=== PATIENT | female | born 1945 | race Caucasian/White ===

== ENCOUNTER 2017-01-26 06:04 | Observation (INO) | payer MEDICARE ==
[~2017-01-26] VITALS: Ht 165.1 cm; Wt 75.7 kg
[~2017-01-26 06:04] MED LIST: ALLERGY10 M1 PO; AMLODIPINE BESYL5 MG PO; ANTI-DIARRHEAL2 M1 PO; ASPIR-TRIN325 MG PO; ASPIRIN EC325 MG PO; ASPIRIN EC81 MG PO; ATIVAN1 MG PO; B-121000 MC2 PO; B-125000 MC1 SL; BIOTIN5 MG PO; BUSPIRONE HCL5 MG PO; CALCITRATE200 MG PO; CALCIUM 500 +1 EAC2 PO; CLOPIDOGREL75 MG PO; CRESTOR10 MG PO; CYMBALTA30 MG PO; CYMBALTA60 MG PO; DEXILANT30 MG PO; FLUTICASONE PRO16 GM NAS; ISOSORBIDE MONO30 MG PO; LEVOXYL137 MCG PO; LIPITOR40 MG PO; LIPITOR80 MG PO; LISINOPRIL-HCT1 EAC1 PO; LISINOPRIL-HCT1 EACH PO; LISINOPRIL2.5 MG PO; LORATADINE10 MG PO; MACROBID 100 M100 MG PO; MAGNESIUM400 MG PO; METFORMIN HCL500 M1 PO; METFORMIN HCL500 MG PO; METHOCARBAMOL500 MG PO; MULTIVITAMINS1 EAC7 PO; MULTIVITAMINS1 EAC8 PO; NITROSTAT0.4 MG SL; NORVASC2.5 MG PO; OMEPRAZOLE20 MG PO; PLAVIX75 MG PO; SYNTHROID25 MCG PO; TYLENOL COLD M240 M1 PO; TYLENOL325 MG PO; VITAMIN C60 MG PO; VITAMIN D31000 UNIT PO; VITAMIN D3400 UNI1 PO; VITAMIN D50000 UNI1 PO; VOLTAREN100 GM TOP; XANAX0.25 MG PO
[2017-01-26] MEDS ORDERED: AMOX TR-K CLV1 EAC1 PO (06:24)
[2017-01-26] MEDS ORDERED: VOLTAREN100 GM TOP (06:26)
--- OUTSIDE RECORDS SUMMARY | 2017-01-26 06:57 | XMS ---
Demographics + + + | Address | [address] | | | [address] | | | [place] [address] | + + + | Preferred Language | Unknown | + + + | Marital Status | Unknown | + + + | Judaism Affiliation | Unknown | + + + | Race | Unknown | + + + | Ethnic Group | Unknown | + + + Author + + + | Author | [facility] | + + + | Organization | [facility] | + + + | Address | [address] | | | [place] [address] | + + + | Phone | | + + + Care Team Providers + + + + | Care Occupational Health Specialist Name | Role | Phone | + + + + Unavailable | Unavailable | + + + + PROBLEMS +---------+ + + +--------+ + + | Type | Condition | ICD9-CM | [id number] | Onset | Condition | SNOMED | | | | Code | Code | Dates | Status | Code | +---------+ + + +--------+ + + | Problem | NEHEMIAH | G47.33 | | | Active | 47116749 | | | (obstructi | | | | | | | | ve sleep | | | | | | | | apnea) | | | | | | +---------+ + + +--------+ + + | Problem | Stenosis | I65.21 | | | Active | 3297442100 | | | of right | | | | | [address]6879 | | | carotid | | | | | | | | artery | | | | | | +---------+ + + +--------+ + + | Problem | Cellulitis | 681.10 | | | Active | 95052072 | | | of toe | | | | | | | | NOS | | | | | | +---------+ + + +--------+ + + | Problem | Acute | 461.9 | | | Active | 90417125 | | | sinusitis | | | | | | | | NOS | | | | | | +---------+ + + +--------+ + + | Problem | Vitamin D | 268.9 | | | Active | 92296615 | | | deficiency | | | | | | | | NOS | | | | | | +---------+ + + +--------+ + + | Problem | Hypothyroi | 244.9 | | | Active | 44088997 | | | dism | | | | | | | | (acquired) | | | | | | +---------+ + + +--------+ + + | Problem | Hyperchole | 272.0 | | | Active | 03515325 | | | sterolemia | | | | | | +---------+ + + +--------+ + + | Problem | Cognitive | 438.0 | | | Active | 649872386 | | | deficits | | | | | | +---------+ + + +--------+ + + | Problem | Sleep | 786.09 | | | Active | 42935101 | | | apnea | | | | | | +---------+ + + +--------+ + + | Problem | Fibromyalg | | M79.7 | | Active | 277070719 | | | ia | | | | | | +---------+ + + +--------+ + + | Problem | Hypertensi | 401.9 | | | Active | 38084824 | | | on | | | | | | +---------+ + + +--------+ + + | Problem | Aortic | I35.8 | | | Active | 9555043 | | | heart | | | | | | | | murmur on | | | | | | | | examinatio | | | | | | | | n | | | | | | +---------+ + + +--------+ + + | Problem | Diabetes | 250.00 | | | Active | 20365741 | | | mellitus | | | | | | | | type II | | | | | | +---------+ + + +--------+ + + | Problem | Heart | | R01.1 | | Active | 30539568 | | | murmur | | | | | | +---------+ + + +--------+ + + | Problem | Diabetes | E11.9 | | | Active | 362319961 | | | mellitus | | | | | | | | type 2 in | | | | | | | | nonobese | | | | | | +---------+ + + +--------+ + + | Problem | Aortic | I35.0 | | | Active | 31638940 | | | stenosis | | | | | | +---------+ + + +--------+ + + | Problem | Gout | | M10.9 | | Active | 41787120 | +---------+ + + +--------+ + + | Problem | Carotid | I65.29 | | | Active | 75356651 | | | stenosis | | | | | | +---------+ + + +--------+ + + | Problem | JOINT | 719.47 | | | Active | 288616541 | | | PAIN-ANKLE | | | | | | +---------+ + + +--------+ + + | Problem | Panic | 300.01 | | | Active | 58221734 | +---------+ + + +--------+ + + | Problem | Allergic | 477.8 | | | Active | 71090427 | | | rhinitis | | | | | | | | due to | | | | | | | | allergen | | | | | | +---------+ + + +--------+ + + | 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 | | | Active | 40675418 | | | (arteriosc | | | | | | | | lerotic | | | | | | | | cardiovasc | | | | | | | | ular | | | | | | | | disease) | | | | | | +---------+ + + +--------+ + + | Problem | Dyslipidem | E78.5 | | | Active | 549356266 | | | ia | | | | | | +---------+ + + +--------+ + + | Problem | Right-side | I63.9 | | | Active | 936790543 | | | d | | | | | | | | cerebrovas | | | | | | | | cular | | | | | | | | accident | | | | | | | | (CVA) | | | | | | +---------+ + + +--------+ + + | Problem | Essential | | I10 | | Active | 02420418 | | | hypertensi | | | | | | | | on | | | | | | +---------+ + + +--------+ + + | Problem | Postop | Z48.812 | | | Active | | | | carotid | | | | | | | | endarterec | | | | | | | | rosaline | | | | | | | | surveillan | | | | | | | | ce, | | | | | | | | encounter | | | | | | | | for | | | | | | +---------+ + + +--------+ + + | Problem | Fibromyalg | 729.1 | | | Active | 031464716 | | | ia muscle | | | | | | | | pain | | | | | | +---------+ + + +--------+ + + | Problem | Iron | | D50.9 | | Active | 18529602 | | | deficiency | | | | | | | | anemia | | | | | | +---------+ + + +--------+ + + | Problem | GSE | 579.0 | | | Active | 186109208 | | | (gluten-se | | | | | | | | nsitive | | | | | | | | enteropath | | | | | | | | y) | | | | | | +---------+ + + +--------+ + + | Problem | Obesity, | 278.00 | | | Active | 400534601 | | | unspecifie | | | | | | | | d | | | | | | +---------+ + + +--------+ + + | Problem | Coccygodyn | 724.79 | | | Active | 69054431 | | | ia | | | | | | +---------+ + + +--------+ + + | Problem | Osteoarthr | M15.9 | | | Active | 982736906 | | | itis of | | | | | | | | multiple | | | | | | | | joints | | | | | | +---------+ + + +--------+ + + | Problem | Situationa | F43.21 | | | Active | 84044200 | | | l | | | | | | | | depression | | | | | | +---------+ + + +--------+ + + | Problem | Type II | 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
--- OUTSIDE RECORDS SUMMARY | 2017-01-26 06:57 | XMS ---
Demographics + + + | Address | [address] | | | [address] | | | [place] [address] | + + + | Preferred Language | Unknown | + + + | Marital Status | Unknown | + + + | Lutheran Affiliation | Unknown | + + + | Race | Unknown | + + + | Ethnic Group | Unknown | + + + Author + + + | Author | [facility] | + + + | Organization | [facility] | + + + | Address | [address] | | | [place] [address] | + + + | Phone | | + + + Care Team Providers + + + + | Care Rehabilitation Director Name | Role | Phone | + + + + Unavailable | Unavailable | + + + + PROBLEMS +---------+ + + +--------+ + + | Type | Condition | ICD9-CM | [id number] | Onset | Condition | SNOMED | | | | Code | Code | Dates | Status | Code | +---------+ + + +--------+ + + | Problem | NEHEMIAH | G47.33 | | | Active | 85504699 | | | (obstructi | | | | | | | | ve sleep | | | | | | | | apnea) | | | | | | +---------+ + + +--------+ + + | Problem | Stenosis | I65.21 | | | Active | 3626382051 | | | of right | | | | | [address] | | | carotid | | | | | | | | artery | | | | | | +---------+ + + +--------+ + + | Problem | Cellulitis | 681.10 | | | Active | 56227497 | | | of toe | | | | | | | | NOS | | | | | | +---------+ + + +--------+ + + | Problem | Acute | 461.9 | | | Active | 40774644 | | | sinusitis | | | | | | | | NOS | | | | | | +---------+ + + +--------+ + + | Problem | Vitamin D | 268.9 | | | Active | 96691711 | | | deficiency | | | | | | | | NOS | | | | | | +---------+ + + +--------+ + + | Problem | Hypothyroi | 244.9 | | | Active | 96323891 | | | dism | | | | | | | | (acquired) | | | | | | +---------+ + + +--------+ + + | Problem | Hyperchole | 272.0 | | | Active | 35753101 | | | sterolemia | | | | | | +---------+ + + +--------+ + + | Problem | Cognitive | 438.0 | | | Active | 117430246 | | | deficits | | | | | | +---------+ + + +--------+ + + | Problem | Sleep | 786.09 | | | Active | 88627262 | | | apnea | | | | | | +---------+ + + +--------+ + + | Problem | Fibromyalg | | M79.7 | | Active | 280946408 | | | ia | | | | | | +---------+ + + +--------+ + + | Problem | Hypertensi | 401.9 | | | Active | 87561010 | | | on | | | | | | +---------+ + + +--------+ + + | Problem | Aortic | I35.8 | | | Active | 8237043 | | | heart | | | | | | | | murmur on | | | | | | | | examinatio | | | | | | | | n | | | | | | +---------+ + + +--------+ + + | Problem | Diabetes | 250.00 | | | Active | 76946026 | | | mellitus | | | | | | | | type II | | | | | | +---------+ + + +--------+ + + | Problem | Heart | | R01.1 | | Active | 86946404 | | | murmur | | | | | | +---------+ + + +--------+ + + | Problem | Diabetes | E11.9 | | | Active | 745962410 | | | mellitus | | | | | | | | type 2 in | | | | | | | | nonobese | | | | | | +---------+ + + +--------+ + + | Problem | Aortic | I35.0 | | | Active | 03426176 | | | stenosis | | | | | | +---------+ + + +--------+ + + | Problem | Gout | | M10.9 | | Active | 12924293 | +---------+ + + +--------+ + + | Problem | Carotid | I65.29 | | | Active | 05524044 | | | stenosis | | | | | | +---------+ + + +--------+ + + | Problem | JOINT | 719.47 | | | Active | 241462052 | | | PAIN-ANKLE | | | | | | +---------+ + + +--------+ + + | Problem | Panic | 300.01 | | | Active | 38019043 | +---------+ + + +--------+ + + | Problem | Allergic | 477.8 | | | Active | 94732335 | | | rhinitis | | | | | | | | due to | | | | | | | | allergen | | | | | | +---------+ + + +--------+ + + | 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 | | | Active | 09040366 | | | (arteriosc | | | | | | | | lerotic | | | | | | | | cardiovasc | | | | | | | | ular | | | | | | | | disease) | | | | | | +---------+ + + +--------+ + + | Problem | Dyslipidem | E78.5 | | | Active | 538226209 | | | ia | | | | | | +---------+ + + +--------+ + + | Problem | Right-side | I63.9 | | | Active | 134318279 | | | d | | | | | | | | cerebrovas | | | | | | | | cular | | | | | | | | accident | | | | | | | | (CVA) | | | | | | +---------+ + + +--------+ + + | Problem | Essential | | I10 | | Active | 38493908 | | | hypertensi | | | [...] | 729.1 | | | Active | 838974054 | | | ia muscle | | | | | | | | pain | | | | | | +---------+ + + +--------+ + + | Problem | Iron | | D50.9 | | Active | 03006285 | | | deficiency | | | | | | | | anemia | | | | | | +---------+ + + +--------+ + + | Problem | GSE | 579.0 | | | Active | 733292171 | | | (gluten-se | | | | | | | | nsitive | | | | | | | | enteropath | | | | | | | | y) | | | | | | +---------+ + + +--------+ + + | Problem | Obesity, | 278.00 | | | Active | 740194430 | | | unspecifie | | | | | | | | d | | | | | | +---------+ + + +--------+ + + | Problem | Coccygodyn | 724.79 | | | Active | 59576236 | | | ia | | | | | | +---------+ + + +--------+ + + | Problem | Osteoarthr | M15.9 | | | Active | 282932165 | | | itis of | | | | | | | | multiple | | | | | | | | joints | | | | | | +---------+ + + +--------+ + + | Problem | Situationa | F43.21 | | | Active | 44726675 | | | l | | | | | | | | depression | | | | | | +---------+ + + +--------+ + + | Problem | Type II | 250.00 | | | Active | 29615373 | | | diabetes | | | | | | | | mellitus | | | | | | +---------+ + + +--------+ + + | Problem | Foot pain, | 729.5 | | | Active | 79652060 | | | right | | | | | | +---------+ + + +--------+ + + ALLERGIES + + + + +--------+ | Substance | Reaction | Event Type | Date | Status | + + + + +--------+ | Metoprolol | edema | Drug Allergy | Jan, | Active | | Tartrate | | | | | + + + + +--------+ | Humalog | N/V/D, headache | Drug Allergy | Jan, | Active | + + + + +--------+ | DiphenhydrAMINE | Unknown | Drug Allergy | Jan, | Active | | HCl | | | | | + + + + +--------+ | Dkiufnok-YCV-4 | rash/blisters | Drug Allergy | Jan, | Active | + + + + +--------+ | Actos | Edema | Drug Allergy | Jan, | Active | + + + + +--------+ | Abilify | shortness of | Drug Allergy | Jan, | Active | | | breath, | | | | | | hives,rash | | | | + + + + +--------+ | Shellfish | anaphylaxis | Non Drug | Jan, | Active | | | | Allergy | | | + + + + +--------+ | HMG-CoA-R | generalized | Non Drug | Jan, | Active | | | myalgias | Allergy | | | + + + + +--------+ | Bee Sting | anaphylaxis | Non Drug | Jan, | Active | | | | Allergy | | | + + + + +--------+ | Clonidine | Anaphlyactic | Non Drug | Jan, | Active | | | Shock | Allergy | | | + + + + +--------+ SOCIAL HISTORY Never Assessed PLAN OF CARE + +---------+ | Activity | Details | + +---------+ +---+ | | +---+ + + + | Follow Up | prn Reason:null | + + + | Pending Test | Throat Culture | + + + VITAL SIGNS + + + + | Height | 66 in | 2017-01-24 | + + + + | Weight | 162.0 lbs | 2017-01-24 | + + + + | BMI | 26.14 kg/m2 | 2017-01-24 | + + + + | Temperature | 96.9 degrees Fahrenheit | 2017-01-24 | + + + + | Heart Rate | 63 /min | 2017-01-24 | + + + + | Blood pressure systolic | 149 mm Hg | 2017-01-24 | + + + + | Blood pressure diastolic | 59 mm Hg | 2017-01-24 | + + + + MEDICATIONS + + + + + + + +--------+ | Medicati | Instruct | Dosage | Frequenc | Start | End Date | Duration | Status | | on | ions | | y | Date | | | | + + + + + + + +--------+ | Nitrosta | | | | | | | Active | | t 0.4 MG | | | | | | | | + + + + + + + +--------+ | Multivit | Orally | 1 | 24h | | | | Active | | amins | Once a | chewable | | | | | | | | day | | | | | | | + + + + + + + +--------+ | Lipitor | Orally | 1 tablet | 24h | | | | Active | | 80 MG | Once a | | | | | | | | | day | | | | | | | + + + + + + + +--------+ | Isosorbi | Orally | 1 tablet | 24h | | | | Active | | de | Once a | | | | | | | | Mononitr | day | | | | | | | | ate ER | | | | | | | | | 30 MG | | | | | | | | + + + + + + + +--------+ | Biotin | Orally | 1 tablet | 24h | | | | Active | | | Once a | | | | | | | | | day | | | | | | | + + + + + + + +--------+ | Plavix | Orally | 1 tablet | 24h | | | | Active | | 75 MG | Once a | | | | | | | | | day | | | | | | | + + + + + + + +--------+ | Cymbalta | | TAKE ONE | | | | 30 | Active | | 60mg | | CAPSULE | | | | | | | | | BY | | | | | | | | | MOUTH | | | | | | | | | EVERY | | | | | | | | | DAY | | | | | | + + + + + + + +--------+ | Calcium | Orally | 1 tablet | 24h | | | | Active | | Citrate | Once a | with | | | | | | | + D 950 | Day | meals | | | | | | | mg | | | | | | | | + + + + + + + +--------+ | Voltaren | | | | | | | Active | | 1 % | | | | | | | | + + + + + + + +--------+ | BusPIRon | | TAKE 1 | | | | 30 | Active | | e HCl 5 | | TABLET | | | | | | | | | BY MOUTH | | | | | | | | | TWICE | | | | | | | | | DAILY | | | | | | + + + + + + + +--------+ | Vitamin | Orally | 1 tablet | 24h | | | | Active | | B-12 | Once a | | | | | | | | 1000 MCG | day | | | | | | | + + + + + + + +--------+ | Tylenol | Orally | 2 tablet | 6h | | | | Active | | 325 MG | every 6 | as | | | | | | | | hrs | needed | | | | | | + + + + + + + +--------+ | Multi | Orally | 2 | | | | | Active | | Symptom | prn | tablets | | | | | | | Allergy | | as | | | | | | | Relief | | needed | | | | | | | 2-5-325 | | | | | | | | | MG | | | | | | | | + + + + + + + +--------+ | EpiPen 1 | Intramus | as | | 10 Joselito, | | | Active | | MG/ML | cular | directed | | 2011 | | | | | | PRN | | | | | | | | | allergic | | | | | | | | | | | | | | | | | | response | | | | | | | + + + + + + + +--------+ | Lisinopr | | TAKE 1 | | | | 90 | Active | | il-Finley | | TABLET | | | | | | | chloroth | | BY MOUTH | | | | | | | iazide 0 | | EVERY | | | | | | | | | DAY | | | | | | + + + + + + + +--------+ | Norvasc | Orally | 1 tablet | 24h | Jun, | | 30 | Active | | 2.5 MG | Once a | | | 2016 | | day(s) | | | | day | | | | | | | + + + + + + + +--------+ | Aspirin | Orally | 2 tablet | 24h | | | | Active | | 81 MG | Once a | | | | | | | | | day | | | | | | | + + + + + + + +--------+ | Leg | Orally | 1-2 | | | | | Active | | Cramp | Q4H | tab(s) | | | | | | | Relief - | | | | | | | | + + + + + + + +--------+ | Levothyr | Orally | 1 tablet | 24h | | | | Active | | oxine | Once a | every | | | | | | | Sodium | day | morning | | | | | | | 150 MCG | | on an | | | | | | | | | empty | | | | | | | | | stomach | | | | | | + + + + + + + +--------+ | MetFORMI | Orally | 1 tablet | 24h | 08 Jun, | | 30 | Active | | N HCl ER | Once a | with | | 2016 | | day(s) | | | 500 mg | day | evening | | | | | | | | | meal | | | | | | + + + + + + + +--------+ | Augmenti | p.o. | one | 12h | | 8 Oct, | 7 days | Active | | n 875 mg | twice a | tablet | | | 2017 | | | | | day | | | | | | | + + + + + + + +--------+ RESULTS + +--------+------+ + | Name | Result | Date | Reference Range | + +--------+------+ + | Strep Gp A Rapid | | | | | (IH) | | | | + +--------+------+ + PROCEDURES + + +--------+ + | Procedure | Date Ordered | Result | Body Site | + + +--------+ + | STREP A ASSAY | Jan 24, 2017 | | | | W/OPTIC | | | | + + +--------+ + IMMUNIZATIONS No Known Immunizations MEDICAL (GENERAL) HISTORY + + + + | Type | Description | Date | + + + + | Medical History | DM | | + + + + | Medical History | Hypertension | | + + + + | Medical History | Fibromyalgia | | + + + + | Medical History | Cognitive Dysfunction | | + + + + | Medical History | Fatty Liver | | + + + + | Medical History | Hypercholestrol | | + + + + | Medical History | GERD | | + + + + | Medical History | Depression/Anxiety | | + + + + | Medical History | Hypothyroid | | + + + + | Medical History | Vitamin D deficiency | | + + + + | Medical History | hx/o TIA/CVA | | + + + + | Medical History | Aortic Stenosis with mild | | | | insufficiency by ECHO in | | | | [place], [place]. | | + + + + | Medical History | two-dimensional echo on | | | | 07/26/14: Normal LVE at about | | | | 70-75%, sigmoid septum, | | | | mildly calcified aortic | | | | valve with stenosis, mild | | | | aortic valve insufficiency, | | | | mild mitral valve regurg, | | | | mild tricuspid regurg, | | | | normal right-sided pressure | | + + + + | Medical History | total knee replacement | | | | Melisa Morillo | | + + + + | Medical History | Status post stent placement | | | | 08/09, Melisa Vincent | | | | Ilia, retained 80% | | | | occlusion of one other | | | | vessel., On Imdur. | | + + + + | Medical History | 10/07/2015 4:15:40 PM > | | | | greater than 70% | | | | right-sided carotid artery | | | | stenosis, recent CVA, | | | | transferred to [facility] | | | | [facility] for | | | | cardiac stenting discharged | | | | to [facility] for | | | | stroke rehabilitation, | | | | discharged home, mild | | | | drooping on the left mild | | | | slurring of speech | | + + + + | Medical History | last cardiac catheter | | | | 07/27/15 left main okay, 40% | | | | mid LAD, left circumflex | | | | okay, 90% OM 2, 50% right | | | | mid RCA, O. and 2 stented. | | + + + + | Medical History | last echo 10/01/15: | | | | Borderline concentric LVH, | | | | LVEF greater than 70% mild | | | | to moderate left ear and | | | | mild AI aortic valve area | | | | 1.2 cm, peak/mean gradient | | | | 25/16 mm mercury, trace MR, | | | | mild TR, estimated | | | | systolic PA P. 2328 mmHg | | + + + + | Medical History | last stress test in a | | + + + + | Medical History | last echo 10/01/15, [facility] | | | | [facility], normal | | | | sinus rhythm, 67 beats per | | | | minute | | + + + + | Medical History | Dr. Denny Pardo, | | | | cardiology, last visit | | | | 10/30/15 | | + + + + | Medical History | Right CVA with LEFT sided | | | | weakness, 10/10/15. | | + + + + | Medical History | 11/24-11/26/15 TIA, admitted to | | | | [facility] | | + + + + | Medical History | Bariatric Surgery Dr. Marcial | | | | Lisa 2012: [phone] | | | | fax; [phone] | | + + + + | Medical History | Sleep Apnea: on CPAP,2013 | | | | last sleep study with | | | | Maykel took her off the | | | | CPAP. | | + + + + | Medical History | 01/05/17: Colonoscopy, [facility], | | | | Dr. Jane, external | | | | hemorrhoids, moderate | | | | sigmoid diverticulosis, | | | | previous personal history | | | | of colon polyps, none seen | | | | this colonoscopy | | + + + + | Surgical History | Thyroidectomy | 2005 | + + + + | Surgical History | Appendectomy | | + + + + | Surgical History | Cholecystectomy | | + + + + | Surgical History | Hyst | | + + + + | Surgical History | R Knee arthroscopic surg | | + + + + | Surgical History | Oral surg for sleep apnea | | + + + + | Surgical History | Sinus surg | | + + + + | Surgical History | L breast lumpectomy | | + + + + | Surgical History | Eye exam | 2010 | + + + + | Surgical History | bypass bariatric: Bariatric | | | | Surgery Dr. Aniket Lisa | | | | 2011 | | + + + + | Surgical History | Abdominal hernia x's 3 | | + + + + | Surgical History | stent in heart | | + + + + | Surgical History | knee replacement | june 2015 | + + + + | Hospitalization History | see above | | + + + + | Hospitalization History | heart attack | 07-26-2015 | + + + +"
--- OUTSIDE RECORDS SUMMARY | 2017-01-26 06:57 | XMS ---
Demographics + + + | Address | [address] | | | [address] | | | [place] [address] | + + + | Preferred Language | Unknown | + + + | Marital Status | Unknown | + + + | Tenriism Affiliation | Unknown | + + + | Race | Unknown | + + + | Ethnic Group | Unknown | + + + Author + + + | Author | [facility] | + + + | Organization | [facility] | + + + | Address | [address] | | | [place] [address] | + + + | Phone | | + + + Care Team Providers + + + + | Care Needle Control Cheniller Name | Role | Phone | + + + + Unavailable | Unavailable | + + + + PROBLEMS + + + + + + + + | Type | Condition | ICD9-CM | [id number]-XQ | Onset | Condition | SNOMED | | | | Code | Code | Dates | Status | Code | + + + + + + + + | Problem | Stenosis | I65.21 | | | Active | [id number] | | | of right | | | | | [address]956 | | | carotid | | | | | | | | artery | | | | | | + + + + + + + + | Problem | Postop | [...] for | | | | | | + + + + + + + + | Problem | Cellulitis | 681.10 | | | Active | 01249614 | | | of toe | | | | | | | | NOS | | | | | | + + + + + + + + | Problem | Acute | 461.9 | | | Active | 67580513 | | | sinusitis | | | | | | | | NOS | | | | | | + + + + + + + + | Problem | Vitamin D | 268.9 | | | Active | 55475656 | | | deficiency | | | | | | | | NOS | | | | | | + + + + + + + + | Problem | Hypothyroi | 244.9 | | | Active | 62637840 | | | dism | | | | | | | | (acquired) | | | | | | + + + + + + + + | Problem | Hyperchole | 272.0 | | | Active | 12872540 | | | sterolemia | | | | | | + + + + + + + + | Problem | Cognitive | 438.0 | | | Active | 537515294 | | | deficits | | | | | | + + + + + + + + | Problem | Sleep | 786.09 | | | Active | 12242487 | | | apnea | | | | | | + + + + + + + + | Problem | Fibromyalg | | M79.7 | | Active | 251526032 | | | ia | | | | | | + + + + + + + + | Problem | Hypertensi | 401.9 | | | Active | 66686614 | | | on | | | | | | + + + + + + + + | Problem | Aortic | I35.8 | | | Active | 4279387 | | | heart | | | | | | | | murmur on | | | | | | | | examinatio | | | | | | | | n | | | | | | + + + + + + + + | Problem | Diabetes | 250.00 | | | Active | 41339197 | | | mellitus | | | | | | | | type II | | | | | | + + + + + + + + | Problem | Heart | | R01.1 | | Active | 45733204 | | | murmur | | | | | | + + + + + + + + | Problem | Diabetes | E11.9 | | | Active | 687979005 | | | mellitus | | | | | | | | type 2 in | | | | | | | | nonobese | | | | | | + + + + + + + + | Problem | Aortic | I35.0 | | | Active | 77543817 | | | stenosis | | | | | | + + + + + + + + | Problem | Gout | | M10.9 | | Active | 86653247 | + + + + + + + + | Problem | Carotid | I65.29 | | | Active | 78311926 | | | stenosis | | | | | | + + + + + + + + | Problem | JOINT | 719.47 | | | Active | 787122103 | | | PAIN-ANKLE | | | | | | + + + + + + + + | Problem | Panic | 300.01 | | | Active | 43074839 | + + + + + + + + | Problem | Allergic | 477.8 | | | Active | 89462671 | | | rhinitis | | | | | | | | due to | | | | | | | | allergen | | | | | | + + + + + + + + | 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 | | | Active | 58784682 | | | (arteriosc | | | | | | | | lerotic | | | | | | | | cardiovasc | | | | | | | | ular | | | | | | | | disease) | | | | | | + + + + + + + + | Problem | Dyslipidem | E78.5 | | | Active | 519931920 | | | ia | | | | | | + + + + + + + + | Problem | Right-side | I63.9 | | | Active | 947168225 | | | d | | | | | | | | cerebrovas | | | | | | | | cular | | | | | | | | accident | | | | | | | | (CVA) | | | | | | + + + + + + + + | Problem | Essential | | I10 | | Active | 15135068 | | | hypertensi | | | | | | | | on | | | | | | + + + + + + + + | Assessment | Cellulitis | | L03.115 | 04 September, | Active | 1280421038 | | | of right | | | 2017 | | 9913718 | | | lower limb | | | | | | + + + + + + + + | Problem | Fibromyalg | 729.1 | | | Active | 301966705 | | | ia muscle | | | | | | | | pain | | | | | | + + + + + + + + | Assessment | Type II | 250.00 | | 12 August, | Active | 22943105 | | | diabetes | | | 2017 | | | | | mellitus | | | | | | + + + + + + + + | Problem | GSE | 579.0 | | | Active | 260918181 | | | (gluten-se | | | | | | | | nsitive | | | | | | | | enteropath | | | | | | | | y) | | | | | | + + + + + + + + | Problem | Obesity, | 278.00 | | | Active | 879996915 | | | unspecifie | | | | | | | | d | | | | | | + + + + + + + + | Assessment | Normocytic | D64.9 | | 12 August, | Active | 632612265 | | | anemia | | | 2016 | | | + + + + + + + + | Problem | Coccygodyn | 724.79 | | | Active | 56081006 | | | ia | | | | | | + + + + + + + + | Problem | Osteoarthr | M15.9 | | | Active | 521522115 | | | itis of | | | | | | | | multiple | | | | | | | | joints | | | | | | + + + + + + + + | Problem | Situationa | F43.21 | | | Active | 91615953 | | | l | | | | | | | | depression | | | | | | + + + + + + + + | Problem | Type II | 250.00 | | | Active | 23282005 | | | diabetes | | | | | | | | mellitus | | | | | | + + + + + + + + | Problem | Foot pain, | 729.5 | | | Active | 40898087 | | | right | | | | | | + + + + + + + + ALLERGIES + + + + +--------+ | Substance | Reaction | Event Type | Date | Status | + + + + +--------+ | Metoprolol | edema | Drug Allergy | August, | Active | | Tartrate | | | | | + + + + +--------+ | Humalog | N/V/D, headache | Drug Allergy | August, | Active | + + + + +--------+ | DiphenhydrAMINE | Unknown | Drug Allergy | August, | Active | | HCl | | | | | + + + + +--------+ | Vnticoxa-XUB-5 | rash/blisters | Drug Allergy | August, | Active | + + + + +--------+ | Actos | Edema | Drug Allergy | August, | Active | + + + + +--------+ | Abilify | shortness of | Drug Allergy | August, | Active | | | breath, | | | | | | hives,rash | | | | + + + + +--------+ | Shellfish | anaphylaxis | Non Drug | August, | Active | | | | Allergy | | | + + + + +--------+ | HMG-CoA-R | generalized | Non Drug | August, | Active | | | myalgias | Allergy | | | + + + + +--------+ | Bee Sting | anaphylaxis | Non Drug | August, | Active | | | | Allergy | | | + + + + +--------+ | Clonidine | Anaphlyactic | Non Drug | August, | Active | | | Shock | Allergy | | | + + + + +--------+ SOCIAL HISTORY No smoking Hx information available PLAN OF CARE VITAL SIGNS + + + + | Height | 66 in | 2016-09-04 | + + + + | Weight | 159 lbs | 2016-09-04 | + + + + | BMI | 25.66 kg/m2 | 2016-09-04 | + + + + | Temperature | 98.2 degrees Fahrenheit | 2016-09-04 | + + + + | Heart Rate | 75 /min | 2016-09-04 | + + + + | Blood pressure systolic | 131 mm Hg | 2016-09-04 | + + + + | Blood pressure diastolic | 72 mm Hg | 2016-09-04 | + + + + MEDICATIONS + + + + + + + +--------+ | Medicati | Instruct | Dosage | Frequenc | Start | End Date | Duration | Status | | on | ions | | y | Date | | | | + + + + + + + +--------+ | Vitamin | Orally | 1 | | 01 Jun, | 28 Nov, | 90 | Active | | D | weekly | capsule | | 2016 | 2017 | day(s) | | | (Ergocal | | | | | | | | | ciferol) | | | | | | | | | [address] | | | | | | | | | UNIT | | | | | | | [...] MG/ML | cular | directed | | 2012 | | | | | | PRN [...] + + + +--------+ | Lisinopr | Orally | 1 tablet | 24h | Jan, | | | Active | | [place] | Once a | | | 2012 | | | | | chloroth | day | | | | | | | | iazide | | | | | | | | | 20-25 MG | | | | | | [...] + + + + + +--------+ | Clindamy | Orally | 1 | 8h | 30 August, | 17 August, | 10 | Active | | marty HCl | every 8 | capsule | | 2017 | 2017 | day(s) | | | 150 MG | hrs | | | | | | | [...] + + + + + +--------+ RESULTS No Results PROCEDURES + + + + + | Procedure | Date Ordered | Related Diagnosis | Body Site | + + + + + | Office Visit, Est | September 04, 2016 | | | | Pt., Level 3 | | | | + + + + + | HG A1C LEVEL | September 04, 2016 | | | | 7.0-9.0% | | | | + + + + + | [facility] MED/CURRENT | September 04, 2016 | | | | MED MERGE | | | | + + + + + IMMUNIZATIONS No Known Immunizations"
--- OUTSIDE RECORDS SUMMARY | 2017-01-26 06:57 | XMS ---
Demographics + + + | Address | [address] | | | [address] | | | [place] [address] | + + + | Preferred Language | Unknown | + + + | Marital Status | Unknown | + + + | Synagogue Affiliation | Unknown | + + + | Race | Unknown | + + + | Ethnic Group | Unknown | + + + Author + + + | Author | [facility] | + + + | Organization | [facility] | + + + | Address | [address] | | | [place] [address] | + + + | Phone | | + + + Care Team Providers + + + + | Care Nursing Educator Name | Role | Phone | + + + + Unavailable | Unavailable | + + + + PROBLEMS +---------+ + + +--------+ + + | Type | Condition | ICD9-CM | NCO02-DV | Onset | Condition | SNOMED | | | | Code | Code | Dates | Status | Code | +---------+ + + +--------+ + + | Problem | NEHEMIAH | G47.33 | | | Active | 69363091 | | | (obstructi | | | | | | | | ve sleep | | | | | | | | apnea) | | | | | | +---------+ + + +--------+ + + | Problem | Stenosis | I65.21 | | | Active | 4669764937 | | | of right | | | | | [address] | | | carotid | | | | | | | | artery | | | | | | +---------+ + + +--------+ + + | Problem | Cellulitis | 681.10 | | | Active | 48487003 | | | of toe | | | | | | | | NOS | | | | | | +---------+ + + +--------+ + + | Problem | Acute | 461.9 | | | Active | 43499000 | | | sinusitis | | | | | | | | NOS | | | | | | +---------+ + + +--------+ + + | Problem | Vitamin D | 268.9 | | | Active | 62497833 | | | deficiency | | | | | | | | NOS | | | | | | +---------+ + + +--------+ + + | Problem | Hypothyroi | 244.9 | | | Active | 32215489 | | | dism | | | | | | | | (acquired) | | | | | | +---------+ + + +--------+ + + | Problem | Hyperchole | 272.0 | | | Active | 84037612 | | | sterolemia | | | | | | +---------+ + + +--------+ + + | Problem | Cognitive | 438.0 | | | Active | 318649768 | | | deficits | | | | | | +---------+ + + +--------+ + + | Problem | Sleep | 786.09 | | | Active | 95562319 | | | apnea | | | | | | +---------+ + + +--------+ + + | Problem | Fibromyalg | | M79.7 | | Active | 905541189 | | | ia | | | | | | +---------+ + + +--------+ + + | Problem | Hypertensi | 401.9 | | | Active | 10312188 | | | on | | | | | | +---------+ + + +--------+ + + | Problem | Aortic | I35.8 | | | Active | 4466107 | | | heart | | | | | | | | murmur on | | | | | | | | examinatio | | | | | | | | n | | | | | | +---------+ + + +--------+ + + | Problem | Diabetes | 250.00 | | | Active | 06416461 | | | mellitus | | | | | | | | type II | | | | | | +---------+ + + +--------+ + + | Problem | Heart | | R01.1 | | Active | 73111972 | | | murmur | | | | | | +---------+ + + +--------+ + + | Problem | Diabetes | E11.9 | | | Active | 008499999 | | | mellitus | | | | | | | | type 2 in | | | | | | | | nonobese | | | | | | +---------+ + + +--------+ + + | Problem | Aortic | I35.0 | | | Active | 51084160 | | | stenosis | | | | | | +---------+ + + +--------+ + + | Problem | Gout | | M10.9 | | Active | 27903547 | +---------+ + + +--------+ + + | Problem | Carotid | I65.29 | | | Active | 91912703 | | | stenosis | | | | | | +---------+ + + +--------+ + + | Problem | JOINT | 719.47 | | | Active | 873221699 | | | PAIN-ANKLE | | | | | | +---------+ + + +--------+ + + | Problem | Panic | 300.01 | | | Active | 49149232 | +---------+ + + +--------+ + + | Problem | Allergic | 477.8 | | | Active | 98204709 | | | rhinitis | | | | | | | | due to | | | | | | | | allergen | | | | | | +---------+ + + +--------+ + + | 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 | | | Active | 52803699 | | | (arteriosc | | | | | | | | lerotic | | | | | | | | cardiovasc | | | | | | | | ular | | | | | | | | disease) | | | | | | +---------+ + + +--------+ + + | Problem | Dyslipidem | E78.5 | | | Active | 583247645 | | | ia | | | | | | +---------+ + + +--------+ + + | Problem | Right-side | I63.9 | | | Active | 324185248 | | | d | | | | | | | | cerebrovas | | | | | | | | cular | | | | | | | | accident | | | | | | | | (CVA) | | | | | | +---------+ + + +--------+ + + | Problem | Essential | | I10 | | Active | 08121308 | | | hypertensi | | | [...] | 729.1 | | | Active | 393001036 | | | ia muscle | | | | | | | | pain | | | | | | +---------+ + + +--------+ + + | Problem | Iron | | D50.9 | | Active | 63788487 | | | deficiency | | | | | | | | anemia | | | | | | +---------+ + + +--------+ + + | Problem | GSE | 579.0 | | | Active | 575244812 | | | (gluten-se | | | | | | | | nsitive | | | | | | | | enteropath | | | | | | | | y) | | | | | | +---------+ + + +--------+ + + | Problem | Obesity, | 278.00 | | | Active | 745895626 | | | unspecifie | | | | | | | | d | | | | | | +---------+ + + +--------+ + + | Problem | Coccygodyn | 724.79 | | | Active | 93340255 | | | ia | | | | | | +---------+ + + +--------+ + + | Problem | Osteoarthr | M15.9 | | | Active | 569668687 | | | itis of | | | | | | | | multiple | | | | | | | | joints | | | | | | +---------+ + + +--------+ + + | Problem | Situationa | F43.21 | | | Active | 27992479 | | | l | | | | | | | | depression | | | | | | +---------+ + + +--------+ + + | Problem | Type II | 250.00 | | | Active | 61983243 | | | diabetes | | | | | | | | mellitus | | | | | | +---------+ + + +--------+ + + | Problem | Foot pain, | 729.5 | | | Active | 27950413 | | | right | | | | | | +---------+ + + +--------+ + + ALLERGIES + + + + +--------+ | Substance | Reaction | Event Type | Date | Status | + + + + +--------+ | Metoprolol | edema | Drug Allergy | Oct, | Active | | Tartrate | | | | | + + + + +--------+ | Humalog | N/V/D, headache | Drug Allergy | Oct, | Active | + + + + +--------+ | DiphenhydrAMINE | Unknown | Drug Allergy | Oct, | Active | | HCl | | | | | + + + + +--------+ | Gwhwkxme-KOA-9 | rash/blisters | Drug Allergy | Oct, | Active | + + + + +--------+ | Actos | Edema | Drug Allergy | Oct, | Active | + + + + +--------+ | Abilify | shortness of | Drug Allergy | Oct, | Active | | | breath, | | | | | | hives,rash | | | | + + + + +--------+ | Shellfish | anaphylaxis | Non Drug | Oct, | Active | | | | Allergy | | | + + + + +--------+ | HMG-CoA-R | generalized | Non Drug | Oct, | Active | | | myalgias | Allergy | | | + + + + +--------+ | Bee Sting | anaphylaxis | Non Drug | Oct, | Active | | | | Allergy | | | + + + + +--------+ | Clonidine | Anaphlyactic | Non Drug | Oct, | Active | | | Shock | Allergy | | | + + + + +--------+ SOCIAL HISTORY No smoking Hx information available PLAN OF CARE + +---------+ | Activity | Details | + +---------+ +---+ | | +---+ + + + | Follow Up | 2-3 Months Reason:null | + + + VITAL SIGNS + + + + | Height | 66 in | 2016-11-04 | + + + + | Weight | 155.1 lbs | 2016-11-04 | + + + + | BMI | 25.03 kg/m2 | 2016-11-04 | + + + + | Temperature | 98.4 degrees Fahrenheit | 2016-11-04 | + + + + | Heart Rate | 64 /min | 2016-11-04 | + + + + | Blood pressure systolic | 123 mm Hg | 2016-11-04 | + + + + | Blood pressure diastolic | 60 mm Hg | 2016-11-04 | + + + + MEDICATIONS + [...] MG | Once a | | | 2015 | | day(s) | | | | day | | | | | | | + + + + + + + +--------+ | Vitamin | Orally | 1 | | Jun, | Nov, | 90 | Active | | D | weekly | capsule | | 2017 | 2017 | day(s) | | | (Ergocal | | | | | | | | | ciferol) | | | | | | | | | [address] | | | | | | | [...] Orally | 1 tablet | 24h | 01 Oct, | | | Active | | [place] | Once a | | | 2012 [...] + + + + +--------+ RESULTS + +--------+ + + | Name | Result | Date | Reference Range | + +--------+ + + | Vitamin B12 and | | 2016-11-04 | | | Folate | | | | + +--------+ + + | Vitamin B12 | | | | + +--------+ + + | Folate (Folic | | | | | Acid), Serum | | | | + +--------+ + + | Iron and Total Iron | | 2016-11-04 | | | Binding | | | | + +--------+ + + | IRON | | | | + +--------+ + + | TIBC | | | | + +--------+ + + | % SATURATION | | | | + +--------+ + + | UIBC | | | | + +--------+ + + | TRANSFERRIN | | | | + +--------+ + + | Reticulocyte Count | | 2016-11-04 | | + +--------+ + + PROCEDURES + + + + + | Procedure | Date Ordered | Related Diagnosis | Body Site | + + + + + | Office Visit, Est | November 04, 2016 | | | | Pt., Level 3 | | | | + + + + + | [facility] MED/CURRENT | November 04, 2016 | | | | MED MERGE | | | | + + + + + IMMUNIZATIONS No Known Immunizations"
--- OUTSIDE RECORDS SUMMARY | 2017-01-26 06:57 | XMS ---
Demographics + + + | Address | [address] | | | [place] [address] | + + + | Preferred Language [...] | + + + | Organization | [facility] | + + + | Address | [address] | | | [place] [address] | + + + | Phone | | + + + Care Team Providers + + + + | Care Director Of Web Marketing Name | Role | Phone | + + + + Unavailable | Unavailable | + + + + PROBLEMS + + + + + + + + | Type | Condition | ICD9-CM | DWV62-NM | Onset | Condition | SNOMED | [...] + + | Assessment | Cellulitis | L03.031 | | 30 August, | Active | [id number] | | | of karson | | | 2016 | | 9487146 | | | mary right | | | | | | + + + + + + + + | Problem | Acute | 461.9 | | | Active | 15705637 | | | sinusitis | | | | | | | | NOS | | | | | | + + + + + + + + | Problem | Stenosis | I65.21 | | | Active | 6786997787 | | | of right | | | | | [address] | | | carotid | | | | | | | | artery | | | | | | + + + + + + + + | Problem | Cellulitis | 681.10 | | | Active | 05630400 | | | of toe | | | | | | | | NOS | | | | | | + + + + + + + + | Problem | Vitamin D | 268.9 | | | Active | 72498606 | | | deficiency | | | | | | | | NOS | | | | | | + + + + + + + + | Problem | Hypothyroi | 244.9 | | | Active | 90397365 | | | dism | | | | | | | | (acquired) | | | | | | + + + + + + + + | Problem | Hyperchole | 272.0 | | | Active | 31820703 | | | sterolemia | | | | | | + + + + + + + + | Problem | Cognitive | 438.0 | | | Active | 818008856 | | | deficits | | | | | | + + + + + + + + | Problem | Situationa | F43.21 | | | Active | 87101187 | | | l | | | | | | | | depression | | | | | | + + + + + + + + | Problem | Sleep | 786.09 | | | Active | 34762252 | | | apnea | | | | | | + + + + + + + + | Problem | Fibromyalg | | M79.7 | | Active | 625874438 | | | ia | | | | | | + + + + + + + + | Problem | Hypertensi | 401.9 | | | Active | 13802778 | | | on | | | | | | + + + + + + + + | Problem | Aortic | I35.8 | | | Active | 4650197 | | | heart | | | | | | | | murmur on | | | | | | | | examinatio | | | | | | | | n | | | | | | + + + + + + + + | Problem | Aortic | I35.0 | | | Active | 15784836 | | | stenosis | | | | | | + + + + + + + + | Problem | Heart | | R01.1 | | Active | 75665630 | | | murmur | | | | | | + + + + + + + + | Problem | Carotid | I65.29 | | | Active | 47842923 | | | stenosis | | | | | | + + + + + + + + | Problem | Right-side | I63.9 | | | Active | 270265681 | | | d | | | [...] | 300.01 | | | Active | 64315481 | + + + + + + + + | Problem | Allergic | 477.8 | | | Active | 12526633 | | | rhinitis | | | | | | | | due to | | | | | | | | allergen | | | | | | + + + + + + + + | Problem | Diabetes | 250.00 | | | Active | 20692057 | | | mellitus | | | | | | | | type II | | | | | | + + + + + + + + | Problem | Dyslipidem | E78.5 | | | Active | 563207968 | | | ia | | | | | | + + + + + + + + | Problem | Diabetes | E11.9 | | | Active | 211767360 | | | mellitus | | | | | | | | type 2 in | | | | | | | | nonobese | | | | | | + + + + + + + + | Problem | Essential | | I10 | | Active | 14321510 | | | hypertensi | | | | | | | | on | | | | | | + + + + + + + + | 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 | | | Active | 60178076 | | | (arteriosc | | | [...] | 724.79 | | | Active | 59505278 | | | ia | | | | | | + + + + + + + + | Problem | Fibromyalg | 729.1 | | | Active | 422811333 | | | ia muscle | | | | | | | | pain | | | | | | + + + + + + + + | Problem | JOINT | 719.47 | | | Active | 409602925 | | | PAIN-ANKLE | | | | | | + + + + + + + + | Problem | Obesity, | 278.00 | | | Active | 010736947 | | | unspecifie | | | | | | | | d | | | | | | + + + + + + + + | Problem | Foot pain, | 729.5 | | | Active | 67859315 | | | right | | | | | | + + + + + + + + | Problem | Osteoarthr | M15.9 | | | Active | 399855916 | | | itis of | | | | | | | | multiple | | | | | | | | joints | | | | | | + + + + + + + + | Problem | GSE | 579.0 | | | Active | 757501112 | | | (gluten-se | | | | | | | | nsitive | | | | | | | | enteropath | | | | | | | | y) | | | | | | + + + + + + + + | Problem | Type II | 250.00 | | | Active | 13536650 | | | diabetes | | | [...] | + + + + +--------+ | Thhvlhxa-LMR-4 | rash/blisters | Drug Allergy | August, [...] | | +---+ + + + | Pending Test | Phosphorus, Serum | + + + | Pending Test | Uric Acid, Serum | + + + | Pending Test | CBC With Differential/Platelet | + + + | Pending Test | Comp. Metabolic Panel (14) | + + + | Pending Test | Microalbumin, Urine (Random) | + + + | Pending Test | Lipid Panel | + + + | Pending Test | Magnesium | + + + | Pending Test | Hemoglobin A1C Panel | + + + | | 09/04/[address] LinReason: | + + + VITAL SIGNS + + + + | Height | 66 in | 2016-08-30 | + + + + | Weight | 157.0 lbs | 2016-08-30 | + + + + | BMI | 25.34 kg/m2 | 2016-08-30 | + + + + | Temperature | 99.0 degrees Fahrenheit | 2016-08-30 | + + + + | Heart Rate | 66 /min | 2016-08-30 | + + + + | Blood pressure systolic | 133 mm Hg | 2016-08-30 | + + + + | Blood pressure diastolic | 69 mm Hg | 2016-08-30 | + + + + MEDICATIONS + [...] 1 | 8h | 30 August, | 09 September, | 10 | Active | | marty [...] | 1 tablet | 24h | 01 Jan, | | | Active | | [place] | Once a | | | 2012 [...] | 1 tablet | 24h | 08 Mar, | | 30 | Active | | [...] | 1 | | 01 Jun, | Nov, | 90 | Active | | D | weekly | capsule | | 2017 | 2017 | day(s) | | | (Ergocal | | | | | | | | | ciferol) | | | | | | | | | [address] | | | | | | | | | UNIT | | | | | | | | + + + + + + + +--------+ | Chlorphe | Orally | 1 tablet | 6h | | | | Active | | niramine | every 6 | as | | | | | | | Maleate | hrs | needed | | | | | | | 4 MG | | | | | | [...] + + | Office Visit, Est | August 30, 2016 | | | | Pt., Level 3 | | | | + + + + + | [facility] MED/CURRENT | August 30, 2016 | | | | MED MERGE | | | | + + + + + | DOC MEDS VERIFIED | August 30, 2016 | | | | W/PT OR RE | | | | + + + + + IMMUNIZATIONS No Known Immunizations"
--- NOTE | 2017-01-26 12:45 | NUR ---
PT TO FLOOR VIA STRETCHER ACCOMPANIED BY DARIAN Novoa, NURSING EDUCATION TECHNICIAN. TO ROOM 119 AT 1235. PT ALERT, ORIENTED X 4.
--- NOTE | 2017-01-26 14:15 | NUR ---
PATIENT SITTING AT THE EDGE OF HER BED EATING LUNCH. NO NEEDS AT THIS TIME.
--- NOTE | 2017-01-26 14:28 | NUR ---
PT SITTING UP AT SIDE OF BED, EATING LATE LUNCH. HAS HAD NO BOWEL MOVEMENTS SINCE ARRIVAL TO FLOOR.
--- NOTE | 2017-01-26 14:36 | NUR ---
PATIENT UP TO BATHROOM WITH ONE PERSON ASSIST TO VOID AND BM. PATIENT IS FAIRLY STEADY ON HER FEET.
--- NOTE | 2017-01-26 15:36 | NUR ---
NOTIFIED DR. MORRISON THAT PT'S TOES ON LEFT FOOT ARE REDDENED.
--- NOTE | 2017-01-26 16:15 | NUR ---
DR. MORRISON IN TO SEE PT. PT IN BED. NOTIFIED DR. MORRISON THAT PT HAS A RED/PURPLE AREA TO SACRAL AREA. DR. MORRISON ASKED THIS RN TO D/C PT'S WHALEY CATHETER.
--- NOTE | 2017-01-26 16:34 | NUR ---
PT IN BED RESTING QUIETLY. GAVE PT LIPITOR SCHEDULED. PT REPORTED THAT SHE IS FEELING BETTER.
--- NOTE | 2017-01-26 17:00 | NUR ---
PATIENT SITTING ON THE EDGE OF THE BED WITH DINNER TRAY. CALL BUTTON IN REACH. NO OTHER NEEDS AT THIS TIME.
--- NOTE | 2017-01-26 18:29 | NUR ---
PT TO FLOOR FROM EMERGENCY ROOM THIS AFTERNOON. REPORTED SEVERAL DAYS OF DIARRHEA. ANEMIA NOTED ON E.D. LABS. PT ALERT, ORIENTED X 4. UP EIY[facility] 1 PERSON ASSIST. NEEDS STOOL SAMPLE SENT TO LAB. STOOL TESTED IN E.D. POSITIVE FOR BLOOD. HAS LR INFUSING AT 125 ML/HR. ON ADA DIET, APETITE GOOD. ON RA, LUNGS CTA, HRR. BOWEL TONES HYPERACTIVE.
--- NOTE | 2017-01-26 18:29 | NUR ---
PATIENT SITTING AT EDGE OF BED VISITING WITH FAMILY IN ROOM. CALL BUTTON IN REACH FRESH ICE WATER GIVEN NO OTHER NEEDS AT THIS TIME.
--- NOTE | 2017-01-26 18:38 | EKG ---
[facility] [address] [place] [address] Signed Sinus bradycardia T wave abnormality, consider inferior ischemia Abnormal ECG When compared with ECG of 29-JUN-2016 13:37, Significant changes have occurred Confirmed by TOMY MORRISON MD ([id number]) on 01/26/2017 6:38:12 PM Electronically Signed By: TOMY MORRISON MD 01/26/17 1838 PATIENT NAME: TERRELL BECERRIL CROMWELL Electrocardiogram DATE OF : 47 PHYSICIAN: TOMY MORRISON MD REPORT #: [id number] REPORT IS CONFIDENTIAL AND NOT TO BE RELEASED WITHOUT AUTHORIZATION
--- NOTE | 2017-01-26 19:00 | NUR ---
REPORT RECEIVED FROM OFFGOING RN. PT SITTING UP AT EDGE OF BED VISITING WITH FAMILY. PT STATES THAT SHE WOULD LIKE TO GET READY FOR BED SOON. DENIES OTHER NEEDS AT THIS TIME. SCDS SET UP. PT STATES IN THE PAST THEY HAVE MADE HER FEEL CLAUSTERPHOBIC BUT IS WILLING TO TRY THEM. PT HAS CALL LIGHT WITHIN REACH. AGREES TO CALL FOR NEEDS.
--- NOTE | 2017-01-26 20:12 | NUR ---
PT ASSESSMENT COMPLETE. BT'S HYPERACTIVE. PT REPORTS SLIGHT TENDERNESS TO ABD. CONTINUES TO HAVE LOOSE STOOL, INCONTINENCE PAD IN PLACE. PT DENIES NAUSEA AT THIS TIME. PT READY FOR BED, CPAP IN PLACE APPROPRIATELY. PT DENIES OTHER NEEDS AT THIS TIME. CALL LIGHT WITHIN REACH.
--- NOTE | 2017-01-26 20:47 | NUR ---
WHITEBOARD UPDATED. FRESH ICE WATER GIVEN.
--- NOTE | 2017-01-26 22:30 | NUR ---
PT RESTING IN BED WITH EYES CLOSED. CPAP IN PLACE, RESPIRATIONS EVEN AND UNLABORED. PT APPEARS TO BE SLEEPING. CALL LIGHT WITHIN REACH.
--- NOTE | 2017-01-27 00:04 | NUR ---
PATIENT IN BED SLEEPING
--- NOTE | 2017-01-27 00:51 | NUR ---
PT RESTING IN BED WITH EYES CLOSED, CPAP IN PLACE. PT WAKES EASILY. STATES THAT SHE HAS BEEN SLEEPING WELL. REQUESTS TO USE THE BATHROOM. PT TO BATHROOM WITH 1 PA. INCONTINENT X 1 IN PULLUP. NEW PULLUP PROVIDED. PT ASSESSMENT COMPLETE. PT DENIES PAIN OR NAUSEA. BT'S REMAIN HYPERACTIVE, ABD SLIGHTLY TENDER. PT DENIES OTHER NEEDS AT THIS TIME. RESTING IN BED WITH CPAP IN PLACE. CALL LIGHT WITHIN REACH
--- NOTE | 2017-01-27 02:50 | NUR ---
PT RESTING IN BED WITH EYES CLOSED. RESPIRATIONS EVEN AND UNLABORED. PT APPEARS TO BE SLEEPING. CPAP IN PLACE APPROPRIATELY. CALL LIGHT WITHIN REACH.
--- NOTE | 2017-01-27 04:52 | NUR ---
PT RESTED WELL THIS SHIFT. BM X 2, NO REPORTS OF NAUSEA, CRAMPING, OR CHEST PAIN. PT INCONTINENT OF BOWEL AND BLADDER, PULL UP ATTENDS IN PLACE. CPAP @ NIGHT. LR @ 125. 1 PA.
--- NOTE | 2017-01-27 05:18 | NUR ---
PT ASSESSMENT COMPLETE. PT DENIES PAIN. BT'S HAVE DECREASED FROM HYPERACTIVE TO ACTIVE. TENDERNESS TO ABD PALPATION CONTINUES. PT UP TO USE THE BATHROOM WITH 1 PA. NO EPISODE OF INCONTINENCE PRESENT IN ATTEND. SM BM IN TOILET. WARM BLANKET PROVIDED. PT DENIES OTHER NEEDS. CALL LIGHT WITHIN REACH. CPAP IN BED NEXT TO PT, PT ABLE TO APPLY INDEPENDENTLY.
--- NOTE | 2017-01-27 07:00 | NUR ---
PT PLACED ON ISOLATION PRECAUTIONS PER A CDIFF TEST RESULT PENDING.
--- NOTE | 2017-01-27 07:45 | NUR ---
PATIENT SITTING UP IN BED. BREAKFAST GIVEN. NO NEEDS AT THIS TIME.
--- NOTE | 2017-01-27 07:56 | NUR ---
PT SITTING UP ON EDGE OF BED TALKING TO MED STUDENT. BREAKFAST AT BEDSIDE. EXPLAINED CDIFF PRECAUTIONS TO PT. MORNING MEDS GIVEN AND ANSWERED QUESTIONS. HUNG NEW BAG OF IVF.
--- NOTE | 2017-01-27 10:45 | NUR ---
ASSISTED PATIENT WITH DRESSING IN HOME CLOTHES TO BE DISCHARGED. SHAMPOO CAP DONE BY RN. ORAL CARE DONE. HANDS AND FACE WASHED. NO OTHER NEEDS AT THIS TIME.
--- NOTE | 2017-01-27 11:04 | NUR ---
PT IV REMOVED WNL. INFORMED PT OF NEGATIVE CDIFF TEST. PT HAPPY TO BE GOING HOME. WASHED PT HAIR WITH SHOWER CAP. PT CURRENTLY DRYING IT. PHARM IN FOR EDUCATION ON MEDS.
--- NOTE | 2017-01-27 11:25 | NUR ---
PT HAD NEGATIVE CDIFF RESULT, NOW OFF OF PRECAUTIONS.
--- NOTE | 2017-01-27 11:26 | NUR ---
DISCHARGE INFORMATION AND INSTRUCTIONS GIVEN. PT VERBALIZED UNDERSTANDING. EDUCATION GIVEN ON FOLLOW UP APPT. DIET FOR DIAHRREA, STAYING HYDRATED ETC. PT STATED THAT SHE IS CAREFUL TO STAY HYDRATED AND HAS A GOOD DIET OTHER THAN A DAILY FREEZY DRINK FROM [employer].
== END 2017-01-27 11:58 | disposition home or self-care (01) ==
LOC: ED 06:04 → MS 06:05
PROVIDERS: ADMIT Internal Medicine
DX: A08.4 Viral intestinal infection, unspecified (principal); E86.0 Dehydration; D64.9 Anemia, unspecified; I10 Essential (primary) hypertension; E11.9 Type 2 diabetes mellitus without complications; J45.909 Unspecified asthma, uncomplicated; I25.2 Old myocardial infarction; G47.33 Obstructive sleep apnea (adult) (pediatric); I25.110 Atherosclerotic heart disease of native coronary artery with unstable angina pectoris; I77.89 Other specified disorders of arteries and arterioles; M79.7 Fibromyalgia; E78.5 Hyperlipidemia, unspecified; R07.9 Chest pain, unspecified; F41.8 Other specified anxiety disorders; Z98.84 Bariatric surgery status; Z88.8 Allergy status to other drugs, medicaments and biological substances; Z79.2 Long term (current) use of antibiotics; Z95.5 Presence of coronary angioplasty implant and graft; Z86.73 Personal history of transient ischemic attack (TIA), and cerebral infarction without residual deficits; Z79.1 Long term (current) use of non-steroidal anti-inflammatories (NSAID); Z79.82 Long term (current) use of aspirin; Z79.84 Long term (current) use of oral hypoglycemic drugs; Z79.02 Long term (current) use of antithrombotics/antiplatelets; Z79.899 Other long term (current) drug therapy
CPT/HCPCS: 36415; 71275; 74174; 80053; 81001; 83690; 84484; 85025; 85651; 87045; 87046; 87077; 87205; 87493; 93005; 93010; 96361; 96374; 99285; G0378; J2405; J7030; J7120; Q9967

== ENCOUNTER 2017-01-29 18:53 | Emergency (ER) | payer MEDICARE ==
[~2017-01-29] VITALS: Ht 165.1 cm; Wt 75.5 kg
[~2017-01-29 18:53] MED LIST changes: +AMOX TR-K CLV1 EAC1 PO
== END 2017-01-29 19:49 | disposition home or self-care (01) ==
LOC: ED 18:53
DX: S03.2XXA Dislocation of tooth, initial encounter (principal); I10 Essential (primary) hypertension; E11.9 Type 2 diabetes mellitus without complications; J45.909 Unspecified asthma, uncomplicated; I25.2 Old myocardial infarction; Z86.73 Personal history of transient ischemic attack (TIA), and cerebral infarction without residual deficits; Z95.5 Presence of coronary angioplasty implant and graft; Z98.84 Bariatric surgery status; Z90.49 Acquired absence of other specified parts of digestive tract; Z90.710 Acquired absence of both cervix and uterus; Z88.8 Allergy status to other drugs, medicaments and biological substances; Z91.038 Other insect allergy status; Z91.013 Allergy to seafood; Z79.899 Other long term (current) drug therapy; Z79.82 Long term (current) use of aspirin; X58.XXXA Exposure to other specified factors, initial encounter
CPT/HCPCS: 99282

== ENCOUNTER 2017-03-19 08:44 | Emergency (ER) | payer MEDICARE ==
[~2017-03-19] VITALS: Ht 165.1 cm; Wt 75.5 kg
[2017-03-19] MEDS ORDERED: LEVOFLOXACIN500 MG PO (09:02)
--- NOTE | 2017-03-20 20:38 | EKG ---
[facility] [address] [place] [address] Signed Normal sinus rhythm Septal infarct , age undetermined Abnormal ECG When compared with ECG of 26-JAN-2017 07:13, Septal infarct is now present T wave inversion no longer evident in Inferior leads T wave inversion no longer evident in Anterior leads Confirmed by BRIAN QUINONEZ MD ([id number]) on 03/20/2017 8:38:19 PM Electronically Signed By: BRIAN QUINONEZ MD 03/20/17 2038 PATIENT NAME: TERRELL BECERRIL KNIPPA Electrocardiogram DATE OF : 47 PHYSICIAN: BRIAN QUINONEZ MD REPORT #: [id number] REPORT IS CONFIDENTIAL AND NOT TO BE RELEASED WITHOUT AUTHORIZATION
== END 2017-03-19 13:27 | disposition home or self-care (01) ==
LOC: ED 08:44
DX: R07.2 Precordial pain (principal); I10 Essential (primary) hypertension; E11.9 Type 2 diabetes mellitus without complications; I25.2 Old myocardial infarction; J45.909 Unspecified asthma, uncomplicated; Z86.73 Personal history of transient ischemic attack (TIA), and cerebral infarction without residual deficits; Z98.84 Bariatric surgery status; Z90.49 Acquired absence of other specified parts of digestive tract; Z90.710 Acquired absence of both cervix and uterus; Z88.8 Allergy status to other drugs, medicaments and biological substances; Z91.013 Allergy to seafood; Z79.899 Other long term (current) drug therapy; Z79.82 Long term (current) use of aspirin; Z79.84 Long term (current) use of oral hypoglycemic drugs
CPT/HCPCS: 71010; 80053; 84484; 85025; 85610; 85730; 93005; 93010; 96374; 99284; J2270

== ENCOUNTER 2017-04-23 19:31 | Emergency (ER) | payer MEDICARE ==
[~2017-04-23] VITALS: Ht 162.6 cm; Wt 70.3 kg
[~2017-04-23 19:31] MED LIST changes: +LEVOFLOXACIN500 MG PO
[2017-04-23] MEDS ORDERED: NORCO 5-325 TA1 EACH PO (23:53)
== END 2017-04-24 00:18 | disposition home or self-care (01) ==
LOC: ED 19:31
DX: M54.41 Lumbago with sciatica, right side (principal); I10 Essential (primary) hypertension; E11.9 Type 2 diabetes mellitus without complications; J45.909 Unspecified asthma, uncomplicated; I25.2 Old myocardial infarction; Z86.73 Personal history of transient ischemic attack (TIA), and cerebral infarction without residual deficits; Z88.8 Allergy status to other drugs, medicaments and biological substances; Z91.013 Allergy to seafood; Z91.030 Bee allergy status; Z79.899 Other long term (current) drug therapy; Z79.84 Long term (current) use of oral hypoglycemic drugs; Z79.82 Long term (current) use of aspirin
CPT/HCPCS: 72131; 99284

== ENCOUNTER 2018-07-06 08:40 | Emergency (ER) | payer MEDICARE ==
[~2018-07-06] VITALS: Ht 162.6 cm; Wt 70.5 kg
[~2018-07-06 08:40] MED LIST changes: +NORCO 5-325 TA1 EACH PO
[2018-07-06] MEDS ORDERED: ELIQUIS5 MG PO (09:06)
[2018-07-06] MEDS ORDERED: CLONAZEPAM0.5 MG PO (09:07)
[2018-07-06] MEDS ORDERED: EPINEPHRIN0.3 MG/0.3 IM (09:10)
[2018-07-06] MEDS ORDERED: MAGNESIUM500 MG PO (09:11)
[2018-07-06] MEDS ORDERED: PROTONIX40 MG PO (09:13)
[2018-07-06] MEDS ORDERED: SEROQUEL25 MG PO (09:14)
[2018-07-06] MEDS ORDERED: ULTRAM50 MG PO (09:15)
== END 2018-07-06 11:11 | disposition home or self-care (01) ==
LOC: ED 08:40
DX: M25.572 Pain in left ankle and joints of left foot (principal); M25.561 Pain in right knee; M25.562 Pain in left knee; W10.9XXA Fall (on) (from) unspecified stairs and steps, initial encounter; I10 Essential (primary) hypertension; E11.9 Type 2 diabetes mellitus without complications; J45.909 Unspecified asthma, uncomplicated; Z86.73 Personal history of transient ischemic attack (TIA), and cerebral infarction without residual deficits; I25.2 Old myocardial infarction; Z88.8 Allergy status to other drugs, medicaments and biological substances; Z91.013 Allergy to seafood; Z91.030 Bee allergy status; Z79.899 Other long term (current) drug therapy; Z79.82 Long term (current) use of aspirin
CPT/HCPCS: 70450; 73560; 73610; 99284-25

== ENCOUNTER 2019-05-24 11:05 | Emergency (ER) | payer MEDICARE, OTHER ==
[~2019-05-24] VITALS: Ht 162.6 cm; Wt 68.2 kg
[~2019-05-24 11:05] MED LIST changes: +CLONAZEPAM0.5 MG PO; +ELIQUIS5 MG PO; +EPINEPHRIN0.3 MG/0.3 IM; +KEFLEX250 MG PO; +MAGNESIUM500 MG PO; +METOPROLOL SUCC25 MG PO; +OYSTER SHELL 51 EAC2 PO; +PROTONIX40 MG PO; +SEROQUEL25 MG PO; +ULTRAM50 MG PO
[2019-05-24] MEDS ORDERED: DULOXETINE HCL60 MG PO (11:31)
[2019-05-24] MEDS ORDERED: DULOXETINE HCL20 MG PO (11:31)
[2019-05-24] MEDS ORDERED: FLUTICASONE PRO16 GM NAS (11:32)
[2019-05-24] MEDS ORDERED: JANUVIA25 MG PO (11:34)
== END 2019-05-24 12:54 | disposition home or self-care (01) ==
LOC: ED 11:05
DX: S92.322A Displaced fracture of second metatarsal bone, left foot, initial encounter for closed fracture (principal); S92.332A Displaced fracture of third metatarsal bone, left foot, initial encounter for closed fracture; S92.342A Displaced fracture of fourth metatarsal bone, left foot, initial encounter for closed fracture; S92.352A Displaced fracture of fifth metatarsal bone, left foot, initial encounter for closed fracture; S83.91XA Sprain of unspecified site of right knee, initial encounter; S70.01XA Contusion of right hip, initial encounter; X50.9XXA Other and unspecified overexertion or strenuous movements or postures, initial encounter; I10 Essential (primary) hypertension; E11.9 Type 2 diabetes mellitus without complications; Z86.73 Personal history of transient ischemic attack (TIA), and cerebral infarction without residual deficits; G47.30 Sleep apnea, unspecified; Z88.8 Allergy status to other drugs, medicaments and biological substances; Z91.013 Allergy to seafood; Z91.030 Bee allergy status; Z79.899 Other long term (current) drug therapy
CPT/HCPCS: 73502; 73560; 73630; 99283

== ENCOUNTER 2019-06-30 12:42 | Emergency (ER) | payer MEDICARE, OTHER ==
[~2019-06-30] VITALS: Ht 162.6 cm; Wt 68.2 kg
[~2019-06-30 12:42] MED LIST changes: +DULOXETINE HCL20 MG PO; +DULOXETINE HCL60 MG PO; +JANUVIA25 MG PO
== END 2019-06-30 14:27 | disposition home or self-care (01) ==
LOC: ED 12:42
DX: S16.1XXA Strain of muscle, fascia and tendon at neck level, initial encounter (principal); S00.83XA Contusion of other part of head, initial encounter; I10 Essential (primary) hypertension; E11.9 Type 2 diabetes mellitus without complications; I25.2 Old myocardial infarction; Z79.899 Other long term (current) drug therapy; W18.30XA Fall on same level, unspecified, initial encounter
CPT/HCPCS: 70450; 99283-25

== ENCOUNTER 2019-10-12 22:24 | Emergency (ER) | payer MEDICARE, OTHER ==
--- NOTE | 2019-10-13 10:04 | EKG ---
[facility] [address] [place], [place] [address] Signed Sinus bradycardia Otherwise normal ECG When compared with ECG of 01-DEC-2018 13:52, No significant change was found Confirmed by TYSON SOTELO DO ([id number]) on 10/13/2019 10:04:18 AM Electronically Signed By: TYSON SOTELO DO 10/13/19 1004 PATIENT NAME: TERRELL BECERRIL WATERLOO Electrocardiogram DATE OF : 47 PHYSICIAN: TYSON SOTELO DO REPORT #: [id number] REPORT IS CONFIDENTIAL AND NOT TO BE RELEASED WITHOUT AUTHORIZATION
== END 2019-10-13 00:54 | disposition home or self-care (01) ==
LOC: ED 22:24
DX: S06.0X0A Concussion without loss of consciousness, initial encounter (principal); S00.83XA Contusion of other part of head, initial encounter; S80.212A Abrasion, left knee, initial encounter; S80.211A Abrasion, right knee, initial encounter; I48.91 Unspecified atrial fibrillation; I10 Essential (primary) hypertension; E11.9 Type 2 diabetes mellitus without complications; J45.909 Unspecified asthma, uncomplicated; I25.2 Old myocardial infarction; G47.30 Sleep apnea, unspecified; Z99.89 Dependence on other enabling machines and devices; Z79.01 Long term (current) use of anticoagulants; Z88.8 Allergy status to other drugs, medicaments and biological substances; Z91.013 Allergy to seafood; Z91.011 Allergy to milk products; Z91.030 Bee allergy status; Z79.899 Other long term (current) drug therapy; Z79.02 Long term (current) use of antithrombotics/antiplatelets; W19.XXXA Unspecified fall, initial encounter
CPT/HCPCS: 70450; 72125; 73030; 73080; 80053; 82150; 82550; 83690; 85025; 85610; 85730; 86850; 86900; 86901; 90471; 90715; 93005; 93010; 96374; 96375; 99284-25; G0480; J1170; J2405

== ENCOUNTER 2020-02-03 16:22 | Emergency (ER) | payer MEDICARE, OTHER ==
[~2020-02-03] VITALS: Ht 162.6 cm; Wt 68.2 kg
--- OUTSIDE RECORDS SUMMARY | ~2020-02-03 | XMS | Encounter Summary ---
Demographics + + + | Address | [address] | | | [place] [address] | + + + | Home Phone | | + + + | Preferred Language | Unknown | + + + | Marital Status | Single | + + + | Alevism Affiliation | 1013 | + + + | Race | White | + + + | Ethnic Group | Not or | + + + Author + + + | Author | [facility] | | | and [place] | + + + | Organization | [facility] | | | and [place] | + + + | Address | Unknown | + + + | Phone | Unavailable | + + + Support + + +---------+ + | Name | Relationship | Address | Phone | + + +---------+ + | Andersno Rollins | ECON | Unknown | | + + +---------+ + | Maria Elena Rollins | ECON | Unknown | | + + +---------+ + Care Team Providers + +------+ + | Care Hazard Waste Handler Name | Role | Phone | + +------+ + | Wilson Lin MD | PCP | | + +------+ + Encounter Details +--------+ + + + + | Date | Type | Department | Care Team | Description | +--------+ + + + + | 10/04/ | Orders Only | [facility] | Teresa Wallace MD | | | 2018 | | [facility] | [address] | | | | | [address] | [place] [address] | | | | | [place], [place] | [phone] | | | | | [address] | | | | | | [phone] | | | +--------+ + + + + Social History + +-------+ +--------+------+ | Tobacco Use | Types | Packs/Day | Years | Date | | | | | Used | | + +-------+ +--------+------+ | Never Smoker | | | | | + +-------+ +--------+------+ + +---+---+---+ | Smokeless Tobacco: | | | | | Never Used | | | | + +---+---+---+ + + +---------+ + | Alcohol Use | Drinks/Week | oz/Week | Comments | + + +---------+ + | Never | 0 Standard drinks | 0.0 | | | | or equivalent | | | + + +---------+ + + + + + | Alcohol Habits | Answer | Date Recorded | + + + + | How often do you have a drink containing | Never | 08/31/2018 | | alcohol? | | | + + + + | How many drinks containing alcohol do you | Not asked | | | have on a typical day when you are | | | | drinking? | | | + + + + | How often do you have six or more drinks on | Not asked | | | one occasion? | | | + + + + + + + + | Stress | Answer | Date Recorded | + + + + | Do you feel stress - tense, restless, | Very much | 08/31/2018 | | nervous, or anxious, or unable to sleep at | | | | night because your mind is troubled all the | | | | time - these days? | | | + + + + + + + | Sex Assigned at | Date Recorded | | | | + + + | Not on file | | + + + documented as of this encounter Functional Status + + + + | Functional Status | Response | Date of Assessment | + + + + | Are you deaf or do you have serious | No | 07/12/2017 | | difficulty hearing? | | | + + + + | Are you blind or do you have serious | No | 07/12/2017 | | difficulty seeing, even when wearing | | | | glasses? | | | + + + + | Do you have serious difficulty walking or | No | 07/12/2017 | | climbing stairs? (5 years old or older) | | | + + + + | Do you have difficulty dressing or bathing? | No | 07/12/2017 | | (5 years old or older) | | | + + + + | Because of a physical, mental, or emotional | Yes | 07/12/2017 | | condition, do you have difficulty doing | | | | errands alone such as visiting a doctor's | | | | office or shopping? [15 years old or | | | | older)] | | | + + + + + + + + | Cognitive Status | Response | Date of Assessment | + + + + | Because of a physical, mental, or emotional | No | 07/12/2017 | | condition, do you have serious difficulty | | | | concentrating, remembering, or making | | | | decisions? (5 years old or older) | | | + + + + documented as of this encounter Plan of Treatment Not on filedocumented as of this encounter Procedures + +--------+ + + + | Procedure Name | Priori | Date/Time | Associated Diagnosis | Comments | | | ty | | | | + +--------+ + + + | CV CARDIAC PROCEDURE | Routin | 10/04/2018 | | Results for this | | | e | 2:35 PM | | procedure are in the | | | | PDT | | results section. | + +--------+ + + + documented in this encounter Results CV CARDIAC PROCEDURE (10/04/2018 2:35 PM PDT) + + | Specimen | + + | | + + + + + | Narrative | Performed At | + + + | | | | | | | CORONARY INTERVENTION REPORT BRIEF HISTORY: Mrs. Rollins is a | | | 73-year-old lady with history of coronary artery disease, | | | who presented recently with shortness of breath and chest pain and | | | underwent coronary angiography, which showed subtotal occlusion of | | | mid RCA. She was referred for coronary intervention. For details | | | regarding her presentations, kindly refer to my H and P. | | | PROCEDURE: 1. Radial artery approach. 2. Selective right | | | coronary angiography. 3. Percutaneous coronary intervention | | | supported stenting of mid right coronary artery with deployment of | | | 3.0 x 16 mm Synergy drug-eluting stent, which was taken up to 16 | | | atmospheres. TECHNIQUE: The patient was brought to the laborer yard | | | in the fasting state. She was prepped and draped in the usual sterile | | | fashion for radial artery approach. The radial artery was | | | instrumented using 6-Chilean Glidesheath. JR4 guider catheter was then | | | advanced under fluoroscopic guidance over a J-tipped wire after | | | verapamil, nitroglycerin and heparin cocktail were given. Extra | | | dose of heparin was also given for therapeutic ACT. A JR4 guide was | | | engaged with the right coronary artery and projections of the right | | | coronary artery reconfirmed subtotal occlusion of the mid RCA. BMW | | | guidewire was then threaded into the RCA and placed distally. Pre | | | stenting PTCA was done with 2.5 x 12 mm emerge balloon followed by | | | advancement of 3.0 x 16 mm Synergy drug-eluting stent, which was | | | positioned across the lesion and deployed with 16 atmospheres. | | | Projection of the vessel showed excellent final result. All | | | equipment was then removed. CONCLUSION: 1. Successful stenting | | | of the right coronary artery with deployment of 3.0 x 16 mm Synergy | | | drug-eluting stent. 2. The patient will continue dual antiplatelet | | | therapy as well as Eliquis for her history of paroxysmal atrial | | | fibrillation.Read by TERESA WALLACE MD 10/05/2018 07:05 A | | | | | + + + + + | Procedure Note | + + | Steven Richards Conversion - 12/16/2018 10:34 AM PDT | | | | CORONARY INTERVENTION REPORT | | | | BRIEF HISTORY: Mrs. Rollins is a 73-year-old lady with history | | of coronary artery disease, who presented recently with shortness of breath | | and chest pain and underwent coronary angiography, which showed subtotal | | occlusion of mid RCA. She was referred for coronary intervention. For | | details regarding her presentations, kindly refer to my H and P. | | | | PROCEDURE: | | 1. Radial artery approach. | | 2. Selective right coronary angiography. | | 3. Percutaneous coronary intervention supported stenting of mid right | | coronary artery with deployment of 3.0 x 16 mm Synergy drug-eluting stent, | | which was taken up to 16 atmospheres. | | | | TECHNIQUE: The patient was brought to the laborer yard in the fasting state. | | She was prepped and draped in the usual sterile fashion for radial artery | | approach. The radial artery was instrumented using 6-Chilean Glidesheath. | | JR4 guider catheter was then advanced under fluoroscopic guidance over a | | J-tipped wire after verapamil, nitroglycerin and heparin cocktail were | | given. Extra dose of heparin was also given for therapeutic ACT. A JR4 | | guide was engaged with the right coronary artery and projections of the | | right coronary artery reconfirmed subtotal occlusion of the mid RCA. BMW | | guidewire was then threaded into the RCA and placed distally. Pre stenting | | PTCA was done with 2.5 x 12 mm emerge balloon followed by advancement of | | 3.0 x 16 mm Synergy drug-eluting stent, which was positioned across the | | lesion and deployed with 16 atmospheres. Projection of the vessel showed | | excellent final result. All equipment was then removed. | | | | CONCLUSION: | | 1. Successful stenting of the right coronary artery with deployment of 3.0 | | x 16 mm Synergy drug-eluting stent. | | 2. The patient will continue dual antiplatelet therapy as well as Eliquis | | for her history of paroxysmal atrial fibrillation.Read by TERESA WALLACE MD | | 10/05/2018 07:05 A | | | | | + + documented in this encounter Visit Diagnoses Not on filedocumented in this encounter"
--- OUTSIDE RECORDS SUMMARY | ~2020-02-03 | XMS | Encounter Summary ---
Demographics + + + | Address | [address] | | | [place] [address] | + + + | Home Phone [...] + + + | Author | [facility] | | | and [place] | + + + | Organization | [facility] | | | and [place] | + + + | Address | Unknown | + + + | Phone | Unavailable | + + + Support + + +---------+ + | Name | Relationship | Address | Phone | + + +---------+ + | Anderson Rollins | ECON | Unknown | | + + +---------+ + | Maria Elena Rollins | ECON | Unknown | | + + +---------+ + Care Team Providers + +------+ + | Care Lead Injection Mold Technician Name | Role | Phone | + +------+ + | Ole Madden DO | PCP | | + +------+ + Encounter Details +--------+ + + + + | Date | Type | Department | Care Team | Description | +--------+ + + + + | 07/18/ | Hospital | [facility] | Barrera Alonso, | | | 2016 | Encounter | MED [facility] | PT [address] | | | | | PHYSICAL THERAPY | [place], [place] | | | | | [address] [place] | [address] | | | | | [place] [address] | | | | | | [phone] | | | +--------+ + + + [...] Comments | + + +---------+ + | Yes | 0 Standard drinks | 0.0 | Rare beer | | | or equivalent | | | + + +---------+ + + + + | Sex Assigned at | Date Recorded | | | | + + + | Not on file | | + + + documented as of this encounter Medications at Time of Discharge + + + +---------+ + + | Medication | Sig | Dispensed | Refills | Start | End Date | | | | | | Date | | + + + +---------+ + + | cyanocobalamin | Take 1,000 mcg by | | 0 | | | | (VITAMIN B-12) 1000 | mouth Daily. | | | | | | MCG tablet | | | | | | + + + +---------+ + + | DULoxetine | Take 20 mg by mouth | | 0 | | | | (CYMBALTA) [address] | Daily. With 60 mg | | | | | | capsule | capsule for Total | | | | | | | dose of 80mg | | | | | + + + +---------+ + + | Multiple | Take 1 tablet by | | 0 | | | | Vitamins-Minerals | mouth Daily. | | | | | | (MULTIVITAMIN PO) | | | | | | + + + +---------+ + + | amLODIPine | Take 2.5 mg by mouth | | 0 | | 01/25/201 | | (NORVASC) 2.5 mg | Daily. | | | | 8 | | tablet | | | | | | + + + +---------+ + + | aspirin 325 mg | Take 1 tablet by | 56 | 0 | 07/19/19 | | | tablet | mouth 2 times daily | tablet | | 16 | 6 | | | for 28 days. | | | | | + + + +---------+ + + | calcium | Take 1 tablet by | | 0 | | | | citrate-vitamin D | mouth 2 times daily. | | | | 8 | | (CALCIUM + D) 315 | | | | | | | mg-200 units per | | | | | | | tablet | | | | | | + + + +---------+ + + | diphenhydrAMINE | Take 25 mg by mouth | | 0 | | | | (BENADRYL) 25 mg | every 6 hours as | | | | 7 | | tablet | needed for Itching. | | | | | + + + +---------+ + + | EPINEPHrine | Inject 0.3 mg into | | 0 | | | | (EPIPEN) 0.3 mg/0.3 | the muscle as needed | | | | 8 | | mL injection | for Anaphylaxis. | | | | | + + + +---------+ + + | | Take 1 - 2 tablets | 30 | 0 | 07/19/19 | | | HYDROcodone-acetamin | by mouth EVERY 4 to | tablet | | 16 | 6 | | ophen (NORCO) | 6 HOURS NEEDED | | | | | | 7.5-325 mg per | for Pain. | | | | | | tablet | | | | | | + + + +---------+ + + | levothyroxine | Take 175 mcg by | | 0 | | | | (SYNTHROID) 175 MCG | mouth every morning | | | | 0 | | tablet | (before breakfast). | | | | | + + + +---------+ + + | | Take 1 tablet by | | 0 | | | | lisinopril-hydrochlo | mouth Daily. | | | | 6 | | rothiazide | | | | | | | (DILMA ROJASORETIC | | | | | | | ) 20-25 MG per | | | | | | | tablet | | | | | | + + + +---------+ + + | Magnesium 500 MG | Take 500 mg by mouth | | 0 | | | | tablet | Daily. | | | | 9 | + + + +---------+ + + | metFORMIN | Take 500 mg by mouth | | 0 | | | | (GLUCOPHAGE) 500 mg | 2 times daily (with | | | | 6 | | tablet | breakfast & | | | | | | | dinner). | | | | | + + + +---------+ + + | omeprazole | Take 20 mg by mouth | | 0 | | | | (PRILOSEC) 20 mg | 2 times daily. | | | | 7 | | capsule | | | | | | + + + +---------+ + + documented as of this encounter Plan of Treatment Not on filedocumented as of this encounter Visit Diagnoses Not on filedocumented in this encounter"
--- OUTSIDE RECORDS SUMMARY | ~2020-02-03 | XMS | Encounter Summary ---
Demographics + + + | Address | [address] | | | [place] [address] | + + + | Home Phone | | + + + | Preferred Language | Unknown | + + + | Marital Status | Single | + + + | Uatsdin Affiliation | 1013 | + + + | Race | White | + + + | Ethnic Group | Not or | + + + Author + + + | Author | [facility] | | | and [place] | + + + | Organization | [facility] | | | and [...] Team Providers + +------+ + | Care Resident Assistant Cna Name | Role | Phone | + +------+ + | Wilson Lin MD | PCP | | + +------+ + Encounter Details +--------+ + + + + | Date | Type | Department | Care Team | Description | +--------+ + + + + | 10/02/ | Hospital | [facility] | Conversion | Pain | | 2016 | Encounter | CONVERSION [address] | Transaction, | | | | | [address] | Provider Unknown | | | | | [place], [place] | [phone] | | | | | [address] | | | | | | [phone] | | | +--------+ + + + [...] do you have serious | No | 07/26/2015 | | difficulty hearing? | | | + + + + | Are you blind or do you have serious | No | 07/26/2015 | | difficulty seeing, even when wearing | | | | glasses? | | | + + + + | Do you have serious difficulty walking or | Yes | 07/26/2015 | | climbing stairs? (5 years old or older) | | | + + + + | Do you have difficulty dressing or bathing? | No | 07/26/2015 | | (5 years old or older) | | | + + + + | Because of a physical, mental, or emotional | No | 07/26/2015 | | condition, do you have difficulty [...] physical, mental, or emotional | No | 07/26/2015 | | condition, do you have serious [...] + + + +---------+ + + | acetaminophen | Take 500 mg by mouth | 100 | 0 | 04 | | | (TYLENOL) 325 mg | every 8 hours as | tablet | | 16 | | | tablet | needed for Pain. | | | | | + + [...] | | 0 | | | | (NORVASC) 2.5 mg | Daily. | | | | 8 | | tablet | | | | | | + + + +---------+ + + | aspirin 81 MG | Take 162 mg by mouth | 56 | 0 | 07/28/19 | | | tablet | Daily. | tablet | | 16 | 8 | + + + +---------+ + + [...] + + + +---------+ + + | clopidogrel | Take 1 tablet by | 100 | 0 | 07/28/19 | | | (PLAVIX) 75 mg | mouth Daily. | tablet | | 16 | 8 | | tablet | | [...] + +---------+ + + | | Take 1-2 tablets by | 50 | 0 | 07/28/19 | | | HYDROcodone-acetamin | mouth every 4 hours | tablet | | 16 | 7 | | ophen (NORCO) 5-325 | as needed for Pain. | | | | | | mg per tablet | | | | | | + + + +---------+ + + | isosorbide | Take 1 tablet by | 30 | 0 | 08/01/19 | | | mononitrate (IMDUR) | mouth Daily. | tablet | | 16 | 9 | | 30 mg ER tablet | | | | | | + + + +---------+ + + | levothyroxine | Take 175 mcg by | | 0 | | | | (SYNTHROID) 175 MCG | mouth every morning | | | | 0 | | tablet | (before breakfast). | | | | | + + + +---------+ + + | lisinopril | Take 1 tablet by | 30 | 0 | 07/28/19 | | | (PRINIVIL, ZESTRIL) | mouth Daily. | tablet | | 16 | 7 | | 10 mg tablet | | | | | | + + + +---------+ + + | LORazepam (ATIVAN) | Take 1 tablet by | 20 | 0 | 07/28/19 | | | 0.5 mg tablet | mouth nightly as | tablet | | 16 | 7 | | | needed for Insomnia. | | | | | + + + +---------+ + + | Magnesium 500 MG | Take 500 mg by mouth | | 0 | | | | tablet | Daily. | | | | 9 | + + + +---------+ + + | metFORMIN | 1 pill twice daily | 60 | 0 | 07/28/19 | | | (GLUCOPHAGE) 500 mg | starting on 07/29/2015 | tablet | | 16 | 8 | | tablet | | | | | | + + + +---------+ + + | metoprolol | Take 0.5 tablets by | 60 | 0 | 07/28/19 | | | tartrate (LOPRESSOR) | mouth 2 times daily. | tablet | | 16 | 7 | | 25 mg tablet | | | | | | + + + +---------+ + + | nitroglycerin | Place 1 tablet under | 25 | 0 | 07/28/19 | | | (NITROSTAT) 0.4 mg | the tongue every 5 | tablet | | 16 | 9 | | SL tablet | minutes as needed | | | | | | | for Chest pain. | | | | | + + + +---------+ + + | omeprazole | Take 20 mg by mouth | | 0 | | | | (PRILOSEC) 20 mg | 2 times daily. | | | | 7 | | capsule | | | | | | + + + +---------+ + + | polyethylene | Take 1 diluted | | 0 | 07/28/19 | | | glycol (MIRALAX) | packet by mouth | | | 16 | 7 | | packet | Daily as needed. | | | | | + + + +---------+ + + documented as of this encounter Plan of Treatment Not on filedocumented as of this encounter Procedures + +--------+ + + + | Procedure Name | Priori | Date/Time | Associated Diagnosis | Comments | | | ty | | | | + +--------+ + + + | CT HEAD WO CONTRAST | Routin | 10/01/2015 | | Results for this | | | e | 1:13 PM | | procedure are in the | | | | PDT | | results section. | + +--------+ + + + documented in this encounter Results CT Head wo Contrast (10/01/2015 1:13 PM PDT) + + | Specimen | + + | | + + + + + | Narrative | Performed At | + + + | This is a non-reportable procedure without a radiologist report and | | | is used for image storage only | | + + + + + | Procedure Note | + + | Steven Richards Flora - 12/08/2018 5:40 PM PDT This is a non-reportable procedure | | without a radiologist report and isused for image storage only | + + documented in this encounter Visit Diagnoses + + | Diagnosis | + + | Pain Generalized pain | + + documented in this encounter"
--- OUTSIDE RECORDS SUMMARY | ~2020-02-03 | XMS | Encounter Summary ---
Demographics + + + | Address | [address] | | | [place] [address] | + + + | Home Phone | | + + + | Preferred Language | Unknown | + + + | Marital Status | Single | + + + | Protestant Affiliation | 1013 | + + + | Race | White | + + + | Ethnic Group | Not or | + + + Author + + + | Author | [facility] | | | and [place] | + + + | Organization | [facility] | | | and [...] Team Providers + +------+ + | Care Cheesemaker Helper Name | Role | Phone | + +------+ + | Warren Harrington | PCP | | + +------+ + Reason for Visit + +--------+ + | Reason | Onset | Comments | | | Date | | + +--------+ + | Procedure | 01/17/ | | | | 2019 | | + +--------+ + Encounter Details +--------+ + + + + | Date | Type | Department | Care Team | Description | +--------+ + + + + | 01/17/ | Telephone | [facility] | Jose D Trujillo, | Procedure | | 2020 | | GASTROENTEROLOGY | RECORD TESTER [address] | | | | | [address] | [address] [place] | | | | | [address] [place], [place] | [place] [address] | | | | | [address] | [phone] | | | | | [phone] | | | +--------+ + + + [...] + + documented as of this encounter Miscellaneous Notes Telephone Encounter - Celestine Jeffery - 01/19/2020 10:08 AM PDTPatient called and wanted t o know the status on her message and informed her that if she wants to do her EGD and COLON locally in [place], or she would need to contact her PCP to send a request. Patient unders tands and will communicate with her pcp. elephone Encounter - Chelle Carrion CMA - 01/18/2020 3:24 PM PDTReturned call to Omar, advised him that since vinicius porter was seen in our office, her Egd/Colon would be performed by one of our GI Locum dockaye rs at our facility. If she wants procedure to be done in [place], her PCP would have to re angelique her to see someone over in [place]. They have decided to stay with our GI team.Electro nically signed by Chelle Pacheco CMA at 01/18/2020 3:56 PM PDTTelephone Encounter - Celestine Jeffery - 01/18/2020 2:29 PM PDTPatient's acute care nursing assistant, Omar called to see if cami forbes could do her EGD and colon procedure locally [facility] [place] Routing to clinical staff. Phone number: [phone] elephone Encounter - Celestine Jeffery - 01/18/2020 1:08 PM PDTName of Caller: Le Ralph Name of Patient: Le Lisandro Rollins Reason for call: Patient called and wanted to do her EGD and Colon procedure in [place], [place] and if our provider could fax order there. Patient was confused. Routing to clinical staff. Provider/Nurse: Jose D Trujillo Call back number: [phone] documented in this encou nter Plan of Treatment Not on filedocumented as of this encounter Visit Diagnoses Not on filedocumented in this encounter"
--- OUTSIDE RECORDS SUMMARY | ~2020-02-03 | XMS | Encounter Summary ---
Demographics + + + | Address | [address] | | | [place] [address] | + + + | Home Phone | | + + + | Preferred Language | Unknown | + + + | Marital Status | Single | + + + | Adventism Affiliation | 1013 | + + + | Race | White | + + + | Ethnic Group | Not or | + + + Author + + + | Author | [facility] | | | and [place] | + + + | Organization | [facility] | | | [...] Team Providers + +------+ + | Care Humanities Department Chair Name | Role | Phone | + +------+ + | Ole Madden DO | PCP | | + +------+ + Reason for Visit Evaluate & Treat (Routine) +--------+ + + + + + | Status | Reason | Specialty | Diagnoses / | Referred By | Referred To | | | | | Procedures | Contact | Contact | +--------+ + + + + + | Closed | Specialty | Sleep | Diagnoses | [place], | [facility] | | | Services | Medicine | NEHEMIAH | Marck Yo | [place] [address] | | | Required | | (obstructive | [address] | [place] | | | | | sleep | [place] | [place], | | | | | apnea) | [address] [place] | [place] [address] | | | | | Procedures | [facility], [place] | Phone: | | | | | [place] | [address] | [phone] | | | | | 6/>YRS SLEEP | Phone: | Fax: | | | | | 4/> ADDL | [phone] | [phone] | | | | | [facility] ATTND | Fax: | | | | | | NPSG | [phone] | | +--------+ + + + + + Encounter Details +--------+ + + + + | Date | Type | Department | Care Team | Description | +--------+ + + + + | 02/18/ | Hospital | [facility] | Marck Brar | Obstructive sleep | | 2015 | Encounter | [facility] | [address] | apnea (Primary Dx); | | | | CENTER [address] | [address] [place] | NEHEMIAH (obstructive | | | | [place], [place] | [place] [address] | sleep apnea) | | | | [address] | [phone] | | | | | [phone] | | | +--------+ + + + [...] at Time of Discharge + + + +---------+--------+ + | Medication | Sig | Dispensed | Refills | Start | End Date | | | | | | Date | | + + + +---------+--------+ + | cyanocobalamin | Take 1,000 mcg by | | 0 | | | | (VITAMIN B-12) 1000 | mouth Daily. | | | | | | MCG tablet | | | | | | + + + +---------+--------+ + | DULoxetine | Take 20 mg by mouth | | 0 | | | | (CYMBALTA) [address] | Daily. With 60 mg | | | | | | capsule | capsule for Total | | | | | | | dose of 80mg | | | | | + + + +---------+--------+ + | Multiple | Take 1 tablet by | | 0 | | | | Vitamins-Minerals | mouth Daily. | | | | | | (MULTIVITAMIN PO) | | | | | | + + + +---------+--------+ + | calcium | Take 1 tablet by | | 0 | | | | citrate-vitamin D | mouth 2 times daily. | | | | 8 | | (CALCIUM + D) 315 | | | | | | | mg-200 units per | | | | | | | tablet | | | | | | + + + +---------+--------+ + | diphenhydrAMINE | Take 25 mg by mouth | | 0 | | | | (BENADRYL) 25 mg | every 6 hours as | | | | 7 | | tablet | needed for Itching. | | | | | + + + +---------+--------+ + | EPINEPHrine | Inject 0.3 mg into | | 0 | | | | (EPIPEN) 0.3 mg/0.3 | the muscle as needed | | | | 8 | | mL injection | for Anaphylaxis. | | | | | + + + +---------+--------+ + | levothyroxine | Take 175 mcg by | | 0 | | | | (SYNTHROID) 175 MCG | mouth every morning | | | | 0 | | tablet | (before breakfast). | | | | | + + + +---------+--------+ + | | Take 1 tablet by | | 0 | | | | lisinopril-hydrochlo | mouth Daily. | | | | 6 | | rothiazide | | | | | | | (PRINZIDE,ZESTORETIC | | | | | | | ) 20-25 MG per | | | | | | | tablet | | | | | | + + + +---------+--------+ + | Magnesium 500 MG | Take 500 mg by mouth | | 0 | | | | tablet | Daily. | | | | 9 | + + + +---------+--------+ + documented as of this encounter Procedure Notes Marck Brar Jr., MD - 02/19/2015 3:29 PM PDTProcedure(s): [place] [address] POLYSOMNOGRAPHY 4 OR MOREPre-Procedure Diagnose(s): NEHEMIAH (obstructive sleep apnea)Post-Procedure Diagnose(s) : NEHEMIAH (obstructive sleep apnea) Debbie Zaidi [facility] [place] [address] Polysomnogram Report on Le Rajesh Rollins performed on 02/18/2015 Clinical Information: Le Rollins is a 69 y.o. female who underwent diagnostic noctu rnal polysomnography on 02/18/[address] Nolvia Madden because of possible Obstru ctive Sleep Apnea. Severe NEHEMIAH was found on split-night PSG done at [facility] in [place] on 11/17/2011 which demonstrated a pretreatment AHI of 93.5 and oxygen desaturatio n to 82%. She was treated with CPAP and also underwent gastric bypass surgery. She has lost about 80 pounds. The current study is done to determine if NEHEMIAH is still present. Technical Information: Please see technical data stored as Polysomnography under "Media" se ction in the [facility] EMR. Definitions (The AASM Manual for the Scoring of Sleep and Associated Events, Version 2.0; 2 012): Apnea: There is a drop in the peak signal excursion by 90% or greater of pre-event baselin e using an oronasal thermal sensor (diagnostic study), PAP device flow (titration study), or an alternative apnea sensor (diagnostic study); the duration of the 90% or greater drop in sensor signal is 10 seconds or longer. Obstructive Apnea: Event associated with continued or increased inspiratory effort throug hout the entire period of absent airflow. Central Apnea: Event associated with absent inspiratory effort throughout the entire tiffanie od of absent airflow. Mixed Apnea: Event associated with absent inspiratory effort in the initial portion of th e event followed by resumption of inspiratory effort during the second portion of the event. Hypopnea: Nasal pressure excursion drop by 30% or more from baseline, lasting at lease 10 seconds and 90% of the event's duration meets this amplitude criteria. This is associated wi th a 4% or greater desaturation from pre-baseline. Respiratory Event Related Arousal: A sequence of breaths lasting 10 seconds or longer maria t acterized by increasing respiratory effort or by flattening of the inspiratory portion of th e nasal pressure (diagnostic study) or PAP device flow (titration study) waveform leading to arousal from sleep when the sequence of breaths does not meet criteria for an apnea or hypo pnea. Sleep Architecture: Lights out was recorded at 2306 hundred hours on 02/18/2015 and lights on was recorded at 0822 hundred hours on 02/19/2015. The latency to sleep onset was normal at 9.5 minutes. The patient slept for 407.5 minutes out of 553.5 minutes of study time carla fraser a sleep efficiency that was low at 73.6 %. The amount of N1 sleep was normal occupyi ng 5.3% of the Total Sleep Time; the amount of N2 sleep was normal occupying 61.7% of the To dustin Sleep Time; the amount of N3 sleep was normal occupying 8.6% of the Total Sleep Time; th e amount of REM sleep was normal occupying 24.4% of the Total Sleep Time and the latency to REM sleep was short at 41 minutes. A short latency to REM sleep can be seen in a variety of clinical conditions including, but not limited to, narcolepsy, advanced sleep phase syndrome relative to lights out, depression, a night of recovery sleep after prior sleep deprivation , and after sudden withdrawal of REM suppressive agents. Sleep in the following positions was recorded: left lateral decubitus 29.7%, right lateral decubitus 42.1%, supine 28.2%, prone 0%. Sleep was mildly fragmented; the Arousal Index was 26.9. Cardiopulmonary Monitoring: The heart rate averaged in the high-50's beats per minute. Mild rate variability was noted. The rhythm was sinus. In the course of the evening there were 19 obstructive apneas, 3 mixed apneas, 6 central ap neas, 48 hypopneas, and 73 Respiratory Effort Related Arousals (RERA's). The Respiratory Dis turbance Index (RDI) was elevated at 21.9; the Apnea-Hypopnea Index was elevated at 11.2; th e Apnea Index (AI) was normal at 4.1. The respiratory events were not sleep stage dependent. The events were more frequent in NREM sleep. The respiratory events were very positional. T he events were more frequent in the supine position. The respiratory events occasioned significant sleep fragmentation; the Respiratory Arousal Index was 20.8. The karan oxygen saturation was 91% and the patient spent 0 minutes with an oxygen saturati on of less than 88%. ETCO2 was normal. Limb Movement Monitoring: There were 0 Periodic Limb Movements (PLMS Index of 0) of which 0 were associated with arousals; the PLMS Arousal Index was normal at 0. Interpretation: This polysomnogram is abnormal secondary to: Mild Obstructive Sleep Apnea is diagnosed and is associated with significant sleep fragment ation but it isn't associated with significant oxygen desaturation. The severity of NEHEMIAH has improved dramatically with weight loss. Suggestions: 1. The principles of sleep hygiene should be reviewed with the patient. 2. Treatment of mild Obstructive Sleep Apnea should be considered. Marck Brar Jr., MD, [facility] Ring Sorter Debbie Zaidi [facility] [place], [place] Clinical commercial real estate broker [facility], [place] docum ented in this encounter Plan of Treatment Not on filedocumented as of this encounter Procedures + +--------+ + + + | Procedure Name | Priori | Date/Time | Associated Diagnosis | Comments | | | ty | | | | + +--------+ + + + | DIAGNOSTIC REPORT - | | 02/18/2015 | | | | EXTERNAL SCAN | | 12:00 AM | | | | | | PDT | | | + +--------+ + + + documented in this encounter Visit Diagnoses + + | Diagnosis | + + | Obstructive sleep apnea - Primary Obstructive sleep apnea (adult) (pediatric) | + + | NEHEMIAH (obstructive sleep apnea) Obstructive sleep apnea (adult) (pediatric) | + + documented in this encounter
--- OUTSIDE RECORDS SUMMARY | ~2020-02-03 | XMS | Encounter Summary ---
Demographics + + + | Address | [address] | | | [place] [address] | + + + | Home Phone | | + + + | Preferred Language | Unknown | + + + | Marital Status | Single | + + + | Congregation Affiliation | 1013 | + + + | Race | White | + + + | Ethnic Group | Not or | + + + Author + + + | Author | [facility] | | | and [place] | + + + | Organization | [facility] | | | [...] Team Providers + +------+ + | Care Deputy Building Guard Name | Role | Phone | + +------+ + | Ole Madden DO | PCP | | + +------+ + Reason for Visit Auth/Cert +--------+--------+ + + + + | Status | Reason | Specialty | Diagnoses / | Referred By | Referred To | | | | | Procedures | Contact | Contact | +--------+--------+ + + + + | | | | Diagnoses | | | | | | | Localized | | | | | | | primary | | | | | | | osteoarthrit | | | | | | | is of right | | | | | | | lower leg | | | | | | | Localized | | | | | | | primary | | | | | | | osteoarthrit | | | | | | | is of right | | | | | | | lower leg | | | | | | | [M17.11] | | | | | | | Procedures | | | | | | | MN TOTAL | | | | | | | KNEE | | | | | | | ARTHROPLASTY | | | | | | | | | | | | | | ARTHROPLASTY | | | | | | | KNEE | | | +--------+--------+ + + + + Encounter Details +--------+ + + + + | Date | Type | Department | Care Team | Description | +--------+ + + + + | 07/15/ | [facility] | [facility] | Jordin Fernandez MD | Status post total | | 2016 - | Encounter | [facility] | [address] | right knee | | | | [address] | [place], [place] | replacement (Primary | | 07/18/ | | [place] [id number] | [id number] | Dx) | | 2016 | | [phone] | [phone] | | | | | | | | +--------+ + + + [...] + + documented as of this encounter Last Filed Vital Signs + + + + + | Vital Sign | Reading | Time Taken | Comments | + + + + + | Blood Pressure | 106/78 | 07/19/2015 7:35 AM | | | | | PDT | | + + + + + | Pulse | 70 | 07/19/2015 7:35 AM | | | | | PDT | | + + + + + | Temperature | 35.6 C (96.1 F) | 07/19/2015 7:35 AM | | | | | PDT | | + + + + + | Respiratory Rate | 18 | 07/19/2015 7:35 AM | | | | | PDT | | + + + + + | Oxygen Saturation | 98% | 07/19/2015 7:35 AM | | | | | PDT | | + + + + + | Inhaled Oxygen | - | - | | | Concentration | | | | + + + + + | Weight | 72.1 kg (159 lb) | 07/16/2015 3:03 PM | | | | | PDT | | + + + + + | Height | 165.1 cm (5' 5") | 07/16/2015 2:51 PM | | | | | PDT | | + + + + + | Body Mass Index | 26.46 | 07/16/2015 2:51 PM | | | | | PDT | | + + + + + documented in this encounter Discharge Summaries Jordin Fernandez MD - 07/19/2015 8:39 AM PDT TOTAL KNEE ARTHROPLASTY DISCHARGE SUMMARY ADMISSION DATE: 07/16/2015 DISCHARGE DATE: 07/20/2015 ADMITTING DIAGNOSIS: right knee osteoarthritis. DISCHARGE DIAGNOSIS: right knee osteoarthritis. MAJOR INTERVENTION: right total knee arthroplasty. CONDITION AT DISCHARGE: Satisfactory DISPOSITION: The patient is being discharged to home and will pursue home health P.T. ava wed by outpatient physical therapy 3 times per week for 6 weeks. Weightbearing status is as tolerated on the right lower limb. The incision will be kept clean and dry with OZZY tineo aterally to help with the edema. The patient will do home exercises as instructed by physica l therapy and take a regular diet.. Follow up in my office in 5-7 days. The patient will resume her usual medications and will be on aspirin 325 mg p.o. twice lalo y to complete a 2-week course of anticoagulation. Hydrocodone 7.5/325 has been prescribed fo r pain control. BRIEF HISTORY: The patient is a 70 y.o.old female who has had progressive pain in the right knee. The patient presented for a right total knee arthroplasty. For further details, reba salomon see the dictated history and physical examination in the chart. HOSPITAL COURSE: The patient was admitted and taken to the operating room at which time she underwent a right total knee arthroplasty without complications. For further details, reba salomon see the dictated operative report in the chart. Postoperatively, the patient did well, remaining afebrile and with stable vital signs. Asp irin 325 mg p.o. bid was started the morning after surgery. There was no evidence of thrombo embolic disease. Ancef was administered preoperatively and for 24 hours postoperatively. He matocrit stabilized at Lab Results Component Value Date HCT 35.4 07/18/2015 There was no need for a blood transfusion. The bandage was taken down on postoperative day number two showing a wound which was clean and dry without erythema or exudate. An Aquacel bandage was applied prior to discharge. The patient progressed well with physical therapy. The range of motion, transfers, and gait training gradually improved. The patient was ready for discharge to home on postop day num elena three. documented in this enc ounter Discharge Instructions Instructions Cassidy Lopez, PharmD - 07/17/2015 Discharge Instructions for Total Knee Replacement You have undergone knee replacement surgery. The knee joint formswhere the thighbone, arik nbone, and kneecap meet. The knee joint is supported by muscles and ligaments, and is lined with a cushioning called cartilage. Over time, cartilage wears away. This can make the knee feel stiff and painful. Your doctor replaced your painful joint with a knee prosthesis (perry ficial joint) to relieve pain and restore movement. Here are some instructions to follow onc e at home. Home Care You may bear as much weight as is comfortable unless you have been told otherwise. A waterproof (Aquacel) bandage has been applied to your incision. You may shower with th is in place. Do not remove this Aquacel bandage unless it gets wet underneath or is visibly soiled. Take pain medication as directed by your doctor. These are specified on the Discharge Me dication Reconciliation sheet. Typically, you will resume your routine medications and in ad dition will take aspirin 325mg twice daily for four weeks to prevent blood clots and a pain pill. Please purchase the 325 mg aspirin at your pharmacy, preferable enteric coated (EC). Do not take ani-inflammatories (NSAIDs) while on this high dose aspirin, it increases your risk of bleeding and stomach upset. This includes ibuprofen, motrin, aleve, naproxen, advi l and baby (81mg) aspirin. You may resume those as needed after you have finished the four weeks of high dose aspirin. Tylenol (acetaminophen) and your pain pill are safe to take. You should start physical therapy within the week. If you had a partial knee replacement , you should not need formal physical therapy. Le Rollins is s/p and discharged home today (07/19/2015) Taught AVS education to patient. Educated patient on new blood thinner and pain medications . I explained indication, how to take, possible side effects, when to contact physician, and monitor parameters. We discussed aspirin: S/S clotting (stroke/DVt/PE), bleeding (bruising, bleeding, GI/), a voidance of additional NSAIDs, and when to seek medical attention. The patient was encourage d to ambulate often and to participate in PT. We discussed not to exceed 4,000 mg of acetaminophen per day. Patient was advised not to co nsume alcohol while taking opioid mediations. We discussed normal bowel movements should be about 1 to 2 per week, if constipation should arise patient may try senna-s, milk of mag or Miralax OTC. The patient verbalized understanding of the above and all questions were answered. Abhishek shelby will follow-up with patient in one to two business days. Patient was provided with a celeste nciled discharge medication list as part of their AVS instructions. Encouraged patient to sh are medication list with healthcare providers and keep list current. Sitting and Sleeping Sit in chairs with arms. The arms make it easier for you to stand up or sit down. Nap if you are tired, but don t stay in bed all day. Moving Safely The smith to successful recovery is movement is walking and exercising your knee as direct ed by your doctor. Many short walks and exercised are better than one extended walk or exercise You should use a front wheel walker, crutches or a cane for a minimum of 4 weeks. Walk up and down stairs with support. Try one step at a time good knee up, bad knee do wn. Use the railing if possible. Don t drive until your doctor says it s okay. Most people with a right knee replacem ent can start driving about 6 weeks after surgery. Don t drive while you are taking narcot ic pain medication. Other Precautions No soaking your knee in water (no hot tubs, bathtubs, swimming pools) for a minimum of 3 weeks and your doctor says it s okay. Wear the support stockings you were given in the hospital, as instructed by your doctor. You may wear these stockings for 6 weeks after surgery. If needed, you can place a bandage over the incision to prevent irritation from clothing or support stockings. Arrange your household to keep the items you need handy. Keep everything else out of the way. Remove items that may cause you to fall, such as throw rugs and electrical cords. Use nonslip bath mats, grab bars, an elevated toilet seat, and a shower chair in your ba throom if needed. Follow-Up Make sure you keep your follow-up appointment with Dr. Fernandez scheduled about 10 days from your surgery date at the [facility]. Your shalini will be removed at this appointmen t. You may call to confirm this appointment: [phone] When to Seek Medical Attention Call 911 right awayif you have: Chest pain. Shortness of breath. Any pain or tenderness in your calf. Otherwise, call your doctor immediately if you have: Fever of 100.4Fhigher, or shaking chills. Stiffness, or inability to move the knee. Increased swelling in your leg. Increased redness, tenderness, or swelling in or around the knee incision. Drainage from the knee incision. Increased knee pain. documented in this encounter Medications at Time of Discharge [...] + + documented as of this encounter Progress Venecia Felipe RN - 07/19/2015 9:55 AM PDTPer pt. Request she wanted to be discharged by 0900. Then her son called and said he woould be here about 0930. I facilitated all therapies , and clinical pharmacist, for project red, and all was complete. Pt. Did not see OT per her request, she has done very well and needed to go when her son got here. Linda RONNA was awar e of this, and said that she could for go OT. Son is here and pt. Is taken out of [facility], [place]. Catrachita Birch PharmD - 07/19/2015 8:57 AM Jose Eduardo Rajesh Rollins is s/p tka and discharged home today (07/19/2015) Taught AVS education to patient. Educated patient on new blood thinner and pain medications . I explained indication, how to take, possible side effects, when to contact physician, and monitor parameters. We discussed aspirin: S/S clotting (stroke/DVt/PE), bleeding (bruising, bleeding, GI/), a voidance of additional NSAIDs, and when to seek medical attention. The patient was encourage d to ambulate often and to participate in PT. We discussed not to exceed 4,000 mg of acetaminophen per day. Patient was advised not to co nsume alcohol while taking opioid mediations. We discussed normal bowel movements should be about 1 to 2 per week, if constipation should arise patient may try senna-s, milk of mag or Miralax OTC. The patient verbalized understanding of the above and all questions were answered. Pharmaci will follow-up with patient in one to two business days. Patient was provided with a celeste nciled discharge medication list as part of their AVS instructions. Encouraged patient to sh are medication list with healthcare providers and keep list current. Cassidy Lopez RPH 07/19/2015 8:57 Linda Cavanaugh PA-C - 07/18/2015 7:23 AM PDTFormatting of this note might be different from the origi nal. Subjective: Post-Operative Day: 2 Days Post-Op Status Post Total Knee Arthroplasty Systemic or Specific Complaints:More pain today after the block has worn off. Objective: Temp: [35.7 C (96.3 F)-37.1 C (98.8 F)] 36.2 C (97.2 F) Pulse: [59-69] 69 Resp: [16-18] 16 BP: (119-137)/(59-64) 137/61 mmHg General: alert and no distress Wound: Dressing clean dry and intact Motion: Satisfactory ROM CMS: Neuro : intact. Circulation: warm, well perfused DVT Exam: No evidence of DVT seen on physical exam. Data Review Recent Results (from the past 24 hour(s)) Hemoglobin and Hematocrit Result Value Ref Range Hgb 11.9 11.5-16.0 g/dL Hct 35.4 34.0-47.0 % Assessment: Status Post Right Total Knee Arthroplasty. Plan: Continue current postoperative course Anemia protocol PT OT ASA for DVT prophylaxis Anticipate discharge tomorrow, home with home health vs. [place] Jordin Sims MD - 07/17/2015 8:59 AM PDT Subjective: Post-Operative Day: 1 Day Post-Op Status Post Right Total Knee Arthroplasty Systemic or Specific Complaints:No Complaints Objective: Temp: [35.9 C (96.6 F)-37.2 C (99 F)] 36.7 C (98.1 F) Pulse: [62-82] 65 Resp: [7-18] 16 BP: (84-160)/(35-70) 144/64 mmHg General: alert and no distress Wound: No Drainage Motion: Satisfactory ROM CMS: Neuro : intact. Circulation: warm, well perfused DVT Exam: No evidence of DVT seen on physical exam. Data Review Recent Results (from the past 24 hour(s)) POC Glucose Result Value Ref Range POC Glucose 122 70-150 mg/dL POC Glucose Result Value Ref Range POC Glucose 133 70-150 mg/dL Hemoglobin and Hematocrit Result Value Ref Range Hgb 11.1 (L) 11.5-16.0 g/dL Hct 32.7 (L) 34.0-47.0 % Extra Green Top Tube Result Value Ref Range Extra Green Top Tube Done Assessment: 1 Day Post-Op status post total knee arthroplasty. Expected very mild acute blood loss anemia. Plan: Continue current postoperative course Physical therapy for gait training Aspirin for DVT prophylaxis Radha Andrea RN - 5:30 PM PDTCPM off and polar care on right knee. Patient tolerated ADA diet. Electronically signed by: Radha Thomas RN 07/16/2015 20:03 documented in this encou nter H&P Notes Jordin Fernandez MD - 07/16/2015 11:46 AM PDTFormerly [facility] SURGICAL INTERIM HISTORY AND PHYSICAL UPDATE Pt. Name/Age/: Le Rollins 70 y.o. 1945 Date of admission: 07/16/2015 The current H&P was reviewed. The patient was reexamined. Re-evaluation of the patient co nfirms the necessity for the scheduled procedure. No change has occurred in the patient s condition since the H&P was completed less than 30 days ago. Electronically signed by: Jordin Fernandez, 07/16/2015 11:46 [facility] by Jordin Fernandez MD at 07/15 11:46 AM Linda Cavanaugh PA-C - 07/10/2015 9:05 AM PDTClinic Note Chief complaint: Right knee pain History of present illness: Mrs. Rollins is a 70-year-old woman who has had chronic and pro gressive, now disabling right knee pain. She had arthroscopy back in the early on the right knee and it has always bothered her to a certain extent. She has had chronic pain with stairs. The knee pain got significantly worse after she was knocked down by a dog on October. She feels the pain mostly anteriorly but also diffusely through the right knee. It w ill catch and give way. She denies a lot of swelling. The pain has been so bad that she has taken an occasional Tylenol #3. She has had cortisone injections with diminishing benefit. PMH: PCP is Dr. Lin. History of morbid obesity status post gastric bypass, hypertensio n, stroke, diabetes mellitus type 2 (which has been under good control without medications s cade the gastric bypass), peptic ulcer disease and otherwise as listed below. PSH: Sleep apnea surgery, cholecystectomy, hysterectomy, thyroid surgery and appendectomy Medications: Lisinopril/HCTZ, l-thyroxine, Cymbalta, Prilosec, Nitrostat and alprazolam Allergies: Abilify and clonidine Social history: Patient is . She does not use tobacco or alcohol. She is retired. Review of systems: Positive for visual changes, hearing loss, sinus troubles, hoarseness, d izziness, chest pain, irregular heartbeat, poor balance, depression, falls, anxiety Physical examination: Well-developed and well-nourished older woman in no acute distress. HEENT: Atraumatic, normocephalic and anicteric. Skin is warm and dry with vitiligo Chest: clear to auscultation Cor: regular pulse with murmur Orthopedic: Examination of the knees shows neutral alignment. Right knee shows no palpable effusion. Range of motion is from 5-125 of flexion with discomfort at both extremes. Ligam entous examination is stable. There is significant pain and crepitation with patellar grind. Quadriceps bulk and tone are fair. There is mild medial and lateral joint line tenderness. Oniel's maneuver is negative. Distal examination shows no cyanosis, clubbing or edema. There is a 2+ dorsalis pedis and p osterior tibial pulse. There is full strength of ankle extension and flexion. She states nor mal sensation to light touch on the dorsal and plantar surfaces of both feet. Radiographs: Plain films demonstrate mild femoral/tibial arthrosis but advanced patellofemo ral arthrosis bilaterally. MRI scan of the right knee shows some degenerative meniscal pathology, no evidence of ligam ent injury but advanced patellofemoral arthrosis and moderate femoral/tibial chondrosis. Echocardiogram 07/26/2014 at [facility] showed good LV function. There were some mild valvular ins ufficiencies, but nothing significant. EKG is pending here at the Clinic and bloodwork done in [place] in April has been reque sted. Impression and plan: 70-year-old female with advanced patellofemoral arthrosis of the right knee which has been progressive and is now disabling, despite conservative care. She has go tten to the point of desiring definitive intervention with right total knee arthroplasty. Janey salomon has attended the preoperative education class. We reviewed with her the nature of total kn ee arthroplasty surgery, the risks involved and expected recovery afterward. She gives BLOVES consent in writing. She desires to go to [facility] in [place] for initial postoperative rehabi litation. She has no history of thromboembolic disease and we will therefore treat her with aspirin for DVT prophylaxis. Past Medical History History of Data Hepatitis (K75.9) History of type 2 diabetes mellitus (Z86.39) Hypercholesterolemia (E78.0) History of Mammogram Osteoarthritis (M19.90) History of Reported Pap Smear Sleep apnea (G47.30) History of Thyroid Nodule Surgical History History of Abdominal Surgery History of Appendectomy History of Cholecystectomy History of Colonoscopy (Fiberoptic) History of Gastric Surgery For Morbid Obesity History of Left Breast Lumpectomy History of Thyroid Surgery Thyroid Lobectomy Left Lobe History of Thyroid Surgery Thyroid Lobectomy Right Lobe History of Total Abdominal Hysterectomy Family History Family History Family history of Adult Sleep Apnea Family history of Coronary Artery Disease Family history of Diabetes Mellitus Family history of Family Health Status Family history of Hyperlipidemia Family history of Hypertension Family history of Obesity Family history of Reported Prior Thyroid Disease Family history of Stroke Syndrome Current Meds Acetaminophen-Codeine #3 300-30 MG Oral Tablet; TAKE 1 TABLET EVERY 6 HOURS NEEDED FOR PAIN; Therapy: [id number] to (Evaluate:70Xwa9230); Last Rx:[id number] Ordered Benadryl 25 MG Oral Tablet; Therapy: (Recorded:20Jul2014) to Recorded Calcium + D TABS; Take 2 p.o. b.i.d; Therapy: (Recorded:87Gii0094) to Recorded Cyclobenzaprine HCl - 10 MG Oral Tablet; TAKE ONE-HALF TO ONE TABLET BY MOUTH AT BEDTIME NEEDED; Therapy: 89Msj3737 to (Evaluate:17Feb2015) Requested for: 75Rys4357; Last Rx:[id number] Ordered DULoxetine HCl - 30 MG Oral Capsule Delayed Release Particles (Cymbalta); TAKE 1 CAPSULE DAILY Requested for: 43Byt6963; Last Rx:[id number] Ordered EpiPen 0.3 MG/0.3ML (1:1000) ANSHU; INJECT 0.3ML INTRAMUSCULARLY DIRECTED; Therapy: 90Zno8970 to (Last Rx:[id number]) Ordered Levothyroxine Sodium 137 MCG Oral Tablet; TAKE ONE TABLET BY MOUTH EVERY DAY; Therapy: 30Apr2015 to (Last Rx:30Apr2015) Requested for: 30Apr2015 Ordered Lisinopril-Hydrochlorothiazide 20-25 MG Oral Tablet; TAKE 1 TABLET DAILY Requested for: 54Kzn1751; Last Rx:[id number] Ordered Magnesium 200 MG Oral Tablet; TAKE 1 TABLET DAILY DIRECTED; Therapy: (Recorded:75Igo5202) to Recorded Multi-Day Vitamins TABS; Take one daily; Therapy: (Recorded:00Hjw1383) to Recorded Silver Sulfadiazine 1 % External Cream; APPLY TO AFFECTED AREA TWICE DAILY DIRECTED; Therapy: 30Apr2015 to (Last Rx:30Apr2015) Requested for: 30Apr2015 Ordered Vitamin B-12 1000 MCG Oral Tablet; Therapy: (Recorded:20Jul2014) to Recorded Allergies Abilify TABS CloNIDine HCl TABS Actos TABS Qnzmulat-PNZ-4 PTWK HumaLOG SOLN Lantus SOLN bee sting shellfish Vitals Vitals Panel [Data Includes: Current Encounter] Recorded: 27Jun2015 03:13PM Heart Rate: 67 Blood Pressure: 134 / 69 Height: 5.5 in Weight: 162 lb BMI Calculated: 3765.25 BSA Calculated: 0.3 Signatures Electronically signed by : Jordin Fernandez MD; Jun 27 2015 3:56PM PST (Author) documented in this encounter Miscellaneous Notes Plan of Salma - Taisha Dias RN - 07/19/2015 12:24 PM PDTDischarge planning; [facility]. Patient will need a [place] licensed MD to follow HH. Dis cussed with Dr. Fernandez. He consulted with Dr. Thang Hernandez who agrees to cover. Dr. David weber discharge summary. Faxed with receipt of gagandeep. Negra at [facility] updated. Karmen Dias RNpayroll machine operator 1 2:36 PM PDTPlan of [place]ma - Venecia Escamilla RN - 07/19/2015 10:27 AM PDTProblem: Patient Care Overview (Adult) Goal: Care Team Goals & Evaluation PROBLEM-RELATED GOALS: 1. Patient is able to ambulate and pain is controlled <2 by 07/19/15.. 2. Call for assist appropriately and no fall by 07/19/15. 3. No sign and symptoms for infections by 07/19/15. STRATEGY TO ACHIEVE GOALS: 1. Offer patient for pain medication prior to activity. 2. Call light within reach. Bed and chair alarm prn. 3. Educate patient and family for sign and symptoms for infections. Assess for infections Q shift and prn. RESTRAINT-RELATED GOALS: STRATEGIES TO ACHIEVE RESTRAINT GOALS: Outcome: Adequate for Discharge Date Met: 07/19/15 Goal Evaluation: 1. Pt. Has done very well with ambulation and FWW, ready for DC. 2. Pt. Is fully aware of safety needs, here and at home. 3.Incision CDI, acquacell placed. lan of Care - Sariah Clarke, PT - 07/19/2015 8:57 AM PDTProblem: Patient Care Overview (Adult) Goal: Care Team Goals & Evaluation PROBLEM-RELATED GOALS: 1. Patient is able to ambulate and pain is controlled <2 by 07/19/15.. 2. Call for assist appropriately and no fall by 07/19/15. 3. No sign and symptoms for infections by 07/19/15. STRATEGY TO ACHIEVE GOALS: 1. Offer patient for pain medication prior to activity. 2. Call light within reach. Bed and chair alarm prn. 3. Educate patient and family for sign and symptoms for infections. Assess for infections Q shift and prn. RESTRAINT-RELATED GOALS: STRATEGIES TO ACHIEVE RESTRAINT GOALS: Physical Therapy Discharge Note Patient Information Patient Name: eL Rollins Date of : 1945 Age: 70 y.o. Precautions/Limitations: falls Left Upper Extremity Weight-Bearing: full weight-bearing Right Upper Extremity Weight-Bearing: full weight-bearing Left Lower Extremity Weight-Bearing: full weight-bearing Right Lower Extremity Weight-Bearing: weight-bearing as tolerated Start Time: 08 Stop time: 843 Time Calculation: 24 minutes Missed Treatment Time: minutes Total Treatment Time: 24 minutes TimedTreatment Code Minutes: 24 minutes Subjective: Pt eager to go home. Objective: Treatment Provided: Pt received supine in bed. Reviewed handout for HEP and performed full set of LYUDMILA protocal therex. Discussed PT related discharge questions. Pt left w/ nursing and pharmacist for discharge instructions. Education: therex, safety w/ mobility, PT related discharge issues Patient Status/Goals: Reflects last filed data of patient status; may be from multiple contributors. Gait Mildly antalgic to start, becoming more symmetrical w/ distance. Level of Tyler : modified independence Assistive Device: 2 wheeled walker (FWW) Distance (feet): 300 Gait Pattern Analysis: 2-point gait Gait Deviations: step length decreased Stairs Number of Stairs: 4 Handrail Location: both sides Level of Tyler: modified independence Assistive Device: none Technique Used: step to step (ascending), step to step (descending) Transfers Sit-Stand, Level of Tyler: modified independence Stand-Sit, Level of Tyler: modified independence Ram-Tzyax-Zwz, Assistive Device: 2 wheeled walker (FWW) Safety Issues: (.) Impairments: pain, strength decreased, ROM decreased Bed Mobility Assistive Device: none Supine to Sit, Level of Tyler: independent Sit to Supine, Level of Tyler: independent Safety Issues: (.) Impairments: strength decreased Therapeutic Exercise TKA exercises: TKA program, right Repetitions: 10 ROM R LE ROM: 0-105 Strength Pt with B UE and L LE strength WFL; can perform partial ankle pump on R and AAROM R heel sl sampson R LE Strength: 4/5 STG GOALS Tyler Level: independent Assistive Device: none Time to Achieve: 2 - 3 days Goal Status: met Transfer Training Goal, Activity Type: sit to stand/stand to sit Tyler Level: modified independence Assistive Device: 2 wheeled walker (FWW) Time to Achieve: 2 - 3 days Goal Status: met Gait Training Goal, Tyler Level: modified independence Assistive Device: 2 wheeled walker (FWW) Distance: 150 ft Time to Achieve: 2 - 3 days Goal Status: met Stairs Goal, Tyler Level: modified independence Assistive Device: none Number of Stairs: 4 Time to Achieve: 2 - 3 days Goal Status: new, met Range of Motion: 0-110 degrees R knee AROM Time to Achieve: 2 - 3 days Goal Status: met Assessment: Pt mobilizing at a level necessary for safe home discharge. No further acute PT services indicated at this time. Physical Therapy Anticipated Discharge Needs are: home w/ family support Post discharge physical therapy recommendation: Outpatient PT Plan for next treatment: Discontinue PT services Electronically signed by: Sariah Alonso PT, 07/19/2015 8:49 lan of Care - Jes Ramsey CNA - 07/19/2015 8:36 AM PDTIMM delivered to patient lan of [facility] - Alivia Aguilar RN - 2015 5:10 AM PDTProblem: Patient Care Overview (Adult) Goal: Care Team Goals & Evaluation PROBLEM-RELATED GOALS: 1. Patient is able to ambulate and pain is controlled <2 by 07/19/15.. 2. Call for assist appropriately and no fall by 07/19/15. 3. No sign and symptoms for infections by 07/19/15. STRATEGY TO ACHIEVE GOALS: 1. Offer patient for pain medication prior to activity. 2. Call light within reach. Bed and chair alarm prn. 3. Educate patient and family for sign and symptoms for infections. Assess for infections Q shift and prn. RESTRAINT-RELATED GOALS: STRATEGIES TO ACHIEVE RESTRAINT GOALS: Outcome: Improving Goal Evaluation: Pt ambulating independently in the room with FWW. Voiding clear, yellow urine. Pt c/o nathan n and got two [place] 10-325mg at 5am. She is eager to discharge home today. Shalini over inc ision intact, ABD pad has one red spot from previous shift. Ozzy hose on over the ABD pad. RLE warm, strength 5/5, pedal pulse +2, cap refill < 3 seconds. Pt up in chair watching TV prior to bedtime. lan of [facility] Jaimie San - 07/18/2015 12:15 PM PDTMet with Le this afternoon regarding discharge plans . Le feels that she will be okay going home. She will have help with her son and friends. Her son Anderson will transport her home when she is medically stable. Home health was declined. Electronically signed by: Jaimie Thompson 07/18/2015 12:17 lan of [facility] - Bel Alonso, PT - 07/18/2015 12:09 PM PDTProblem: Patient Care Overview (Adult) Goal: Care Team Goals & Evaluation PROBLEM-RELATED GOALS: 1. Patient is able to ambulate and pain is controlled <2 by 07/19/15.. 2. Call for assist appropriately and no fall by 07/19/15. 3. No sign and symptoms for infections by 07/19/15. STRATEGY TO ACHIEVE GOALS: 1. Offer patient for pain medication prior to activity. 2. Call light within reach. Bed and chair alarm prn. 3. Educate patient and family for sign and symptoms for infections. Assess for infections Q shift and prn. RESTRAINT-RELATED GOALS: STRATEGIES TO ACHIEVE RESTRAINT GOALS: Outcome: Improving Physical Therapy Daily Treatment Note Patient Information Patient Name: Le Rollins Date of : 1945 Age: 70 y.o. Precautions/Limitations: falls Left Upper Extremity Weight-Bearing: full weight-bearing Right Upper Extremity Weight-Bearing: full weight-bearing Left Lower Extremity Weight-Bearing: full weight-bearing Right Lower Extremity Weight-Bearing: weight-bearing as tolerated History of Presenting Problem: Mrs. Rollins is a 70-year-old woman who has had chronic and progressive, now disabling right knee pain. She had arthroscopy back in the early on t he right knee and it has always bothered her to a certain extent. She has had chronic pain w ith stairs. The knee pain got significantly worse after she was knocked down by a dog on Oct. Pt also reported catching and locking at times. Pt is now s/p R TKA. PT Diagnosis: decreased strength and ROM R LE, impaired functional mobility Start Time: 1110 Stop time: 1143 Time Calculation: 33 minutes Missed Treatment Time: minutes Total Treatment Time: 33 minutes TimedTreatment Code Minutes: 33 minutes Subjective: Pt reported increased pain R knee today, up to 09/02. Pt still not sure if she w ants discharge home or to [facility]. Pt having some concerns about being home alone. Objective: Treatment Provided: Pt participated in bed mobility, transfers and gait (see below for deta ils). Pt left seated in bed side chair w/ all needs w/in reach, awaiting lunch. Education: Safty w/ mobility Patient Status/Goals: Reflects last filed data of patient status; may be from multiple contributors. Gait Mildly antalgic to start, becoming more symmetrical w/ distance. Level of Tyler : modified independence Assistive Device: 2 wheeled walker (FWW) Distance (feet): 300 Gait Pattern Analysis: 2-point gait Gait Deviations: step length decreased Stairs Number of Stairs: 4 Handrail Location: both sides Level of Tyler: modified independence Assistive Device: none Technique Used: step to step (ascending), step to step (descending) Transfers Sit-Stand, Level of Tyler: modified independence Stand-Sit, Level of Tyler: modified independence [id number], Assistive Device: 2 wheeled walker (FWW) Safety Issues: (.) Impairments: pain, strength decreased, ROM decreased Bed Mobility Assistive Device: none Supine to Sit, Level of Tyler: independent Sit to Supine, Level of Tyler: independent Safety Issues: (.) Impairments: strength decreased ROM R LE ROM: 0-85 Strength Pt with B UE and L LE strength WFL; can perform partial ankle pump on R and AAROM R heel sl sampson STG GOALS Tyler Level: independent Assistive Device: none Time to Achieve: 2 - 3 days Goal Status: met Transfer Training Goal, Activity Type: sit to stand/stand to sit Tyler Level: modified independence Assistive Device: 2 wheeled walker (FWW) Time to Achieve: 2 - 3 days Goal Status: met Gait Training Goal, Tyler Level: modified independence Assistive Device: 2 wheeled walker (FWW) Distance: 150 ft Time to Achieve: 2 - 3 days Goal Status: met Stairs Goal, Tyler Level: modified independence Assistive Device: none Number of Stairs: 4 Time to Achieve: 2 - 3 days Goal Status: new, met Range of Motion: 0-110 degrees R knee AROM Time to Achieve: 2 - 3 days Goal Status: continued Assessment: Pt continues progressing toward functional goals w/ all goals met except ROM. P t did experience a bit of a set back to day w/ increase in pain thru the night resulting in increasingly antalgic gait this morning however this resolved w/in 3-50' of gait. She contin ues to experience limited ROM and mms d/t TKA and associated pain from resolution of nerve b lock. Pt will benefit from 1-2 additional PT session to ensure safety w/ mobility in order t o clear her for independence in room and gutierrez as well as work on her HEP. Physical Therapy Anticipated Discharge Needs are: Pt continues to require PT services, disposition TBD. Post discharge physical therapy recommendation: Ongoing therapy services either outpatient or HH. Plan for next treatment: LKC, 1P, FWW, review HEP, clear for independence in room and gutierrez Electronically signed by: Sariah Alonso, PT, 07/18/2015 11:57 lan of Care - Blanquita avendano, Venecia Kang RN - 07/18/2015 11:17 AM PDTProblem: Patient Care Overview (Adult) Goal: Care Team Goals & Evaluation PROBLEM-RELATED GOALS: 1. Patient is able to ambulate and pain is controlled <2 by 07/19/15.. 2. Call for assist appropriately and no fall by 07/19/15. 3. No sign and symptoms for infections by 07/19/15. STRATEGY TO ACHIEVE GOALS: 1. Offer patient for pain medication prior to activity. 2. Call light within reach. Bed and chair alarm prn. 3. Educate patient and family for sign and symptoms for infections. Assess for infections Q shift and prn. RESTRAINT-RELATED GOALS: STRATEGIES TO ACHIEVE RESTRAINT GOALS: Goal Evaluation: Pt. Is able to ambulate, she is slightly nervous to go home, but her S.O. Will be helping h er for awhile. She is very independent. Education post-op done and questions answered. Pain under control at this time. lan of [facility] - Alivia Ireland RN - 07/18/2015 5:38 AM PDTProblem: Patient Care Overview (Adult) Goal: Care Team Goals & Evaluation PROBLEM-RELATED GOALS: 1. Patient is able to ambulate and pain is controlled <2 by 07/19/15.. 2. Call for assist appropriately and no fall by 07/19/15. 3. No sign and symptoms for infections by 07/19/15. STRATEGY TO ACHIEVE GOALS: 1. Offer patient for pain medication prior to activity. 2. Call light within reach. Bed and chair alarm prn. 3. Educate patient and family for sign and symptoms for infections. Assess for infections Q shift and prn. RESTRAINT-RELATED GOALS: STRATEGIES TO ACHIEVE RESTRAINT GOALS: Outcome: Improving Goal Evaluation: Pt c/o pain in the right leg that was relieved by two [place] 5-325mg tablets. Pt requested PO Benadryl 25mg at HS for nasal congestion due to seasonal allergies, and was able to slee p well. She denied nausea, numbness and tingling. RLE warm, pedal pulse +2, cap refill < 3 seconds, leg strength 4/5, MAI wrap CDI. Polar care and SCD's in use. HRR with murmur, LS clear, BT active. Will apply CPM this morning. lan of [facility] - Ut Lula herring RN - 07/17/2015 4:57 PM PDTProblem: Patient Care Overview (Adult) Goal: Care Team Goals & Evaluation PROBLEM-RELATED GOALS: 1. Patient is able to ambulate and pain is controlled <2 by 07/19/15.. 2. Call for assist appropriately and no fall by 07/19/15. 3. No sign and symptoms for infections by 07/19/15. STRATEGY TO ACHIEVE GOALS: 1. Offer patient for pain medication prior to activity. 2. Call light within reach. Bed and chair alarm prn. 3. Educate patient and family for sign and symptoms for infections. Assess for infections Q shift and prn. RESTRAINT-RELATED GOALS: STRATEGIES TO ACHIEVE RESTRAINT GOALS: Outcome: Improving Goal Evaluation: Pain well controlled with PO pain meds. Calling for help appropriately. Not getting OOB by self. No falls. No s/s infection. lan of [facility] kiley Sariah Salome, PT - 07/17/2015 4:25 PM PDTProblem: Patient Care Overview (Adult) Goal: Care Team Goals & Evaluation PROBLEM-RELATED GOALS: 1. Patient is able to ambulate and pain is controlled <2 by 07/19/15.. 2. Call for assist appropriately and no fall by 07/19/15. 3. No sign and symptoms for infections by 07/19/15. STRATEGY TO ACHIEVE GOALS: 1. Offer patient for pain medication prior to activity. 2. Call light within reach. Bed and chair alarm prn. 3. Educate patient and family for sign and symptoms for infections. Assess for infections Q shift and prn. RESTRAINT-RELATED GOALS: STRATEGIES TO ACHIEVE RESTRAINT GOALS: Physical Therapy Daily Treatment Note Patient Information Patient Name: Le Rollins Date of : 1945 Age: 70 y.o. Precautions/Limitations: falls Left Upper Extremity Weight-Bearing: full weight-bearing Right Upper Extremity Weight-Bearing: full weight-bearing Left Lower Extremity Weight-Bearing: full weight-bearing Right Lower Extremity Weight-Bearing: weight-bearing as tolerated History of Presenting Problem: Mrs. Rollins is a 70-year-old woman who has had chronic and progressive, now disabling right knee pain. She had arthroscopy back in the early on t he right knee and it has always bothered her to a certain extent. She has had chronic pain w ith stairs. The knee pain got significantly worse after she was knocked down by a dog on Oct. Pt also reported catching and locking at times. Pt is now s/p R TKA. PT Diagnosis: decreased strength and ROM R LE, impaired functional mobility Start Time: 1525 Stop time: 1605 Time Calculation: 40 minutes Missed Treatment Time: minutes Total Treatment Time: 40 minutes TimedTreatment Code Minutes: 40 minutes Subjective: Pt agreeable to PT Objective: Treatment Provided: Pt received supine in bed. Participated in bed mobility, transfers, gai t and stairs (see below for details). Pt returned to supine position and left w/ all needs w /in reach. Education: Safety w/ mobility Patient Status/Goals: Reflects last filed data of patient status; may be from multiple contributors. Gait symmetrical step length, continuous gait pattern Level of Tyler : supervision required, verbal cues required Assistive Device: 2 wheeled walker (FWW) Distance (feet): 300 Gait Pattern Analysis: 2-point gait Gait Deviations: step length decreased Stairs Number of Stairs: 4 Handrail Location: both sides Level of Tyler: modified independence Assistive Device: none Technique Used: step to step (ascending), step to step (descending) Transfers Sit-Stand, Level of Tyler: supervision required Stand-Sit, Level of Tyler: modified independence [id number], Assistive Device: 2 wheeled walker (FWW) Safety Issues: (.) Impairments: pain, strength decreased Bed Mobility Assistive Device: none Supine to Sit, Level of Tyler: independent Sit to Supine, Level of Tyler: independent Safety Issues: (.) Impairments: strength decreased ROM R LE ROM: 0-90 Strength Pt with B UE and L LE strength WFL; can perform partial ankle pump on R and AAROM R heel sl sampson STG GOALS Tyler Level: independent Assistive Device: none Time to Achieve: 2 - 3 days Goal Status: met Transfer Training Goal, Activity Type: sit to stand/stand to sit Tyler Level: modified independence Assistive Device: 2 wheeled walker (FWW) Time to Achieve: 2 - 3 days Goal Status: progressing toward goal Gait Training Goal, Tyler Level: modified independence Assistive Device: 2 wheeled walker (FWW) Distance: 150 ft Time to Achieve: 2 - 3 days Goal Status: progressing toward goal Stairs Goal, Tyler Level: modified independence Assistive Device: none Number of Stairs: 4 Time to Achieve: 2 - 3 days Goal Status: new, met Range of Motion: 0-110 degrees R knee AROM Time to Achieve: 2 - 3 days Goal Status: continued Assessment: Continued progress toward functional goals. Pt performed bed mob, transfers, ga it and stairs w/o physical assistance, only min verbal cuing for sequencing. Pt demonstrated improved tolerance for distance w/ gait however her gait pattern did suffer w/ distance d/t pain and fatigue. Pt will benefit from ongoing PT services to promote improved functional i ndependence w/ activities necessary for safe home discharge. Physical Therapy Anticipated Discharge Needs are: Pt continues to require PT services, disposition TBD. Post discharge physical therapy recommendation: Ongoing low>high intensity therapy service s Plan for next treatment: LKC, 1P, FWW, progressive functional safety and independence Electronically signed by: Sariah Alonso, PT, 07/17/2015 16:20 lan of Care - Garima Cade OT - 07/17/2015 1:45 PM PDTFormatting of this note might be different from t ant original. Problem: Patient Care Overview (Adult) Goal: Care Team Goals & Evaluation PROBLEM-RELATED GOALS: 1. Patient is able to ambulate and pain is controlled <2 by 07/19/15.. 2. Call for assist appropriately and no fall by 07/19/15. 3. No sign and symptoms for infections by 07/19/15. STRATEGY TO ACHIEVE GOALS: 1. Offer patient for pain medication prior to activity. 2. Call light within reach. Bed and chair alarm prn. 3. Educate patient and family for sign and symptoms for infections. Assess for infections Q shift and prn. RESTRAINT-RELATED GOALS: STRATEGIES TO ACHIEVE RESTRAINT GOALS: Occupational Therapy Acute Initial Evaluation Note Patient Information Patient Name: Le Rollins Date of : 1945 Age: 70 y.o. History No diagnosis found. Date of Onset: 07/16/15 Past Medical History Diagnosis Date Numbness and tingling in right hand 02/08/2012 DDD (degenerative disc disease), cervical 02/08/2012 NEHEMIAH (obstructive sleep apnea) Obesity Hypertension Diabetes type 2, controlled (HCC) Off all medications since surgery Asthma Stroke (HCC) Asymptomatic - noted on CT scan in distant past Murmur, cardiac Past Surgical History Procedure Laterality Date Tonsillectomy and adenoidectomy 1950 Appendectomy 1958 Hysterectomy, total abdominal 1973 Cholecystectomy 1988 Right knee arthroscopy 1989 Uvulopalatopharygoplasty 1988 Thyroidectomy, partial 1985 Thyroidectomy 2005 Gastric bypass surgery 2012 Total knee arthroplasty Right 07/16/2015 Procedure: Right Total Knee Arthroplasty; Surgeon: Jordin Fernandez MD; Location: [facility] A[facility] OR Allergies Allergen Reactions Aripiprazole Bee Venom Clonidine Derivatives Insulin Glargine Insulin Lispro (Human) Pioglitazone Hydrochloride Shellfish-Derived Products Statins Precautions/Limitations: falls Left Upper Extremity Weight-Bearing: full weight-bearing Right Upper Extremity Weight-Bearing: full weight-bearing Left Lower Extremity Weight-Bearing: full weight-bearing Right Lower Extremity Weight-Bearing: weight-bearing as tolerated Evaluation SUBJECTIVE: History of Presenting Problem: Le Rollins is a 70 y.o. who presents to [facility] with chronic, progressive, and now disabling right knee pain. She had arthroscopy ayesha k in the early on the right knee and it has always bothered her to a certain extent. S he has had chronic pain with stairs. The knee pain got significantly worse after she was kno cked down by a dog on October 28, 2014. Pt also reported catching and locking at times. Pt is no w s/p R TKA. Patient is right handed. OT Diagnosis: OT eval and treat post-op TKA on (R). Previous Level of Function: Ambulation: 0-->independent Transferrin-->independent Toiletin-->independent Bathin-->independent Dressin-->independent Eatin-->independent Communication: 0-->understands/communicates without difficulty Swallowin-->swallows foods/liquids without difficulty Prior Functional Level Comment: Pt. lives alone, has pets and was (I) with all ADLs and tra nsfers. She did not use an A/D for ambulation. Role/Relationships: Provides Primary Care For: pet(s) Living Environment/Accessibility: Lives With: alone Living Arrangements: house Home Accessibility: tub/shower is not walk in Number of Stairs to Enter Home: 1 Number of Stairs Within Home: 0 Financial Concerns: none Transportation Available: car, family or friend will provide Living Environment Comment: has a tub/shower combo, and will be getting a grab bar by sridhar howard, has a tub transfer bench, and getting a hand held shower head intalled. Has access to a [facility] Patient s Goals: "I plan to get home by Wednesday" OT Visit Summary: Pt. was able to get OOB on (L) side with no (A) to move her leg to EOB. She was able to stand up and walk to bathroom and use over toilet commode with mod(I). Pt. then stood at sink and washed up what she could. Sat on stool and dressed herself with set -up help. Pt. has a large mai wrap on her leg still but was able to get sweat pants over that with no difficulty. Pt. walked back to chair, that was by window and sat down to compl ete her make-up. IV was saline locked. Pt. has no concerns with going home since she plans to go to SNF first. Occupational Therapy will follow Leyamil Rollins evaluation and 1 time treat. Occupational Therapy Anticipated Discharge Needs: Ongoing occupational therapy required. DC disposition TBD. Post discharge occupational therapy recommendation: no further OT Equipment Recommendations: 2 wheeled walker (FWW), shower chair, media account executive Identified Problems Needing Skilled Intervention: OT eval and treat post-op TKA on (R)., gait, locomotion, and balance Planned Interventions:Planned Therapy Interventions: eval. And ADL session. Patient Status/Goals Reflects last filed data of patient status; may be from multiple contributors. ADLs Bathing, Level of Tyler: set up required, supervision required, contact guard assist Assistive Device: none Bathing Assess/Train, Position: sitting Bathing Assess/Train, Impairments: pain UB Dressing, Level of Tyler: set up required Assistive Device: none UB Dressing Assess/Train, Position: sitting LB, Level of Tyler: set up required, verbal cues required Assistive Device: none LB Dressing Assess/Train, Position: sitting Toileting, Level of Tyler: modified independence Assistive Device: bariatric bedside commode Toileting Assess/Train, Position: sitting Grooming, Level of Tyler: set up required Assistive Device: none Grooming Assess/Train, Position: standing Cognitive Tests Transfers Toilet, Level of Tyler: contact guard assist Toilet, Assistive Device: 2 wheeled walker (FWW) Demonstrates need for referral to other service: Assessment: Occupational therapy orders received and acknowledged. Objective impairments i nclude generalized post-op debility from anesthesia affects. These impairments are causing f unctional limitations with patient s inability to return home alone and be able to cook, c lean and drive. Due to Pt's discharge plan of SNF, no further acute OT services are needed. . Prognosis: good, to achieve stated therapy goals Patient and/or family has indicated understanding of treatment needs and actively participa ozzy in the creation of this plan for care. Today's Treatment Start Time: 0830 Stop time: 15 Time Calculation: 45 minutes Missed Treatment Time: minutes Total Treatment Time: 45 minutes TimedTreatment Code Minutes: 35 minutes Objective: Education: use of media account executive Treatment Provided: Eval. And ADLs completed with transfers as well. Assessment: Pt. Tolerated session well. No increase in pain and no difficulty getting her street clothes on. Plan for next treatment: no further OT. Electronically signed by: Garima Coleman OT, 07/17/2015 13:39 lan of Care - Jes Pickard CNA - 07/17/2015 11:54 AM PDTThis Screw Machine Setter spoke with the patient along with Java Development Manager Jaimie about dc planning. Patient would like to rehab at [facility] in [facility]. SNF Orders faxed to [facility] in [facility]# [id number] signed by Clemente Woo CNA at 07/17/2015 1:14 PM PDTPlan of Care - Sariah Alonso, PT - 07/17/2015 1 1:36 AM PDTProblem: Patient Care Overview (Adult) Goal: Care Team Goals & Evaluation PROBLEM-RELATED GOALS: 1. Patient is able to ambulate and pain is controlled <2 by 07/19/15.. 2. Call for assist appropriately and no fall by 07/19/15. 3. No sign and symptoms for infections by 07/19/15. STRATEGY TO ACHIEVE GOALS: 1. Offer patient for pain medication prior to activity. 2. Call light within reach. Bed and chair alarm prn. 3. Educate patient and family for sign and symptoms for infections. Assess for infections Q shift and prn. RESTRAINT-RELATED GOALS: STRATEGIES TO ACHIEVE RESTRAINT GOALS: Physical Therapy Daily Treatment Note Patient Information Patient Name: Le Rollins Date of : 1945 Age: 70 y.o. Left Upper Extremity Weight-Bearing: full weight-bearing Right Upper Extremity Weight-Bearing: full weight-bearing Left Lower Extremity Weight-Bearing: full weight-bearing Right Lower Extremity Weight-Bearing: weight-bearing as tolerated History of Presenting Problem: Mrs. Rollins is a 70-year-old woman who has had chronic and progressive, now disabling right knee pain. She had arthroscopy back in the early on t he right knee and it has always bothered her to a certain extent. She has had chronic pain w ith stairs. The knee pain got significantly worse after she was knocked down by a dog on Oct. Pt also reported catching and locking at times. Pt is now s/p R TKA. PT Diagnosis: decreased strength and ROM R LE, impaired functional mobility Start Time: 1035 Stop time: 1115 Time Calculation: 40 minutes Missed Treatment Time: minutes Total Treatment Time: 40 minutes TimedTreatment Code Minutes: 40 minutes Subjective: Pt agreeable to PT. Stated she is expecting to go to [facility] following discharge from acute care. Objective: Treatment Provided: Pt received supine in bed, dressed in own clothing following OT session . Education: Safety w/ mobility, gait pattern Patient Status/Goals: Reflects last filed data of patient status; may be from multiple contributors. Gait symmetrical step length, continuous gait pattern Level of Tyler : contact guard assist Assistive Device: 2 wheeled walker (FWW) Distance (feet): 100 Gait Pattern Analysis: 2-point gait Gait Deviations: (.) Stairs TBA Transfers Sit-Stand, Level of Tyler: supervision required, verbal cues required Stand-Sit, Level of Tyler: modified independence Pne-Qpyzz-Oph, Assistive Device: 2 wheeled walker (FWW) Safety Issues: (.) Impairments: pain, strength decreased Bed Mobility Assistive Device: none Supine to Sit, Level of Tyler: independent Sit to Supine, Level of Tyler: independent Safety Issues: (.) Impairments: strength decreased ROM R LE ROM: 0-90 Strength Pt with B UE and L LE strength WFL; can perform partial ankle pump on R and AAROM R heel sl sampson STG GOALS Tyler Level: independent Assistive Device: none Time to Achieve: 2 - 3 days Goal Status: met Transfer Training Goal, Activity Type: sit to stand/stand to sit Tyler Level: modified independence Assistive Device: 2 wheeled walker (FWW) Time to Achieve: 2 - 3 days Goal Status: progressing toward goal Gait Training Goal, Tyler Level: modified independence Assistive Device: 2 wheeled walker (FWW) Distance: 150 ft Time to Achieve: 2 - 3 days Goal Status: progressing toward goal Range of Motion: 0-110 degrees R knee AROM Time to Achieve: 2 - 3 days Goal Status: continued, met, revised Assessment: Pt making excellent progress toward functional goals w/ pt able to mobilize in/ out of bed independently. She was able to complete transfers and gait w/ FWW w/o physical as sistance, slight CGA and cuing for sequincing. She is able to successfully utilize the FWW to provide adequate support w/ improved gait speed, continuous step thru pattern. She will b enefit from ongoing therapy services to promote improved functional independence w/ activiti es necessary for safe home discharge as she lives alone. Physical Therapy Anticipated Discharge Needs are: Pt continues to require PT services, disposition TBD. Plan for next treatment: 1P, FWW, progressive activity mitchell and functional independence Electronically signed by: Sariah Alonso, PT, 07/17/2015 11:25 lan of Michael Moser RRT - 07/17/2015 4:36 AM PDTProblem: Patient Care Overview (Adult) Goal: Care Team Goals & Evaluation PROBLEM-RELATED GOALS: 1. Patient is able to ambulate and pain is controlled <2 by 07/19/15.. 2. Call for assist appropriately and no fall by 07/19/15. 3. No sign and symptoms for infections by 07/19/15. STRATEGY TO ACHIEVE GOALS: 1. Offer patient for pain medication prior to activity. 2. Call light within reach. Bed and chair alarm prn. 3. Educate patient and family for sign and symptoms for infections. Assess for infections Q shift and prn. RESTRAINT-RELATED GOALS: STRATEGIES TO ACHIEVE RESTRAINT GOALS: Outcome: Unchanged The patient has a SpO2: 95 % on room air and is clear throughout. She was unable to do her IS. Her Predicted Level (mL) : 2100. She did not require additional respiratory care throughout the night. lan of Alivia Webb RN - 07/17/2015 3:36 AM PDTProblem: Patient Care Overview (Adult) Goal: Care Team Goals & Evaluation PROBLEM-RELATED GOALS: 1. Patient is able to ambulate and pain is controlled <2 by 07/19/15.. 2. Call for assist appropriately and no fall by 07/19/15. 3. No sign and symptoms for infections by 07/19/15. STRATEGY TO ACHIEVE GOALS: 1. Offer patient for pain medication prior to activity. 2. Call light within reach. Bed and chair alarm prn. 3. Educate patient and family for sign and symptoms for infections. Assess for infections Q shift and prn. RESTRAINT-RELATED GOALS: STRATEGIES TO ACHIEVE RESTRAINT GOALS: Outcome: Improving Goal Evaluation: Pt c/o pain 5-7/10 in the right foot and posterior right knee. Relieved by two [place] 5-32 5mg. MAI wrap CDI, Polar Care and SCD's in use. RLE warm, pedal pulse +2, cap refill < 3 s econds, some numbness in the right knee, sensation intact in the rest of the leg, leg streng th 07/29. HRR with murmur, LS clear, BT active. lan of [facility] Michael corea RESEARCH AND DEVELOPMENT RESEARCHER - 07/17/2015 2:24 AM PDTProblem: Patient Care Overview (Adult) Goal: Care Team Goals & Evaluation PROBLEM-RELATED GOALS: 1. Patient is able to ambulate and pain is controlled <2 by 07/19/15.. 2. Call for assist appropriately and no fall by 07/19/15. 3. No sign and symptoms for infections by 07/19/15. STRATEGY TO ACHIEVE GOALS: 1. Offer patient for pain medication prior to activity. 2. Call light within reach. Bed and chair alarm prn. 3. Educate patient and family for sign and symptoms for infections. Assess for infections Q shift and prn. RESTRAINT-RELATED GOALS: STRATEGIES TO ACHIEVE RESTRAINT GOALS: Outcome: Unchanged The patient has a SpO2: 93 % on 1 liters/minute nasal cannula and is clear throughout. Patient had no complaints with their respiratory effort. She was unable to do her IS. Her Predicted Level (mL) : 2100. She has known NEHEMIAH but does not wear a CPAP or oxygen at night. She did not require additional respiratory care throughout the night. lan of [facility] Radha Glasgow RN - 07/16/2015 8:01 PM PDTProblem: Patient Care Overview (Adult) Goal: Care Team Goals & Evaluation PROBLEM-RELATED GOALS: 1. Patient is able to ambulate and pain is controlled <2 by 07/19/15.. 2. Call for assist appropriately and no fall by 07/19/15. 3. No sign and symptoms for infections by 07/19/15. STRATEGY TO ACHIEVE GOALS: 1. Offer patient for pain medication prior to activity. 2. Call light within reach. Bed and chair alarm prn. 3. Educate patient and family for sign and symptoms for infections. Assess for infections Q shift and prn. RESTRAINT-RELATED GOALS: STRATEGIES TO ACHIEVE RESTRAINT GOALS: Outcome: Unchanged Goal Evaluation: 1. Patient still has block and tingle on right leg. 2. Call light within reach. Bed alarm on for safety. 3. Explained patient for sign and symptoms for infections. lan of Care - Wilma Ocampo, PT - 07/16/2015 5:10 PM PDT Problem: Patient Care Overview (Adult) Goal: Care Team Goals & Evaluation PROBLEM-RELATED GOALS: STRATEGY TO ACHIEVE GOALS: RESTRAINT-RELATED GOALS: STRATEGIES TO ACHIEVE RESTRAINT GOALS: Physical Therapy Acute Initial Evaluation Note Patient Information Patient Name: Le Rollins Date of : 1945 Age: 70 y.o. History No diagnosis found. Date of Onset: 07/16/15 Past Medical History Diagnosis Date Numbness and tingling in right hand 02/08/2012 DDD (degenerative disc disease), cervical 02/08/2012 NEHEMIAH (obstructive sleep apnea) Obesity Hypertension Diabetes type 2, controlled (HCC) Off all medications since surgery Asthma Stroke (HCC) Asymptomatic - noted on CT scan in distant past Murmur, cardiac Past Surgical History Procedure Laterality Date Tonsillectomy and adenoidectomy 1950 Appendectomy 1958 Hysterectomy, total abdominal 1973 Cholecystectomy 1988 Right knee arthroscopy 1989 Uvulopalatopharygoplasty 1988 Thyroidectomy, partial 1985 Thyroidectomy 2005 Gastric bypass surgery 2011 Allergies Allergen Reactions Aripiprazole Bee Venom Clonidine Derivatives Insulin Glargine Insulin Lispro (Human) Pioglitazone Hydrochloride Shellfish-Derived Products Statins Left Upper Extremity Weight-Bearing: full weight-bearing Right Upper Extremity Weight-Bearing: full weight-bearing Left Lower Extremity Weight-Bearing: full weight-bearing Right Lower Extremity Weight-Bearing: weight-bearing as tolerated EVALUATION: SUBJECTIVE: History of Presenting Problem: Le Rollins is a 70 y.o. woman who has had chronic and progressive, now disabling right knee pain. She had arthroscopy back in the [place] on the right knee and it has always bothered her to a certain extent. She has had c hronic pain with stairs. The knee pain got significantly worse after she was knocked down by a dog on October 28, 2014. Pt also reported catching and locking at times. Pt is now s/p R TKA. Pt presents in bed; agreeable to PT. PT Diagnosis: decreased strength and ROM R LE, impaired functional mobility Impairments Found: gait, locomotion, and balance, ROM, muscle performance Previous Level of Function: Ambulation: 0-->independent Transferrin-->independent Toiletin-->independent Bathin-->independent Dressin-->independent Eatin-->independent Communication: 0-->understands/communicates without difficulty Swallowin-->swallows foods/liquids without difficulty Living Environment/Accessibility: Lives With: alone Living Arrangements: house Number of Stairs to Enter Home: 0 Number of Stairs Within Home: 0 Patient s Goals: Pt wants to be able to walk better with less pain and able to keep up wi th her grandkids OBJECTIVE : Patient Status/Goals: Reflects last filed data of patient status; may be from multiple contributors. Gait Level of Tyler : contact guard assist, 2 person assist required Assistive Device: 2 wheeled walker (FWW) Distance (feet): 3 ft f & b Gait Pattern Analysis: 3-point gait Gait Deviations: step length decreased, weight-shifting ability decreased, uxf-la-rmkvr rosemary arance decreased, mrpmw-qn-aryyrw ratio decreased, double stance time increased Stairs NT Transfers Sit-Stand, Level of Tyler: contact guard assist, 2 person assist required, verbal cu es required Stand-Sit, Level of Tyler: contact guard assist, verbal cues required [id number]-[id number]-Jvi, Assistive Device: 2 wheeled walker (FWW) Safety Issues: step length decreased, weight-shifting ability decreased Impairments: ROM decreased, strength decreased, impaired balance Bed Mobility Supine to Sit, Level of Tyler: minimum assist (75% patient effort), verbal cues requ ired Sit to Supine, Level of Tyler: verbal cues required, minimum assist (75% patient eff ort) Safety Issues: decreased use of legs for bridging/pushing Impairments: impaired balance, strength decreased, ROM decreased ROM R LE ROM: 0-82 degrees R knee Strength Pt with B UE and L LE strength WFL; can perform partial ankle pump on R and AAROM R heel sl sampson STG GOALS Tyler Level: independent Assistive Device: none Time to Achieve: 2 - 3 days Goal Status: new Transfer Training Goal, Activity Type: sit to stand/stand to sit Tyler Level: modified independence Assistive Device: 2 wheeled walker (FWW) Time to Achieve: 2 - 3 days Goal Status: new Gait Training Goal, Tyler Level: modified independence Assistive Device: 2 wheeled walker (FWW) Distance: 150 ft Time to Achieve: 2 - 3 days Goal Status: new Range of Motion: 0-90 degrees R knee AROM Time to Achieve: 2 - 3 days Goal Status: new Assessment: Physical therapy orders received and acknowledged. Objective impairments inclu de decreased ROM and control in R LE. These impairments are causing functional limitations w ith patient s inability to independently perform bed mobility, transfers, and gait. Comple xities contributing to the need for skilled therapy include prior CVA and DM II. Rehabilitation potential: Patient demonstrates good potential to achieve established goals and good potential to achieve prior status to address the documented impairments by partici pating in skilled physical therapy services. PLAN: bed mobility training, transfer training, gait training, strengthening, ROM (Range of Motio n) Physical Therapy will follow Leyamil Rollins 2 times/day until discharge from therapy or discharged from the hospital. Anticipated days that therapy will be provided: 2-3 days Physical Therapy Anticipated Discharge Needs: Ongoing PT services required. DC disposition TBD. Post discharge physical therapy recommendation: ongoing low intensity therapy (Short term rehab at [facility] (pt wants to go to [place] in [place], [place])) Equipment Recommendations: 2 wheeled walker (FWW) (pt has a SPC that she uses occasionally ; also has her mom's 4WW and a friend is also loaning her a FWW (son is going to bring deniseane r FWW in to be adjusted)) Patient and/or family has indicated understanding of treatment needs and actively participa ozzy in the creation of this plan for care. Today's Treatment Start Time: 1450 Stop time: 1520 Time Calculation: 30 minutes Missed Treatment Time: minutes Total Treatment Time: 30 minutes TimedTreatment Code Minutes: 10 minutes Objective: Treatment Provided: PT eval completed. CPM applied to R knee at 0-45 degrees. Patient instr ucted on purpose and function of CPM as well as on/off switch. Ongoing management of CPM frieda l be completed by nursing. Education: Pt also provided with ed re: PT POC, safety, and fall prevention. Assessment: Pt is groggy but participated well with mobility. Still with some residual effe cts from nerve blocks but able to take 3 steps forward and back with FWW without actual alejandro ling, although R knee is visibly unsteady. Tolerated CPM well. Recommend that pt will benefi t from further skilled PT interventions in order to increase strength and ROM around R knee and facilitate eventual safe return to home environment and PLOF. Recommend that pt will lik bibi need short term rehab at SNF as she lives alone with her service dog. Plan for next treatment: 1-2P (depending on whether nerve blocks have fully worn offf or n ot); KH:func. mobility, ROM Electronically signed by: Wilma Jay, PT, 07/16/2015 17:04 p Note - Jordin Fernandez MD - 07/16/2015 1:37 PM PDTTotal Knee Arthroplasty Operative Report Indications: Le Rollins has severe osteoarthritis of the right knee with symptoms li miting function. After failing reasonable conservative measures, Le Rollins elects to proceed with surgical treatment with a right total knee arthroplasty. Risk, alternatives a nd benefits were discussed in detail. Consent was obtained in the clinic. Pre-operative Diagnosis: Right knee osteoarthritis Post-operative Diagnosis: Right knee osteoarthritis Procedure: Right total knee arthroplasty Anesthesia: Regional blocks plus General LMA anesthesia Surgeon: Jordin Fernandez MD Garage Laborer: RONNA Campbell. Note the airline pilot/first officer was necessary in performing th is procedure. Findings: Patellofemoral compartment: advanced bone on bone arthrosis. Medial compartment: mild chondrosis. Lateral compartment: one area of central femoral condylar cartilage loss . ACL: intact. Estimated Blood Loss: 75 mL Drains: none Implants: Shira Persona knee: femur size 9 narrow, tibia size E, 10 mm congruent poly, size 35 mm patella Complications: None Specimens: None Procedure Details Le Rollins was seen in the preoperative area. Surgical site was marked. Appropriate antibiotic prophylaxis was given. Blocks were placed by the anesthesiologist. The patient wa s taken to the operating room where successful General LMA anesthesia was performed. The rig ht leg was placed in a thigh-high tourniquet. A sterile prep and drape were performed with Srinath oneil and Duran. An anterior approach followed by a medial para-patellar arthrotomy was us ed to gain access to the knee joint and extensive arthritic changes were confirmed. The medi al tibia sleeve was elevated. Anterior cruciate ligament was excised. Distal femur was resec ozzy using IM technique and then sized. This distal femoral cutting block was pinned in posit ion and the distal femoral cuts were created and bone fragments removed. Distal femoral post erior osteophytes were not present. The proximal tibia was retracted anteriorly and medial and lateral retractors were placed. The proximal tibial cutting block was aligned using the EM device and pinned in position. Th e cut was created and the bone was removed. The proximal tibia was sized, the appropriate b aseplate trial was pinned in position and the tibial keel was created. The tibial trial myra y trial was placed. The knee was taken through a range of motion. Good stability was achieve d. The patella was measured and resurfaced with a 3 peg construct. Patellar tracking was alvaro tral without additional releases. After washing and drying of the bony surfaces, the components were cemented on. Excess opal ent was removed. Tranexamic acid 3 grams was placed in the joint and left in place for 5 min utes. After hardening of the cement, the final tibial poly was locked into the tibial basepl ate with the ecmo specialist. Tourniquet was deflated. Hemostasis was achieved with Bovie cautery. The knee was thoroughly irrigated with pulse lavage saline. Arthrotomy closure was complete d with figure of 8 #1 Vicryl sutures, followed by layered closure of subcutaneous tissue and stapling of the skin. The joint was tapped dry and then injected with Marcaine with epineph rine, 30 mg of Toradol and 1 g of Vancomycin. Sterile bandages were applied followed by an A ce wrap. The patient tolerated the procedure without difficulty and was subsequently transfe rred to PACU in stable condition. POSTOPERATIVE PLAN: The patient will be allowed to weight bear as tolerated, ambulate with assistive device. Deep venous thrombosis prophylaxis using combination of mechanical and pha rmacologic means. Antibiotic prophylaxis for 24 hours. documented in this enc ounter Plan of Treatment + +------+--------+ + + | Name | Type | Priori | Associated Diagnoses | Order Schedule | | | | ty | | | + +------+--------+ + + | DME: Walker | DME | Routin | Status post total | DME 1 Time for 1 | | | | e | right knee | Occurrences starting | | | | | replacement | 07/19/2015 until | | | | | | 07/19/2015 | + +------+--------+ + + documented as of this encounter Procedures + +--------+ + + + | Procedure Name | Priori | Date/Time | Associated Diagnosis | Comments | | | ty | | | | + +--------+ + + + | HEMOGLOBIN AND | Routin | 07/18/2015 | | Results for this | | HEMATOCRIT | e | 6:19 AM | | procedure are in the | | | | PDT | | results section. | + +--------+ + + + | EXTRA GREEN TOP TUBE | Routin | 07/17/2015 | | Results for this | | | e | 6:54 AM | | procedure are in the | | | | PDT | | results section. | + +--------+ + + + | HEMOGLOBIN AND | Routin | 07/17/2015 | | Results for this | | HEMATOCRIT | e | 6:20 AM | | procedure are in the | | | | PDT | | results section. | + +--------+ + + + | POC GLUCOSE | Routin | 07/16/2015 | | Results for this | | | e | 5:18 PM | | procedure are in the | | | | PDT | | results section. | + +--------+ + + + | XR KNEE RIGHT 1 - 2 | STAT | 07/16/2015 | | Results for this | | VW | | 1:50 PM | | procedure are in the | | | | PDT | | results section. | + +--------+ + + + | ARTHROPLASTY KNEE | | 07/16/2015 | Primary | | | | | 11:53 AM | osteoarthritis of | | | | | PDT | right knee | | + +--------+ + + + +---+--------+ | | | | | Specia | | | l | | | Needs | | | Phillip | | | Rick | | | - | | | Shira | +---+--------+ + +--------+ +---+ + | POC GLUCOSE | Routin | 07/16/2015 | | Results for this | | | e | 11:17 AM | | procedure are in the | | | | PDT | | results section. | + +--------+ +---+ + | CULTURE, MRSA | Routin | 07/16/2015 | | Results for this | | | e | 10:57 AM | | procedure are in the | | | | PDT | | results section. | + +--------+ +---+ + documented in this encounter Results Hemoglobin and Hematocrit (07/18/2015 6:19 AM PDT) + +-------+ + + + | Component | Value | Ref Range | Performed | Pathologist | | | | | At | Signature | + +-------+ + + + | Hemoglobin | 11.9 | 11.5 - 16.0 | [facility] | | | | | g/dL | [facility] | | | | | [facility] | | | | | | [facility] - | | | | | | LABORATORY | | + +-------+ + + + | Hematocrit | 35.4 | 34.0 - 47.0 % | [facility] | | | | | | [facility] | | | | | | [facility] | | | | | | [facility] - | | | | | | LABORATORY | | + +-------+ + + + + + | Specimen | + + | Blood | + + + + + + + | Performing | Address | City/State/Zipcode | Phone Number | | Organization | | | | + + + + + | [facility] | [address] | [place], [place] | [phone] | | [facility] | | [address] | | | - LABORATORY | | | | + + + + + Extra Green Top Tube (07/17/2015 6:54 AM PDT) + +-------+ + + + | Component | Value | Ref Range | Performed | Pathologist | | | | | At | Signature | + +-------+ + + + | Extra Green | Done | | [facility] | | | Top Tube | | | [facility] | | [facility] | | [facility] | | | | | | [facility] - | | | | | | LABORATORY | | + +-------+ + + + + + | Specimen | + + | Blood | + + + + + + + | Performing | Address | City/State/Zipcode | Phone Number | | Organization | | | | + + + + + | [facility] | [address] | [place] | [phone] | | [facility] | | [address] | | | - LABORATORY | | | | + + + + + Hemoglobin and Hematocrit (07/17/2015 6:20 AM PDT) + + + + + + | Component | Value | Ref Range | Performed | Pathologist | | | | | At | Signature | + + + + + + | Hemoglobin | 11.1 (L) | 11.5 - 16.0 | [facility] | | | | | g/dL | [facility] | | | | | | [facility]ICAL | | | | | | CENTER - | | | | | | LABORATORY | | + + + + + + | Hematocrit | 32.7 (L) | 34.0 - 47.0 % | [facility] | | | | | | [facility] | | | | | | [facility] | | | | | | [facility] - | | | | | | LABORATORY | | + + + + + + + + | Specimen | + + | Blood | + + + + + + + | Performing | Address | City/State/Zipcode | Phone Number | | Organization | | | | + + + + + | [facility] | [address] | [place] | [phone] | | [facility] | | [address] | | | - LABORATORY | | | | + + + + + POC Glucose (07/16/2015 5:18 PM PDT) + +-------+ + + + | Component | Value | Ref Range | Performed | Pathologist | | | | | At | Signature | + +-------+ + + + | Glucose, | 133 | 70 - 150 mg/dL | [facility] | | | P[facility] | | | [facility] | | | | | | [facility] | | | | | | [facility] - | | | | | | LABORATORY | | + +-------+ + + + + + | Specimen | + + | Blood | + + + + + + + | Performing | Address | City/State/Zipcode | Phone Number | | Organization | | | | + + + + + | [facility] | [address] | [place] | [phone] | | [facility] | | [address] | | | - LABORATORY | | | | + + + + + XR Knee Right 1 - 2 Vw (07/16/2015 1:50 PM PDT) + + | Specimen | + + | | + + + + + | Narrative | Performed At | + + + | XR KNEE RIGHT 1 - 2 VW. 07/16/2015 1:50 PM HISTORY: post op . | [facility] | | COMPARISON: 06/06/2015 FINDINGS: Placement of right total knee | | | arthroplasty prosthesis noted, in satisfactory position and | | | alignment, without periprosthetic fracture or loosening. Expected | | | gas is seen within the joint capsule space, as well as in the | | | overlying soft tissues. Skin staple line seen anteriorly. | | | IMPRESSION - Placement of total knee arthroplasty in satisfactory | | | position and alignment, without evidence of hardware complication. | | | Expected postsurgical change. Dictated and Signed by: Casper | | | MD Rashmi Electronically signed: 07/16/2015 5:02 PM | | + + + + + | Procedure Note | + + | Steven Richards Results In - 07/16/2015 5:05 PM PDT XR KNEE RIGHT 1 - 2 VW. 07/16/2015 1:50 | | PMHISTORY: post op . COMPARISON: 06/06/2015FINDINGS:Placement of right total knee | | arthroplasty prosthesis noted, in satisfactoryposition and alignment, without | | periprosthetic fracture or loosening. Expectedgas is seen within the joint capsule | | space, as well as in the overlying softtissues. Skin staple line seen | | anteriorly.IMPRESSION -Placement of total knee arthroplasty in satisfactory position and | | alignment,without evidence of hardware complication. Expected postsurgical | | change.Dictated and Signed by: Casper Caraballo MD Electronically signed: 07/16/2015 | | 5:02 PM | |gas is seen within the joint capsule space, as well as in the overlying soft | |tissues. Skin staple line seen anteriorly. | | | |IMPRESSION - | |Placement of total knee arthroplasty in satisfactory position and alignment, | |without evidence of hardware complication. Expected postsurgical change. | | | |Dictated and Signed by: Casper Caraballo MD | | Electronically signed: 07/16/2015 5:02 PM | + + + +---------+ + + | Performing | Address | City/State/Zipcode | Phone Number | | Organization | | | | + +---------+ + + | [facility] | | | | + +---------+ + + POC Glucose (07/16/2015 11:17 AM PDT) + +-------+ + + + | Component | Value | Ref Range | Performed | Pathologist | | | | | At | Signature | + +-------+ + + + | Glucose, | 122 | 70 - 150 mg/dL | [facility] | | | POC | | | [facility] | | [facility] | | [facility] | | | | | | [facility] - | | | | | | LABORATORY | | + +-------+ + + + + + | Specimen | + + | Blood | + + + + + + + | Performing | Address | City/State/Zipcode | Phone Number | | Organization | | | | + + + + + | [facility] | [address] | [place] | [phone] | | [facility] | | [address] | | | - LABORATORY | | | | + + + + + Culture, MRSA (07/16/2015 10:57 AM PDT) + + + + + + | Component | Value | Ref Range | Performed | Pathologist | | | | | At | Signature | + + + + + + | Culture | Negative for MRSA by | | [facility] | | | | chromogenic agar method | | [facility] | [facility] | | [facility] | | | | | | [facility] - | | | | | | LABORATORY | | + + + + + + + + | Specimen | + + | Blood - Both | | anterior nares (body | | structure) | + + + + + + + | Performing | Address | City/State/Zipcode | Phone Number | | Organization | | | | + + + + + | [facility] | [address] | [place] | [phone] | | [facility] | | [address] | | | - LABORATORY | | | | + + + + + documented in this encounter Visit Diagnoses + + | Diagnosis | + + | Status post total right knee replacement - Primary | + + documented in this encounter Administered Medications + +--------+ + +------+------+ | Medication Order | MAR | Action | Dose | Rate | Site | | | Action | Date | | | | + +--------+ + +------+------+ | acetaminophen (TYLENOL) tablet | Given | 07/16/19 | 1,000 mg | | | | 1,000 mg 1,000 mg, Oral, ONCE, | | 16 10:54 | | | | | Wed07/16/15 at 1045, For 1 dose, | | AM PDT | | | | | Pre-op | | | | | | + +--------+ + +------+------+ +---+---+ | | | +---+---+ + +-------+ +--------+---+---+ | acetaminophen (TYLENOL) tablet | Given | 07/19/19 | 650 mg | | | | 650 mg 650 mg, Oral, EVERY 6 | | 16 12:31 | | | | | HOURS (4 times per day), First | | AM PDT | | | | | dose on Wed07/16/15 at 1800, | | | | | | | Post-op/Phase II | | | | | | + +-------+ +--------+---+---+ +-------+ +--------+---+---+ | Given | 07/18/19 | 650 mg | | | | | 16 5:13 | | | | | | PM PDT | | | | +-------+ +--------+---+---+ | Given | 07/18/19 | 650 mg | | | | | 16 12:53 | | | | | | PM PDT | | | | +-------+ +--------+---+---+ +---+---+ | | | +---+---+ + +-------+ + +---+---+ | adult multivitamin with | Given | 07/19/19 | 1 tablet | | | | minerals/iron tablet 1 tablet 1 | | 16 8:42 | | | | | tablet, Oral, DAILY, First dose | | AM PDT | | | | | on Wed07/16/15 at 1515, | | | | | | | Post-op/Phase II | | | | | | + +-------+ + +---+---+ +-------+ + +---+---+ | Given | 07/18/19 | 1 tablet | | | | | 16 8:27 | | | | | | AM PDT | | | | +-------+ + +---+---+ | Given | 07/17/19 | 1 tablet | | | | | 16 8:27 | | | | | | AM PDT | | | | +-------+ + +---+---+ +---+---+ | | | +---+---+ + +-------+ +--------+---+---+ | amLODIPine (NORVASC) tablet 2.5 | Given | 07/19/19 | 2.5 mg | | | | mg 2.5 mg, Oral, DAILY, First | | 16 8:41 | | | | | dose on Wed07/16/15 at 1515, | | AM PDT | | | | | Post-op/Phase II | | | | | | + +-------+ +--------+---+---+ +-------+ +--------+---+---+ | Given | 07/18/19 | 2.5 mg | | | | | 16 8:34 | | | | | | AM PDT | | | | +-------+ +--------+---+---+ | Given | 07/17/19 | 2.5 mg | | | | | 16 8:26 | | | | | | AM PDT | | | | +-------+ +--------+---+---+ +---+---+ | | | +---+---+ + +-------+ +--------+---+---+ | aspirin EC tablet 325 mg 325 | Given | 07/19/19 | 325 mg | | | | mg, Oral, 2 TIMES DAILY, First | | 16 8:41 | | | | | dose on Wed07/17/15 at 0900, Do | | AM PDT | | | | | not cut or crush Give first dose | | | | | | | within 20 hours of surgery end | | | | | | | time. Nursing/Pharmacy to retime | | | | | | | first dose to 1900 for surgeries | | | | | | | ending between 2200 and 0900., | | | | | | | Post-op/Phase II | | | | | | + +-------+ +--------+---+---+ +-------+ +--------+---+---+ | Given | 07/18/19 | 325 mg | | | | | 16 9:49 | | | | | | PM PDT | | | | +-------+ +--------+---+---+ | Given | 07/18/19 | 325 mg | | | | | 16 8:27 | | | | | | AM PDT | | | | +-------+ +--------+---+---+ +---+---+ | | | +---+---+ + +---------+ +-----+-------+---+ | ceFAZolin (ANCEF, KEFZOL) 2 g | New Bag | 07/17/19 | 2 g | 100 | | | in dextrose 5% 50 mL IVPB 2 g, | | 16 4:28 | | mL/hr | | | Intravenous, Administer over 30 | | AM PDT | | | | | Minutes, EVERY 8 HOURS INTERVAL, | | | | | | | First dose on Wed07/16/15 at | | | | | | | 2000, For 2 doses, Start 8 hours | | | | | | | after previous dose. Last dose | | | | | | | to be given within 24 hours of | | | | | | | surgery end time., Post-op/Phase | | | | | | | II, Indications: Surgical | | | | | | | Prophylaxis | | | | | | + +---------+ +-----+-------+---+ +---------+ +-----+-------+---+ | New Bag | 07/16/19 | 2 g | 100 | | | | 16 8:12 | | mL/hr | | | | PM PDT | | | | +---------+ +-----+-------+---+ +---+---+ | | | +---+---+ + +-------+ +--------+---+---+ | celecoxib (CELEBREX) capsule | Given | 07/16/19 | 200 mg | | | | 200 mg 200 mg, Oral, 2 TIMES | | 16 10:55 | | | | | DAILY, First dose on Wed07/16/15 | | AM PDT | | | | | at 1045, Doses > 200 mg should be | | | | | | | given with meals., Pre-op | | | | | | + +-------+ +--------+---+---+ +---+---+ | | | +---+---+ + +-------+ +--------+---+---+ | celecoxib (CELEBREX) capsule | Given | 07/19/19 | 200 mg | | | | 200 mg 200 mg, Oral, 2 TIMES | | 16 8:40 | | | | | DAILY, First dose on Wed07/16/15 | | AM PDT | | | | | at 2100, Doses > 200 mg should be | | | | | | | given with meals., Post-op/Phase | | | | | | | II | | | | | | + +-------+ +--------+---+---+ +-------+ +--------+---+---+ | Given | 07/18/19 | 200 mg | | | | | 16 9:49 | | | | | | PM PDT | | | | +-------+ +--------+---+---+ | Given | 07/18/19 | 200 mg | | | | | 16 8:27 | | | | | | AM PDT | | | | +-------+ +--------+---+---+ +---+---+ | | | +---+---+ + +-------+ +--------+---+---+ | cyanocobalamin (VITAMIN B-12) | Given | 07/19/19 | 1,000 | | | | tablet 1,000 mcg 1,000 mcg, | | 16 8:41 | mcg | | | | Oral, DAILY, First dose on Wed | | AM PDT | | | | | 07/16/15 at 1515, Post-op/Phase II | | | | | | + +-------+ +--------+---+---+ +-------+ +--------+---+---+ | Given | 07/18/19 | 1,000 | | | | | 16 8:27 | mcg | | | | | AM PDT | | | | +-------+ +--------+---+---+ | Given | 07/17/19 | 1,000 | | | | | 16 8:27 | mcg | | | | | AM PDT | | | | +-------+ +--------+---+---+ +---+---+ | | | +---+---+ + +-------+ +-------+---+---+ | diphenhydrAMINE (BENADRYL) | Given | 07/18/19 | 25 mg | | | | tablet 25 mg 25 mg, Oral, EVERY | | 16 8:27 | | | | | 4 HOURS PRN, Itching, Starting | | AM PDT | | | | | 07/16/15 at 1447, Oral route | | | | | | | is preferred., Post-op/Phase II | | | | | | + +-------+ +-------+---+---+ +-------+ +-------+---+---+ | Given | 07/17/19 | 25 mg | | | | | 16 10:33 | | | | | | PM PDT | | | | +-------+ +-------+---+---+ +---+---+ | | | +---+---+ + +-------+ +--------+---+---+ | docusate sodium (COLACE) | Given | 07/19/19 | 100 mg | | | | capsule 100 mg 100 mg, Oral, 2 | | 16 8:40 | | | | | TIMES DAILY, First dose on Wed | | AM PDT | | | | | 07/16/15 at 2100, First line agent | | | | | | | for constipation, Post-op/Phase | | | | | | | II | | | | | | + +-------+ +--------+---+---+ +-------+ +--------+---+---+ | Given | 07/18/19 | 100 mg | | | | | 16 9:49 | | | | | | PM PDT | | | | +-------+ +--------+---+---+ | Given | 07/18/19 | 100 mg | | | | | 16 8:27 | | | | | | AM PDT | | | | +-------+ +--------+---+---+ +---+---+ | | | +---+---+ + +-------+ +-------+---+---+ | DULoxetine (CYMBALTA) DR | Given | 07/19/19 | 60 mg | | | | capsule 60 mg 60 mg, Oral, | | 16 8:41 | | | | | DAILY, First dose on Wed07/16/15 | | AM PDT | | | | | at 1515, Do not open capsule., | | | | | | | Post-op/Phase II | | | | | | + +-------+ +-------+---+---+ +-------+ +-------+---+---+ | Given | 07/18/19 | 60 mg | | | | | 16 8:27 | | | | | | AM PDT | | | | +-------+ +-------+---+---+ | Given | 07/17/19 | 60 mg | | | | | 16 8:26 | | | | | | AM PDT | | | | +-------+ +-------+---+---+ +---+---+ | | | +---+---+ + +-------+ +-------+---+---+ | hydrochlorothiazide tablet 25 | Given | 07/19/19 | 25 mg | | | | mg 25 mg, Oral, DAILY, First | | 16 8:41 | | | | | dose on Wed07/16/15 at 1515 | | AM PDT | | | | + +-------+ +-------+---+---+ +-------+ +-------+---+---+ | Given | 07/18/19 | 25 mg | | | | | 16 8:28 | | | | | | AM PDT | | | | +-------+ +-------+---+---+ | Given | 07/17/19 | 25 mg | | | | | 16 8:27 | | | | | | AM PDT | | | | +-------+ +-------+---+---+ +---+---+ | | | +---+---+ + +-------+ +---------+---+---+ | HYDROcodone-acetaminophen | Given | 07/19/19 | 2 | | | | (NORCO) 5-325 mg per tablet 1-2 | | 16 4:54 | tablets | | | | tablet 1-2 tablet, Oral, EVERY 4 | | AM PDT | | | | | HOURS PRN, Pain, Starting Tue | | | | | | | 07/16/15 at 1447, If ineffective | | | | | | | use [place] 10/325 if ordered. If | | | | | | | not tolerated, use Percocet then | | | | | | | Oxycodone if ordered., | | | | | | | Post-op/Phase II | | | | | | + +-------+ +---------+---+---+ +-------+ +---------+---+---+ | Given | 07/18/19 | 2 | | | | | 16 6:08 | tablets | | | | | AM PDT | | | | +-------+ +---------+---+---+ | Given | 07/17/19 | 2 | | | | | 16 10:35 | tablets | | | | | PM PDT | | | | +-------+ +---------+---+---+ +---+---+ | | | +---+---+ + + + +---+-------+---+ | lactated ringers (LR) infusion | Rate/Dos | 07/16/19 | | 100 | | | at 10-100 mL/hr, Intravenous, | e Change | 16 11:55 | | mL/hr | | | CONTINUOUS, Starting 07/16/15 | | PM PDT | | | | | at 1045, TKO., Pre-op | | | | | | + + + +---+-------+---+ +---------+ +---+---+---+ | New Bag | 07/16/19 | | | | | | 16 1:04 | | | | | | PM PDT | | | | +---------+ +---+---+---+ | New Bag | 07/16/19 | | | | | | 16 11:33 | | | | | | AM PDT | | | | +---------+ +---+---+---+ +---+---+ | | | +---+---+ + +---------+ +--------+-------+---+ | lactated ringers (LR) infusion | New Bag | 07/17/19 | 1,000 | 100 | | | at 100 mL/hr, Intravenous, | | 16 12:21 | mLs | mL/hr | | | CONTINUOUS, Starting 07/16/15 | | AM PDT | | | | | at 1515, 2 liters then | | | | | | | discontinue, Post-op/Phase II | | | | | | + +---------+ +--------+-------+---+ +---------+ +---+-------+---+ | New Bag | 07/16/19 | | 100 | | | | 16 3:06 | | mL/hr | | | | PM PDT | | | | +---------+ +---+-------+---+ +---+---+ | | | +---+---+ + +-------+ +---------+---+---+ | levothyroxine (SYNTHROID, | Given | 07/19/19 | 150 mcg | | | | LEVOTHROID) tablet 150 mcg 150 | | 16 5:55 | | | | | mcg, Oral, DAILY BEFORE | | AM PDT | | | | | BREAKFAST, First dose on Wed | | | | | | | 07/17/15 at 0730, Give before | | | | | | | breakfast., Post-op/Phase II | | | | | | + +-------+ +---------+---+---+ +-------+ +---------+---+---+ | Given | 07/18/19 | 150 mcg | | | | | 16 6:08 | | | | | | AM PDT | | | | +-------+ +---------+---+---+ | Given | 07/17/19 | 150 mcg | | | | | 16 6:11 | | | | | | AM PDT | | | | +-------+ +---------+---+---+ +---+---+ | | | +---+---+ + +-------+ +-------+---+---+ | lisinopril (PRINIVIL, ZESTRIL) | Given | 07/19/19 | 20 mg | | | | tablet 20 mg 20 mg, Oral, DAILY, | | 16 8:41 | | | | | First dose on Wed07/16/15 at | | AM PDT | | | | | 1515 | | | | | | + +-------+ +-------+---+---+ +-------+ +-------+---+---+ | Given | 07/18/19 | 20 mg | | | | | 16 8:27 | | | | | | AM PDT | | | | +-------+ +-------+---+---+ | Given | 07/17/19 | 20 mg | | | | | 16 8:27 | | | | | | AM PDT | | | | +-------+ +-------+---+---+ +---+---+ | | | +---+---+ + +-------+ +--------+---+---+ | metFORMIN (GLUCOPHAGE) tablet | Given | 07/19/19 | 500 mg | | | | 500 mg 500 mg, Oral, 2 TIMES | | 16 8:41 | | | | | DAILY WITH BREAKFAST & DINNER, | | AM PDT | | | | | First dose on Wed07/16/15 at | | | | | | | 1700, Stop metFORMIN prior to | | | | | | | procedures using IV iodinated | | | | | | | contrast & continue to hold 48 | | | | | | | hours after receiving IV | | | | | | | iodinated contrast. Don't resume | | | | | | | until renal function is normal., | | | | | | | Post-op/Phase II | | | | | | + +-------+ +--------+---+---+ +-------+ +--------+---+---+ | Given | 07/18/19 | 500 mg | | | | | 16 5:13 | | | | | | PM PDT | | | | +-------+ +--------+---+---+ | Given | 07/18/19 | 500 mg | | | | | 16 8:27 | | | | | | AM PDT | | | | +-------+ +--------+---+---+ +---+---+ | | | +---+---+ + +-------+ +-------+---+---+ | pantoprazole (PROTONIX) DR | Given | 07/19/19 | 40 mg | | | | tablet 40 mg 40 mg, Oral, DAILY | | 16 5:55 | | | | | BEFORE BREAKFAST, First dose on | | AM PDT | | | | | 07/17/15 at 0730, Do not cut | | | | | | | or crush., Post-op/Phase II | | | | | | + +-------+ +-------+---+---+ +-------+ +-------+---+---+ | Given | 07/18/19 | 40 mg | | | | | 16 6:08 | | | | | | AM PDT | | | | +-------+ +-------+---+---+ | Given | 07/17/19 | 40 mg | | | | | 16 6:11 | | | | | | AM PDT | | | | +-------+ +-------+---+---+ +---+---+ | | | +---+---+ + +-------+ +-------+---+---+ | pregabalin (LYRICA) capsule 75 | Given | 07/16/19 | 75 mg | | | | mg 75 mg, Oral, 2 TIMES DAILY, | | 16 10:55 | | | | | First dose on Wed07/16/15 at | | AM PDT | | | | | 1045, Pre-op | | | | | | + +-------+ +-------+---+---+ +---+---+ | | | +---+---+ + +-------+ +-------+---+---+ | pregabalin (LYRICA) capsule 75 | Given | 07/19/19 | 75 mg | | | | mg 75 mg, Oral, 2 TIMES DAILY, | | 16 8:41 | | | | | First dose on Wed07/16/15 at | | AM PDT | | | | | 2100, Post-op/Phase II | | | | | | + +-------+ +-------+---+---+ +-------+ +-------+---+---+ | Given | 07/18/19 | 75 mg | | | | | 16 9:49 | | | | | | PM PDT | | | | +-------+ +-------+---+---+ | Given | 07/18/19 | 75 mg | | | | | 16 8:27 | | | | | | AM PDT | | | | +-------+ +-------+---+---+ +---+---+ | | | +---+---+ + +-------+ +--------+---+---+ | senna (SENOKOT) tablet 8.6 mg | Given | 07/19/19 | 8.6 mg | | | | 8.6 mg, Oral, 2 TIMES DAILY, | | 16 8:41 | | | | | First dose on Wed07/16/15 at | | AM PDT | | | | | 2100, If docusate ineffective or | | | | | | | not ordered, Post-op/Phase II | | | | | | + +-------+ +--------+---+---+ +-------+ +--------+---+---+ | Given | 07/18/19 | 8.6 mg | | | | | 16 9:49 | | | | | | PM PDT | | | | +-------+ +--------+---+---+ | Given | 07/18/19 | 8.6 mg | | | | | 16 8:27 | | | | | | AM PDT | | | | +-------+ +--------+---+---+ +---+---+ | | | +---+---+ documented in this encounter
--- OUTSIDE RECORDS SUMMARY | ~2020-02-03 | XMS | Encounter Summary ---
Demographics + + + | Address | [address] | | | [place] [address] | + + + | Home Phone [...] Author + + + | Author | [facility] | | | and [place] | + + + | Organization | [facility] | | | [...] Team Providers + +------+ + | Care Chemical Pumper Name | Role | Phone | + +------+ + PCP | Unavailable | + +------+ + Reason for Visit Diagnostic/Screening (Routine) +--------+--------+ + + + + | Status | Reason | Specialty | Diagnoses / | Referred By | Referred To | | | | | Procedures | Contact | Contact | +--------+--------+ + + + + | Closed | | Radiology | Diagnoses | Nivia, | [facility] | | | | | Aortic | MD Alicia | Medicine | | | | | valve | [address] | [address] | | | | | stenosis, | [address] | [place], | | | | | etiology of | [place], | [place] | | | | | cardiac | [place] [address] | [address] | | | | | valve | Phone: | Phone: | | | | | disease | [phone] | [phone] | | | | | unspecified | Fax: | Fax: | | | | | Procedures | [phone] | [phone] | | | | | NM Nuclear | | | | | | | Stress Test | | | | | | | (Vasodilator | | | | | | | ) CHG | | | | | | | MYOCARDIAL | | | | | | | SPECT | | | | | | | MULTIPLE | | | | | | | STUDIES [place] | | | | | | | CV STRS TST | | | | | | | XERS&/OR RX | | | | | | | CONT ECG W/O | | | | | | | I&R [place] | | | | | | | CARDIAC | | | | | | | STRESS | | | | | | | TST,INTERP/R | | | | | | | EPT ONLY | | | +--------+--------+ + + + + Encounter Details +--------+ + + + + | Date | Type | Department | Care Team | Description | +--------+ + + + + | 07/13/ | Hospital | [facility] | Alicia Gonzáles, | | | 2019 | Encounter | [facility] | MD [address] | | | | | MEDICINE [address] [place], | | | | | [place], | [place] [address] | | | | | [place] [address] | [phone] | | | | | [phone] | | | +--------+ + + + [...] by mouth | 100 | 0 | 07/28/19 | | | (TYLENOL) 325 mg | every 8 hours as | tablet | | 16 | | | tablet | needed for Pain. | | | | | + + + +---------+ + + | apixaban (ELIQUIS) | Take 1 tablet by | 60 | 5 | 05/11/19 | | | 5 mg tablet | mouth 2 times daily. | tablet | | 19 | | + + + +---------+ + + | atorvaSTATin | Take 1 tablet by | 30 | 5 | 05/11/19 | | | (LIPITOR) 80 MG | mouth nightly. | tablet | | 19 | | | tablet | | | | | | + + + +---------+ + + | calcium-vitamin D | Take 1 tablet by | | 0 | | | | (OSCAL) 500 mg-200 | mouth Daily. | | | | | | units per tablet | | | | | [...] +---------+ + + | DULoxetine | Take 60 mg by mouth | | 0 | | | | (CYMBALTA) [address] | Daily. With 20mg | | | | | | capsule | capsule for total | | | | | | | dose of 80 mg | | | | | + + + +---------+ + + | EPINEPHrine | Inject 0.3 mLs into | 1 each | 1 | 07/13/19 | | | auto-injector 0.3 | the muscle as needed | | | 18 | | | mg/0.3 mL injection | for Anaphylaxis. | | | | | + + + +---------+ + + | isosorbide | TAKE ONE TABLET BY | 90 | 3 | 06/07/19 | | | mononitrate (IMDUR) | MOUTH ONE TIME DAILY | tablet | | 19 | | | 30 mg ER tablet | | | | | | + + + +---------+ + + | | Take 1 tablet by | 30 | 5 | 01/16/20 | | | lisinopril-hydrochlo | mouth Daily. | tablet | | 19 | | | rothiazide | | | | | | | (DOMINIC ROJAS | | | | | | | ) 20-25 MG per | | | | | | | tablet | | | | | | + + + +---------+ + + | Magnesium 500 MG | Take 1 tablet by | 30 | 5 | 05/11/19 | | | tablet | mouth Daily. | tablet | | 19 | | + + + +---------+ + + | Multiple | Take 1 tablet by | | 0 | | | | Vitamins-Minerals | mouth Daily. | | | | | | (MULTIVITAMIN PO) | | | | | | + + + +---------+ + + | pantoprazole | Take 1 tablet by | 84 | 1 | 07/13/19 | | | (PROTONIX) 40 mg | mouth 2 times daily | tablet | | 18 | | | tablet | (before meals). | | | | | + + + +---------+ + + | QUEtiapine | Take 25 mg by mouth | | 0 | 06/28/19 | | | (SEROQUEL) 25 mg | nightly. | | | 19 | | | tablet | | | | | | + + + +---------+ + + | UNABLE TO FIND | Med Name: Resmed | | 0 | | | | | AirSense 10 autoset | | | | | | | CPAP: 5-20cm while | | | | | | | sleeping. | | | | | + + + +---------+ + + | aspirin 81 MG | Take 2 tablets by | 60 | 5 | 05/11/19 | | | tablet | mouth Daily. | tablet | | 19 | 9 | + + + +---------+ + + | clonazePAM | | | 0 | 06/03/19 | | | (KLONOPIN) 0.5 mg | | | | 19 | 0 | | tablet | | | | | | + + + +---------+ + + | Homeopathic | Take 1 tablet by | | 0 | | | | Products (LEG CRAMP | mouth. | | | | 0 | | RELIEF) TABS | | | | | | + + + +---------+ + + | levothyroxine | Take 175 mcg by | | 0 | | | | (SYNTHROID) 175 MCG | mouth every morning | | | | 0 | | tablet | (before breakfast). | | | | | + + + +---------+ + + | levothyroxine | Take 100 mcg by | | 0 | 06/28/19 | | | (SYNTHROID) 200 mcg | mouth every morning | | | 19 | 0 | | tablet | (before breakfast). | | | | | + + + +---------+ + + | nitroglycerin | Place 1 tablet under | 25 | 5 | 05/11/19 | | | (NITROSTAT) 0.4 mg | the tongue every 5 | tablet | | 19 | 9 | | SL tablet | minutes as needed | | | | | | | for Chest pain. | | | | | + + + +---------+ + + | traMADol (ULTRAM) | Take 1 tablet by | 15 | 0 | 11/04/19 | | | 50 mg tablet | mouth every 8 hours | tablet | | 18 | 0 | | | as needed. | | | | | + + + +---------+ + + documented as of this encounter Plan of Treatment Not on filedocumented as of this encounter Procedures + +--------+ + + + | Procedure Name | Priori | Date/Time | Associated Diagnosis | Comments | | | ty | | | | + +--------+ + + + | NM NUCLEAR STRESS | Routin | 07/13/2018 | Aortic valve | Results for this | | TEST (PHARMACOLOGIC | e | 1:07 PM | stenosis, etiology | procedure are in the | | - VASODILATOR) | | PDT | of cardiac valve | results section. | | | | | disease unspecified | | + +--------+ + + + documented in this encounter Visit Diagnoses Not on filedocumented in this encounter Administered Medications + +--------+ + +------+------+ | Medication Order | MAR | Action | Dose | Rate | Site | | | Action | Date | | | | + +--------+ + +------+------+ | technetium TC-99M sestamibi | Given | 07/14/19 | 30.7 | | | | (CARDIOLITE) injection 30.7 | | 19 12:28 | millicur | | | | millicurie 30.7 millicurie, | | PM PDT | ies | | | | Intravenous, ONCE PRN, Other, | | | | | | | Starting 07/13/18 at 1228, For | | | | | | | 1 dose, Nuclear Medicine | | | | | | + +--------+ + +------+------+ +---+---+ | | | +---+---+ documented in this encounter"
--- OUTSIDE RECORDS SUMMARY | ~2020-02-03 | XMS | Encounter Summary ---
Demographics + + + | Address | [address] | | | [place] [address] | + + + | Home Phone | | + + + | Preferred Language | Unknown | + + + | Marital Status | Single | + + + | Adventist Affiliation | 1013 | + + + | Race | White | + + + | Ethnic Group | Not or | + + + Author + + + | Author | [facility] | | | and [place] | + + + | Organization | [facility] | | | [...] Team Providers + +------+ + | Care Child Life Therapist Name | Role | Phone | + +------+ + PCP | Unavailable | + +------+ + Encounter Details +--------+ + + + + | Date | Type | Department | Care Team | Description | +--------+ + + + + | 09/29/ | Abstract | [facility] | Provider, | Anemia, unspecified | | 2018 | | CARDIOLOGY [address] | [address] | type; Hepatitis; | | | | [place], | [address] | Family history of | | | | [place] [address] | [place] [address] | type II diabetes | | | | [phone] | | mellitus; | | | | | | Osteoarthritis, | | | | | | unspecified | | | | | | osteoarthritis type, | | | | | | unspecified site | +--------+ + + + + Social [...] filedocumented as of this encounter Visit Diagnoses + + | Diagnosis | + + | Anemia, unspecified type | + + | Hepatitis Hepatitis, unspecified | + + | Family history of type II diabetes mellitus Family history of diabetes mellitus | + + | Osteoarthritis, unspecified osteoarthritis type, unspecified site | + + documented in this encounter"
--- OUTSIDE RECORDS SUMMARY | ~2020-02-03 | XMS | Encounter Summary ---
Demographics + + + | Address | [address] | | | [place] [address] | + + + | Home Phone | | + + + | Preferred Language | Unknown | + + + | Marital Status | Single | + + + | Zoroastrian Affiliation | 1013 | + + + | Race | White | + + + | Ethnic Group | Not or | + + + Author + + + | Author | [facility] | | | and [place] | + + + | Organization | [facility] | | | [...] Team Providers + +------+ + | Care Core Java Software Engineer Name | Role | Phone | + +------+ + | Wilson Lin MD | PCP | | + +------+ + Encounter Details +--------+ + + + + | Date | Type | Department | Care Team | Description | +--------+ + + + + | 03/10/ | Orders Only | [facility] | Ayala Cuevas | | | 2016 | | [address] | | | | | [address] | [place] [address] | | | | | [place], [place] | [place] [address] | | | | | [phone] | [phone] | | | | | [phone] | | | +--------+ + + + [...] | + +--------+ + + + | ECHO INTERPRETATION | Routin | 03/10/2017 | | Results for this | | OF OUTSIDE FILMS | e | 3:43 PM | | procedure are in the | | | | PST | | results section. | + +--------+ + + + documented in this encounter Results ECHO Interpretation of Outside Films (03/10/2017 3:43 PM PST) + + | Specimen | + + | | + + + + + | Impressions | Performed At | + + + | 1. The left ventricle is normal in size, wall thickness and systolic | | | function EF 60-65%. 2. The diastolic filling pattern indicates | | | impaired relaxation consistent with mild dysfunction (Grade I). 3. | | | The aortic valve is moderately calcified with moderate aortic stenosis | | | and mild regurgitation. 4. Mild mitral regurgitation with mildly | | | enlarged left atrium. 5. Mild tricuspid regurgitation with no | | | pulmonary hypertension. 6. There is none/trivial pericardial | | | effusion. | | + + + + + + | Narrative | Performed At | + + + | Patient Name: Le Rollins Date of : 1945 | | | Performing Physician: Shirley Hartman | | | | | | INDICATIONS CAD, Valvular heart disease, HTN | | | CONCLUSIONS 1. The left ventricle is normal in size, | | | wall thickness and systolic function EF 60-65%. 2. The diastolic | | | filling pattern indicates impaired relaxation consistent with mild | | | dysfunction (Grade I). 3. The aortic valve is moderately calcified | | | with moderate aortic stenosis and mild regurgitation. 4. Mild mitral | | | regurgitation with mildly enlarged left atrium. 5. Mild tricuspid | | | regurgitation with no pulmonary hypertension. 6. There is | | | none/trivial pericardial effusion. FINDINGS -------- ECG rhythm: | | | Sinus rhythm. ECG rhythm: Resting borderline bradycardia (HR<60bpm). | | | Study: A 2-dimensional transthoracic echocardiogram with m-mode, | | | spectral and color flow Doppler was perfomed. Study: This was a | | | technically adequate study. Left Ventricle: Overall left ventricular | | | systolic function is normal with, an EF between 60 - 65 %. Left | | | Ventricle: The left ventricle cavity size is normal. Left Ventricle: | | | Left ventricular wall thickness is normal. Left Ventricle: No | | | regional wall motion abnormalities. Left Ventricle: The diastolic | | | filling pattern indicates impaired relaxation consistent with mild | | | dysfunction (Grade I). Right Ventricle: The right ventricle is normal | | | in size. Right Ventricle: The right ventricular systolic function is | | | normal. Left Atrium: The left atrium is mildly dilated. Right | | | Atrium: The right atrium is normal in size. Aortic Valve: Aortic | | | valve is trileaflet . Aortic Valve: The aortic valve is moderately | | | calcified. Aortic Valve: There is mild aortic regurgitation. Aortic | | | Valve: The aortic pressure half-time by doppler is 618ms. Aortic | | | Valve: Moderate aortic stenosis with peak/mean pressure gradient of | | | 25.07mmHg / 14.07mmHg, the aortic valve area by continuity equation is | | | 1.3cm . Aortic Valve: Immobile right coronary cusp. Mitral | | | Valve: Mild mitral regurgitation is present. Mitral Valve: Mild | | | mitral annular calcification present. Tricuspid Valve: The tricuspid | | | valve appears structurally normal. Tricuspid Valve: Mild tricuspid | | | regurgitation present. Tricuspid Valve: There is no evidence of | | | pulmonary hypertension. Tricuspid Valve: The right ventricular | | | systolic pressure (pulmonary artery systolic pressure), as measured by | | | Doppler, is 23.88mmHg. Pulmonic Valve: The pulmonic valve was not | | | well visualized. Pericardium: There is none/trivial pericardial | | | effusion. Pericardium: No pleural effusion seen. IVC/Hepatic Veins: | | | The IVC is normal size (1.5-2.5cm) and collapses >50% with sniff, | | | consistent with central venous pressures of 5-10mmHg. Aorta: The | | | aortic root, ascending aorta are within normal dimensions. | | | MEASUREMENTS Ao asc: 3.22 cm Ao Diam: 2.58 cm | | | Ao st junct: 2.82 cm IVC: 1.45 cm LA Diam: 3.66 cm LA | | | Major: 4.34 cm EDV(Teich): 43.29 ml IVSd: 0.80 cm LVIDd: | | | 3.27 cm LVPWd: 0.94 cm LVOT Area: 2.75 cm2 LVOT Diam: | | | 1.87 cm %FS: 31.86 % EF(Teich): 61.23 % ESV(Teich): 16.78 | | | ml LVIDs: 2.23 cm SV(Teich): 26.51 ml RA Major: 4.82 cm | | | RV Major: 5.31 cm RVIDd: 2.44 cm LVEF MOD A2C: 66.15 % SV | | | MOD A2C: 51.00 ml LVEF MOD A4C: 60.21 % SV MOD A4C: 41.64 | | | ml EF Biplane: 64.35 % LVEDV MOD BP: 76.74 ml LVESV MOD BP: | | | 27.35 ml LVEDV MOD A2C: 77.09 ml LVLd A2C: 7.87 cm LVEDV | | | MOD A4C: 69.15 ml LVLd A4C: 7.10 cm LVESV MOD A2C: 26.09 ml | | | LVLs A2C: 6.55 cm LVESV MOD A4C: 27.51 ml LVLs A4C: 6.20 | | | cm LAESV(A-L): 61.30 ml LAESV Index (A-L): 34.05 ml/m2 LAAs | | | A2C: 18.86 cm2 LAESV A-L A2C: 58.87 ml LALs A2C: 5.13 cm | | | LAAs A4C: 15.91 cm2 LAESV A-L A4C: 51.71 ml LALs A4C: 4.15 | | | cm RAAs: 16.26 cm2 RAESV A-L: 43.61 ml RAESV MOD: 41.90 ml | | | RALs: 5.14 cm TAPSE: 2.53 cm AR Dec [place]: 1.92 m/s2 AR | | | Dec Time: 2130.21 ms AR maxP.50 mmHg AR PHT: 617.76 ms | | | AR Vmax: 4.10 m/s AV maxP.07 mmHg AV meanP.06 | | | mmHg AV Vmax: 2.50 m/s AV Vmean: 1.78 m/s AV VTI: 54.72 cm | | | ARISTIDES Vmax: 1.12 cm2 ARISTIDES (VTI): 1.31 cm2 AVAI Vmax: 0.00 | | | cm2/m2 AVAI (VTI): 0.00 cm2/m2 LVOT maxP.22 mmHg LVOT | | | meanP.51 mmHg LVSI Dopp: 39.83 ml/m2 LVSV Dopp: 71.70 | | | ml LVOT Vmax: 1.02 m/s LVOT Vmean: 0.76 m/s LVOT VTI: | | | 26.05 cm MV A Isaac: 0.76 m/s MV DecT: 290.35 ms MV E Isaac: | | | 0.85 m/s MV E/A Ratio: 1.11 MV PHT: 84.20 ms MVA By PHT: | | | 2.61 cm2 Septal e': 0.04 m/s Septal E/e': 20.23 Lateral e': | | | 0.06 m/s Lateral E/e': 13.92 RAP: 5 mmHg RVSP: 23.88 | | | mmHg TR maxP.88 mmHg TR Vmax: 2.17 m/s Upholstery Technician: | | | SUZANNE Authenticated by: Shirley Hartman Report Date/Time: 03-10-2017 | | | 20:41:40 | | + + + + + | Procedure Note | + + | Maurice, Rad Conversion - 12/15/2018 7:35 PM PDT Patient Name: Lindsay Rollins of | | : 1945 Performing Physician: Shirley | | Devan INDICATIONS------ | | -----CAD, Valvular heart disease, HTN CONCLUSIONS 1. The left ventricle is | | normal in size, wall thickness and systolic function EF 60-65%.2. The diastolic filling | | pattern indicates impaired relaxation consistent with mild dysfunction (Grade I).3. The | | aortic valve is moderately calcified with moderate aortic stenosis and mild | | regurgitation.4. Mild mitral regurgitation with mildly enlarged left atrium.5. Mild | | tricuspid regurgitation with no pulmonary hypertension.6. There is none/trivial | | pericardial effusion. FINDINGS--------ECG rhythm: Sinus rhythm.ECG rhythm: Resting | | borderline bradycardia (HR<60bpm).Study: A 2-dimensional transthoracic echocardiogram | | with m-mode, spectral and color flow Doppler was perfomed.Study: This was a technically | | adequate study.Left Ventricle: Overall left ventricular systolic function is normal | | with, an EF between 60 - 65 %.Left Ventricle: The left ventricle cavity size is | | normal.Left Ventricle: Left ventricular wall thickness is normal.Left Ventricle: No | | regional wall motion abnormalities.Left Ventricle: The diastolic filling pattern | | indicates impaired relaxation consistent with mild dysfunction (Grade I).Right | | Ventricle: The right ventricle is normal in size.Right Ventricle: The right ventricular | | systolic function is normal.Left Atrium: The left atrium is mildly dilated.Right Atrium: | | The right atrium is normal in size.Aortic Valve: Aortic valve is trileaflet .Aortic | | Valve: The aortic valve is moderately calcified.Aortic Valve: There is mild aortic | | regurgitation.Aortic Valve: The aortic pressure half-time by doppler is 618ms.Aortic | | Valve: Moderate aortic stenosis with peak/mean pressure gradient of 25.07mmHg / | | 14.07mmHg, the aortic valve area by continuity equation is 1.3cm .Aortic Valve: | | Immobile right coronary cusp.Mitral Valve: Mild mitral regurgitation is present.Mitral | | Valve: Mild mitral annular calcification present.Tricuspid Valve: The tricuspid valve | | appears structurally normal.Tricuspid Valve: Mild tricuspid regurgitation | | present.Tricuspid Valve: There is no evidence of pulmonary hypertension.Tricuspid Valve: | | The right ventricular systolic pressure (pulmonary artery systolic pressure), as | | measured by Doppler, is 23.88mmHg.Pulmonic Valve: The pulmonic valve was not well | | visualized.Pericardium: There is none/trivial pericardial effusion.Pericardium: No | | pleural effusion seen.IVC/Hepatic Veins: The IVC is normal size (1.5-2.5cm) and | | collapses >50% with sniff, consistent with central venous pressures of 5-10mmHg.Aorta: | | The aortic root, ascending aorta are within normal dimensions. | | MEASUREMENTS Ao asc: 3.22 cmAo Diam: 2.[address] junct: 2.82 cmIVC: | | 1.45 cmLA Diam: 3.66 cmLA Major: 4.34 cmEDV(Teich): 43.29 mlIVSd: 0.80 cmLVIDd: | | 3.27 cmLVPWd: 0.94 cmLVOT Area: 2.75 [id number] Diam: 1.87 cm%FS: 31.86 | | %EF(Teich): 61.23 %ESV(Teich): 16.78 mlLVIDs: 2.23 cmSV(Teich): 26.51 mlRA | | Major: 4.82 cmRV Major: 5.31 cmRVIDd: 2.44 cmLVEF MOD A2C: 66.15 %SV MOD A2C: | | 51.00 mlLVEF MOD A4C: 60.21 %SV MOD A4C: 41.64 mlEF Biplane: 64.35 %LVEDV MOD BP: | | 76.74 mlLVESV MOD BP: 27.35 mlLVEDV MOD A2C: 77.09 mlLVLd A2C: 7.87 cmLVEDV MOD | | A4C: 69.15 mlLVLd A4C: 7.10 cmLVESV MOD A2C: 26.09 mlLVLs A2C: 6.55 cmLVESV MOD | | A4C: 27.51 mlLVLs A4C: 6.20 cmLAESV(A-L): 61.30 mlLAESV Index (A-L): 34.05 | | ml/m2LAAs A2C: 18.86 [id number] A-L A2C: 58.87 mlLALs A2C: 5.13 cmLAAs A4C: 15.91 | | [id number] A-L A4C: 51.71 mlLALs A4C: 4.15 cmRAAs: 16.26 ym2VLXHR A-L: 43.61 | | mlRAESV MOD: 41.90 mlRALs: 5.14 cmTAPSE: 2.53 cmAR Dec [place]: 1.92 m/s2AR Dec | | Time: 2130.21 msAR maxP.50 mmHgAR PHT: 617.76 msAR Vmax: 4.10 m/Robb maxPG: | | 25.07 mmHgAV meanP.06 mmHgAV Vmax: 2.50 m/Robb Vmean: 1.78 m/Robb VTI: | | 54.72 cmAVA Vmax: 1.12 cm2AVA (VTI): 1.31 [id number] Vmax: 0.00 cm2/m2AVAI (VTI): | | 0.00 cm2/m2LVOT maxP.22 mmHgLVOT meanP.51 mmHgLVSI Dopp: 39.83 ml/m2LVSV | | Dopp: 71.70 mlLVOT Vmax: 1.02 m/sLVOT Vmean: 0.76 m/sLVOT VTI: 26.05 cmMV A Isaac: | | 0.76 m/sMV DecT: 290.35 msMV E Isaac: 0.85 m/sMV E/A Ratio: 1.11MV PHT: 84.20 | | msMVA By PHT: 2.61 qs5Upixdd e': 0.04 m/sSeptal E/e': 20.23Lateral e': 0.06 | | m/sLateral E/e': 13.92RAP: 5 mmHgRVSP: 23.88 mmHgTR maxP.88 mmHgTR Vmax: | | 2.17 m/s Upholstery Technician: Altheaticated by: Shirley Estrada Date/Time: 03-10-2017 | | 20:41:40 IMPRESSION: 1. The left ventricle is normal in size, wall thickness and | | systolic function EF 60-65%.2. The diastolic filling pattern indicates impaired | | relaxation consistent with mild dysfunction (Grade I).3. The aortic valve is moderately | | calcified with moderate aortic stenosis and mild regurgitation.4. Mild mitral | | regurgitation with mildly enlarged left atrium.5. Mild tricuspid regurgitation with no | | pulmonary hypertension.6. There is none/trivial pericardial effusion. | |LA Major: 4.34 cm | |EDV(Teich): 43.29 ml | |IVSd: 0.80 cm | |LVIDd: 3.27 cm | |LVPWd: 0.94 cm | |LVOT Area: 2.75 cm2 | |LVOT Diam: 1.87 cm | |%FS: 31.86 % | |EF(Teich): 61.23 % | |ESV(Teich): 16.78 ml | |LVIDs: 2.23 cm | |SV(Teich): 26.51 ml | |RA Major: 4.82 cm | |RV Major: 5.31 cm | |RVIDd: 2.44 cm | |LVEF MOD A2C: 66.15 % | |SV MOD A2C: 51.00 ml | |LVEF MOD A4C: 60.21 % | |SV MOD A4C: 41.64 ml | |EF Biplane: 64.35 % | |LVEDV MOD BP: 76.74 ml | |LVESV MOD BP: 27.35 ml | |LVEDV MOD A2C: 77.09 ml | |LVLd A2C: 7.87 cm | |LVEDV MOD A4C: 69.15 ml | |LVLd A4C: 7.10 cm | |LVESV MOD A2C: 26.09 ml | |LVLs A2C: 6.55 cm | |LVESV MOD A4C: 27.51 ml | |LVLs A4C: 6.20 cm | |LAESV(A-L): 61.30 ml | |LAESV Index (A-L): 34.05 ml/m2 | |LAAs A2C: 18.86 cm2 | |LAESV A-L A2C: 58.87 ml | |LALs A2C: 5.13 cm | |LAAs A4C: 15.91 cm2 | |LAESV A-L A4C: 51.71 ml | |LALs A4C: 4.15 cm | |RAAs: 16.26 cm2 | |RAESV A-L: 43.61 ml | |RAESV MOD: 41.90 ml | |RALs: 5.14 cm | |TAPSE: 2.53 cm | |AR Dec [place]: 1.92 m/s2 | |AR Dec Time: 2130.21 ms | |AR maxP.50 mmHg | |AR PHT: 617.76 ms | |AR Vmax: 4.10 m/s | |AV maxP.07 mmHg | |AV meanP.06 mmHg | |AV Vmax: 2.50 m/s | |AV Vmean: 1.78 m/s | |AV VTI: 54.72 cm | |ARISTIDES Vmax: 1.12 cm2 | |ARISTIDES (VTI): 1.31 cm2 | |AVAI Vmax: 0.00 cm2/m2 | |AVAI (VTI): 0.00 cm2/m2 | |LVOT maxP.22 mmHg | |LVOT meanP.51 mmHg | |LVSI Dopp: 39.83 ml/m2 | |LVSV Dopp: 71.70 ml | |LVOT Vmax: 1.02 m/s | |LVOT Vmean: 0.76 m/s | |LVOT VTI: 26.05 cm | |MV A Isaac: 0.76 m/s | |MV DecT: 290.35 ms | |MV E Isaac: 0.85 m/s | |MV E/A Ratio: 1.11 | |MV PHT: 84.20 ms | |MVA By PHT: 2.61 cm2 | |Septal e': 0.04 m/s | |Septal E/e': 20.23 | |Lateral e': 0.06 m/s | |Lateral E/e': 13.92 | |RAP: 5 mmHg | |RVSP: 23.88 mmHg | |TR maxP.88 mmHg | |TR Vmax: 2.17 m/s | | | |Upholstery Technician: SUZANNE | |Authenticated by: Shirley Hatrman | |Report Date/Time: 03-10-2017 20:41:40 | | | |IMPRESSION: | |1. The left ventricle is normal in size, wall thickness and systolic function EF 60-65%. | |2. The diastolic filling pattern indicates impaired relaxation consistent with mild dysfunc tion (Grade I). | |3. The aortic valve is moderately calcified with moderate aortic stenosis and mild regurgit ation. | |4. Mild mitral regurgitation with mildly enlarged left atrium. | |5. Mild tricuspid regurgitation with no pulmonary hypertension. | |6. There is none/trivial pericardial effusion. | + + documented in this encounter Visit Diagnoses Not on filedocumented in this encounter"
--- OUTSIDE RECORDS SUMMARY | ~2020-02-03 | XMS | Encounter Summary ---
Demographics + + + | Address | [address] | | | [place] [address] | + + + | Home Phone | | + + + | Preferred Language | Unknown | + + + | Marital Status | Single | + + + | Latter-Day Affiliation | 1013 | + + + | Race | White | + + + | Ethnic Group | Not or | + + + Author + + + | Author | [facility] | | | and [place] | + + + | Organization | [facility] | | [...] Team Providers + +------+ + | Care Call Center Coordinator Name | Role | Phone | + +------+ + PCP | Unavailable | + +------+ + Reason for Visit + + + | Reason | Comments | + + + | Medication Refill | | + + + Encounter Details +--------+--------+ + + + | Date | Type | Department | Care Team | Description | +--------+--------+ + + + | 06/07/ | Refill | [facility] | Alicia Gonzáles, | Medication Refill | | 2018 | | CARDIOLOGY [address] | | | | | [place], | [place], | | | | | [place] [address] | [place] [address] | | | | | [phone] | [phone] | | | | | | | | +--------+--------+ + + + Social History + +-------+ [...]
--- OUTSIDE RECORDS SUMMARY | ~2020-02-03 | XMS | Encounter Summary ---
Demographics + + + | Address | [address] | | | [place] [address] | + + + | Home Phone | | + + + | Preferred Language | Unknown | + + + | Marital Status | Single | + + + | Restorationism Affiliation | 1013 | + + + | Race | White | + + + | Ethnic Group | Not or | + + + Author + + + | Author | [facility] | | | and [place] | + + + | Organization | [facility] | | | and [...] Team Providers + +------+ + | Care Bone Grinder Name | Role | Phone | + +------+ + PCP | Unavailable | + +------+ + Reason for Referral Diagnostic/Screening (Routine) +--------+--------+ + + + + | Status | Reason | Specialty | Diagnoses / | Referred By | Referred To | | | | | Procedures | Contact | Contact | +--------+--------+ + + + + | Closed | | Radiology | Diagnoses | [place], | [facility] | | | | | Coronary | MD Alicia | [address] | | | | | artery | [address] | [place], | | | | | disease | [address] | [place] | | | | | involving | [place], | [address] | | | | | [place] | [place] [address] | Phone: | | | | | coronary | Phone: | [phone] | | | | | artery of | [phone] | Fax: | | | | | [place] heart | Fax: | [phone] | | | | | with angina | [phone] | | | | | | pectoris | | | | | | | (HCC) Chest | | | | | | | pain, | | | | | | | unspecified | | | | | | | type | | | | | | | Procedures | | | | | | | ECHO | | | | | | | Complete [place] | | | | | | | ECHO HEART | | | | | | | XTHORACIC,CO | | | | | | | MPLETE W | | | | | | | DOPPLER [place] | | | | | | | ECHO HEART | | | | | | | XTHORACIC,CO | | | | | | | MPLETE, W/O | | | | | | | DOPPLER | | | +--------+--------+ + + + + Reason for Visit Diagnostic/Screening (Routine) +--------+--------+ + + + + | Status | Reason | Specialty | Diagnoses / | Referred By | Referred To | | | | | Procedures | Contact | Contact | +--------+--------+ + + + + | Closed | | Radiology | Diagnoses | [place], | [facility] | | | | | Coronary | MD Alicia | [address] | | | | | artery | [address] | [place], | | | | | disease | [address] | [place] | | | | | involving | [place], | [address] | | | | | [place] | [place] [address] | Phone: | | | | | coronary | Phone: | [phone] | | | | | artery of | [phone] | Fax: | | | | | [place] heart | Fax: | [phone] | | | | | with angina | [phone] | | | | | | pectoris | | | | | | | (HCC) Chest | | | | | | | pain, | | | | | | | unspecified | | | | | | | type | | | | | | | Procedures | | | | | | | ECHO | | | | | | | Complete [place] | | | | | | | ECHO HEART | | | | | | | XTHORACIC,CO | | | | | | | MPLETE W | | | | | | | DOPPLER [place] | | | | | | | ECHO HEART | | | | | | | XTHORACIC,CO | | | | | | | MPLETE, W/O | | | | | | | DOPPLER | | | +--------+--------+ + + + + Encounter Details +--------+ + + + + | Date | Type | Department | Care Team | Description | +--------+ + + + + | 07/15/ | [facility] | [facility] | Alicia Gonzáles, | Coronary artery | | 2019 | Encounter | [facility] [address] | disease involving | | | | [address] [place] | [place], | [place] coronary | | | | [place] [address] | [place] [address] | artery of [place] | | | | [phone] | [phone] | heart with angina | | | | | | pectoris (HCC); | | | | | | Chest pain, | | | | | | unspecified type | +--------+ + + + + Social [...] | 5 | 05/11/19 | | | lisinopril-hydrochlo | mouth Daily. [...] + +--------+ + + + | ECHO COMPLETE | Routin | 07/15/2018 | Coronary artery | Results for this | | | e | 11:00 AM | disease involving | procedure are in the | | | | PDT | [place] coronary | results section. | | | | | artery of [place] | | | | | | heart with angina | | | | | | pectoris (HCC) | | | | | | Chest pain, | | | | | | unspecified type | | + +--------+ + + + documented in this encounter Results ECHO Complete (07/15/2018 11:00 AM PDT) + +--------+ + + + | Component | Value | Ref Range | Performed | Pathologist | | | | | At | Signature | + +--------+ + + + | BASELINE | 115/57 | mmHg | [facility] | | | BLOOD | | | | | | PRESSURE | | | | | + +--------+ + + + | Patient | 161lb | | [facility] | | | Weight | | | | | | (lbs) | | | | | + +--------+ + + + | Patient | 5f4in | | [facility] | | | Height | | | | | + +--------+ + + + | LVIDd | 4.33 | cm | [facility] | | + +--------+ + + + | FS | 47 | % | [facility] | | + +--------+ + + + | LA volume | 77.58 | mL | [facility] | | + +--------+ + + + | Ascending | 3.3 | cm | [facility] | | | aorta | | | | | + +--------+ + + + | Aortic arch | 2.65 | cm | [facility] | | + +--------+ + + + | AV mean | 25.19 | mmHg | [facility] | | | gradient | | | | | + +--------+ + + + | Aortic | 1.22 | cm2 | [facility] | | | Valve Area | | | | | | by | | | | | | Continuity | | | | | | VTI | | | | | + +--------+ + + + | MV mean | 2.94 | mmHg | [facility] | | | gradient | | | | | + +--------+ + + + | MV Area by | 2.54 | cm2 | [facility] | | | P 1/2 | | | | | | method | | | | | + +--------+ + + + | IVRT | 87.02 | msec | [facility] | | + +--------+ + + + | LVOT | 1.98 | cm | [facility] | | | diameter | | | | | + +--------+ + + + | LVOT peak | 127.11 | cm/s | [facility] | | | magdalena | | | | | + +--------+ + + + | LVOT peak | 30.13 | cm | [facility] | | | VTI | | | | | + +--------+ + + + | AV peak magdalena | 340 | cm/s | [facility] | | + +--------+ + + + | AV VTI | 75.99 | cm | [facility] | | + +--------+ + + + | AV peak | 45.00 | mmHg | [facility] | | | gradient | | | | | + +--------+ + + + | MV peak | 7.58 | mmHg | [facility] | | | gradient | | | | | + +--------+ + + + | MV Pressure | 86.52 | msec | [facility] | | | 1/2 time | | | | | + +--------+ + + + | LA Volume | 44 | mL/m2 | [facility] | | | Index | | | | | + +--------+ + + + | AV LVOT | 6.46 | mmHg | [facility] | | | Peak | | | | | | Gradient | | | | | + +--------+ + + + | AV LVOT | 3.7 | mmHg | [facility] | | | Mean | | | | | | Gradient | | | | | + +--------+ + + + | TR Peak | 32 | mmHg | [facility] | | | Gradient | | | | | + +--------+ + + + | TR Velocity | 281.93 | cm | [facility] | | + +--------+ + + + | LV | 7.07 | cm | [facility] | | | Diastolic | | | | | | Length 4C | | | | | + +--------+ + + + | LV Systolic | 9.83 | cm2 | [facility] | | | Area PSAX | | | | | + +--------+ + + + | LV | 75 | % | [facility] | | | Aguilar's | | | | | | Biplane EF | | | | | + +--------+ + + + | AV | 95.31 | msec | [facility] | | | Acceleratio | | | | | | n Time | | | | | + +--------+ + + + | LV ED | 73.13 | ml | [facility] | | | Volume | | | | | | (Aguilar's) | | | | | + +--------+ + + + | LV ED | 41 | ml/m2 | [facility] | | | Volume | | | | | | Index | | | | | + +--------+ + + + | LV ES | 17.82 | ml | [facility] | | | Volume | | | | | + +--------+ + + + | LVOT Mean | 90.9 | cm/s | [facility] | | | Velocity | | | | | + +--------+ + + + | MV A' | 9.58 | cm/s | [facility] | | | Lateral | | | | | | Velocity | | | | | + +--------+ + + + | MV E' | 3.91 | cm/s | [facility] | | | Lateral | | | | | | Velocity | | | | | + +--------+ + + + | MV A' | 6.16 | cm/s | [facility] | | | Septal | | | | | | Velocity | | | | | + +--------+ + + + | MV E' | 4 | cm/s | [facility] | | | Septal | | | | | | Velocity | | | | | + +--------+ + + + | MV | 299.86 | cm/s2 | [facility] | | | Deceleratio | | | | | | n [place] | | | | | + +--------+ + + + | MV | 298.36 | msec | [facility] | | | Deceleratio | | | | | | n Time | | | | | + +--------+ + + + | MV E/A | 1.02 | | [facility] | | | Ratio | | | | | + +--------+ + + + | MV Peak | 88 | cm/s | [facility] | | | A-Wave | | | | | + +--------+ + + + | MV Peak | 89.47 | cm/s | [facility] | | | E-Wave | | | | | + +--------+ + + + | AV Mean | 238.14 | cm/s | [facility] | | | Velocity | | | | | + +--------+ + + + | LA/Aorta | 1.32 | | [facility] | | | Ratio | | | | | + +--------+ + + + | LA Area | 22.43 | cm2 | [facility] | | + +--------+ + + + | LA Systolic | 30.6 | mmHg | [facility] | | | Pressure | | | | | + +--------+ + + + | MV E/E | 22.37 | | [facility] | | | SEPTAL | | | | | + +--------+ + + + | MV E/E | 22.88 | | [facility] | | | LATERAL | | | | | + +--------+ + + + | LA Major | 0.7599 | cm | [facility] | | + +--------+ + + + | LV ES | 10 | ml/m2 | [facility] | | | Volume | | | | | | Index | | | | | + +--------+ + + + | LV Area | 24.96 | cm2 | [facility] | | | Diastolic | | | | | + +--------+ + + + | Aortic Root | 2.66 | cm | [facility] | | | Diameter | | | | | + +--------+ + + + | IVS | 0.98 | cm | [facility] | | | Diastolic | | | | | | Thickness | | | | | | MM | | | | | + +--------+ + + + | LVPW | 1.02 | cm | [facility] | | | Diastolic | | | | | | Thickness | | | | | | MM | | | | | + +--------+ + + + | LV Systolic | 2.3 | cm | [facility] | | | Diameter | | | | | | MM | | | | | + +--------+ + + + | AV Cusp | 1.07 | cm | [facility] | | | Seperation | | | | | | MM | | | | | + +--------+ + + + | LA Systolic | 3.5 | cm | [facility] | | | Diameter | | | | | | MM | | | | | + +--------+ + + + | TAPSE | 3.0 | cm | [facility] | | + +--------+ + + + | LVEF-TTE | 75 | % | [facility] | | | TRANSTHORAC | | | | | | IC ECHO | | | | | + +--------+ + + + | RA PRESSURE | 3 | mmHg | [facility] | | + +--------+ + + + | RVSP | 35 | mmHg | [facility] | | | Estimated | | | | | + +--------+ + + + + + | Specimen | + + | | + + + + + | Narrative | Performed At | + + + | 1. Mild left | [facility] | | atrial dilatation.2. Normal left ventricular size, wall thickness | | | and motion. Preserved left ventricular systolic function. LVEF is | | | 70-75%.3. Grade 1 left ventricular diastolic dysfunction.4. | | | Moderately thickened and calcified trileaflet aortic valve with | | | moderate calcific aortic valve stenosis. Right coronary cusp is | | | immobile. There is a mild to moderate central aortic valve | | | insufficiency.5. 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 There is a trace central mitral valve | | | regurgitation.5. Mild mitral annular calcification.6. Mild | | | tricuspid valve regurgitation.7. Borderline pulmonary hypertension | | | with a peak systolic pressure of 35-40 mmHg.8. Normal IVC with | | | normal respiratory collapse. | | |8. Normal IVC with normal respiratory collapse. 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
--- OUTSIDE RECORDS SUMMARY | ~2020-02-03 | XMS | Encounter Summary ---
Demographics + + + | Address | [address] | | | [place] [address] | + + + | Home Phone | | + + + | Preferred Language | Unknown | + + + | Marital Status | Single | + + + | Confucianist Affiliation | 1013 | + + + | Race | White | + + + | Ethnic Group | Not or | + + + Author + + + | Author | [facility] | | | and [place] | + + + | Organization | [facility] | | | [...] Team Providers + +------+ + | Care Clinical Research Nurse Name | Role | Phone | + +------+ + | Wilson Lin MD | PCP | | + +------+ + Reason for Visit + +--------+ + | Reason | Onset | Comments | | | Date | | + +--------+ + | Appointment | 08/12/ | | | | 2015 | | + +--------+ + Encounter Details +--------+ + + + + | Date | Type | Department | Care Team | Description | +--------+ + + + + | 08/12/ | Telephone | [facility] | Wilson Lin | Appointment | | 2015 | | CARDIOLOGY [address] | [address] | | | | | [place], | [place] | | | | | [place] [address] | [place] [address] | | | | | [phone] | [phone] | | | | | | | [...] this encounter Miscellaneous Notes Telephone Encounter - Sylvie Hedrick - 08/13/2015 2:10 PM PDTCLOSED REFERRAL NUMBER [phone], PER PT HER PCP HAS REFERRED HER TO DR. MANDEL AT [facility] IN [place]. PT R EQUESTS THAT HER NEW PT APPOINTMENT WITH DR. MIRANDA SCHEDULED FOR 08-19-15 BE CANCELLED. documented in this encou nter Plan of Treatment Not on filedocumented as of this encounter Visit Diagnoses Not on filedocumented in this encounter"
--- OUTSIDE RECORDS SUMMARY | ~2020-02-03 | XMS | Encounter Summary ---
Demographics + + + | Address | [address] | | | [place] [address] | + + + | Home Phone | | + + + | Preferred Language | Unknown | + + + | Marital Status | Single | + + + | Evangelical Affiliation | [id number] | + + + | Race | White | + + + | Ethnic Group | Not or | + + + Author + + + | Author | [facility] | | | and [place] | + + + | Organization | [facility] | | | [...] Team Providers + +------+ + | Care Marina Manager Name | Role | Phone | + +------+ + | Wilson Lin MD | PCP | | + +------+ + Reason for Visit + + + | Reason | Comments | + + + | Dizziness | | + + + | Abdominal Pain | | + + + Auth/Cert +--------+--------+ + + + + | Status | Reason | Specialty | Diagnoses / | Referred By | Referred To | | | | | Procedures | Contact | Contact | +--------+--------+ + + + + | | | | Diagnoses | | | | | | | Secondary | | | | | | | hypertension | | | | | | | Chronic | | | | | | | ischemic | | | | | | | heart | | | | | | | disease UGI | | | | | | | bleed | | | | | | | Mixed sleep | | | | | | | apnea | | | | | | | Aortic valve | | | | | | | stenosis, | | | | | | | etiology of | | | | | | | cardiac | | | | | | | valve | | | | | | | disease | | | | | | | unspecified | | | | | | | | | | | | | | GI Bleed | | | | | | | Procedures | | | | | | | EGD | | | +--------+--------+ + + + + Encounter Details +--------+ + + + + | Date | Type | Department | Care Team | Description | +--------+ + + + + | 07/11/ | Hospital | [facility] | Aung Regan | Aortic valve | | 2018 - | Encounter | [facility] | [place] [address] | stenosis, etiology | | | | [address] [place] | [address] [place] | of cardiac valve | | 07/12/ | | [place] [address] | [place] [address] | disease unspecified; | | 2017 | | [phone] | Kadi Lobo MD | Chronic ischemic | | | | | [address] | heart disease; | | | | | [place], [place] | Secondary | | | | | [id number] | hypertension; Mixed | | | | | | sleep apnea; UGI | | | | | | bleed; Acute blood | | | | | | loss anemia; | | | | | | Anastomotic ulcer | | | | | | S/P gastric bypass; | | | | | | Coronary | | | | | | arteriosclerosis in | | | | | | [place] artery | +--------+ + + + + Social [...] + + + | Blood Pressure | 147/68 | 07/12/2017 12:15 PM | | | | | PDT | | + + + + + | Pulse | 60 | 07/12/2017 12:15 PM | | | | | PDT | | + + + + + | Temperature | 36.3 C (97.3 F) | 07/12/2017 11:53 AM | | | | | PDT | | + + + + + | Respiratory Rate | 17 | 07/12/2017 12:15 PM | | | | | PDT | | + + + + + | Oxygen Saturation | 97% | 07/12/2017 12:15 PM | | | | | PDT | | + + + + + | Inhaled Oxygen | - | - | | | Concentration | | | | + + + + + | Weight | 69.2 kg (152 lb 8.9 | 07/11/2017 6:10 PM | | | | oz) | PDT | | + + + + + | Height | 165.1 cm (5' 5") | 07/11/2017 2:20 PM | | | | | PDT | | + + + + + | Body Mass Index | 25.39 | 07/11/2017 2:20 PM | | | | | PDT | | + + + + + documented in this encounter Functional Status + + + [...] + + documented as of this encounter Discharge Summaries Divya Lewis MD - 07/12/2017 4:34 PM PDTFormatting of this note might be differe nt from the original. HOSPITALIST DISCHARGE SUMMARY Admit date: 07/11/2017 14:21 Discharge date: 07/12/2017 16:34 Admitting Physician: Kadi Lobo MD Discharging Physician: Divya Lewis MD Primary Care Provider: Ole Madden DO FINAL DIAGNOSES: Active Hospital Problems Diagnosis Anastomotic ulcer S/P gastric bypass Acute blood loss anemia UGI bleed Chronic ischemic heart disease Aortic valve stenosis Mixed sleep apnea Hypertension Diabetes type 2, controlled REASON FOR ADMISSION: Chief Complaint Patient presents with Dizziness Abdominal Pain HOSPITAL COURSE: Le Rollins is a 72 yr old female with the history of gastric bypass in 2011 and has been taking ASA and Plavix for CAD as well as CVA presented with the weakness as well as pas sing dark stools. She recently moved to the and currently staying in [facility]. She has no lateralizing signs or symptoms. Her last Colonoscopy was about an year ago and was normal other than Diverticulosis. She was noted to have Microcytic and Hypochromic Anemia and was given 3 units and today she underwent an Upper Endoscopy by Dr. Liz and showed the following Schatzki's ring at 35cm. 3 cm hiatal hernia. Patient has a Rou-en-y anatomy. There were 3 ulcer crater at the gastrojejunal anastomosis site with no signs of active bleeding. Th e gastrojejunal anastomosis was patulous. Biopsies were obtained from gastric body for h p ylori. Retroflexion shows a hiatal hernia. The afferent jejunal limb was intubated for 20cm and appeared normal IMPRESSION: 1. schatzki's ring 2. Hiatal hernia 3. Emily-en- y anatomy 4. Gastrojejunal anastomotic ulcer She was given an Iron infusion and she will be Discharged back to her [facility] home She was told to hold the ASA for one week and take the proton pump inhibitor BID for 6 week s. PROCEDURES : Upper Endoscopy by Dr. Liz CONSULTATIONS: GI IMAGING PERFORMED: Ct Head Wo Contrast Result Date: 07/11/[address] 07/11/2017 3:20 PM CLINICAL HISTORY: DIZZINESS ABDOMINAL PAIN MIRELA RISON: CT January 2012 TECHNIQUE: Axial unenhanced images are performed through the head, a long with coronal and sagittal reformations. FINDINGS: Regions of encephalomalacia are now present in the right frontal lobe, extending into the insula, and also in the left parietal lobe, consistent with chronic infarcts. Allowing for beam hardening, issa-white differenti ation is maintained elsewhere. There is mild cerebral atrophy with mild hypoattenuation of the periventricular white matter. The ventricles, brainstem and cerebellum are unremarkable . There is no mass effect, evidence of recent intracranial hemorrhage or extra-axial abnorm ality. Calcified plaque is present in the terminal internal carotid arteries. Hyperostosis frontalis is present. The bones and soft tissues, including the imaged paranasal sinuses, m iddle ear cavities and mastoid air cells, are otherwise unremarkable. IMPRESSION - 1. NO EVIDENCE OF ACUTE INTRACRANIAL DISEASE. 2. CHRONIC RIGHT FRONTAL/INSULAR AND LEFT PARIETAL INFARCTS, NEW FROM IMAGING OF 2011. 3. MILD, GENERALIZED ATROPHY AND PROBABLE CHRONIC, MICR OVASCULAR ISCHEMIC CHANGE OF THE PERIVENTRICULAR WHITE MATTER, IN THE SETTING OF VASCULAR CA LCIFICATION. Images were provided for interpretation on July 11, 2017 at 1530 hours. Result s were finalized at 1610 hours. Dictated and Signed by: Ramo Power MD Electronically sign ed: 07/11/2017 4:07 PM LABORATORY 08/01/2015 04:59 07/11/2017 15:08 07/12/2017 04:48 WBC 5.7 5.2 5.1 RBC COUNT 3.54 (L) 2.80 (L) 3.58 (L) Hgb 10.9 (L) 6.3 (LL) 8.6 (L) Hct, Final 32.3 (L) 20.4 (L) 27.3 (L) MCV 91.3 72.8 (L) 76.3 (L) MCH 30.8 22.4 (L) 24.1 (L) MCHC 33.7 30.8 (L) 31.6 (L) RDW-CV 13.4 16.3 (H) 17.7 (H) Platelet Count 333 307 268 MPV 7.4 7.6 7.9 08/01/2015 05:00 07/11/2017 15:08 07/12/2017 04:48 NA 139 135 (L) 138 K 4.0 4.4 4.1 Chloride 105 103 108 Carbon dioxide 26 26 27 ANION GAP 8 6 3 GLUCOSE 129 (H) 153 (H) 102 BUN 11 13 10 Creatinine 0.69 0.85 0.82 BUN/CREA 15.9 15.3 12.2 ALBUMIN 2.9 (L) 3.0 (L) Total protein 5.3 (L) 5.5 (L) EGFR >60 >60 >60 Calcium 8.5 8.2 (L) 7.9 (L) MG 2.0 ALK PHOS 103 71 ALT (SGPT) 13 11 AST (SGOT) 19 23 BILIRUBIN 0.6 0.5 GLOBULIN 2.4 2.5 FERRITIN 5 (L) IRON 174 (H) TIBC 423 % SAT 41.1 Transferrin 302.3 Vitamin B12 421 Microbiology: Blood No components found for: BCCULT Urine Culture No components found for: URCCULT HOSPITAL COMPLICATIONS: None CONDITION ON DISCHARGE: Improved and stabilized PHYSICAL EXAMINATION: Vitals: 07/12/17 1200 07/12/17 1205 07/12/17 1210 07/12/17 1215 BP: 145/70 136/77 149/70 147/68 Pulse: 60 56 57 60 Resp: 18 9 11 17 Temp: TempSrc: SpO2: 98% 98% 97% 97% Weight: Height: Gen Robyn - alert, cooperative and no distress Head - Normocephalic, without obvious abnormality, atraumatic Eyes - PERRL, conjunctiva/corneas clear, EOM's intact both eyes ENT - mucous membranes moist Neck - supple Lungs - clear to auscultation, no wheezes or rales and unlabored breathing Heart - normal rate, regular rhythm, normal S1, S2, no murmurs, rubs, clicks or gallops Abdomen - soft, non-tender, without masses or organomegaly Extremities - no peripheral edema, no clubbing or cyanosis Skin - no rashes Neurologic - Alert and oriented x 3. CN II-XII intact. ALLERIES ON DISCHARGE: Allergies Allergen Reactions Aripiprazole Bee Venom Clonidine Derivatives Insulin Glargine Insulin Lispro Pioglitazone Hydrochloride Shellfish-Derived Products Statins Patient could not remember which statin caused her problems. She tolerates atorvastatin f ine MEDICATIONS ON DISCHARGE: Discharge Medications New Medications Details ferrous gluconate 324 (38 Fe) MG tablet Take 1 tablet by mouth 2 times daily. aka: FERGON pantoprazole 40 mg tablet Take 1 tablet by mouth 2 times daily (before meals). aka: PROTONIX Unchanged Medications Details acetaminophen 325 mg tablet Take 2 tablets by mouth every 6 hours as needed for Pain. aka: TYLENOL aspirin 81 MG tablet Take 2 tablets by mouth Daily. Start: 07/19/2017 atorvaSTATin 80 MG tablet Take 80 mg by mouth nightly. aka: LIPITOR biotin 5 mg tablet Take 5 mg by mouth Daily. busPIRone 5 mg tablet Take 5 mg by mouth 2 times daily. aka: BUSPAR calcium-vitamin D 500 mg-200 units per tablet Take 1 tablet by mouth 2 times daily. aka: OSCAL clopidogrel 75 mg tablet Take 1 tablet by mouth Daily. aka: PLAVIX Start: 08/06/2017 cyanocobalamin 1000 MCG tablet Take 1,000 mcg by mouth Daily. aka: VITAMIN B-[address] capsule Take 20 mg by mouth Daily. With 60 mg capsule for Total dose of 80mg aka: CYMBALTA DULoxetine [address] capsule Take 60 mg by mouth Daily. With 20mg capsule for total dose of 80 mg aka: CYMBALTA EPINEPHrine auto-injector 0.3 mg/0.3 mL injection Inject 0.3 mLs into the muscle as needed for Anaphylaxis. aka: EPIPEN isosorbide mononitrate 30 mg ER tablet Take 1 tablet by mouth Daily. aka: IMDUR levothyroxine 175 MCG tablet Take 175 mcg by mouth every morning (before breakfast). aka: SYNTHROID lisinopril-hydrochlorothiazide 20-25 MG per tablet Take 1 tablet by mouth Daily. aka: PRINZIDE,ZESTORETIC Magnesium 500 MG tablet Take 500 mg by mouth Daily. metFORMIN 500 mg 24 hr tablet Take 500 mg by mouth Daily (with dinner). aka: GLUCOPHAGE-XR MULTIVITAMIN PO Take 1 tablet by mouth Daily. nitroglycerin 0.[address] 1 tablet under the tongue every 5 minutes as needed for Chest pain. aka: CLAYTONTAT UNABLE TO FIND Med Name: Resmed AirSense 10 autoset CPAP: 5-20cm while sleeping. VOLTAREN 1% Gel Generic drug: diclofenac Apply 1 g topically 2 times daily. PHYSICAL ACTIVITY: As tolerated and resume previous activity DIET: Resume previous and eat small quantities DISPOSITION: To her Nursing Home home FOLLOW UP CARE: Follow up with PCP in [address] Liz in 2-3 weeks PENDING STUDIES: None CODE STATUS and GOALS OF CARE Code status at discharge: Full code Greater than 30 minutes was spent on discharge and coordination of post hospital care. Divya Lewis 07/12/17 16:34 documented in t his encounter Medications at Time of Discharge + [...] into | 1 each | 1 | 03/19/20 | | | auto-injector 0.3 | the [...] MG | Take 2 tablets by | 56 | 0 | 07/20/19 | | | tablet | mouth Daily. | tablet | | 18 | 9 | + + + +---------+ + + | atorvaSTATin | Take 80 mg by mouth | | 0 | | | | (LIPITOR) 80 MG | nightly. | | | | 9 | | tablet | | | | | | + + + +---------+ + + | biotin 5 mg tablet | Take 5 mg by mouth | | 0 | | | | | Daily. | | | | 8 | + + + +---------+ + + | busPIRone (BUSPAR) | Take 5 mg by mouth 2 | | 0 | | | | 5 mg tablet | times daily. | | | | 9 | + + + +---------+ + + | clopidogrel | Take 1 tablet by | 100 | 0 | 08/07/19 | | | (PLAVIX) 75 mg | mouth Daily. | tablet | | 18 | 8 | | tablet | | | | | | + + + +---------+ + + | diclofenac | Apply 1 g topically | | 0 | | | | (VOLTAREN) 1% GEL | 2 times daily. | | | | 9 | + + + +---------+ + + | ferrous gluconate | Take 1 tablet by | 60 | 1 | 07/13/19 | | | (FERGON) 324 (38 Fe) | mouth 2 times daily. | tablet | | 18 | 8 | | MG tablet | | | | | | [...] | mouth Daily. | | | | 9 | | rothiazide | | | | [...] | | 0 | | | | (GLUCOPHAGE-XR) 500 | Daily (with | | | | 9 | | mg 24 hr tablet | dinner). | | | | | [...] + documented as of this encounter Progress Notes Brigette Carrero, PharmD - 07/12/2017 3:12 PM PDT PHARMACY SERVICES: ADMISSION MEDICATION REVIEW Le Rollins is a 72 y.o. female admitted on 07/11/17. Patient is a reliable historian. Location of Patient when reviewed: ED X Medical Floor Patient s prior to admit medication and over the counter (OTC) medications/herbal supplem ents list obtained from: X Verbal interview X Patient able to recall SOME Name, strength, and directions X Pharmacy list names: [facility] [place] [employer] (Prescription Monitoring Program) X [employer] insurance reported information X Care Everywhere X Outside Information Vaccines up to date? Yes No Unsure Influenza X Pneumococcal X Tdap X Shingles X Noted medications discrepancies or medication-related issues: Allergy Alerts: Clarified statin allergy with patient. States she has some side effects to " one of the major statins" (could not remember the name or what exactly the side effects were) but state s she has been on Lipitor (atorvastatin) for a while now and tolerates it just fine. Dosage change: Medication: Prior to Admission Sig: Correct sig: multivitamin By mouth 1 tab by mouth daily Medication added: Medication: Prior to Admission Sig: Aspirin 81mg 2 tabs by mouth daily Calcium- vitamin D 500-200 mg 1 tab by mouth twice daily Duloxetine 20mg 1 capsule by mouth daily with 60mg capsule for total dose of 80 mg Duloxetine 60mg 1 capsule by mouth daily with 20 mg capsule for total dose of 80 mg Levothyroxine 175 mcg 1 tab by mouth daily New dose prescribed by Dr. Madden. Started last week Magnesium 500mg 1 tab by mouth daily Metformin XR 500mg 1 tab by mouth daily with dinner Diclofenac 1% gel 1g topically twice daily Removed therapy: Medication: Prior to Admission Sig: Reason for Removal: Aspirin 325mg 81mg by mouth daily Incorrect- changed to correct strength and sig Calcium citrate - vitamin d 315-200 1 tab by mouth twice daily Incorrect- changed to correc t strength Cholecalciferol 50,000 units 1 tab by mouth weekly Therapy complete Duloxetine 30mg 80mg by mouth daily Incorrect- changed to correct strength and sig Levothyroxine 150 mcg 137 mcg by mouth daily Therapy complete- dose adjustment Magnesium 200mg 1 tab by mouth daily Therapy complete Metformin 500mg 1 tab by mouth twice daily Incorrect- changed to correct formulation and sig Other: Patient states she needs a new RX for an EpiPen. She said that hers and she thre w it out and does not have a current rx Patient states she just moved to [place] last week and established care with Dr. Rodney kim. Previously lived in [place] [facility] possible [employer] medication list after pharmacy review: PT REPORTED TAKING NOT TAKING Medication Sig Last Dose Dispense Doc. Provider acetaminophen (TYLENOL) 325 mg tablet Take 2 tablets by mouth every 6 hours as needed for Pain. Taking 100 tablet Aidan Hernandez MD aspirin 81 MG tablet Take 162 mg by mouth Daily. Taking 56 tablet None atorvaSTATin (LIPITOR) 80 MG tablet Take 80 mg by mouth nightly. Taking Historical Briseida giles MD biotin 5 mg tablet Take 5 mg by mouth Daily. Taking Historical ProviderMD busPIRone (BUSPAR) 5 mg tablet Take 5 mg by mouth 2 times daily. Taking Historical Briseida giles MD calcium-vitamin D (OSCAL) 500 mg-200 units per tablet Take 1 tablet by mouth 2 times daily . Taking Historical ProviderMD clopidogrel (PLAVIX) 75 mg tablet Take 1 tablet by mouth Daily. Taking 100 tablet Aidan hazel MD cyanocobalamin (VITAMIN B-12) 1000 MCG tablet Take 1,000 mcg by mouth Daily. Taking Histo rical MD Ángela diclofenac (VOLTAREN) 1% GEL Apply 1 g topically 2 times daily. Taking Historical Roger armstrong MD DULoxetine (CYMBALTA) [address] capsule Take 20 mg by mouth Daily. With 60 mg capsule for T otal dose of 80mg Taking Girma Motta MD DULoxetine (CYMBALTA) [address] capsule Take 60 mg by mouth Daily. With 20mg capsule for to dustin dose of 80 mg Taking Girma Motta MD EPINEPHrine (EPIPEN) 0.3 mg/0.3 mL injection Inject 0.3 mg into the muscle as needed for A naphylaxis. Girma Motta MD isosorbide mononitrate (IMDUR) 30 mg ER tablet Take 1 tablet by mouth Daily. Taking 30 tab let John Mark MD levothyroxine (SYNTHROID) 175 MCG tablet Take 175 mcg by mouth every morning (before break fast). Taking Girma Motta MD lisinopril-hydrochlorothiazide (PRINZIDE,ZESTORETIC) 20-25 MG per tablet Take 1 tablet by mouth Daily. Taking Girma Motta MD Magnesium 500 MG tablet Take 500 mg by mouth Daily. Taking Girma Motta MD metFORMIN (GLUCOPHAGE-XR) 500 mg 24 hr tablet Take 500 mg by mouth Daily (with dinner). Todd Motta MD Multiple Vitamins-Minerals (MULTIVITAMIN PO) Take 1 tablet by mouth Daily. Taking Pablo garret MD Ángela nitroglycerin (NITROSTAT) 0.[address] 1 tablet under the tongue every 5 minutes as needed for Chest pain. Taking 25 tablet Aidan Hernandez MD UNABLE TO FIND Med Name: Resmed AirSense 10 autoset CPAP: 5-20cm while sleeping. Taking H istorical MD Ángela Medication review performed and electronically signed by Joanne Rollins, Admissions Counselor 2017 12:44 Reviewed by Brigette Carrero, PharmSrinath 07/12/2017 15:08 documented in thi s encounter H&P Notes Venkatesh Liz MD - 07/12/2017 11:35 AM PDTSURGICAL INTERIM HISTORY & PHYSICAL UPDATE Pt. Name/Age/: Le Rollins 72 y.o. 1945 Date of admission: 07/11/2017 The current H&P was reviewed. The patient was reexamined. Re-evaluation of the patient co nfirms the necessity for the scheduled procedure. No change has occurred in the patient s condition since the H&P was completed less than 30 days ago. VERIFICATION OF CONSENT (PARQ) The patient counseled regarding the procedure, its indications, risks, potential complicat ions and alternatives. Any questions were answered. Consent was obtained. Electronically signed by: Venkatesh Liz MD, 07/12/2017 11:35 [facility] Electronically signed by Venkatesh Liz MD at 06/24 11:35 AM Venkatesh Quigley MD - 07/11/2017 6:15 PM PDT GASTROENTEROLOGY CONSULT NOTE [facility] Date of Admission: 07/11/2017 Hospital Day #: LOS: 0 days Assessment 1.suspected upper GI bleed 2. Profound microcytic anemia 3. h/o CAD_ stent 2015 on dual aspirin/plavix Moderately severe Aortic stenosis 4. CVA, L hemiparesis, recurrent TIA 5. NEHEMIAH Recommendations: 1. protonix IV BID 2. Transfuse to maintain hemoglobin > 10 given her cardiac history 3. EGD in AM - evaluate for marginal ulcer, erosive esophagitis, HPI 72 yo female, with h/o RNY gastric bypass, CAD, CVA, on aspirin/plavix/NSAID - present ed to ED with several weeks history of weakness, dizziness. Remote h/o melena ~ 2 weeks ag o with some vague upper abdominal pain. She denies BRBPR, recent unintentional weight loss. Labs on arrival hemoglobin 6.9, mcv 72 ( hemoglobin 7.9 on 07/01/17 [facility]) Patient was started on IV protonix and transfused 3 unit PRBC She was also started on ceftriaxone for pyuria. Note that patient has not had signs of rebleed for past week. Active Problems: Principal Problem: UGI bleed Active Problems: Mixed sleep apnea Hypertension Diabetes type 2, controlled Aortic valve stenosis Chronic ischemic heart disease Current Medications: atorvaSTATin 80 mg Oral Nightly busPIRone 5 mg Oral BID [START ON 07/12/2017] cefTRIAXone 1 g Intravenous Daily docusate sodium 100 mg Oral BID DULoxetine 80 mg Oral Daily insulin lispro 0-12 Units Subcutaneous 4x Daily WC and HS isosorbide mononitrate 30 mg Oral Daily levothyroxine 137 mcg Oral QAM AC pantoprazole 40 mg Intravenous BID polyethylene glycol 17 g Oral Daily sodium chloride 0.9% with KCl 20 mEq/L Allergies Allergen Reactions Aripiprazole Bee Venom Clonidine Derivatives Insulin Glargine Insulin Lispro Pioglitazone Hydrochloride Shellfish-Derived Products Statins Vital Signs: Vitals: 07/11/17 1630 07/11/17 1658 07/11/17 1716 07/11/17 1740 BP: 100/48 Pulse: 59 56 67 62 Resp: 18 15 15 16 Temp: TempSrc: SpO2: 100% 100% 100% 98% Weight: Height: I's&O's: Date 07/10/17 0701 - 07/11/17 0700(Not Admitted) 07/11/17 07 - 07/12/17 0700 Shift 1194-6063 7486-5418 24 Hour Total 5994-0062 7534-0563 24 Hour Total I N T A K E IV Piggyback 50 50 Volume (mL) (cefTRIAXone (ROCEPHIN) 1 g in sodium chloride 0.9% 50 mL IVPB) 50 50 Shift Total (mL/kg) 50 (0.7) 50 (0.7) O U T P U T Shift Total (mL/kg) NET 50 50 Weight (kg) 72.5 72.5 72.5 Physical Exam: General Appearance: Alert, oriented. No apparent distress. HENT: Pale, sclera non-icteric, conjunctiva clear, EOM's ntact. Moist mucous membranes, n ormal oropharyx Neck: No cervical lymphadenopathy, no thyromegaly Lungs: Clear to auscultation, without wheezes, crackles. Normal respiratory effort. Heart: Regular rate and rhythm, 2/6 murmur RUSB Abdomen: Cholecystectomy scar, Soft, tender epigastrium, non-distended, bowel sounds presen t and normal, no masses or hepatosplenomegaly. Extremities: No clubbing, cyanosis or edema Neurologic: The patient is oriented times 3, moves all extremities voluntarily. Skin: No rashes, lesions or ulcers. Psych: Normal affect, mood and judgement Labs data: Recent Labs Lab 07/11/17 1508 WBC 5.2 HGB 6.3* HCT 20.4* PLT 307 Recent Labs Lab 07/11/17 1508 NA 135* K 4.4 CL 103 CO2 26 BUN 13 CREA 0.85 CALCIUM 8.2* AST 23 ALT 11 ALBUMIN 3.0* Diagnostic Studies: Ct Head Wo Contrast Result Date: 07/11/[address] 07/11/2017 3:20 PM CLINICAL HISTORY: DIZZINESS ABDOMINAL PAIN MIRELA RISON: CT January 2012 TECHNIQUE: Axial unenhanced images are performed through the head, a long with coronal and sagittal reformations. FINDINGS: Regions of encephalomalacia are now present in the right frontal lobe, extending into the insula, and also in the left parietal lobe, consistent with chronic infarcts. Allowing for beam hardening, issa-white differenti ation is maintained elsewhere. There is mild cerebral atrophy with mild hypoattenuation of the periventricular white matter. The ventricles, brainstem and cerebellum are unremarkable . There is no mass effect, evidence of recent intracranial hemorrhage or extra-axial abnorm ality. Calcified plaque is present in the terminal internal carotid arteries. Hyperostosis frontalis is present. The bones and soft tissues, including the imaged paranasal sinuses, m iddle ear cavities and mastoid air cells, are otherwise unremarkable. IMPRESSION - 1. NO EVIDENCE OF ACUTE INTRACRANIAL DISEASE. 2. CHRONIC RIGHT FRONTAL/INSULAR AND LEFT PARIETAL INFARCTS, NEW FROM IMAGING OF 2011. 3. MILD, GENERALIZED ATROPHY AND PROBABLE CHRONIC, MICR OVASCULAR ISCHEMIC CHANGE OF THE PERIVENTRICULAR WHITE MATTER, IN THE SETTING OF VASCULAR CA LCIFICATION. Images were provided for interpretation on July 11, 2017 at 1530 hours. Result s were finalized at 1610 hours. Dictated and Signed by: Ramo Power MD Electronically sign ed: 07/11/2017 4:07 PM Venkatesh Liz MD 07/11/2017 ewcomb, Anuradha Machuca MD - 07/11/2017 4:40 PM PDTFormatting of this note might be different from the origi nal. [facility] [place] HOSPITALIST HISTORY & PHYSICAL Patient: Le Rollins : 1945: Age: 72 y.o. MedRec: [id number] Admission date: 07/11/2017 Hospital day # : 0 Physician author: Kadi Lobo MD Today: 07/11/2017 CHIEF COMPLAINT: Dizzy with blurred vision HISTORY OF PRESENT ILLNESS: This 72 yr old female patient presents with weakness, dizziness and reports of low blood le vels. She had a dark "sticky" stool a few days ago. She is very concerned about a possible Stroke, but no lateralizing symptoms. Taking ASA and Plavix She tells me: Upper endoscopy in [facility] 2010 before the gastric Bypass Procedure (R ous en Y) that she had there in 2011 (all was fine that she knows of) A year later, she draper d a "triple hernia" (she points to her upper abd) that was repaired there also. (Her memory had the dates wrong, records in soft chart) She had colonoscopy about a year ago in [place] normal by her recall except for diverticu lae. Then ASA and Plavix for CAD 2 years ago EPIGASTRIC PAIN for about a month at least. Black sticky stools 2 weeks ago Moved from [place] to [facility] 3-4 weeks ago Loves it there. Also L hemiparesis with right CVA and R carotid stent 2015 In ER HR 57 109/48 RR 17 afebrile At 98.1 Pale diffusely weak H/H 6.3/20.4 Microcytic WB C 5,200 Na 135 Glucose 153 Alb 3.[address] normal ECG Last admit 07/26/2015 to 07/28/2015 NSTEMI with PCI 07/27/15 PAST MEDICAL and SURGICAL HISTORY: Past Medical History: Diagnosis Date Asthma CVA (cerebral vascular accident) (HCC) 09/2015 DDD (degenerative disc disease), cervical 02/08/2012 Diabetes type 2, controlled ([facility]) Off all medications since surgery Fibromyalgia Hypertension Mixed sleep apnea Murmur, cardiac Myocardial infarction 07/2015 Numbness and tingling in right hand 02/08/2012 Obesity NEHEMIAH (obstructive sleep apnea) Stroke (HCC) Asymptomatic - noted on CT scan in distant past Past Surgical History: Procedure Laterality Date APPENDECTOMY 1958 CARDIAC CATHERIZATION N/A 07/27/2015 Procedure: CV DIAGNOSTIC CARDIAC CATH; Surgeon: Иван Kaur MD; Location: [facility] CARDIO VASCULAR LAB CHOLECYSTECTOMY 1988 GASTRIC BYPASS SURGERY 2011 HYSTERECTOMY, TOTAL ABDOMINAL 1973 right carotid stent 10/09 right knee arthroscopy 1989 THYROIDECTOMY 2004 THYROIDECTOMY, PARTIAL 1985 TONSILLECTOMY AND ADENOIDECTOMY 1950 TOTAL KNEE ARTHROPLASTY Right 07/16/2015 Procedure: Right Total Knee Arthroplasty; Surgeon: Jordin Fernandez MD; Location: [facility] MAIN OR UVULOPALATOPHARYGOPLASTY 1987 FAMILY HISTORY: family history includes Diabetes in her brother; Heart disease in her brother and father; O ther (see comment) in her son. A son of Leukemia SOCIAL HISTORY: reports that she has never smoked. She has never used smokeless tobacco. She reports that she drinks alcohol. She reports that she does not use drugs. Moved from [place] to [facility] 3-4 weeks ago Loves it there. Son is a Pancho ceman in [place]. REVIEW OF SYSTEMS: A complete 10 system ROS was done and recorded in the HPI. HOME MEDICATIONS: PT REPORTED TAKING NOT TAKING Medication Sig Last Dose Dispense Doc. Provider acetaminophen (TYLENOL) 325 mg tablet Take 2 tablets by mouth every 6 hours as needed for Pain. 100 tablet Aidan Hernandez MD aspirin 325 mg tablet Take 81 mg by mouth Daily. 1 pill daily 56 tablet Aidan Hernandez MD atorvaSTATin (LIPITOR) 80 MG tablet Take 80 mg by mouth nightly. Historical Provider, biotin 5 mg tablet Take 5 mg by mouth Daily. Historical Provider, busPIRone (BUSPAR) 5 mg tablet Take 5 mg by mouth 2 times daily. Historical ProviderMD calcium citrate-vitamin D (CALCIUM + D) 315 mg-200 units per tablet Take 1 tablet by mouth 2 times daily. Historical Provider, Cholecalciferol (VITAMIN D3) 39648 units TABS Take 50,000 Units by mouth Once a week. Sc storical ProviderMD clopidogrel (PLAVIX) 75 mg tablet Take 1 tablet by mouth Daily. Taking 100 tablet Aidan hazel MD cyanocobalamin (VITAMIN B-12) 1000 MCG tablet Take 1,000 mcg by mouth Daily. Historical ProviderMD DULoxetine (CYMBALTA) [address] capsule Take 80 mg by mouth Daily. Historical ProviderEnrique EPINEPHrine (EPIPEN) 0.3 mg/0.3 mL injection Inject 0.3 mg into the muscle as needed for A naphylaxis. Historical ProviderMD isosorbide mononitrate (IMDUR) 30 mg ER tablet Take 1 tablet by mouth Daily. 30 tablet Irena Mark MD levothyroxine (SYNTHROID, LEVOTHROID) 150 mcg tablet Take 137 mcg by mouth every morning ( before breakfast). Taking Historical ProviderMD lisinopril-hydrochlorothiazide (PRINZIDE,ZESTORETIC) 20-25 MG per tablet Take 1 tablet by mouth Daily. Taking Historical ProviderMD Magnesium 200 MG TABS Take by mouth. Historical ProviderMD metFORMIN (GLUCOPHAGE) 500 mg tablet 1 pill twice daily starting on 07/29/2015 Taking 60 tab let Aidan Hernandez MD Multiple Vitamins-Minerals (MULTIVITAMIN PO) Take by mouth. Historical Provider, nitroglycerin (NITROSTAT) 0.[address] 1 tablet under the tongue every 5 minutes as needed for Chest pain. 25 tablet Aidan Hernandez MD UNABLE TO FIND Med Name: Resmed AirSense 10 autoset CPAP: 5-20cm while sleeping. Histori garret MD Ángela ALLERGIES: Allergies Allergen Reactions Aripiprazole Bee Venom Clonidine Derivatives Insulin Glargine Insulin Lispro Pioglitazone Hydrochloride Shellfish-Derived Products Statins VITAL SIGNS: Temp: 36.7 C (98.1 F), Pulse: 57, Resp: 15, BP: 119/51, SpO2 100 % on room air at flow rate L/min Temp Min: 36.7 C (98.1 F) Max: 36.7 C (98.1 F) Weight: 72.5 kg (159 lb 13.3 oz) PHYSICAL EXAMINATION: Constitutional Pale but looks comfortable with make up done well and remarkable memory for her medical Hx considering her previous CVA Eye Pupils No conjunctivitis nor scleral icterus Neck No adenopathy, thyromegaly nor masses Cardiac Harsh squeaky murmur 3/6 upper sternal borders transmitted to both carotids Lungs perfectly clear Abdomen TENDER in epigastrium and RUQ also over bladder + BS, Soft, , no HSM nor masses Psych Mood and affect normal Very pleasant Oriented to name, date (month, year) and place Neuro remarkably normal speech and coordination considering her previous CVA HX DIAGNOSTIC STUDIES: Lab results last 24 hours Recent Results (from the past 24 hour(s)) POC Glucose Collection Time: 07/11/17 14:20 Result Value Ref Range Glucose, POC 192 (H) 70 - 109 mg/dL Urinalysis With Microscopic Collection Time: 07/11/17 14:54 Result Value Ref Range COLOR Yellow Light Yellow, Yellow, Straw CLARITY Hazy (A) Clear PH UA 7.0 5.0 - 8.0 Specific [place] 1.016 1.001 - 1.030 PROTEIN UA Negative Negative BLOOD UA Negative Negative GLUCOSE UA Negative Negative KETONES UA Negative Negative BILIRUBIN UA Negative Negative NITRITE UA Negative Negative LEUKOCYTES ESTERASE UA Large (A) Negative UROBILINOGEN UA Negative 0.2 mg/dL, 1.0 mg/dL, Negative WBC UA >100 (A) 0 - 2 /HPF WBC CLUMPS UA Few (A) None Seen /HPF RBC UA 5-10 (A) 0 - 2 /HPF SQUAMOUS EPITHELIAL UA 50-100 (A) 0 - 2 /LPF BACTERIA UA 4+ (A) Negative /HPF MUCUS UA Present (A) Negative /LPF HYALINE CASTS UA 2-5 (A) 0 - 2 /LPF CBC with Differential Collection Time: 07/11/17 15:08 Result Value Ref Range WBC 5.2 4.0 - 11.0 K/uL Hgb 6.3 (LL) 11.5 - 16.0 g/dL Hct 20.4 (L) 34.0 - 47.0 % MCV 72.8 (L) 83.0 - 101.0 fL MCH 22.4 (L) 28.0 - 35.0 pg Platelet Count 307 140 - 440 K/uL Comprehensive Metabolic Panel Collection Time: 07/11/17 15:08 Result Value Ref Range NA 135 (L) 136 - 149 mmol/L K 4.4 3.5 - 5.1 mmol/L CL 103 98 - 109 mmol/L CO2 26 24 - 31 mmol/L ANION GAP 6 3 - 16 mmol/L GLUCOSE 153 (H) 70 - 109 mg/dL BUN 13 7 - 18 mg/dL Creatinine, Serum/Plasma 0.85 0.60 - 1.30 mg/dL eGFR if not >60 >=60 mL/min/1.73m2 CALCIUM 8.2 (L) 8.3 - 10.5 mg/dL ALBUMIN 3.0 (L) 3.2 - 5.0 g/dL BILIRUBIN TOTAL 0.5 0.1 - 1.5 mg/dL Total protein 5.5 (L) 6.0 - 7.8 g/dL AST 23 10 - 42 U/L ALT 11 6 - 45 U/L ALK PHOS 71 40 - 110 U/L GLOBULIN 2.5 2.1 - 3.8 g/dL Albumin/Globulin ratio 1.2 0.8 - 2.0 BUN/CREA 15.3 07/11/[address] 07/11/2017 1. NO EVIDENCE OF ACUTE INTRACRANIAL DISEASE. 2. CHRONIC RIGHT FRONTAL/INSULAR AND LEFT PARIETAL INFARCTS, NEW FROM IMAGING OF 2011. 3. MILD, GENERALIZED ATROPHY AND PROBABLE CHRONIC, MICROVASCULAR ISCHEMIC CHANGE OF THE PE RIVENTRICULAR WHITE MATTER, IN THE SETTING OF VASCULAR CALCIFICATION. I reviewed imaging EKG Results (I reviewed EKG) I reviewed and summarized old records ASSESSMENT: Principal Problem: UGI bleed Active Hospital Problems Diagnosis UGI bleed Chronic ischemic heart disease Aortic valve stenosis Mixed sleep apnea Hypertension Diabetes type 2, controlled Resolved Hospital Problems Diagnosis No resolved problems to display. # UGI bleed Now getting IV Protonix Ceftriaxone (also for her UTI) and 2 u prbc's ASA and Plavix on hold Dr. Liz of GI is aware Will be on clears and laxatives Probably needs iron infusion B12 Iron, Transferrin and ferritin ordered # Cardiac Sees [facility] in [place] Wants to see Cardiol for F/U in [place] Last chest pain episode about 2 months ago she says, resolved with no change in meds MODERATE AORTIC STENOSIS: Careful with IV fluids Volume status ideal right now Cardiac cath 07/27/15 1. Moderate obstructive coronary artery disease with 90% stenosi of the mid OMB2 2. There is a right dominate circulation. 3. Normal LV systolic function with an EF of 70% 4. Systemic blood pressure is mildly elevated. 5. There was successful hemostasis with a TR hemostatic band. 6. NSTEMI due to subtotal occlusion of the OMB2. Followed by 1- non-ST elevation myocardial infarction secondary to subtotal occlusion of the OMB 2 stat us post precipitous coronary intervention with a 2.5 12 mm PROMUS IGNACIA. 2- negative FFR to the mid RCA.with an FFR: 0.86 3- nonobstructive coronary artery disease in the LAD territory. rec's: Plavix and ASA with IMDUR to manage residual CAD in a acute marginal branch from RCA . Last ECHO 07/25/16 1. Normal LV size and systolic function with LVEF 70%. 2. Aortic valve sclerosis with mild to moderate stenosis and mild insufficiency. 3. Mild pulmonary systolic hypertension. 4. Compared to patient's prior study of one year prior, no significant changes are noted. # UTI With symptoms of Urinary frequency lately C&S ordered and on Ceftriaxone now # Diabetes On metformin which is on hold I ordered SSI # S/P Gastric Bypass with risks for vitamin deficiency and other complications Records from [facility] Her usual vitamins are on hold Nut consult requested # Sleep apnea and yes, she uses her device but needs to get it here # HTN Not evident yet and her Lisinopril is on hold # This is NOT SEPSIS UGI bleed explains her signs and symptoms more completely Code Status Full code No documents Medical Decision Maker patient DVT Prophylaxis SCD's CMS Documentation I expect this patient will be hospitalized for greater than 2-midnights and expect the post -hospital plan to be discharge to home or to an adult foster home. Electronically signed by: Kadi Lobo MD 07/11/2017 16:46 [facility] This Assessment required over 75 minutes of review of patient's symptoms, exam, labs, image s, and discussion with the care team and other physicians [place] [id number]. documented in this encounter Consult Notes Venkatesh Liz MD - 07/11/2017 6:15 PM PDT [facility] Date of Admission: 07/11/2017 Hospital Day #: LOS: 0 days Assessment 1.suspected upper GI bleed 2. Profound microcytic anemia 3. h/o CAD_ stent 2016 on dual aspirin/plavix Moderately severe Aortic stenosis 4. CVA, L hemiparesis, recurrent TIA 5. NEHEMIAH Recommendations: 1. protonix IV BID 2. Transfuse to maintain hemoglobin > 10 given her cardiac history 3. EGD in AM - evaluate for marginal ulcer, erosive esophagitis, HPI 72 yo female, with h/o RNY gastric bypass, CAD, CVA, on aspirin/plavix/NSAID - present ed to ED with several weeks history of weakness, dizziness. Remote h/o melena ~ 2 weeks ag o with some vague upper abdominal pain. She denies BRBPR, recent unintentional weight loss. Labs on arrival hemoglobin 6.9, mcv 72 ( hemoglobin 7.9 on 07/01/17 [facility]) Patient was started on IV protonix and transfused 3 unit PRBC She was also started on ceftriaxone for pyuria. Note that patient has not had signs of rebleed for past week. Active Problems: Principal Problem: UGI bleed Active Problems: Mixed sleep apnea Hypertension Diabetes type 2, controlled Aortic valve stenosis Chronic ischemic heart disease Current Medications: atorvaSTATin 80 mg Oral Nightly busPIRone 5 mg Oral BID [START ON 07/12/2017] cefTRIAXone 1 g Intravenous Daily docusate sodium 100 mg Oral BID DULoxetine 80 mg Oral Daily insulin lispro 0-12 Units Subcutaneous 4x Daily WC and HS isosorbide mononitrate 30 mg Oral Daily levothyroxine 137 mcg Oral QAM AC pantoprazole 40 mg Intravenous BID polyethylene glycol 17 g Oral Daily sodium chloride 0.9% with KCl 20 mEq/L Allergies Allergen Reactions Aripiprazole Bee Venom Clonidine Derivatives Insulin Glargine Insulin Lispro Pioglitazone Hydrochloride Shellfish-Derived Products Statins Vital Signs: Vitals: 07/11/17 1630 07/11/17 1658 07/11/17 1716 07/11/17 1740 BP: 100/48 Pulse: 59 56 67 62 Resp: 18 15 15 16 Temp: TempSrc: SpO2: 100% 100% 100% 98% Weight: Height: I's&O's: Date 07/10/17 07 - 07/11/17 0700(Not Admitted) 07/11/17 07 - 07/12/17 0700 Shift [id number] 5886-2406 24 Hour Total 8071-4089 5591-2319 24 Hour Total I N T A K E IV Piggyback 50 50 Volume (mL) (cefTRIAXone (ROCEPHIN) 1 g in sodium chloride 0.9% 50 mL IVPB) 50 50 Shift Total (mL/kg) 50 (0.7) 50 (0.7) O U T P U T Shift Total (mL/kg) NET 50 50 Weight (kg) 72.5 72.5 72.5 Physical Exam: General Appearance: Alert, oriented. No apparent distress. HENT: Pale, sclera non-icteric, conjunctiva clear, EOM's ntact. Moist mucous membranes, n ormal oropharyx Neck: No cervical lymphadenopathy, no thyromegaly Lungs: Clear to auscultation, without wheezes, crackles. Normal respiratory effort. Heart: Regular rate and rhythm, 2/6 murmur RUSB Abdomen: Cholecystectomy scar, Soft, tender epigastrium, non-distended, bowel sounds presen t and normal, no masses or hepatosplenomegaly. Extremities: No clubbing, cyanosis or edema Neurologic: The patient is oriented times 3, moves all extremities voluntarily. Skin: No rashes, lesions or ulcers. Psych: Normal affect, mood and judgement Labs data: Recent Labs Lab 07/11/17 1508 WBC 5.2 HGB 6.3* HCT 20.4* PLT 307 Recent Labs Lab 07/11/17 1508 NA 135* K 4.4 CL 103 CO2 26 BUN 13 CREA 0.85 CALCIUM 8.2* AST 23 ALT 11 ALBUMIN 3.0* Diagnostic Studies: Ct Head Wo Contrast Result Date: 07/11/[address] 07/11/2017 3:20 PM CLINICAL HISTORY: DIZZINESS ABDOMINAL PAIN MIRELA RISON: CT January 2012 TECHNIQUE: Axial unenhanced images are performed through the head, a long with coronal and sagittal reformations. FINDINGS: Regions of encephalomalacia are now present in the right frontal lobe, extending into the insula, and also in the left parietal lobe, consistent with chronic infarcts. Allowing for beam hardening, issa-white differenti ation is maintained elsewhere. There is mild cerebral atrophy with mild hypoattenuation of the periventricular white matter. The ventricles, brainstem and cerebellum are unremarkable . There is no mass effect, evidence of recent intracranial hemorrhage or extra-axial abnorm ality. Calcified plaque is present in the terminal internal carotid arteries. Hyperostosis frontalis is present. The bones and soft tissues, including the imaged paranasal sinuses, m iddle ear cavities and mastoid air cells, are otherwise unremarkable. IMPRESSION - 1. NO EVIDENCE OF ACUTE INTRACRANIAL DISEASE. 2. CHRONIC RIGHT FRONTAL/INSULAR AND LEFT PARIETAL INFARCTS, NEW FROM IMAGING OF 2011. 3. MILD, GENERALIZED ATROPHY AND PROBABLE CHRONIC, MICR OVASCULAR ISCHEMIC CHANGE OF THE PERIVENTRICULAR WHITE MATTER, IN THE SETTING OF VASCULAR CA LCIFICATION. Images were provided for interpretation on July 11, 2017 at 1530 hours. Result s were finalized at 1610 hours. Dictated and Signed by: Ramo Power MD Electronically sign ed: 07/11/2017 4:07 PM Venkatesh Liz MD 07/11/2017 documented in this encounter ED Notes Aung Regan MD - 07/11/2017 2:32 PM PDT History Chief Complaint Patient presents with Dizziness Abdominal Pain The patient presents with weakness, dizziness and reports of low blood levels. She had a d ark "sticky" stool a few days ago. Labs are not accessable via [employer]. Previous Medications ACETAMINOPHEN (TYLENOL) 325 MG TABLET Take 2 tablets by mouth every 6 hours as needed f or Pain. ASPIRIN 325 MG TABLET Take 81 mg by mouth Daily. 1 pill daily ATORVASTATIN (LIPITOR) 80 MG TABLET Take 80 mg by mouth nightly. BIOTIN 5 MG TABLET Take 5 mg by mouth Daily. BUSPIRONE (BUSPAR) 5 MG TABLET Take 5 mg by mouth 2 times daily. CALCIUM CITRATE-VITAMIN D (CALCIUM + D) 315 MG-200 UNITS PER TABLET Take 1 tablet by mo uth 2 times daily. CHOLECALCIFEROL (VITAMIN D3) 58253 UNITS TABS Take 50,000 Units by mouth Once a week. CLOPIDOGREL (PLAVIX) 75 MG TABLET Take 1 tablet by mouth Daily. CYANOCOBALAMIN (VITAMIN B-12) 1000 MCG TABLET Take 1,000 mcg by mouth Daily. DULOXETINE (CYMBALTA) [address] CAPSULE Take 80 mg by mouth Daily. EPINEPHRINE (EPIPEN) 0.3 MG/0.3 ML INJECTION Inject 0.3 mg into the muscle as needed fo r Anaphylaxis. ISOSORBIDE MONONITRATE (IMDUR) 30 MG ER TABLET Take 1 tablet by mouth Daily. LEVOTHYROXINE (SYNTHROID, LEVOTHROID) 150 MCG TABLET Take 137 mcg by mouth every mornin g (before breakfast). LISINOPRIL-HYDROCHLOROTHIAZIDE (PRINZIDE,ZESTORETIC) 20-25 MG PER TABLET Take 1 tablet by mouth Daily. MAGNESIUM 200 MG TABS Take by mouth. METFORMIN (GLUCOPHAGE) 500 MG TABLET 1 pill twice daily starting on 07/29/2015 MULTIPLE VITAMINS-MINERALS (MULTIVITAMIN PO) Take by mouth. NITROGLYCERIN (NITROSTAT) 0.[address] 1 tablet under the tongue every 5 thaddeus soledad as needed for Chest pain. UNABLE TO FIND Med Name: Resmed AirSense 10 autoset CPAP: 5-20cm while sleeping. She is allergic to aripiprazole; bee venom; clonidine derivatives; insulin glargine; insuli n lispro; pioglitazone hydrochloride; shellfish-derived products; and statins.. Past Medical History: Diagnosis Date Asthma CVA (cerebral vascular accident) ([facility]) 09/2015 DDD (degenerative disc disease), cervical 02/08/2012 Diabetes type 2, controlled ([facility]) Off all medications since surgery Fibromyalgia Hypertension Mixed sleep apnea Murmur, cardiac Myocardial infarction 07/2015 Numbness and tingling in right hand 02/08/2012 Obesity NEHEMIAH (obstructive sleep apnea) Stroke ([facility]) Asymptomatic - noted on CT scan in distant past Past Surgical History: Procedure Laterality Date APPENDECTOMY 1958 CARDIAC CATHERIZATION N/A 07/27/2015 Procedure: CV DIAGNOSTIC CARDIAC CATH; Surgeon: Иван Kaur MD; Location: [facility] CARDIO VASCULAR LAB CHOLECYSTECTOMY 1988 GASTRIC BYPASS SURGERY 2011 HYSTERECTOMY, TOTAL ABDOMINAL 1973 right carotid stent 10/09 right knee arthroscopy 1989 THYROIDECTOMY 2004 THYROIDECTOMY, PARTIAL 1985 TONSILLECTOMY AND ADENOIDECTOMY 1950 TOTAL KNEE ARTHROPLASTY Right 07/16/2015 Procedure: Right Total Knee Arthroplasty; Surgeon: Jordin Fernandez MD; Location: [facility] MAIN OR UVULOPALATOPHARYGOPLASTY 1987 Family History Problem Relation Age of Onset Heart disease Father Other (see comment) Son obese Heart disease Brother Diabetes Brother Social History Social History Marital status: Single Spouse name: N/A Number of children: N/A Years of education: BS 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 HENT: Positive for mouth sores, nosebleeds and postnasal drip. Eyes: Negative. Cardiovascular: Negative. Gastrointestinal: Negative. Genitourinary: Negative. Musculoskeletal: Negative. Allergic/Immunologic: Negative. Neurological: Negative. All other systems reviewed and are negative. Physical Exam BP 97/82 | Pulse 67 | Temp 36.7 C (98.1 F) (Oral) | Resp 16 | Ht 1.651 m (5' 5") | Wt 72.5 kg (159 lb 13.3 oz) | SpO2 100% | BMI 26.60 kg/m Physical Exam Constitutional: She is oriented to person, place, and time. Pale appearing Eyes: Pupils are equal, round, and reactive to light. Pale conj. Neck: Normal range of motion. Neck supple. Pulmonary/Chest: Breath sounds normal. Abdominal: Bowel sounds are normal. There is no tenderness. There is no guarding. Neurological: She is alert and oriented to person, place, and time. Diffusely weak - no asym noted. Psychiatric: She has a normal mood and affect. Her behavior is normal. Nursing note and vitals reviewed. ED Course Procedures MDM The patient has lost blood - GI source per her hx., though guiac neg here. She also appea rs to have a uti. Hospitalist evaluation here. She will need transfusion at this blood level. Her weakness is significant. She was boris rned about stroke. CT normal with no acute Aung Regan MD 07/11/17 1706 ga Lanier RN - 07/11/2017 2:19 PM PDTPt c/o feeling light headed and dizzy with blurred vision x2 d ays. Pt also c/o abdominal pain, SOB and neck pain. Denies chest pain. Hx of stroke 2 years ago. documented in this encounter Miscellaneous Notes Plan of Care - Lori Starks RN - 07/12/2017 5:16 PM PDTProblem: Patient Care Overv iew (Adult) Goal: Care Team Goals & Evaluation PROBLEM-RELATED GOALS: 1. Le will have no dizziness or weakness through 07/18/17. 2. Le will demonstrate hemodynamic stability through BP and H/H within normal limits 07/18. 3. Le will remain free from falls and injury through 07/18/17. 4. Le will have no emesis through 07/18/17. STRATEGY TO ACHIEVE GOALS: - Ambulate with assistance - Assess BP and H/H - Ambulate with non-skid socks - Assess for emesis RESTRAINT-RELATED GOALS: STRATEGIES TO ACHIEVE RESTRAINT GOALS: Outcome: Goal Achieved Date Met: 07/12/17 Goal Evaluation: Le is [facility] she has lived a month - she is able to be as physically active there as she chooses - [facility] walking park and many organized social events - she has amb safely independently here - to lerates full liquid diet and understands she'll need to f/u with Dr Liz in 3 months for a r epeat UGI. p Note - Omar Liz MD - 07/12/2017 11:46 AM PDT PROCEDURE NOTE PATIENT: Le Rollins DATE OF : 1945 DATE OF PROCEDURE: 07/12/17 PROCEDURE PERFORMED: EGD with biopsy INDICATION: melena, anemia ENDOSCOPIST: Agusto Herndon MD ANESTHESIA provided by Dr. Cade DESCRIPTION OF PROCEDURE: After the risks, benefits and alternatives of the procedure were thoroughly explained, info rmed consent was obtained. The Olympus upper endoscope was introduced through the oropharyn x, and advanced to the jejunum. The instrument was then slowly withdrawn as the mucosa wa s fully examined. FINDINGS:: schatzki's ring at 35cm. 3 cm hiatal hernia. Patient has a Rou-en-y anatomy. There were 3 ulcer crater at the gastrojejunal anastomosis site with no signs of active bleeding. Th e gastrojejunal anastomosis was patulous. Biopsies were obtained from gastric body for h p ylori. Retroflexion shows a hiatal hernia. The afferent jejunal limb was intubated for 20cm and appeared normal COMPLICATIONS: None. DIAGNOSTIC IMPRESSION: 1. schatzki's ring 2. Hiatal hernia 3. Emily-en- y anatomy 4. Gastrojejunal anastomotic ulcer RECOMMENDATIONS: Continue pantoprazole Avoid NSAID Hold plavix x 1 week if OK with cardiology IV iron while in house Call Dr. Liz's office if you develop increasing abdominal pain, fever, or vomiting of bloo d after the procedure. REPEAT EXAM: 3 months CC: Willie Madden lan of Care - Belkys Bansal RN - 07/12/2017 10:39 AM PDTCase Management Assessment: CM to patient room for initial assessment. Patient alert and oriented x 3 and sitting up comfortably in bed. RN present at bedside as patient is receiving blood at time of visi t. Demographics, PCP (Dr. Cheng), and Pharmacy ([facility]) verified. Address and PCP lis ozzy incorrectly in system, CM contacted Lisa in admitting to update in [place]. Discharge Planning: Le is independent with her ADL's at baseline and does not own or utilize any assisti ve devices at home. Patient does use a CPAP at [facility] that is serviced through [employer]. Patient states that she lives at [facility] and that her apartment is "set up" with grab bars in e bathroom, hand held shower head, shower seat, and life alert necklace. Patient's friend w ill provide transportation home and can assist in the home as needed after discharge. Patie nt denies additional questions, concerns, or needs regarding anticipated plan for discharge back to [facility] when medically stable. Disposition: Home, no anticipated needs. Electronically signed by: Belkys Bansal RN 07/12/2017 10:39 lan of [place] - Janeth Boudreaux RN - 07/12/2017 6:44 AM PDTProblem: Patient Care Overview (Adult) Goal: Care Team Goals & Evaluation PROBLEM-RELATED GOALS: 1. Le will have no dizziness or weakness through 07/18/17. 2. Le will demonstrate hemodynamic stability through BP and H/H within normal limits 07/18. 3. Le will remain free from falls and injury through 07/18/17. 4. Le will have no emesis through 07/18/17. STRATEGY TO ACHIEVE GOALS: - Ambulate with assistance - Assess BP and H/H - Ambulate with non-skid socks - Assess for emesis RESTRAINT-RELATED GOALS: STRATEGIES TO ACHIEVE RESTRAINT GOALS: Outcome: Improving Goal Evaluation: 1. Le has had no dizziness or weakness. 2. Le has had two units of blood, patient feels less weak and is less pale. 3. Le has remained free from falls and injury. 4. Le has had no emesis. lan of Care - Yassine matthews, Susanne Pride RN - 07/11/2017 7:19 PM [id number] Pt arrived via WC from ED. Report received fr adarsh Sylvester RN. Blood sugar 110, parameter not met for insulin adm. Pt says she takes metformin at home, no insulin. Explained to her that she will not be taking metformin here, and will be covered w ith insulin for increased blood sugars. 1929 Blood consent signed. Pt reports she has approx 300 dollars in her purse. Security not ified, says he will be up later after his duties. Report given to SOO Robertson.Electronically s igned by Susanne Henriquez RN at 07/11/2017 7:40 PM PDTdocumented in this encounter Plan of Treatment Not on filedocumented as of this encounter Procedures + +--------+ + + + | Procedure Name | Priori | Date/Time | Associated Diagnosis | Comments | | | ty | | | | + +--------+ + + + | PRODUCT: RBC | STAT | 07/13/2017 | | Results for this | | | | 1:15 AM | | procedure are in the | | | | PDT | | results section. | + +--------+ + + + | PRODUCT: RBC | Routin | 07/12/2017 | | Results for this | | | e | 1:15 PM | | procedure are in the | | | | PDT | | results section. | + +--------+ + + + | EGD | | 07/12/2017 | GI Bleed | | | | | 11:37 AM | | | | | | PDT | | | + +--------+ + + + | POC GLUCOSE | Routin | 07/12/2017 | | Results for this | | | e | 6:13 AM | | procedure are in the | | | | PDT | | results section. | + +--------+ + + + | VITAMIN B-12 | Routin | 07/12/2017 | | Results for this | | | e | 4:48 AM | | procedure are in the | | | | PDT | | results section. | + +--------+ + + + | IRON AND TRANSFERRIN | Routin | 07/12/2017 | | Results for this | | | e | 4:48 AM | | procedure are in the | | | | PDT | | results section. | + +--------+ + + + | PROTIME INR | Routin | 07/12/2017 | | Results for this | | | e | 4:48 AM | | procedure are in the | | | | PDT | | results section. | + +--------+ + + + | CBC NO DIFFERENTIAL | Routin | 07/12/2017 | | Results for this | | | e | 4:48 AM | | procedure are in the | | | | PDT | | results section. | + +--------+ + + + | MAGNESIUM | Routin | 07/12/2017 | | Results for this | | | e | 4:48 AM | | procedure are in the | | | | PDT | | results section. | + +--------+ + + + | FERRITIN | Routin | 07/12/2017 | | Results for this | | | e | 4:48 AM | | procedure are in the | | | | PDT | | results section. | + +--------+ + + + | BASIC METABOLIC | Routin | 07/12/2017 | | Results for this | | PANEL | e | 4:48 AM | | procedure are in the | | | | PDT | | results section. | + +--------+ + + + | SURGICAL PATHOLOGY | Routin | 07/12/2017 | | Results for this | | EXAM | e | 12:00 AM | | procedure are in the | | | | PDT | | results section. | + +--------+ + + + | POC GLUCOSE | Routin | 07/11/2017 | | Results for this | | | e | 10:31 PM | | procedure are in the | | | | PDT | | results section. | + +--------+ + + + | TRANSFUSE 2 UNITS | Routin | 07/11/2017 | | | | RED BLOOD CELLS | e | 10:23 PM | | | | | | PDT | | | + +--------+ + + + | POC GLUCOSE | Routin | 07/11/2017 | | Results for this | | | e | 6:13 PM | | procedure are in the | | | | PDT | | results section. | + +--------+ + + + | TYPE AND SCREEN | Routin | 07/11/2017 | | Results for this | | | e | 3:29 PM | | procedure are in the | | | | PDT | | results section. | + +--------+ + + + | CT HEAD WO CONTRAST | STAT | 07/11/2017 | | Results for this | | | | 3:20 PM | | procedure are in the | | | | PDT | | results section. | + +--------+ + + + | CBC WITH | STAT | 07/11/2017 | | Results for this | | DIFFERENTIAL | | 3:08 PM | | procedure are in the | | | | PDT | | results section. | + +--------+ + + + | COMPREHENSIVE | STAT | 07/11/2017 | | Results for this | | METABOLIC PANEL | | 3:08 PM | | procedure are in the | | | | PDT | | results section. | + +--------+ + + + | URINALYSIS WITH | STAT | 07/11/2017 | | Results for this | | MICROSCOPIC | | 2:54 PM | | procedure are in the | | | | PDT | | results section. | + +--------+ + + + | CULTURE, URINE | Routin | 07/11/2017 | | Results for this | | | e | 2:54 PM | | procedure are in the | | | | PDT | | results section. | + +--------+ + + + | ECG 12 LEAD | STAT | 07/11/2017 | | Results for this | | | | 2:22 PM | | procedure are in the | | | | PDT | | results section. | + +--------+ + + + | POC GLUCOSE | Routin | 07/11/2017 | | Results for this | | | e | 2:20 PM | | procedure are in the | | | | PDT | | results section. | + +--------+ + + + | IMAGING REPORT - | | 10/07/2011 | | Results for this | | EXTERNAL SCAN | | 12:00 AM | | procedure are in the | | | | PDT | | results section. | + +--------+ + + + documented in this encounter Results Red Blood Cells (PRBC) - Crossmatch (07/13/2017 1:15 AM PDT) + + + + + + | Component | Value | Ref Range | Performed | Pathologist | | | | | At | Signature | + + + + + + | Product | [id number] | | [facility] | | | Code | | [facility] | | [facility] | [facility] | | | | | | [facility] - | | | | | | BLOOD BANK | | + + + + + + | UNIT # | [id number] | | [facility] | | | | | [facility] | | | | | | [facility] | | | | | | CENTER - | | | | | | BLOOD BANK | | + + + + + + | UNIT ABO | A | | [facility] | | | | | [facility] | | | | | | [facility] | | | | | | CENTER - | | | | | | BLOOD BANK | | + + + + + + | UNIT RH | POS | | [facility] | | | | | | [facility] | | | | | | [facility] | | | | | | CENTER - | | | | | | BLOOD BANK | | + + + + + + | CROSSMATCH | Compatible | | [facility] | | | INTERP | | | [facility] | | | | | | [facility] | | | | | | CENTER - | | | | | | BLOOD BANK | | + + + + + + | Unit Status | Transfused | | [facility] | | | | | | [facility] | | | | | [facility] | | | | | | CENTER - | | | | | | BLOOD BANK | | + + + + + + | Blood | APOS | | [facility] | | | Product | | | [facility] | | | ABORh | | | MEDICAL | | | | | | CENTER - | | | | | | BLOOD BANK | | + + + + + + | Blood | [id number] | | [facility] | | | Product | | | [facility] | | | Expiration | | | MEDICAL | | | Date and | | | CENTER - | | | Time | | | BLOOD BANK | | + + + + + + | Product | [id number] | | [facility] | | | Blood Type | | | [facility] | | | Barcode | | | MEDICAL | | | | | | CENTER - | | | | | | BLOOD BANK | | + + + + + + + + | Specimen | + + | | + + + + + + + | Performing | Address | City/State/Zipcode | Phone Number | | Organization | | | | + + + + + | [facility] | [address] | [place] | | | [facility] | | [address] | | | - BLOOD BANK | | | | + + + + + Red Blood Cells (PRBC) - Crossmatch (07/12/2017 1:15 PM PDT) + + + + + + | Component | Value | Ref Range | Performed | Pathologist | | | | | At | Signature | + + + + + + | Product | [id number] | | [facility] | | | Code | | | [facility] | | | | | | MEDICAL | | | | | | CENTER - | | | | | | BLOOD BANK | | + + + + + + | UNIT # | [id number] | | [facility] | | | | | [facility] | | | | | | MEDICAL | | | | | | CENTER - | | | | | | BLOOD BANK | | + + + + + + | UNIT ABO | A | | [facility] | | | | | | [facility] | | | | | | MEDICAL | | | | | | CENTER - | | | | | | BLOOD BANK | | + + + + + + | UNIT RH | POS | | [facility] | | | | | | [facility] | | | | | | MEDICAL | | | | | | CENTER - | | | | | | BLOOD BANK | | + + + + + + | CROSSMATCH | Compatible | | [facility] | | | INTERP | | | [facility] | | | | | | MEDICAL | | | | | | CENTER - | | | | | | BLOOD BANK | | + + + + + + | Unit Status | Transfused | | [facility] | | | | | [facility] | | | | | | MEDICAL | | | | | | CENTER - | | | | | | BLOOD BANK | | + + + + + + | Blood | APOS | | [facility] | | | Product | | | [facility] | | | ABORh | | | MEDICAL | | | | | | CENTER - | | | | | | BLOOD BANK | | + + + + + + | Blood | [id number] | | [facility] | | | Product | | | [facility] | | | Expiration | | | MEDICAL | | | Date and | | | CENTER - | | | Time | | | BLOOD BANK | | + + + + + + | Product | [id number] | | [facility] | | | Blood Type | | | [facility] | | | Barcode | | | MEDICAL | | | | | | CENTER - | | | | | | BLOOD BANK | | + + + + + + | Product | [id number] | | [facility] | | | Code | | | [facility] | | | | | | MEDICAL | | | | | | CENTER - | | | | | | BLOOD BANK | | + + + + + + | UNIT # | [id number] | | [facility] | | | | | | [facility] | | | | | | MEDICAL | | | | | | CENTER - | | | | | | BLOOD BANK | | + + + + + + | UNIT ABO | A | | [facility] | | | | | | [facility] | | | | | | MEDICAL | | | | | | CENTER - | | | | | | BLOOD BANK | | + + + + + + | UNIT RH | POS | | [facility] | | | | | | [facility] | | | | | | MEDICAL | | | | | | CENTER - | | | | | | BLOOD BANK | | + + + + + + | CROSSMATCH | Compatible | | [facility] | | | INTERP | | | [facility] | | | | | | MEDICAL | | | | | | CENTER - | | | | | | BLOOD BANK | | + + + + + + | Unit Status | Transfused | | [facility] | | | | | | [facility] | | | | | | MEDICAL | | | | | | CENTER - | | | | | | BLOOD BANK | | + + + + + + | Blood | APOS | | [facility] | | | Product | | | [facility] | | | ABORh | | | MEDICAL | | | | | | CENTER - | | | | | | BLOOD BANK | | + + + + + + | Blood | [id number] | | [facility] | | | Product | | | [facility] | | | Expiration | | | MEDICAL | | | Date and | | | CENTER - | | | Time | | | BLOOD BANK | | + + + + + + | Product | 6200 | | [facility] | | | Blood Type | | | [facility] | | | Barcode | | | MEDICAL | | | | | | CENTER - | | | | | | BLOOD BANK | | + + + + + + + + | Specimen | + + | | + + + + + + + | Performing | Address | City/State/Zipcode | Phone Number | | Organization | | | | + + + + + | [facility] | [address] | [place] | | | [facility] | | [address] | | | - BLOOD BANK | | | | + + + + + POC Glucose (07/12/2017 6:13 AM PDT) + +-------+ + + + | Component | Value | Ref Range | Performed | Pathologist | | | | | At | Signature | + +-------+ + + + | Glucose, | 105 | 70 - 109 mg/dL | [facility] | | | POC | | | [facility] | | [...] + + | [facility] | [address] | [place] | [phone] | | [facility] | | [address] | | | - LABORATORY | | | | + + + + + Vitamin B-12 (07/12/2017 4:48 AM PDT) + + + + + + | Component | Value | Ref Range | Performed | Pathologist | | | | | At | Signature | + + + + + + | VITAMIN | 421Comment: DEFICIENT: | 180 - 914 pg/mL | [facility] | | | B-12 | <145 | | [facility] | | | | pg/mLINDETERMINATE: | | MEDICAL | | | | 145-180 pg/mL | | CENTER - | | | [...] ST. | [address] | [place] | [phone] | | [facility] | | [address] | | | - LABORATORY | | | | + + + + + Ferritin (07/12/2017 4:48 AM PDT) + +-------+ + + + | Component | Value | Ref Range | Performed | Pathologist | | | | | At | Signature | + +-------+ + + + | FERRITIN | 5 (L) | 11 - 307 ng/mL | [facility] | | | | | | [facility] [address] | [place] | [phone] | | [facility] | | [address] | | | - LABORATORY | | | | + + + + + Iron and Transferrin (07/12/2017 4:48 AM PDT) + +---------+ + + + | Component | Value | Ref Range | Performed | Pathologist | | | | | At | Signature | + +---------+ + + + | Iron | 174 (H) | 40 - 150 ug/dL | [facility] | | | | | | [facility] | | | | | | MEDICAL | | | | | | CENTER - | | | | | | LABORATORY | | + +---------+ + + + | TRANSFERRIN | 302.3 | 240.0 - 480.0 | [facility] | | | | | mg/dL | [facility] | | | | | | MEDICAL | | | | | | CENTER - | | | | | | LABORATORY | | + +---------+ + + + | TIBC | 423 | 235 - 425 ug/dL | [facility] | | | | | | [facility] | | | | | | MEDICAL | | | | | | CENTER - | | | | | | LABORATORY | | + +---------+ + + + | % | 41.1 | 20.0 - 55.0 % | [facility] | | | SATURATION | | | [facility] | | | | | | MEDICAL | | | | | | CENTER - | | | | | | LABORATORY | | + +---------+ + + + + + | Specimen | + + | Blood | + + + + + + + | Performing | Address | City/State/Zipcode | Phone Number | | Organization | | | | + + + + + | [facility] | [address] | [place] | [phone] | | [facility] | | [address] | | | - LABORATORY | | | | + + + + + Protime INR (07/12/2017 4:48 AM PDT) + + + + + + | Component | Value | Ref Range | Performed | Pathologist | | | | | At | Signature | + + + + + + | Prothrombin | 14.2 (H) | 11.3 - 13.9 | [facility] | | | Time | | seconds | [facility] | | | | | | MEDICAL | | | | | | CENTER - | | | | | | LABORATORY | | + + + + + + | INR | 1.11 (H)Comment: Usual | 0.90 - 1.10 | [facility] | | | | Oral Anticoagulation | | [facility] | | | | Range: 2.0 - | | MEDICAL | | | | 3.0High Level Oral | | CENTER - | | | | Anticoagulation Range: | | LABORATORY | | | | 2.5 - 3.5 | | | | + + + + + + + + | Specimen | + + | Blood | + + + + + + + | Performing | Address | City/State/Zipcode | Phone Number | | Organization | | | | + + + + + | [facility] | [address] | [place] | [phone] | | [facility] | | [address] | | | - LABORATORY | | | | + + + + + Magnesium (07/12/2017 4:48 AM PDT) + +-------+ + + + | Component | Value | Ref Range | Performed | Pathologist | | | | | At | Signature | + +-------+ + + + | Magnesium | 2.0 | 1.8 - 2.5 mg/dL | [facility] | | | | | | [facility] | | [...] | + + + + + | [facility] | [address] | [place] | [phone] | | [facility] | | [address] | | | - LABORATORY | | | | + + + + + CBC no Differential (07/12/2017 4:48 AM PDT) + + + + + + | Component | Value | Ref Range | Performed | Pathologist | | | | | At | Signature | + + + + + + | White Blood | 5.1 | 4.0 - 11.0 K/uL | [facility] | | | Cells | | | [facility] | | | | | | MEDICAL | | | | | | CENTER - | | | | | | LABORATORY | | + + + + + + | Red Blood | 3.58 (L) | 3.70 - 5.20 | [facility] | | | Cells | | M/uL | [facility] | | | | | | MEDICAL | | | | | | CENTER - | | | | | | LABORATORY | | + + + + + + | Hemoglobin | 8.6 (L) | 11.5 - 16.0 | [facility] | | | | | g/dL | [facility] | | | | | | MEDICAL | | | | | | CENTER - | | | | | | LABORATORY | | + + + + + + | Hematocrit | 27.3 (L) | 34.0 - 47.0 % | [facility] | | | | | | [facility] | | | | | | MEDICAL | | | | | | CENTER - | | | | | | LABORATORY | | + + + + + + | MCV | 76.3 (L) | 83.0 - 101.0 fL | [facility] | | | | | | [facility] | | | | | | MEDICAL | | | | | | CENTER - | | | | | | LABORATORY | | + + + + + + | MCH | 24.1 (L) | 28.0 - 35.0 pg | [facility] | | | | | | [facility] | | | | | | MEDICAL | | | | | | CENTER - | | | | | | LABORATORY | | + + + + + + | MCHC | 31.6 (L) | 32.0 - 36.0 | [facility] | | | | | g/dL | [facility] | | | | | | MEDICAL | | | | | | CENTER - | | | | | | LABORATORY | | + + + + + + | RDW-CV | 17.7 (H) | <15.0 % | [facility] | | | | | | [facility] | | | | | | MEDICAL | | | | | | CENTER - | | | | | | LABORATORY | | + + + + + + | Platelet | 268 | 140 - 440 K/uL | [facility] | | | Count | | | [facility] | | | | | | MEDICAL | | | | | | CENTER - | | | | | | LABORATORY | | + + + + + + | MPV | 7.9 | fL | [facility] | | | | | [...] ST. | [address] | [place] | [phone] | | [facility] | | [address] | | | - LABORATORY | | | | + + + + + Basic Metabolic Panel (07/12/2017 4:48 AM PDT) + + + + + + | Component | Value | Ref Range | Performed | Pathologist | | | | | At | Signature | + + + + + + | Na | 138 | 136 - 149 | [facility] | | | | | mmol/L | [facility] | | | | | | MEDICAL | | | | | | CENTER - | | | | | | LABORATORY | | + + + + + + | K | 4.1 | 3.5 - 5.1 | [facility] | | | | | mmol/L | [facility] | | | | | | MEDICAL | | | | | | CENTER - | | | | | | LABORATORY | | + + + + + + | Cl | 108 | 98 - 109 mmol/L | [facility] | | | | | | [facility] | | | | | | MEDICAL | | | | | | CENTER - | | | | | | LABORATORY | | + + + + + + | CO2 | 27 | 24 - 31 mmol/L | [facility] | | | | | | [facility] | | | | | | MEDICAL | | | | | | CENTER - | | | | | | LABORATORY | | + + + + + + | Anion Gap | 3 | 3 - 16 mmol/L | [facility] | | | | | | [facility] | | | | | | MEDICAL | | | | | | CENTER - | | | | | | LABORATORY | | + + + + + + | Glucose | 102 | 70 - 109 mg/dL | [facility] | | | | | | [facility] | | | | | | MEDICAL | | | | | | CENTER - | | | | | | LABORATORY | | + + + + + + | BUN | 10 | 7 - 18 mg/dL | [facility] | | | | | | [facility] | | | | | | MEDICAL | | | | | | CENTER - | | | | | | LABORATORY | | + + + + + + | Creatinine | 0.82 | 0.60 - 1.30 | [facility] | | | | | mg/dL | [facility] | | | | | | MEDICAL | | | | | | CENTER - | | | | | | LABORATORY | | + + + + + + | eGFR, | >60Comment: GLOMERULAR | >=60 | [facility] | | | non- | FILTRATION | mL/min/1.73m2 | [facility] | | | [place] | RATE,ESTIMATED | | MEDICAL | | | | mL/min/1.54z6Fqxx than | | CENTER - | | | | 60 Chronic kidney | | LABORATORY | | | | disease,if found over a | | | | | | 3-month period.Less than | | | | | | 15 Kidney failureFor | | | | | | | | | | | | Americans,multiply the | | | | | | calculated GFR by 1.21. | | | | | | | | | | + + + + + + | Calcium | 7.9 (L) | 8.3 - 10.5 | [facility] | | | | | mg/dL | [facility] | | | | | | MEDICAL | | | | | | CENTER - | | | | | | LABORATORY | | + + + + + + | BUN/Creatin | 12.2 | | [facility] | | | ine Ratio | | | [facility] | | [...] ST. | [address] | [place], [place] | [phone] | | [facility] | | [address] | | | - LABORATORY | | | | + + + + + Surgical Pathology Exam (07/12/2017 12:00 AM PDT) + + | Specimen | + + | | + + + + + | Narrative | Performed At | + + + | SPECIMEN(S): A GASTRIC BIOPSY SPECIMEN SOURCE: [facility] | [facility] | | BIOPSY CLINICAL HISTORY: GI bleed. MICROSCOPIC DESCRIPTION: | [facility] | | Histologic sections of all submitted blocks are examined by light | | | microscopy. These findings, together with the gross examination, | | | support the pathologic diagnosis. FINAL PATHOLOGIC DIAGNOSIS: | | | Stomach, biopsy: - Benign gastric oxyntic-type mucosa. - Slight | | | fundic gland dilatation suggestive of proton pump inhibitor effect. - | | | Negative for significant inflammation, atrophy, intestinal | | | metaplasia or dysplasia. - Negative for Helicobacter pylori with HE | | | stain. [facility]:smn:C2NR GROSS DESCRIPTION: The specimen, labeled | | | and designated "Lehnert, gastric biopsy," is received in formalin and | | | consists of a single pink-foreman soft tissue up to 0.5 cm that is | | | submitted in toto within (A1). mas:ANGELA:myra PERFORMING LABORATORY: | | | The technical component and professional interpretation were | | | performed by [facility], [address] [facility] | | | [place] [address] (Grocery Clerk: Pradip Medina D.O.; CLIA#: | | | [id number]). Diagnostician: Bill Yuen MD Pathologist | | | Electronically Signed 07/13/2017 | | + + + + +---------+ + + | Performing | Address | City/State/Zipcode | Phone Number | | Organization | | | | + +---------+ + + | [facility] | | | | | [facility] | | | | + +---------+ + + POC Glucose (07/11/2017 10:31 PM PDT) + +---------+ + + + | Component | Value | Ref Range | Performed | Pathologist | | | | | At | Signature | + +---------+ + + + | Glucose, | 115 (H) | 70 - 109 mg/dL | [facility] | | | POC | | | [facility] | | | | | | MEDICAL | | | | | | CENTER - | | | | | | LABORATORY | | + +---------+ + + + + + | Specimen | + + | Blood | + + + + + + + | Performing | Address | City/State/Zipcode | Phone Number | | Organization | | | | + + + + + | [facility] | [address] | [place] | [phone] | | [facility] | | [address] | | | - LABORATORY | | | | + + + + + POC Glucose (07/11/2017 6:13 PM PDT) + +---------+ + + + | Component | Value | Ref Range | Performed | Pathologist | | | | | At | Signature | + +---------+ + + + | Glucose, | 110 (H) | 70 - 109 mg/dL | [facility] | | | POC | | | [facility] | | | | | | MEDICAL | | | | | | CENTER - | | | | | | LABORATORY | | + +---------+ + + + + + | Specimen | + + | Blood | + + + + + + + | Performing | Address | City/State/Zipcode | Phone Number | | Organization | | | | + + + + + | [facility] | [address] | [place] | [phone] | | [facility] | | [address] | | | - LABORATORY | | | | + + + + + Type and Screen (07/11/2017 3:29 PM PDT) + + + + + + | Component | Value | Ref Range | Performed | Pathologist | | | | | At | Signature | + + + + + + | ABO | A | | [facility] | | | | | | [facility] | | | | | | MEDICAL | | | | | | CENTER - | | | | | | BLOOD BANK | | + + + + + + | Rh Type | Positive | | [facility] | | | | | | [facility] | | | | | | MEDICAL | | | | | | CENTER - | | | | | | BLOOD BANK | | + + + + + + | Antibody | Negative | | [facility] | | | Screen | | | [facility] | | | | | | MEDICAL | | | | | | CENTER - | | | | | | BLOOD BANK | | + + + + + + + + | Specimen | + + | Blood | + + + + + + + | Performing | Address | City/State/Zipcode | Phone Number | | Organization | | | | + + + + + | [facility] | [address] | [place], [place] | | | [facility] | | [address] | | | - BLOOD BANK | | | | + + + + + CT Head wo Contrast (07/11/2017 3:20 PM PDT) + + | Specimen | + + | | + + + + + | Narrative | Performed At | + + + | UN[facility] CT 07/11/2017 3:20 PM CLINICAL HISTORY: | [facility] | | DIZZINESS ABDOMINAL PAIN COMPARISON: CT January 2012 | | | TECHNIQUE: Axial unenhanced images are performed through the head, | | | along with coronal and sagittal reformations. FINDINGS: | | | Regions of encephalomalacia are now present in the right frontal | | | lobe, extending into the insula, and also in the left parietal lobe, | | | consistent with chronic infarcts. Allowing for beam hardening, | | | issa-white differentiation is maintained elsewhere. There is mild | | | cerebral atrophy with mild hypoattenuation of the periventricular | | | white matter. The ventricles, brainstem and cerebellum are | | | unremarkable. There is no mass effect, evidence of recent | | | intracranial hemorrhage or extra-axial abnormality. Calcified plaque | | | is present in the terminal internal carotid arteries. 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 The bones and soft tissues, including the | | | imaged paranasal sinuses, middle ear cavities and mastoid air cells, | | | are otherwise unremarkable. IMPRESSION - 1. NO EVIDENCE OF | | | ACUTE INTRACRANIAL DISEASE. 2. 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 3. MILD, | | | GENERALIZED ATROPHY AND PROBABLE CHRONIC, MICROVASCULAR ISCHEMIC | | | CHANGE OF THE PERIVENTRICULAR WHITE MATTER, IN THE SETTING OF VASCULAR | | | CALCIFICATION. Images were provided for interpretation on June | | | 2017 at 1530 hours. Results were finalized at 1610 hours. | | | Dictated and Signed by: Ramo Power MD Electronically signed: | | | 07/11/2017 4:07 PM | | + + + + + | Procedure Note | + + | Maurice, Rad Results In - 07/11/2017 4:10 PM PDT UNENHANCED HEAD CT 07/11/2017 3:20 PM | | | | CLINICAL HISTORY: DIZZINESS | | ABDOMINAL PAIN | | | | COMPARISON: CT January 2012 | | | | TECHNIQUE: Axial unenhanced images are performed through the head, along with | | coronal and sagittal reformations. | | | | FINDINGS: Regions of encephalomalacia are now present in the right frontal | | lobe, extending into the insula, and also in the left parietal lobe, consistent | | with chronic infarcts. Allowing for beam hardening, issa-white differentiation | | is maintained elsewhere. There is mild cerebral atrophy with mild | | hypoattenuation of the periventricular white matter. The ventricles, brainstem | | and cerebellum are unremarkable. There is no mass effect, evidence of recent | | intracranial hemorrhage or extra-axial abnormality. Calcified plaque is present | | in the terminal internal carotid arteries. Hyperostosis frontalis is present. | | The bones and soft tissues, including the imaged paranasal sinuses, middle ear | | cavities and mastoid air cells, are otherwise unremarkable. | | | | IMPRESSION - | | 1. NO EVIDENCE OF ACUTE INTRACRANIAL DISEASE. | | | | 2. CHRONIC RIGHT FRONTAL/INSULAR AND LEFT PARIETAL INFARCTS, NEW FROM IMAGING | | OF 2011. | | | | 3. MILD, GENERALIZED ATROPHY AND PROBABLE CHRONIC, MICROVASCULAR ISCHEMIC | | CHANGE OF THE PERIVENTRICULAR WHITE MATTER, IN THE SETTING OF VASCULAR | | CALCIFICATION. | | | | Images were provided for interpretation on July 11, 2017 at 1530 hours. | | Results were finalized at 1610 hours. | | | | Dictated and Signed by: Ramo Power MD | | Electronically signed: 07/11/2017 4:07 PM | + + + +---------+ + + | Performing | Address | City/State/Zipcode | Phone Number | | Organization | | | | + +---------+ + + | [facility] | | | | + +---------+ + + Comprehensive Metabolic Panel (07/11/2017 3:08 PM PDT) + + + + + + | Component | Value | Ref Range | Performed | Pathologist | | | | | At | Signature | + + + + + + | Na | 135 (L) | 136 - 149 | [facility] | | | | | mmol/L | [facility] | | | | | | [facility] | | | | | | [facility] - | | | | | | LABORATORY | | + + + + + + | K | 4.4 | 3.5 - 5.1 | [facility] | | | | | mmol/L | [facility] | | | | | | [facility] | | | | | | [facility] - | | | | | | LABORATORY | | + + + + + + | Cl | 103 | 98 - 109 mmol/L | [facility] | | | | | | [facility] | | | | | | [facility] | | | | | | [facility] - | | | | | | LABORATORY | | + + + + + + | CO2 | 26 | 24 - 31 mmol/L | [facility] | | | | | | [facility] | | | | | | [facility] | | | | | | [facility] - | | | | | | LABORATORY | | + + + + + + | Anion Gap | 6 | 3 - 16 mmol/L | [facility] | | | | | | [facility] | | | | | | [facility] | | | | | | [facility] - | | | | | | LABORATORY | | + + + + + + | Glucose | 153 (H) | 70 - 109 mg/dL | [facility] | | | | | | [facility] | | | | | | [facility] | | | | | | C[facility] - | | | | | | LABORATORY | | + + + + + + | BUN | 13 | 7 - 18 mg/dL | [facility] | | | | | | [facility] | | | | | | [facility] | | | | | | [facility] - | | | | | | LABORATORY | | + + + + + + | Creatinine | 0.85 | 0.60 - 1.30 | [facility] | | | | | mg/dL | [facility] | | | [facility] | | [facility] | | | | | | CENTER - | | | | | | LABORATORY | | + + + + + + | eGFR, | >60Comment: GLOMERULAR | >=60 | [facility] | | | non- | FILTRATION | mL/min/1.73m2 | [facility] | | | [place] | RATE,ESTIMATED | | MEDICAL | | | | mL/min/1.91s3Xowd than | | CENTER - | | | | 60 Chronic kidney | | LABORATORY | | | | disease,if found over a | | | | | | 3-month period.Less than | | | | | | 15 Kidney failureFor | | | | | | | | | | | | Americans,multiply the | | | | | | calculated GFR by 1.21. | | | | | | | | | | + + + + + + | Calcium | 8.2 (L) | 8.3 - 10.5 | [facility] | | | | | mg/dL | [facility] | | | | | | MEDICAL | | | | | | CENTER - | | | | | | LABORATORY | | + + + + + + | Albumin | 3.0 (L) | 3.2 - 5.0 g/dL | [facility] | | | | | | [facility] | | | | | | [facility] | | | | | | CENTER - | | | | | | LABORATORY | | + + + + + + | Bilirubin | 0.5Comment: This is an | 0.1 - 1.5 mg/dL | [facility] | | | Total | appended report. These | | [facility] | | | | results have been | | MEDICAL | | | | appended to a previously | | CENTER - | | | | preliminary verified | | LABORATORY | | | | report. | | | | + + + + + + | Total | 5.5 (L) | 6.0 - 7.8 g/dL | [facility] | | | Protein | | | [facility] | | | | | | MEDICAL | | | | | | CENTER - | | | | | | LABORATORY | | + + + + + + | AST | 23Comment: This is an | 10 - 42 U/L | [facility] | | | | appended report. These | | [facility] | | | | results have been | | MEDICAL | | | | appended to a previously | | CENTER - | | | | preliminary verified | | LABORATORY | | | | report. | | | | + + + + + + | ALT | 11Comment: This is an | 6 - 45 U/L | [facility] | | | | appended report. These | | [facility] | | | | results have been | | MEDICAL | | | | appended to a previously | | CENTER - | | | | preliminary verified | | LABORATORY | | | | report. | | | | + + + + + + | Alkaline | 71Comment: This is an | 40 - 110 U/L | [facility] | | | Phosphatase | appended report. These | | [facility] | | | | results have been | | MEDICAL | | | | appended to a previously | | CENTER - | | | | preliminary verified | | LABORATORY | | | | report. | | | | + + + + + + | Globulin | 2.5 | 2.1 - 3.8 g/dL | [facility] | | | | | | [facility] | | | | | | [facility] | | | | | | C[facility] - | | | | | | LABORATORY | | + + + + + + | Albumin/Karrie | 1.2 | 0.8 - 2.0 | [facility] | | | bulin Ratio | | | [facility] | | | | | | [facility] | | | | | | CENTER - | | | | | | LABORATORY | | + + + + + + | BUN/Creatin | 15.3 | | [facility] | | | ine Ratio | | | [facility] | | [...] + + | [facility] | [address] | [place] | [phone] | | [facility] | | [id number] | | | - LABORATORY | | | | + + + + + CBC with Differential (07/11/2017 3:08 PM PDT) + + + + + + | Component | Value | Ref Range | Performed | Pathologist | | | | | At | Signature | + + + + + + | White Blood | 5.2 | 4.0 - 11.0 K/uL | [facility] | | | Cells | | | [facility] | | | | | | MEDICAL | | | | | | CENTER - | | | | | | LABORATORY | | + + + + + + | Red Blood | 2.80 (L) | 3.70 - 5.20 | [facility] | | | Cells | | M/uL | [facility] | | | | | | MEDICAL | | | | | | CENTER - | | | | | | LABORATORY | | + + + + + + | Hemoglobin | 6.3 (LL)Comment: | 11.5 - 16.0 | [facility] | | | | Critical Result called | g/dL | [facility] | | | | to and read back by Liu | | MEDICAL | | | | Ricardo VANN on 07/11/2017 | | CENTER - | | | | at 15:21 by Yanet Nunez | | LABORATORY | | | | Lidia. | | | | + + + + + + | Hematocrit | 20.4 (L) | 34.0 - 47.0 % | [facility] | | | | | | [facility] | | | | | | MEDICAL | | | | | | CENTER - | | | | | | LABORATORY | | + + + + + + | MCV | 72.8 (L) | 83.0 - 101.0 fL | [facility] | | | | | | [facility] | | | | | | [facility] | | | | | | CENTER - | | | | | | LABORATORY | | + + + + + + | MCH | 22.4 (L) | 28.0 - 35.0 pg | [facility] | | | | | | [facility] | | | | | | [facility] | | | | | | CENTER - | | | | | | LABORATORY | | + + + + + + | MCHC | 30.8 (L) | 32.0 - 36.0 | [facility] | | | | | g/dL | [facility] | | | | | | MEDICAL | | | | | | CENTER - | | | | | | LABORATORY | | + + + + + + | RDW-CV | 16.3 (H) | <15.0 % | [facility] | | | | | | [facility] | | | | | | [facility]ICAL | | | | | | CENTER - | | | | | | LABORATORY | | + + + + + + | Platelet | 307 | 140 - 440 K/uL | [facility] | | | Count | | | [facility] | | | | | | MEDICAL | | | | | | CENTER - | | | | | | LABORATORY | | + + + + + + | MPV | 7.6 | fL | [facility] | | | | | | [facility] | | | | | | MEDICAL | | | | | | CENTER - | | | | | | LABORATORY | | + + + + + + | % | 63.9 | 45.0 - 82.0 % | [facility] | | | Neutrophils | | | [facility] | | | | | | MEDICAL | | | | | | CENTER - | | | | | | LABORATORY | | + + + + + + | % | 24.4 | 20.0 - 45.0 % | [facility] | | | Lymphocytes | | | [facility] | | | | | | MEDICAL | | | | | | CENTER - | | | | | | LABORATORY | | + + + + + + | % Monocytes | 9.4 | 4.0 - 12.0 % | [facility] | | | | | | [facility] | | | | | | [facility]ICAL | | | | | | CENTER - | | | | | | LABORATORY | | + + + + + + | % | 1.6 | 0.0 - 5.0 % | [facility] | | | Eosinophils | | | [facility] | | | | | | MEDICAL | | | | | | CENTER - | | | | | | LABORATORY | | + + + + + + | % Basophils | 0.7 | 0.0 - 1.0 % | [facility] | | | | | | [facility] | | | | | | MEDICAL | | | | | | CENTER - | | | | | | LABORATORY | | + + + + + + | Absolute | 3.30 | 1.80 - 8.50 | [facility] | | | Neutrophils | | K/uL | [facility] | | | | | [facility] | | | | | | C[facility] - | | | | | | LABORATORY | | + + + + + + | Absolute | 1.30 | 0.60 - 3.20 | [facility] | | | Lymphocytes | | K/uL | [facility] | | | | | | MEDICAL | | | | | | CENTER - | | | | | | LABORATORY | | + + + + + + | Absolute | 0.50 | 0.00 - 1.00 | [facility] | | | Monocytes | | K/uL | [facility] | | | | | | MEDICAL | | | | | | CENTER - | | | | | | LABORATORY | | + + + + + + | Absolute | 0.10 | 0.00 - 0.40 | [facility] | | | Eosinophils | | K/uL | [facility] | | | | | | MEDICAL | | | | | | CENTER - | | | | | | LABORATORY | | + + + + + + | Absolute | 0.00 | 0.00 - 0.10 | [facility] | | | Basophils | | K/uL | [facility] | | | | [...] | + + + + + | [facility] | [address] | [place] | [phone] | | [facility] | | [address] | | | - LABORATORY | | | | + + + + + Culture, Urine (07/11/2017 2:54 PM PDT) + + + + + + | Component | Value | Ref Range | Performed | Pathologist | | | | | At | Signature | + + + + + + | Culture | >100,000 CFU/ml | | [facility] | | | | Enterobacter cloacae | | . [facility] | | | | complexComment: Consider | | MEDICAL | | | | combination therapy for | | CENTER - | | | | serious infections.This | | LABORATORY | | | | organism is known to | | | | | | possess inducible | | | | | | beta-lactamases. | | | | | | Isolates may become | | | | | | resistant to all | | | | | | cephalosporins after | | | | | | initiation of therapy. | | | | | | Avoid | | | | | | beta-lactam/beta-lactama | | | | | | se inhibitory | | | | | | combinations. | | | | + + + + + + + + | Specimen | + + | Urine - Urine | | specimen obtained by | | clean catch | | procedure (specimen) | + + + + +--------+ + | Organism | Antibiotic | Method | Susceptibility | + + +--------+ + | Enterobacter cloacae | Cefazolin | | >=64 ug/mL: | | complex | | | Resistant | + + +--------+ + | Enterobacter cloacae | Cefoxitin | | >=64 ug/mL: | | complex | | | Resistant | + + +--------+ + | Enterobacter cloacae | Ceftazidime | | <=1 ug/mL: | | complex | | | Sensitive | + + +--------+ + | Enterobacter cloacae | Ceftriaxone | | <=1 ug/mL: | | complex | | | Sensitive | + + +--------+ + | Enterobacter cloacae | Ciprofloxacin | | <=0.25 ug/mL: | | complex | | | Sensitive | + + +--------+ + | Enterobacter cloacae | Ertapenem | | <=0.5 ug/mL: | | complex | | | Sensitive | + + +--------+ + | Enterobacter cloacae | Gentamicin | | <=1 ug/mL: | | complex | | | Sensitive | + + +--------+ + | Enterobacter cloacae | Meropenem | | <=0.25 ug/mL: | | complex | | | Sensitive | + + +--------+ + | Enterobacter cloacae | Nitrofurantoin | | 32 ug/mL: | | complex | | | Sensitive | + + +--------+ + | Enterobacter cloacae | Piperacillin + | | <=4 ug/mL: | | complex | Tazobactam | | Sensitive | + + +--------+ + | Enterobacter cloacae | Tobramycin | | <=1 ug/mL: | | complex | | | Sensitive | + + +--------+ + | Enterobacter cloacae | Trimethoprim + | | <=20 ug/mL: | | complex | Sulfamethoxazole | | Sensitive | + + +--------+ + + + + + + | Performing | Address | City/State/Zipcode | Phone Number | | Organization | | | | + + + + + | [facility] | [address] | [place] | [phone] | | [facility] | | [address] | | | - LABORATORY | | | | + + + + + Urinalysis With Microscopic (07/11/2017 2:54 PM PDT) + + + + + + | Component | Value | Ref Range | Performed | Pathologist | | | | | At | Signature | + + + + + + | Color, | Yellow | Light Yellow, | [facility] | | | Urine | | Yellow, Straw | [facility] | | | | | | MEDICAL | | | | | | CENTER - | | | | | | LABORATORY | | + + + + + + | Clarity, | Hazy (A) | Clear | [facility] | | | Urine | | | [facility] | | | | | | MEDICAL | | | | | | CENTER - | | | | | | LABORATORY | | + + + + + + | pH, Urine | 7.0 | 5.0 - 8.0 | [facility] | | | | | | [facility] | | | | | | MEDICAL | | | | | | CENTER - | | | | | | LABORATORY | | + + + + + + | Specific | 1.016 | 1.001 - 1.030 | [facility] | | | [place], | | | [facility] | | | Urine | | | MEDICAL | | | | | | CENTER - | | | | | | LABORATORY | | + + + + + + | Protein, | Negative | Negative | [facility] | | | Urine | | | [facility] | | | | | | MEDICAL | | | | | | CENTER - | | | | | | LABORATORY | | + + + + + + | Blood, | Negative | Negative | [facility] | | | Urine | | | [facility] | | | | | | MEDICAL | | | | | | CENTER - | | | | | | LABORATORY | | + + + + + + | Glucose, | Negative | Negative | [facility] | | | Urine | | | [facility] | | | | | | MEDICAL | | | | | | CENTER - | | | | | | LABORATORY | | + + + + + + | Ketones, | Negative | Negative | [facility] | | | Urine | | | [facility] | | | | | | MEDICAL | | | | | | CENTER - | | | | | | LABORATORY | | + + + + + + | Bilirubin, | Negative | Negative | [facility] | | | Urine | | | [facility] | | | | | | MEDICAL | | | | | | CENTER - | | | | | | LABORATORY | | + + + + + + | Nitrite, | Negative | Negative | [facility] | | | Urine | | | [facility] | | | | | | MEDICAL | | | | | | CENTER - | | | | | | LABORATORY | | + + + + + + | Leukocyte | Large (A) | Negative | [facility] | | | Esterase, | | | [facility] | | | Urine | | | MEDICAL | | | | | | CENTER - | | | | | | LABORATORY | | + + + + + + | Urobilinoge | Negative | 0.2 mg/dL, 1.0 | [facility] | | | n, Urine | | mg/dL, Negative | [facility] | | | | | | MEDICAL | | | | | | CENTER - | | | | | | LABORATORY | | + + + + + + | White Blood | >100 (A) | 0 - 2 /HPF | [facility] | | | Cells, | | | [facility] | | | Urine | | | MEDICAL | | | | | | CENTER - | | | | | | LABORATORY | | + + + + + + | White Blood | Few (A) | None Seen /HPF | [facility] | | | Cell | | | [facility] | | | Clumps, | | | MEDICAL | | | Urine | | | CENTER - | | | | | | LABORATORY | | + + + + + + | Red Blood | 5-10 (A) | 0 - 2 /HPF | [facility] | | | Cells, | | | [facility] | | | Urine | | | MEDICAL | | | | | | CENTER - | | | | | | LABORATORY | | + + + + + + | Squamous | 50-100 (A) | 0 - 2 /LPF | [facility] | | | Epithelial | | | [facility] | | | Cells, | | | MEDICAL | | | Urine | | | CENTER - | | | | | | LABORATORY | | + + + + + + | Bacteria, | 4+ (A) | Negative /HPF | [facility] | | | Urine | | | [facility] | | | | | | MEDICAL | | | | | | CENTER - | | | | | | LABORATORY | | + + + + + + | Mucus, | Present (A) | Negative /LPF | [facility] | | | Urine | | | [facility] | | | | | | MEDICAL | | | | | | CENTER - | | | | | | LABORATORY | | + + + + + + | Hyaline | 2-5 (A) | 0 - 2 /LPF | [facility] | | | Casts, | | | [facility] | | | Urine | | | MEDICAL | | | | | | CENTER - | | | | | | LABORATORY | | + + + + + + + + | Specimen | + + | Urine | + + + + + + + | Performing | Address | City/State/Zipcode | Phone Number | | Organization | | | | + + + + + | [facility] | [address] | [place], [place] | [phone] | | [facility] | | [address] | | | - LABORATORY | | | | + + + + + ECG 12 lead (07/11/2017 2:22 PM PDT) + + + + + + | Component | Value | Ref Range | Performed | Pathologist | | | | | At | Signature | + + + + + + | VENTRICULAR | 66 | BPM | [facility] | | | RATE EKG | | | | | + + + + + + | ATRIAL RATE | 66 | BPM | [facility] | | + + + + + + | P-R | 182 | ms | [facility] | | | INTERVAL | | | | | + + + + + + | QRS | 78 | ms | [facility] | | | DURATION | | | | | + + + + + + | Q-T | 426 | ms | [facility] | | | INTERVAL | | | | | + + + + + + | Q-T | 446 | ms | [facility] | | | INTERVAL | | | | | | (CORRECTED) | | | | | + + + + + + | P WAVE AXIS | -11 | degrees | [facility] | | + + + + + + | QRS AXIS | -6 | degrees | [facility] | | + + + + + + | T AXIS | -9 | degrees | [facility] | | + + + + + + | INTERPRETAT | Normal sinus | | [facility] | | | ION TEXT | rhythmInferior infarct , | | | | | | age | | | | | | undeterminedNonspecific | | | | | | T wave | | | | | | abnormalityAbnormal | | | | | | ECGWhen compared with | | | | | | ECG of 01-AUG-2015 | | | | | | 04:49,Inferior infarct | | | | | | is now presentConfirmed | | | | | | by NATHANAEL AGOSTO MD | | | | | | ([id number]) on 07/12/2017 | | | | | | 7:09:07 AM | | | | + + + + + + + + | Specimen | + + | | + + + + + | Narrative | Performed At | + + + | | | + + + + +---------+ + + | Performing | Address | City/State/Zipcode | Phone Number | | Organization | | | | + +---------+ + + | [facility] | | | | + +---------+ + + POC Glucose (07/11/2017 2:20 PM PDT) + +---------+ + + + | Component | Value | Ref Range | Performed | Pathologist | | | | | At | Signature | + +---------+ + + + | Glucose, | 192 (H) | 70 - 109 mg/dL | [facility] | | | POC | | | [facility] | | | | | | MEDICAL | | | | | | CENTER - | | | | | | LABORATORY | | + +---------+ + + + + + | Specimen | + + | Blood | + + + + + + + | Performing | Address | City/State/Zipcode | Phone Number | | Organization | | | | + + + + + | [facility] | [address] | [place] | [phone] | | [facility] | | [address] | | | - LABORATORY | | | | + + + + + IMAGING REPORT - EXTERNAL SCAN (10/07/2011 12:00 AM PDT) + + + | Narrative | Performed At | + + + | Ordered by an | | | unspecified provider. | | + + + documented in this encounter Visit Diagnoses + + | Diagnosis | + + | Aortic valve stenosis, etiology of cardiac valve disease unspecified | + + | Chronic ischemic heart disease Chronic ischemic heart disease, unspecified | + + | Secondary hypertension Other secondary hypertension, unspecified | + + | Mixed sleep apnea Other organic sleep apnea | + + | UGI bleed Hemorrhage of gastrointestinal tract, unspecified | + + | Acute blood loss anemia Acute posthemorrhagic anemia | + + | Anastomotic ulcer S/P gastric bypass | + + | Coronary arteriosclerosis in [place] artery Coronary atherosclerosis of [place] | | coronary artery | + + | Hypertension Unspecified essential hypertension | + + | Diabetes type 2, controlled (HCC) Type II or unspecified type diabetes mellitus | | without mention of complication, not stated as uncontrolled | + + documented in this encounter Administered Medications + +--------+ +-------+------+------+ | Medication Order | MAR | Action | Dose | Rate | Site | | | Action | Date | | | | + +--------+ +-------+------+------+ | atorvaSTATin (LIPITOR) tablet | Given | 07/12/19 | 80 mg | | | | 80 mg 80 mg, Oral, NIGHTLY, | | 18 8:06 | | | | | First dose on 07/11/17 at 2100 | | PM PDT | | | | + +--------+ +-------+------+------+ +---+---+ | | | +---+---+ + +-------+ +------+---+---+ | busPIRone (BUSPAR) tablet 5 mg | Given | 07/13/19 | 5 mg | | | | 5 mg, Oral, 2 TIMES DAILY, First | | 18 9:11 | | | | | dose on 07/11/17 at 2100 | | AM PDT | | | | + +-------+ +------+---+---+ +-------+ +------+---+---+ | Given | 07/12/19 | 5 mg | | | | | 18 8:06 | | | | | | PM PDT | | | | +-------+ +------+---+---+ +---+---+ | | | +---+---+ + +---------+ +-----+-------+---+ | cefTRIAXone (ROCEPHIN) 1 g in | New Bag | 07/12/19 | 1 g | 100 | | | sodium chloride 0.9% 50 mL IVPB | | 18 3:56 | | mL/hr | | | 1 g, Intravenous, Administer over | | PM PDT | | | | | 30 Minutes, ONCE, 07/11/17 at | | | | | | | 1545, For 1 dose, Activate | | | | | | | system and mix before use., | | | | | | | Indications: UTI - LOWER | | | | | | + +---------+ +-----+-------+---+ +---+---+ | | | +---+---+ + +---------+ +-----+-------+---+ | cefTRIAXone (ROCEPHIN) 1 g in | New Bag | 07/13/19 | 1 g | 100 | | | sodium chloride 0.9% 50 mL IVPB | | 18 4:37 | | mL/hr | | | 1 g, Intravenous, Administer over | | PM PDT | | | | | 30 Minutes, EVERY 24 HOURS | | | | | | | (Daily), First dose on Mon | | | | | | | 07/12/17 at 1600, Activate system | | | | | | | and mix before use., Indications: | | | | | | | UTI - LOWER | | | | | | + +---------+ +-----+-------+---+ + +---+ | | | + +---+ | dextrose 50% injection 12.5 g | | | 12.5 g, Intravenous, PRN, Low | | | Blood Sugar, Starting 07/11/17 | | | at 1804 | | + +---+ | | | + +---+ + +-------+ +--------+---+---+ | docusate sodium (COLACE) | Given | 07/13/19 | 100 mg | | | | capsule 100 mg 100 mg, Oral, 2 | | 18 9:12 | | | | | TIMES DAILY, First dose on Sun | | AM PDT | | | | | 07/11/17 at 2100, 1st line agent | | | | | | | for constipation relief., | | | | | | + +-------+ +--------+---+---+ +---+---+ | | | +---+---+ + +-------+ +-------+---+---+ | DULoxetine (CYMBALTA) DR | Given | 07/13/19 | 80 mg | | | | capsule 80 mg 80 mg, Oral, | | 18 9:12 | | | | | DAILY, First dose on 07/11/17 | | AM PDT | | | | | at 1830, Do not open capsule., | | | | | | + +-------+ +-------+---+---+ +---+---+ | | | +---+---+ + +---------+ +--------+-------+---+ | iron sucrose (VENOFER) 400 mg | New Bag | 07/13/19 | 400 mg | 108 | | | in sodium chloride 0.9% 250 mL | | 18 1:30 | | mL/hr | | | IVPB 400 mg, Intravenous, | | PM PDT | | | | | Administer over 150 Minutes, | | | | | | | ONCE, 07/12/17 at 1315, For 1 | | | | | | | dose | | | | | | + +---------+ +--------+-------+---+ +---+---+ | | | +---+---+ + +-------+ +-------+---+---+ | isosorbide mononitrate (IMDUR) | Given | 07/13/19 | 30 mg | | | | ER tablet 30 mg 30 mg, Oral, | | 18 9:12 | | | | | DAILY, First dose on 07/11/17 | | AM PDT | | | | | at 1830, Tablet may be cut where | | | | | | | scored but do not crush., | | | | | | + +-------+ +-------+---+---+ +---+---+ | | | +---+---+ + +-------+ +---------+---+---+ | levothyroxine (SYNTHROID) | Given | 07/13/19 | 137 mcg | | | | tablet 137 mcg 137 mcg, Oral, | | 18 6:11 | | | | | DAILY BEFORE BREAKFAST, First | | AM PDT | | | | | dose on 07/11/17 at 1830, Give | | | | | | | before breakfast., | | | | | | + +-------+ +---------+---+---+ +---+---+ | | | +---+---+ + +-------+ +-------+---+---+ | pantoprazole (PROTONIX) DR | Given | 07/13/19 | 40 mg | | | | tablet 40 mg 40 mg, Oral, 2 | | 18 5:01 | | | | | TIMES DAILY BEFORE MEALS, First | | PM PDT | | | | | dose on Wed07/12/17 at 1315, Do | | | | | | | not cut or crush., | | | | | | + +-------+ +-------+---+---+ +---+---+ | | | +---+---+ + +-------+ +-------+---+---+ | pantoprazole (PROTONIX) | Given | 07/12/19 | 40 mg | | | | injection 40 mg 40 mg, | | 18 3:54 | | | | | Intravenous, ONCE, 07/11/17 at | | PM PDT | | | | | 1545, For 1 dose, If | | | | | | | reconstituting, mix each 40 mg | | | | | | | vial with 10 mL NS to make 4 | | | | | | | mg/mL., | | | | | | + +-------+ +-------+---+---+ +---+---+ | | | +---+---+ + +-------+ +-------+---+---+ | pantoprazole (PROTONIX) | Given | 07/13/19 | 40 mg | | | | injection 40 mg 40 mg, | | 18 9:11 | | | | | Intravenous, 2 TIMES DAILY, First | | AM PDT | | | | | dose (after last modification) | | | | | | | on 07/11/17 at 2100 | | | | | | + +-------+ +-------+---+---+ +-------+ +-------+---+---+ | Given | 07/12/19 | 40 mg | | | | | 18 8:07 | | | | | | PM PDT | | | | +-------+ +-------+---+---+ +---+---+ | | | +---+---+ + +-------+ +------+---+---+ | polyethylene glycol (MIRALAX) | Given | 07/13/19 | 17 g | | | | powder 17 g 17 g, Oral, DAILY, | | 18 9:11 | | | | | First dose on 07/11/17 at | | AM PDT | | | | | 1830, If docusate and senna | | | | | | | ineffective or not ordered., | | | | | | + +-------+ +------+---+---+ +---+---+ | | | +---+---+ + +---------+ +--------+-------+---+ | sodium chloride 0.9% (NS) bolus | New Bag | 07/12/19 | 1,000 | 2000 | | | 1,000 mL 1,000 mL, Intravenous, | | 18 3:08 | mLs | mL/hr | | | Administer over 30 Minutes, | | PM PDT | | | | | ONCE, 07/11/17 at 1435, For 1 | | | | | | | dose | | | | | | + +---------+ +--------+-------+---+ +---+---+ | | | +---+---+ + +---------+ +---+-------+---+ | sodium chloride 0.9% with KCl | New Bag | 07/13/19 | | 100 | | | 20 mEq/L (NS + KCL 20) infusion | | 18 12:40 | | mL/hr | | | at 100 mL/hr, Intravenous, | | AM PDT | | | | | CONTINUOUS, Starting 07/11/17 | | | | | | | at 1830, For 30 hours | | | | | | + +---------+ +---+-------+---+ +---+---+ | | | +---+---+ documented in this encounter
--- OUTSIDE RECORDS SUMMARY | ~2020-02-03 | XMS | Encounter Summary ---
Demographics + + + | Address | [address] | | | [place] [address] | + + + | Home Phone | | + + + | Preferred Language | Unknown | + + + | Marital Status | Single | + + + | Yazidism Affiliation | [id number] | + + + | Race | White | + + + | Ethnic Group | Not or | + + + Author + + + | Author | [facility] | | | and [place] | + + + | Organization | [facility] | | | [...] Team Providers + +------+ + | Care Client Server Developer Name | Role | Phone | + +------+ + PCP | Unavailable | + +------+ + Encounter Details +--------+ + + + + | Date | Type | Department | Care Team | Description | +--------+ + + + + | 07/11/ | Imaging | [facility] ALEXANDRA | Provider, | | | 2019 | Exam | [facility] | [facility] [address] | | | | | IMAGING [address] | | | | | [address] | [place] [address] | | | | | [place] [address] | | | | | | [phone] | | | +--------+ + + + [...] + | ECHO COMPLETE | Routin | 10/01/2015 | | Results for this | | | e | 11:20 AM | | procedure are in the | | | | PDT | | results section. | + +--------+ + + + documented in this encounter Results ECHO Complete (10/01/2015 11:20 AM PDT) + + | Specimen | + + | | + + + + + | Narrative | Performed At | + + + | External films for comparison only | [facility] | | | | | No results will be in the chart. | | + + + + +---------+ + + | Performing | Address | City/State/Zipcode | Phone Number | | Organization | | | | + +---------+ + + | [facility] | | | | + +---------+ + + documented in this encounter Visit Diagnoses Not on filedocumented in this encounter"
--- OUTSIDE RECORDS SUMMARY | ~2020-02-03 | XMS | Encounter Summary ---
Demographics + + + | Address | [address] | | | [place] [address] | + + + | Home Phone [...] Team Providers + +------+ + | Care Banquet Kitchen Supervisor Name | Role | Phone | + +------+ + PCP | Unavailable | + +------+ + Encounter Details +--------+ + + + + | Date | Type | Department | Care Team | Description | +--------+ + + + + | 10/04/ | Hospital | [facility] | Conversion | Coronary artery | | 2019 | Encounter | [facility] | Transaction, | disease involving | | | | CLINICAL DECISION | Provider Unknown | [place] coronary | | | | [address] | | artery of [place] | | | | [place], [place] | | heart with unstable | | | | [address] | Teresa Guadalupe MD | angina pectoris | | | | [phone] | [address] | ([facility]); Status post | | | | | [place] [address] | coronary artery | | | | | [phone] | stent placement | | | | | | | [...] + + + | Blood Pressure | 123/60 | 10/04/2018 9:14 PM | | | | | PDT | | + + + + + | Pulse | 62 | 10/04/2018 9:14 PM | | | | | PDT | | + + + + + | Temperature | 36.7 C (98.1 F) | 10/04/2018 9:14 PM | | | | | PDT | | + + + + + | Respiratory Rate | 18 | 10/04/2018 9:14 PM | | | | | PDT | | + + + + + | Oxygen Saturation | - | - | | + + + + + | Inhaled Oxygen | - | - | | | Concentration | | | | + + + + + | Weight | 72.9 kg (160 lb 11.5 | 10/04/2018 9:14 PM | | | | oz) | PDT | | + + + + + | Height | 162.6 cm (5' 4") | 10/04/2018 9:14 PM | | | | | PDT | | + + + + + | Body Mass Index | 27.59 | 10/04/2018 9:14 PM | | | | | PDT [...] clopidogrel | Take 1 tablet by | 30 | 5 | 09/27/19 | | | (PLAVIX) 75 mg | [...] +---------+ + + | metoprolol | Take 1 tablet by | 30 | 5 | 09/16/19 | | | succinate | mouth Daily. | tablet | | 19 | | | (TOPROL-XL) 25 mg 24 | | | | | | | hr tablet | | | | | | + + + +---------+ + + | Multiple | Take 1 tablet by | | 0 | | | | Vitamins-Minerals | mouth Daily. | | | | | | (MULTIVITAMIN PO) | | | | | | + + + +---------+ + + | nitroglycerin | Place 1 tablet under | 25 | 5 | 09/01/19 | | | (NITROSTAT) 0.4 mg | the tongue every 5 | tablet | | 19 | | | SL tablet | minutes as [...] documented as of this encounter Progress Notes Conversion Transaction, Provider Unknown - 10/04/2018 9:14 PM PDTFormatting of this note m ight be different from the original. Nurse Progress Note by Chris Alejandro RN at 10/04/182113 Author: Chris Alejandro RN Service: (none) Author Type: Registered Nurse Filed: 10/04/182114 Date of Service: 10/04/182113 Status: Signed Family Practice Nurse Practitioner: Chris Alejandro RN (Registered Nurse) Patient stable at time of discharge. Discharge criteria met. Patient ate, voided, and ambul ated. Pain and nausea well controlled. Dressing CDI. Discharge instructions reviewed and giv en to patient. All questions answered. Discharged via private vehicle with family. onver gigi Transaction, Provider Unknown - 10/04/2018 7:55 PM PDT Progress Notes by Shiloh Nowak RPH at 10/04/181954 Author: Shiloh Nowak RPH Service: Pharmacy Author Type: Pharmacist Filed: 10/04/181954 Date of Service: 10/04/181954 Status: Signed Family Practice Nurse Practitioner: Shiloh Nowak RPH (Pharmacist) Renal Dosing Monitoring: Le Rollins 73 y.o. female Pharmacy dosing for renal function per Dr. Teresa Guadalupe Serum creatinine: 0.89 mg/dL 10/04/18 1041 Estimated creatinine clearance: 55.9 mL/min Plan per protocol: No medications need adjustment at this time Pharmacy will continue to monitor changes in medication orders and renal function and will adjust accordingly. 10/04/2018 7:55 PM Pharmacist: Shiloh Nowak onver gigi Transaction, Provider Unknown - 10/04/2018 7:24 PM PDT Nurse Progress Note by Ole Andersen RN at 10/04/181923 Author: Ole Andersen RN Service: (none) Author Type: Registered Nurse Filed: 10/04/181923 Date of Service: 10/04/181923 Status: Signed Family Practice Nurse Practitioner: Ole Andersen RN (Registered Nurse) Report given to SOO Perez who will assume patient care at this time. End of shift audit completed docume nted in this encounter H&P Notes Teresa Guadalupe MD - 10/04/2018 1:15 PM PDTFormatting of this note might be different from t he original. H&P by Teresa Guadalupe MD at 10/04/181314 Author: Teresa Guadalupe MD Service: Cardiology Author Type: Physician Filed: 10/04/18 6209 Date of Service: 10/04/181314 Status: Signed Family Practice Nurse Practitioner: Teresa Guadalupe MD (Physician) [facility] Service: Cardiology/[facility] History and Physical RE: Le Rollins : 1945 DATE OF SERVICE: 10/04/2018 PROVIDER:Teresa Guadalupe SOURCE OF HISTORY: Patient and the chart CHIEF COMPLAINT: Exertional chest pain HISTORY OF PRESENT ILLNESS: Ms. Le Rollins is a pleasant 73-year-old lady with history of coronary arter y disease, diabetes mellitus, paroxysmal atrial fibrillation, hypertension and previous CVA who presented for elective PCI of right coronary artery. She was seen by Dr. Gonzáles at [facility] in [place] and underwent core angiography for evaluation of recur rent chest pain described as tightness in the mid of the chest with mild to moderate exertio n. She was found to have widely patent stent in her obtuse marginal branch however severe s tenosis of her right coronary artery and therefore she was referred for coronary interventio n. Patient last chest discomfort was about 2 days ago. She does feel some palpitation as w ell that she is known to have paroxysmal atrial fibrillation and was treated with Eliquis. Her activities is limited by her previous CVA and she does use a walker to ambulate if she g ets chest discomfort with relatively mild to moderate exertion. She is known to have modera te aortic stenosis with peak gradient of 45 mmHg. She has not had orthopnea, PND or lower e xtremity edema but she does use a CPAP machine. Currently she is pain-free. She stopped he r Eliquis yesterday. She was started on Plavix in preparation for her procedure. PAST MEDICAL HISTORY: Past Medical History Diagnosis Date Anxiety Arthralgia Atrial fibrillation (HCC) Coronary artery disease CVA (cerebral infarction) Depression Diabetes mellitus, type 2 (HCC) Fatty liver Fibromyalgia GERD (gastroesophageal reflux disease) Hyperlipidemia Hypertension Hypothyroidism Old myocardial infarction Sleep apnea Stroke (HCC) Visual disturbance Vitamin D deficiency FAMILY HISTORY: Family History Problem Relation Age of Onset Hypertension Mother Heart disease Father SOCIAL HISTORY: Social History Substance Use Topics Smoking status: Never Smoker Smokeless tobacco: Never Used Alcohol use No CURRENT MEDICATIONS: Prescriptions Prior to Admission Medication Sig Dispense Refill Last Dose acetaminophen (TYLENOL) 325 MG tablet Take 325 mg by mouth every 6 (six) hours as neede d for Pain. 10/03/2018 at Unknown time amLODIPine (NORVASC) 2.5 MG tablet Take 2.5 mg by mouth daily. 10/03/2018 at Unknown t alessia atorvastatin (LIPITOR) 40 MG tablet Take 80 mg by mouth nightly. 10/03/2018 at Unknown time calcium citrate-vitamin D (CITRACAL+D) 315-200 mg-unit per tablet Take 1 tablet by mout h 2 (two) times daily with meals. 10/03/2018 at Unknown time cholecalciferol 5000 units capsule Take 5,000 Units by mouth daily. 10/03/2018 at 1640 clopidogrel (PLAVIX) 75 MG tablet Take 1 tablet by mouth daily. 90 tablet 3 10/03/2018 a t 1630 Cyanocobalamin (VITAMIN B-12) [address] under the tongue daily. 10/03/2018 at Unknown time DULoxetine (CYMBALTA) [address] capsule Take 80 mg by mouth daily. 10/03/2018 at Unknow n time isosorbide mononitrate (IMDUR) 30 MG 24 hr tablet Take 1 tablet by mouth daily. 90 tabl et 3 10/03/2018 at Unknown time levothyroxine (SYNTHROID) 150 MCG tablet Take 137 mcg by mouth every morning before yelena akfast. 10/03/2018 at Unknown time lisinopril-hydrochlorothiazide (PRINZIDE,ZESTORETIC) 20-25 MG per tablet Take 1 tablet by mouth daily. 10/03/2018 at Unknown time metoprolol (LOPRESSOR) 25 MG tablet Take 25 mg by mouth 2 (two) times daily. 9 at Unknown time MULTIPLE VITAMIN PO Take by mouth daily. 10/03/2018 at Unknown time pantoprazole (PROTONIX) 40 MG injection Inject 40 mg into the vein every morning before breakfast. 10/03/2018 at Unknown time QUEtiapine (SEROQUEL) 25 MG tablet Take 25 mg by mouth 2 (two) times daily. 10/03/2018 at Unknown time Biotin 5 MG CAPS Take 5 mg by mouth. Not Taking at Unknown time busPIRone (BUSPAR) 5 MG tablet Take 5 mg by mouth 2 (two) times daily. Not Taking at Unknown time clonazePAM (KLONOPIN) 0.5 MG tablet Take 0.5 mg by mouth 2 (two) times daily as needed for Anxiety. Not Taking at Unknown time diclofenac (VOLTAREN) 1 % Apply 2 g topically 3 (three) times daily. Taking EPINEPHrine 0.3 MG/0.3ML auto-injector Inject 0.3 mg into the muscle as needed. Not T aking at Unknown time Homeopathic Products (LEG CRAMP RELIEF) TABS Take 1 tablet by mouth daily. Not Taking at Unknown time metFORMIN (GLUCOPHAGE) 500 MG tablet Take 500 mg by mouth daily with breakfast. Not T aking at Unknown time nitroGLYCERIN (NITROSTAT) 0.[address] 0.4 mg under the tongue every 5 (five) minutes as needed for Chest pain. Taking ALLERGIES: Allergies Allergen Reactions Abilify [Aripiprazole] Anaphylaxis Bee Venom Anaphylaxis Clonidine Anaphylaxis Clonidine Derivatives Anaphylaxis Insulin Glargine Anaphylaxis Shellfish Allergy Anaphylaxis Actos [Pioglitazone] Edema Humalog [Insulin Lispro] Other (See Comments) Headaches Metoprolol Tartrate [Metoprolol] Edema REVIEW OF SYSTEMS: Constitutional: Positive for fatigue. No fever, chills, and rigors. No report of weight c hange. HEENT: Negative for nosebleeds, ear discharge, nasal congestion or soar throat. Eyes: Negative for visual disturbance, redness, or secretion. Respiratory: Negative for cough, sputum production, hemoptysis, wheezing. Positive for exer tional shortness of breath. Cardiovascular: Negative for palpitations and no syncope. Negative for orthopnea. Positiv e chest pain or tightness. No LE edema. Gastrointestinal: Negative for nausea, vomiting, diarrhea, abdominal pain and blood in stoo l. Endocrine: Positive for diabetes mellitus Genitourinary: Negative for dysuria or hematuria. Musculoskeletal: Negative for myalgias. Positive for back pain and arthralgias. Skin: Negative for rash. Neurological: Positive for mild right-sided weakness. Hematological: No significant bruising. Psychiatric/Behavioral: No depression or anxiety. PHYSICAL EXAM: BP 160/69 (BP Location: Right upper arm) | Pulse 60 | Temp 98.4 F (36.9 C) (Oral) | Resp 18 | Ht 1.626 m (5' 4") | Wt 72.9 kg (160 lb 11.5 oz) | SpO2 100% | BMI 2 7.59 kg/m No intake or output data in the 24 hours ending 10/04/18 1315 GENERAL APPEARANCE: Alert, oriented, cooperative, no distress, appears stated age. HEENT: No xanthelasmas. Extraocular movements were intact. No jaundice. Pupiles round and reactive. NECK: No JVD, lymphadenopathy. Trachea is at midline. Thyroid is not palpable. Carotid ups trokes normal. No carotid bruit heard. CARDIAC: Regular rhythm and rate. There is normal S1 and decreased S2. No galop. There is 2/6 to 3/6 systolic ejection murmur best heard at the upper right sternal border. Pedal pul ses intact. CHEST: Normal bilateral symmetrical chest excursion. Good bilateral air entry with no crack les or wheezing. No evidence of dullness. ABDOMEN: Soft and lax. No tenderness or guarding. No palpable organs. Active bowel sounds . No pulsatile mass felt. EXTREMITIES: No lower extremities edema. No varicose veins seen. NEURO: Alert and oriented times three with no focal deficit. Cranial nerves are grossly no rmal. SKIN: Warm and dry. No rash. Psych: Normal affect and mood. Lab Review Lab Results Component Value Date NA 142 10/04/2018 K 4.7 10/04/2018 CL 106 10/04/2018 CO2 28 10/04/2018 BUN 18 10/04/2018 CREATININE 0.89 10/04/2018 No results found for: CKTOTAL, CKMB, CKMBINDEX, TROPONINI Lab Results Component Value Date WBC 6.79 10/04/2018 HGB 13.3 10/04/2018 HCT 39.6 10/04/2018 MCV 94.3 10/04/2018 PLT 211 10/04/2018 Lab Results Component Value Date GLUF 152 (H) 10/04/2018 No results found for: INR Imaging Nuclear Stress Test on 07/12/2018 shows, Persantine EKG is negative, normal Persantine sest amibi myocardial perfusion imaging study, normal left ventricular size, wall thickness and m otion, preserved left ventricular systolic function, LVEF by gated SPECT is 80%, by Alicia walters MD. Echocardiogram on 07/15/2018 shows, mild left atrial dilatation, normal left ventricular si ze, wall thickness and motion, preserved left ventricular systolic function, LVEF is 70-75%, grade 1 left ventricular diastolic dysfunction, moderately thickened and calcified trileafl et aortic valve with moderate calcific aortic valve stenosis, right coronary cusp is immobil e, there is a mild to moderate central aortic valve insufficiency, mildly thickened and calc ified mitral valve suggesting myxomatous change, there is a trace central mitral valve regur gitation, mild mitral annular calcification, mild tricuspid valve regurgitation, borderline pulmonary hypertension with a peak systolic pressure of 35-40 mmHg, normal IVC with normal r espiratory collapse, by Alicia Gonzáles MD. Cardiac catheterization 09/26/2018 CONCLUSIONS: 1. Severe single-vessel coronary disease; 90% stenosis at the midportion of the dominant RCA, right after the mid portion stent.Stent of the OM is patent. 2. There is a right dominate circulation. 3. LV systolic function is normal, with an estimated LV ejection fraction of 65%. 4. Systemic blood pressure is mildly elevated. 5. Hemodynamics consistent with mild aortic stenosis.There is also mild to moderate aortic valve insufficiency. 6. Normal right-sided pressure.Normal wedge pressure. 7. There was successful Angio Seal placement to the puncture site in the right femoral artery. Scores: 1. [id number] Score: 6 2. [place] Anginal Score: 3 3. NYHA Score: 0 ASSESSMENT: 1. Angina pectoris with severe stenosis of right coronary artery 2. Coronary artery disease, status post stenting of the second obtuse marginal branch with 2.5 x 12 mm Promus drug-eluting stent on 07/27/2015 3. Moderate aortic stenosis 4. Hypertension 5. Paroxysmal atrial fibrillation this mellitus type II 6. Hyperlipidemia 7. History of CVA with minimal residual 8. Sleep apnea, using CPAP Moderate Sedation Presedation Assessment completed. ASA Classification: ASA 3: Patient with a severe systemic disease Mallampati Classification: II: Visibility of hard and soft palate, upper portion of tonsil s and uvula PLAN: Ms. Rollins presents with increasing chest pain and shortness of breath. Although she has aortic stenosis that appears to be only moderate. Her core angiography showed patent stent in the obtuse marginal however subtotal occlusion of a large dominant RCA and therefore she was referred for coronary angiography and coronary intervention. Informed consent was obtai jenelle after benefits and risks of the procedure were discussed fully with her in the presence of her son. We will proceed from the right radial artery approach. *This report has been prepared using a voice recognition system. The report was reviewed fo r accuracy, however, sound-alike word errors, addition and/or deletions may occur. If there is any question about this report please contact me. Teresa Guadalupe MD 10/04/2018 1:15 PM documented in this enco unter Miscellaneous Notes Op Note - Teresa Guadalupe MD - 10/04/2018 5:54 PM PDTFormatting of this note might be differ ent from the original. Brief Op Note by Teresa Guadalupe MD at 10/04/181753 Author: Teresa Guadalupe MD Service: Cardiology Author Type: Physician Filed: 10/04/181758 Date of Service: 10/04/181753 Status: Signed Family Practice Nurse Practitioner: Teresa Guadalupe MD (Physician) Brief procedure note and findings: PTCA supported stenting of right coronary artery with 3.0 x 16 mm Synergy drug-eluting sten t was done without immediate complications Recommendations: Continue current medical regimen History and Risk Factors: - essential hypertension, without renal disease, with hypertensive heart disease (without h eart failure) - has family history of premature CAD - CAD of [place] artery with unstable angina - past NV, occured over 28 days prior to admission - prior PCI, greater than 1 year ago - hyperlipidemia, pure hypercholesterolemia - peripheral arterial disease - cerebrovascular disease ( past history of cerebrovascular accident (CVA)) - diabetes (type 2 controlled (Hgb A1C < 6.5) with complications, not using insulin,) - hemoglobin: 13.3 g/dL - serum creatinine: 0.89 mg/dL Clinical Evaluation: CAD presentation: Unstable angina (within 60 days) LEYDI Score: 5 (>65 years old, >3 risk factors, >1 angina episodes in last 24 hrs, CAD >50% Use of asprin in last 7 days) CCS angina class (last 2 weeks): Class III NYHA Heart Failure Class (last 2 weeks): None Cardiogenic Shock within 24 hours: No Cardiac Arrest within 24 hours: No Procedural Details: IABP: No PCI Status: Urgent LVEF: >=50 Cardiogenic Shock at Start of PCI: No Primary Arterial Access: Radial Multivessel CAD: Yes Number of Lesions: 1 Lesion 1: RCA Pre: 90% Post: 0% CREDIT OPERATIONS SPECIALIST: No LEYDI: Pre - 3; Post - 3 Complexity: Non-C - Thrombus: No Bifurcation: No Dissection: No Perforation: No Stent: 3.0 x 16 mm Synergy drug-eluting stent Stent Use: IGNACIA only with diameter >3 mm and length <30 mm Frailty score 3 Teresa Guadalupe M.D., F.A.C.C. documented in this enco unter Plan of Treatment Not on filedocumented as of this encounter Procedures + +--------+ + + + | Procedure Name | Priori | Date/Time | Associated Diagnosis | Comments | | | ty | | | | + +--------+ + + + | ACTIVATED CLOTTING | Routin | 10/04/2018 | | Results for this | | TIME | e | 2:20 PM | | procedure are in the | | | | PDT | | results section. | + +--------+ + + + | POC GLUCOSE | Routin | 10/04/2018 | | Results for this | | | e | 10:47 AM | | procedure are in the | | | | PDT | | results section. | + +--------+ + + + | EXTERNAL LAB: CBC | Routin | 10/04/2018 | | Results for this | | | e | 10:41 AM | | procedure are in the | | | | PDT | | results section. | + +--------+ + + + | BASIC METABOLIC | Routin | 10/04/2018 | | Results for this | | PANEL | e | 10:41 AM | | procedure are in the | | | | PDT | | results section. | + +--------+ + + + documented in this encounter Results Activated clotting time (10/04/2018 2:20 PM PDT) + + + + + + | Component | Value | Ref Range | Performed | Pathologist | | | | | At | Signature | + + + + + + | Activated | 351 (H)Comment: Testing | 74 - 137 | EXTERNAL | | | Clotting | performed at [facility];888 | seconds | LAB | | | time, POC | [address];[place] | | | | | | [address] | | | | + + + + + + + + | Specimen | + + | | + + + +---------+ + + | Performing | Address | City/State/Zipcode | Phone Number | | Organization | | | | + +---------+ + + | EXTERNAL LAB | | | | + +---------+ + + POC Glucose (10/04/2018 10:47 AM PDT) + + + + + + | Component | Value | Ref Range | Performed | Pathologist | | | | | At | Signature | + + + + + + | Glucose, | 138 (H)Comment: Testing | 65 - 99 mg/dL | EXTERNAL | | | Fingerstick | performed at [facility];888 | | LAB | | | | [address];[place] | | | | | | [address] | | | | + + + + + + + + | Specimen | + + | | + + + +---------+ + + | Performing | Address | City/State/Zipcode | Phone Number | | Organization | | | | + +---------+ + + | EXTERNAL LAB | | | | + +---------+ + + External Lab: CBC (10/04/2018 10:41 AM PDT) + + + + + + | Component | Value | Ref Range | Performed | Pathologist | | | | | At | Signature | + + + + + + | WBC | 6.79 | 3.80 - 11.00 | EXTERNAL | | | | | K/uL | LAB | | + + + + + + | Non- | 4.19 | 3.70 - 5.10 | EXTERNAL | | | Red Blood | | M/uL | LAB | | | Cells | | | | | | Counted | | | | | + + + + + + | Hemoglobin | 13.3 | 11.3 - 15.5 | EXTERNAL | | | | | g/dL | LAB | | + + + + + + | Hematocrit, | 39.6 | 34.0 - 46.0 % | EXTERNAL | | | POC | | | LAB | | + + + + + + | MCV | 94.3 | 80.0 - 100.0 fl | EXTERNAL | | | | | | LAB | | + + + + + + | MCH | 31.6 | 27.0 - 34.0 pg | EXTERNAL | | | | | | LAB | | + + + + + + | MCHC | 33.5 | 32.0 - 35.5 | EXTERNAL | | | | | g/dL | LAB | | + + + + + + | RDW-CV | 46.8 | 37 - 53 fl | EXTERNAL | | | | | | LAB | | + + + + + + | Platelet | 211 | 150 - 400 K/uL | EXTERNAL | | | Count | | | LAB | | | Plasma | | | | | + + + + + + | MPV | 8.7 | fl | EXTERNAL | | | | | | LAB | | + + + + + + | Differentia | AUTOMATED | | EXTERNAL | | | l Type | | | LAB | | + + + + + + | % Segmented | 62.63 | % | EXTERNAL | | | | | | LAB | | | Neutrophils | | | | | + + + + + + | % | 24.15 | % | EXTERNAL | | | Lymphocytes | | | LAB | | + + + + + + | % Monocytes | 9.40 | % | EXTERNAL | | | | | | LAB | | + + + + + + | % | 2.89 | % | EXTERNAL | | | Eosinophils | | | LAB | | + + + + + + | % Basophils | 0.93 | % | EXTERNAL | | | | | | LAB | | + + + + + + | Absolute | 4.25 | 1.90 - 7.40 | EXTERNAL | | | Segmented | | K/uL | LAB | | | Neutrophils | | | | | + + + + + + | Absolute | 1.64 | 1.00 - 3.90 | EXTERNAL | | | Lymphocytes | | K/uL | LAB | | + + + + + + | Absolute | 0.64 | 0.00 - 0.80 | EXTERNAL | | | Monocytes | | K/uL | LAB | | + + + + + + | Absolute | 0.20 | 0.00 - 0.50 | EXTERNAL | | | Eosinophils | | K/uL | LAB | | + + + + + + | Absolute | 0.06Comment: Testing | 0.00 - 0.10 | EXTERNAL | | | Basophils | performed at [facility];888 | K/uL | LAB | | | | [address];[place], [place] | | | | | | [address] | | | | + + + + + + + + | Specimen | + + | Blood specimen | | (specimen) | + + + +---------+ + + | Performing | Address | City/State/Zipcode | Phone Number | | Organization | | | | + +---------+ + + | EXTERNAL LAB | | | | + +---------+ + + Basic Metabolic Panel (10/04/2018 10:41 AM PDT) + + + + + + | Component | Value | Ref Range | Performed | Pathologist | | | | | At | Signature | + + + + + + | Na | 142 | 135 - 145 | EXTERNAL | | | | | mmol/L | LAB | | + + + + + + | K | 4.7 | 3.5 - 4.9 | EXTERNAL | | | | | mmol/L | LAB | | + + + + + + | Cl | 106 | 99 - 109 mmol/L | EXTERNAL | | | | | | LAB | | + + + + + + | CO2 | 28 | 23 - 32 mmol/L | EXTERNAL | | | | | | LAB | | + + + + + + | Anion Gap | 13 | 5 - 20 mmol/L | EXTERNAL | | | | | | LAB | | + + + + + + | Glucose, | 152 (H) | 65 - 99 mg/dL | EXTERNAL | | | Fasting | | | LAB | | + + + + + + | BUN | 18 | 8 - 25 mg/dL | EXTERNAL | | | | | | LAB | | + + + + + + | Creatinine | 0.89 | 0.50 - 1.00 | EXTERNAL | | | | | mg/dL | LAB | | + + + + + + | BUN/Creatin | 20 | | EXTERNAL | | | ine Ratio | | | LAB | | + + + + + + | Calcium | 8.7 | 8.5 - 10.5 | EXTERNAL | | | | | mg/dL | LAB | | + + + + + + | Estimated | >60Comment: GFR <60: | mL/min/1.73m2 | EXTERNAL | | | GFR | CHRONIC KIDNEY DISEASE, | | LAB | | | | IF FOUND OVER A 3 MONTH | | | | | | PERIOD.GFR <15: KIDNEY | | | | | | FAILURE.FOR | | | | | | AMERICANS, MULTIPLY THE | | | | | | CALCULATED GFR BY | | | | | | 1.210.This eGFR is | | | | | | calculated using the | | | | | | MDRD IDMS traceable | | | | | | equation.Testing | | | | | | performed at [facility] | | | | | | [facility];[place], [place] | | | | | | [address] | | | | + + + + + + + + | Specimen | + + | Blood specimen | | (specimen) | + + + +---------+ + + | Performing | Address | City/State/Zipcode | Phone Number | | Organization | | | | + +---------+ + + | EXTERNAL LAB | | | | + +---------+ + + documented in this encounter Visit Diagnoses + + | Diagnosis | + + | Coronary artery disease involving [place] coronary artery of [place] heart with unstable | | angina pectoris (HCC) | + + | Status post coronary artery stent placement Postsurgical percutaneous transluminal | | coronary angioplasty status | + + documented in this encounter
--- OUTSIDE RECORDS SUMMARY | ~2020-02-03 | XMS | Encounter Summary ---
Demographics + + + | Address | [address] | | | [place] [address] | + + + | Home Phone | | + + + | Preferred Language | Unknown | + + + | Marital Status | Single | + + + | Christianity Affiliation | 1013 | + + + | Race | White | + + + | Ethnic Group | Not or | + + + Author + + + | Author | [facility] | | | and [place] | + + + | Organization | [facility] | | | [...] Team Providers + +------+ + | Care Radio Announcer Name | Role | Phone | + +------+ + PCP | Unavailable | + +------+ + Reason for Visit + + + | Reason | Comments | + + + | CPAP Follow Up | | + + + Encounter Details +--------+---------+ + + + | Date | Type | Department | Care Team | Description | +--------+---------+ + + + | 01/06/ | Office | [facility] | Aung Jimenez PA | NEHEMIAH on CPAP (Primary | | 2018 | Visit | SLEEP DISORDER [address] | [address] | Dx) | | | | [address] | [place] | | | | | [place] [address] | [id number] | | | | | [phone] | | | +--------+---------+ + + + Social History + +-------+ [...] + + + | Blood Pressure | 130/80 | 01/06/2018 2:16 PM | | | | | PDT | | + + + + + | Pulse | 60 | 01/06/2018 2:16 PM | | | | | PDT | | + + + + + | Temperature | - | - | | + + + + + | Respiratory Rate | 16 | 01/06/2018 2:16 PM | | | | | PDT | | + + + + + | Oxygen Saturation | 98% | 01/06/2018 2:16 PM | | | | | PDT | | + + + + + | Inhaled Oxygen | - | - | | | Concentration | | | | + + + + + | Weight | 72.4 kg (159 lb 9.8 | 01/06/2018 2:16 PM | | | | oz) | PDT | | + + + + + | Height | - | - | | + + + + + | Body Mass Index | 27.4 | 10/08/2017 10:51 AM | | | | | PDT [...] documented as of this encounter Progress Notes Aung Jimenez PA - 01/06/2018 2:00 PM PDT Subjective: Patient ID: Le Rollins is a 72 y.o. female. HPI last office visit: 07/20/2017 date of polysomnography: 09/29/2016 AHI: 20 (98.7 in supine) RDI: 21.7 O2%: 84% with 2.3 minutes below 88% Machine type: [employer] AirSense 10 Mask type: nasal mask DME: [facility] in [place] pressure: 5-20 cm Median: 7.3 cm 95%: 9.4 cm maximum: 9.8 cm Nights using CPAP: 59/61 169/170 % of nights >4 hours: 81% 74% average usage (all nights): 5:23 5:04 average usage (nights used): 5:34 5:06 AHI: 2.1 Le comes in for CPAP compliance. She continues to do well with her CPAP usage. Her CPAP is a regular part of her sleep routine. She does not have any questions or concerns. I have discussed the download in detail. This shows that her sleep apnea is controlled, wi th an AHI of 2.1. It also shows that her leaks are controlled. She met her insurance CPAP usage standard, but has to meet it again because of her change in insurance. She understands the importance of treating her apnea and is committed to using her CPAP, es pecially since her CVA in 09/2015. She had another stroke in December,. She has not b een cleared to drive and getting transportation has been difficult. She has moved from [place] [facility] [place], [place] to [place]. This is working much better for her. Review of Systems Objective: BP 130/80 | Pulse 60 | Resp 16 | Wt 72.4 kg (159 lb 9.8 oz) | SpO2 98% | BMI 27.40 kg/ m Physical Exam Assessment: Problem #1: OBSTRUCTIVE SLEEP APNEA ([id number]) This is controlled with CPAP. She is doing well with her CPAP usage. Plan: 1. She is to continue with CPAP indefinitely. 2. Touch base with medical supplier twice per year to ensure that all equipment is satisfa ctory. I will follow up again in 1 year, sooner prn. Fifteen minutes were spent [id number], wit h the majority of time spent in counseling. Aung Jimenez PA-C cc: Ole Madden MD documented in this enco unter Plan of Treatment Not on filedocumented as of this encounter Visit Diagnoses + + | Diagnosis | + + | NEHEMIAH on CPAP - Primary Obstructive sleep apnea (adult) (pediatric) | + + documented in this encounter"
--- OUTSIDE RECORDS SUMMARY | ~2020-02-03 | XMS | Encounter Summary ---
Demographics + + + | Address | [address] | | | [place] [address] | + + + | Home Phone | | + + + | Preferred Language | Unknown | + + + | Marital Status | Single | + + + | Voodoo Affiliation | 1013 | + + + | Race | White | + + + | Ethnic Group | Not or | + + + Author + + + | Author | [facility] | | | and [place] | + + + | Organization | [facility] | | | [...] Team Providers + +------+ + | Care Renal Technician Name | Role | Phone | + +------+ + | Ole Madden DO | PCP | | + +------+ + Reason for Referral Evaluate & Treat (Routine) +--------+ + + [...] Medicine | NEHEMIAH | Marck Yo | [place] [address] | | | Required | | (obstructive | [address] | [place] | | | | | sleep | [place] | [place], | | | | | apnea) | [place] | [place] [address] | | | | | Procedures | [facility], [place] | Phone: | | | | | [place] POLYSOM | [id number] | [phone] | | | | | 6/>YRS SLEEP | Phone: | Fax: | | | | | 4/> ADDL | [phone] | [phone] | | | | | AZAM ATTND | Fax: | | | | | | NPSG | [phone] | | +--------+ + + + + + Reason for Visit +---------+ + | Reason | Comments | +---------+ + | Consult | | +---------+ + | Apnea | | +---------+ + Evaluate & Treat (Routine) +--------+--------+ + + + + | Status | Reason | Specialty | Diagnoses / | Referred By | Referred To | | | | | Procedures | Contact | Contact | +--------+--------+ + + + + | Closed | | Internal | Diagnoses | [place], | [place], | | | | Medicine - | Obstructive | Ole Yo, | Marck Yo | | | | Sleep | sleep apnea | DO [address] | [address] | | | | Medicine / | (adult) | [address] | [facility] | | | | Sleep | (pediatric) | TADEO PIEDRA, | [facility] | | | | Medicine | CONSULT [address] | [place] | TADEO MD | | | | | [address] | [address] | [phone] Phone: | | | | | Procedures | Phone: | [phone] | | | | | NEW PATIENT | [phone] | Fax: | | | | | | Fax: | [phone] | | | | | | [phone] | | +--------+--------+ + + + + Encounter Details +--------+---------+ + + + | Date | Type | Department | Care Team | Description | +--------+---------+ + + + | 01/17/ | Office | [facility] | Marck Brar | NEHEMIAH (obstructive | | 2014 | Visit | SLEEP DISORDER [address] | [address] | sleep apnea) | | | | [address] [place] | [address] [place] | (Primary Dx); | | | | [place] [address] | [place] [address] | Essential | | | | [phone] | [phone] | hypertension; | | | | | | Adjustment disorder | | | | | | with mixed anxiety | | | | | | and depressed mood; | | | | | | Obesity; Diabetes | | | | | | type 2, controlled | | | | | | ([facility]); Asthma, | | | | | | unspecified asthma | | | | | | severity, | | | | | | uncomplicated; | | | | | | Murmur, cardiac | +--------+---------+ + + + Social History [...] + + + | Blood Pressure | 122/62 | 01/17/2015 10:56 AM | | | | | PDT | | + + + + + | Pulse | 65 | 01/17/2015 10:56 AM | | | | | PDT | | + + + + + | Temperature | - | - | | + + + + + | Respiratory Rate | 14 | 01/17/2015 10:56 AM | | | | | PDT | | + + + + + | Oxygen Saturation | 98% | 01/17/2015 10:56 AM | | | | | PDT | | + + + + + | Inhaled Oxygen | - | - | | | Concentration | | | | + + + + + | Weight | 74.3 kg (163 lb 12.8 | 01/17/2015 10:56 AM | | | | oz) | PDT | | + + + + + | Height | 165.1 cm (5' 5") | 01/17/2015 10:56 AM | | | | | PDT | | + + + + + | Body Mass Index | 27.26 | 01/17/2015 10:56 AM | | | | | PDT | | + + + + + documented in this encounter Patient Instructions Patient Instructions Marck Brar Jr., MD - 01/17/2015 11:59 AM PDT What Are Snoring and Sleep Apnea? If you ve ever had a stuffed-up nose, you know the feeling of trying to breathe through a very narrow passageway. This is what happens in your throat when you snore. While you sleep , structures in your throat partially block your air passage, making the passage narrow and hard to breathe through. If the entire passage becomes blocked and you can t breathe at al l, you have sleep apnea. Snoring If your throat structures are too large or the muscles relax too much during sleep, the air passage may be partially blocked. As air from the nose or mouth passes around this blockage , the throat structures vibrate, causing the familiar sound of snoring. At times, this sound can be so loud that snorers wake up others, or even themselves, during the night. Snoring g ets worse as more and more of the air passage is blocked. Sleep apnea If the structures completely block the throat, air can t flow to the lungs at all. This i s called apnea (meaning no breathing ). Since the lungs aren t getting fresh air, the brain tells the body to wake up just enough to tighten the muscles and unblock the air pass age. With a loud gasp, breathing begins again. This process may be repeated over and over ag ain throughout the night, making your sleep fragmentedwith a loading machine operator helper stage of sleep. Even though you do not remember waking up many times during the night to a loading machine operator helper sleep, you fee l tired the next day. The lack of sleep and fresh air can also strain your lungs, heart, and other organs, leading to problems such as high blood pressure, heart attack, or stroke. Problems in the nose and jaw Problems in the structure of the nose may obstruct breathing. A crooked (deviated) septum o r swollen turbinates can make snoring worse or lead to apnea. Also, a receding jaw may make the tongue sit too far back, so it s more likely to block the airway when you re asleep. [id number] [employer]. [address] [place] [address], [place] [address]. All righ ts reserved. This information is not intended as a substitute for professional medical care. Always follow your healthcare professional's instructions. What Is a Sleep Study? Do you often have problems sleeping? Do you feel tired most days of the week? Talk to your health care provider or a sleep specialist. He or she may suggest that you have a sleep stud y. It can help diagnose a sleep disorder such as sleep apnea or narcolepsy. During the study , a special machine is used to monitor your sleep. Who Needs a Sleep Study? If you have sleep problems that last longer than a few weeks, you may need a sleep study. T alk to your health care provider. Be prepared to answer questions about your health history. Try to keep a daily sleep diary for a week or 2. Write down the time you go to bed, the e you wake up, and anything that seems to affect your sleep. Then your health care provider can refer you to a sleep specialist and recommend a sleep study. Monitoring Your Sleep Your sleep can be monitored at a sleep clinic or at your home. In either case, your health care provider will discuss the results with you at a future visit: At a sleep clinic. Most sleep studies are done at a sleep clinic or a sleep lab. In many cases, you will need to stay overnight. You will sleep in a private room, much like a hotel or hospital room. A family member or a friend can come along, but cannot stay overnight. Mo st people don t have trouble sleeping during the study. In the morning you can go home. So metimes you may be asked to come back for a daytime nap study. At home. At times, a sleep study can be done at home. A home sleep study provides most o f the same information as a study done at a clinic. A special computer is loaned to you by a sleep clinic or a medical supplier. You will be given instructions on how to use it. Or, so meone may come to your home to help. Before bedtime, the computer is turned on to monitor yo ur sleep all night. In the morning, you return the computer. [employer]. [address] [place] [address]. All righ ts reserved. This information is not intended as a substitute for professional medical care. Always follow your healthcare professional's instructions. Monitoring Your Sleep: Sleep Lab Testing Checking your sleep during a nighttime sleep study is often the only way to find out if you have conditions such as sleep apnea or other sleep problems. A sleep study records how your lungs, heart, brain, and other parts of your body function while you re asleep. It s pa inless, risk-free, and in most cases takes 1 full night. Testing in a Sleep Clinic If you spend the night in a sleep clinic, you will have a private bedroom. A metal technician frieda l attach many sensors to your body, then go into another room. As you sleep, your heart rate , breathing, oxygen level, brain activity, and other functions will be tracked. A microphone and video camera will record your breathing sounds and body movements. The metal technician will keep watch nearby. If you need an air pressure device to help you breathe, one will be avail able. Tips for Testing in a Sleep Lab Before your sleep study, bathe and wash your hair. Don t use conditioners, oils, or ma keup. Stick to your normal routine. If you usually drink alcohol, exercise, or take medication before bed, ask your health care provider whether you should do so the night of your study. Most patients undergoing a sleep study should take all of their medications as they typical ly would at home. Bring your toothbrush, sleepwear, pillow, something to read, and anything else that will help you sleep well. Getting the Results The results of your sleep study need to be scored and interpreted. Once this is done, your health care providerwill discuss the findings with you. The sleep study results will show whether you have sleep apnea. It can also tell how severe the apnea is. The findings help yo ur health care providerknow which treatment or treatments may be the right ones for you. [employer]. [address] [place], [place] [id number]. All righ ts reserved. This information is not intended as a substitute for professional medical care. Always follow your healthcare professional's instructions. Monitoring Your Sleep: Sleep Lab Testing Checking your sleep during a nighttime sleep study is often the only way to find out if you have conditions such as sleep apnea or other sleep problems. A sleep study records how your lungs, heart, brain, and other parts of your body function while you re asleep. It s pa inless, risk-free, and in most cases takes 1 full night. Testing in a Sleep Clinic If you spend the night in a sleep clinic, you will have a private bedroom. A metal technician frieda l attach many sensors to your body, then go into another room. As you sleep, your heart rate , breathing, oxygen level, brain activity, and other functions will be tracked. A microphone and video camera will record your breathing sounds and body movements. The metal technician will keep watch nearby. If you need an air pressure device to help you breathe, one will be avail able. Tips for Testing in a Sleep Lab Before your sleep study, bathe and wash your hair. Don t use conditioners, oils, or ma keup. Stick to your normal routine. If you usually drink alcohol, exercise, or take medication before bed, ask your health care provider whether you should do so the night of your study. Most patients undergoing a sleep study should take all of their medications as they typical ly would at home. Bring your toothbrush, sleepwear, pillow, something to read, and anything else that will help you sleep well. Getting the Results The results of your sleep study need to be scored and interpreted. Once this is done, your health care providerwill discuss the findings with you. The sleep study results will show whether you have sleep apnea. It can also tell how severe the apnea is. The findings help yo ur health care providerknow which treatment or treatments may be the right ones for you. [id number] [employer]. [address] [place] [address], [place] [address]. All righ ts reserved. This information is not intended as a substitute for professional medical care. Always follow your healthcare professional's instructions. documented in this encounter Progress Notes Marck Brar Jr., MD - 01/17/2015 11:22 AM PDTFormatting of this note might be differen t from the original. Debbie Zaidi [facility] [place] [address] Ref: Ole Madden, DO CC: Chief Complaint Patient presents with Consult Apnea History of the Present Illness:This is a 69 year old female who is referred for sleep medic ine consultation by Dr. Nolvia Madden because of NEHEMIAH. Other significant medical issues include D TAMIA, history of bariatric surgery for morbid obesity, NEHEMIAH. The patient's records (Dr. Madden' s notes and Sleep study from [facility]) are reviewed. The patient is interviewe d and examined. PSG utilizing a split-night technique was [facility] at [facility] in [facility] on 11/17/2011 which demonstrated a pretreatment AHI of 93.5 with oxygen desaturation t o 82% and she was titrated to CPAP of 13cm. Her weight was 242. Since then she has undergone gastric bypass surgery in [place] and her current weight is 163.8. She currently has a Remsta r Pro CPAP set 8cm. She has worn this for 53 out of the last 180 days. She averages 4 hours 57 minutes of use. The average AHI is 12.7. She has had trouble wearing her CPAP recently be cause of claustrophobia and nasal pain. Bedtime is usually about 10:30-11pm and rise time is about 7am. She estimates a latency to sleep onset is long unless she wears the CPAP (her son and her father last year). She has nocturia once a night and most nights she gets back to sleep easily. She denies nigh t sweats and she denies nocturnal heartburn. She awakens every morning with a dry mouth and nasal/sinus congestion - this is worsened actually when she wears her current CPAP. She does awaken with morning headaches. She dreams in her sleep and she talks in her sleep. She can have panic attacks out of sleep too. She also has nightmares frequently (often of being choked). She doesn't walk in her sl eep. She can talk but she doesn't think that she has dream enactment during sleep. She denie s sleep paralysis. She denies hypnagogic hallucinations. She gets restlessness in her legs at night and her legs cramp a frequently at night. And sh e once woke from sleep with diffuse muscle spasms for which she had to call the paramedics. She thinks that she snores but she isn't sure. Her grandkids have told her that she can sno re and awaken gasping for air. In the daytime she feels fatigued and tired frequently. She does often inadvertently fall a sleep in her chair if she isn't interested in what she is doing. She doesn't fall asleep elvin bonicatherine (she did prior to the gastric bypass grafting). She denies cataplexy. She doesn't consu me caffeine on a regular basis. Past Medical History: has a past medical history of Numbness and tingling in right hand (1 ); DDD (degenerative disc disease), cervical (02/08/2012); NEHEMIAH (obstructive sleep a pnea); Obesity; Hypertension; Diabetes type 2, controlled ([facility]); Asthma; Stroke ([facility]); and M urmur, cardiac. has past surgical history that includes Tonsillectomy and adenoidectomy (1950); Appendecto my (1958); Hysterectomy, total abdominal (1972); Cholecystectomy (1988); right knee arthrosc opy (1989); Uvulopalatopharygoplasty (1987); Thyroidectomy, partial (1984); Thyroidectomy (); and Gastric bypass surgery (2011). Allergies Allergen Reactions Aripiprazole Bee Venom Clonidine Derivatives Insulin Glargine Insulin Lispro (Human) Pioglitazone Hydrochloride Shellfish-Derived Products Statins Current Outpatient Prescriptions Medication Sig Dispense Refill calcium citrate-vitamin D (CALCIUM + D) 315 mg-200 units per tablet Take 1 tablet by tx ut 2 times daily. cyanocobalamin (VITAMIN B-12) 1000 MCG tablet Take 1,000 mcg by mouth Daily. diphenhydrAMINE (BENADRYL) 25 mg tablet Take 25 mg by mouth every 6 hours as needed for Itching. DULoxetine (CYMBALTA) [address] capsule Take 30 mg by mouth Daily. EPINEPHrine (EPIPEN) 0.3 mg/0.3 mL injection Inject 0.3 mg into the muscle as needed fo r Anaphylaxis. levothyroxine (SYNTHROID, LEVOTHROID) 150 mcg tablet Take 150 mcg by mouth every mornin g (before breakfast). lisinopril-hydrochlorothiazide (PRINZIDE,ZESTORETIC) 20-25 MG per tablet Take 1 tablet by mouth Daily. Magnesium 200 MG TABS Take by mouth. Multiple Vitamins-Minerals (MULTIVITAMIN PO) Take by mouth. No current facility-administered medications for this visit. Family Medical History: family history includes Heart disease in her father; Other (See Com ment) in her son. indicated that her mother is . She indicated that her father is . She indic ated that her brother is alive. She indicated that only one of her two sons is alive. 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 Review of Systems: Constitutional: Denies unexplained fevers, chills, sweats, significant recent weight higgins ge. Eyes:Denies sudden loss of vision, diplopia, blurred vision. ENT: Denies vertigo, nasal or sinus congestion, bleeding gums or poor dental repair. 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 Card:Denies exertional substernal chest heaviness, leg pain. Denies palpitations, orthopn ea, ankle edema, presyncope. Resp: Has cough and shortness of breath attributed to environmental allergies. GI: Denies nausea, vomiting, abdominal pain, diarrhea, constipation, hematochezia. : Denies dysuria, pyuria, hematuria, frequency, incontinence MS: Diffuse myalgias and arthralgias. Neuro: Multiple strokes on CT scan of brain (she thinks). Psych: Has depression and anxiety - situational. Endocrine: Denies heat or cold intolerance Heme: Denies easy bruising or prolonged bleeding. Allergic/Immunologic: Has seasonal allergies PE: BP 122/62 mmHg | Pulse 65 | Resp 14 | Ht 1.651 m (5' 5") | Wt 74.299 kg (163 lb 12.8 oz ) | BMI 27.26 kg/m2 | SpO2 98% Gen: alert and not in acute distress HEENT:Head: Normocephalic, no lesions, without obvious abnormality. Eye: Normal external eye, conjunctiva, lids cornea, ATA. Nose: Normal external nose, mucus membranes and septum. Pharynx: Dental Hygiene adequate. Normal buccal mucosa. Surgically absent uvula. Mallampati 2. Neck / Thyroid: Supple, no masses, nodes, nodules or enlargement. Pulm: lungs clear to auscultation Card: S1, S2 wnl. 3/6 YUSRA best heard over pulmonic area. GI: soft and normal bowel sounds : Not examined Rectal: Not Examined Ext: peripheral pulses normal, no pedal edema, no clubbing or cyanosis Skin:no rashes Neuro:Grossly normal Psych:age appropriate and casually dressedoriented to time, place and person, mood and aff ect are within normal limits, pt is a good historian. Heme: No cervical LN Questionnaires Review: The score of 12 on the [place] Sleepiness scale suggests significant excessive daytime sleepiness. The score of 15 on the Insomnia Severity Scale suggests that the patient has significant dissatisfaction with the quality of sleep. The score of 10 on th e Ponce Depression Inventory is consistent with minimal depression. The score of 24 on the Be ck Anxiety Inventory suggests mild-moderate recognized anxiety. The SF36v2 suggests mild disha f-assessed impairment in subscales Physical Function, Role Physical, Body Pain. She scores a bout 0.5 standard deviations below the mean on the Physical Component Scale and just above t he mean on the Mental Component Scale. Assessment: NEHEMIAH: The patient is having a horrible time with CPAP therapy because of mask is sues, nasal/sinus drying, and claustrophobia. I have discussed in detail the pathophysiology of Obstructive Sleep Apnea with the patient. I've discussed that during NREM sleep the skel etal muscles relax and in REM sleep the skeletal muscles are paralyzed. The muscles that sup port the back of the throat (the tongue in particular) also relax during NREM sleep and are paralyzed in REM sleep and when this occurs, the back of the throat collapses some. In some patients with a smaller back of the throat, this can result in obstruction to the flow of ai r. This is fundamentally what occurs in NEHEMIAH. This can cause repetitive obstruction to the fl ow of air all night long cause a person with NEHEMIAH to awaken repeatedly at night to "open" the back of the throat. If airflow is significantly restricted, blood oxygen levels can fall. T he combination of the repetitive awakenings at night and low oxygen levels lead to numerous other physiologic abnormalities which can result in nocturia, nocturnal heartburn, night swe ats, morning dry mouth, morning headache, and daytime fatigue/sleepiness. Additionally, NEHEMIAH can cause hypertension and it dramatically increases the risk of heart disease, heart attack , and stroke. It may play a causative role in obesity and AODM. Untreated NEHEMIAH also dramatica lly increases the risk of fall asleep car accidents. Treatment can help with all of these is sues. I've discussed the newer CPAP units which I think are more comfortable. I would like t o obtain PSG to re-evaluate the current severity of NEHEMIAH. If she still has NEHEMIAH (which I suspe ct she has) and is intolerant of the new CPAP units, a dental appliance might be helpful. Adjustment Disorder: Within the last year she has had numerous psychosocial stressors. At some point, professional counseling might be of help but I will leave this to Dr. Madden. Cardiac Murmur: I suspect aortic sclerosis. Dr. Madden has ordered an echocardiogram acco rding to his note of 07/20/2014 but I do not have the results. HBP: Stable and doing well. Plan: PSG in the near future with f/u thereafter. Patient Active Problem List Diagnosis Numbness and tingling in right hand DDD (degenerative disc disease), cervical Rotator cuff tear, right NEHEMIAH (obstructive sleep apnea) Obesity Hypertension Diabetes type 2, controlled Asthma Murmur, cardiac imon, Marck Yo Jr., MD - 01/17/2015 11:03 AM PDTFormatting of this note might be different from the origin al. 01/17/15 1100 Ponce Depression Inventory-II Depression Score 24 - Moderate depression Insomnia Severity Index Insomnia Severity Index 15 [place] Sleepiness Scale Sitting and reading 2 Watching TV 2 Sitting, inactive in a public place (e.g. a theatre or a meeting) 1 As a passenger in a car for an hour without a break 3 Lying down to rest in the afternoon when circumstances permit 1 Sitting and talking to someone 1 Sitting quietly after a lunch without alcohol 1 In a car, while stopped for a few minutes in traffic 1 Total score 12 SF-36v2 Score PF 40.32 RP 45.93 BP 42.64 GH 57.94 VT 55.57 SF 47.31 RE 45.72 MH 50.87 PCS 44.92 MCS 52.47 documented in th is encounter Plan of Treatment + + +--------+ + + | Name | Type | Priori | Associated Diagnoses | Order Schedule | | | | ty | | | + + +--------+ + + | Ambulatory Referral | Outpatient | Routin | NEHEMIAH (obstructive | Ordered: 01/17/2015 | | to Sleep Studies | Referral | e | sleep apnea) | | + + +--------+ + + documented as of this encounter Visit Diagnoses + + | Diagnosis | + + | NEHEMIAH (obstructive sleep apnea) - Primary Obstructive sleep apnea (adult) (pediatric) | + + | Essential hypertension Unspecified essential hypertension | + + | Adjustment disorder with mixed anxiety and depressed mood | + + | Obesity Obesity, unspecified | + + | Diabetes type 2, controlled (HCC) Type II or unspecified type diabetes mellitus | | without mention of complication, not stated as uncontrolled | + + | Asthma, unspecified asthma severity, uncomplicated | + + | Murmur, cardiac Undiagnosed cardiac murmurs | + + documented in this encounter
--- OUTSIDE RECORDS SUMMARY | ~2020-02-03 | XMS | Encounter Summary ---
Demographics + + + | Address | [address] | | | [place] [address] | + + + | Home Phone | | + + + | Preferred Language | Unknown | + + + | Marital Status | Single | + + + | Samaritan Affiliation | 1013 | + + + | Race | White | + + + | Ethnic Group | Not or | + + + Author + + + | Author | [facility] | | | and [place] | + + + | Organization | [facility] | | | and [...] Team Providers + +------+ + | Care Shaper Set Up Operator Name | Role | Phone | + +------+ + | Warren Harrington | PCP | | + +------+ + Reason for Visit + +--------+ + | Reason | Onset | Comments | | | Date | | + +--------+ + | Appointment Question | 01/21/ | | | | 2019 | | + +--------+ + Encounter Details +--------+ + + + + | Date | Type | Department | Care Team | Description | +--------+ + + + + | 01/21/ | Telephone | [facility] | Jose D Trujillo, | Appointment Question | | 2019 | | GASTROENTEROLOGY | BUSINESS INVESTOR [address] | | | | | [address] | [address] [facility] | | | | | [address] [place], [place] | [place] [address] | | | | | [address] | [phone] | | | | | [phone] | | | +--------+ + + + [...] this encounter Miscellaneous Notes Telephone Encounter - Tanya Guerrero [employer] Assembler - 01/22/2020 2:51 PM PDTFaxed stool studies to [facility]. Patient notified and will follow up with GI at [facility]. eleph one Encounter - Celestine Jeffery - 01/22/2020 2:19 PM PDTName of Caller: Le Rollins Name of Patient: Le Rollins Reason for call: Patient called and stated that she is trying to get set up with a surgeon in [place], [place] to do her EGD and colon and in order to have her procedure complete they wi ll need a stool studies to be order. Patient [facility] Jose [facility] [place] [facility] to clinical staff to advise. Provider/Nurse: Jose D Call back number: [phone] documented in this encou nter Plan of Treatment Not on filedocumented as of this encounter Visit Diagnoses Not on filedocumented in this encounter"
--- OUTSIDE RECORDS SUMMARY | ~2020-02-03 | XMS | Encounter Summary ---
Demographics + + + | Address | [address] | | | [place] [address] | + + + | Home Phone | | + + + | Preferred Language | Unknown | + + + | Marital Status | Single | + + + | Faith Affiliation | 1013 | + + + | Race | White | + + + | Ethnic Group | Not or | + + + Author + + + | Author | [facility] | | | and [place] | + + + | Organization | [facility] | | | [...] Team Providers + +------+ + | Care T Rail Turner Name | Role | Phone | + [...] Closed | | Radiology | Diagnoses | Chano, | | | | | | Murmur | Ole Yo, | | | | | | Procedures | DO [address] | | | | | | ECHO | [address] | | | | | | Complete | [place], | | | | | | | [place] | | | | | | | [address] | | | | | | | Phone: | | | | | | | [phone] | | | | | | | Fax: | | | | | | | [phone] | | +--------+--------+ + + + + Reason for Visit Diagnostic/Screening (Routine) +--------+--------+ + + + + | Status | Reason | Specialty | Diagnoses / | Referred By | Referred To | | | | | Procedures | Contact | Contact | +--------+--------+ + + + + | Closed | | Radiology | Diagnoses | Chano, | | | | | | Murmur | Ole Yo, | | | | | | Procedures | DO [address] | | | | | | ECHO | [address] | | | | | | Complete | [place], | | | | | | | [place] | | | | | | | [address] | | | | | | | Phone: | | | | | | | [phone] | | | | | | | Fax: | | | | | | | [phone] | | +--------+--------+ + + + + Encounter Details +--------+ + + + + | Date | Type | Department | Care Team | Description | +--------+ + + + + | 07/26/ | Hospital | [facility] | Ole Madden, | Eunice | | 2015 | Encounter | [facility] [address] | DO [address] | | | | | [place] | [place] | | | | | [place] [address] | [address] | | | | | [phone] | [phone] | | | | | | | | | | | | Rajat Leon, | | | | | | Technologist | | +--------+ + + + + Social History + +-------+ +--------+------+ | Tobacco Use | Types | Packs/Day | Years | Date | | | | | Used | | + +-------+ +--------+------+ | Never Assessed | | | | | + +-------+ +--------+------+ + + + | Sex Assigned at [...] + | ECHO COMPLETE | Routin | 07/26/2014 | Murmur | Results for this | | | e | 8:51 AM | | procedure are in the | | | | PDT | | results section. | + +--------+ + + + | LVEF VALUE | Routin | 07/26/2014 | | Results for this | | | e | | | procedure are in the | | | | | | results section. | + +--------+ + + + documented in this encounter Results ECHO Complete (07/26/2014 8:51 AM PDT) + + | Specimen | + + | | + + + + + | Narrative | Performed At | + + + | [facility] ECHOCARDIOGRAM REPORT | [facility] | | STUDY DATE: 07/26/2014 PATIENT NAME: Le Rollins : | | | 1945 PCP: Ole Madden DO | | | CLINICAL HISTORY/DIAGNOSIS: murmur A transthoracic | | | echocardiogram with M-mode, pulsed-wave and color Doppler was | | | performed with standard views obtained. The technical quality of | | | this examination is good. The heart rhythm during the echo is | | | sinus bradycardia. The M-mode, two-dimensional, color flow and | | | spectral Doppler data were reviewed and support the following | | | interpretation: Interpretation: Left Atrium: Left atrial size is | | | normal. Left ventricle: Left ventricular size is normal with normal | | | wall thickness and motion, and normal left ventricular systolic | | | function. The estimated ejection fraction is 70-75 %. Evidence | | | of a sigmoid septum. Left ventricular diastolic function is | | | normal. Aortic root: Aortic root is normal. Right Atrium: Right | | | atrial sizes normal. Right ventricle: Right ventricular size is | | | normal with normal wall thickness and normal right ventricular | | | systolic function. Pericardium: Pericardium is normal. Pulmonary | | | artery: Pulmonary artery is normal. normal right-sided pressure. | | | Aortic valve: Aortic valve is trileaflet with mild thickening and | | | calcification. There is some mild calcific aortic valve stenosis | | | with a peak velocity across aortic valve of 2.8 m/s, peak gradient | | | of 30 mmHg, mean gradient of 15 mmHg. This a trace aortic valve | | | insufficiency. Mitral valve: Mitral valve is normal. mild mitral | | | valve regurgitation. Pulmonic valve: Pulmonic valve is normal. | | | Tricuspid valve: Tricuspid valve is normal. mild tricuspid valve | | | regurgitation. Vena cava: The inferior vena cava is normal. | | | There is greater than 50% inspiratory collapse of the IVC. | | | IMPRESSIONS: 1. Normal left ventricular size, wall thickness and | | | motion. Preserved left ventricular systolic function. LVEF is | | | 70-75%. There is evidence of a sigmoid septum. 2. Mildly | | | thickened and calcified trileaflet aortic valve with mild calcific | | | aortic valve stenosis. There is mild aortic valve insufficiency. 3. | | | Mild mitral valve regurgitation. 4. Mild tricuspid valve | | | regurgitation. 5. Normal right-sided pressure. 6. Normal IVC | | | with normal respiratory collapse. Measurements: Height: | | | 65 Weight: 146 Aortic root: 30 mm Aortic cusp sep: 8 mm LA: | | | 28 mm IVS-diastole: 12 mm IVS-systole: mm LVPW diastole: | | | 12 mm LVPW systole: mm LV diameter-diastole: 35 mm LV | | | diameter-systole: mm Fractional shortening: % PFV aortic | | | valve: 2.4 m/s MPG mitral valve: mmHg PFV TR jet: 2.7 m/s | | | RA/RV PP mmHg LA volume: 54 mL LA index: 31 mL/m2 Mitral | | | Inflow DT: 254 ms IVRT: 58 ms Valsalva: PWDTI S wave: 6.9 | | | cm/s PWDTI E wave: 8.1 cm/s PWDTI A wave: 6.2 cm/s E/A Ratio: | | | 1.3 E/E Ratio: 12 Signed by: Alicia Gonzáles MD | | | [facility] 07/26/2014 8:54 Carpenter Inspector: Georges Balderas, | | | RDMS | | + + + + +---------+ + + | Performing | Address | City/State/Zipcode | Phone Number | | Organization | | | | + +---------+ + + | [facility] | | | | + +---------+ + + LVEF VALUE (07/26/2014) + +-------+ + + + | Component | Value | Ref Range | Performed | Pathologist | | | | | At | Signature | + +-------+ + + + | LVEF-TTE | 70 | | | | | TRANSTHORAC | | | | | | IC ECHO | | | | | + +-------+ + + + documented in this encounter Visit Diagnoses + + | Diagnosis | + + | Murmur Undiagnosed cardiac murmurs | + + documented in this encounter"
--- OUTSIDE RECORDS SUMMARY | ~2020-02-03 | XMS | Encounter Summary ---
Demographics + + + | Address | [address] | | | [place] [address] | + + + | Home Phone [...] Team Providers + +------+ + | Care Charrer Name | Role | Phone | + +------+ + PCP | Unavailable | + +------+ + Encounter Details +--------+---------+ + + + | Date | Type | Department | Care Team | Description | +--------+---------+ + + + | 09/26/ | Surgery | [facility] | Alicia Gonzáles, | CV [facility] | | 2019 | | MED CTR CV INTRA OP | MD [address] | | | | | [address] | [place], | | | | | [place], [place] | [place] [address] | | | | | [id number] | [phone] | | | | | [phone] | | | +--------+---------+ + + + [...] + + + | Blood Pressure | 145/54 | 09/26/2018 11:15 AM | | | | | PDT | | + + + + + | Pulse | 55 | 09/26/2018 11:30 AM | | | | | PDT | | + + + + + | Temperature | 36.9 C (98.4 F) | 09/26/2018 9:18 AM | | | | | PDT | | + + + + + | Respiratory Rate | 15 | 09/26/2018 11:15 AM | | | | | PDT | | + + + + + | Oxygen Saturation | 95% | 09/26/2018 11:30 AM | | | | | PDT | | + + + + + | Inhaled Oxygen | - | - | | | Concentration | | | | + + + + + | Weight | 74.3 kg (163 lb 12.8 | 09/26/2018 8:06 AM | | | | oz) | PDT | | + + + + + | Height | 162.6 cm (5' 4") | 09/26/2018 8:06 AM | | | | | PDT | | + + + + + | Body Mass Index | 28.12 | 09/26/2018 8:06 AM | | | | | PDT [...] + documented as of this encounter Discharge Instructions Instructions Jes Hsu RN - 09/26/2018Dr. Liz is making a referral to Dr. Guadalupe within the week. A prescription for Plavix 75 mg daily is being sent to [facility] pharmacy Restart Eliquis today. Stop Eliquis 2 days before your procedure with Dr. Guadalupe. Do not take Aspirin while you are taking Plavix. Bleeding or Hematoma After Cardiac Catheterization You recently had cardiac catheterization. A catheter was put into your body through a punct ure of an artery in your groin or arm. You now have bleeding from this site. When bleeding o ccurs, it may drip or spurt from the site. Or it may collect in a lump (hematoma) under the skin. This often requires urgent evaluation in an emergency room. First put direct pressure on the site and call 911 or have someone take you to the emergency room. In the emergency ro om, additional pressure will be put on the site to stop bleeding. You will be sent home when the bleeding stops. To prevent repeat bleeding, take some precautions at home. If the bleed ing starts again, follow the advice below. Home care For the next 48 hours: Don't do any strenuous activity. Avoid stair is possible Don't lift anything greater than 10 pounds. If the puncture site is in your arm or wrist, don't lie on that arm. If your puncture site is in the groin, don'tstrain at bowel movements. Don't scrub the site when bathing. It is fine to get it wet after your healthcare provid er says it is OK, but don't scrub it or massage it. If bleeding happens again, call 911. Take the following steps to stop the bleeding until he lp arrives: Lie on your back. Place a clean cloth or gauze pad over the puncture site. Then hold firm pressure right o n the site. Or have someone else apply firm pressure using thegauze pad orwashcloth. Keep your arm straight and raised above the level of your heart if the site is in your a rm or wrist. If the site is in your groin, have someone else hold pressure on the site. Don't press too hard! If you press too hard, your leg and foot (or arm and hand) will no t get blood flow andthe skin under your toenails or fingernails may turn white. The skin s hould look pink, like the toenails on your other foot. When you (or someone) presses on the toenail it will turn white, but when you stop pressing on the nail it will turn pink again. This is called "capillary refill." If there is someone with you, he or she can check it. If your toes, foot, or leg start feeling numb, tingly, or cold, ease up on the pressure, you are probably pressing too hard. As soon as emergency care arrives, they will take over your care. Follow-up care Follow up with your healthcare provider, or as advised. Ask your healthcare provider for a contact number to call. Call 911 Call 911 if any of these occur: Chest pain or pressure Any bleeding from the site Feeling weak or faint Trouble breathing Lump (hematoma) isquickly getting larger Coolness, numbness, tingling, or skin color changes in the leg or arm with the puncture site When to seek medical advice Call your healthcare provider right awayif any of these occur: Increased pain, redness, swelling, or drainage from the puncture site Nausea or vomiting Date Last Reviewed: 09/24/201719990258-1549 [employer]. [address] [place] [address], [place] [address]. All righ ts reserved. This information is not intended as a substitute for professional medical care. Always follow your healthcare professional's instructions. Clopidogrel tablets Brand Name: Plavix What is this medicine? CLOPIDOGREL (kloh PID oh grel) helps to prevent blood clots. This medicine is used to preve nt heart attack, stroke, or other vascular events in people who are at high risk. How should I use this medicine? Take this medicine by mouth with a glass of water. Follow the directions on the prescriptio n label. You may take this medicine with or without food. If it upsets your stomach, take it with food. Take your medicine at regular intervals. Do not take it more often than directed . Do not stop taking except on your doctor's advice. A special MedGuide will be given to you by the pharmacist with each prescription and refill . Be sure to read this information carefully each time. Talk to your cellar hand regarding the use of this medicine in children. Special care may be needed. What side effects may I notice from receiving this medicine? Side effects that you should report to your doctor or health manager intensive care as soon as p ossible: allergic reactions like skin rash, itching or hives, swelling of the face, lips, or tong ue signs and symptoms of bleeding such as bloody or black, tarry stools; red or dark-brown urine; spitting up blood or brown material that looks like coffee grounds; red spots on the skin; unusual bruising or bleeding from the eye, gums, or nose signs and symptoms of a blood clot such as breathing problems; changes in vision; chest pain; severe, sudden headache; pain, swelling, warmth in the leg; trouble speaking; sudden n umbness or weakness of the face, arm or leg Side effects that usually do not require medical attention (report to your doctor or health manager intensive care if they continue or are bothersome): constipation diarrhea headache upset stomach What may interact with this medicine? Do not take this medicine with the following medications: dasabuvir; ombitasvir; paritaprevir; ritonavir defibrotide This medicine may also interact with the following medications: antiviral medicines for HIV or AIDS aspirin certain medicines for depression like citalopram, fluoxetine, fluvoxamine certain medicines for fungal infections like ketoconazole, fluconazole, voriconazole certain medicines for seizures like felbamate, oxcarbazepine, phenytoin certain medicines for stomach problems like cimetidine, omeprazole, esomeprazole certain medicines that treat or prevent blood clots like warfarin, enoxaparin, daltepari n, apixaban, dabigatran, rivaroxaban, ticlopidine chloramphenicol cilostazol fluvastatin isoniazid modafinil nicardipine NSAIDS, medicines for pain and inflammation, like ibuprofen or naproxen quinine repaglinide tamoxifen tolbutamide topiramate torsemide What if I miss a dose? If you miss a dose, take it as soon as you can. If it is almost time for your next dose, ta ke only that dose. Do not take double or extra doses. Where should I keep my medicine? Keep out of the reach of children. Store at room temperature of 59 to 86 degrees F (15 to 30 degrees C). Throw away any unused medicine after the expiration date. What should I tell my health care provider before I take this medicine? They need to know if you have any of the following conditions: bleeding disorders bleeding in the brain having surgery history of stomach bleeding an unusual or allergic reaction to clopidogrel, other medicines, foods, dyes, or preserv atives or trying to get breast-feeding What should I watch for while using this medicine? Visit your doctor or health manager intensive care for regular check ups. Do not stop taking you r medicine unless your doctor tells you to. Notify your doctor or health manager intensive care and seek emergency treatment if you develop breathing problems; changes in vision; chest pain; severe, sudden headache; pain, swelling, warmth in the leg; trouble speaking; sudden numbness or weakness of the face, arm or leg. Th paul can be signs that your condition has gotten worse. If you are going to have surgery or dental work, tell your doctor or health care profession al that you are taking this medicine. Certain genetic factors may reduce the effect of this medicine. Your doctor may use genetic tests to determine treatment. NOTE:This sheet is a summary. It may not cover all possible information. If you have questi ons about this medicine, talk to your doctor, pharmacist, or health care provider. Copyright 2019 Elsevier Recovery After Procedural Sedation (Adult) You have been given medicine by vein to make you sleep during your procedure. This may have included both a pain medicine and sleeping medicine. Most of the effects have worn off. But you may still have some drowsiness for the next 6 to 8 hours. Home care Follow these guidelines when you get home: For the next 8 hours, you should be watched by a responsible adult. This person should m shannon sure your condition is not getting worse. Don't drink any alcoholfor the next [address]. [address], operate dangerous machinery,make important business or personal decisions , or sign legal documentsduring the next 24 hours. Note: Your healthcare provider may tell you not to take any medicine by mouth for pain or s leep in the next 4 hours. These medicines may react with the medicines you were given in the hospital. This could cause a much stronger response than usual. Follow-up care Follow up with your healthcare provider if you are not alert and back to your usual level o f activity within 12 hours. When to seek medical advice Call your healthcare provider right away if any of these occur: Drowsiness gets worse Weakness or dizziness gets worse Repeated vomiting You can't be awakened Date Last Reviewed: 02/11/201619996547-8115 [employer]. [address] [place] [address], [place] [address]. All righ ts reserved. This information is not intended as a substitute for professional medical care. Always follow your healthcare professional's instructions. documented in this encounter Medications at Time [...] + + documented as of this encounter H&P Notes Alicia Gonzáles MD - 09/26/2018 8:28 AM PDTMs. Rollins's chart was reviewed in detail, and no changes have occurred since the recent note. Also, she was examined by me today and there are no changes in the heart and lung exam. Ms. Rollins is still appropriate candidate for bilateral heart catheterization and we will proceed with that today. An explanation of the procedure, including the risks, benifits and alternatives to the procedure were discuss ed with the patient and consent has been obtained. Maral Fermin ARN P - 08/31/2018 9:45 AM PDT PATIENT NAME: Le Rollins : 1945: AGE: 73 y.o. PRIMARY CARE: Ole Madden DO CC: OUTPATIENT FOLLOW UP VISIT Date of Service: 08/31/2018 HISTORY OF PRESENT ILLNESS: Le Rollins is a 73 y.o. female with a history of coronary artery disease, aortic genia nosis, paroxysmal atrial fibrillation, peripheral vascular disease, type II diabetes mellitu s, obstructive sleep apnea, hypertension and hyperlipidemia. She is being seen today for fol low up coronary artery disease. She was last seen 07/01/2018 at which time, an echocardiogram was warranted to assess cardiac structure chest pain and palpitation. She was scheduled for SPECT MPI stress test for chest pain. She was recommended a therapeutic lifestyle change including walking 30 minutes a da y, choosing a healthy choices of diet, including DASH diet, weight reduction and 7 hours of high quality sleep at night. She was recommended flu, pneumonia and shingles vaccine. Floridalma cooney was up to date on vaccines. She will follow-up 4-6 weeks.Since that time, she had the echo cardiogram and SPECT MPI stress test completed. She saw her PCP on 07/12/2018 for a fall. She fall down six stairs at her sons home and she was taken to the ER and was evaluated and no acute fracture. She mention had been hard to he ar out of her right ear. And irrigation of the right ear was successful. And her TSH/T4 was pending at this visit. Today she reports she does check her blood pressure at home. The home BP readings have been in the 120's / 60-70's range. She has had a poor energy level. She tries to stay active. She was walking 2 miles every day, but she is feeling more weak over the past 6 months and i s no longer able to do that. She still tries to uses the [employer] Step machine for 15 or more thaddeus soledad every other day, and has PT to do some core strengthening, but that exertion made her draper ve severe fatigue, weakness, shortness of breath and had lightheadedness with exertion. She enjoys spending time with her grandkids and watching their sports in her spare time. She us ed to enjoy camping but is no longer able to do this due to how poorly she feels. She has had chest discomfort with stress. Sometimes she will feel it with exertion, like aris flaherty she moved from [facility] to [facility] and she overexerted herself. She has had shortness of breath with exertion of doing activities. She uses her walker to walk longer distances, and she "pushes through" and today had shortness of breath walking from the door to the elev ator for her appointment, but kept going. She has lightheadedness with exertion. She has no ticed palpitations that have increased and have associated symptoms of shortness of breath. She has not had leg swelling. She sleeps on 1 pillow at night without any shortness of yelena ath. She sleeps with CPAP machine in place nightly. She sleeps on her side to avoid choking . MEDICAL, SURGICAL, AND PERSONAL HISTORY Past Medical, Surgical, Family, and Social History are reviewed in EPIC. CURRENT PROBLEMS Patient Active Problem List Diagnosis Numbness and tingling in right hand DDD (degenerative disc disease), cervical Rotator cuff tear, right Mixed sleep apnea Obesity Essential hypertension with goal blood pressure less than 140/90 Diabetes mellitus, type 2 Asthma Murmur, cardiac Chest pain Coronary artery calcification seen on CAT scan NSTEMI (non-ST elevated myocardial infarction) Aortic valve stenosis Fibromyalgia Carotid stenosis, right Chronic ischemic heart disease Coronary artery disease involving [place] coronary artery of [place] heart with angina pe ctoris Cerebral infarction Hyperlipidemia Hypothyroidism Infarction of parietal lobe VHD (valvular heart disease) NEHEMIAH (obstructive sleep apnea) UGI bleed Anastomotic ulcer S/P gastric bypass Acute blood loss anemia Anemia Hepatitis Family history of type II diabetes mellitus Osteoarthritis CURRENT MEDICATIONS Current Outpatient Medications Medication Sig Dispense Refill acetaminophen (TYLENOL) 325 mg tablet Take 2 tablets by mouth every 6 hours as needed f or Pain. 100 tablet apixaban (ELIQUIS) 5 mg tablet Take 1 tablet by mouth 2 times daily. 60 tablet 5 aspirin 81 MG tablet Take 2 tablets by mouth Daily. 60 tablet 5 atorvaSTATin (LIPITOR) 80 MG tablet Take 1 tablet by mouth nightly. 30 tablet 5 calcium-vitamin D (OSCAL) 500 mg-200 units per tablet Take 1 tablet by mouth Daily. clonazePAM (KLONOPIN) 0.5 mg tablet 0 cyanocobalamin (VITAMIN B-12) 1000 MCG tablet Take 1,000 mcg by mouth Daily. DULoxetine (CYMBALTA) [address] capsule Take 20 mg by mouth Daily. With 60 mg capsule fo r Total dose of 80mg DULoxetine (CYMBALTA) [address] capsule Take 60 mg by mouth Daily. With 20mg capsule for total dose of 80 mg EPINEPHrine auto-injector 0.3 mg/0.3 mL injection Inject 0.3 mLs into the muscle as nee ded for Anaphylaxis. 1 each 1 Homeopathic Products (LEG CRAMP RELIEF) TABS Take 1 tablet by mouth. isosorbide mononitrate (IMDUR) 30 mg ER tablet TAKE ONE TABLET BY MOUTH ONE TIME DAILY 90 tablet 3 levothyroxine (SYNTHROID) 175 MCG tablet Take 175 mcg by mouth every morning (before br eakfast). levothyroxine (SYNTHROID) 200 mcg tablet lisinopril-hydrochlorothiazide (PRINZIDE,ZESTORETIC) 20-25 MG per tablet Take 1 tablet by mouth Daily. 30 tablet 5 Magnesium 500 MG tablet Take 1 tablet by mouth Daily. 30 tablet 5 Multiple Vitamins-Minerals (MULTIVITAMIN PO) Take 1 tablet by mouth Daily. nitroglycerin (NITROSTAT) 0.[address] 1 tablet under the tongue every 5 thaddeus soledad as needed for Chest pain. 25 tablet 5 pantoprazole (PROTONIX) 40 mg tablet Take 1 tablet by mouth 2 times daily (before meals ). 84 tablet 1 QUEtiapine (SEROQUEL) 25 mg tablet traMADol (ULTRAM) 50 mg tablet Take 1 tablet by mouth every 8 hours as needed. 15 table t 0 UNABLE TO FIND Med Name: Resmed AirSense 10 autoset CPAP: 5-20cm while sleeping. No current facility-administered medications for this visit. ALLERGIES Allergies Allergen Reactions Abilify [Aripiprazole] Bee Venom Clonidine Derivatives Humalog [Insulin Lispro] Lantus [Insulin Glargine] Shellfish-Derived Products Statins Patient could not remember which statin caused her problems. She tolerates atorvastatin f ine ROS Review of Systems Constitutional: Negative for malaise/fatigue. Respiratory: Positive for shortness of breath. Cardiovascular: Positive for palpitations. Negative for chest pain and leg swelling. Musculoskeletal: Positive for falls. Neurological: Positive for dizziness. Negative for weakness. Lightheadedness -- yes Endo/Heme/Allergies: Bruises/bleeds easily. OBJECTIVE: PHYSICAL EXAM BP 140/74 | Pulse 64 Comment: irregular | Resp 16 | Ht 1.626 m (5' 4") | Wt 73 kg (160 l b 15 oz) | BMI 27.62 kg/m Physical Exam Constitutional: She is oriented to person, place, and time. She appears well-developed and well-nourished. Elderly female in no acute distress, arrives alone Neck: Normal carotid pulses and no JVD present. Carotid bruit is not present (referred murm ur). Cardiovascular: Normal rate, regular rhythm, S1 normal, S2 normal and intact distal pulses. PMI is not displaced. Exam reveals no gallop and no friction rub. Murmur heard. Systolic murmur is present with a grade of 3/6 at the upper right sternal border radiating to the neck. Holosystolic murmur of grade 3/6 is also present at the apex. Pulses: Carotid pulses are 2+ on the right side, and 2+ on the left side. Dorsalis pedis pulses are 2+ on the right side, and 2+ on the left side. Posterior tibial pulses are 1+ on the right side, and 1+ on the left side. Pulmonary/Chest: Effort normal and breath sounds normal. No accessory muscle usage. No resp iratory distress. She has no wheezes. She has no rhonchi. She has no rales. Abdominal: Soft. Normal appearance and normal aorta. She exhibits no abdominal bruit. There is no hepatosplenomegaly. There is no tenderness. Musculoskeletal: She exhibits no edema. Neurological: She is alert and oriented to person, place, and time. Gait (uses four wheeled walker) abnormal. Skin: Skin is warm and dry. No cyanosis. Nails show no clubbing. Psychiatric: She has a normal mood and affect. Her mood appears not anxious. She does not e xhibit a depressed mood. ECG: I personally independently reviewed ECG tracing during this visit (interpreted and rivka led by another provider): Results for orders placed or performed during the hospital encounter of 05/07/18 ECG 12 lead Result Value Ref Range INTERPRETATION TEXT Sinus bradycardia Septal infarct , age undetermined Abnormal ECG When compared with ECG of 08-OCT-2017 10:48, Septal infarct is now present initial QRS forces have changed in lead V3 Confirmed by TRINY WEBBER, NATHANAEL ([id number]) on 05/08/2018 7:49:50 AM LAB RESULTS reviewed during visit today primarily from [facility]: LIPID Lab Results Component Value Date CHOL 151 10/06/2017 TRIG 64 10/06/2017 HDL 84 06/03/2018 LDL 52 10/06/2017 CHOLHDL 1.8 10/06/2017 LDLEX 65 06/03/2018 HDLEX 2 06/03/2018 TRIGEX 66 06/03/2018 CHOLEX 162 06/03/2018 CHEMISTRY Lab Results Component Value Date GLU 150 (H) 05/07/2018 GLUEX 97 06/03/2018 NA 139 05/07/2018 NAEX 141 06/03/2018 K 4.3 05/07/2018 KEX 4.4 06/03/2018 CL 102 05/07/2018 CLEX 102 06/03/2018 CO2 24 05/07/2018 CO2EX 29 06/03/2018 CALCIUM 8.7 05/07/2018 ALKPHOS 84 05/07/2018 AST 56 (H) 05/07/2018 ASTEX 65 (A) 06/03/2018 ALT 49 (H) 05/07/2018 ALTEX 72 (A) 06/03/2018 BILITOT 0.7 05/07/2018 CREA 0.81 05/07/2018 BUN 15 05/07/2018 EGFREX >60 06/03/2018 CREEX 0.7 06/03/2018 HEMATOLOGY Lab Results Component Value Date WBC 6.2 05/07/2018 WBCEX 6.3 06/03/2018 HGB 13.3 05/07/2018 HGBEX 12.5 06/03/2018 HCT 41.2 05/07/2018 HCTEX 37.9 (A) 06/03/2018 PLT 184 05/07/2018 PLTEX 202 06/03/2018 No results found for: TSH, TSHEX, BNP, BNPEX, NTPROBNP I reviewed records from PCP for office visit on 07/12/2018 which is summarized in the HPI. RESULTS- I reviewed reports from [facility]: Nuclear Stress Test on 07/12/2018 shows, Persantine [...] r espiratory collapse, by Alicia Gonzáles MD. Above data and testing is reviewed this visit; testing below is historical data unless othe rwise specified. ASSESSMENT: 1. Coronary artery disease A. Echocardiogram 07/26/2014 shows normal left ventricular size, wall thickness a nd motion, preserved left ventricular systolic function, LVEF is 70-75%, there is evidence o f a sigmoid septum, mildly thickened and calcified trileaflet aortic valve with mild calcifi c aortic valve stenosis, there is mild aortic valve insufficiency, mild mitral valve regurgi tation, mild tricuspid valve regurgitation, normal right-sided pressure, normal IVC with nor mal respiratory collapse. B. Echocardiogram 07/26/2015 shows Normal LV size and systolic function with LVEF 70%, aortic valve sclerosis with mild to moderate stenosis and mild insufficiency, mild pul monary systolic hypertension, compared to patient's prior study of one year ago, no signific ant changes are noted. Juan Muro MD C. LHC 07/27/2015 shows moderate obstructive coronary artery disease with 90% genia nosis of the mid OMB2, non-ST elevation myocardial infarction secondary to subtotal occlusio n of the OMB 2 status post precipitous coronary intervention with a 2.5 12 mm PROMUS IGNACIA, n egative FFR to the mid RCA.with an FFR: 0.86, nonobstructive coronary artery disease in the LAD territory. Иван Kaur MD D. Echocardiogram 09/30/2015 shows Sinus rhythm, degenerative Valvular Heart Dise ase, moderate calcific /mild AI (calc ARISTIDES 1.2cm2, peak/mean gradients 25/16mmHg), mitral v alve has mild nodular calcification, trace MR, tricuspid valve grossly NML, mild TR, pulmoni c valve not seen well, borderline concentric LVH, systolic function NML, grade 1 diastolic a bnormality, LVEF >70%, mild LAE, RA/RV NML, no pericardial effusion, IVC appears NML, est sy stolic PAP 23-28mmHg. Denny MCCRACKEN. Nuclear Stress Test on 07/12/2018 shows, Persantine EKG is negative, normal P ersantine sestamibi myocardial perfusion imaging study, normal left ventricular size, wall t hickness and motion, preserved left ventricular systolic function, LVEF by gated SPECT is 80 %, by MD. Devaughn Cosme. Today, 08/31/2018, she is symptomatic with chest discomfort and shortness of breath on ex ertion. This could be related to coronary artery disease or her aortic valve. She will be fu rther evaluated with bilateral heart catheterization. She is on a medical regimen with long acting nitrate, aspirin, SMITA-I and statin. She stopped her beta-kristie in 2016 as she didn' t feel well with it, but doesn't remember specifics. Would be reasonable to retry it in the future. There are no signs or symptoms of overt congestive heart failure, and her physical exam sh ows no significant fluid retention. She is in class III- Symptoms with minimal exertion of the [employer] functional class. Heart failure stage A-pre-heart failure. 2. Aortic stenosis A. CT Angiogram neck w contrast 10/04/2015 limited examination secondary to alyse on artifact, 60% distal common and 55% proximal right internal carotid artery stenosis, 20% distal left common carotid artery stenosis, 50% left vertebral artery stenosis secondary to cervical spondylosis, 50% right and 65% left subclavian artery stenosis. Robert Oakley Echocardiogram 08/08/2016 shows the left ventricle is normal in size, wall th ickness and systolic function EF 60-65%, the diastolic filling pattern indicates impaired re laxation consistent with mild dysfunction (Grade I), the aortic valve is moderately calcifie d with moderate aortic stenosis and mild regurgitation, mild mitral regurgitation with mildl y enlarged left atrium, mild tricuspid regurgitation with no pulmonary hypertension, there i s none/trivial pericardial effusion. Shirley Dickey C. Echocardiogram on 07/15/2018 shows, mild left atrial dilatation, normal left ventricular size, wall thickness and motion, preserved left ventricular systolic function, L VEF is 70-75%, grade 1 left ventricular diastolic dysfunction, moderately thickened and calc ified trileaflet aortic valve with moderate calcific aortic valve stenosis, right coronary c senior care is immobile, there is a mild to moderate central aortic valve insufficiency, mildly thic kened and calcified mitral valve suggesting myxomatous change, there is a trace central mitr al valve regurgitation, mild mitral annular calcification, mild tricuspid valve regurgitatio n, borderline pulmonary hypertension with a peak systolic pressure of 35-40 mmHg, normal IVC with normal respiratory collapse, by MD. Srinath Cosme. Today, 08/31/2018, she has shortness of breath, chest discomfort and lightheadedness with exertion. I am concerned that she is more symptomatic with her aortic valve than the degree of stenosis indicated by the echocardiogram. Will evaluate further with bilateral heart cat heterization. 3. Paroxysmal atrial fibrillation A. 2 week event monitor 04/15/2017 shows predominantly in sinus rhythm with a to dustin burden of bradycardia 22 percent and an average heart rate of 62 with a range of 51-85 b pm. Arrhythmias noted were rare PACs and PVCs with a total of 21 episodes of paroxysmal supr aventricular tachycardia, some consistent with atrial fibrillation with a longest 28 beats B. Her risks for stroke include: Hx of HTN (1), Stroke/TIA/Thrombo-embolism (2), Vascular disease (1), Age 65 to 74 (1) and Female Gender (1). Her [id number] score is 6, which give s an estimated 9.8% risk of stroke per year in atrial fibrillation. Her bleeding risks incl ude: HTN (1) and >64 YO (1) . Her HASBLED score is 2-3, which confers an intermediate risk (4.1-5.8%) risk of bleed per year. She remains on apixaban to minimize risk of stroke in at rial fibrillation. Today, 08/31/2018, she is not on any medication for rate or rhythm control. She draper s been noticing palpitations. Will have her wear mobile cardiac telemetry, and based on find ings would likely retry her on low dose beta-kristie as it is unclear what her reaction to i t was in the past for her to stop it. 4. Peripheral arterial disease, status post CVA: A. In 2016, about 6 months post NSTEMI, she had CVA, and had right carotid occlu gigi, and had stent to this at [facility]. . Today, 08/31/2018, she is on good medical therapy. No bruit is appreciated. 5. Hypertension, essential: A. Today, 08/31/2018, her blood pressure is borderline elevated. However her home blood pressure readings are good. 6. Obstructive sleep apnea A. Today, 08/31/2018, she is compliant with using her CPAP nightly. 7. Peptic ulcer disease /Syncope/GI bleeding Not otherwise addressed today 08/31/2018. 8. Type II diabetes mellitus; Not otherwise addressed today 08/31/2018. PLAN: 1. She will be scheduled for bilateral heart catheterization in the near future. She will h old the apixaban for 24 hours prior to procedure. 2. She will be scheduled for 30 day mobile cardiac telemetry to evaluate her atrial fibrill ation. 3. She will follow up in 6 weeks for office visit, or sooner with concerns. I spent 50 minutes face to face with the patient, with over 50% spent in counseling and/or coordination of care regarding aortic stenosis, coronary artery disease, atrial fibrillation , diagnosis and treatment options. Megan [employer] Medical Assistant am acting as a scribe on behalf of, and in the pres ence of NICOLE Harden. - Rashi Hampton 08/31/2018 9:54 IMaral ARNP, personally performed the services described in this documentation, as scribed in my presence and it is both accurate and complete. NICOLE Harden 08/31/2018 Portions of this chart may have been created with [employer] voice recognition software. Occasi onal wrong-word or sound-alike substitutions may have occurred due to the inherent dhillon itations of voice recognition software. Please read the chart carefully and recognize, using context, where these substitutions have occurred. documented in this encounter Plan of Treatment Not on filedocumented as of this encounter Procedures + +--------+ + + + | Procedure Name | Priori | Date/Time | Associated Diagnosis | Comments | | | ty | | | | + +--------+ + + + | ECG - EXTERNAL SCAN | | 02/07/2019 | | Results for this | | | | 12:00 AM | | procedure are in the | | | | PDT | | results section. | + +--------+ + + + | CV RHC | Routin | 09/26/2018 | | Results for this | | | e | 10:14 AM | | procedure are in the | | | | PDT | | results section. | + +--------+ + + + | CV LHC | Routin | 09/26/2018 | | Results for this | | | e | 10:14 AM | | procedure are in the | | | | PDT | | results section. | + +--------+ + + + documented in this encounter Results ECG - EXTERNAL SCAN (02/07/2019 12:00 AM PDT) + + + | Narrative | Performed At | + + + | Ordered by an | | | unspecified provider. | | + + + CV CARDIAC PROCEDURE (09/26/2018 10:14 AM PDT) + +-------+ + + + | Component | Value | Ref Range | Performed | Pathologist | | | | | At | Signature | + +-------+ + + + | LVEF-LVGRAM | 75 | % | [facility] | | | CARDIAC | | | | | | CATH | | | | | + +-------+ + + + + + | Specimen | + + | | + + + + ---+ | Narrative | Performed A t | + + ---+ | BILATERAL | [facility] | | CARDIAC CATHETERIZATION and CORONARY ANGIOGRAPHY PATIENT NAME/: | | | Le Rollins, (1945) MEDICAL RECORD NUMBER: | | | [id number] OF PROCEDURE: 09/26/2018 MACHINE STUFFER AUTOMATIC: Alicia | | | MD Nivia PROCEDURES PERFORMED:Coronary AngiographyLeft Heart | | | CatheterizationRight Heart CatheterizationLeft Ventriculography | | | Indications:Chest pain Brief Description of ProcedureConsent had been | | | obtained, a 'time out' performed and the patient was prepped and | | | draped in the usual sterile fashion. For arterial access modified | | | Seldinger technique was used to place a 7 Fr. sheath in the left | | | femoral artery.. Similarly venous access was obtained with a 7 Fr. | | | balloon tip Gordon-Silvio in the right femoral vein. The equipment was | | | exchanged over a wire and carefully aspirated and flushed throughout | | | the procedure. A balloon tip catheter was advanced and pressure | | | recordings made in the standard fashion. Coronary angiography was | | | performed and a catheter was passed across the aortic valve to obtain | | | left ventricular hemodynamics . After left ventriculography, a | | | pullback was performed. JL 3.5, 3 DRC and pigtail diagnostic | | | arterial catheters were used for this procedure. The patient | | | received a total of 0.5 mg of Versed and 25 Mcg of fentanyl | | | intravenously for conscious sedation during the procedure. A total | | | of 75 mL Omnipaque 350 contrast was utilized. The procedure had no | | | immediate complications. At the conclusion of the procedure, the | | | sheath was removed and hemostasis obtained with an Angio Seal. | | | Distal pulses were present and unchanged.. The venous sheath was | | | removed and manual compression was used for venous hemostasis. The | | | procedure had No immediate complications. I reviewed the patient's | | | pre-sedation assessment and vital signs, supervised and directed the | | | administration of moderate sedation with continuous [id number] | | | attendance. My intra-service time was 30 minutes. See the procedure | | | log for more details. FINDINGS:Hemodynamics:RA -3 mm HgRV -37/0 mm | | | HgPA -25/9 mm Hg with a mean of 18 mmHgWedge -9 mm HgAo -158/60 mm Hg | | | with a mean of 68 mm HgLV -173/7 mm HgLVEDP -15 mm Hg Using | | | thermodilution, cardiac output is 4.5 L/min and index is 2.5 L/min/kg | | | Left ventriculography: The left ventricular size and function were | | | normal. LVEF is calculated at 65%. There is no mitral valve | | | regurgitation noted. Left main artery: The left main artery is a | | | medium caliber vessel that bifurcates into the left anterior | | | descending artery and left circumflex artery. Left main artery has | | | is free of disease. Left anterior descending artery: The left | | | anterior descending artery is a medium caliber vessel that wraps | | | around the apex and gives rise to 2 diagonal branches. The vessel has | | | 50% stenosis proximally. It gives rise to 2 diagonal branches. | | | Left circumflex artery: The left circumflex artery is a medium | | | caliber vessel that is non dominant. The vessel has Stent | | | placement at the midportion, stent is patent. It gives rise to 1 OM | | | branches. Right coronary artery: The right coronary artery is a | | | medium caliber vessel that is dominant. The vessel has Stent | | | placement at the midportion. There is 90% stenosis at the midportion | | | right after the stent. It gives rise to a PDA and Posterolateral | | | branches. CONCLUSIONS:1. Severe single-vessel coronary disease; 90% | | | stenosis at the midportion of the dominant RCA, right after the mid | | | portion stent. Stent of the OM is patent.2. There is a right | | | dominate circulation.3. LV systolic function is normal, with an | | | estimated LV ejection fraction of 65%.4. Systemic blood pressure is | | | mildly elevated.5. Hemodynamics consistent with mild aortic stenosis. | | | There is also mild to moderate aortic valve insufficiency.6. Normal | | | right-sided pressure. Normal wedge pressure.7. There was successful | | | Angio Seal placement to the puncture site in the right femoral artery. | | | PLAN:Coronary revascularization with PCI of RCA. Case is discussed | | | with Dr. Guadalupe, interventionalists at [facility].. | | | | | | PRIMARY CARE PROVIDER:Ole D. Madden, DO For additional detail | | | as to the procedures performed and the equipment that was utilized, | | | please refer to the Procedure Log. | | | | | |Left ventriculography: The left ventricular size and function were | | |normal. LVEF is calculated at 65%. There is no mitral valve | | |regurgitation noted. | | | | | |Left main artery: The left main artery is a medium caliber vessel that | | |bifurcates into the left anterior descending artery and left circumflex | | |artery. Left main artery has is free of disease. | | | | | |Left anterior descending artery: The left anterior descending artery is a | | |medium caliber vessel that wraps around the apex and gives rise to 2 | | |diagonal branches. The vessel has 50% stenosis proximally. It gives rise | | |to 2 diagonal branches. | | | | | |Left circumflex artery: The left circumflex artery is a medium caliber | | |vessel that is non dominant. The vessel has Stent placement at the | | |midportion, stent is patent. It gives rise to 1 OM branches. | | | | | | | | |Right coronary artery: The right coronary artery is a medium caliber | | |vessel that is dominant. The vessel has Stent placement at the | | |midportion. There is 90% stenosis at the midportion right after the | | |stent. It gives rise to a PDA and Posterolateral branches. | | | | | | | | | | | | | | |CONCLUSIONS: | | |1. Severe single-vessel coronary disease; 90% stenosis at the midportion | | |of the dominant RCA, right after the mid portion stent. Stent of the OM | | |is patent. | | |2. There is a right dominate circulation. | | |3. LV systolic function is normal, with an estimated LV ejection fraction | | |of 65%. | | |4. Systemic blood pressure is mildly elevated. | | |5. Hemodynamics consistent with mild aortic stenosis. There is also mild | | |to moderate aortic valve insufficiency. | | |6. Normal right-sided pressure. Normal wedge pressure. | | |7. There was successful Angio Seal placement to the puncture site in the | | |right femoral artery. | | | | | | | | | | | |PLAN: | | |Coronary revascularization with PCI of RCA. | | | | | |Case is discussed with Dr. Guadalupe, interventionalists at [facility]. | | |. | | | | | | | | | | | | | | | | | | | | | | | |PRIMARY CARE PROVIDER: | | |Ole Madden DO | | | | | | | | |For additional detail as to the procedures performed and the equipment | | |that was utilized, please refer to the Procedure Log. | | | | | + + ---+ + + | Procedure Note | + + | Alicia Gonzáles MD - 09/26/2018 11:19 AM PDT Formatting of this note might be | | different from the original.BILATERAL CARDIAC CATHETERIZATION and CORONARY | | ANGIOGRAPHYPATIENT NAME/: Le Rollins, (1945) MEDICAL RECORD NUMBER: | | [id number] OF PROCEDURE: 09/26/2018PRIMARY MOTION PICTURE CAMERA LENS TECHNICIAN: Alicia Gonzáles MD | | PROCEDURES PERFORMED:Coronary AngiographyLeft Heart CatheterizationRig Heart | | CatheterizationLeft Ventriculography Indications:Chest painBrief Description of | | ProcedureConsent had been obtained, a 'time out' performed and the patient was prepped | | and draped in the usual sterile fashion. For arterial access modified Seldinger | | technique was used to place a 7 Fr. sheath in the left femoral artery.. Similarly | | venous access was obtained with a 7 Fr. balloon tip Gordon-Silvio in the right femoral vein. | | The equipment was exchanged over a wire and carefully aspirated and flushed throughout | | the procedure. A balloon tip catheter was advanced and pressure recordings made in the | | standard fashion. Coronary angiography was performed and a catheter was passed across | | the aortic valve to obtain left ventricular hemodynamics . After left ventriculography, | | a pullback was performed. JL 3.5, 3 DRC and pigtail diagnostic arterial catheters were | | used for this procedure. The patient received a total of 0.5 mg of Versed and 25 Mcg of | | fentanyl intravenously for conscious sedation during the procedure. A total of 75 mL | | Omnipaque 350 contrast was utilized. The procedure had no immediate complications.At | | the conclusion of the procedure, the sheath was removed and hemostasis obtained with an | | Angio Seal. Distal pulses were present and unchanged.. The venous sheath was removed | | and manual compression was used for venous hemostasis. The procedure had No immediate | | complications. I reviewed the patient's pre-sedation assessment and vital signs, | | supervised and directed the administration of moderate sedation with continuous | | [id number] attendance. My intra-service time was 30 minutes. See the procedure log for | | more details. FINDINGS:Hemodynamics:RA -3 mm HgRV -37/0 mm HgPA -25/9 mm Hg with a mean | | of 18 mmHgWedge -9 mm HgAo -158/60 mm Hg with a mean of 68 mm HgLV -173/7 mm HgLVEDP | | -15 mm Hg Using thermodilution, cardiac output is 4.5 L/min and index is 2.5 L/min/kg | | Left ventriculography: The left ventricular size and function were normal. LVEF is | | calculated at 65%. There is no mitral valve regurgitation noted.Left main artery: The | | left main artery is a medium caliber vessel that bifurcates into the left anterior | | descending artery and left circumflex artery. Left main artery has is free of | | disease.Left anterior descending artery: The left anterior descending artery is a | | medium caliber vessel that wraps around the apex and gives rise to 2 diagonal branches. | | The vessel has 50% stenosis proximally. It gives rise to 2 diagonal branches.Left | | circumflex artery: The left circumflex artery is a medium caliber vessel that is non | | dominant. The vessel has Stent placement at the midportion, stent is patent. It gives | | rise to 1 OM branches.Right coronary artery: The right coronary artery is a medium | | caliber vessel that is dominant. The vessel has Stent placement at the midportion. | | There is 90% stenosis at the midportion right after the stent. It gives rise to a PDA | | and Posterolateral branches. CONCLUSIONS:1. Severe single-vessel coronary disease; 90% | | stenosis at the midportion of the dominant RCA, right after the mid portion stent. | | Stent of the OM is patent.2. There is a right dominate circulation.3. LV systolic | | function is normal, with an estimated LV ejection fraction of 65%.4. Systemic blood | | pressure is mildly elevated.5. Hemodynamics consistent with mild aortic stenosis. There | | is also mild to moderate aortic valve insufficiency.6. Normal right-sided pressure. | | Normal wedge pressure.7. There was successful Angio Seal placement to the puncture site | | in the right femoral artery. PLAN:Coronary revascularization with PCI of RCA.Case is | | discussed with Dr. Guadalupe, interventionalists at [facility].. [facility] CARE PROVIDER:Ole Madden, | | DOFor additional detail as to the procedures performed and the equipment that was | | utilized, please refer to the Procedure Log. | | | |Left ventriculography: The left ventricular size and function were normal. LVEF is calcul ated at 65%. There is no mitral valve regurgitation noted. | | | |Left main artery: The left main artery is a medium caliber vessel that bifurcates into the left anterior descending artery and left circumflex artery. Left main artery has is free o f disease. | | | |Left anterior descending artery: The left anterior descending artery is a medium caliber v essel that wraps around the apex and gives rise to 2 diagonal branches. The vessel has 50% stenosis proximally. It gives rise to 2 diagonal branches. | | | |Left circumflex artery: The left circumflex artery is a medium caliber vessel that is non dominant. The vessel has Stent placement at the midportion, stent is patent. It gives ris e to 1 OM branches. | | | | | |Right coronary artery: The right coronary artery is a medium caliber vessel that is domina nt. The vessel has Stent placement at the midportion. There is 90% stenosis at the midpor tion right after the | |stent. It gives rise to a PDA and Posterolateral branches. | | | | | | | | | |CONCLUSIONS: | |1. Severe single-vessel coronary disease; 90% stenosis at the midportion of the dominant RC A, right after the mid portion stent. Stent of the OM is patent. | |2. There is a right dominate circulation. | |3. LV systolic function is normal, with an estimated LV ejection fraction of 65%. | |4. Systemic blood pressure is mildly elevated. | |5. Hemodynamics consistent with mild aortic stenosis. There is also mild to moderate aorti c valve insufficiency. | |6. Normal right-sided pressure. Normal wedge pressure. | |7. There was successful Angio Seal placement to the puncture site in the right femoral kentrell ry. | | | | | | | |PLAN: | |Coronary revascularization with PCI of RCA. | | | |Case is discussed with Dr. Guadalupe, interventionalists at [facility]. | |. | | | | | | | | | | | | | | | |PRIMARY CARE PROVIDER: | |Ole Madden DO | | | | | |For additional detail as to the procedures performed and the equipment that was utilized, vinicius pisano refer to the Procedure Log. | + + + +---------+ + + | Performing | Address | City/State/Zipcode | Phone Number | | Organization | | | | + +---------+ + + | [facility] | | | | + +---------+ + + documented in this encounter Visit Diagnoses + + | Diagnosis | + + | Coronary artery disease, angina presence unspecified, unspecified vessel or lesion | | type, unspecified whether [place] or transplanted heart | + + | Stable angina pectoris (HCC) | + + documented in this encounter Administered Medications + +--------+---------+------+------+------+ | Medication Order | MAR | Action | Dose | Rate | Site | | | Action | Date | | | | + +--------+---------+------+------+------+ + +---+ | acetaminophen (TYLENOL) tablet | | | 650 mg 650 mg, Oral, EVERY 6 | | | HOURS PRN, Pain, Fever, Starting | | | 09/26/18 at 1034, Post-op/Phase | | | II | | + +---+ | | | + +---+ + +-------+ +--------+---+---+ | fentaNYL (PF) injection ONCE | Given | 09/27/19 | 25 mcg | | | | PRN, Starting Wed09/26/18 at 0932, | | 19 9:59 | | | | | Intra-op | | AM PDT | | | | + +-------+ +--------+---+---+ +-------+ +--------+---+---+ | Given | 09/27/19 | 25 mcg | | | | | 19 9:32 | | | | | | AM PDT | | | | +-------+ +--------+---+---+ +---+---+ | | | +---+---+ + +-------+ +--------+---+---+ | iohexol (OMNIPAQUE 350) 350 | Given | 09/27/19 | 75 mLs | | | | mg/mL injection ONCE PRN, | | 19 10:00 | | | | | Starting Wed09/26/18 at 1000, | | AM PDT | | | | | Intra-op | | | | | | + +-------+ +--------+---+---+ + +---+ | | | + +---+ | lidocaine 1%-EPINEPHrine | | | 1:100,000 injection 5 mL 5 mL, | | | Infiltration, ONCE PRN, for | | | oozing at cardiac cath site, | | | Starting 09/26/18 at 1034, For | | | 1 dose, For continued oozing | | | after sheath removal despite | | | pressure dressing and manual | | | pressure. Inject to affected area | | | x 1 followed by 10 minutes of | | | manual compression., | | | Post-op/Phase II | | + +---+ | | | + +---+ + +-------+ +-------+---+ + | lidocaine buffered 0.9% | Given | 09/27/19 | 5 mLs | | Surgical | | injection ONCE PRN, Starting Wed | | 9:33 | | | Site | | 09/26/18 at 0933, Intra-op | | AM PDT | | | | + +-------+ +-------+---+ + +---+---+ | | | +---+---+ + +-------+ +--------+---+---+ | midazolam (VERSED) 1 mg/mL | Given | 09/27/19 | 0.5 mg | | | | injection ONCE PRN, Starting Mon | | 19 9:32 | | | | | 09/26/18 at 0932, Intra-op | | AM PDT | | | | + +-------+ +--------+---+---+ + +---+ | | | + +---+ | nitroglycerin (NITROSTAT) SL | | | tablet 0.4 mg 0.4 mg, | | | Sublingual, EVERY 5 MIN PRN, | | | Chest pain, Starting 09/26/18 | | | at 1034, May give up to 3 doses. | | | Notify physician after 2nd dose | | | given. Hold for SBP<100, | | | Post-op/Phase II | | + +---+ | | | + +---+ | ondansetron (ZOFRAN) injection | | | 4-8 mg 4-8 mg, Intravenous, | | | EVERY 6 HOURS PRN, Nausea, | | | Vomiting, Starting 09/26/18 at | | | 1034, Post-op/Phase II | | + +---+ | | | + +---+ + + + +-------+-------+---+ | sodium chloride 0.9% (NS) | Rate/Dos | 09/27/19 | 100 | 100 | | | infusion at 125 mL/hr, | e Change | 19 9:32 | mL/hr | mL/hr | | | Intravenous, CONTINUOUS, Starting | | AM PDT | | | | | 09/26/18 at 0830, For | | | | | | | procedure only, not to exceed 1 | | | | | | | liter., Pre-op | | | | | | + + + +-------+-------+---+ +---+---+ | | | +---+---+ documented in this encounter
--- OUTSIDE RECORDS SUMMARY | ~2020-02-03 | XMS | Encounter Summary ---
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 Name | Role | Phone | [...] | | | Services | Medicine | Parasomnia | Marck Yo | [place] [address] | | | Required | | Procedures | MD [address] | | | | | [place] POLYSOM | [address] | [place], | | | | | 6/>YRS SLEEP | [facility] | [place] [address] | | | | | 4/> ADDL | [place], [place] | Phone: | | | | | AZAM ATTND | [phone] | [phone] | | | | | DC POLYSOM | Phone: | Fax: | | | | | 6/>YRS SLEEP | [phone] | [phone] | | | | | W/CPAP 4/> | Fax: | | | | | | ADDL AZAM | [phone] | | | | | | ATTND S/N | | | +--------+ + + + + + Encounter Details +--------+ + + + + | Date | Type | Department | Care Team | Description | +--------+ + + + + | 09/29/ | Hospital | [facility] | Marck Brar | Parasomnia | | 2017 - | Encounter | MED CTR SLEEP | MD [address] | | | | | [place] [address] | [address] | | | 09/30/ | | [place], [place] | [place] [address] | | | 2017 | | [address] | [phone] | | | | | [phone] | | | +--------+ + + + [...] + + + +---------+ + + | Cholecalciferol | Take 50,000 Units by | | 0 | | | | (VITAMIN D3) 93106 | mouth Once a week. | | | | 8 | | units TABS | | | | | | [...] + + documented as of this encounter Procedure Notes Marck Brar Jr., MD - 10/06/2016 1:08 PM PDTAssociated Order(s): SLEEP STUDY DIAGNOST IC ONLY NO PAPProcedure(s): SLEEP STUDY DIAGNOSTIC ONLY NO PAPPre-Proced ure Diagnose(s): NEHEMIAH (obstructive sleep apnea)Post-Procedure Diagnose(s): NEHEMIAH (obstructive s leep apnea); Mixed sleep apnea Debbie [facility] [place] [address] Polysomnogram Report on Le Mena Pedrodanilo performed on September 29, 2016. Clinical Information: Le Rollins is a 71 y.o. female who underwent diagnostic noctu rnal polysomnography on September 29, [address] Wilson Lin because of NEHEMIAH. Split-night polysomnography performed in 2011 at [facility] in [facility] rated a pretreatment Apnea Hypopnea Index index of 93.5 with a karan oxygen saturation of 82 %. She was initially treated with CPAP. Since then she has undergone gastric bypass surger y which resulted in an 80 pound weight loss. Polysomnography in our sleep center on February 182014 demonstrated an Apnea Hypopnea Index of 11.2 with normal oxygen saturation. The patient elected to be treated conservatively. Since then however she has had a right total knee replacement complicated a month later in July, with myocardial infarction. She had a stroke in September 2015. She is now reevaluated for obstructive sleep apnea. Technical Information: Please see technical data which is attached. Definitions (The AASM Manual for the Scoring of Sleep and Associated Events, Version 2.4; 2 017): Apnea: There is a drop in the [...] the second portion of the event. Hypopnea: The peak signal excursions drop by greater than or equal to 30% of pre-event bas haydee using a recommended or alternative airflow sensor and the duration of the >= 30% drop in signal excursion is greater than or equal to 10 seconds and there is a greater than or eq ual to a 4% oxygen desaturation from pre-event baseline. Respiratory Event Related Arousal: A sequence of [...] Sleep Architecture: Lights out was recorded at 2322 hundred hours on September 29, 2016 and ligh ts on was recorded at 0831 hundred hours on September 30, 2016. The latency to sleep onset was pro longed at 32.5 minutes. The patient slept for 435 minutes out of 550.5 minutes of study time resulting an a sleep efficiency that low at 79 %. The amount of N1 sleep was mildly elevat ed at 13.7 % of the Total Sleep Time; the amount of N2 sleep was normal at 63.3 % of the Tot al Sleep Time; the amount of N3 sleep was low at 2.4 % of the Total Sleep Time; the amount o f REM sleep was normal at 20.6 % of the Total Sleep Time and the latency to REM sleep to 253 .5 minutes. Sleep in the following positions was recorded: left lateral decubitus 2.2 %, right lateral decubitus 82.3 %, supine 15.5 %, prone 0 %. Sleep was significantly fragmented; the Arousal Index was 41.2. The patient reported this to be a usual night's sleep. Cardiopulmonary Monitoring: The heart rate averaged in the mid 60s beats per minute. Mild rate variability was noted. The rhythm was sinus. In the course of the evening there were 69 obstructive apneas, 46 mixed apneas, 6 central a pneas, 24 hypopneas, and 12 Respiratory Effort Related Arousals (RERA's). The Respiratory Di sturbance Index (RDI) was elevated at 21.7; the Apnea-Hypopnea Index elevated at 20; the Industrial Relations Worker ea Index (AI) elevated at 16.7. The respiratory events were significantly positional. The e vents were nearly exclusively seen in the supine position (supine Apnea Hypopnea Index index 98.7, nonsupine Apnea Hypopnea Index index 5.6). The respiratory events occasioned significant sleep fragmentation; the Respiratory Arousal Index was 18.9. The karan oxygen saturation was 84 % and the patient spent 2.3 minutes with an oxygen satur ation of less than 88%. ETCO2 was mildly elevated (end tidal CO2 50-54 mmHg for 185 minutes, 55-59 mmHg for 6 minut es). Limb Movement Monitoring: There were 0 Periodic Limb Movements (PLMS Index of 0) of which 0 were associated with arousals; the PLMS Arousal Index was normal at 0. Interpretation: This polysomnogram is abnormal secondary to: Obstructive sleep apnea is diagnosed. This is associated with minimal oxygen desaturation but it is associated with sleep fragmentation. It is primarily seen in the supine position. Associated mild hypoventilation. To a lesser degree mixed sleep apnea also appears to be present. Suggestions: 1. The principles of sleep hygiene should be reviewed with the patient. 2. Polysomnographically guided CPAP titration is advised. If mixed apneas persist or Cent ral apneas appear on CPAP and cannot be controlled with CPAP then ASV positive airway pressu re will likely be required. Marck Brar Jr., MD, [facility] Technical Services Librarian [facility] [place], [place] Clinical shot fireman [place], [place] docum ented in this encounter Plan of Treatment Not on filedocumented as of this encounter Procedures + +--------+ + + + | Procedure Name | Priori | Date/Time | Associated Diagnosis | Comments | | | ty | | | | + +--------+ + + + | SLEEP STUDY | Routin | 10/06/2016 | | Results for this | | DIAGNOSTIC ONLY NO | e | 1:18 PM | | procedure are in the | | PAP | | PDT | | results section. | + +--------+ + + + | SLEEP STUDY | Routin | 10/06/2016 | | Results for this | | DIAGNOSTIC ONLY NO | e | 1:18 PM | | procedure are in the | | PAP | | PDT | | results section. | + +--------+ + + + documented in this encounter Results Sleep study diagnostic only (no PAP) (10/06/2016 1:18 PM PDT) + + + | Narrative | Performed At | + + + | Marck Yo | | | Maykel Scott MD 10/06/2016 13:18 [facility] | | | [place] [address] | | | Polysomnogram Report on Le Rollins performed on September 29, 2016. | | | Clinical Information: Le Rollins is a 71 y.o. female who | | | underwent diagnostic nocturnal polysomnography on September 29, 2016 on | | | referral from Dr. Wilson Lin because of NEHEMIAH. Split-night | | | polysomnography performed in 2011 at [facility] in | | | [place] demonstrated a pretreatment Apnea Hypopnea Index index of | | | 93.5 with a karan oxygen saturation of 82%. She was initially | | | treated with CPAP. Since then she has undergone gastric bypass | | | surgery which resulted in an 80 pound weight loss. Polysomnography | | | in our sleep center on February 182014 demonstrated an Apnea | | | Hypopnea Index of 11.2 with normal oxygen saturation. The patient | | | elected to be treated conservatively. Since then however she has had | | | a right total knee replacement complicated a month later in July, | | | 2015 with myocardial infarction. She had a stroke in September 2015. | | | She is now reevaluated for obstructive sleep apnea. Technical | | | Information: Please see technical data which is attached. Definitions | | | (The AASM Manual for the Scoring of Sleep and Associated Events, | | | Version 2.4; 2017): Apnea: There is a drop in the peak signal | | | excursion by 90% or greater of pre-event baseline using an oronasal | | | thermal sensor (diagnostic study), PAP device flow (titration study), | | | or an alternative apnea sensor (diagnostic study); the duration of the | | | 90% or greater drop in sensor signal is 10 seconds or longer. | | | Obstructive Apnea: Event associated with continued or increased | | | inspiratory effort throughout the entire period of absent airflow. | | | Central Apnea: Event associated with absent inspiratory effort | | | throughout the entire period of absent airflow. Mixed Apnea: Event | | | associated with absent inspiratory effort in the initial portion of | | | the event followed by resumption of inspiratory effort during the | | | second portion of the event. Hypopnea: The peak signal excursions drop | | | by greater than or equal to 30% of pre-event baseline using a | | | recommended or alternative airflow sensor and the duration of the >= | | | 30% drop in signal excursion is greater than or equal to 10 seconds | | | and there is a greater than or equal to a 4% oxygen desaturation from | | | pre-event baseline. Respiratory Event Related Arousal: A sequence of | | | breaths lasting 10 seconds or longer characterized by increasing | | | respiratory effort or by flattening of the inspiratory portion of the | | | nasal pressure (diagnostic study) or PAP device flow (titration study) | | | waveform leading to arousal from sleep when the sequence of breaths | | | does not meet criteria for an apnea or hypopnea. Sleep Architecture: | | | Lights out was recorded at 2322 hundred hours on September 29, 2016 and | | | lights on was recorded at 0831 hundred hours on September 30, 2016. The | | | latency to sleep onset was prolonged at 32.5 minutes. The patient | | | slept for 435 minutes out of 550.5 minutes of study time resulting an | | | a sleep efficiency that low at 79 %. The amount of N1 sleep was | | | mildly elevated at 13.7 % of the Total Sleep Time; the amount of N2 | | | sleep was normal at 63.3 % of the Total Sleep Time; the amount of N3 | | | sleep was low at 2.4 % of the Total Sleep Time; the amount of REM | | | sleep was normal at 20.6 % of the Total Sleep Time and the latency to | | | REM sleep to 253.5 minutes. Sleep in the following positions was | | | recorded: left lateral decubitus 2.2 %, right lateral decubitus 82.3 | | | %, supine 15.5 %, prone 0 %. Sleep was significantly fragmented; the | | | Arousal Index was 41.2. The patient reported this to be a usual | | | night's sleep. Cardiopulmonary Monitoring: The heart rate averaged in | | | the mid 60s beats per minute. Mild rate variability was noted. The | | | rhythm was sinus. In the course of the evening there were 69 | | | obstructive apneas, 46 mixed apneas, 6 central apneas, 24 hypopneas, | | | and 12 Respiratory Effort Related Arousals (RERA's). The Respiratory | | | Disturbance Index (RDI) was elevated at 21.7; the Apnea-Hypopnea Index | | | elevated at 20; the Apnea Index (AI) elevated at 16.7. The | | | respiratory events were significantly positional. The events were | | | nearly exclusively seen in the supine position (supine Apnea Hypopnea | | | Index index 98.7, nonsupine Apnea Hypopnea Index index 5.6). The | | | respiratory events occasioned significant sleep fragmentation; the | | | Respiratory Arousal Index was 18.9. The karan oxygen saturation was 84 | | | % and the patient spent 2.3 minutes with an oxygen saturation of less | | | than 88%. ETCO2 was mildly elevated (end tidal CO2 50-54 mmHg for 185 | | | minutes, 55-59 mmHg for 6 minutes). Limb Movement Monitoring: There | | | were 0 Periodic Limb Movements (PLMS Index of 0) of which 0 were | | | associated with arousals; the PLMS Arousal Index was normal at 0. | | | Interpretation: This polysomnogram is abnormal secondary to: | | | Obstructive sleep apnea is diagnosed. This is associated with | | | minimal oxygen desaturation but it is associated with sleep | | | fragmentation. It is primarily seen in the supine position. | | | Associated mild hypoventilation.To a lesser degree mixed sleep apnea | | | also appears to be present. Suggestions:1. The principles of sleep | | | hygiene should be reviewed with the patient.2. Polysomnographically | | | guided CPAP titration is advised. If mixed apneas persist or Central | | | apneas appear on CPAP and cannot be controlled with CPAP then ASV | | | positive airway pressure will likely be required. Marck Brar, | | | MD Tyler, [facility]ERSMMedical DirectorNea [facility] | | | [place], [place] | | | Manager Shift of [place], [place] | | |elevated at 20; the Apnea Index (AI) elevated at 16.7. The | | |respiratory events were significantly positional. The events | | |were nearly exclusively seen in the supine position (supine Apnea | | |Hypopnea Index index 98.7, nonsupine Apnea Hypopnea Index index | | |5.6). | | | | | |The respiratory events occasioned significant sleep | | |fragmentation; the Respiratory Arousal Index was 18.9. | | | | | |The karan oxygen saturation was 84 % and the patient spent 2.3 | | |minutes with an oxygen saturation of less than 88%. | | | | | |ETCO2 was mildly elevated (end tidal CO2 50-54 mmHg for 185 | | |minutes, 55-59 mmHg for 6 minutes). | | | | | |Limb Movement Monitoring: There were 0 Periodic Limb Movements | | |(PLMS Index of 0) of which 0 were associated with arousals; the | | |PLMS Arousal Index was normal at 0. | | | | | |Interpretation: This polysomnogram is abnormal secondary to: | | | | | |Obstructive sleep apnea is diagnosed. This is associated with | | |minimal oxygen desaturation but it is associated with sleep | | |fragmentation. It is primarily seen in the supine position. | | |Associated mild hypoventilation. | | |To a lesser degree mixed sleep apnea also appears to be present. | | | | | |Suggestions: | | |1. The principles of sleep hygiene should be reviewed with the | | |patient. | | |2. Polysomnographically guided CPAP titration is advised. If | | |mixed apneas persist or Central apneas appear on CPAP and cannot | | |be controlled with CPAP then ASV positive airway pressure will | | |likely be required. | | | | | |Marck Brar Jr., MD, [facility] | | |Technical Services Librarian | | |[facility]bie [facility] | | |[facility] | | |ROGERIO Urena | | |Clinical shot fireman | | |[facility] | | |[place] | | + + + + + | Procedure Note | + + | Marck Brar Jr., MD - 10/06/2016 1:08 PM PDT [facility] | | Disorders [place], [place] [address]Adllorimqnwzc Report on | | Le Rollins performed on September 29, 2016.Clinical Information: Le Rollins is a | | 71 y.o. female who underwent diagnostic nocturnal polysomnography on September 29, 2016 on | | referral from Dr. Wilson Lin because of NEHEMIAH. Split-night polysomnography | | performed in 2011 at [facility] in [place] demonstrated a pretreatment | | Apnea Hypopnea Index index of 93.5 with a karan oxygen saturation of 82%. She was | | initially treated with CPAP. Since then she has undergone gastric bypass surgery which | | resulted in an 80 pound weight loss. Polysomnography in our sleep center on February 18 | | 2014 demonstrated an Apnea Hypopnea Index of 11.2 with normal oxygen saturation. The | | patient elected to be treated conservatively. Since then however she has had a right | | total knee replacement complicated a month later in July, with myocardial | | infarction. She had a stroke in September 2015. She is now reevaluated for obstructive | | sleep apnea.Technical Information: Please see technical data which is | | attached.Definitions (The AASM Manual for the Scoring of Sleep and Associated Events, | | Version 2.4; 2017): Apnea: There is a drop in the peak signal excursion by 90% or | | greater of pre-event baseline using an oronasal thermal sensor (diagnostic study), PAP | | device flow (titration study), or an alternative apnea sensor (diagnostic study); the | | duration of the 90% or greater drop in sensor signal is 10 seconds or longer. | | Obstructive Apnea: Event associated with continued or increased inspiratory effort | | throughout the entire period of absent airflow. Central Apnea: Event associated with | | absent inspiratory effort throughout the entire period of absent airflow. Mixed Apnea: | | Event associated with absent inspiratory effort in the initial portion of the event | | followed by resumption of inspiratory effort during the second portion of the event. | | Hypopnea: The peak signal excursions drop by greater than or equal to 30% of pre-event | | baseline using a recommended or alternative airflow sensor and the duration of the >= | | 30% drop in signal excursion is greater than or equal to 10 seconds and there is a | | greater than or equal to a 4% oxygen desaturation from pre-event baseline. Respiratory | | Event Related Arousal: A sequence of breaths lasting 10 seconds or longer characterized | | by increasing respiratory effort or by flattening of the inspiratory portion of the | | nasal pressure (diagnostic study) or PAP device flow (titration study) waveform leading | | to arousal from sleep when the sequence of breaths does not meet criteria for an apnea | | or hypopnea.Sleep Architecture: Lights out was recorded at 2322 hundred hours on September | | 2016 and lights on was recorded at 0831 hundred hours on September 30, 2016. The latency to | | sleep onset was prolonged at 32.5 minutes. The patient slept for 435 minutes out of | | 550.5 minutes of study time resulting an a sleep efficiency that low at 79 %. The amount | | of N1 sleep was mildly elevated at 13.7 % of the Total Sleep Time; the amount of N2 | | sleep was normal at 63.3 % of the Total Sleep Time; the amount of N3 sleep was low at | | 2.4 % of the Total Sleep Time; the amount of REM sleep was normal at 20.6 % of the Total | | Sleep Time and the latency to REM sleep to 253.5 minutes.Sleep in the following | | positions was recorded: left lateral decubitus 2.2 %, right lateral decubitus 82.3 %, | | supine 15.5 %, prone 0 %.Sleep was significantly fragmented; the Arousal Index was | | 41.2.The patient reported this to be a usual night's sleep.Cardiopulmonary Monitoring: | | The heart rate averaged in the mid 60s beats per minute. Mild rate variability was | | noted. The rhythm was sinus.In the course of the evening there were 69 obstructive | | apneas, 46 mixed apneas, 6 central apneas, 24 hypopneas, and 12 Respiratory Effort | | Related Arousals (RERA's). The Respiratory Disturbance Index (RDI) was elevated at 21.7; | | the Apnea-Hypopnea Index elevated at 20; the Apnea Index (AI) elevated at 16.7. The | | respiratory events were significantly positional. The events were nearly exclusively | | seen in the supine position (supine Apnea Hypopnea Index index 98.7, nonsupine Apnea | | Hypopnea Index index 5.6). The respiratory events occasioned significant sleep | | fragmentation; the Respiratory Arousal Index was 18.9.The karan oxygen saturation was 84 | | % and the patient spent 2.3 minutes with an oxygen saturation of less than 88%.ETCO2 | | was mildly elevated (end tidal CO2 50-54 mmHg for 185 minutes, 55-59 mmHg for 6 | | minutes).Limb Movement Monitoring: There were 0 Periodic Limb Movements (PLMS Index of | | 0) of which 0 were associated with arousals; the PLMS Arousal Index was normal at | | 0.Interpretation: This polysomnogram is abnormal secondary to:Obstructive sleep apnea is | | diagnosed. This is associated with minimal oxygen desaturation but it is associated | | with sleep fragmentation. It is primarily seen in the supine position. Associated mild | | hypoventilation.To a lesser degree mixed sleep apnea also appears to be | | present.Suggestions:1. The principles of sleep hygiene should be reviewed with the | | patient.2. Polysomnographically guided CPAP titration is advised. If mixed apneas | | persist or Central apneas appear on CPAP and cannot be controlled with CPAP then ASV | | positive airway pressure will likely be required.Marck Brar Jr., MD, FAASMMedical | | [facility] | | Jacki Galarzainical Manager Shift of MedicineLifePoint Hospitals | | [facility] [place] | + + documented in this encounter Visit Diagnoses + + | Diagnosis | + + | Parasomnia Other dysfunctions of sleep stages or arousal from sleep | + + documented in this encounter"
--- OUTSIDE RECORDS SUMMARY | ~2020-02-03 | XMS | Encounter Summary ---
Demographics + + + | Address | [address] | | | [place] [address] | + + + | Home Phone | | + + + | Preferred Language | Unknown | + + + | Marital Status | Single | + + + | Orthodoxy Affiliation | 1013 | + + + | Race | White | + + + | Ethnic Group | Not or | + + + Author + + + | Author | [facility] | | | and [place] | + + + | Organization | [facility] | | | [...] Team Providers + +------+ + | Care Corporate Services Manager Name | Role | Phone | [...] valve | [address] | | | | | stenosis, | [address] | [place], | | | | | etiology of | [place], | [place] | | | | | cardiac | [place] [address] | [address] | | | | | valve | Phone: | Phone: | | | | | disease | [phone] | [phone] | | | | | unspecified | Fax: | Fax: | | | | | Procedures | [phone] | [phone] | | | | | NM Nuclear [...] | | | | | | STUDIES ID | | | | | | | CV STRS TST | | | | | | | XERS&/OR RX | | | | | | | CONT ECG W/O | | | | | | | I&R ID | | | | | | | CARDIAC | | | | | | | STRESS | | | | | | | TST,INTERP/R | | | | | | | EPT ONLY | | | +--------+--------+ + + + + Diagnostic/Screening (Routine) +--------+--------+ + + + + | Status | Reason | Specialty | Diagnoses / | Referred By | Referred To | | | | | Procedures | Contact | Contact | +--------+--------+ + + + + | Closed | | Radiology | Diagnoses | [place], | [facility] | | | | | Coronary | MD Alicia | [address] | | | | | artery | [address] | [place], | | | | | disease | [address] | [place] | | | | | involving | [place], | [address] | | | | | [place] | [place] [address] | Phone: | | | | | coronary | Phone: | [phone] | | | | | artery of | [phone] | Fax: | | | | | [place] heart | Fax: | [phone] | | | | | with angina | [phone] | | | | | | pectoris [...] | | | | | | Complete ID | | | | | | | ECHO HEART | | | | | | | XTHORACIC,CO | | | | | | | MPLETE W | | | | | | | DOPPLER ID | | | | | | | ECHO HEART | | | | | | | XTHORACIC,CO | | | | | | | MPLETE, W/O | | | | | | | DOPPLER | | | +--------+--------+ + + + + Reason for Visit + + + | Reason | Comments | + + + | Follow-up, Office | 6 month, /DE/HTN | | Visit | | + + + | Coronary Artery | | | Disease | | + + + | Atrial Fibrillation | | + + + Encounter Details +--------+---------+ + + + | Date | Type | Department | Care Team | Description | +--------+---------+ + + + | 07/01/ | Office | [facility] [place] | Alicia Gonzáles, | Coronary artery | | 2019 | Visit | CARDIOLOGY [address] | disease, angina | | | | [place], | [place], | presence | | | | [place] [address] | [place] [address] | unspecified, | | | | [phone] | [phone] | unspecified vessel | | | | | | or lesion type, | | | | | | unspecified whether | | | | | | [place] or | | | | | | transplanted heart | | | | | | (Primary Dx); | | | | | | Paroxysmal atrial | | | | | | fibrillation (HCC); | | | | | | Aortic valve | | | | | | stenosis, etiology | | | | | | of cardiac valve | | | | | | disease unspecified; | | | | | | Coronary artery | | | | | | disease involving | | | | | | [place] coronary | | | | | | artery of [place] | | | | | | heart with angina | | | | | | pectoris (HCC); | | | | | | Chest pain, | | | | | | unspecified type | +--------+---------+ + + + Social History [...] + + + | Blood Pressure | 120/60 | 07/01/2018 2:04 PM | | | | | PST | | + + + + + | Pulse | 73 | 07/01/2018 2:04 PM | | | | | PST | | + + + + + | Temperature | - | - | | + + + + + | Respiratory Rate | 18 | 07/01/2018 2:04 PM | | | | | PST | | + + + + + | Oxygen Saturation | - | - | | + + + + + | Inhaled Oxygen | - | - | | | Concentration | | | | + + + + + | Weight | 73.2 kg (161 lb 6 | 07/01/2018 2:04 PM | | | | oz) | PST | | + + + + + | Height | 162.6 cm (5' 4") | 07/01/2018 2:04 PM | | | | | PST | | + + + + + | Body Mass Index | 27.7 | 07/01/2018 2:04 PM | | | | | PST | | + + + + + [...] + + documented as of this encounter Patient Instructions Patient Instructions Annel Mcgraw RN - 07/01/2018 2:30 PM PST Persantine/Lexiscan Roly Date: Check-in Time: Where to Check In: Instructions 1. Nothing to eat or drink anything 6 hours prior to Persantine/Lexiscan 2. DO NOT drink caffeine 12 hours prior to the test. 3. DO NOT take any Isosorbide or Nitro SL the night before or the morning of the test. 4. You can take all other medications the morning of the test with a small sip of water. 5. Please bring a list of your current medications with you. Resting Portion of test: Date: Check-in Time: Where to Check In: Echo: Date: Check-In Time: Where to Check In: Follow up appointment: 4-6 weeks Provider: Date: Check-In Time: documented in this encounter Progress Notes Alicia Gonzáles MD - 07/01/2018 2:30 PM PSTFormatting of this note might be different f rom the original. PATIENT NAME: Le Rollins : 1945: AGE: 73 y.o. PRIMARY CARE: Ole Madden DO OUTPATIENT FOLLOW UP VISIT Date of Service: 07/01/2018 HISTORY OF PRESENT ILLNESS: Le Rollins is a 73 y.o. female with a history ofcoronary artery disease, aortic sten osis, paroxysmal atrial fibrillation, peripheral vascular disease, type II diabetes mellitus , obstructive sleep apnea, hypertension and hyperlipidemia. She is being seen today for foll ow up. She was last seen on 10/08/16 at which time patient was to stop plavix and start on eliquis 5 mg twice daily. Since that time, patient had episodes of chest pain and palpitation. She reports her recent episode was on 06/30/18. Patient took clonazepam to see if that would stop the chest pain and palpitations. Patient recently moved to [facility] home. Today, patient continues to feel mild palpitation, chest pain and shortness of breath. He stated that chest pain usually happens once or twice a week. Chest pain can be associated a t rest and also exertion. She is out of breath easily on any minimal exertion. Patient is physically active by walking around her home. There is no chest pain or chest discomfort bot h at rest and on exertion. Patient denies breathlessness. There is no palpitation dizziness or lightheadedness. There is no ankle or leg swelling. Patient can sleep on one pillow at [facility] without difficulty breathing. MEDICAL, SURGICAL, AND PERSONAL HISTORY Past Medical, [...] ischemic heart disease Coronary artery disease involving [place] coronary artery of [place] heart with angina pe ctoris Cerebral infarction Hyperlipidemia Hypothyroidism Cerebral artery occlusion VHD (valvular heart disease) NEHEMIAH (obstructive sleep apnea) UGI bleed Anastomotic ulcer S/P gastric bypass Acute blood loss anemia Anemia Hepatitis Family history of type II diabetes mellitus Osteoarthritis CURRENT MEDICATIONS Current Outpatient Prescriptions Medication Sig Dispense Refill acetaminophen (TYLENOL) 325 [...] for this visit. ALLERGIES Allergies Allergen Reactions Aripiprazole Bee Venom Clonidine Derivatives Insulin Glargine Insulin Lispro Shellfish-Derived Products Statins Patient could not remember which statin caused her problems. She tolerates atorvastatin f ine ROS Review of Systems Constitutional: Negative for malaise/fatigue. Respiratory: Positive for shortness of breath. Cardiovascular: Positive for chest pain and palpitations. Negative for leg swelling. Neurological: Negative for dizziness and weakness. Lightheaded = No OBJECTIVE: PHYSICAL EXAM BP 120/60 | Pulse 73 | Resp 18 | Ht 1.626 m (5' 4") | Wt 73.2 kg (161 lb 6 oz) | BMI 2 7.70 kg/m Physical Exam Constitutional: She appears well-developed and well-nourished. No distress. Female individual accompanied by , with no acute distress. Neck: Normal carotid pulses, no hepatojugular reflux and no JVD present. Carotid bruit is n ot present. Cardiovascular: Normal rate, regular rhythm, S1 normal, S2 normal, intact distal pulses and normal pulses. PMI is not displaced. Exam reveals no gallop, no S3, no S4 and no friction rub. Murmur heard. Systolic murmur is present with a grade of 2/6 at the upper right sternal border Ejection Pulses: Carotid pulses are 2+ on the right side, and 2+ on the left side. Dorsalis pedis pulses are 2+ on the right side, and 2+ on the left side. Pulmonary/Chest: Effort normal and breath sounds normal. No accessory muscle usage. No resp iratory distress. She has no wheezes. She has no rhonchi. She has no rales. Abdominal: Normal appearance, normal aorta and bowel sounds are normal. She exhibits no abd ominal bruit. There is no hepatosplenomegaly. There is no tenderness. Musculoskeletal: She exhibits edema (bilateral trace leg swelling ). Neurological: She is alert. Gait normal. Skin: Skin is warm and dry. Psychiatric: She has a normal mood and affect. Her mood appears not anxious. She does not e xhibit a depressed mood. LAB RESULTS reviewed during visit today primarily from [facility]: LIPID Lab Results Component Value Date CHOL 151 10/06/2017 TRIG 64 10/06/2017 HDL 86 (H) 10/06/2017 LDL 52 10/06/2017 CHOLHDL 1.8 10/06/2017 CHEMISTRY Lab Results Component Value Date GLU 150 (H) 05/07/2018 NA 139 05/07/2018 K 4.3 05/07/2018 CL 102 05/07/2018 CO2 24 05/07/2018 CALCIUM 8.7 05/07/2018 ALKPHOS 84 05/07/2018 AST 56 (H) 05/07/2018 ALT 49 (H) 05/07/2018 BILITOT 0.7 05/07/2018 CREA 0.81 05/07/2018 BUN 15 05/07/2018 HEMATOLOGY Lab Results Component Value Date WBC 6.2 05/07/2018 HGB 13.3 05/07/2018 HCT 41.2 05/07/2018 PLT 184 05/07/2018 I reviewed records from Ole Madden DO for office visit on 05/17/18. Above data and testing is reviewed this [...] 90% genia nosis of the mid OMB2, there is a right dominatecirculation, normal LV systolic function w ith an EF of 70%, systemic blood pressure is mildly elevated, there was successful hemostasi s with a TR hemostatic band, NSTEMI due to subtotal occlusion of the OMB2. D. Echocardiogram 09/30/2015 shows Sinus rhythm, degenerative [...] NML, est sy stolic PAP 23-28mmHg. Denny Pardo DO E. Today, patient continues to feel mild palpitation, chest pain and shortness o f breath. He stated that chest pain usually happens once or twice a week. Chest pain can b e associated at rest and also exertion. She is out of breath easily on any minimal exertion . Patient is physically active by walking around her [place] There is no signs and symptoms of overt congestive heart failure. She is in a class I of [place] [employer] function al class. There is no fluid retention on physical examination. 2. Aortic stenosis A. CT Angiogram neck [...] hypertension, there i s none/trivial pericardial effusion. Mershed Alsamara. C. She complained of chest pain mentioned in the breath on exertion today. 3. Paroxysmal atrial fibrillation A. 2 week [...] atrial fibrillation with a longest 28 beats Her risks for stroke include: Hx of HTN (1), Stroke/TIA/Thrombo-embolism (2), Va scular disease (1), Age 65 to 74 (1) and Female Gender (1). Her [id number] score is 6, [facility] ch gives an estimated 9.8% risk of stroke per year in atrial fibrillation. Her bleeding ris ks include: HTN (1) and >64 YO (1) . Her HASBLED score is 2-3, which confers an intermed iate risk (4.1-5.8%) risk of bleed per year. Despite a history of recent upper GI bleeding, she does not have active bleeding at this time. She should be on blood thinner. 4. Peripheral vascular disease A. Right side carotid stent 10/18/2015. 4. Hypertension A. Blood pressure in office is within target. 5. Peptic ulcer disease /Syncope/GI bleeding 6. Type II diabetes mellitus; Not addressed today. 7. Obstructive sleep apnea A. Patient uses CPAP machine nightly. 8. History of stroke A. She stated that she has tablet stroke 2 in the past PLAN: 1. Echocardiogram is warranted to assess cardiac structure chest pain and palpitation. 2. Schedule patient for SPECT MPI stress test for chest pain. 3. I recommend a therapeutic lifestyle change including walking 30 minutes a day, choosing healthy choices of diet , including DASH diet, weight reduction and 7 hours of high quality sleep a night. 4. I recommend flu, pneumonia and shingles vaccine. Patient is up to date on vaccines. 5. Follow-up 4-6 weeks. I, Anna Beth, am acting as a scribe on behalf of, and in the presence of Alicia madrid MD. I have reviewed and edited this note. Anna Beth, Hydrometeorological Technician 07/01/2018 I, Alicia Gonzáles MD, personally performed the services described in this documentation, as scribed in my presence and it is both accurate and complete. Anna Beth, Hydrometeorological Technician 07/01/2018 14:10 Electronically signed by: Alicia Gonzáles MD [facility] 07/01/2018 Portions of this chart may have been created with [employer] voice recognition software. Occasi onal wrong-word or sound-alike substitutions may have occurred due to the inherent dhillon itations of voice recognition software. Please read the chart carefully and recognize, using context, where these substitutions have occurred documented in this encounter Plan of Treatment Not on filedocumented as of this encounter Results ECHO Complete (07/15/2018 11:00 [...] | | | | | | n [place] | | | | | + +--------+ [...] | | | + +---------+ + + NM Nuclear Stress Test (Vasodilator) (07/13/2018 1:07 PM PDT) + +--------+ + + + | Component | Value | Ref Range | Performed | Pathologist | | | | | At | Signature | + +--------+ + + + | BASELINE | 69 | bpm | [facility] | | | HEART RATE | | | | | + +--------+ + + + | BASELINE | 145/61 | mmHg | [facility] | | | BLOOD | | | | | | PRESSURE | | | | | + +--------+ + + + | PEAK HEART | 83 | | [facility] | | | RATE | | | | | + +--------+ + + + | PEAK BLOOD | 145/61 | mmHG | [facility] | | | PRESSURE | | | | | + +--------+ + + + | Target HR | 126 | | [facility] | | + +--------+ + + + | Percent HR | 56 | | [facility] | | + +--------+ + + + | LVEF-SPECT | 80 | % | [facility] | | | NUCLEAR | | | | | | STRESS/VIAB | | | | | | ILITY | | | | | + +--------+ + + + | ST | 0.0 | mm | [facility] | | | Elevation | | | | | | (mm) | | | | | + +--------+ + + + + + | Specimen | + + | | + + + + + | Narrative | Performed At | + + + | 1. | [facility] | | Persantine EKG is negative.2. Normal Persantine sestamibi | | | myocardial perfusion imaging study. Normal left ventricular size, | | | wall thickness and motion. Preserved left ventricular systolic | | | function. LVEF by gated SPECT is 80%. | | + + + + +---------+ [...] or lesion | | type, unspecified whether [place] or transplanted heart - Primary | + + | Paroxysmal atrial fibrillation (HCC) Atrial fibrillation | + + | Aortic valve stenosis, etiology of cardiac valve disease unspecified | + + | Coronary artery disease involving [place] coronary artery of [place] heart with angina | | pectoris (HCC) | + + | Chest pain, unspecified type | + + documented in this encounter
--- OUTSIDE RECORDS SUMMARY | ~2020-02-03 | XMS | Encounter Summary ---
Demographics + + + | Address | [address] | | | [place] [address] | + + + | Home Phone | | + + + | Preferred Language | Unknown | + + + | Marital Status | Single | + + + | Episcopalian Affiliation | [id number] | + + + [...] Team Providers + +------+ + | Care Airport Control Operator Name | Role | Phone | [...] Medicine | Parasomnia | Marck Yo | [address] | | | Required | | Procedures | MD [address] | [place] | | | | | [place] POL[place] | [place] | Premier, | | | | | 6/>YRS SLEEP | [facility] | [place] [address] | | | | | 4/> ADDL | [place], [place] | Phone: | | | | | [place] ATTND | [address] | [phone] | | | | | [place] POLYSOM | Phone: | Fax: | | | | | 6/>YRS SLEEP | [phone] | [phone] | | | | | W/CPAP 4/> | Fax: | | | | | | ADDL [place] | [phone] | | | | | | ATTND S/N | | | +--------+ + + + + + Reason for Visit +---------+ + | Reason | Comments | +---------+ + | Consult | | +---------+ + Evaluate & Treat (Routine) +--------+--------+ + + + + | Status | Reason | Specialty | Diagnoses / | Referred By | Referred To | | | | | Procedures | Contact | Contact | +--------+--------+ + + + + | Closed | | Internal | Diagnoses | Riley, | Maykel, | | | | Medicine - | Obstructive | Wilson Ortiz, | Marck Yo | | | | Sleep | sleep apnea | [address] | MD [address] | | | | Medicine / | (adult) | [place] | Kahlil Lofton | | | | Sleep | (pediatric) | [place] | [address] | | | | Medicine | [place] | [place] [address] | [facility] [place] | | | | | [address] | Phone: | [phone] Phone: | | | | | Procedures | [phone] | [phone] | | | | | NEW PATIENT | Fax: | Fax: | | | | | | [phone] | [phone] | +--------+--------+ + + + + Encounter Details +--------+---------+ + + + | Date | Type | Department | Care Team | Description | +--------+---------+ + + + | 07/22/ | Office | [facility] | Marck Brar | NEHEMIAH (obstructive | | 2017 | Visit | SLEEP DISORDER [address] | MD [address] | sleep apnea) | | | | [address] [place] | [address] [place] | (Primary Dx); | | | | [place] [address] | [place] [address] | Parasomnia; | | | | [phone] | [phone] | Cerebrovascular | | | | | | accident (CVA), | | | | | | unspecified | | | | | | mechanism (HCC); | | | | | | ASCVD | | | | | | (arteriosclerotic | | | | | | cardiovascular | | | | | | disease); | | | | | | Fibromyalgia | +--------+---------+ + + + Social History [...] + | Blood Pressure | 122/62 | 07/22/2016 9:52 AM | | | | | PDT | | + + + + + | Pulse | 67 | 07/22/2016 9:52 AM | | | | | PDT | | + + + + + | Temperature | - | - | | + + + + + | Respiratory Rate | 14 | 07/22/2016 9:52 AM | | | | | PDT | | + + + + + | Oxygen Saturation | 97% | 07/22/2016 9:52 AM | | | | | PDT | | + + + + + | Inhaled Oxygen | - | - | | | Concentration | | | | + + + + + | Weight | 71.9 kg (158 lb 8 | 07/22/2016 9:52 AM | | | | oz) | PDT | | + + + + + | Height | 163.8 cm (5' 4.5") | 07/22/2016 9:52 AM | | | | | PDT | | + + + + + | Body Mass Index | 26.79 | 07/22/2016 9:52 AM | | | | | PDT [...] of this encounter Patient Instructions Patient Instructions Marck Brar Jr., MD - 07/22/2016 10:40 AM PDT What is a Sleep Study? Do you often have problems sleeping? Do you feel tired most days of the week? Talk to your healthcare provider or a sleep specialist. He or she may suggest that you have a sleep study . It can help diagnose a sleep disorder such as sleep apnea or narcolepsy. During the study, a special machine is used to monitor your sleep. Who needs a sleep study? If you have sleep problems that last longer than a few weeks, you may need a sleep study. T alk to your healthcare provider. Be prepared to answer questions about your health history. Try to keep a daily sleep diary for a week or 2. Write down the time you go to bed, the time you wake up, and anything that seems to affect your sleep. Then your healthcare provider ca n refer you to a sleep specialist and recommend a sleep study. Monitoring your sleep Your sleep can be monitored at a sleep clinic or at your home. In either case, your healthc are provider will discuss the results with you [...] So metimes you may be asked to remain at the lab the next day for a daytime nap study. At home. [...] In the morning, you return the computer. Date Last Reviewed: 12/02/201419999230-2916 [employer]. [address] [place] [id number]. All righ ts reserved. This information is not intended as a substitute for professional medical care. Always follow your healthcare professional's instructions. documented in this encounter Progress Notes Marck Brar Jr., MD - 07/22/2016 10:06 AM PDTFormatting of this note might be differen t from the original. [facility] [place] [address] Ref: Wilson Lin MD CC: Chief Complaint Patient presents with Consult History of the Present Illness:This is a 8-year-old female referred for sleep medicine cons ultation by Dr. Wilson Lin because of concerns about recurrent obstructive sleep apnea . She had a right total knee replacement in June of 2015 In July 2015 she was hospitalized with myocardial infarction with stenting. In September of 2015 she had a stroke with left sided weakness and dysphagia. Right carotid artery stenting was done after this. The patient was diagnosed with severe obstructive sleep apnea on polysomnography using a split-night techniq ue done at [facility] in [place] on November 17, 2011. This demonstrated a pretre atment Apnea Hypopnea Index of 93.5 with a karan oxygen saturation of 82%. She was treated with CPAP 13 cm. Since then she underwent gastric bypass surgery in [place] and lost approxim ately 80 pounds. I first saw her in consultation for Dr. Ole Madden January 17, 2015. Diagnostic nocturnal polysomnography performed on February 18, 2015 in our sleep center dem onstrated a latency to sleep onset was normal at 9.5 minutes. The sleep efficiency was low at 73.6% (407.5 minutes of sleep out of 553.5 minutes of study time the respiratory disturba nce index was 21.9. The Apnea Hypopnea Index was mildly elevated at 11.2. Significant oxyg en desaturation didn't occur. The patient was thus found to have mild obstructive sleep apnea. Treatment of mild sleep a pnea is aimed primarily at improving quality of life. For obstructive sleep apnea and is si gnificantly increased risk of myocardial infarction and atherosclerotic events most studies suggest that the Apnea Hypopnea Index has to be 30 or higher. At this time the patient elec ozzy not to be treated with CPAP. Her weight has been stable over the last 2 years. Bedtime is about 10:30-11pm and rise time is about 7 am. She estimates a latency to sleep o nset of about 60 minutes. She has nocturia once at night and she gets back to sleep easily. She denies night sweats. She denies nocturnal heartburn. She frequently does awaken with a d ry mouth and nasal/sinus congestion. She rarely has morning headaches. She dreams in her sleep. She denies hypnagogic hallucinations. She does yell in her sleep a nd she moves in her sleep. She tosses and turns a lot and she can swing her arms in her slee p. She thinks she is dreaming when this occurs but she isn't sure. Her grandkids stay with h er and have commented to her that she can yell and flail her arms about in her sleep. She draper s had rare episodes of sleep paralysis - most recently about a month ago. She denies restlessness in her legs at night but she does have leg cramps frequently. Her grandkids tell her that she makes "funny" noises breathing as she sleeps. They often aw aken her because of this. She can awaken herself gasping and choking but she attributes this to post-nasal drip. This has all worsened since the stroke. She also drools more at night s cade the stroke. In the daytime she feels fatigued and tired. She can fall asleep if she sits down and she c an inadvertently stay asleep for about an hour. She doesn't fall asleep driving. She denies cataplexy. She consumes caffeine containing energy drink about 12 ounces a day. Past Medical History: has a past medical history of Numbness and tingling in right hand (1 ); DDD (degenerative disc disease), cervical (02/08/2012); NEHEMIAH (obstructive sleep a pnea); Obesity; Hypertension; Diabetes type 2, controlled ([facility]); Asthma; Stroke ([facility]); Murmu r, cardiac; Myocardial infarction ([facility]) (07/2015); CVA (cerebral vascular accident) ([facility]) (2015); and Fibromyalgia. has past surgical history that includes Tonsillectomy and adenoidectomy (1950); Appendecto my (1958); Hysterectomy, total abdominal (1972); Cholecystectomy (1988); right knee arthrosc opy (1989); Uvulopalatopharygoplasty (1987); Thyroidectomy, partial (1984); Thyroidectomy (); Gastric bypass surgery (2011); Total knee arthroplasty (Right, 07/16/2015); Cardiac cat heterization (N/A, 07/27/2015); and right carotid stent (10/09). Allergies Allergen Reactions Aripiprazole Bee Venom Clonidine Derivatives Insulin Glargine Insulin Lispro Pioglitazone Hydrochloride Shellfish-Derived Products Statins Current Outpatient Prescriptions Medication Sig Dispense Refill acetaminophen (TYLENOL) 325 mg tablet Take 2 tablets by mouth every 6 hours as needed f or Pain. 100 tablet amLODIPine (NORVASC) 2.5 mg tablet Take 2.5 mg by mouth Daily. aspirin 325 mg tablet Take 81 mg by mouth Daily. 1 pill daily 56 tablet 0 atorvaSTATin (LIPITOR) 80 MG tablet Take 80 mg by mouth nightly. biotin 5 mg tablet Take 5 mg by mouth Daily. busPIRone (BUSPAR) 5 mg tablet Take 5 mg by mouth 2 times daily. calcium citrate-vitamin D (CALCIUM + D) 315 mg-200 units per tablet Take 1 tablet by mo ut 2 times daily. Cholecalciferol (VITAMIN D3) 53769 units TABS Take 50,000 Units by mouth Once a week. clopidogrel (PLAVIX) 75 mg tablet Take 1 tablet by mouth Daily. 100 tablet 0 cyanocobalamin (VITAMIN B-12) 1000 MCG tablet Take 1,000 mcg by mouth Daily. DULoxetine (CYMBALTA) [address] capsule Take 60 mg by mouth Daily. EPINEPHrine (EPIPEN) 0.3 mg/0.3 mL injection Inject 0.3 mg into the muscle as needed fo r Anaphylaxis. isosorbide mononitrate (IMDUR) 30 mg ER tablet Take 1 tablet by mouth Daily. 30 tablet 0 levothyroxine (SYNTHROID, LEVOTHROID) 150 mcg tablet Take 137 mcg by mouth every mornin g (before breakfast). lisinopril-hydrochlorothiazide (PRINZIDE,ZESTORETIC) 20-25 MG per tablet Take 1 tablet by mouth Daily. Magnesium 200 MG TABS Take by mouth. metFORMIN (GLUCOPHAGE) 500 mg tablet 1 pill twice daily starting on 07/29/2015 60 tablet 0 Multiple Vitamins-Minerals (MULTIVITAMIN PO) Take by mouth. nitroglycerin (NITROSTAT) 0.[address] 1 tablet under the tongue every 5 thaddeus soledad as needed for Chest pain. 25 tablet 0 No current facility-administered medications for this visit. Past Surgical History Procedure Laterality Date Tonsillectomy and adenoidectomy 1950 Appendectomy 1958 Hysterectomy, total abdominal 1973 Cholecystectomy 1988 Right knee arthroscopy 1989 Uvulopalatopharygoplasty 1987 Thyroidectomy, partial 1985 Thyroidectomy 2004 Gastric bypass surgery 2012 Total knee arthroplasty Right 07/16/2015 Procedure: Right Total Knee Arthroplasty; Surgeon: Jordin Fernandez MD; Location: [facility] Cardiac catherization N/A 07/27/2015 Procedure: CV DIAGNOSTIC CARDIAC CATH; Surgeon: Иван Kaur MD; Location: [facility] Right carotid stent 10/09 Family Medical History: family history includes Diabetes in her brother; Heart disease in h er brother and father; Other (see comment) in her son. indicated that her mother is . She indicated that her father is . She indic ated that both of her brothers are alive. She indicated that only one of her two sons is ali ve. 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 Eyes:Denies sudden loss of vision, diplopia, blurred vision. Trouble tracking with left e ye from CVA now improving. ENT: Denies vertigo, bleeding gums or poor dental repair. Has loss of hearing. Frequent p ost-nasal drip. Card:Denies exertional substernal chest heaviness. Resp: Coughs from post-nasal drip. Some shortness of breath from post-nasal drip. GI: Denies nausea, vomiting, abdominal pain, diarrhea, hematochezia. Rare constipation. : Denies dysuria, pyuria, hematuria, frequency, incontinence MS: Fibromyalgia and DJD extensively Neuro: Recovering from recent CVA (Left weakness, dysphagia, mild dysarthria). Psych: Some depression/anxiety since CVA especially. Endocrine: Denies heat or cold intolerance Heme: Denies easy bruising or prolonged bleeding. Allergic/Immunologic: Has seasonal allergies PE: BP 122/62 mmHg | Pulse 67 | Resp 14 | Ht 1.638 m (5' 4.5") | Wt 71.895 kg (158 lb 8 oz) | BMI 26.80 kg/m2 | SpO2 97% Gen: not in acute distress HEENT:Head: Normocephalic, no lesions, without obvious abnormality. Eye: Normal external eye, conjunctiva, lids cornea, ATA. Nose: Normal external nose, mucus membranes and septum. Pharynx: Dental Hygiene adequate. Normal buccal mucosa. Mallampati 2. Pulm: lungs clear to auscultation Card: S1, S2 wnl. 2/6 YUSRA aortic area. No S3, S4. Rate normal. Rhythm regular GI: soft and normal bowel sounds : Not examined Rectal: Not Examined Ext: peripheral pulses normal, no pedal edema, no clubbing or cyanosis Skin:no rashes Neuro:Oriented x 3. Mild dysarthria. Motor normal bilaterally. Gait normal. A more thoroug h neuro exam was not performed. Psych:age appropriate and casually dressedoriented to time, place and person, mood and aff ect are within normal limits, pt is a good historian; no memory problems were noted Heme: No cervical LN Questionnaires Review: The score of 13 on the Maybee Sleepiness scale suggests significant excessive daytime sleepiness. The score of 17 on the Insomnia Severity Scale suggests that the patient has moderate dissatisfaction with the quality of sleep. The score of 19 on the B abdiel Depression Inventory is consistent with mild depression. The score of 24 on the Ponce Anx iety Inventory suggests moderate recognized anxiety. The SF36v2 suggests moderate self asses sed impairment in subscales physical function, body pain; mild self assessed impairment in s ubscales role physical, vitality, social function, role emotional, mental health; no self as sessed impairment in subscale general health. She scores approximately a half of a standard deviation below the mean on the physical component scale and slightly below the mean on the mental component scale. STUDY DATE: 07/26/2015 PATIENT NAME: Le Rollins : 1945 PCP: Ole Madden DO CLINICAL HISTORY/DIAGNOSIS: MURMUR, ELEVATED TROPONIN A transthoracic echocardiogram with M-mode, pulsed-wave and color Doppler was performed wit h standard views obtained. The technical quality of this examination is adequate. The he art rhythm during the echo is normal with heart rate in the 70s. The M-mode, two-dimension al, color flow and spectral Doppler data were reviewed and support the following interpretat ion: Interpretation: Left Atrium: Left atrial size is normal. Left ventricle: Left ventricular size is normal with normal wall thickness and motion, and normal left ventricular systolic function. The estimated ejection fraction is 70%. Grad e 1 left ventricular diastolic dysfunction. Aortic root: Aortic root is normal. Right Atrium: Right atrial sizes normal. Right ventricle: Right ventricular size is normal with normal wall thickness and normal ri ght ventricular systolic function. Pericardium: Pericardium is normal. Pulmonary artery: Pulmonary artery is normal. Aortic valve: Physical mildly sclerotic probable trileaflet valve with mild to moderate genia nosis and mild insufficiency. Peak velocities measured at 3 m/s with mean/peak gradients o f 21/36 mmHg respectively. Mitral valve: Mitral valve is normal. Pulmonic valve: Pulmonic valve is normal. Tricuspid valve: Normal with mild insufficiency and peak velocity consistent with RVSP 41-4 6 mmHg. Vena cava: The inferior vena cava is normal. There is greater than 50% inspiratory colla pse of the IVC. IMPRESSIONS: 1. Normal LV size and systolic function with LVEF 70%. 2. Aortic valve sclerosis with mild to moderate stenosis and mild insufficiency. 3. Mild pulmonary systolic hypertension. 4. Compared to patient's prior study of one year ago, no significant changes are noted. Measurements: Height: 65 Weight: 160 Aortic root: 29 mm Aortic cusp sep: 4 mm LA: 27 mm IVS-diastole: 9 mm IVS-systole: 10 mm LVPW diastole: 10 mm LVPW systole: 13 mm LV diameter-diastole: 41 mm LV diameter-systole: 33 mm Fractional shortenin % PFV aortic valve: 3.01 m/s MPG mitral valve: mmHg PFV TR jet: 3.01 m/s RA/RV PP mmHg LA volume: 33 mL LA index: 19 mL/m2 Mitral Inflow DT: 425 ms IVRT: 128 ms Valsalva: Not needed PWDTI S wave: 7.5 cm/s PWDTI E wave: 6.4 cm/s PWDTI A wave: 10.6 cm/s E/A Ratio: 0.604 E/E Ratio: 10.56 Signed by: Macy Muro MD PhD FACC 07/26/2015 20:21 Assessment: NEHEMIAH: When tested 2 years ago the patient had relatively mild obstructive sleep apnea. Most epidemiologic studies show the for obstructive apnea be associated causally wit h increased risk of atherosclerosis or stroke requires an Apnea Hypopnea Index of 30 or more . Typically when an Apnea Hypopnea Index is less than this especially the absence of oxygen desaturation treatment is geared at improving symptoms. However in view of the events of l ast year (knee replacement followed by myocardial infarction followed by stroke) I do think that repeat polysomnography is warranted. The patient is in agreement with this. She is ma krysta noises when she sleeps (reported to her by her grandchildren); she is having much worse postnasal drip; and she has awakened herself gasping. Her weight has been stable since 201 5. I have reviewed the pathophysiology of obstructive sleep apnea with her. She started qu ite familiar with this. I am suggesting polysomnography be done in the near future and she is in agreement with this. There is also some data in the literature that stroke itself can actually cause obstructive sleep apnea. Cortical strokes typically are not associated with central sleep apnea although brainstem strokes can be. In any event polysomnography stiffl y warranted. Parasomnias: It sounds like she might also be having some dream enactment. This can be s een in the context of REM sleep fragmentation occasioned by obstructive apnea or ache could represent REM sleep behavior disorder absent apnea. This would be another indication for po lysomnography. Myocardial infarction: It sounds that she is recovering from this. Echocardiography done during the stroke in July 2015 shows a normal ejection fraction. It also demonstrated mil d aortic sclerosis which probably is responsible for the heart murmur. Right parietal CVA: She is improving nicely from this. Type II diabetes: If moderate least severe or severe obstructive sleep apnea is found tonja ating it can improve diabetic control. Plan: Diagnostic nocturnal polysomnography using a strict split-night technique has been sc heduled for the near future with follow-up thereafter. imon, Marck Yo Jr., MD - 07/22/2016 9:42 AM PDTFormatting of this note might be different from the origin al. 07/22/16 0900 Ponce Depression Inventory-II Depression Score 19 - Mild depression Insomnia Severity Index Insomnia Severity Index 17 Maybee Sleepiness Scale Sitting and reading 2 Watching TV 2 Sitting, inactive in a public place (e.g. a theatre or a meeting) 1 As a passenger in a car for an hour without a break 2 Lying down to rest in the afternoon when circumstances permit 3 Sitting and talking to someone 1 Sitting quietly after a lunch without alcohol 2 In a car, while stopped for a few minutes in traffic 0 Total score 13 SF-36v2 Score PF 42.23 RP 48.17 BP 42.24 GH 53.19 VT 46.66 SF 47.31 RE 45.72 MH 45.64 PCS 46.1 MCS 47.23 documented in th is encounter Plan of Treatment + + +--------+ + + | Name | Type | Priori | Associated Diagnoses | Order Schedule | | | | ty | | | + + +--------+ + + | Ambulatory Referral | Outpatient | Routin | Parasomnia | Ordered: 07/22/2016 | | to Sleep Studies | Referral | e | | | + + +--------+ + + documented as of this encounter Visit Diagnoses + + | Diagnosis | + + | NEHEMIAH (obstructive sleep apnea) - Primary Obstructive sleep apnea (adult) (pediatric) | + + | Parasomnia Other dysfunctions of sleep stages or arousal from sleep | + + | Cerebrovascular accident (CVA), unspecified mechanism (HCC) | + + | ASCVD (arteriosclerotic cardiovascular disease) Unspecified cardiovascular disease | + + | Fibromyalgia Mylagia and myositis, unspecified | + + documented in this encounter
--- OUTSIDE RECORDS SUMMARY | ~2020-02-03 | XMS | Encounter Summary ---
Demographics + + + | Address | [address] | | | [place] [address] | + + + | Home Phone | | + + + | Preferred Language | Unknown | + + + | Marital Status | Single | + + + | Jehovah'S Witness Affiliation | 1013 | + + + | Race | White | + + + | Ethnic Group | Not or | + + + Author + + + | Author | [facility] | | | and [place] | + + + | Organization | [facility] | | | [...] Team Providers + +------+ + | Care Group Home Manager Name | Role | Phone | + +------+ + | Ole Madden DO | PCP | | + +------+ + Encounter Details +--------+---------+ + + + | Date | Type | Department | Care Team | Description | +--------+---------+ + + + | 07/26/ | Surgery | [facility] ALEXANDR[facility] | [place]é Kaur, | CV DIAGNOSTIC | | 2016 | | MED CTR CV INTRA OP | Иван Yo MD [id number] | CARDIAC CATH | | | | [address] | [address] | | | | | [place] | [place] [address] | | | | | [address] | [phone] | | | | | [phone] | | | +--------+---------+ + + + [...] + + + | Blood Pressure | 162/74 | 07/27/2015 10:58 AM | | | | | PDT | | + + + + + | Pulse | 75 | 07/27/2015 10:58 AM | | | | | PDT | | + + + + + | Temperature | 36.3 C (97.3 F) | 07/27/2015 7:31 AM | | | | | PDT | | + + + + + | Respiratory Rate | 15 | 07/27/2015 10:58 AM | | | | | PDT | | + + + + + | Oxygen Saturation | 100% | 07/27/2015 10:58 AM | | | | | PDT | | + + + + + | Inhaled Oxygen | - | - | | | Concentration | | | | + + + + + | Weight | 71.4 kg (157 lb 6.5 | 07/27/2015 5:28 AM | | | | oz) | PDT | | + + + + + | Height | 165.1 cm (5' 5") | 07/26/2015 3:06 PM | | | | | PDT | | + + + + + | Body Mass Index | 26.56 | 07/26/2015 3:06 PM | | | | | PDT [...] documented as of this encounter Discharge Summaries Aidan Hernandez MD - 07/28/2015 9:57 AM PDT [facility] DISCHARGE SUMMARY Pt. Name/Age/: Le Rollins 70 y.o. 1945 Date of Admission: 07/26/2015 Date of Discharge: 07/28/2015 Admitting Physician: Lori Saba MD Primary Care Provider: Ole Madden DO Discharging Physician: Aidan Hernandez MD DISCHARGE DIAGNOSES: 1. NSTEMI, status post PCI 07/27/2015 2. Moderate aortic valve stenosis 3. Type II diabetes, metformin treated with patient receiving IV contrast on 07/25 and 07/26. 4. Essential hypertension 5. Degenerative arthritis, status post right total knee arthroplasty, 07/16/2015 6. History of obstructive sleep apnea, status post uvulopalatopharyngoplasty 7. History of gastric bypass surgery, 2011 DISCHARGE MEDICATIONS: Discharge Medications New Medications Details acetaminophen 325 mg tablet Take 2 tablets by mouth every 6 hours as needed for Pain. aka: TYLENOL clopidogrel 75 mg tablet Take 1 tablet by mouth Daily. aka: PLAVIX HYDROcodone-acetaminophen 5-325 mg per tablet Replaces: HYDROcodone-acetaminophen 7.5-325 mg per tablet Take 1-2 tablets by mouth every 4 hours as needed for Pain. aka: NORCO lisinopril 10 mg tablet Take 1 tablet by mouth Daily. aka: PRINIVIL, ZESTRIL LORazepam 0.5 mg tablet Take 1 tablet by mouth nightly as needed for Insomnia. aka: ATIVAN metoprolol tartrate 25 mg tablet Take 0.5 tablets by mouth 2 times daily. aka: LOPRESSOR nitroglycerin 0.[address] 1 tablet under the tongue every 5 minutes as needed for Chest pain. aka: NITROSTAT polyethylene glycol packet Take 1 diluted packet by mouth Daily as needed. aka: MIRALAX Changed Medications Details aspirin 325 mg tablet 1 pill daily What changed: - how much to take - how to take this - when to take this - additional instructions metFORMIN 500 mg tablet 1 pill twice daily starting on 07/29/2015 What changed: - how much to take - how to take this - when to take this - additional instructions aka: GLUCOPHAGE Unchanged Medications Details amLODIPine 2.5 mg tablet Take 2.5 mg by mouth Daily. aka: NORVASC CALCIUM + D 315 mg-200 units per tablet Generic drug: calcium citrate-vitamin D Take 1 tablet by mouth 2 times daily. cyanocobalamin 1000 MCG tablet Take 1,000 mcg by mouth Daily. aka: VITAMIN B-12 diphenhydrAMINE 25 mg tablet Take 25 mg by mouth every 6 hours as needed for Itching. aka: BENADRYL DULoxetine [address] capsule Take 60 mg by mouth Daily. aka: CYMBALTA EPINEPHrine 0.3 mg/0.3 mL injection Inject 0.3 mg into the muscle as needed for Anaphylaxis. aka: EPIPEN levothyroxine 150 mcg tablet Take 150 mcg by mouth every morning (before breakfast). aka: SYNTHROID, LEVOTHROID Magnesium 200 MG Tabs Take by mouth. MULTIVITAMIN PO Take by mouth. omeprazole 20 mg capsule Take 20 mg by mouth 2 times daily. aka: priLOSEC Discontinued Medications HYDROcodone-acetaminophen 7.5-325 mg per tablet aka: NORCO Replaced by: HYDROcodone-acetaminophen 5-325 mg per tablet lisinopril-hydrochlorothiazide 20-25 MG per tablet aka: CRYSTALZESTORETIC DISCHARGE INSTRUCTIONS: Follow-up Information Follow up with Maryan Velasquez MD. Specialty: Cardiology Why: call office wednesday for follow up in approximately 2 weeks Contact information: [address] [facility] [address] RESULTS: Show images for CV Adult Cardiac Cath Diag/PCI Visit Information Location Encounter # 07/26/2015 14:55 [facility] [id number] 07/27/2015 13:45 - Иван Kaur MD Narrative & Impression CARDIAC CATHETERIZATION and CORONARY ANGIOGRAPHY PATIENT NAME/:Le Rollins, ([birth year] 47) DATE OF PROCEDURE:07/27/2015 STEM CLEANING MACHINE FEEDER:Иван Cruz MD PROCEDURES PERFORMED: Coronary Angiography Left Heart Catheterization Left Ventriculography FFR to the mid RCA Percutaneous coronary intervention to the mid OMB2 with a 2.5x12 mm IGNACIA. INDICATIONS: Done during a non-ST elevation myocardial infarction DESCRIPTION OF PROCEDURE: Informed consent was obtained from the patient, and a time-out was performed to verify the patient's identification and planned procedure. The patient's right wrist was then prepped and draped in the usual sterile fashion, and anesthetized with 2 mL of buffered 1% lidocain e. For arterial access modified Seldinger technique was used to place a 6 Fr. sheath in th e right radial artery (a normal Merrill's test was performed prior to the procedure). Right heart catheterization was not performed on this patient. After crossing the aortic valve, left ventriculography was not performed. Selective coronary angiogram was then performed i n several sagittal and oblique projections. TIG 4 diagnostic catheters were used for this pr ocedure. The patient received a total of 1 mg of Versed and 50 mcg of fentanyl intravenous ly for conscious sedation during the procedure. A total of 180 mL Omnipaque 350 contrast was utilized. The procedure had no immediate complications. At the conclusion of the procedure, the sheath was removed and hemostasis obtained with a T R hemostatic band. FINDINGS: Hemodynamics: Ao - 173/60 mm Hg with a mean of 86 mm Hg LV - 173/13 mm Hg LVEDP 13mm Hg Left ventriculography: Not performed. Left main artery: The left main artery is a medium caliber vessel that bifurcates into th e left anterior descending artery and left circumflex artery. Left main artery has is free of disease. Left anterior descending artery: The left anterior descending artery is a large caliber v essel that wraps around the apex and gives rise to 2 diagonal branches. The vessel has mod erate diffuse plaquing with 40 % tubular stenosis on its mid segment. It gives rise to 2 d iagonal branches that have normal appearence. Left circumflex artery: The left circumflex artery is a large caliber vessel that is non dominant. The vessel has mild diffuse disease with 2 large OMB branches, OMB2 has 90% st enosis on its mid segment . It gives rise to 2 obtuse marginal branches that have mild dis ease except for the OMB 2 that has 90% stenosis on its mid segment which is responsible for presentation.. Right coronary artery: The right coronary artery is a medium caliber vessel that is domin ant. The vessel has moderate diffuse plaquing with 50% stenosis on its mid segment , lar rachel arrington lbranmckayla has 90% stenosis on its mid segment.. It gives rise to a PDA and small PL branches. CONCLUSIONS: 1. Moderate obstructive coronary artery disease with 90% stenosi of the mid OMB2 2. There is a right dominate circulation. 3. Normal LV systolic function with an EF of 70% 4. Systemic blood pressure is mildly elevated. 5. There was successful hemostasis with a TR hemostatic band. 6. NSTEMI due to subtotal occlusion of the OMB2. PLAN: 1. Coronary revascularization with PCI. 2. FFR to the mid RCA. PROCEDURE #2 PROCEDURES: 1- PCI to the OMB2 2- FFR to the mid RCA. PROCEDURE: Once decision to perform percutaneous coronary intervention was made, we obtained an ACT, and proceeded to administer 70 units per kilogram of heparin IV, minimally exchanged TIG4 c atheter for 6 fr LBU 3.0 guide catheter, properly flushed, and proceeded to perform select justin cannulation of the LCA, obtain initial angiogram and use a BMW wire to cross lesion in t he predilated condition with a 2.5 x12 mm SQ balloon, at 8 ATMs with excellent results, then the use of 2.5 x 12 Promus deployed at 12 ATMs without any complications, the administer 10 0 g of nitroglycerin intracoronary, perform final angiograms which come from excellent genia nt expansion no edge dissections nor perforations, at this point we removed the wire and cat heter was exchanged over a wire and used a 6 [place] [employer] JR4 guide catheter and perform selective cannulation of the RCA use a pressure wire which was zeroed and normalized prior to get bas haydee pressure ratio and then used to cross the lesion and baseline pressure ratio was 0.95, then we'll start of the adenosine infusion at 140 mcg/kg/min for 2 minutes we obtained FFR which was 0.86 at this point we will stopped adenosine, perform angiogram which confirmed no dissections or complications, with normal wall catheters and wires and flushed sheath and a dminister 200 g of nitroglycerin and 100 g of Cardene then proceeded to remove TR band, patent hemostasis was verified. CONCLUSIONS: 1- non-ST elevation myocardial infarction secondary to subtotal occlusion of the OMB 2 stat us post precipitous coronary intervention with a 2.5 12 mm PROMUS IGNACIA. 2- negative FFR to the mid RCA.with an FFR: 0.86 3- nonobstructive coronary artery disease in the LAD territory. Recommendations: -Continue dual antiplatelet therapy. - Statins. - Transferred to the ICU. - I recommend to add IMDUR to management residual CAD in a acute marginal branch from RCA. 07/27/2015 13:17 - Aleksandr Juan Muro MD Narrative & Impression [facility] ECHOCARDIOGRAM REPORT STUDY DATE: 07/26/2015 PATIENT NAME: Le Rollins [...] Macy Muro MD PhD FACC 07/26/2015 20:21 HOSPITAL COURSE: Please refer to the H&P for full details. In short this 70-year-old female presented with chest pain radiating into her left arm and neck and was evaluated at [facility] emergency room with a recent history of right total knee arthroplasty undergoing a chest CT angiogram to rule out pulmonary embolism. This study was negative for PE and the patient by history also had a lower extremity venous ultrasound negative for DVT. She had coronary calcificati ons and because of persistent pain was referred here or further cardiac assessment. She had negative troponins at 8 AM and 11:30 AM at [facility] and on arrival here had an initial positive troponin of 1.08 at 5:15 PM rising overnight to a maximum of 1.57. She was seen i n consultation by interventional cardiology and on 07/26 underwent coronary angiography which showed 90% stenosis of a obtuse marginal branch which was thought to be causing patient's pa in and troponin elevation. The patient subsequently underwent PCI to this vessel successful ly. Troponin progressively improved and she was pain-free. She was followed by felicita rodriguez here and her family requested that she be transferred to [facility] for further sk illed therapies and recovery from her total knee arthroplasty. The patient had been given a spirin 325 mg twice daily for DVT prophylaxis associated with her total knee replacement per Dr. Fernandez's recommendations. I reduced her dose to 325 mg once daily with the addition of clopidogrel 75 mg daily. The patient will need to be on clopidogrel for one year and on ch ronic aspirin therapy following PCI. She should see Dr. Maryan Velasquez in cardiology follow- up in approximately 2 weeks following discharge. The patient's antihypertensive regimen smita or to admission was Zestoretic, 20/, one daily and amlodipine 2.5 mg daily. Per cardiolog y recommendation she was started on metoprolol 12.5 mg twice daily, continued on amlodipine 2.5 mg daily and at the time of discharge I'm going to reinitiate lisinopril holding the thi azide diuretic at 10 mg daily given her history of diabetes with recommendation of this dose be increased as tolerated. The patient had a LDL cholesterol of 108 and I recommended to h er that she strongly consider a statin. She is going to discuss this with her new PCP Dr. Michael naavrro noting she has had trouble with statins in the past. I did advise her she could try coenzyme Q 10 to minimize muscle aches associated with statins and use a low-dose statin. I did advise her that this therapy has been shown to reduce recurrence rate and my recommen dation be that her LDL cholesterol be maintained less than 70. PHYSICAL EXAM: Temp: 37.2 C (99 F), Pulse: 74, Resp: 19, BP: 143/57 mmHg, SpO2 97 % on room air at yeyo w rate L/min Temp Min: 35.9 C (96.6 F) Max: 37.2 C (99 F) Weight: 72.576 kg (160 lb) Patient seen and examined by me on discharge day Greater than 30 minutes were spent on discharge and coordination of post-hospital care. Electronically signed by: Aidan Hernandez MD, 07/28/2015 9:57 [facility] Portions of this chart may have been created with [employer] voice recognition software. Occasi onal wrong-word or sound-alike substitutions may have occurred due to the inherent dhillon itations of voice recognition software. Please read the chart carefully and recognize, using context, where these substitutions have occurred documented in this encounter Medications at Time [...] documented as of this encounter Progress Notes Tanya King RN - 07/28/2015 12:55 PM PDTDischarge instructions and medications rev iewed with patient. Discharge plans include admission to [facility] in [place] for rehab services. Report called to RN at [facility]. Иван Daley MD - 07/28/2015 9:03 AM PDTKameron ward of this note might be different from the original. PATIENT NAME: Le Rollins : 1945: AGE: 70 y.o. PRIMARY CARE: Ole Madden DO ICU FOLLOW UP VISIT Date of Service: 07/28/15 HISTORY OF PRESENT ILLNESS: Le Rollins is a 70 y.o. female transferred from [facility] with NSTEMI S/P PCI to the [facility] with a 2.5x12 mm IGNACIA. Doing well, denies chest pain, nor palpitations. MEDICAL, SURGICAL, AND PERSONAL HISTORY Past Medical, Surgical, Family, and Social History are reviewed in EPIC. CURRENT PROBLEMS Patient Active Problem List Diagnosis Numbness and tingling in right hand DDD (degenerative disc disease), cervical Rotator cuff tear, right NEHEMIAH (obstructive sleep apnea) Obesity Hypertension Diabetes type 2, controlled Asthma Murmur, cardiac Chest pain Coronary artery calcification seen on CAT scan CURRENT MEDICATIONS Current Facility-Administered Medications Medication Dose Route Frequency Provider Last Rate Last Dose acetaminophen (TYLENOL) tablet 650 mg 650 mg Oral Q6H PRN Magdi Virk DO 650 m g at 07/27/15 1614 amLODIPine (NORVASC) tablet 2.5 mg 2.5 mg Oral Daily Lori Saba MD 2.5 mg at 0 07/27/15 0841 aspirin chewable tablet 81 mg 81 mg Oral Daily Иван Kaur MD clopidogrel (PLAVIX) tablet 75 mg 75 mg Oral Daily Иван Kaur MD 75 m g at 07/27/15 1154 dextrose 50% injection 12.5 g 12.5 g Intravenous PRN Lori Saba MD diphenhydrAMINE (BENADRYL) tablet 25 mg 25 mg Oral Q6H PRN Lori Saba MD DULoxetine (CYMBALTA) DR capsule 60 mg 60 mg Oral Daily Lori Saba MD 60 mg at 07/27/15 0840 HYDROcodone-acetaminophen (NORCO) 5-325 mg per tablet 1-2 tablet 1-2 tablet Oral Q4H P RN Lori Saba MD 2 tablet at 07/28/15 0459 levothyroxine (SYNTHROID, LEVOTHROID) tablet 150 mcg 150 mcg Oral QAM AC Lori Mckay ch, MD 150 mcg at 07/28/15 0825 lidocaine 1%-EPINEPHrine 1:100,000 injection 5 mL 5 mL Infiltration Once PRN Иван Kaur MD LORazepam (ATIVAN) tablet 0.5 mg 0.5 mg Oral Nightly PRN Lori Saba MD metoprolol tartrate (LOPRESSOR) tablet 12.5 mg 12.5 mg Oral BID Иван rodríguez MD 12.5 mg at 07/27/15 2030 nitroglycerin (NITROSTAT) SL tablet 0.4 mg 0.4 mg Sublingual Q5 Min PRN Иван Kaur MD nitroglycerin (NITROSTAT) SL tablet 0.4 mg 0.4 mg Sublingual Q5 Min PRN Lori mckinley MD polyethylene glycol (MIRALAX) powder 17 g 17 g Oral Daily PRN Lori Saba MD sodium chloride 0.9% (NS) infusion Intravenous Continuous Lori Saba MD 75 mL/h r at 07/27/152039 ALLERGIES Allergies Allergen Reactions Aripiprazole Bee Venom Clonidine Derivatives Insulin Glargine Insulin Lispro (Human) Pioglitazone Hydrochloride Shellfish-Derived Products Statins ROS: - Denies chest pain, nor palpitations nor syncope. OBJECTIVE: PHYSICAL EXAM PHYSICAL EXAM Latest VS: BP 143/57 mmHg | Pulse 74 | Temp(Src) 37.2 C (99 F) (Oral) | Resp 19 | Ht 1 .651 m (5' 5") | Wt 72.4 kg (159 lb 9.8 oz) | BMI 26.56 kg/m2 | SpO2 97% Vital sign ranges for last 24hrs: Input and output for last 24hrs: Temp: [35.9 C (96.6 F)-37.2 C (99 F)] 37.2 C (99 F) Pulse: [65-86] 74 Resp: [11-25] 19 BP: (94-173)/(50-82) 143/57 mmHg SpO2 Av.3 % Min: 96 % Max: 100 % 07/25 1901 - 07/27 0700 In: 1539 [I.V.:1291] Out: 3500 [Urine:3500] Body mass index is 26.56 kg/(m^2).; Body surface area is 1.82 meters squared. Constitutional General appearance: well developed, well nourished, well groomed, no acute distress Cardiovascular Auscultation: normal S1 S2; no gallop or rub or click Murmur: 3/6 systolic murmur at the base. Pedal pulses: pulses 2+, symmetric Peripheral circulation: no cyanosis, clubbing, edema, or varicosities Gastrointestinal Abdomen: soft, non-tender, no masses Liver and spleen: no enlargement Respiratory Auscultation: scattered rales and wheezing. Neck Jugular veins: no significant JVD; no a, v or galvin waves Extremities Op wound in right knee. Skin Inspection: no visible rashes, lesions, or ulcerations. ECG: SR, HR: 71 bpm, nonspecific ST T changes. LAB RESULTS: Recent Results (from the past 24 hour(s)) POC ACT Result Value Ref Range POC Activated Clotting Time 187 (H) 125-175 second(s) POC ACT Result Value Ref Range POC Activated Clotting Time 271 (H) 125-175 second(s) Troponin I Result Value Ref Range Troponin I 0.65 (HH) <0.06 ng/mL Lipid Panel Result Value Ref Range Triglycerides 68 35-160 mg/dL CHOLESTEROL 178 150-200 mg/dL HDL 56 28-83 mg/dL Chol/HDL Ratio 3.2 LDL, Calculated 108 <=130 mg/dL POC Glucose Result Value Ref Range POC Glucose 116 70-150 mg/dL ECG 12 lead Result Value Ref Range VENTRICULAR RATE EKG 71 BPM ATRIAL RATE 71 BPM P-R INTERVAL 174 ms QRS DURATION 72 ms Q-T INTERVAL 398 ms Q-T INTERVAL (CORRECTED) 432 ms P WAVE AXIS 83 degrees QRS AXIS 81 degrees T AXIS 72 degrees INTERPRETATION TEXT Normal sinus rhythm Normal ECG When compared with ECG of 26-JUL-2015 18:39, No significant change was found Confirmed by NATHANAEL AGOSTO MD ([id number]) on 07/28/2015 8:54:23 AM Troponin I Result Value Ref Range Troponin I 0.61 (HH) <0.06 ng/mL POC Glucose Result Value Ref Range POC Glucose 131 70-150 mg/dL POC Glucose Result Value Ref Range POC Glucose 236 (H) 70-150 mg/dL Troponin I Result Value Ref Range Troponin I 0.53 (HH) <0.06 ng/mL Basic Metabolic Panel Result Value Ref Range NA 139 136-149 mmol/L K 3.9 3.5-5.1 mmol/L CL 103 98-109 mmol/L CO2 26 24-31 mmol/L ANION GAP 10 3-16 mmol/L GLUCOSE 128 (H) 70-109 mg/dL BUN 8 7-18 mg/dL Creatinine, Serum/Plasma 0.66 0.60-1.30 mg/dL eGFR if not >60 >=60 mL/min/1.73m2 CALCIUM 8.8 8.3-10.5 mg/dL BUN/CREA 12.1 CBC with Differential Result Value Ref Range WBC 10.7 4.0-11.0 K/uL RBC 3.92 3.70-5.20 M/uL Hgb 11.9 11.5-16.0 g/dL Hct 35.8 34.0-47.0 % MCV 91.3 83.0-101.0 fL MCH 30.5 28.0-35.0 pg MCHC 33.4 32.0-36.0 g/dL RDW-CV 13.1 <15.0 % Platelet Count 400 140-440 K/uL MPV 7.7 fL % Neutrophils 63.5 45.0-82.0 % % Lymphocytes 19.5 (L) 20.0-45.0 % % Monocytes 9.6 4.0-12.0 % % Eosinophils 6.3 (H) 0.0-5.0 % % Basophils 1.1 (H) 0.0-1.0 % Absolute Neutrophils 6.80 1.80-8.50 K/uL Absolute Lymphocytes 2.10 0.60-3.20 K/uL Absolute Monocytes 1.00 0.00-1.00 K/uL Absolute Eosinophils 0.70 (H) 0.00-0.40 K/uL Absolute Basophils 0.10 0.00-0.10 K/uL CK Total Result Value Ref Range CK TOTAL 50 22-269 U/L Troponin I Result Value Ref Range Troponin I 0.51 (HH) <0.06 ng/mL ASSESSMENT: 1- NSTEMI involving the omb2 2- Mild to moderate . 3- S/P Knee replacement 9 days ago. 4. History of previous stroke. 5. Diabetes mellitus. 6. Hypertension. She is a status post precipitous coronary intervention to the OMB, with a 2.5 12 mm IGNACIA, I recommend to continue aspirin and clopidogrel for at least 1 year, personally review echoca rdiogram which show normal ventricular systolic function stage I diastolic dysfunction, aort ic valve sclerosis, moderate aortic valve stenosis with a peak/mean gradient of 37/22 mmHg, aortic with a peak velocity of 3.04M/S, recommend to add ACEI or ARB's as well as BB. PLAN: - Aspirin/clopidogrel for a year. - BB/ACEI. - From cardiovascular standpoint she is stable for discharge. - Follow up with cardiology in 2 weeks. Electronically signed by: Иван Cruz MD [facility] 07/28/2015 Rebecca Perry MD - 07/27/2015 9:09 PM PDTFormatting of this note might be different from the [facility] Hospitalist Progress Note Le Rollins is a 70 y.o. female ASSESSMENT and PLAN: 1. NSTEMI, status post PCI And currently is doing well. She denies complaints of chest discomfort upset stomach short ness of breath or other concerns. Her current LDL cholesterol is 108 and I will further dis cuss with her cost reduction therapy in this setting. Did advise her goal would be choleste rol LDL of 70. He does believe she may repeat cycle with further weight loss noting she had weight reduction surgery but I have discussed with her the need for cholesterol reduction t herapy until other potential weight loss. SUBJECTIVE: Patient currently is feeling well. She denies any major concerns. VITALS: Temp: 36.3 C (97.3 F), Pulse: 72, Resp: 16, BP: 173/66 mmHg (Reported to the RN.), SpO2 96 % on room air at flow rate L/min Temp Min: 36.3 C (97.3 F) Max: 37 C (98.6 F) Weight: 72.576 kg (160 lb) Intake/Output Summary (Last 24 hours) at 07/27/152109 Last data filed at 07/27/151999 Gross per 24 hour Intake 1285 ml Output 2700 ml Net -1415 ml PHYSICAL EXAM: Cardiovascular: Regular rate and rhythm with 3-4/6 systolic murmur at the right upper ster nal border Respiratory: Clear bilaterally Abdomen: Soft and nontender DIAGNOSTIC STUDIES: Available data and images were reviewed personally. Significant results and findings are a ddressed here or in the Assessment and Plan. Lab Results Component Value Date HGB 12.5 07/27/2015 HCT 37.7 07/27/2015 PLT 376 07/27/2015 WBC 10.6 07/27/2015 Lab Results Component Value Date NA 136 07/27/2015 K 3.8 07/27/2015 CL 102 07/27/2015 CO2 26 07/27/2015 CREA 0.64 07/27/2015 BUN 12 07/27/2015 MG 1.8 07/27/2015 POC GLUCOSE Date/Time Value Ref Range Status 07/27/2015 20:33 236* 70-150 mg/dL Final 07/27/2015 17:34 131 70-150 mg/dL Final 07/27/2015 11:59 116 70-150 mg/dL Final POC GLUCOSE Date/Time Value Ref Range Status 07/27/2015 20:33 236* 70-150 mg/dL Final 07/27/2015 17:34 131 70-150 mg/dL Final 07/27/2015 11:59 116 70-150 mg/dL Final No results found. Total time of approximately 25 minutes was spent with the patient and/or patient's family, and/or on the patient's floor/unit, of which more than 50% was spent counseling and/or coord ination the patient's care as outlined above. Aidan Hernandez 07/27/2015 21:10 [facility] Portions of this chart may have been created with Relationship Science voice recognition software. Occasi onal wrong-word or sound-alike substitutions may have occurred due to the inherent dhillon itations of voice recognition software. Please read the chart carefully and recognize, using context, where these substitutions have occurred Tanya Conde R N - 07/27/2015 5:45 PM PDTPt c/o increased pain in R knee, with no relief from Tylenol. Of fered [place], but pt hesitant to use narcotics. Had tried ice pack to knee, as well, without relief. Pt finally decided to try [place] for knee pain. Up walking in hallway with son at side, and using 4 wheel walker. Tanya Conde RN - 07/27/2015 2:00 PM PDTTR band deflated and removed p er protocol. Site without swelling or bruising. Иван Daley MD - 07/27/2015 12:32 PM PDTFormatt ing of this note might be different from the original. PATIENT NAME: Le Rollins : 1945: AGE: 70 y.o. PRIMARY CARE: Ole Madden DO INPATIENT FOLLOW UP VISIT Date of Service: 07/26/2015 HISTORY OF PRESENT ILLNESS: Le Rollins is a 70 y.o. female with a NSTEMI S/P PCI to the OMB2 with a 2.5x12 mm DE S. Doing well, denies chest pain, nor palpitations nor syncope. MEDICAL, SURGICAL, AND PERSONAL HISTORY Past Medical, Surgical, Family, and Social History are reviewed in EPIC. CURRENT PROBLEMS Patient Active Problem List Diagnosis Numbness and tingling in right hand DDD (degenerative disc disease), cervical Rotator cuff tear, right NEHEMIAH (obstructive sleep apnea) Obesity Hypertension Diabetes type 2, controlled Asthma Murmur, cardiac Chest pain Coronary artery calcification seen on CAT scan CURRENT MEDICATIONS Current Facility-Administered Medications Medication Dose Route Frequency Provider Last Rate Last Dose acetaminophen (TYLENOL) tablet 650 mg 650 mg Oral Q6H PRN Magdi Virk DO 650 m g at 07/27/15 0439 amLODIPine (NORVASC) tablet 2.5 mg 2.5 mg Oral Daily Lori Saba MD 2.5 mg at 0 07/27/15 0841 [START ON 07/28/2015] aspirin chewable tablet 81 mg 81 mg Oral Daily Иван miller MD clopidogrel (PLAVIX) tablet 75 mg 75 mg Oral Daily Иван Kaur MD 75 m g at 07/27/15 1154 dextrose 50% injection 12.5 g 12.5 g Intravenous PRN Lori Saba MD diphenhydrAMINE (BENADRYL) tablet 25 mg 25 mg Oral Q6H PRN Lori Saba MD DULoxetine (CYMBALTA) DR capsule 60 mg 60 mg Oral Daily Lori Saba MD 60 mg at 07/27/15 0840 heparin in half-normal saline 50 units/mL infusion 0-3,000 Units/hr Intravenous Titrat ed Иван Kaur MD Stopped at 07/27/15 1106 HYDROcodone-acetaminophen (NORCO) 5-325 mg per tablet 1-2 tablet 1-2 tablet Oral Q4H P RN Lori Saba MD levothyroxine (SYNTHROID, LEVOTHROID) tablet 150 mcg 150 mcg Oral QAM AC Lori Mckay ch, MD 150 mcg at 07/27/15 0700 lidocaine 1%-EPINEPHrine 1:100,000 injection 5 mL 5 mL Infiltration Once PRN Иван Kaur MD LORazepam (ATIVAN) tablet 0.5 mg 0.5 mg Oral Nightly PRN Lori Saba MD nitroglycerin (NITROSTAT) SL tablet 0.4 mg 0.4 mg Sublingual Q5 Min PRN Иван Kaur MD nitroglycerin (NITROSTAT) SL tablet 0.4 mg 0.4 mg Sublingual Q5 Min PRN Lori mckinley MD polyethylene glycol (MIRALAX) powder 17 g 17 g Oral Daily PRN Lori Saba MD sodium chloride 0.9% (NS) bolus 428.5 mL 6 mL/kg Intravenous Once Иван hatfield MD 107.1 mL/hr at 07/27/15 1156 428.5 mL at 07/27/15 1156 sodium chloride 0.9% (NS) infusion Intravenous Continuous Lori Saba MD 75 mL/h r at 07/27/15 0624 ALLERGIES Allergies Allergen Reactions Aripiprazole Bee Venom Clonidine Derivatives Insulin Glargine Insulin Lispro (Human) Pioglitazone Hydrochloride Shellfish-Derived Products Statins ROS Denies chest pain, nor palpitaitons. OBJECTIVE: PHYSICAL EXAM BP 142/68 mmHg | Pulse 75 | Temp(Src) 36.3 C (97.3 F) (Oral) | Resp 13 | Ht 1.651 m (5' 5") | Wt 71.4 kg (157 lb 6.5 oz) | BMI 26.19 kg/m2 | SpO2 96% General appearance: no acute distress. Eyes: no icterus. Lids normal Mouth: no cyanosis. Neck: No lymphadenopathy in the neck or supraclavicular area. Good carotid upstroke. No bruits. No JVD Lungs: CTA Heart: normal sounds 3/6 systolic murmur Abdomen: soft. Ext: No CCE in upper or lower extremities Neuro: Awake and oriented x3 ECG: SR TELEMETRY: SR, nonspecific ST T changes. LAB RESULTS: LIPID No results found for: CHOL, TRIG, HDL, LDL, CHOLHDL, LDLEX, HDLEX, TRIGEX, CHOLEX CHEMISTRY Lab Results Component Value Date GLU 130* 07/27/2015 NA 136 07/27/2015 K 3.8 07/27/2015 CL 102 07/27/2015 CO2 26 07/27/2015 CALCIUM 8.5 07/27/2015 CREA 0.64 07/27/2015 BUN 12 07/27/2015 HEMATOLOGY Lab Results Component Value Date WBC 10.6 07/27/2015 HGB 12.5 07/27/2015 HCT 37.7 07/27/2015 PLT 376 07/27/2015 ECHOCARDIOGRAM: (personally reviewed) Normal left ventricular systolic function with an EF of 70%. Normal left ventricular cavity size. Stage I diastolic dysfunction. Mild to moderate aortic valve stenosis with peak velocity 3 m/s and dimentionless index; 0. 44 suggestive of moderate AV stenosis. ASSESSMENT: 1- NSTEMI involving the omb2 2- Mild to moderate . 3- S/P Knee replacement 9 days ago. 4. History of previous stroke. 5. Diabetes mellitus. 6. Hypertension. She is a status post precipitous coronary intervention to the OMB, with a 2.5 12 mm IGNACIA, I recommend to continue aspirin and clopidogrel for at least 1 year, personally review echoca rdiogram which show normal ventricular systolic function stage I diastolic dysfunction, aort ic valve sclerosis, moderate aortic valve stenosis with a peak/mean gradient of 37/22 mmHg, aortic with a peak velocity of 3.04M/S, recommend to add ACEI or ARB's as well as BB. We're to ask orthopedic surgery if there is any recommendations for trouble prophylaxis now that she is on dual antiplatelet therapy. RECOMENDATIONS: - Aspirin/clopidogrel. - Statins. - beta blockers and ACEI. - Echocardiogram. Electronically signed by: Иван Cruz MD [facility] 07/27/2015 Portions of this chart may have been created with [employer] voice recognition software. Occasi onal wrong-word or sound-alike substitutions may have occurred due to the inherent dhillon itations of voice recognition software. Please read the chart carefully and recognize, using context, where these substitutions have occurred. Tanya Conde RN - 07/27/2015 11:45 AM PDTPt returned from cathode washer. Alert, oriented and talkin g. No pain. No anxiety noted. Aidan Perry MD - 07/26/2015 7:25 PM PDTHospitalist follow-up This patient was referred from [facility] with negative troponins at 8 AM and 1 1:30 AM this morning. This evening at 5:15 PM she has a troponin of 1.08. EKG repeated at the time of being advised of the positive troponin is normal. The patient's lungs are clear . She is currently not having what sounds to be cardiac chest pain by history. Her exam shows a 3 to 4/6 systolic murmur at the right upper sternal border. Echocardiogra phy obtained 07/2014 showed only mild stenosis with a calcific valve. Given her positive tro ponin and the quality of her murmur the plan will be to obtain echocardiography now. I have asked Dr. Huerta who is on-call for cardiology to see patient this evening and he will see her following an admission that he is currently performing. Иван Daley MD - 07/26/2015 7:12 PM PDTF ormatting of this note might be different from the original. PATIENT NAME: Le Rollins : 1945: AGE: 70 y.o. PRIMARY CARE: Ole Madden DO INPATIENT FOLLOW UP VISIT Date of Service: 07/26/2015 Referring physician: Dr. Hernandez REASON FOR CONSULTATION: NSTEMI. HISTORY OF PRESENT ILLNESS: Le Rollins is a 70 y.o. female with past medical history listed below, who had a rec ent knee replacement surgery, 10 days ago who was referred from [place] with history of ep isodes of chest pain, described as pressure like no radiated, associated with nausea, lasted an hour and it went away, and started yesterday morning. On initial evaluation she had a tr oponin elevation therefore I was called to evaluate her. During evaluation she was chest pain free. MEDICAL DDD (degenerative disc disease), cervical 02/08/2012 NEHEMIAH (obstructive sleep apnea) Obesity Hypertension Diabetes type 2, controlled (HCC) Off all medications since surgery Asthma Stroke (HCC) SURGICAL Tonsillectomy and adenoidectomy 1950 Appendectomy 1958 Hysterectomy, total abdominal 1973 Cholecystectomy 1988 Right knee arthroscopy 1989 Uvulopalatopharygoplasty 1988 Thyroidectomy, partial 1985 Thyroidectomy 2005 Gastric bypass surgery 2012 Total knee arthroplasty Right 07/16/2015 CURRENT PROBLEMS Patient Active Problem List Diagnosis Numbness and tingling in right hand DDD (degenerative disc disease), cervical Rotator cuff tear, right NEHEMIAH (obstructive sleep apnea) Obesity Hypertension Diabetes type 2, controlled Asthma Murmur, cardiac Chest pain Coronary artery calcification seen on CAT scan CURRENT MEDICATIONS Current Facility-Administered Medications Medication Dose Route Frequency Provider Last Rate Last Dose albuterol 2.5 mg/3 mL nebulizer solution 2.5 mg 2.5 mg Nebulization RT Q4H PRN Lori Saba MD amLODIPine (NORVASC) tablet 2.5 mg 2.5 mg Oral Daily oLri Saba MD 2.5 mg at 0 07/26/15 1725 aspirin tablet 325 mg 325 mg Oral BID Lori Saba MD dextrose 50% injection 12.5 g 12.5 g Intravenous PRN Lori Saba MD diphenhydrAMINE (BENADRYL) tablet 25 mg 25 mg Oral Q6H PRN Lori Saba MD DULoxetine (CYMBALTA) DR capsule 60 mg 60 mg Oral Daily Loir Saba MD 60 mg at 07/26/15 1721 HYDROcodone-acetaminophen (NORCO) 5-325 mg per tablet 1-2 tablet 1-2 tablet Oral Q4H P RN Lori Saba MD levothyroxine (SYNTHROID, LEVOTHROID) tablet 150 mcg 150 mcg Oral QAM AC Lori Mckay ch, MD 150 mcg at 07/26/15 1722 LORazepam (ATIVAN) tablet 0.5 mg 0.5 mg Oral Nightly PRN Lori Saba MD nitroglycerin (NITROSTAT) SL tablet 0.4 mg 0.4 mg Sublingual Q5 Min PRN Lori mckinley MD polyethylene glycol (MIRALAX) powder 17 g 17 g Oral Daily PRN Lori Saba MD sodium chloride 0.9% (NS) infusion Intravenous Continuous Lori Saba MD 75 mL/h r at 07/26/15 1718 ALLERGIES Allergies Allergen Reactions Aripiprazole Bee Venom Clonidine Derivatives Insulin Glargine Insulin Lispro (Human) Pioglitazone Hydrochloride Shellfish-Derived Products Statins ROS Complaints of knee pain, fatigue and anxiety. The rest of the 14 point review of system is negative except fpr the issues outlined in HPI . OBJECTIVE: PHYSICAL EXAM BP 155/62 mmHg | Pulse 70 | Temp(Src) 36.1 C (97 F) (Oral) | Resp 17 | Ht 1.651 m (5' 5 ") | Wt 72.576 kg (160 lb) | BMI 26.63 kg/m2 | SpO2 99% General appearance: no acute distress. Eyes: no icterus. Lids normal Mouth: no cyanosis. Neck: No lymphadenopathy in the neck or supraclavicular area. Good carotid upstroke. No bruits. No JVD Lungs: CTA Heart: normal sounds 3/6 systolic murmur at the base. Abdomen: soft. Ext: No CCE in upper or lower extremities Neuro: Awake and oriented x3 ECG: SR, nonspecific ST T changes, septal Q waves. LAB RESULTS: HEMATOLOGY Lab Results Component Value Date HGB 11.9 07/18/2015 HCT 35.4 07/18/2015 ASSESSMENT: 1- NSTEMI 2- Mild tp 3- S/P Knee replacement 9 days ago. 4. History of previous stroke. 5. Diabetes mellitus. 6. Hypertension. Admitted with history chest pain, and CTA showed extensive calcification in LM and LAD and aortic valve sclerosis, and found to have a NSTEMI and transferred to this hospital for julian luation. Discussed risks benefits and alternatives to the procedure in detail answered her questions and she agreed to proceed. PLAN: - Aspirin/clopidogrel. - Statins. - Heparin drip. - Echocardiogram. - Left heart catheterization in the am. Electronically signed by: Иван Cruz MD [facility] 07/26/2015 Portions of this chart may have been created with [employer] voice recognition software. Occasi onal wrong-word or sound-alike substitutions may have occurred due to the inherent dhillon itations of voice recognition software. Please read the chart carefully and recognize, using context, where these substitutions have occurred. documented in this encounter H&P Notes Lori Saba MD - 07/26/2015 4:05 PM PDTFormatting of this note might be different fr om the original. [facility] HISTORY AND PHYSICAL Pt. Name/Age/: Le Rollins 70 y.o. 1945 Date of admission: 07/26/2015 Admitting Physician: Lori Saba MD Primary Care Provider: Ole Madden DO CHIEF COMPLAINT: Chest pain post op about one week from right knee surgery HISTORY OF PRESENT ILLNESS: This is a 70 y.o. female who presents with chest pain with radiation to her left arm and ne ck with finding of coronary calcification on CT of her chest done at [facility] that ruled o ut a PE. The patient is pleasant and alert. She states she has had to overdo it since being home but did see Dr. Fernandez yesterday and is only taking Tylenol for knee pain. She is quite anxious about her pain and the calcification because her Dad had calcium build up and had b ypass surgery. She is being admitted to the hospitalist service. PAST MEDICAL and SURGICAL HISTORY: Past Medical History Diagnosis Date Numbness and [...] 1989 Uvulopalatopharygoplasty 1987 Thyroidectomy, partial 1985 Thyroidectomy 2005 Gastric bypass surgery 2011 Total knee arthroplasty Right 07/16/2015 Procedure: Right Total Knee Arthroplasty; Surgeon: Jordin Fernandez MD; Location: [facility] FAMILY HISTORY: family history includes Heart disease in her father; Other (see comment) in her son. SOCIAL HISTORY: reports that she has never smoked. She has never used smokeless tobacco. She reports that she drinks alcohol. She reports that she does not use illicit drugs. REVIEW OF SYSTEMS: Positive for anxiety, right knee swelling. A complete 10-system review was otherwise negat justin except as noted in the HPI. HOME MEDICATIONS: Current Discharge Medication List CONTINUE these medications which have NOT CHANGED Details amLODIPine (NORVASC) 2.5 mg tablet Take 2.5 mg by mouth Daily. aspirin 325 mg tablet Take 1 tablet by mouth 2 times daily for 28 days. Qty: 56 tablet, Refills: 0 calcium citrate-vitamin D (CALCIUM + D) 315 mg-200 units per tablet Take 1 tablet by mouth 2 times daily. cyanocobalamin (VITAMIN B-12) 1000 MCG tablet Take 1,000 mcg by mouth Daily. diphenhydrAMINE (BENADRYL) 25 mg tablet Take 25 mg by mouth every 6 hours as needed for Itc robin. DULoxetine (CYMBALTA) [address] capsule Take 60 mg by mouth Daily. EPINEPHrine (EPIPEN) 0.3 mg/0.3 mL injection Inject 0.3 mg into the muscle as needed for An aphylaxis. HYDROcodone-acetaminophen (NORCO) 7.5-325 mg per tablet Take 1 - 2 tablets by mouth EVERY 4 to 6 HOURS NEEDED for Pain. Qty: 30 tablet, Refills: 0 levothyroxine (SYNTHROID, LEVOTHROID) 150 mcg tablet Take 150 mcg by mouth every morning (b efore breakfast). lisinopril-hydrochlorothiazide (PRINZIDE,ZESTORETIC) 20-25 MG per tablet Take 1 tablet by m outh Daily. Magnesium 200 MG TABS Take by mouth. metFORMIN (GLUCOPHAGE) 500 mg tablet Take 500 mg by mouth 2 times daily (with breakfast & d inner). Multiple Vitamins-Minerals (MULTIVITAMIN PO) Take by mouth. omeprazole (PRILOSEC) 20 mg capsule Take 20 mg by mouth 2 times daily. ALLERGIES: Allergies Allergen Reactions Aripiprazole Bee Venom Clonidine Derivatives Insulin Glargine Insulin Lispro (Human) Pioglitazone Hydrochloride Shellfish-Derived Products Statins VITAL SIGNS: Temp: 36.1 C (97 F), Pulse: 72, Resp: 25, BP: 148/63 mmHg, SpO2 100 % on room air at fl ow rate L/min Temp Min: 36.1 C (97 F) Max: 36.1 C (97 F) Weight: 72.576 kg (160 lb) PHYSICAL EXAMINATION: Gen Robyn - alert, cooperative and no distress Head - Normocephalic, without obvious abnormality, atraumatic Eyes - PERRL, conjunctiva/corneas clear, EOM's intact both eyes ENT - mucous membranes moist Neck - supple Lungs - clear to auscultation, no wheezes or rales and unlabored breathing Heart - normal rate and regular rhythm, S1 and S2 normal, III/ murmur Abdomen - soft, non-tender, without masses or organomegaly Extremities - mild swelling right leg, post op changes Neurologic - Alert and oriented x 3. CN II-XII intact. DIAGNOSTIC STUDIES: Available data and images were reviewed personally. Significant results and findings are a ddressed here or in the Assessment and Plan. Lab Results Component Value Date HGB 11.9 07/18/2015 HCT 35.4 07/18/2015 No results found for: NA, K, CL, CO2, CREA, BUN, MG, PHOS, CRP, ESR, TROPONINI, BNP POC GLUCOSE Date/Time Value Ref Range Status 07/16/2015 17:18 133 70-150 mg/dL Final 07/16/2015 11:17 122 70-150 mg/dL Final No results found. ASSESSMENT and PLAN: Principal Problem: Coronary artery calcification seen on CAT scan Active Problems: NEHEMIAH (obstructive sleep apnea) Hypertension Diabetes type 2, controlled Asthma Murmur, cardiac Chest pain Plan: chest pain, abnormal coronary calcification, echo to be arranged, considering other s tress testing, admit inpatient to step down, cardiology consultation DVT Prophylaxis low molecular weight heparin Code Status Full Code. CMS Documentation I expect this patient will be hospitalized for greater than 2-midnights and expect the post -hospital plan to be discharge to home or to an adult foster home. Total of 45 minutes were required to complete the admission process. Electronically signed by: Lori Saba MD 07/26/2015 16:05 [facility] Portions of this chart may have been created with [employer] voice recognition software. Occasi onal wrong-word or sound-alike substitutions may have occurred due to the inherent dhillon itations of voice recognition software. Please read the chart carefully and recognize, using context, where these substitutions have occurred documented in this e ncounter Miscellaneous Notes Plan of Care - Ricky Spears, [facility] - 07/28/2015 11:15 AM PDTArrangements made for t he patient to be discharged to [facility] an SNF in [place]. Patient received he r medicare important message. Demographics, SNF orders, DC summary, scripts, and PASRR faxe d to [facility]. Patient's son will transport her.Electronically signed by: CHIVO Ward 07/28/2015 11:20 [facility] Transfer - Aidan Hernandez MD - 07/28/2015 9:52 AM PDTFormatting of this n ote might be different from the original. RETIREMENT FACILITY TRANSFER ORDERS Patient Name: Le Rollins Patient : 1945 Gender: female Date of Admission: 07/26/2015 Date of Discharge: 07/28/2015 Admitting Provider: Lori Saba MD Discharging Provider: Aidan Hernandez MD Consultants: Иавн Huerta MD PCP: Ole Madden [facility] transferring to: [facility] skilled care Provider after transfer: Wilson Maloney M.D. CODE STATUS: [x] Attempt CPR [] Do not resuscitate If patient is pulseless and not breathing, RN/WAIVER ANALYST may pronounce . Advanced Directives included: [] POLST [] MOLST/MOST [] [employer] [place] ([place]) [] Other: Code status discussed with: [x] Patient [] Spouse/Family [] DPOA [] Other: Name of person discussed with: Date discussed: Isolation/Infection Precautions: [] None Height: Height: 165.1 cm (5' 5") Wt Readings from Last 3 Encounters: 07/28/15 72.4 kg (159 lb 9.8 oz) 07/16/15 72.122 kg (159 lb) 02/26/15 74.208 kg (163 lb 9.6 oz) Admitting Diagnosis: Unstable angina Patient Active Problem List Diagnosis NSTEMI, status post PCI aortic valve stenosis, moderate Rotator cuff tear, right NEHEMIAH (obstructive sleep apnea) Obesity Hypertension Diabetes type 2, controlled Asthma Murmur, cardiac Chest pain Coronary artery calcification seen on CAT scan Allergies Allergen Reactions Aripiprazole Bee Venom Clonidine Derivatives Insulin Glargine Insulin Lispro (Human) Pioglitazone Hydrochloride Shellfish-Derived Products Statins There is no immunization history on file for this patient. Diet: [] As tolerated WELDER JOURNEYMAN may upgrade or downgrade diet as condition Indicates. [] RN may downgrade diet as indicated. Type: [] Continue current diet of: Diet and Supplements Diet Diet fat and cholesterol modified; caffeine free; Effective Now Number of Occurrences: Until Specified Order Questions: Type Diet fat and cholesterol modified Additional modifications caffeine free Activity/Therapies: []WBAT [] Weight Bearing Restricted (specify limb(s)): [x] PT Evaluation & Management for: [x] OT Evaluation & Management for: [] WELDER JOURNEYMAN Evaluation &Management for: [] Other: Wound/Skin Care: [] Follow current recommendations of the wound team for treatment. [] Follow standard nursing protocols for wound care. [] Wound Vac management per nursing protocol. Indication: Location: Settings: Change frequency: & prn [x] Other: Check glucoscans twice a day before breakfast and evening meals Follow up appointments and consultations: Date/Time: Date/Time I have advised this patient that he/she not use tobacco products. TB screening: Upon admission the 1st and 2nd step TST will be done as per protocol if Resid ent has no history of TB or a past positive TST. Pharmacist may substitute equivalent Rx based on facility or insurance formulary as needed unless otherwise specified by physician. Please write "YOKASTA" (Dispense as written) if a medi cation should not be substituted. Please make sure to write a diagnosis for ALL medications continued on transfer. Antibioti cs require a stop date. If medications do not contain a SIG, make sure doses/routes and fortunato edule is included. Medication Orders New Medications Details Order Next Dose Due acetaminophen 325 mg tablet Take 2 tablets by mouth every 6 hours as needed for Pain. aka: TYLENOL By: Aidan Hernandez Quant: 100 tablet clopidogrel 75 mg tablet Take 1 tablet by mouth Daily. aka: PLAVIX By: Aidan Hernandez Quant: 100 tablet HYDROcodone-acetaminophen 5-325 mg per tablet Replaces: HYDROcodone-acetaminophen 7.5-325 mg per tablet Take 1-2 tablets by mouth every 4 hours as needed for Pain. aka: NORCO By: Aidan Hernandez Quant: 50 tablet lisinopril 10 mg tablet Take 1 tablet by mouth Daily. aka: PRINIVIL, ZESTRIL By: Aidan Hernandez Quant: 30 tablet LORazepam 0.5 mg tablet Take 1 tablet by mouth nightly as needed for Insomnia. aka: ATIVAN By: Aidan Hernandez Quant: 20 tablet metoprolol tartrate 25 mg tablet Take 0.5 tablets by mouth 2 times daily. aka: LOPRESSOR By: Aidan Hernandez Quant: 60 tablet nitroglycerin 0.[address] 1 tablet under the tongue every 5 minutes as needed for Chest pain. aka: NITROSTAT By: Aidan Hernandez Quant: 25 tablet polyethylene glycol packet Take 1 diluted packet by mouth Daily as needed. aka: MIRALAX By: Aidan Hernandez Changed Medications Details Order Next Dose Due aspirin 325 mg tablet 1 pill daily What changed: - how much to take - how to take this - when to take this - additional instructions By: Aidan Hernandez Quant: 56 tablet metFORMIN 500 mg tablet 1 pill twice daily starting on 07/29/2015 What changed: - how much to take - how to take this - when to take this - additional instructions aka: GLUCOPHAGE By: Aidan Hernandez Quant: 60 tablet Unchanged Medications Details Order Next Dose Due amLODIPine 2.5 mg tablet Take 2.5 mg by mouth Daily. aka: NORVASC CALCIUM + D 315 mg-200 units per tablet Generic drug: calcium citrate-vitamin D Take 1 tablet by mouth 2 times daily. cyanocobalamin 1000 MCG tablet Take 1,000 mcg by mouth Daily. aka: VITAMIN B-12 diphenhydrAMINE 25 mg tablet Take 25 mg by mouth every 6 hours as needed for Itching. aka: BENADRYL DULoxetine [address] capsule Take 60 mg by mouth Daily. aka: CYMBALTA EPINEPHrine 0.3 mg/0.3 mL injection Inject 0.3 mg into the muscle as needed for Anaphylaxis. aka: EPIPEN levothyroxine 150 mcg tablet Take 150 mcg by mouth every morning (before breakfast). aka: SYNTHROID, LEVOTHROID Magnesium 200 MG Tabs Take by mouth. MULTIVITAMIN PO Take by mouth. omeprazole 20 mg capsule Take 20 mg by mouth 2 times daily. aka: priLOSEC Discontinued Medications HYDROcodone-acetaminophen 7.5-325 mg per tablet aka: NORCO Replaced by: HYDROcodone-acetaminophen 5-325 mg per tablet lisinopril-hydrochlorothiazide 20-25 MG per tablet aka: DOMINIC ROJAS I, Aidan Hernandez MD, certify that post hospital senior living care is medically necessa ry on a continuing basis for any of the conditions for which he/she received care during thi s hospitalization. Check one: [x] Skilled [] Intermediate Additional Orders/Instructions: Physician's signature: 07/28/2015 9:52 [facility] USE ONLY: [] Admitting orders verbally reviewed with Admitting Physician, modified where appropriate, and approved. Verbal Order from Date: Time: _ RN name: RN signature: [] Admitting orders reviewed, modified where appropriate, and approved. Physician's signature: Date: Time: lan of Care - Srinath Fletcher, BRAID PATTERN SETTER - 07/27/2015 6:20 PM PDTFormatting of this note might be different from the o riginal. Problem: Patient Care Overview (Adult) Goal: Care Team Goals & Evaluation PROBLEM-RELATED GOALS: Le will have no chest pain by 07/28/15. Le will have knee pain level of 4/10 or less by 07/28/15. STRATEGY TO ACHIEVE GOALS: Administer NTG for chest pain/notify MD. Use pain meds and ice for knee pain. Maximize mobility. RESTRAINT-RELATED GOALS: STRATEGIES TO ACHIEVE RESTRAINT GOALS: Goal Evaluation: Severity Score Class Severity Score 0-4 ITEM 0 1 2 3 4 0 Respiratory History No Smoking history Current tobacco use Up to 10 Pack year history. Simple home regimen Known Pulmonary Disease 20 pack year history Complex Home regimen 30+ pack year history Severe Pulmonary Disease or exacerbation 1 Surgery Status (current admission) No surgery Minor surgery Lower abdominal rib fractures Thoracic or uppe r abdominal Thoracic with pulmonary disease or Central Nervous System 1 Chest X-RAY Clear or Normal baseline Unavailable Improving/clearing Abnormal, Unilateral or mild Infiltrates or atelectasis, Chronic changes Infiltrates mild bilateral or unilateral or pleural effusions extensive Inf iltrates, atelectasis or pleural effusions, pneumothorax 0 Respiratory Pattern Regular pattern Respiratory Rate:8-20 Increased Respiratory Rate, labored Dyspnea on exertion, irregular pattern Use of accessory muscles, prolonged expirato ry phase nasal flaring Severe Dyspnea , Purse Lip Breathing, Use of accessory muscles 0 Breath Sounds Clear Diminished unilaterally Diminished bilaterally &/or crackles Wheezing or Rhonchi &/or absent unilateral Absent bilaterally 0 Cough Strong, non productive Moderate, loose, productive Weak, non-productive Weak, ineffective Non-spontaneous or may require suctioning 0 Sputum None Scant / Thin White/clear Moderate Beige/ yellow Large / Thick Dark Green/Brown Copious / Plugs Hemoptysis margarita 0 LOC Alert, oriented, cooperative Disoriented, follows commands Obtunded, arousable, follo ws commands Obtunded, uncooperative, sedated Comatose 0 Oxygen Demand Room air Baseline 1-2 liters 3-6 liters >7 Liters Oxymizer to > 55% 60% or greater Total Severity Score (SS) Class 0-3 1 4-7 2 8-11 3 12-14 4 15+ 5 screed operator score 2 No interventions at this time Patient states sleep study showed no sleep apnea, she is not treated with a sleep apnea dev ice at home She states she has lost over 100 pounds, but family says still snores at times. Does not wear oxygen at home Denies shortness of breath lan of Care - Tanya Porter RN - 07/27/2015 5:57 PM PDTProblem: Patient Care Overview (Adult) Goal: Care Team Goals & Evaluation PROBLEM-RELATED GOALS: Reverse airway bronchospasm by STRATEGY TO ACHIEVE GOALS: Administer respiratory medications as ordered. RESTRAINT-RELATED GOALS: STRATEGIES TO ACHIEVE RESTRAINT GOALS: Outcome: Improving Goal Evaluation: Heart cath done today, with stent to RCA. Right radial approach. No chest pain or pressure , but has had increased right knee pain. Ice to knee and tylenol given, with no relief. Norc o given. VSS. edation Docume ntation - Stuart Tobias RN - 07/27/2015 11:38 AM PDTArrived to the room safely and in stable condition. TR band is in place and patient had no personal belongings with her. Rep ort given to Cathy VANN. edation Documentation - Stuart Tobias RN - 07/27/2015 11:26 AM PDTTransported via gurney to room 460. Tolerated well. TR band in place 11ml AIR. wash rack operator in place . edation Documenta tion - Stuart Tobias RN - 07/27/2015 11:[address] band in [address] 10ml of air.Electron ically signed by Stuart Tobias RN at 07/27/2015 11:14 AM PDTPlan of Salma - Onel Rawls RN - 07/27/2015 9:21 AM PDTDischarge planning: Late entry: I met with Ms Le Rollins and her son, Anderson yesterday, 07/25 @ 6:12 pm. She states she had right knee surgery about a week ago, was discharged to home and has no h ad chest pain and went into [facility] where she was the admitted into the ICU at [facility]. She states she thought that she would do ok when discharged home after her knee surgery. Ho wever, now she does not want to return to home, she states she would like to go to [facility] in [place] for rehab prior to returning to home. The have already discussed this with Lisandro dewitt and [facility] is holding a bed. Ms Rollins states her son Anderson will be her transportation to [facility] when she is medica lly stable for discharge. Anderson states he will be her transportation to [facility] and her c ontact person for any information. I have faxed a referral packet to [place], [place] [id number] Electronically signed by: Veda Rawls RN 07/27/2015 9:27 lan of Kadi Gupta, RICCARDO - 07/26/2015 6:15 PM PDT Problem: Patient Care Overview (Adult) Goal: Care Team Goals & Evaluation PROBLEM-RELATED GOALS: Reverse airway bronchospasm by STRATEGY TO ACHIEVE GOALS: Administer respiratory medications as ordered. RESTRAINT-RELATED GOALS: STRATEGIES TO ACHIEVE RESTRAINT GOALS: Goal Evaluation:Severity Score 1 Class 1 Patient is on room air with clear breath sounds. She has a history of asthma so an albuter ol neb is ordered prn. Continue to monitor patient. ITEM 0 1 2 3 4 0 Respiratory History No Smoking history Current tobacco use Up to 10 Pack year history. Simple home regimen Known Pulmonary Disease 20 pack year history Complex Home regimen 30+ pack year history Severe Pulmonary Disease or exacerbation 0 Surgery Status (current admission) No surgery Minor surgery Lower abdominal rib fractures Thoracic or uppe r abdominal Thoracic with pulmonary disease or Central Nervous System 1 Chest X-RAY Clear or Normal baseline Unavailable Improving/clearing Abnormal, Unilateral or mild Infiltrates or atelectasis, Chronic changes Infiltrates mild bilateral or unilateral or pleural effusions extensive Inf iltrates, atelectasis or pleural effusions, pneumothorax 0 Respiratory Pattern Regular pattern Respiratory Rate:8-20 Increased Respiratory Rate, labored Dyspnea on exertion, irregular pattern Use of accessory muscles, prolonged expirato ry phase nasal flaring Severe Dyspnea , Purse Lip Breathing, Use of accessory muscles 0 Breath Sounds Clear Diminished unilaterally Diminished bilaterally &/or crackles Wheezing or Rhonchi &/or absent unilateral Absent bilaterally 0 Cough Strong, non productive Moderate, loose, productive Weak, non-productive Weak, ineffective Non-spontaneous or may require suctioning 0 Sputum None Scant / Thin White/clear Moderate Beige/ yellow Large / Thick Dark Green/Brown Copious / Plugs Hemoptysis margarita 0 LOC Alert, oriented, cooperative Disoriented, follows commands Obtunded, arousable, follo ws commands Obtunded, uncooperative, sedated Comatose 0 Oxygen Demand Room air Baseline 1-2 liters 3-6 liters >7 Liters Oxymizer to > 55% 60% or greater Total Severity Score (SS) Class 0-3 1 4-7 2 8-11 3 12-14 4 15+ 5 documented in t his encounter Plan of Treatment Not on filedocumented as of this encounter Procedures + +--------+ + + + | Procedure Name | Priori | Date/Time | Associated Diagnosis | Comments | | | ty | | | | + +--------+ + + + | TROPONIN I | Routin | 07/28/2015 | | Results for this | | | e | 10:57 AM | | procedure are in the | | | | PDT | | results section. | + +--------+ + + + | TROPONIN I | Routin | 07/28/2015 | | Results for this | | | e | 5:09 AM | | procedure are in the | | | | PDT | | results section. | + +--------+ + + + | CBC WITH | Routin | 07/28/2015 | | Results for this | | DIFFERENTIAL | e | 5:09 AM | | procedure are in the | | | | PDT | | results section. | + +--------+ + + + | CK TOTAL | Routin | 07/28/2015 | | Results for this | | | e | 5:09 AM | | procedure are in the | | | | PDT | | results section. | + +--------+ + + + | BASIC METABOLIC | Routin | 07/28/2015 | | Results for this | | PANEL | e | 5:09 AM | | procedure are in the | | | | PDT | | results section. | + +--------+ + + + | TROPONIN I | Routin | 07/27/2015 | | Results for this | | | e | 11:05 PM | | procedure are in the | | | | PDT | | results section. | + +--------+ + + + | POC GLUCOSE | Routin | 07/27/2015 | | Results for this | | | e | 8:33 PM | | procedure are in the | | | | PDT | | results section. | + +--------+ + + + | POC GLUCOSE | Routin | 07/27/2015 | | Results for this | | | e | 5:34 PM | | procedure are in the | | | | PDT | | results section. | + +--------+ + + + | TROPONIN I | Routin | 07/27/2015 | | Results for this | | | e | 5:07 PM | | procedure are in the | | | | PDT | | results section. | + +--------+ + + + | ECG 12 LEAD | Routin | 07/27/2015 | | Results for this | | | e | 1:18 PM | | procedure are in the | | | | PDT | | results section. | + +--------+ + + + | POC GLUCOSE | Routin | 07/27/2015 | | Results for this | | | e | 11:59 AM | | procedure are in the | | | | PDT | | results section. | + +--------+ + + + | LIPID PANEL | Routin | 07/27/2015 | | Results for this | | | e | 11:56 AM | | procedure are in the | | | | PDT | | results section. | + +--------+ + + + | TROPONIN I | Routin | 07/27/2015 | | Results for this | | | e | 11:56 AM | | procedure are in the | | | | PDT | | results section. | + +--------+ + + + | CV DIAGNOSTIC | Routin | 07/27/2015 | | Results for this | | CARDIAC CATH | e | 11:17 AM | | procedure are in the | | | | PDT | | results section. | + +--------+ + + + | POC ACTIVATED | Routin | 07/27/2015 | | Results for this | | CLOTTING TIME ISTAT | e | 11:08 AM | | procedure are in the | | | | PDT | | results section. | + +--------+ + + + | POC ACTIVATED | Routin | 07/27/2015 | | Results for this | | CLOTTING TIME ISTAT | e | 10:25 AM | | procedure are in the | | | | PDT | | results section. | + +--------+ + + + | CV DIAGNOSTIC | | 07/27/2015 | Chest Pain | | | CARDIAC CATH | | 9:33 AM | | | | | | PDT | | | + +--------+ + + + | TROPONIN I | Routin | 07/27/2015 | | Results for this | | | e | 5:15 AM | | procedure are in the | | | | PDT | | results section. | + +--------+ + + + | PTT | Routin | 07/27/2015 | | Results for this | | | e | 5:15 AM | | procedure are in the | | | | PDT | | results section. | + +--------+ + + + | CBC WITH | Routin | 07/27/2015 | | Results for this | | DIFFERENTIAL | e | 5:15 AM | | procedure are in the | | | | PDT | | results section. | + +--------+ + + + | MAGNESIUM | Routin | 07/27/2015 | | Results for this | | | e | 5:15 AM | | procedure are in the | | | | PDT | | results section. | + +--------+ + + + | BASIC METABOLIC | Routin | 07/27/2015 | | Results for this | | PANEL | e | 5:15 AM | | procedure are in the | | | | PDT | | results section. | + +--------+ + + + | TROPONIN I | Routin | 07/26/2015 | | Results for this | | | e | 10:56 PM | | procedure are in the | | | | PDT | | results section. | + +--------+ + + + | PTT | STAT | 07/26/2015 | | Results for this | | | | 9:55 PM | | procedure are in the | | | | PDT | | results section. | + +--------+ + + + | PROTIME INR | STAT | 07/26/2015 | | Results for this | | | | 9:55 PM | | procedure are in the | | | | PDT | | results section. | + +--------+ + + + | POC GLUCOSE | Routin | 07/26/2015 | | Results for this | | | e | 8:27 PM | | procedure are in the | | | | PDT | | results section. | + +--------+ + + + | ECHO COMPLETE | Routin | 07/26/2015 | | Results for this | | | e | 8:20 PM | | procedure are in the | | | | PDT | | results section. | + +--------+ + + + | ECG 12 LEAD | [facility] | 07/26/2015 | | Results for this | | | | 6:39 PM | | procedure are in the | | | | PDT | | results section. | + +--------+ + + + | ECG 12 LEAD | Routin | 07/26/2015 | | Results for this | | | e | 5:28 PM | | procedure are in the | | | | PDT | | results section. | + +--------+ + + + | TROPONIN I | Routin | 07/26/2015 | | Results for this | | | e | 5:15 PM | | procedure are in the | | | | PDT | | results section. | + +--------+ + + + | CULTURE, MRSA | Routin | 07/26/2015 | | Results for this | | | e | 3:25 PM | | procedure are in the | | | | PDT | | results section. | + +--------+ + + + | LVEF VALUE | Routin | 07/26/2015 | | Results for this | | | e | | | procedure are in the | | | | | | results section. | + +--------+ + + + documented in this encounter Results Troponin I (07/28/2015 10:57 AM PDT) + + + + + + | Component | Value | Ref Range | Performed | Pathologist | | | | | At | Signature | + + + + + + | Troponin I | 0.41 (H)Comment: | <0.06 ng/mL | [facility] | | | | Reference | | [facility] | | | | Ranges:0.00-0.06 = | | MEDICAL | | | | NORMAL>0.06 = | | CENTER - | | | | SUSPICIOUS FOR | | LABORATORY | | | | MYOCARDIAL DAMAGE NOTE: | | | | | | Values greater than 0.50 | | | | | | ng/mL have been shown | | | | | | to be strongly | | | | | | associated with acute | | | | | | myocardial infarction. | | | | | | The [employer] | | | | | | Cardiology (ACC) | | | | | | recommends a decision | | | | | | limit of 0.06 ng/mL for | | | | | | this assay. Results | | | | | | greater than 0.06 can | | | | | | reflect a pre-infarct | | | | | | acute coronary syndrome, | | | | | | but can also reflect | | | | | | myocardial necrosis or | | | | | | injury that is not due | | | | | | to coronary artery | | | | | | disease. Some of these | | | | | | causes are sepsis, | | | | | | hypocolemia, atrial | | | | | | fibrillation, heart | | | | | | failure, pulmonary | | | | | | embolism, myocarditis, | | | | | | myocardial contusion, | | | | | | and renal failure. The | | | | | | diagnosis of myocardial | | | | | | infarction should be | | | | | | based on a combination | | | | | | of the patient's | | | | | | clinical presentation | | | | | | and the clinical | | | | | | laboratory test results | | | | | | (especially serial | | | | | | troponin levels). | | | | + + + + + + + + | Specimen | + + | Blood | + + + + + + + | Performing | Address | City/State/Zipcode | Phone Number | | Organization | | | | + + + + + | [facility] | [address] | [place] | [phone] | | [facility] | | [address] | | | - LABORATORY | | | | + + + + + Troponin I (07/28/2015 5:09 AM PDT) + + + + + + | Component | Value | Ref Range | Performed | Pathologist | | | | | At | Signature | + + + + + + | Troponin I | 0.51 ()Comment: | <0.06 ng/mL | [facility] | | | | Reference | | [facility] | | | | Ranges:0.00-0.06 = | | MEDICAL | | | | NORMAL>0.06 = | | CENTER - | | | | SUSPICIOUS FOR | | LABORATORY | | | | MYOCARDIAL DAMAGE NOTE: | | | | | | Values greater than 0.50 | | | | | | ng/mL have been shown | | | | | | to be strongly | | | | | | associated with acute | | | | | | myocardial infarction. | | | | | | Consistent with previous | | | | | | results. The [employer] | | | | | | [employer] of [employer] | | | | | | (ACC) recommends a | | | | | | decision limit of 0.06 | | | | | | ng/mL for this assay. | | | | | | Results greater than | | | | | | 0.06 can reflect a | | | | | | pre-infarct acute | | | | | | coronary syndrome, but | | | | | | can also reflect | | | | | | myocardial necrosis or | | | | | | injury that is not due | | | | | | to coronary artery | | | | | | disease. Some of these | | | | | | causes are sepsis, | | | | | | hypocolemia, atrial | | | | | | fibrillation, heart | | | | | | failure, pulmonary | | | | | | embolism, myocarditis, | | | | | | myocardial contusion, | | | | | | and renal failure. The | | | | | | diagnosis of myocardial | | | | | | infarction should be | | | | | | based on a combination | | | | | | of the patient's | | | | | | clinical presentation | | | | | | and the clinical | | | | | | laboratory test results | | | | | | (especially serial | | | | | | troponin levels). | | | | + + + + + + + + | Specimen | + + | Blood | + + + + + + + | Performing | Address | City/State/Zipcode | Phone Number | | Organization | | | | + + + + + | [facility] | [address] | [place] | [phone] | | [facility] | | [address] | | | - LABORATORY | | | | + + + + + CBC with Differential (07/28/2015 5:09 AM PDT) + + + + + + | Component | Value | Ref Range | Performed | Pathologist | | | | | At | Signature | + + + + + + | White Blood | 10.7 | 4.0 - 11.0 K/uL | [facility] | | | Cells | | | [facility] | | | | | | MEDICAL | | | | | | CENTER - | | | | | | LABORATORY | | + + + + + + | Red Blood | 3.92 | 3.70 - 5.20 | [facility] | | | Cells | | M/uL | [facility] | | | | | | MEDICAL | | | | | | CENTER - | | | | | | LABORATORY | | + + + + + + | Hemoglobin | 11.9 | 11.5 - 16.0 | [facility] | | | | | g/dL | [facility] | | | | | | MEDICAL | | | | | | CENTER - | | | | | | LABORATORY | | + + + + + + | Hematocrit | 35.8 | 34.0 - 47.0 % | [facility] | | | | | | [facility] | | | | | | [facility]ICAL | | | | | | CENTER - | | | | | | LABORATORY | | + + + + + + | MCV | 91.3 | 83.0 - 101.0 fL | [facility] | | | | | | [facility] | | | | | | [facility] | | | | | | CENTER - | | | | | | LABORATORY | | + + + + + + | MCH | 30.5 | 28.0 - 35.0 pg | [facility] | | | | | | [facility] | [facility] | [facility] | | | | | | CENTER - | | | | | | LABORATORY | | + + + + + + | MCHC | 33.4 | 32.0 - 36.0 | [facility] | | | | | g/dL | [facility] | | | | | | MEDICAL | | | | | | CENTER - | | | | | | LABORATORY | | + + + + + + | RDW-CV | 13.1 | <15.0 % | [facility] | | | | | | [facility] | | | | | | MEDICAL | | | | | | CENTER - | | | | | | LABORATORY | | + + + + + + | Platelet | 400 | 140 - 440 K/uL | [facility] | | | Count | | | [facility] | | | | | | MEDICAL | | | | | | CENTER - | | | | | | LABORATORY | | + + + + + + | MPV | 7.7 | fL | [facility] | | | | | | [facility] | | | | | | MEDICAL | | | | | | CENTER - | | | | | | LABORATORY | | + + + + + + | % | 63.5 | 45.0 - 82.0 % | [facility] | | | Neutrophils | | | [facility] | | | | | | MEDICAL | | | | | | CENTER - | | | | | | LABORATORY | | + + + + + + | % | 19.5 (L) | 20.0 - 45.0 % | [facility] | | | Lymphocytes | | | [facility] | | | | | | MEDICAL | | | | | | CENTER - | | | | | | LABORATORY | | + + + + + + | % Monocytes | 9.6 | 4.0 - 12.0 % | [facility] | | | | | | [facility] | | | | | | MEDICAL | | | | | | CENTER - | | | | | | LABORATORY | | + + + + + + | % | 6.3 (H) | 0.0 - 5.0 % | [facility] | | | Eosinophils | | | [facility] | | | | | | MEDICAL | | | | | | CENTER - | | | | | | LABORATORY | | + + + + + + | % Basophils | 1.1 (H) | 0.0 - 1.0 % | [facility] | | | | | | [facility] | | | | | | MEDICAL | | | | | | CENTER - | | | | | | LABORATORY | | + + + + + + | Absolute | 6.80 | 1.80 - 8.50 | [facility] | | | Neutrophils | | K/uL | [facility] | | | | | | MEDICAL | | | | | | CENTER - | | | | | | LABORATORY | | + + + + + + | Absolute | 2.10 | 0.60 - 3.20 | [facility] | | | Lymphocytes | | K/uL | [facility] | | | | | | MEDICAL | | | | | | CENTER - | | | | | | LABORATORY | | + + + + + + | Absolute | 1.00 | 0.00 - 1.00 | [facility] | | | Monocytes | | K/uL | [facility] | | | | | | MEDICAL | | | | | | CENTER - | | | | | | LABORATORY | | + + + + + + | Absolute | 0.70 (H) | 0.00 - 0.40 | [facility] | | | Eosinophils | | K/uL | [facility] | | | | | | MEDICAL | | | | | | CENTER - | | | | | | LABORATORY | | + + + + + + | Absolute | 0.10 | 0.00 - 0.10 | [facility] | [...] + | [facility] | [address] | [place] | [phone] | | [facility] | | [address] | | | - LABORATORY | | | | + + + + + Basic Metabolic Panel (07/28/2015 5:09 AM PDT) + + + + + + | Component | Value | Ref Range | Performed | Pathologist | | | | | At | Signature | + + + + + + | Na | 139 | 136 - 149 | [facility] | | | | | mmol/L | [facility] | | | | | | MEDICAL | | | | | | CENTER - | | | | | | LABORATORY | | + + + + + + | K | 3.9 | 3.5 - 5.1 | [facility] | [...] + + + | Anion Gap | 10 | 3 - 16 mmol/L | [facility] | | | | | | [facility] | | | | | | MEDICAL | | | | | | CENTER - | | | | | | LABORATORY | | + + + + + + | Glucose | 128 (H) | 70 - 109 mg/dL | [facility] | | | | | | [facility] | | | | | | [facility] | | | | | | CENTER - | | | | | | LABORATORY | | + + + + + + | BUN | 8 | 7 - 18 mg/dL | [facility] | | | | | | [facility] | | | | | | MEDICAL | | | | | | CENTER - | | | | | | LABORATORY | | + + + + + + | Creatinine | 0.66 | 0.60 - 1.30 | [facility] | | | | | mg/dL | [facility] | | | | | | [facility] | | | | | | CENTER - | | | | | | LABORATORY | | + + + + + + | eGFR, | >60Comment: GLOMERULAR | >=60 | [facility] | | | non- | FILTRATION | mL/min/1.73m2 | [facility] | | | [place] | RATE,ESTIMATED | | MEDICAL | | | | mL/min/1.25q1Azzq than | | CENTER - | | [...] + + + + | Calcium | 8.8 | 8.3 - 10.5 | [facility] | | | | | mg/dL | [facility] | | | | | | MEDICAL | | | | | | CENTER - | | | | | | LABORATORY | | + + + + + + | BUN/Creatin | 12.1 | | [facility] | | | ine Ratio | | | [facility] | | | | | | MEDICAL [...] [address] | [place] | [phone] | | [facility] | | [address] | | | - LABORATORY | | | | + + + + + CK Total (07/28/2015 5:09 AM PDT) + +-------+ + + + | Component | Value | Ref Range | Performed | Pathologist | | | | | At | Signature | + +-------+ + + + | CK TOTAL | 50 | 22 - 269 U/L | [facility] | | | | | | [facility] [address] | [place] | [phone] | | [facility] | | [address] | | | - LABORATORY | | | | + + + + + Troponin I (07/27/2015 11:05 PM PDT) + + + + + + | Component | Value | Ref Range | Performed | Pathologist | | | | | At | Signature | + + + + + + | Troponin I | 0.53 ()Comment: | <0.06 ng/mL | [facility] | | | | Reference | | [facility] | | | | Ranges:0.00-0.06 = | | MEDICAL | | | | NORMAL>0.06 = | | CENTER - | | | | SUSPICIOUS FOR | | LABORATORY | | | | MYOCARDIAL DAMAGE NOTE: | | | | | | Values greater than 0.50 | | | | | | ng/mL have been shown | | | | | | to be strongly | | | | | | associated with acute | | | | | | myocardial infarction. | | | | | | Consistent with previous | | | | | | results. The [employer] | | | | | | [employer] of [employer] | | | | | | (ACC) recommends a | | | | | | decision limit of 0.06 | | | | | | ng/mL for this assay. | | | | | | Results greater than | | | | | | 0.06 can reflect a | | | | | | pre-infarct acute | | | | | | coronary syndrome, but | | | | | | can also reflect | | | | | | myocardial necrosis or | | | | | | injury that is not due | | | | | | to coronary artery | | | | | | disease. Some of these | | | | | | causes are sepsis, | | | | | | hypocolemia, atrial | | | | | | fibrillation, heart | | | | | | failure, pulmonary | | | | | | embolism, myocarditis, | | | | | | myocardial contusion, | | | | | | and renal failure. The | | | | | | diagnosis of myocardial | | | | | | infarction should be | | | | | | based on a combination | | | | | | of the patient's | | | | | | clinical presentation | | | | | | and the clinical | | | | | | laboratory test results | | | | | | (especially serial | | | | | | troponin levels). | | | | + + + + + + + + | Specimen | + + | Blood | + + + + + + + | Performing | Address | City/State/Zipcode | Phone Number | | Organization | | | | + + + + + | [facility] | [address] | [place] | [phone] | | [facility] | | [address] | | | - LABORATORY | | | | + + + + + POC Glucose (07/27/2015 8:33 PM PDT) + +---------+ + + + | Component | Value | Ref Range | Performed | Pathologist | | | | | At | Signature | + +---------+ + + + | Glucose, | 236 (H) | 70 - 150 mg/dL | [facility] [...] [address] | [place] | [phone] | | [facility] | | [address] | | | - LABORATORY | | | | + + + + + POC Glucose (07/27/2015 5:34 PM PDT) + +-------+ + + + | Component | Value | Ref Range | Performed | Pathologist | | | | | At | Signature | + +-------+ + + + | Glucose, | 131 | 70 - 150 mg/dL | [facility] | | | POC [...] + | [facility] | [address] | [place] | [phone] | | [facility] | | [address] | | | - LABORATORY | | | | + + + + + Troponin I (07/27/2015 5:07 PM PDT) + + + + + + | Component | Value | Ref Range | Performed | Pathologist | | | | | At | Signature | + + + + + + | Troponin I | 0.61 ()Comment: | <0.06 ng/mL | [facility] | | | | Consistent with previous | | [facility] | | | | results. Reference | | MEDICAL | | | | Ranges:0.00-0.06 = | | CENTER - | | | | NORMAL>0.06 = | | LABORATORY | | | | SUSPICIOUS FOR | | | | | | MYOCARDIAL DAMAGE NOTE: | | | | | | Values greater than 0.50 | | | | | | ng/mL have been shown | | | | | | to be strongly | | | | | | associated with acute | | | | | | myocardial infarction. | | | | | | [employer] | | | | | | Cardiology (ACC) | | | | | | recommends a decision | | | | | | limit of 0.06 ng/mL for | | | | | | this assay. Results | | | | | | greater than 0.06 can | | | | | | reflect a pre-infarct | | | | | | acute coronary syndrome, | | | | | | but can also reflect | | | | | | myocardial necrosis or | | | | | | injury that is not due | | | | | | to coronary artery | | | | | | disease. Some of these | | | | | | causes are sepsis, | | | | | | hypocolemia, atrial | | | | | | fibrillation, heart | | | | | | failure, pulmonary | | | | | | embolism, myocarditis, | | | | | | myocardial contusion, | | | | | | and renal failure. The | | | | | | diagnosis of myocardial | | | | | | infarction should be | | | | | | based on a combination | | | | | | of the patient's | | | | | | clinical presentation | | | | | | and the clinical | | | | | | laboratory test results | | | | | | (especially serial | | | | | | troponin levels). | | | | + + + + + + + + | Specimen | + + | Blood | + + + + + + + | Performing | Address | City/State/Zipcode | Phone Number | | Organization | | | | + + + + + | [facility] | [address] | [place] | [phone] | | [facility] | | [address] | | | - LABORATORY | | | | + + + + + ECG 12 lead (07/27/2015 1:18 PM PDT) + + + + + + | Component | Value | Ref Range | Performed | Pathologist | | | | | At | Signature | + + + + + + | VENTRICULAR | 71 | BPM | [facility] | | | RATE EKG | | | | | + + + + + + | ATRIAL RATE | 71 | BPM | [facility] | | + + + + + + | P-R | 174 | ms | [facility] | | | INTERVAL | | | | | + + + + + + | QRS | 72 | ms | [facility] | | | DURATION | | | | | + + + + + + | Q-T | 398 | ms | [facility] | | | INTERVAL | | | | | + + + + + + | Q-T | 432 | ms | [facility] | | | INTERVAL | | | | | | (CORRECTED) | | | | | + + + + + + | P WAVE AXIS | 83 | degrees | [facility] | | + + + + + + | QRS AXIS | 81 | degrees | [facility] | | + + + + + + | T AXIS | 72 | degrees | [facility] | | + + + + + + | INTERPRETAT | Normal sinus | | [facility] | | | ION TEXT | rhythmNormal ECGWhen | | | | | | compared with ECG of | | | | | | 26-JUL-2015 18:39,No | | | | | | significant change was | | | | | | foundConfirmed by | | | | | | NATHANAEL AGOSTO MD ([id number]) | | | | | | on 07/28/2015 8:54:23 AM | | | | + + [...] | + +---------+ + + POC Glucose (07/27/2015 11:59 AM PDT) + +-------+ + + + | Component | Value | Ref Range | Performed | Pathologist | | | | | At | Signature | + +-------+ + + + | Glucose, | 116 | 70 - 150 mg/dL | [facility] | | | POC | | | [facility] | | | | | | [...] [address] | [place] | [phone] | | [facility] | | [address] | | | - LABORATORY | | | | + + + + + Lipid Panel (07/27/2015 11:56 AM PDT) + + + + + + | Component | Value | Ref Range | Performed | Pathologist | | | | | At | Signature | + + + + + + | Triglycerid | 68 | 35 - 160 mg/dL | [facility] | | | es | | | [facility] | | | | | | MEDICAL | | | | | | CENTER - | | | | | | LABORATORY | | + + + + + + | Cholesterol | 178 | 150 - 200 mg/dL | [facility] | | | | | | [facility] | | | | | | MEDICAL | | | | | | CENTER - | | | | | | LABORATORY | | + + + + + + | HDL | 56Comment: New HDL | 28 - 83 mg/dL | [facility] | | | | Reference Range as of | | [facility] | | | | January 03, 2015 | | MEDICAL | | | | Values may be 10-20% | | CENTER - | | | | lower with new, | | LABORATORY | | | | standardized method. | | | | + + + + + + | Chol/HDL | 3.2 | | [facility] | | | Ratio | | | [facility] | | | | | | MEDICAL | | | | | | CENTER - | | | | | | LABORATORY | | + + + + + + | LDL, | 108 | <=130 mg/dL | [facility] | | | Calculated | | | [facility] | | [...] + | [facility] | [address] | [place] | [phone] | | [facility] | | [address] | | | - LABORATORY | | | | + + + + + Troponin I (07/27/2015 11:56 AM PDT) + + + + + + | Component | Value | Ref Range | Performed | Pathologist | | | | | At | Signature | + + + + + + | Troponin I | 0.65 ()Comment: | <0.06 ng/mL | [facility] | | | | Reference | | [facility] | | | | Ranges:0.00-0.06 = | | MEDICAL | | | | NORMAL>0.06 = | | CENTER - | | | | SUSPICIOUS FOR | | LABORATORY | | | | MYOCARDIAL DAMAGE NOTE: | | | | | | Values greater than 0.50 | | | | | | ng/mL have been shown | | | | | | to be strongly | | | | | | associated with acute | | | | | | myocardial infarction. | | | | | | The [employer] | | | | | | Cardiology (ACC) | | | | | | recommends a decision | | | | | | limit of 0.06 ng/mL for | | | | | | this assay. Results | | | | | | greater than 0.06 can | | | | | | reflect a pre-infarct | | | | | | acute coronary syndrome, | | | | | | but can also reflect | | | | | | myocardial necrosis or | | | | | | injury that is not due | | | | | | to coronary artery | | | | | | disease. Some of these | | | | | | causes are sepsis, | | | | | | hypocolemia, atrial | | | | | | fibrillation, heart | | | | | | failure, pulmonary | | | | | | embolism, myocarditis, | | | | | | myocardial contusion, | | | | | | and renal failure. The | | | | | | diagnosis of myocardial | | | | | | infarction should be | | | | | | based on a combination | | | | | | of the patient's | | | | | | clinical presentation | | | | | | and the clinical | | | | | | laboratory test results | | | | | | (especially serial | | | | | | troponin levels). | | | | | | Consistent with previous | | | | | | results. | | | | + + + + + + + + | Specimen | + + | Blood | + + + + + + + | Performing | Address | City/State/Zipcode | Phone Number | | Organization | | | | + + + + + | [facility] | 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 Indications: | | | Done during a non-ST elevation myocardial infarction DESCRIPTION | | | OF PROCEDURE: Informed consent was obtained from the patient, and | | | a time-out was performed to verify the patient's identification and | | | planned procedure. The patient's right wrist was then prepped and | | | draped in the usual sterile fashion, and anesthetized with 2 mL of | | | buffered 1% lidocaine. For arterial access modified Seldinger | | | technique was used to place a 6 Fr. sheath in the right radial | | | artery (a normal Merrill's test was performed prior to the procedure). | | | Right heart catheterization was not performed on this patient. | | | After crossing the aortic valve, left ventriculography was not | | | performed. Selective coronary angiogram was then performed in | | | several sagittal and oblique projections. TIG 4 diagnostic catheters | | | were used for this procedure. The patient received a total of 1 | | | mg of Versed and 50 mcg of fentanyl intravenously for conscious | | | sedation during the procedure. A total of 180 mL Omnipaque 350 | | | contrast was utilized. The procedure had no immediate | | | complications. At the conclusion of the procedure, the sheath | | | was removed and hemostasis obtained with a TR hemostatic band. | | | FINDINGS: Hemodynamics: Ao - 173/60 mm Hg with a mean of 86 | | | mm Hg LV - 173/13 mm Hg LVEDP 13mm Hg Left ventriculography: Not | | | performed. Left main artery: The left main artery is a medium | | | caliber vessel that bifurcates into the left anterior descending | | | artery and left circumflex artery. Left main artery has is free of | | | disease. Left anterior descending artery: The left anterior | | | descending artery is a large caliber vessel that wraps around the | | | apex and gives rise to 2 diagonal branches. The vessel has | | | moderate diffuse plaquing with 40 % tubular stenosis on its mid | | | segment. It gives rise to 2 diagonal branches that have normal | | | appearence. Left circumflex artery: The left circumflex artery is a | | | large caliber vessel that is non dominant. The vessel has mild | | | diffuse disease with 2 large OMB branches, OMB2 has 90% stenosis on | | | its mid segment . It gives rise to 2 obtuse marginal branches that | | | have mild disease except for the OMB 2 that has 90% stenosis on its | | | mid segment which is responsible for presentation.. Right coronary | | | artery: The right coronary artery is a medium caliber vessel that | | | is dominant. The vessel has moderate diffuse plaquing with 50% | | | stenosis on its mid segment , large acute margina lbranch has 90% | | | stenosis on its mid segment.. It gives rise to a PDA and small PL | | | branches. CONCLUSIONS: 1. Moderate obstructive coronary | | | artery disease with 90% stenosi of the mid OMB2 2. There is a right | | | dominate circulation. 3. Normal LV systolic function with an EF of | | | 70% 4. Systemic blood pressure is mildly elevated. 5. There was | | | successful hemostasis with a TR hemostatic band. 6. NSTEMI due to | | | subtotal occlusion of the OMB2. PLAN: 1. Coronary | | | revascularization with PCI. 2. FFR to the mid RCA. PROCEDURE | | | #2 PROCEDURES: 1- PCI to the OMB2 2- FFR to the mid RCA. | | | PROCEDURE: Once decision to perform percutaneous coronary | | | intervention was made, we obtained an ACT, and proceeded to | | | administer 70 units per kilogram of heparin IV, minimally exchanged | | | TIG4 catheter for 6 fr LBU 3.0 guide catheter, properly flushed, | | | and proceeded to perform selective cannulation of the LCA, obtain | | | initial angiogram and use a BMW wire to cross lesion in the | | | predilated condition with a 2.5 x12 mm SQ balloon, at 8 ATMs with | | | excellent results, then the use of 2.5 x 12 Promus deployed at 12 ATMs | | | without any complications, the administer 100 g of nitroglycerin | | | intracoronary, perform final angiograms which come from excellent | | | stent expansion no edge dissections nor perforations, at this point | | | we removed the wire and catheter was exchanged over a wire and used | | | a 6 [place] [employer] JR4 guide catheter and perform selective cannulation of | | | the RCA use a pressure wire which was zeroed and normalized prior to | | | get baseline pressure ratio and then used to cross the lesion and | | | baseline pressure ratio was 0.95, then we'll start of the adenosine | | | infusion at 140 mcg/kg/min for 2 minutes we obtained FFR which was | | | 0.86 at this point we will stopped adenosine, perform angiogram | | | which confirmed no dissections or complications, with normal wall | | | catheters and wires and flushed sheath and administer 200 g of | | | nitroglycerin and 100 g of Cardene then proceeded to remove TR band, | | | patent hemostasis was verified. CONCLUSIONS: 1- non-ST | | | elevation myocardial infarction secondary to subtotal occlusion of | | | the OMB 2 status post precipitous coronary intervention with a 2.5 | | | 12 mm PROMUS IGNACIA. 2- negative FFR to the mid RCA.with an FFR: 0.86 | | | 3- nonobstructive coronary artery disease in the LAD territory. | | | Recommendations: -Continue dual antiplatelet therapy. - | | | Statins. - Transferred to the ICU. - I recommend to add IMDUR to | | | management residual CAD in a acute marginal branch from RCA. | | | | | | at 13:14 PRIMARY CARE PROVIDER: Ole Madden, | | | DO | | + + + + +---------+ + + | Performing | Address | City/State/Zipcode | Phone Number | | Organization | | | | + +---------+ + + | [facility] | | | | + +---------+ + + POC ACT (07/27/2015 11:08 AM PDT) + +---------+ + + + | Component | Value | Ref Range | Performed | Pathologist | | | | | At | Signature | + +---------+ + + + | Activated | 271 (H) | 125 - 175 | [facility] | | | Clotting | | second(s) | [facility] | | | Time, POC | | | MEDICAL | | | [...] ST. | [address] | [place] | [phone] | | [facility] | | [address] | | | - LABORATORY | | | | + + + + + POC ACT (07/27/2015 10:25 AM PDT) + +---------+ + + + | Component | Value | Ref Range | Performed | Pathologist | | | | | At | Signature | + +---------+ + + + | Activated | 187 (H) | 125 - 175 | [facility] | | | Clotting | | second(s) | [facility] | | | Time, POC | | | MEDICAL | | | [...] + | [facility] | [address] | [place] | [phone] | | [facility] | | [address] | | | - LABORATORY | | | | + + + + + PTT (07/27/2015 5:15 AM PDT) + + + + + + | Component | Value | Ref Range | Performed | Pathologist | | | | | At | Signature | + + + + + + | aPTT | 104 (HH)Comment: | 22 - 36 seconds | [facility] | | | | Critical Result called | | [facility] | | | | to and read back by | | MEDICAL | | | | Isadora Ocampo RN on | | CENTER - | | | | 07/27/2015 at 6:56 by Eduardo | | LABORATORY | | | | Enrique Palacios. | | | | + + + + + + + + | Specimen | + + | Blood | + + + + + + + | Performing | Address | City/State/Zipcode | Phone Number | | Organization | | | | + + + + + | [facility] | [address] | [place] | [phone] | | [facility] | | [address] | | | - LABORATORY | | | | + + + + + Troponin I (07/27/2015 5:15 AM PDT) + + + + + + | Component | Value | Ref Range | Performed | Pathologist | | | | | At | Signature | + + + + + + | Troponin I | 1.04 ()Comment: | <0.06 ng/mL | [facility] | | | | Reference | | [facility] | | | | Ranges:0.00-0.06 = | | MEDICAL | | | | NORMAL>0.06 = | | CENTER - | | | | SUSPICIOUS FOR | | LABORATORY | | | | MYOCARDIAL DAMAGE NOTE: | | | | | | Values greater than 0.50 | | | | | | ng/mL have been shown | | | | | | to be strongly | | | | | | associated with acute | | | | | | myocardial infarction. | | | | | | The [employer] | | | | | | Cardiology (ACC) | | | | | | recommends a decision | | | | | | limit of 0.06 ng/mL for | | | | | | this assay. Results | | | | | | greater than 0.06 can | | | | | | reflect a pre-infarct | | | | | | acute coronary syndrome, | | | | | | but can also reflect | | | | | | myocardial necrosis or | | | | | | injury that is not due | | | | | | to coronary artery | | | | | | disease. Some of these | | | | | | causes are sepsis, | | | | | | hypocolemia, atrial | | | | | | fibrillation, heart | | | | | | failure, pulmonary | | | | | | embolism, myocarditis, | | | | | | myocardial contusion, | | | | | | and renal failure. The | | | | | | diagnosis of myocardial | | | | | | infarction should be | | | | | | based on a combination | | | | | | of the patient's | | | | | | clinical presentation | | | | | | and the clinical | | | | | | laboratory test results | | | | | | (especially serial | | | | | | troponin levels). | | | | | | Consistent with previous | | | | | | results. | | | | + + + + + + + + | Specimen | + + | Blood | + + + + + + + | Performing | Address | City/State/Zipcode | Phone Number | | Organization | | | | + + + + + | [facility] | [address] | [place] | [phone] | | [facility] | | [address] | | | - LABORATORY | | | | + + + + + CBC with Differential (07/27/2015 5:15 AM PDT) + + + + + + | Component | Value | Ref Range | Performed | Pathologist | | | | | At | Signature | + + + + + + | White Blood | 10.6 | 4.0 - 11.0 K/uL | [facility] | | | Cells | | | [facility] | | | | | | MEDICAL | | | | | | CENTER - | | | | | | LABORATORY | | + + + + + + | Red Blood | 4.12 | 3.70 - 5.20 | [facility] | | | Cells | | M/uL | [facility] | | | | | | MEDICAL | | | | | | CENTER - | | | | | | LABORATORY | | + + + + + + | Hemoglobin | 12.5 | 11.5 - 16.0 | [facility] | | | | | g/dL | [facility] | | | | | | MEDICAL | | | | | | CENTER - | | | | | | LABORATORY | | + + + + + + | Hematocrit | 37.7 | 34.0 - 47.0 % | [facility] | | | | | | [facility] | | | | | | MEDICAL | | | | | | CENTER - | | | | | | LABORATORY | | + + + + + + | MCV | 91.6 | 83.0 - 101.0 fL | [facility] | | | | | | [facility] | | | | | | MEDICAL | | | | | | CENTER - | | | | | | LABORATORY | | + + + + + + | MCH | 30.4 | 28.0 - 35.0 pg | [facility] | | | | | | [facility] | | | | | | MEDICAL | | | | | | CENTER - | | | | | | LABORATORY | | + + + + + + | MCHC | 33.2 | 32.0 - 36.0 | [facility] | | | | | g/dL | [facility] | | | | | | MEDICAL | | | | | | CENTER - | | | | | | LABORATORY | | + + + + + + | RDW-CV | 13.3 | <15.0 % | [facility] | | | | | | [facility] | | | | | | MEDICAL | | | | | | CENTER - | | | | | | LABORATORY | | + + + + + + | Platelet | 376 | 140 - 440 K/uL | [facility] [...] + + + + | % | 57.3 | 45.0 - 82.0 % | [facility] | | | Neutrophils | | | [facility] | | | | | | MEDICAL | | | | | | CENTER - | | | | | | LABORATORY | | + + + + + + | % | 26.5 | 20.0 - 45.0 % | [facility] | | | Lymphocytes | | | [facility] | | | | | | MEDICAL | | | | | | CENTER - | | | | | | LABORATORY | | + + + + + + | % Monocytes | 9.0 | 4.0 - 12.0 % | [facility] | | | | | | [facility] | | | | | | MEDICAL | | | | | | CENTER - | | | | | | LABORATORY | | + + + + + + | % | 6.2 (H) | 0.0 - 5.0 % | [facility] | | | Eosinophils | | | [facility] | | | | | | MEDICAL | | | | | | CENTER - | | | | | | LABORATORY | | + + + + + + | % Basophils | 1.0 | 0.0 - 1.0 % | [facility] | | | | | | [facility] | | | | | | MEDICAL | | | | | | CENTER - | | | | | | LABORATORY | | + + + + + + | Absolute | 6.10 | 1.80 - 8.50 | [facility] | | | Neutrophils | | K/uL | [facility] | | | | | | MEDICAL | | | | | | CENTER - | | | | | | LABORATORY | | + + + + + + | Absolute | 2.80 | 0.60 - 3.20 | [facility] | | | Lymphocytes | | K/uL | [facility] | | | | | | MEDICAL | | | | | | CENTER - | | | | | | LABORATORY | | + + + + + + | Absolute | 1.00 | 0.00 - 1.00 | [facility] | | | Monocytes | | K/uL | [facility] | | | | | | MEDICAL | | | | | | CENTER - | | | | | | LABORATORY | | + + + + + + | Absolute | 0.70 (H) | 0.00 - 0.40 | [facility] | | | Eosinophils | | K/uL | [facility] | | | | | | MEDICAL | | | | | | CENTER - | | | | | | LABORATORY | | + + + + + + | Absolute | 0.10 | 0.00 - 0.10 | [facility] | [...] [address] | [place] | [phone] | | [facility] | | [address] | | | - LABORATORY | | | | + + + + + Basic Metabolic Panel (07/27/2015 5:15 AM PDT) + + + + + + | Component | Value | Ref Range | Performed | Pathologist | | | | | At | Signature | + + + + + + | Na | 136 | 136 - 149 | [facility] | | | | | mmol/L | [facility] | | | | | | MEDICAL | | | | | | CENTER - | | | | | | LABORATORY | | + + + + + + | K | 3.8 | 3.5 - 5.1 | [facility] | | | | | mmol/L | [facility] | | | | | | MEDICAL | | | | | | CENTER - | | | | | | LABORATORY | | + + + + + + | Cl | 102 | 98 - 109 mmol/L | [facility] [...] + + + | Anion Gap | 8 | 3 - 16 mmol/L | [facility] | | | | | | [facility] | | | | | | MEDICAL | | | | | | CENTER - | | | | | | LABORATORY | | + + + + + + | Glucose | 130 (H) | 70 - 109 mg/dL | [facility] | | | | | | [facility] | | | | | | MEDICAL | | | | | | CENTER - | | | | | | LABORATORY | | + + + + + + | BUN | 12 | 7 - 18 mg/dL | [place] | | | | | | [facility] | | | | | | MEDICAL | | | | | | CENTER - | | | | | | LABORATORY | | + + + + + + | Creatinine | 0.64 | 0.60 - 1.30 | [facility] | | | | | mg/dL | [facility] | | | | | | MEDICAL | | | | | | CENTER - | | | | | | LABORATORY | | + + + + + + | eGFR, | >60Comment: GLOMERULAR | >=60 | [facility] | | | non- | FILTRATION | mL/min/1.73m2 | [facility] | | | Serbian | RATE,ESTIMATED | | MEDICAL | | | | mL/min/1.87o7Cjbh than | | CENTER - | | [...] + + + + | Calcium | 8.5 | 8.3 - 10.5 | [facility] | | | | | mg/dL | [facility] | | | | | | MEDICAL | | | | | | CENTER - | | | | | | LABORATORY | | + + + + + + | BUN/Creatin | 18.8 | | [facility] | | | ine [...] + | [facility] | [address] | [place] | [phone] | | [facility] | | [address] | | | - LABORATORY | | | | + + + + + Magnesium (07/27/2015 5:15 AM PDT) + +-------+ + + + | Component | Value | Ref Range | Performed | Pathologist | | | | | At | Signature | + +-------+ + + + | Magnesium | 1.8 | 1.8 - 2.5 mg/dL | [facility] | | | | | | [facility] | | | | | | [...] + + + + + | [facility] | [address] | [place] | [phone] | | [facility] | | [address] | | | - LABORATORY | | | | + + + + + Troponin I (07/26/2015 10:56 PM PDT) + + + + + + | Component | Value | Ref Range | Performed | Pathologist | | | | | At | Signature | + + + + + + | Troponin I | 1.57 ()Comment: | <0.06 ng/mL | [facility] | | | | Reference | | [facility] | | | | Ranges:0.00-0.06 = | | MEDICAL | | | | NORMAL>0.06 = | | CENTER - | | | | SUSPICIOUS FOR | | LABORATORY | | | | MYOCARDIAL DAMAGE NOTE: | | | | | | Values greater than 0.50 | | | | | | ng/mL have been shown | | | | | | to be strongly | | | | | | associated with acute | | | | | | myocardial infarction. | | | | | | Critical Result called | | | | | | to and read back by | | | | | | Isadora Ocampo on | | | | | | 07/26/2015 at 23:41 by | | | | | | Carlos Nathan. The | | | | | | [employer] | | | | | | Cardiology (ACC) | | | | | | recommends a decision | | | | | | limit of 0.06 ng/mL for | | | | | | this assay. Results | | | | | | greater than 0.06 can | | | | | | reflect a pre-infarct | | | | | | acute coronary syndrome, | | | | | | but can also reflect | | | | | | myocardial necrosis or | | | | | | injury that is not due | | | | | | to coronary artery | | | | | | disease. Some of these | | | | | | causes are sepsis, | | | | | | hypocolemia, atrial | | | | | | fibrillation, heart | | | | | | failure, pulmonary | | | | | | embolism, myocarditis, | | | | | | myocardial contusion, | | | | | | and renal failure. The | | | | | | diagnosis of myocardial | | | | | | infarction should be | | | | | | based on a combination | | | | | | of the patient's | | | | | | clinical presentation | | | | | | and the clinical | | | | | | laboratory test results | | | | | | (especially serial | | | | | | troponin levels). | | | | + + + + + + + + | Specimen | + + | Blood | + + + + + + + | Performing | Address | City/State/Zipcode | Phone Number | | Organization | | | | + + + + + | [facility] | [address] | [place] | [phone] | | [facility] | | [address] | | | - LABORATORY | | | | + + + + + PTT (07/26/2015 9:55 PM PDT) + +-------+ + + + | Component | Value | Ref Range | Performed | Pathologist | | | | | At | Signature | + +-------+ + + + | aPTT | 33 | 22 - 36 seconds | [facility] | | | | | [...] + | [facility] | [address] | [place] | [phone] | | [facility] | | [address] | | | - LABORATORY | | | | + + + + + Protime INR (07/26/2015 9:55 PM PDT) + + + + + + | Component | Value | Ref Range | Performed | Pathologist | | | | | At | Signature | + + + + + + | Prothrombin | 13.9 | 11.3 - 13.9 | [facility] | | | Time | | seconds | [facility] | | | | | | MEDICAL | | | | | | CENTER - | | | | | | LABORATORY | | + + + + + + | INR | 1.02Comment: Usual Oral | 0.90 - 1.10 | [facility] | | | | Anticoagulation Range: | | [facility] | | | | 2.0 - 3.0High | | MEDICAL | | | | Level Oral | | CENTER - | [...] + | [facility] | [address] | [place] | [phone] | | [facility] | | [id number] | | | - LABORATORY | | | | + + + + + POC Glucose (07/26/2015 8:27 PM PDT) + +---------+ + + + | Component | Value | Ref Range | Performed | Pathologist | | | | | At | Signature | + +---------+ + + + | Glucose, | 168 (H) | 70 - 150 mg/dL | [facility] [...] [address] | [place] | [phone] | | [facility] | | [id number] | | | - LABORATORY | | | | + + + + + ECHO Complete (07/26/2015 8:20 PM PDT) + + | Specimen | + + | | + + + + + | Narrative | Performed At | + + + | [facility] ECHOCARDIOGRAM REPORT | | | STUDY DATE: 07/26/2015 PATIENT NAME: Le Rollins : | | | 1945 PCP: Ole Madden DO | | | CLINICAL HISTORY/DIAGNOSIS: MURMUR, ELEVATED TROPONIN A | | | transthoracic echocardiogram with M-mode, pulsed-wave and color | | | Doppler was performed with standard views obtained. The technical | | | quality of this examination is adequate. The heart rhythm during | | | the echo is normal with heart rate in the 70s. The M-mode, | | | two-dimensional, color flow and spectral Doppler data were reviewed | | | and support the following interpretation: Interpretation: Left | | | Atrium: Left atrial size is normal. Left ventricle: Left | | | ventricular size is normal with normal wall thickness and motion, | | | and normal left ventricular systolic function. The estimated | | | ejection fraction is 70%. Grade 1 left ventricular diastolic | | | dysfunction. Aortic root: Aortic root is normal. Right Atrium: | | | Right atrial sizes normal. Right ventricle: Right ventricular | | | size is normal with normal wall thickness and normal right | | | ventricular systolic function. Pericardium: Pericardium is normal. | | | Pulmonary artery: Pulmonary artery is normal. Aortic valve: | | | Physical mildly sclerotic probable trileaflet valve with mild to | | | moderate stenosis and mild insufficiency. Peak velocities measured | | | at 3 m/s with mean/peak gradients of 21/36 mmHg respectively. Mitral | | | valve: Mitral valve is normal. Pulmonic valve: Pulmonic valve is | | | normal. Tricuspid valve: Normal with mild insufficiency and peak | | | velocity consistent with RVSP 41-46 mmHg. Vena cava: The inferior | | | vena cava is normal. There is greater than 50% inspiratory | | | collapse of the IVC. IMPRESSIONS: 1. Normal LV size and | | | systolic function with LVEF 70%. 2. Aortic valve sclerosis with | | | mild to moderate stenosis and mild insufficiency. 3. Mild | | | pulmonary systolic hypertension. 4. Compared to patient's prior | | | study of one year ago, no significant changes are noted. | | | Measurements: Height: 65 Weight: 160 Aortic root: 29 mm Aortic | | | cusp sep: 4 mm LA: 27 mm IVS-diastole: 9 mm IVS-systole: | | | 10 mm LVPW diastole: 10 mm LVPW systole: 13 mm LV | | | diameter-diastole: 41 mm LV diameter-systole: 33 mm Fractional | | | shortenin % PFV aortic valve: 3.01 m/s MPG mitral valve: | | | mmHg PFV TR jet: 3.01 m/s RA/RV PP mmHg LA volume: 33 | | | mL LA index: 19 mL/m2 Mitral Inflow DT: 425 ms IVRT: 128 ms | | | Valsalva: Not needed PWDTI S wave: 7.5 cm/s PWDTI E wave: 6.4 | | | cm/s PWDTI A wave: 10.6 cm/s E/A Ratio: 0.604 E/E Ratio: | | | 10.56 Signed by: Macy Muro MD PhD [facility] | | | 07/26/2015 20:21 Call Center Director: Rajat Leon, RDCS, | | | RVT, RDMS | | + + + ECG 12 lead (07/26/2015 6:39 PM PDT) + + + + + + | Component | Value | Ref Range | Performed | Pathologist | | | | | At | Signature | + + + + + + | VENTRICULAR | 72 | BPM | [facility] | | | RATE EKG | | | | | + + + + + + | ATRIAL RATE | 72 | BPM | [facility] | | + + + + + + | P-R | 168 | ms | [facility] | | | INTERVAL | | | | | + + + + + + | QRS | 76 | ms | [facility] | | | DURATION | | | | | + + + + + + | Q-T | 406 | ms | [facility] | | | INTERVAL | | | | | + + + + + + | Q-T | 444 | ms | [facility] | | | INTERVAL | | | | | | (CORRECTED) | | | | | + + + + + + | P WAVE AXIS | 56 | degrees | [facility] | | + + + + + + | QRS AXIS | 38 | degrees | [facility] | | + + + + + + | T AXIS | 43 | degrees | [facility] | | + + + + + + | INTERPRETAT | Normal sinus | | [facility] | | | ION TEXT | rhythmNormal ECGWhen | | | | | | compared with ECG of | | | | | | 26-JUL-2015 17:28, | | | | | | (Unconfirmed)No | | | | | | significant change was | | | | | | foundConfirmed by | | | | | | NATHANAEL AGOSTO MD ([id number]) | | | | | | on 07/26/2015 8:40:19 PM | | | | + + + [...] | | | + +---------+ + + ECG 12 lead (07/26/2015 5:28 PM PDT) + + + + + + | Component | Value | Ref Range | Performed | Pathologist | | | | | At | Signature | + + + + + + | VENTRICULAR | 70 | BPM | [facility] | | | RATE EKG | | | | | + + + + + + | ATRIAL RATE | 70 | BPM | [facility] | | + + + + + + | P-R | 162 | ms | [facility] | | | INTERVAL | | | | | + + + + + + | QRS | 76 | ms | [facility] | | | DURATION | | | | | + + + + + + | Q-T | 418 | ms | [facility] | | | INTERVAL | | | | | + + + + + + | Q-T | 451 | ms | [facility] | | | INTERVAL | | | | | | (CORRECTED) | | | | | + + + + + + | P WAVE AXIS | 54 | degrees | [facility] | | + + + + + + | QRS AXIS | 40 | degrees | [facility] | | + + + + + + | T AXIS | 42 | degrees | [facility] | | + + + + + + | INTERPRETAT | Normal sinus | | [facility] | | | ION TEXT | rhythmSeptal infarct , | | | | | | age undeterminedAbnormal | | | | | | ECGNo previous ECGs | | | | | | availableConfirmed by | | | | | | NATHANAEL AGOSTO MD ([id number]) | | | | | | on 07/26/2015 8:39:57 PM | | | | + + + [...] | | | + +---------+ + + Troponin I (07/26/2015 5:15 PM PDT) + + + + + + | Component | Value | Ref Range | Performed | Pathologist | | | | | At | Signature | + + + + + + | Troponin I | 1.08 ()Comment: | <0.06 ng/mL | [facility] | | | | Reference | | [facility] | | | | Ranges:0.00-0.06 = | | MEDICAL | | | | NORMAL>0.06 = | | CENTER - | | | | SUSPICIOUS FOR | | LABORATORY | | | | MYOCARDIAL DAMAGE NOTE: | | | | | | Values greater than 0.50 | | | | | | ng/mL have been shown | | | | | | to be strongly | | | | | | associated with acute | | | | | | myocardial infarction. | | | | | | The [employer] | | | | | | Cardiology (ACC) | | | | | | recommends a decision | | | | | | limit of 0.06 ng/mL for | | | | | | this assay. Results | | | | | | greater than 0.06 can | | | | | | reflect a pre-infarct | | | | | | acute coronary syndrome, | | | | | | but can also reflect | | | | | | myocardial necrosis or | | | | | | injury that is not due | | | | | | to coronary artery | | | | | | disease. Some of these | | | | | | causes are sepsis, | | | | | | hypocolemia, atrial | | | | | | fibrillation, heart | | | | | | failure, pulmonary | | | | | | embolism, myocarditis, | | | | | | myocardial contusion, | | | | | | and renal failure. The | | | | | | diagnosis of myocardial | | | | | | infarction should be | | | | | | based on a combination | | | | | | of the patient's | | | | | | clinical presentation | | | | | | and the clinical | | | | | | laboratory test results | | | | | | (especially serial | | | | | | troponin levels). | | | | + + + + + + | Comment | Comment: Critical Result | | [facility] | | | | called to and read back | | [facility] | | | | by TANYA King/SOO | | MEDICAL | | | | on 07/26/2015 at 18:02 by | | [place] - | | | | Elian Olson. | | LABORATORY | | | | | | | [...] [address] | [place] | [phone] | | [facility] | | [address] | | | - LABORATORY | | | | + + + + + Culture, MRSA (07/26/2015 3:25 PM PDT) + + + + + + | Component | Value | Ref Range | Performed | Pathologist | | | | | At | Signature | + + + + + + | Culture | Negative for MRSA by | | [facility] | | | | chromogenic agar method | | [facility] | | | | | | MEDICAL | | | | | | CENTER - | | | | | | LABORATORY | | + + + + + + + + | Specimen | + + | Respiratory - Both | | anterior nares (body | | structure) | + + + + + + + | Performing | Address | City/State/Zipcode | Phone Number | | Organization | | | | + + + + + | [facility] | [address] | [place] | [phone] | | [facility] | | [address] | | | - LABORATORY | | | | + + + + + LVEF VALUE (07/26/2015) + +-------+ + + + | Component [...]
--- OUTSIDE RECORDS SUMMARY | ~2020-02-03 | XMS | Encounter Summary ---
Demographics + + + | Address | [address] | | | [place] [address] | + + + | Home Phone | | + + + | Preferred Language | Unknown | + + + | Marital Status | Single | + + + | Cheondoism Affiliation | 1013 | + + + | Race | White | + + + | Ethnic Group | Not or | + + + Author + + + | Author | [facility] | | | and [place] | + + + | Organization | [facility] | | [...] Team Providers + +------+ + | Care Boarder Steam Name | Role | Phone | + +------+ + | Wilson Lin MD | PCP | | + +------+ + Encounter Details +--------+ + + + + | Date | Type | Department | Care Team | Description | +--------+ + + + + | 07/31/ | Orders Only | [facility] [place] | Maryan Velasquez, | Essential | | 2016 | | CARDIOLOGY [address] | MD [address] | hypertension | | | | [place], | [place], [place] | (Primary Dx); Aortic | | | | [place] [address] | [address] | valve stenosis, | | | | [phone] | | etiology of cardiac | | | | | | valve disease | | | | | | unspecified; | | | | | | Congestive heart | | | | | | failure, unspecified | | | | | | congestive heart | | | | | | failure chronicity, | | | | | | unspecified | | | | | | congestive heart | | | | | | failure type (HCC) | +--------+ + + + + Social [...] + | Diagnosis | + + | Essential hypertension - Primary Unspecified essential hypertension | + + | Aortic valve stenosis, etiology of cardiac valve disease unspecified | + + | Congestive heart failure, unspecified congestive heart failure chronicity, unspecified | | congestive heart failure type | + + documented in this encounter"
--- OUTSIDE RECORDS SUMMARY | ~2020-02-03 | XMS | Encounter Summary ---
Demographics + + + | Address | [address] | | | [place] [address] | + + + | Home Phone | | + + + | Preferred Language | Unknown | + + + | Marital Status | Single | + + + | Worship Affiliation | 1013 | + + + | Race | White | + + + | Ethnic Group | Not or | + + + Author + + + | Author | [facility] | | | and [place] | + + + | Organization | [facility] | | [...] Team Providers + +------+ + | Care Merchandise Coordinator Name | Role | Phone | + +------+ + | Ole Madden DO | PCP | | + +------+ + Reason for Visit +--------+ + | Reason | Comments | +--------+ + | Other | sleep results | +--------+ + Encounter Details +--------+---------+ + + + | Date | Type | Department | Care Team | Description | +--------+---------+ + + + | 02/26/ | Office | [facility] | Marck Brar | NEHEMIAH (obstructive | | 2015 | Visit | SLEEP DISORDER [address] | [address] [place] [address] | sleep apnea) | | | | [address] | [address] [place] | (Primary Dx) | | | | [place] [address] | [place] [address] | | | | | [phone] | [phone] | | | | | | | | +--------+---------+ + + + [...] + + + | Blood Pressure | 162/72 | 02/26/2015 1:11 PM | | | | | PST | | + + + + + | Pulse | 68 | 02/26/2015 1:11 PM | | | | | PST | | + + + + + | Temperature | - | - | | + + + + + | Respiratory Rate | 16 | 02/26/2015 1:11 PM | | | | | PST | | + + + + + | Oxygen Saturation | 98% | 02/26/2015 1:11 PM | | | | | PST | | + + + + + | Inhaled Oxygen | - | - | | | Concentration | | | | + + + + + | Weight | 74.2 kg (163 lb 9.6 | 02/26/2015 1:11 PM | | | | oz) | PST | | + + + + + | Height | - | - | | + + + + + | Body Mass Index | 27.22 | 01/17/2015 10:56 AM | | | | | PDT | | + + + + + documented in this encounter Progress Notes Marck Brar Jr., MD - 02/26/2015 1:29 PM PSTThe patient comes in for follow-up after undergoing diagnostic polysomnography. My interpretation of the patient's sleep study, which I have reviewed with the patient, is as follows: Polysomnogram Report on Le Rollins performed on 02/18/2015 Clinical Information: Le Rollins is a 69 y.o. female who underwent diagnostic noctur nal polysomnography on 02/18/[address] Nolvia Madden because of possible Obstruc tive Sleep Apnea. Severe NEHEMIAH was found on split-night PSG done at [facility] in [place] on 11/17/2011 which demonstrated a pretreatment AHI of 93.5 and oxygen desaturation to 82%. She was treated with CPAP and also underwent gastric bypass surgery. She has lost a bout 80 pounds. The current study is done to determine if NEHEMIAH is still present. Technical Information: Please see technical data stored as Polysomnography under "Media" se ction in the [employer] EMR. Definitions (The AASM Manual for the Scoring of Sleep and Associated Events, Version 2.0; 2 012): Apnea: There is a drop in the peak signal excursion by 90% or greater of pre-event baseline using an oronasal thermal sensor (diagnostic study), PAP device flow (titration study), or an alternative apnea sensor (diagnostic study); the duration of the 90% or greater drop in s ensor signal is 10 seconds or longer. Obstructive Apnea: Event associated with continued or increased inspiratory effort througho ut the entire period of absent airflow. Central Apnea: Event associated with absent inspiratory effort throughout the entire period of absent airflow. Mixed Apnea: Event associated with absent inspiratory effort in the initial portion of the event followed by resumption of inspiratory effort during the second portion of the event. Hypopnea: Nasal pressure excursion drop by 30% or more from baseline, lasting at lease 10 s econds and 90% of the event's duration meets this amplitude criteria. This is associated wit h a 4% or greater desaturation from pre-baseline. Respiratory Event Related Arousal: A sequence of breaths lasting 10 seconds or longer karen cterized by increasing respiratory effort or by flattening of the inspiratory portion of the nasal pressure (diagnostic study) or PAP device flow (titration study) waveform leading to arousal from sleep when the sequence of breaths does not meet criteria for an apnea or hypop humphrey. Sleep Architecture: Lights out was recorded at 2306 hundred hours on 02/18/2015 and lights on was recorded at 0822 hundred hours on 02/19/2015. The latency to sleep onset was normal at 9.5 minutes. The patient slept for 407.5 minutes out of 553.5 minutes of study time resul ting an a sleep efficiency that was low at [...] mild Obstructive Sleep Apnea should be considered. BP 162/72 mmHg | Pulse 68 | Resp 16 | Wt 74.208 kg (163 lb 9.6 oz) | SpO2 98% A: NEHEMIAH: With weight loss she now has very mild NEHEMIAH. I've discussed this with her. The reaso ns for treating mild NEHEMIAH are primarily to improve the quality of sleep or the quality of day time functioning. She feels that she is sleeping well and she feels alert in the daytime. Fo r these reasons, I really don't think that treatment is necessary. She is very happy to hear this. P: No specific treatment for mild NEHEMIAH. She is encouraged to stay physically active. She should try to not gain weight as weig ht gain can increase the severity of NEHEMIAH. A bit more weight loss would likely help her mild NEHEMIAH. I've not arranged a f/u visit but would be happy to see her should her sleep deteriora te, her daytime functioning deteriorate, snoring worsen, apneas occur during sleep, or if sh e starts gaining weight. Today, 15 minutes was spent face to face with the patient; the majority of time was spent marcelle george regarding NEHEMIAH. documented in th is encounter Plan of Treatment Not on filedocumented as of this encounter Visit Diagnoses + + | Diagnosis | + + | NEHEMIAH (obstructive sleep apnea) - Primary Obstructive sleep apnea (adult) (pediatric) | + + documented in this encounter
--- OUTSIDE RECORDS SUMMARY | ~2020-02-03 | XMS | Encounter Summary ---
Demographics + + + | Address | [address] | | | [place] [address] | + + + | Home Phone | | + + + | Preferred Language | Unknown | + + + | Marital Status | Single | + + + | Judaism Affiliation | 1013 | + + + [...] Team Providers + +------+ + | Care Manager Neonatal Name | Role | Phone | + +------+ + | Warren Harrington | PCP | | + +------+ + Reason for Visit + + + | Reason | Comments | + + + | New Patient | | + + + | Irritable Bowel | | | Syndrome | | + + + Evaluate & Treat (Routine) +--------+--------+ + + + + | Status | Reason | Specialty | Diagnoses / | Referred By | Referred To | | | | | Procedures | Contact | Contact | +--------+--------+ + + + + | Closed | | Gastroenterol | Diagnoses | Len, | Maryanne, | | | | ogy | Mixed | Warren G | Carmelo Frausto, | | | | | irritable | [address] | MD [address] | | | | | bowel | [address] | [address] | | | | | syndrome | JD, | [place], | | | | | Personal | [place] [address] | [place] [address] | | | | | history of | Phone: | Phone: | | | | | peptic ulcer | [phone] | [phone] | | | | | disease | Fax: | Fax: | | | | | Procedures | [phone] | [phone] | | | | | 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 [address] | fibrillation (HCC); | | | | [address] | [phone] | Anastomotic ulcer | | | | [phone] | | S/P gastric bypass; | | | | | | History of peptic | | | | | | ulcer disease; | | | | | | History of stroke; | | | | | | Chronic LUQ pain; | | | | | | Chronic abdominal | | | | | | pain | +--------+---------+ + + + Social History [...] + + + | Blood Pressure | 124/64 | 01/17/2020 2:41 PM | | | | | PDT | | + + + + + | Pulse | 64 | 01/17/2020 2:41 PM | | | | | PDT | | + + + + + | Temperature | 36.6 C (97.8 F) | 01/17/2020 2:41 PM | | | | | PDT | | + + + + + | Respiratory Rate | 17 | 01/17/2020 2:41 PM | | | | | PDT | | + + + + + | Oxygen Saturation | - | - | | + + + + + | Inhaled Oxygen | - | - | | | Concentration | | | | + + + + + | Weight | 77.4 kg (170 lb 10.2 | 01/17/2020 2:41 PM | | | | oz) | PDT | | + + + + + | Height | 162.6 cm (5' 4") | 01/17/2020 2:41 PM | | | | | PDT | | + + + + + | Body Mass Index | 29.29 | 01/17/2020 2:41 PM | | | | | PDT [...] + documented as of this encounter Progress Jose D King ARNP - 01/17/2020 2:30 PM PDT Gastroenterology Consult Note Date of Office Visit: 01/17/20 Referring Provider: Warren Harrington [address] [place] [address] Consulting Provider: Jose D Trujillo APRN. Chief Complaint: Left upper quadrant pain, loose stools History of Present Illness Le Rollins is a 74 y.o. female who has a past medical history of gastric bypass in 201 2, anxiety, Arthralgia, Asthma, Atrial fibrillation, coronary artery disease, CVA, diabetes, fibromyalgia, acid reflux and as listed below who presents with concerns of chronic irritab le bowel syndrome which she describes as generalized abdominal pain that is more diffuse tod ay left upper quadrant, sometimes this pain is underneath her rib. Symptom associated with loose stools, fecal incontinency. This has been treated with dicyclomine with no relief. S he endorses history of peptic ulcer. When this visit she did not voice dysphagia, odynophagia, or overt GI bleed or unintentiona l weight loss. Assessment and Plan ? Mild generalized abdominal pain that is more diffuse to the left upper quadrant and somet imes this pain is underneath her ribs, this is associated with loose stools and fecal incont inency. She also has history of peptic ulcer disease. Patient presentation most likely IBS versus IBD. Other differentials include celiac disease, malabsorption secondary to gastric bypass, ischemic colitis, microscopic/collagenous colitis and etc. ? Esophagogastroduodenoscopy and colonoscopy recommended. ? Esophageal manometry. ? MAC sedation recommended due to patient's cardiac history and advanced age. ? PCP or cardiology to decide on how long anticoagulation therapy will be suspended prior t o the procedures. ? GoLYTELY prep. ? Stool studies. ? After collecting stool studies patient get started on cholestyramine 4 g twice a day, thi s will be taken 3 to 4 hours after the other scheduled medications. ? Follow-up for results ? Follow-up appointment after procedures have been completed. ? The procedure(s) preparation, risks; not limited to bleeding, perforation, drug reaction , infection, missed lesions; benefits and alternatives regarding the procedure has been disc ussed in detail with the patient and the patient does understand and agrees for the procedur e ? Review of Systems A 10 point review of systems was conducted with the patient. Pertinent positives and negati ves listed per HPI Problem List Patient Active Problem List Diagnosis Numbness and tingling in right hand DDD (degenerative disc disease), cervical Rotator cuff tear, right Obesity Essential hypertension with goal blood pressure less than 140/90 Diabetes mellitus, type 2 Asthma Murmur, cardiac History of non-ST elevation myocardial infarction (NSTEMI) Moderate to severe aortic stenosis Fibromyalgia Bilateral carotid artery stenosis Coronary artery disease involving [place] coronary artery of [place] heart without angina pectoris Dyslipidemia, goal LDL below 70 Hypothyroidism Infarction of parietal lobe NEHEMIAH (obstructive sleep apnea) Anastomotic ulcer S/P gastric bypass Anemia Hepatitis Family history of type II diabetes mellitus Osteoarthritis Paroxysmal atrial fibrillation History of PTCA Status post insertion of drug eluting coronary artery stent History of stroke History of right common carotid artery stent placement History of peptic ulcer disease Moderate aortic valve insufficiency Past Medical History Past Medical History: Diagnosis Date Anxiety Arthralgia Asthma Atrial fibrillation (HCC) Coronary artery disease CVA (cerebral infarction) CVA (cerebral vascular accident) (HCC) 09/2015 DDD (degenerative disc disease), cervical 02/08/2012 Depression Diabetes mellitus, type 2 (HCC) Diabetes type 2, controlled (HCC) Off all medications since surgery Fatty liver Fibromyalgia Fibromyalgia GERD (gastroesophageal reflux disease) Hyperlipidemia Hypertension Hypertension Hypothyroidism Mixed sleep apnea Murmur, cardiac Myocardial infarction (HCC) 07/2015 Numbness and tingling in right hand 02/08/2012 Obesity Old myocardial infarction NEHEMIAH (obstructive sleep apnea) Sleep apnea Stroke (HCC) Asymptomatic - noted on CT scan in distant past Stroke (HCC) Visual disturbance Vitamin D deficiency Past Surgical History Past Surgical History: Procedure Laterality Date ABDOMEN SURGERY ABDOMEN SURGERY 2011 gastric bypass APPENDECTOMY 1958 APPENDECTOMY BREAST SURGERY lumpectomy-Lt. breast CARDIAC CATHERIZATION N/A 07/27/2015 Procedure: CV DIAGNOSTIC CARDIAC CATH; Surgeon: Иван Kaur MD; Location: [facility] CARDIO VASCULAR LAB CARDIAC CATHERIZATION Bilateral 09/26/2018 Procedure: CV LHC; Surgeon: Alicia Gonzáles MD; Location: [facility] CV LAB CARDIAC CATHERIZATION Bilateral 09/26/2018 Procedure: CV RHC; Surgeon: Alicia Gonzáles MD; Location: [facility] CV LAB CARDIAC CATHERIZATION CHOLECYSTECTOMY 1988 CHOLECYSTECTOMY COLONOSCOPY fiberoptic COLONOSCOPY CORONARY ANGIOPLASTY WITH STENT PLACEMENT coronary artery surgery GASTRIC BYPASS SURGERY 2011 HYSTERECTOMY HYSTERECTOMY, TOTAL ABDOMINAL 1973 left breast lumpectomy OTHER SURGICAL HISTORY UNLISTED PROCEDURE ARTHROSCOPY OTHER SURGICAL HISTORY HARDWARE PRESENT OTHER SURGICAL HISTORY CAROTID STENT - right side right carotid stent 10/09 right knee arthroscopy 1989 THYROIDECTOMY 2005 THYROIDECTOMY, PARTIAL 1985 TONSILLECTOMY AND ADENOIDECTOMY 195 TONSILLECTOMY AND ADENOIDECTOMY TOTAL KNEE ARTHROPLASTY Right 07/16/2015 Procedure: Right Total Knee Arthroplasty; Surgeon: Jordin Fernandez MD; Location: [facility] MAIN OR TOTAL KNEE ARTHROPLASTY right knee UPPER GASTROINTESTINAL ENDOSCOPY N/A 07/12/2017 Procedure: EGD; Surgeon: Venkatesh Liz MD; Location: [facility] MEDICAL PROCEDURE UNIT UVULOPALATOPHARYGOPLASTY 1987 Family History Family History Problem Relation Age of Onset Heart disease Father Other (see comment) Son obese Hypertension Mother Heart disease Brother Hypertension Brother Heart surgery Brother Cancer Son leukemia Diabetes Brother Elevated lipids Brother Heart surgery Brother High cholesterol Brother Hypertension Brother Heart disease Brother Sleep apnea Brother Heart disease Father coronary artery disease Hypertension Mother Sleep apnea Mother Social History Social History Socioeconomic History Marital status: Single Spouse name: Not on file Number of children: Not on file Years of education: BS Highest education level: Not on file 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 Tobacco Use Smoking status: Never Smoker Smokeless tobacco: Never Used Substance and Sexual Activity Alcohol use: Never Alcohol/week: 0.0 standard drinks Frequency: Never Drug use: No Comment: Drug use: No Lifestyle Physical activity Days per week: Not on file Minutes per session: Not on file Stress: Very much Social History Narrative Exercise: Physical therapy 2 days a week, walking daily Caffeine: None Living situation: Lives alone in own apartment Allergies Allergies Allergen Reactions Abilify (Aripiprazole) Swelling Throat swelling Clonidine Derivatives Swelling Throat swelling Humalog (Insulin Lispro) Swelling Throat swelling Pioglitazone Swelling Patient states throat swelling. Shellfish-Derived Products Swelling Throat swelling Bee Venom Not Noted Iodine Unknown Topical iodine NOT iodinated contrast Lantus (Insulin Glargine) Not Noted Shellfish Hives,Nausea And Vomiting,Swelling Patient states throat swelling; eye swelling diarrhea and vomiting (x 14 days). Statins Not Noted Patient could not remember which statin caused her problems. She tolerates atorvastatin fi ne Uncoded Nonscreenable Allergen Unknown Patient states hayfever causes throat drainage. Wasp Venom Protein Swelling Intolerance No active intolerances/contraindications Medications Current Outpatient Medications on File Prior to Visit Medication Sig Dispense Refill acetaminophen (TYLENOL) 325 mg tablet Take 500 mg by mouth every 8 hours as needed for Pain. 100 tablet apixaban (ELIQUIS) 5 mg tablet Take 1 tablet by mouth 2 times daily. 60 tablet 5 atorvaSTATin (LIPITOR) 80 MG tablet Take 1 tablet by mouth nightly. 30 tablet 5 calcium-vitamin D (OSCAL) 500 mg-200 units per tablet Take 1 tablet by mouth Daily. clopidogrel (PLAVIX) 75 mg tablet Take 1 tablet by mouth Daily. 30 tablet 5 cyanocobalamin (VITAMIN B-12) 1000 MCG tablet Take 1,000 mcg by mouth Daily. dicyclomine (BENTYL) 10 mg capsule Take 10 mg by mouth Before breakfast, dinner and bed time. Takes with breakfast , lunch , and bedtime DULoxetine (CYMBALTA) [address] capsule Take 20 mg by mouth Daily. With 60 mg capsule fo r Total dose of 80mg DULoxetine (CYMBALTA) [address] capsule Take 60 mg by mouth Daily. With 20mg capsule for total dose of 80 mg EPINEPHrine auto-injector 0.3 mg/0.3 mL injection Inject 0.3 mLs into the muscle as nee ded for Anaphylaxis. 1 each 1 fluticasone (FLONASE) 50 mcg/nasal spray 1 spray by Nasal route Daily. gabapentin (NEURONTIN) 100 mg capsule Take 100 mg by mouth 2 times daily. isosorbide mononitrate (IMDUR) 30 mg ER tablet TAKE ONE TABLET BY MOUTH ONE TIME DAILY 90 tablet 3 levocetirizine (XYZAL) 5 MG tablet Take 2.5 mg by mouth every evening. levothyroxine (SYNTHROID) 100 mcg tablet Take 100 mcg by mouth every morning (before br eakfast). lisinopril-hydrochlorothiazide (PRINZIDE,ZESTORETIC) 20-25 MG per tablet Take 1 tablet by mouth Daily. 30 tablet 5 loperamide (IMODIUM) 2 mg capsule Take 2 mg by mouth Twice daily as needed for Diarrhe a. Magnesium 500 MG tablet Take 1 tablet by mouth Daily. (Patient taking differently: Take 250 mg by mouth Daily.) 30 tablet 5 metoprolol succinate (TOPROL-XL) 25 mg 24 hr tablet Take 1 tablet by mouth Daily. 30 ta blet 5 Multiple Vitamins-Minerals (MULTIVITAMIN PO) Take 1 tablet by mouth Daily. nitroglycerin (NITROSTAT) 0.[address] 1 tablet under the tongue every 5 thaddeus soledad as needed for Chest pain. 25 tablet 5 pantoprazole (PROTONIX) 40 mg tablet Take 1 tablet by mouth 2 times daily (before meals ). 84 tablet 1 QUEtiapine (SEROQUEL) 25 mg tablet Take 25 mg by mouth nightly. SITagliptin (JANUVIA) 100 mg tablet Take 100 mg by mouth Daily. UNABLE TO FIND Med Name: Resmed AirSense 10 autoset CPAP: 5-20cm while sleeping. No current facility-administered medications on file prior to visit. Physical Exam Vitals:BP 124/64 | Pulse 64 | Temp 36.6 C (97.8 F) (Temporal) | Resp 17 | Ht 1.626 m (5' 4") | Wt 77.4 kg (170 lb 10.2 oz) | BMI 29.29 kg/m General: This is a well-developed,well-nurished female in no apparent distress, alert and o riented x 3. Head: Reveals normocephalic, atraumatic Eyes: Sclera anicteric, normal conjunctiva. Lungs: Clear to auscultation without rales or wheezes. Cardiac: Pronounced murmurs, S1 and S2. Abdomen: Mild generalized abdominal tenderness, Normoactive bowel sounds. Extremities: Without cyanosis, clubbing or edema. Neuro: Awake, alert, oriented x3. Skin: Warm and dry, no erythematous rash. Labs Lab Results Component Value Date WBC 6.79 10/04/2018 HGB 13.3 10/04/2018 HCT 41.2 05/07/2018 MCV 94.3 10/04/2018 LABPLAT 211 10/04/2018 PLT 184 05/07/2018 Lab Results Component Value Date NA 142 10/04/2018 K 4.7 10/04/2018 CL 106 10/04/2018 CO2 28 10/04/2018 BUN 18 10/04/2018 CREA 0.81 05/07/2018 CALCIUM 8.7 10/04/2018 Lab Results Component Value Date ALKPHOS 84 05/07/2018 AST 56 (H) 05/07/2018 ALT 49 (H) 05/07/2018 CREA 0.81 05/07/2018 ALBUMIN 3.9 05/07/2018 Imaging None for this encounter Spent 25 minutes with over half of the time spent in discussion with the patient regarding diagnostics and possible treatment options. Documented by NICOLE Grewal Date:01/17/2020 Patient Name: Le Rollins : 1945 Portions of this chart may have been created with [employer] voice recognition software. Occasi onal wrong-word or sound-alike substitutions may have occurred due to the inherent dhillon itations of voice recognition software. Please read the chart carefully and recognize, using context, where these substitutions have occurred documented in this encounter Plan of Treatment + + +--------+ + + | Name | Type | Priori | Associated Diagnoses | Order Schedule | | | | ty | | | + + +--------+ + + | Clostridioides | Microbiolog | Routin | Bowel habit | 1 Occurrences | | difficle NAAT reflex | y | e | changes | starting 01/17/2020 | | to Tox Ag | | | | until 01/16/2021 | + + +--------+ + + | Culture, Stool | Microbiolog | Routin | Bowel habit | Expected: | | | y | e | changes | 01/17/2020, Expires: | | | | | | 05/16/2020 | + + +--------+ + + | Ova and Parasite | Microbiolog | Routin | Bowel habit | Expected: | | Examination | y | e | changes | 01/17/2020, Expires: | | | | | | 05/16/2020 | + + +--------+ + + | Giardia Ag, EIA, | Microbiolog | Routin | Bowel habit | Expected: | | Stool | y | e | changes | 01/17/2020, Expires: | | | | | | 05/16/2020 | + + +--------+ + + | Helicobacter pylori | Microbiolog | Routin | Bowel habit | Expected: | | Ag, EIA, Stool | y | e | changes | 01/17/2020, Expires: | | | | | | 05/16/2020 | + + +--------+ + + documented as of this encounter Visit Diagnoses + + | Diagnosis | + + | Bowel habit changes - Primary Other symptoms involving digestive system | + + | Paroxysmal atrial fibrillation (HCC) Atrial fibrillation | + + | Anastomotic ulcer S/P gastric bypass | + + | History of peptic ulcer disease Personal history of peptic ulcer disease | + + | History of stroke Transient ischemic attack (TIA), and cerebral infarction without | | residual deficits | + + | Chronic LUQ pain Abdominal pain, left upper quadrant | + + | Chronic abdominal pain Abdominal pain, unspecified site | + + documented in this encounter
--- OUTSIDE RECORDS SUMMARY | ~2020-02-03 | XMS | Encounter Summary ---
Demographics + + + | Address | [address] | | | [place] [address] | + + + | Home Phone | | + + + | Preferred Language | Unknown | + + + | Marital Status | Single | + + + | Yazdanism Affiliation | [id number] | + + + | Race | White | + + + | Ethnic Group | Not or | + + + Author + + + | Author | [facility] | | | and [place] | + + + | Organization | [facility] | | [...] Team Providers + +------+ + | Care Baby Doctor Name | Role | Phone | + +------+ + PCP | Unavailable | + +------+ + Reason for Visit + +--------+ + | Reason | Onset | Comments | | | Date | | + +--------+ + | Blood Pressure | 07/20/ | | | | 2019 | | + +--------+ + Encounter Details +--------+ + + + + | Date | Type | Department | Care Team | Description | +--------+ + + + + | 07/20/ | Telephone | [facility] [place] | Maral Alfonso, | Blood Pressure | | 2018 | | CARDIOLOGY [address] DERRICK FOLLOWER [address] | | | | | [place], | [place] | | | | | [place] [address] | [address] | | | | | [phone] | | | +--------+ + + + [...] this encounter Miscellaneous Notes Telephone Encounter - Zandra Benoit RN - 07/20/2018 10:59 AM DEWAYNEJudyamil called the clinic stating at her appointment in the sleep center tday her blood pressure was 90/70 mm hg. She states she is slightly dizzy and lightheaded. Advised patient to continue to monitor blood p ressure at home and if her blood pressure remains consistently low to call the clinic. If sy mptoms worsen go to the emergency room to be evaluated. Okay per patient ................... ........................ZANDRA BENOIT RN on 07/20/18 at 11:01 documented in this encounter Plan of Treatment Not on filedocumented as of this encounter Visit Diagnoses Not on filedocumented in this encounter"
--- OUTSIDE RECORDS SUMMARY | ~2020-02-03 | XMS | Encounter Summary ---
Demographics + + + | Address | [address] | | | [place] [address] | + + + | Home Phone | | + + + | Preferred Language | Unknown | + + + | Marital Status | Single | + + + | Religion Affiliation | 1013 | + + + | Race | White | + + + | Ethnic Group | Not or | + + + Author + + + | Author | [facility] | | | and [place] | + + + | Organization | [facility] | | [...] Team Providers + +------+ + | Care Lacing Operator Name | Role | Phone | + +------+ + PCP | Unavailable | + +------+ + Encounter Details +--------+ + + + + | Date | Type | Department | Care Team | Description | +--------+ + + + + | 09/26/ | Hospital | [facility] | Alicia Gonzáles, | Nonrheumatic aortic | | 2019 | Encounter | MED CTR CV INTRA OP | MD [address] | valve stenosis; | | | | [address] | [place], | Stable angina | | | | [place], [place] | [place] [address] | pectoris (HCC); | | | | [address] | [phone] | Coronary artery | | | | [phone] | | calcification seen | | | | | | on CAT scan | +--------+ + + + + Social [...] + + + | Blood Pressure | 146/60 | 09/26/2018 1:00 PM | | | | | PDT | | + + + + + | Pulse | 58 | 09/26/2018 1:00 PM | | | | | PDT | | + + + + + | Temperature | 36.9 C (98.4 F) | 09/26/2018 9:18 AM | | | | | PDT | | + + + + + | Respiratory Rate | 16 | 09/26/2018 1:00 PM | | | | | PDT | | + + + + + | Oxygen Saturation | 99% | 09/26/2018 1:00 PM | | | | | PDT [...] 75 mg daily is being sent to [facility] pharmacy Restart Eliquis today. Stop Eliquis 2 [...] site Nausea or vomiting Date Last Reviewed: 09/24/201719995144-8368 [employer]. [address] [place] [address]. All righ ts reserved. This information is [...] information carefully each time. Talk to your database administration project manager regarding the use of this medicine in children. Special care may be needed. What side effects may I notice from receiving this medicine? Side effects that you should report to your doctor or health emergency care attendant as soon as p ossible: allergic reactions [...] attention (report to your doctor or health emergency care attendant if they continue or are bothersome): constipation [...] this medicine? Visit your doctor or health emergency care attendant for regular check ups. Do not stop taking you r medicine unless your doctor tells you to. Notify your doctor or health emergency care attendant and seek emergency treatment if you develop [...] pharmacist, or health care provider. Copyright 2019 [employer] Recovery After Procedural Sedation (Adult) You have [...] You can't be awakened Date Last Reviewed: 02/11/201619998445-4338 [employer]. [address] [place] [address]. All righ ts reserved. This information is [...] that. She still tries to uses the [employer] Step machine for 15 or more thaddeus [...] exertion, like aris flaherty she moved from [facility] to [facility] and she overexerted herself. 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: LIPID Lab Results Component Value Date [...] the HPI. RESULTS- I reviewed reports from [facility]: Nuclear Stress Test on 07/12/2018 shows, [...] by gated SPECT is 80 %, by Alicia Gonzáles MD. F. Today, 08/31/2018, she is symptomatic with chest discomfort and shortness of breath on ex ertion. This could be related to coronary artery disease or her aortic valve. She will be fu rther evaluated with bilateral heart catheterization. She is on a medical regimen with long acting nitrate, aspirin, SMITA-I and statin. She stopped her beta-kristie in 2017 as she didn' t feel well with it, but doesn't remember specifics. Would be reasonable to retry it in the future. There are no signs or symptoms of overt congestive heart failure, and her physical exam sh ows no significant fluid retention. She is in class III- Symptoms with minimal exertion of the [place] [employer] functional class. Heart failure stage A-pre-heart failure. 2. Aortic stenosis A. CT Angiogram neck w contrast 10/04/2015 limited examination secondary to alyse on artifact, 60% distal common and 55% proximal right internal carotid artery stenosis, 20% distal left common carotid artery stenosis, 50% left vertebral artery stenosis secondary to cervical spondylosis, 50% right and 65% left subclavian artery stenosis. Robert Mcclure. Echocardiogram 08/08/2016 shows the left ventricle is [...] there i s none/trivial pericardial effusion. Mershed Devan. C. Echocardiogram on 07/15/2018 shows, mild left atrial dilatation, normal left ventricular size, wall thickness and motion, preserved left ventricular systolic function, L VEF is 70-75%, grade 1 left ventricular diastolic dysfunction, moderately thickened and calc ified trileaflet aortic valve with moderate calcific aortic valve stenosis, right coronary c care home is immobile, there is a mild to moderate central aortic valve insufficiency, mildly thic kened and calcified mitral valve suggesting myxomatous change, there is a trace central mitr al valve regurgitation, mild mitral annular calcification, mild tricuspid valve regurgitatio n, borderline pulmonary hypertension with a peak systolic pressure of 35-40 mmHg, normal IVC with normal respiratory collapse, by Alicia Gonzáles MD. D. Today, 08/31/2018, she has shortness of breath, [...] 75 (1) and Female Gender (1). Her [id number] score is 6, which give s an [...] gigi, and had stent to this at [facility]. . Today, 08/31/2018, she is on good [...] NICOLE Harden. - Rashi Hampton 08/31/2018 9:54 Maral Ford ARNP, personally performed the services described in this documentation, as scribed in my presence and it is both accurate and complete. NICOLE Harden 08/31/2018 Portions of this chart may have been created with [employer] voice recognition software. Occasi onal wrong-word or [...] (1945) MEDICAL RECORD NUMBER: | | | [id number] OF PROCEDURE: 09/26/2018 DATABASE DBA: Alicia | | | MD Nivia PROCEDURES [...] 7 Fr. | | | balloon tip Dennison-Silvio in the right femoral vein. The equipment [...] | administration of moderate sedation with continuous imrt-ev-meep | | | attendance. My intra-service time [...] | | with Dr. Guadalupe, interventionalists at [facility].. | | | | | | PRIMARY CARE PROVIDER:Ole Madden DO For additional detail | | | [...] is discussed with Dr. Guadalupe, interventionalists at [facility]. | | |. | | | | [...] Rollins, (1945) MEDICAL RECORD NUMBER: | | [id number] OF PROCEDURE: 09/26/2018PRIMARY SHIP SELF DEFENSE SYSTEM MK1 OPERATOR: Alicia Gonzáles MD | | PROCEDURES PERFORMED:Coronary AngiographyLeft Heart CatheterizationRight Heart | | CatheterizationLeft Ventriculography Indications:Chest painBrief [...] obtained with a 7 Fr. balloon tip Dennison-Silvio in the right femoral vein. | | [...] of moderate sedation with continuous | | euyj-zv-jsem attendance. My intra-service time was 30 minutes. [...] | discussed with Dr. Guadalupe, interventionalists at [facility].. [facility] CARE PROVIDER:Ole Madden, | | DOFor [...] is discussed with Dr. Guadalupe, interventionalists at [facility]. | |. | | | | | | | | | | | | | | | |PRIMARY CARE PROVIDER: | |Ole Madden, | | | | | |For additional [...] + | Diagnosis | + + | Nonrheumatic aortic valve stenosis Aortic valve disorders | + + | Stable angina pectoris (HCC) | + + | Coronary artery calcification seen on CAT scan Coronary atherosclerosis of | | unspecified type of vessel, birch creek or graft | + + documented in this encounter [...] PRN, | | | Chest pain, Starting Wed09/26/18 | | | at 1034, May give [...]
--- OUTSIDE RECORDS SUMMARY | ~2020-02-03 | XMS | Encounter Summary ---
Demographics + + + | Address | [address] | | | [place] [address] | + + + | Home Phone | | + + + | Preferred Language | Unknown | + + + | Marital Status | Single | + + + | Roman Catholic Affiliation | 1013 | + + + | Race | White | + + + | Ethnic Group | Not or | + + + Author + + + | Author | [facility] | | | and [place] | + + + | Organization | [facility] | | | [...] Team Providers + +------+ + | Care Test And Turn Up Technician Name | Role | Phone | + +------+ + | Wilson Lin MD | PCP | | + +------+ + Reason for Visit +---------+--------+ + | Reason | Onset | Comments | | | Date | | +---------+--------+ + | No Show | 06/24/ | | | | 2018 | | +---------+--------+ + Encounter Details +--------+ + + + + | Date | Type | Department | Care Team | Description | +--------+ + + + + | 06/24/ | Telephone | [facility] | Aung Jimenez PA | No Show | | 2018 | | SLEEP DISORDER [address] | [address] | | | | | [address] | [place] | | | | | [place] [address] | [id number] | | | | | [phone] | | | +--------+ + + + [...] this encounter Miscellaneous Notes Telephone Encounter - Tania Kerr Payroll Accountant - 07/05/2017 8:46 AM PDTPatient h as rescheduled her missed appointment. elephone Encounter - Tania Kerr Payroll Accountant - 10:02 AM PSTCalled patient to reschedule her missed 06/21/2017 appointment. I left a voice message with our number and hours. I will try again in a few days.Electronically sign ed by Tania Kerr Payroll Accountant at 06/24/2017 10:03 AM PSTdocumented in this encount er Plan of Treatment Not on filedocumented as of this encounter Visit Diagnoses Not on filedocumented in this encounter"
--- OUTSIDE RECORDS SUMMARY | ~2020-02-03 | XMS | Encounter Summary ---
Demographics + + + | Address | [address] | | | [place] [address] | + + + | Home Phone [...] Author + + + | Author | [facility] | | | and [place] | + + + | Organization | [facility] | | | and [...] Team Providers + +------+ + | Care Sand Digger Name | Role | Phone | + +------+ + | Wilson Lin MD | PCP | | + +------+ + Reason for Visit +--------+ + | Reason | Comments | +--------+ + | Other | sleep results | +--------+ + Encounter Details +--------+---------+ + + + | Date | Type | Department | Care Team | Description | +--------+---------+ + + + | 11/05/ | Office | [facility] | Marck Brar | NEHEMIAH (obstructive | | 2017 | Visit | SLEEP DISORDER [address] | MD [address] | sleep apnea) | | | | [address] [place] | [address] [place] | (Primary Dx); Mixed | | | | [place] [address] | [place] [address] | sleep apnea | | | | [phone] | [phone] | | | | | | | [...] + + + | Blood Pressure | 126/64 | 11/05/2016 10:15 AM | | | | | PDT | | + + + + + | Pulse | 63 | 11/05/2016 10:15 AM | | | | | PDT | | + + + + + | Temperature | - | - | | + + + + + | Respiratory Rate | 14 | 11/05/2016 10:15 AM | | | | | PDT | | + + + + + | Oxygen Saturation | 99% | 11/05/2016 10:15 AM | | | | | PDT | | + + + + + | Inhaled Oxygen | - | - | | | Concentration | | | | + + + + + | Weight | 71.6 kg (157 lb 12.8 | 11/05/2016 10:15 AM | | | | oz) | PDT | | + + + + + | Height | - | - | | + + + + + | Body Mass Index | 26.67 | 07/22/2016 9:52 AM | | | [...] Patient Instructions Marck Brar Jr., MD - 11/05/2016 10:50 AM PDTFormatting of this n ote might be different from the original. Continuous Positive Airway Pressure (CPAP) Your healthcare provider has prescribed continuous positive airway pressure (CPAP) therapy for you. A CPAPdevice helps you breathe better at night. The device sends air through your nose or mouth when you breathe in to keep your air passages open. CPAP is: Used most often to treat sleep apnea and some other problems. (Sleep apnea is a chronic condition with periods of sleep in which you briefly stop breathing.) Safe and very effective. But it takes time to get used to the mask. Your healthcare provider, nurse, or medical supplier will give you tips for wearing and car ing for your CPAP device. General guidelines Recommendations include the following: It's very important not togive up! It takes time to get used to wearing the mask at [facility]. Practice using your CPAP device during the day, especially whenever you take a nap. Remember, there are several different types of masks. If you can t get used to your ma sk, ask your provider or medical supply company about trying another style. If you have nasal stuffiness or dryness when using your CPAP device, talk with your prov ider or medical supply company. There are ways to ease these problems. For example, your pro vider may recommend using a moistening nasal spray. Or the medical supply company may recomm end a device with a humidifier. The goal is to use yourCPAP all night, every night, during all naps, and even when you travel. Keep your mask clean. Wash it with soap and water. Be sure to rinse the mask and tubing well with water to remove any soap. Let them air-dry completely before using. Make yourself comfortable when sleeping with CPAP. Try using extra pillows. Work with your medical supply company so that you know how to correctly use your CPAP. The company's entry level marketing representative will be able to help you: Use the CPAP correctly Troubleshoot any problems that come up Learn to clean and maintain the device Adjust to regular use of the CPAP The CPAP device settings are given as centimeters of water, or cm/H2O. Each person s pres sure settings are different. Your healthcare provider will tell you what settings to use. Ne onur change your CPAP pressure setting unless your provider tells you to. CPAP cm/H20 pressure when you breathe in Date Last Reviewed: 08/25/201519998153-0091 [employer]. [address] [place] [address], [place] [address]. All righ ts reserved. This information is not intended as a substitute for professional medical care. Always follow your healthcare professional's instructions. documented in this encounter Progress Notes Marck Brar Jr., MD - 11/05/2016 10:15 AM PDTThe patient comes in for follow-up after undergoing diagnostic polysomnography. My interpretation of the patient's sleep study, which I have reviewed with the patient, is as follows: Polysomnogram Report on Le Rollins performed on September 29, 2016. Clinical Information: Le Rollins is a 71 y.o. female who underwent diagnostic noctu rnal polysomnography on September 29, [address] Wilson Lin because of NEHEMIAH. Split-night polysomnography performed in 2011 at [facility] in [facility] rated a pretreatment Apnea Hypopnea Index index [...] thermal sensor (diagnostic study), PAP device flow ( titration study), or an alternative apnea sensor (diagnostic study); the duration of the 90% or greater drop in sensor signal is 10 seconds or longer. Obstructive Apnea: Event associated with continue d or increased inspiratory effort throughout the entire period of absent airflow. Central Apnea: Event associated with absent inspi ratory effort throughout the entire period of absent airflow. Mixed Apnea: Event associated with absent inspira tory effort in the initial portion of the event followed by resumption of inspiratory effort during the second portion of the event. Hypopnea: The peak signal excursions drop by greater than or equal to 30% of pre-event baseline using a recommended or alternative airflow sensor and the duration of the >= 30% drop in signal excursion is greater than or equal to 10 seconds and there is a greater than or equal to a 4% oxygen desaturation from pre-event baseline. Respiratory Event Related Arousal: A sequence of breaths lasting 10 se conds or longer characterized by increasing respiratory effort or by flattening of the inspi ratory portion of the nasal pressure (diagnostic study) or PAP device flow (titration study) waveform leading to arousal from sleep when the sequence of breaths does not meet criteria for an apnea or hypopnea. Sleep Architecture: Lights out was recorded at [...] the Apnea-Hypopnea Index elevated at 20; the Conference Translator ea Index (AI) elevated at 16.7. The [...] airway pressu re will likely be required. BP 126/64 | Pulse 63 | Resp 14 | Wt 71.6 kg (157 lb 12.8 oz) | SpO2 99% | BMI 26.67 kg /m A: Obstructive Sleep Apnea and Mixed Sleep Apnea: I've discussed this with the patient. Th paul are very positional and basically occur primarily in the supine position. She states th at she tries not to sleep supine but often ends up supine awakening gasping for air or postn bebe drip. I am getting to suggest that we start her on CPAP. When I originally read her s leep study I was thinking that we probably should bring her back into the laboratory for myra ysomnographically guided CPAP titration. She really would prefer not to do this. I think leander salomon can send her home on an auto titrating CPAP unit with careful clinical follow-up. If mixe d or central apneas do not resolve then we will need to bring her into the sleep center for polysomnographically guided ASV titration. P: Resmed AirSense 10 autoset CPAP 5-20cm is prescribed. F/u 2 days after getting CPAP with our Clinical Sleep Educator and our P[facility] Adherence [facility] . Today, 15 minutes was spent face to face with the patient; the majority of time was spent c suzyeling regarding NEHEMIAH/MSA and therapy. documented in th is encounter Plan of Treatment Not on filedocumented as of this encounter Visit Diagnoses + + | Diagnosis | + + | NEHEMIAH (obstructive sleep apnea) - Primary Obstructive sleep apnea (adult) (pediatric) | + + | Mixed sleep apnea Other organic sleep apnea | + + documented in this encounter"
--- OUTSIDE RECORDS SUMMARY | ~2020-02-03 | XMS | Encounter Summary ---
Demographics + + + | Address | [address] | | | [place] [address] | + + + | Home Phone | | + + + | Preferred Language | Unknown | + + + | Marital Status | Single | + + + | Restoration Affiliation | 1013 | + + + | Race | White | + + + | Ethnic Group | Not or | + + + Author + + + | Author | [facility] | | | and [place] | + + + | Organization | [facility] | | | [...] Providers + +------+ + | Care Test Clerk Name | Role | Phone | + [...] | | | [address] [place] | [place] [address] | | | | | [place] [address] | | | | | | [phone] | | | +--------+ + + + [...] + | ECHO COMPLETE | Routin | 03/10/2017 | | Results for this | | | e | 2:20 PM | | procedure are in the | | | | PST | | results section. | + +--------+ + + + documented in this encounter Results ECHO Complete (03/10/2017 2:20 PM PST) + + | Specimen | [...]
--- OUTSIDE RECORDS SUMMARY | ~2020-02-03 | XMS | Encounter Summary ---
Demographics + + + | Address | [address] | | | [place] [address] | + + + | Home Phone | | + + + | Preferred Language | Unknown | + + + | Marital Status | Single | + + + | Pentecostalism Affiliation | 1013 | + + + | Race | White | + + + | Ethnic Group | Not or | + + + Author + + + | Author | [facility] | | | and [place] | + + + | Organization | [facility] | | | [...] Team Providers + +------+ + | Care Cpa Tax Name | Role | Phone | + +------+ + | Kavya Raymundo NP | PCP | | + +------+ + Reason for Visit + + + | Reason | Comments | + + + | Shoulder Pain | Right shoulder pain, with pain radiating down the right arm | + + + | Arm Pain | tightness in upper arm | + + + Service/Procedure (Routine) +--------+ + + + + + | Status | Reason | Specialty | Diagnoses / | Referred By | Referred To | | | | | Procedures | Contact | Contact | +--------+ + + + + + | Closed | Specialty | Physical | Diagnoses | Armida, | Bre, | | | Services | Medicine and | "EMG/NVC | [place] | Tay Rodriguez MD | | | Required | Rehabilitatio | Study | MD Ole | [address] | | | | n | Only""Swelli | [address] [place] | | | | | ng of | [address] | [place], [place] | | | | | Limb""Pain | [place], | [address] Phone: | | | | | in | [place] [address] | [phone] | | | | | Limb""Pareth | Phone: | Fax: | | | | | esia" | [phone] | [phone] | | | | | Procedures | Fax: | | | | | | EMG Upper | [phone] | | | | | | Extremities | | | +--------+ + + + + + Encounter Details +--------+ + + + + | Date | Type | Department | Care Team | Description | +--------+ + + + + | 02/07/ | Procedure | [facility] | Tay Díaz | Numbness and | | 2011 | visit | PHYSIATRY [address] | T, MD [address] | tingling in right | | | | [address] | [address] [place] | hand; DDD | | | | [place] | [address] | (degenerative disc | | | | [address] | | disease), cervical; | | | | [phone] | | Rotator cuff tear, | | | | | | right | +--------+ + + + + Social History + +-------+ +--------+------+ | Tobacco Use | Types | Packs/Day | Years | Date | | | | | Used | | + +-------+ +--------+------+ | Never Smoker | | | | | + +-------+ +--------+------+ + + | Tobacco Cessation: Counseling Given: No | + + + + +---------+ + | Alcohol Use | Drinks/Week | oz/Week | Comments | + + +---------+ + | No | | | | + + +---------+ + [...] + + + | Blood Pressure | 148/71 | 02/08/2012 11:28 AM | | | | | PDT | | + + + + + | Pulse | 74 | 02/08/2012 11:28 AM | | | | | PDT | | + + + + + | Temperature | - | - | | + + + + + | Respiratory Rate | - | - | | + + + + + | Oxygen Saturation | - | - | | + + + + + | Inhaled Oxygen | - | - | | | Concentration | | | | + + + + + | Weight | 108.9 kg (240 lb) | 02/08/2012 11:28 AM | | | | | PDT | | + + + + + | Height | 167.6 cm (5' 6") | 02/08/2012 11:28 AM | | | | | PDT | | + + + + + | Body Mass Index | 38.74 | 02/08/2012 11:28 AM | | | | | PDT | | + + + + + documented in this encounter Patient Instructions Patient Instructions Tay Díaz MD - 02/08/2012 1:21 PM PDTFollow-up with Dr. Toan Huffman for review of today's study and further plan of care. documented in this encounter Progress Notes Tay Díaz MD - 02/08/2012 1:15 PM PDTEMG and nerve conduction studies were perfo rmed today. A separate detailed note was prepared and will be scanned into the medical [address]. Please refer to that document for details. Summary: Normal EMG and nerve conduction study. There is no electrodiagnostic evidence of carpal tunnel syndrome, peripheral neuropathy, brachial plexopathy or cervical radiculopathy . She does have significant DDD of the cervical spine seen on a recent CT scan. It is possib le that she has nerve root irritation that has not progressed to the point of nerve damage. Additional work-up in the form of an MRI cervical spine may be warranted. documented in this encounter Plan of Treatment Not on filedocumented as of this encounter Visit Diagnoses + + | Diagnosis | + + | Numbness and tingling in right hand Disturbance of skin sensation | + + | DDD (degenerative disc disease), cervical Degeneration of cervical intervertebral | | disc | + + | Rotator cuff tear, right Rotator cuff (capsule) sprain | + + documented in this encounter
--- OUTSIDE RECORDS SUMMARY | ~2020-02-03 | XMS | Encounter Summary ---
Demographics + + + | Address | [address] | | | [place] [address] | + + + | Home Phone | | + + + | Preferred Language | Unknown | + + + | Marital Status | Single | + + + | Latter Day Affiliation | 1013 | + + + [...] Team Providers + +------+ + | Care Director Electronics Name | Role | Phone | + +------+ + PCP | Unavailable | + +------+ + Reason for Visit + + + | Reason | Comments | + + + | Shortness of Breath | | + + + | Weakness | | + + + | Headache (Adult - | | | Recurrent Or Known | | | Dx Migraines) | | + + + Encounter Details +--------+ + + + + | Date | Type | Department | Care Team | Description | +--------+ + + + + | 05/07/ | Emergency | [facility] | John Mark MD | Confusion (Primary | | 2019 | | [facility] | [address] | Dx) | | | | CENTER [address] | [place] | | | | | [place] | [address] | | | | | [address] | | | | | | [phone] | | | +--------+ + + + [...] + + + | Blood Pressure | 153/57 | 05/07/2018 1:00 PM | | | | | PST | | + + + + + | Pulse | 57 | 05/07/2018 1:00 PM | | | | | PST | | + + + + + | Temperature | 37.1 C (98.7 F) | 05/07/2018 12:04 PM | | | | | PST | | + + + + + | Respiratory Rate | 18 | 05/07/2018 1:00 PM | | | | | PST | | + + + + + | Oxygen Saturation | 100% | 05/07/2018 1:00 PM | | | | | PST | | + + + + + | Inhaled Oxygen | - | - | | | Concentration | | | | + + + + + | Weight | 72 kg (158 lb 11.7 | 05/07/2018 12:04 PM | | | | oz) | PST | | + + + + + | Height | - | - | | + + + + + | Body Mass Index | 27.25 | 10/08/2017 10:51 AM | | | [...] as of this encounter Discharge Instructions Instructions John Mark MD - 05/07/2018Continue your medications as previously Rest and fluids Return for fever, chest pain, trouble breathing, fainting, worsening symptoms, other new co mplaints documented in this encounter Medications at Time [...] tablet by | 60 | 5 | 10/09/19 | | | 5 mg tablet | mouth 2 times daily. | tablet | | 18 | 9 [...] + + + +---------+ + + | meclizine | Take 1 tablet by | 20 | 0 | 08/07/19 | | | (ANTIVERT) 25 mg | mouth 3 times daily | tablet | | 18 | 9 | | tablet | as needed. | | | | [...] + + documented as of this encounter ED Notes John Mark MD - 05/07/2018 12:52 PM PST Emergency Department Encounter NotE CHIEF COMPLAINT Headache, confusion HPI Le Rollins is a 73 y.o. female who presents to the Emergency Department was had some ongoing confusion for the last week. She's been unclear on whether she taken her medicatio ns or not. She's had some generalized malaise and some anxiety. She's had some nausea. Sh e's had a headache that is currently occipital. She's had some shortness of breath. No jayjay st pain. No clear exertional symptoms. She's not had fever. She has history of previous s troke and is concerned she may have had TIA earlier this week. No other complaints currentl y. PAST MEDICAL & SURGICAL HISTORY Past Medical History: Diagnosis Date Asthma CVA (cerebral vascular accident) (HCC) 09/2015 DDD (degenerative disc disease), cervical 02/08/2012 Diabetes type 2, controlled ([facility]) Off all medications since surgery Fibromyalgia Hypertension Mixed sleep apnea Murmur, cardiac Myocardial infarction (HCC) 07/2015 Numbness and tingling in right hand 02/08/2012 Obesity NEHEMIAH (obstructive sleep apnea) Stroke ([facility]) Asymptomatic - noted on CT scan in distant past Past Surgical History: Procedure Laterality Date ABDOMEN SURGERY APPENDECTOMY 1958 CARDIAC CATHERIZATION N/A 07/27/2015 Procedure: CV DIAGNOSTIC CARDIAC CATH; Surgeon: Иван Kaur MD; Location: [facility] CARDIO VASCULAR LAB CHOLECYSTECTOMY 1988 COLONOSCOPY fiberoptic coronary artery surgery GASTRIC BYPASS SURGERY 2011 HYSTERECTOMY, TOTAL ABDOMINAL 1973 left breast lumpectomy right carotid stent 10/09 right knee arthroscopy 1989 THYROIDECTOMY 2005 THYROIDECTOMY, PARTIAL 1985 TONSILLECTOMY AND ADENOIDECTOMY 1950 TOTAL KNEE ARTHROPLASTY Right 07/16/2015 Procedure: Right Total Knee Arthroplasty; Surgeon: Jordin Fernandez MD; Location: [facility] MAIN OR UPPER GASTROINTESTINAL ENDOSCOPY N/A 07/12/2017 Procedure: EGD; Surgeon: Venkatesh Liz MD; Location: [facility] MEDICAL PROCEDURE UNIT UVULOPALATOPHARYGOPLASTY 1987 SOCIAL HISTORY Social History Social History Marital status: Single Spouse name: N/A Number of children: N/A Years of education: BS 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 APIXABAN (ELIQUIS) 5 MG TABLET Take 1 tablet by mouth 2 times daily. ASPIRIN 81 MG TABLET Take 2 tablets by mouth Daily. ATORVASTATIN (LIPITOR) 80 MG TABLET Take 80 mg by mouth nightly. BUSPIRONE (BUSPAR) 5 MG TABLET Take 5 mg by mouth 2 times daily. CALCIUM-VITAMIN D (OSCAL) 500 MG-200 UNITS PER TABLET Take 1 tablet by mouth Daily. CYANOCOBALAMIN (VITAMIN B-12) 1000 MCG TABLET Take 1,000 mcg by mouth Daily. DICLOFENAC (VOLTAREN) 1% GEL Apply 1 g topically 2 times daily. DULOXETINE (CYMBALTA) [address] CAPSULE Take 20 mg by mouth Daily. With 60 mg capsule fo r Total dose of 80mg DULOXETINE (CYMBALTA) [address] CAPSULE Take 60 mg by mouth Daily. With 20mg capsule for total dose of 80 mg EPINEPHRINE AUTO-INJECTOR 0.3 MG/0.3 ML INJECTION Inject 0.3 mLs into the muscle as nee ded for Anaphylaxis. HOMEOPATHIC PRODUCTS (LEG CRAMP RELIEF) TABS Take 1 tablet by mouth. ISOSORBIDE MONONITRATE (IMDUR) 30 MG ER TABLET Take 1 tablet by mouth Daily. LEVOTHYROXINE (SYNTHROID) 175 MCG TABLET Take 175 mcg by mouth every morning (before br eakfast). LISINOPRIL-HYDROCHLOROTHIAZIDE (PRINZIDE,ZESTORETIC) 20-25 MG PER TABLET Take 1 tablet by mouth Daily. MAGNESIUM 500 MG TABLET Take 500 mg by mouth Daily. MECLIZINE (ANTIVERT) 25 MG TABLET Take 1 tablet by mouth 3 times daily as needed. MULTIPLE VITAMINS-MINERALS (MULTIVITAMIN PO) Take 1 tablet by mouth Daily. NITROGLYCERIN (NITROSTAT) 0.[address] 1 tablet under the tongue every 5 thaddeus soledad as needed for Chest pain. PANTOPRAZOLE (PROTONIX) 40 MG TABLET Take 1 tablet by mouth 2 times daily (before meals ). TRAMADOL (ULTRAM) 50 MG TABLET Take 1 tablet by mouth every 8 hours as needed. UNABLE TO FIND Med Name: Resmed AirSense 10 autoset CPAP: 5-20cm while sleeping. ALLERGIES Allergies Allergen Reactions Aripiprazole Bee Venom Clonidine Derivatives Insulin Glargine Insulin Lispro Shellfish-Derived Products Statins Patient could not remember which statin caused her problems. She tolerates atorvastatin f ine REVIEW OF SYSTEMS As in history of present illness. A 10 system of review was otherwise negative. PHYSICAL EXAM VITAL SIGNS: (first vital signs):Temp: 37.1 C (98.7 F) Pulse: 87 Resp: 18 SpO2: 100 % B P: 144/53 General: Alert, appears anxious, non toxic HEENT: Normocephalic, atraumatic, OP dry, EOMI Neck: supple, full range of motion, no tracheal deviation, no nuchal rigidity Cardiovascular: Normal rate and rhythm, no murmurs, rubs or gallops Pulmonary: CTA bilateral, no wheeze/rhonci or resp distress Abdominal: Soft, non tender, no rebound or guarding Musculoskeletal: normal ROM, no edema Neurologic: Alert, no cranial nerve deficits, no focal deficits Skin: warm and dry EKG Sinus bradycardia, 59 bpm, no acute LABS CBC unremarkable CMP mild elevation of LFTs, glucose 150 INR pending Troponin negative UA negative IMAGING STUDIES X-ray chest without acute CT head without acute ASSESSMENT & ED COURSE Patient here with some memory issues and some generalized confusion. Labs and CT scan are reassuring. She does not have focal deficit on examination. She has been having some anxie ty as well. She's recently moved and had some trouble sleeping at think a number of these s tressors may be causing some of her symptoms. Do not see clear CVA. No sign of cardiac cau se. She is alert and oriented appears hemodynamically stable. We'll plan on discharge with primary care follow-up that sheared he has scheduled. DISPOSITION Discharge FINAL IMPRESSION Confusion John Mark MD 05/07/18 [id number] inig, Dev Mcmahon RN - 03/2019 11:58 AM PSTPt reports increased stress and has symptoms of shortness of breath, hea dache and generally weakness x last week. Pt concerned it is signs of stroke. Pt also repo rts foggyness in her thinking and that she is unsure if she has been taking her meds.Electro nically signed by Dev Maddox RN at 05/07/2018 12:08 PM PSTdocumented in this encounter Plan of Treatment Not on filedocumented as of this encounter Procedures + +--------+ + + + | Procedure Name | Priori | Date/Time | Associated Diagnosis | Comments | | | ty | | | | + +--------+ + + + | URINALYSIS WITH | STAT | 05/07/2018 | | Results for this | | MICROSCOPIC WITH | | 2:08 PM | | procedure are in the | | CULTURE IF INDICATED | | PST | | results section. | + +--------+ + + + | CBC W/AUTO | STAT | 05/07/2018 | | Results for this | | DIFFERENTIAL | | 2:02 PM | | procedure are in the | | | | PST | | results section. | + +--------+ + + + | TROPONIN I | STAT | 05/07/2018 | | Results for this | | | | 2:02 PM | | procedure are in the | | | | PST | | results section. | + +--------+ + + + | PROTIME INR | STAT | 05/07/2018 | | Results for this | | | | 2:02 PM | | procedure are in the | | | | PST | | results section. | + +--------+ + + + | COMPREHENSIVE | STAT | 05/07/2018 | | Results for this | | METABOLIC PANEL | | 2:02 PM | | procedure are in the | | | | PST | | results section. | + +--------+ + + + | CT HEAD WO CONTRAST | STAT | 05/07/2018 | | Results for this | | | | 12:56 PM | | procedure are in the | | | | PST | | results section. | + +--------+ + + + | XR CHEST AP PORTABLE | STAT | 05/07/2018 | | Results for this | | | | 12:56 PM | | procedure are in the | | | | PST | | results section. | + +--------+ + + + | ECG 12 LEAD | STAT | 05/07/2018 | | Results for this | | | | 12:01 PM | | procedure are in the | | | | PST | | results section. | + +--------+ + + + documented in this encounter Results Urinalysis with Microscopic with Culture if Indicated (05/07/2018 2:08 PM PST) + + + + + + | [...] + + + + | Clarity, | Clear | Clear | [facility] | | | [...] + + + + | Specific | 1.006 | 1.001 - 1.030 | [facility] | | | [place], | | | [facility] | | [...] + + + + | Leukocyte | Negative | Negative | [facility] | [...] + + + | White Blood | 0-2 | 0 - 2 /HPF | [facility] | | | Cells, | | | [facility] | | | Urine | | | MEDICAL | | | | | | CENTER - | | | | | | LABORATORY | | + + + + + + | Red Blood | 0-2 | 0 - 2 /HPF | [facility] | | | Cells, | | | [facility] | | | Urine | | | MEDICAL | | | | | | CENTER - | | | | | | LABORATORY | | + + + + + + | Squamous | 2-5 (A) | 0 - 2 /LPF | [facility] | | | Epithelial | | | [facility] | | | Cells, | | | MEDICAL | | | Urine | | | CENTER - | | | | | | LABORATORY | | + + + + + + | Bacteria, | Negative | Negative /HPF | [facility] | | | Urine | | | [facility] | | | | | | MEDICAL | | | | | | CENTER - | | | | | | LABORATORY | | + + + + + + | Urine | Urine Culture Not | | [facility] | | | Comment | Indicated | | [facility] | | | | | | MEDICAL | | | | | | CENTER - | | | | | | LABORATORY | | + + + + + + + + | Specimen | + + | Urine - Urine | | specimen obtained by | | clean catch | | procedure (specimen) | + + + + + + + | Performing | Address | City/State/Zipcode | Phone Number | | Organization | | | | + + + + + | [facility] | [address] | [place] | [phone] | | [facility] | | [address] | | | - LABORATORY | | | | + + + + + Shielaime INR (05/07/2018 2:02 PM PST) + + + + + + | Component | Value | Ref Range | Performed | Pathologist | | | | | At | Signature | + + + + + + | Prothrombin | 15.2 (H) | 11.3 - 13.9 | [facility] | | | Time | | seconds | [facility] | | | | | | MEDICAL | | | | | | CENTER - | | | | | | LABORATORY | | + + + + + + | INR | 1.2 (H)Comment: Usual | 0.9 - 1.1 | [facility] | | | | Oral Anticoagulation | | [facility] | | | | Range: 2.0 - [...] + | [facility] | [address] | [place] | [phone] | | [facility] | | [address] | | | - LABORATORY | | | | + + + + + Troponin I (05/07/2018 2:02 PM PST) + + + + + + | Component | Value | Ref Range | Performed | Pathologist | | | | | At | Signature | + + + + + + | Troponin I | <0.01Comment: Reference | <0.06 ng/mL | [facility] | | | | Ranges:0.00-0.06 = | | [facility] | | | | NORMAL>0.06 = | | MEDICAL | | | | SUSPICIOUS FOR | | CENTER - | | | | MYOCARDIAL DAMAGE NOTE: | | LABORATORY | | | | Values greater than 0.50 | | | | | | ng/mL have been shown | | | | | | to be strongly | | | | | | associated with acute | | | | | | myocardial infarction. | | | | | | [employer] | | | | | [...] [address] | [place] | [phone] | | [facility] | | [address] | | | - LABORATORY | | | | + + + + + Comprehensive Metabolic Panel (05/07/2018 2:02 PM PST) + + + + + + | [...] + + + + | K | 4.3 | 3.5 - 5.1 | [facility] | [...] + + + + | CO2 | 24 | 24 - 31 mmol/L | [facility] | | | | | | [facility] | | | | | | MEDICAL | | | | | | CENTER - | | | | | | LABORATORY | | + + + + + + | Anion Gap | 13 | 3 - 16 mmol/L | [facility] | | | | | | [facility] | | | | | | MEDICAL | | | | | | CENTER - | | | | | | LABORATORY | | + + + + + + | Glucose | 150 (H) | 70 - 109 mg/dL | [facility] | | | | | | [facility] | | | | | | MEDICAL | | | | | | CENTER - | | | | | | LABORATORY | | + + + + + + | BUN | 15 | 7 - 18 mg/dL | [facility] | | | | | | [facility] | | | | | | MEDICAL | | | | | | CENTER - | | | | | | LABORATORY | | + + + + + + | Creatinine | 0.81 | 0.60 - 1.30 | [facility] | [...] mL/min/1.73m2 | [facility] | | | [employer] | RATE,ESTIMATED | | MEDICAL | | | | mL/min/1.01a1Qmoh than | | CENTER - | | [...] + + | Calcium | 8.7 | 8.3 - 10.5 | [facility] | | | | | mg/dL | [facility] | | | | | | MEDICAL | | | | | | CENTER - | | | | | | LABORATORY | | + + + + + + | Albumin | 3.9 | 3.2 - 5.0 g/dL | [facility] | | | | | | [facility] | | | | | | MEDICAL | | | | | | CENTER - | | | | | | LABORATORY | | + + + + + + | Bilirubin | 0.7Comment: This is an | 0.1 - 1.5 [...] + + + + | Total | 6.6 | 6.0 - 7.8 g/dL | [facility] | | | Protein | | | [facility] | | | | | | MEDICAL | | | | | | CENTER - | | | | | | LABORATORY | | + + + + + + | AST | 56 (H)Comment: This is | 10 - 42 U/L | [facility] | | | | an appended report. | | [facility] | | | | These results have been | | MEDICAL | | | | appended to a previously | | CENTER - | | | | preliminary verified | | LABORATORY | | | | report. | | | | + + + + + + | ALT | 49 (H)Comment: This is | 6 - 45 U/L | [facility] | | | | an appended report. | | [facility] | | | | These results have been | | MEDICAL | | | | appended to a previously | | CENTER - | | | | preliminary verified | | LABORATORY | | | | report. | | | | + + + + + + | Alkaline | 84Comment: This is an | 40 - 110 [...] + + + + | Globulin | 2.7 | 2.1 - 3.8 g/dL | [facility] | | | | | | [facility] | | | | | | MEDICAL | | | | | | CENTER - | | | | | | LABORATORY | | + + + + + + | Albumin/Karrie | 1.4 | 0.8 - 2.0 | [facility] | | | bulin Ratio | | | [facility] | | | | | | MEDICAL | | | | | | CENTER - | | | | | | LABORATORY | | + + + + + + | BUN/Creatin | 18.5 | | [facility] | | | ine [...] + | [facility] | [address] | [place] | [phone] | | [facility] | | [id number] | | | - LABORATORY | | | | + + + + + CBC w/ Auto Differential (05/07/2018 2:02 PM PST) + + + + + + | Component | Value | Ref Range | Performed | Pathologist | | | | | At | Signature | + + + + + + | White Blood | 6.2 | 4.0 - 11.0 K/uL | [facility] | | | Cells | | | [facility] | | | | | | MEDICAL | | | | | | CENTER - | | | | | | LABORATORY | | + + + + + + | Red Blood | 4.02 | 3.70 - 5.20 | [facility] | | | Cells | | M/uL | [facility] | | | | | | MEDICAL | | | | | | CENTER - | | | | | | LABORATORY | | + + + + + + | Hemoglobin | 13.3 | 11.5 - 16.0 | [facility] | | | | | g/dL | [facility] | | | | | | MEDICAL | | | | | | CENTER - | | | | | | LABORATORY | | + + + + + + | Hematocrit | 41.2 | 34.0 - 47.0 % | [facility] | | | | | | [facility] | | | | | | MEDICAL | | | | | | CENTER - | | | | | | LABORATORY | | + + + + + + | MCV | 102.5 (H) | 83.0 - 101.0 fL | [facility] | | | | | | [facility] | | | | | | MEDICAL | | | | | | CENTER - | | | | | | LABORATORY | | + + + + + + | MCH | 33.1 | 28.0 - 35.0 pg | [facility] | | | | | | [facility] | | | | | | MEDICAL | | | | | | CENTER - | | | | | | LABORATORY | | + + + + + + | MCHC | 32.3 | 32.0 - 36.0 | [facility] | | | | | g/dL | [facility] | | | | | | MEDICAL | | | | | | CENTER - | | | | | | LABORATORY | | + + + + + + | RDW-CV | 13.7 | <15.0 % | [facility] | | | | | | [facility] | | | | | | MEDICAL | | | | | | CENTER - | | | | | | LABORATORY | | + + + + + + | RDW-SD | 52.4 (H) | 35.1 - 46.3 fL | [facility] | | | | | | [facility] | | | | | | MEDICAL | | | | | | CENTER - | | | | | | LABORATORY | | + + + + + + | Platelet | 184 | 140 - 440 K/uL | [facility] | | | Count | | | [facility] | | | | | | MEDICAL | | | | | | CENTER - | | | | | | LABORATORY | | + + + + + + | MPV | 10.0 | 6.5 - 12.4 fL | [facility] | | | | | | [facility] | | | | | | MEDICAL | | | | | | CENTER - | | | | | | LABORATORY | | + + + + + + | % | 64.9 | 45.0 - 82.0 % | [facility] | | | Neutrophils | | | [facility] | | | | | | MEDICAL | | | | | | CENTER - | | | | | | LABORATORY | | + + + + + + | % | 23.8 | 20.0 - 45.0 % | [facility] | | | Lymphocytes | | | [facility] | | | | | | MEDICAL | | | | | | CENTER - | | | | | | LABORATORY | | + + + + + + | % Monocytes | 7.9 | 4.0 - 12.0 % | [facility] | | | | | | [facility] | | | | | | MEDICAL | | | | | | CENTER - | | | | | | LABORATORY | | + + + + + + | % | 1.5 | 0.0 - 5.0 % | [facility] [...] [facility] | | | | [facility] | | | | | | [facility]ICAL | | | | | | CENTER - | | | | | | LABORATORY | | + + + + + + | % Immature | 0.8 (H)Comment: | 0.0 - 0.4 % | [facility] | | | Granulocyte | Preliminary studIes have | | [facility] | | | s | indicated the IG% | | MEDICAL | | | | and/or IG# show promise | | CENTER - | | | | as an early screen for | | LABORATORY | | | | infection. | | | | + + + + + + | Absolute | 4.00 | 1.80 - 8.50 | [facility] | | | Neutrophils | | K/uL | [facility] | | | | | | MEDICAL | | | | | | CENTER - | | | | | | LABORATORY | | + + + + + + | Absolute | 1.47 | 0.60 - 3.20 | [facility] | | | Lymphocytes | | K/uL | [facility] | | | | | | MEDICAL | | | | | | CENTER - | | | | | | LABORATORY | | + + + + + + | Absolute | 0.49 | 0.00 - 1.00 | [facility] | | | Monocytes | | K/uL | [facility] | | | | | | MEDICAL | | | | | | CENTER - | | | | | | LABORATORY | | + + + + + + | Absolute | 0.09 | 0.00 - 0.40 | [facility] | | | Eosinophils | | K/uL | [facility] | | | | | | MEDICAL | | | | | | CENTER - | | | | | | LABORATORY | | + + + + + + | Absolute | 0.07 | 0.00 - 0.10 | [facility] | | | Basophils | | K/uL | [facility] | | | | | | MEDICAL | | | | | | CENTER - | | | | | | LABORATORY | | + + + + + + | Absolute | 0.05 (H) | 0.00 - 0.03 | [facility] | | | Immature | | K/uL | [facility] | | | Granulocyte | | | MEDICAL | | | s | | | CENTER - | | | | | | LABORATORY | | + + + + + + | % nRBC | 0 | 0 - 2 per 100 | [facility] | | | | | WBC's | [facility] | | | | | | MEDICAL | | | | | | CENTER - | | | | | | LABORATORY | | + + + + + + | Absolute | 0.00 | 0.00 - 0.01 | [facility] | | | nRBC | | K/uL | [facility] | [...] [address] | [place] | [phone] | | [facility] | | [address] | | | - LABORATORY | | | | + + + + + CT Head wo Contrast (05/07/2018 12:56 PM PST) + + | Specimen | + + | | + + + + + | Narrative | Performed At | + + + | CT HEAD WO CONTRAST 05/07/2018 12:52 PM HISTORY: Pain. | [facility] | | COMPARISON: Multiple priors. PROTOCOL: Axial images of the head | | | were obtained along with coronal and sagittal reformations. | | | FINDINGS: Brain: Chronic right MCA distribution infarct, unchanged. | | | Cortical hyperdensity in the region of the right MCA infarct, | | | likely calcification from laminar necrosis. Chronic left parietal | | | lobe infarct, unchanged. No acute infarct. No intracranial mass. | | | Ventricles and extra-axial fluid spaces: Ex vacuo phenomenon | | | involving the body of the right lateral ventricle, unchanged. No | | | hydrocephalus. Paranasal sinuses and mastoid air cells: Mild | | | mucosal thickening are seen of the ethmoid sinuses. Calvarium and | | | extracranial soft tissues: Hyperostosis frontalis interna, benign. | | | Orbits: Imaged portions of the orbits are normal. IMPRESSION- | | | Chronic findings, as above, without acute intracranial abnormality. | | | A preliminary report was sent by [facility]apper with no significant | | | discrepancy on 05/07/2018 1:12:50 PM. Dictated and Signed by: | | | Ramon Roger MD Electronically signed: 05/07/2018 1:19 PM | | + + + + + | Procedure Note | + + | Maurice, Rad Results In - 05/07/2018 1:[address] HEAD WO CONTRAST 05/07/2018 12:52 PM | | | | HISTORY: Pain. | | | | COMPARISON: Multiple priors. | | | | PROTOCOL: Axial images of the head were obtained along with coronal and sagittal | | reformations. | | | | FINDINGS: | | Brain: Chronic right MCA distribution infarct, unchanged. Cortical | | hyperdensity in the region of the right MCA infarct, likely | | calcification from laminar necrosis. Chronic left parietal lobe | | infarct, unchanged. No acute infarct. No intracranial mass. | | | | Ventricles and extra-axial fluid spaces: Ex vacuo phenomenon involving | | the body of the right lateral ventricle, unchanged. No hydrocephalus. | | | | Paranasal sinuses and mastoid air cells: Mild mucosal thickening are seen of the | | ethmoid sinuses. | | | | Calvarium and extracranial soft tissues: Hyperostosis frontalis interna, benign. | | | | Orbits: Imaged portions of the orbits are normal. | | | | IMPRESSION- | | Chronic findings, as above, without acute intracranial abnormality. | | | | A preliminary report was sent by Order Mapper with no significant discrepancy | | on 05/07/2018 1:12:50 PM. | | | | Dictated and Signed by: Ramon Roger MD | | Electronically signed: 05/07/2018 1:19 PM | + + + +---------+ + + | Performing | Address | City/State/Zipcode | Phone Number | | Organization | | | | + +---------+ + + | [facility] | | | | + +---------+ + + XR Chest AP Portable (05/07/2018 12:56 PM PST) + + | Specimen | + + | | + + + + + | Narrative | Performed At | + + + | XR CHEST AP PORTABLE 05/07/2018 12:23 PM HISTORY: SHORTNESS OF | [facility] | | BREATH WEAKNESS HEADACHE (ADULT - RECURRENT OR KNOWN DX MIGRAINES). | | | COMPARISON: Multiple priors. Findings: Heart size is within | | | normal limits. There is atherosclerosis of the aorta. Mediastinum | | | demonstrates no acute findings. Central pulmonary vasculature is | | | normal. The bilateral lungs are clear with no evidence for pleural | | | effusion or pneumothorax. Mild spondylosis is seen. There are clips | | | in the left abdomen. IMPRESSION - No acute findings. Dictated | | | and Signed by: Ramon Roger MD Electronically signed: 05/07/2018 | | | 3:31 PM | | + + + + + | Procedure Note | + + | Maurice, Rad Results In - 05/07/2018 3:35 PM PST XR CHEST AP PORTABLE 05/07/2018 12:23 PM | | | | HISTORY: SHORTNESS OF BREATH | | WEAKNESS | | HEADACHE (ADULT - RECURRENT OR KNOWN DX MIGRAINES). | | | | COMPARISON: Multiple priors. | | | | Findings: | | Heart size is within normal limits. There is atherosclerosis of the aorta. | | Mediastinum demonstrates no acute findings. Central pulmonary vasculature is | | normal. The bilateral lungs are clear with no evidence for pleural effusion or | | pneumothorax. Mild spondylosis is seen. There are clips in the left abdomen. | | | | IMPRESSION - | | No acute findings. | | | | Dictated and Signed by: Ramon Roger MD | | Electronically signed: 05/07/2018 3:31 PM | + + + +---------+ + + | Performing | Address | City/State/Zipcode | Phone Number | | Organization | | | | + +---------+ + + | [facility] | | | | + +---------+ + + ECG 12 lead (05/07/2018 12:01 PM PST) + + + + + + | Component | Value | Ref Range | Performed | Pathologist | | | | | At | Signature | + + + + + + | VENTRICULAR | 59 | BPM | [facility] | | | RATE EKG | | | | | + + + + + + | ATRIAL RATE | 59 | BPM | [facility] | | + + + + + + | P-R | 184 | ms | [facility] | | | INTERVAL | | | | | + + + + + + | QRS | 70 | ms | [facility] | | | DURATION | | | | | + + + + + + | Q-T | 434 | ms | [facility] | | | INTERVAL | | | | | + + + + + + | Q-T | 429 | ms | [facility] | | | INTERVAL | | | | | | (CORRECTED) | | | | | + + + + + + | P WAVE AXIS | 70 | degrees | [facility] | | + + + + + + | QRS AXIS | 65 | degrees | [facility] | | + + + + + + | T AXIS | 69 | degrees | [facility] | | + + + + + + | INTERPRETAT | Sinus bradycardiaSeptal | | [facility] | | | ION TEXT | infarct , age | | | | | | undeterminedAbnormal | | | | | | ECGWhen compared with | | | | | | ECG of 08-OCT-2017 | | | | | | 10:48,Septal infarct is | | | | | | now presentinitial QRS | | | | | | forces have changed in | | | | | | lead [id number] by | | | | | | NATHANAEL AGOSTO MD ([id number]) | | | | | | on 05/08/2018 7:49:50 AM | | | | + + [...] + | Diagnosis | + + | Confusion - Primary Unspecified psychosis | + + documented in this encounter Administered Medications + +--------+ +--------+------+------+ | Medication Order | MAR | Action | Dose | Rate | Site | | | Action | Date | | | | + +--------+ +--------+------+------+ | LORazepam (ATIVAN) injection | Given | 05/07/19 | 0.5 mg | | | | 0.5 mg 0.5 mg, Intravenous, | | 19 12:30 | | | | | ONCE, 05/07/18 at 1225, For 1 | | PM PST | | | | | dose | | | | | | + +--------+ +--------+------+------+ +---+---+ | | | +---+---+ + +---------+ +---------+-------+---+ | sodium chloride 0.9% (NS) bolus | New Bag | 05/07/19 | 500 mLs | 500 | | | 500 mL 500 mL, Intravenous, | | 19 12:30 | | mL/hr | | | Administer over 1 Hours, ONCE, | | PM PST | | | | | 05/07/18 at 1225, For 1 dose | | | | | | + +---------+ +---------+-------+---+ +---+---+ | | | +---+---+ documented in this encounter"
--- OUTSIDE RECORDS SUMMARY | ~2020-02-03 | XMS | Encounter Summary ---
Demographics + + + | Address | [address] | | | [place] [address] | + + + | Home Phone [...] + + + | Author | [facility] | | | and [place] | + + + | Organization | [facility] | | [...] Team Providers + +------+ + | Care Car Repairer Helper Name | Role | Phone | + +------+ + | Ole Madden DO | PCP | | + +------+ + Encounter Details +--------+ + + + + | Date | Type | Department | Care Team | Description | +--------+ + + + + | 07/25/ | Hospital | [facility] | Lori Saba Jorge Luis, | Precordial pain | | 2016 - | Encounter | MED CTR ICU [address] | MD [address] | (Primary Dx); | | | | [place], | [place], [place] | Coronary artery | | 07/27/ | | [place] [address] | [address] | calcification seen | | 2015 | | [phone] | | on CAT scan; | | | | | Tomas Hernandez | Diabetes type 2, | | | | | IV, 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 ([facility]); | | | | | [address] [place], | Murmur, cardiac; | | | | | [place] [address] | Aortic valve | | | | | [phone] | stenosis, etiology | | | | | | of cardiac valve | | | | | | disease unspecified; | | | | | | NSTEMI (non-ST | | | | | | elevated myocardial | | | | | | infarction) ([facility]) | +--------+ + + + + Social [...] + + + | Blood Pressure | 151/63 | 07/28/2015 11:34 AM | | | | | PDT | | + + + + + | Pulse | 67 | 07/28/2015 11:34 AM | | | | | PDT | | + + + + + | Temperature | 36.6 C (97.9 F) | 07/28/2015 11:34 AM | | | | | PDT | | + + + + + | Respiratory Rate | 19 | 07/28/2015 11:34 AM | | | | | PDT | | + + + + + | Oxygen Saturation | 97% | 07/28/2015 11:34 AM | | | | | PDT | | + + + + + | Inhaled Oxygen | - | - | | | Concentration | | | | + + + + + | Weight | 72.4 kg (159 lb 9.8 | 07/28/2015 5:00 AM | | | | oz) | [...] Hernandez MD - 07/28/2015 9:57 AM PDT [facility] DISCHARGE SUMMARY Pt. Name/Age/: Le Rollins 70 [...] tablet lisinopril-hydrochlorothiazide 20-25 MG per tablet aka: ZIDEPAVANSTORETIC DISCHARGE INSTRUCTIONS: Follow-up Information Follow up with Maryan Velasquez MD. Specialty: Cardiology Why: call office wednesday for follow up in approximately 2 weeks Contact information: [address] [place] [address] RESULTS: Show images for CV Adult Cardiac Cath Diag/PCI Visit Information Location Encounter # 07/26/2015 14:55 [facility] [id number] 07/27/2015 13:45 - Иван Kaur MD Narrative & Impression CARDIAC CATHETERIZATION and CORONARY ANGIOGRAPHY PATIENT NAME/:Le Rollins, ([birth year] 47) DATE OF PROCEDURE:07/27/2015 A P MECHANIC:Иван Cruz MD PROCEDURES PERFORMED: Coronary Angiography Left [...] stenosis on its mid segment , lar ge acute margina lbranch has 90% stenosis on its mid segment.. [...] over a wire and used a 6 Monegasque JR4 guide catheter and perform selective cannulation [...] branch from RCA. 07/27/2015 13:17 - Aleksandr Muro MD Narrative & Impression [facility] ECHOCARDIOGRAM REPORT STUDY DATE: 07/26/2015 PATIENT NAME: [...] arm and neck and was evaluated at [place]' emergency room with a recent history of [...] at 8 AM and 11:30 AM at [facility] and on arrival here had an initial [...] family requested that she be transferred to [facility] for further [facility] therapies and recovery from her total knee arthroplasty. The patient had been given a spirin 325 mg twice daily for DVT prophylaxis associated with her total knee replacement per Dr. Fernandez's recommendations. I reduced her dose to 325 mg once daily with the addition of clopidogrel 75 mg daily. The patient will need to be on clopidogrel for one year and on ronic aspirin therapy following PCI. She should see Dr. Maryan Velasquez in cardiology follow- up in approximately 2 weeks following discharge. The patient's antihypertensive regimen smita or to admission was Zestoretic, 20/25, one daily and amlodipine 2.5 mg daily. [...] this with her new PCP Dr. Michael navarro noting she has had trouble with statins [...] signed by: Aidan Hernandez MD, 07/28/2015 9:57 [facility] Portions of this chart may have been created with [employer] voice recognition software. Occasi onal wrong-word or [...] with patient. Discharge plans include admission to [facility] in [place] for rehab services. Report called to RN at [facility]. Иван Daley MD - 07/28/2015 9:03 AM Arnie ward of this note might be different from the original. PATIENT NAME: Le Rollins : 1945: AGE: 70 y.o. PRIMARY CARE: Ole Madden DO ICU FOLLOW UP VISIT Date of Service: 07/28/15 HISTORY OF PRESENT ILLNESS: Le Rollins is a 70 y.o. female transferred from [facility] with NSTEMI S/P PCI to the [facility] with a 2.5x12 mm IGNACIA. Doing well, [...] BID Иван rodríguez MD 12.5 mg at 07/27/152029 nitroglycerin (NITROSTAT) SL tablet 0.4 mg 0.4 [...] No significant change was found Confirmed by TRINY WEBBER, NATHANAEL ([id number]) on 07/28/2015 8:54:23 AM Troponin I Result [...] weeks. Electronically signed by: Иван Cruz MD [facility] 07/28/2015 Rebecca Perry MD - 07/27/2015 9:09 PM PDTFormatting of this note might be different from the [facility]G Hospitalist Progress Note Le Rollins is a [...] lb) Intake/Output Summary (Last 24 hours) at 07/27/15 2110 Last data filed at 07/27/15 2000 Gross per 24 hour Intake 1285 ml [...] as outlined above. Aidan Hernandez 07/27/2015 21:10 [facility] Portions of this chart may have been created with [employer] voice recognition software. Occasi onal wrong-word or sound-alike substitutions may have occurred due to the inherent dhillon itations of voice recognition software. Please read the chart carefully and recognize, using context, where these substitutions have occurred Tanya Conde R N - 07/27/2015 5:45 PM PDTPt c/o increased pain in R knee, with no relief from Tylenol. Of fered [place], but pt hesitant to use narcotics. Had tried ice pack to knee, as well, without relief. Pt finally decided to try [place] for knee pain. Up walking in hallway [...] Echocardiogram. Electronically signed by: Иван Cruz MD [facility] 07/27/2015 Portions of this chart may have been created with [employer] voice recognition software. Occasi onal wrong-word or sound-alike substitutions may have occurred due to the inherent dhillon itations of voice recognition software. Please read the chart carefully and recognize, using context, where these substitutions have occurred. cTanya Serrato RN - 07/27/2015 11:45 AM PDTPt returned from [facility]. Alert, oriented and talkin g. No pain. No anxiety noted. Aidan Perry MD - 07/26/2015 7:25 PM PDTHospitalist follow-up This patient was referred from [facility] with negative troponins at 8 AM [...] 10 days ago who was referred from [place] with history of ep isodes of chest [...] partial 1985 Thyroidectomy 2004 Gastric bypass surgery 2011 Total knee arthroplasty Right 07/16/2015 CURRENT PROBLEMS [...] Lori Saba MD 2.5 mg at 0 07/26/15 1725 aspirin tablet 325 mg 325 mg Oral BID Lori Saba MD dextrose 50% injection 12.5 g 12.5 g Intravenous PRN Lori Saba MD diphenhydrAMINE (BENADRYL) tablet 25 mg 25 mg Oral Q6H PRN Lori Saba MD DULoxetine (CYMBALTA) DR capsule 60 mg 60 mg Oral Daily Lori Saba MD 60 mg at 07/26/15 1721 [...] am. Electronically signed by: Иван Cruz MD [facility] 07/26/2015 Portions of this chart may have been created with [employer] voice recognition software. Occasi onal wrong-word or sound-alike substitutions may have occurred due to the inherent dhillon itations of voice recognition software. Please read the chart carefully and recognize, using context, where these substitutions have occurred. documented in this encounter H&P Notes Lori Saba MD - 07/26/2015 4:05 PM PDTFormatting of this note might be different fr om the original. [facility] HISTORY AND PHYSICAL Pt. Name/Age/: [...] on CT of her chest done at [facility] that ruled o ut a PE. The [...] Laterality Date Tonsillectomy and adenoidectomy 1950 Appendectomy 1959 Hysterectomy, total abdominal 1973 Cholecystectomy 1988 Right knee arthroscopy 1989 Uvulopalatopharygoplasty 1988 Thyroidectomy, partial 1985 Thyroidectomy 2005 Gastric bypass surgery 2012 Total knee arthroplasty Right 07/16/2015 Procedure: Right Total Knee Arthroplasty; Surgeon: Jordin Fernandez MD; Location: [facility] FAMILY HISTORY: family history includes Heart disease [...] signed by: Lori Saba MD 07/26/2015 16:05 [facility] Portions of this chart may have been created with [employer] voice recognition software. Occasi onal wrong-word or sound-alike substitutions may have occurred due to the inherent dhillon itations of voice recognition software. Please read the chart carefully and recognize, using context, where these substitutions have occurred documented in this e ncounter Miscellaneous Notes Plan of Care - Ricky Spears LICSW - 07/28/2015 11:15 AM PDTArrangements made for t he patient to be discharged to [facility] an SNF in [place]. Patient received he r medicare important message. Demographics, SNF orders, DC summary, scripts, and PASRR faxe d to [facility]. Patient's son will transport her.Electronically signed by: CHIVO Ward 07/28/2015 11:20 NF Transfer - Aidan Hernandez MD - 07/28/2015 9:52 AM PDTFormatting of this n ote might be different from the original. ASSISTED FACILITY TRANSFER ORDERS Patient Name: Le Rollins Patient : 1945 Gender: female Date of Admission: 07/26/2015 Date of Discharge: 07/28/2015 Admitting Provider: Lori Saba MD Discharging Provider: Aidan Hernandez MD Consultants: Иван Huerta MD PCP: [facility] SNF transferring to: [facility] skilled care Provider after transfer: Wilson Maloney M.D. CODE STATUS: [x] Attempt CPR [] Do not resuscitate If patient is pulseless and not breathing, RN/PUBLIC HEALTH REGISTRAR may pronounce . Advanced Directives included: [] [...] for this patient. Diet: [] As tolerated LIMB DRIVER may upgrade or downgrade diet as condition [...] [x] OT Evaluation & Management for: [] LIMB DRIVER Evaluation &Management for: [] Other: Wound/Skin Care: [] Follow current recommendations of the wound team for treatment. [] Follow standard nursing protocols for wound care. [] Wound Vac management per nursing protocol. Indication: Location: Settings: Change frequency: & prn [x] Other: Check glucoscans twice a day before breakfast and evening meals Follow up appointments and consultations: Date/Time: Dr. Date/Time I have advised this patient that [...] Aidan Hernandez MD, certify that post hospital prison care is medically necessa ry on a continuing basis for any of the conditions for which he/she received care during thi s hospitalization. Check one: [x] Skilled [] Intermediate Additional Orders/Instructions: Physician's signature: 07/28/2015 9:52 [facility] USE ONLY: [] Admitting orders verbally reviewed with Admitting Physician, modified where appropriate, and approved. Verbal Order from Date: Time: _ RN name: RN signature: [] Admitting orders reviewed, modified where appropriate, and approved. Physician's signature: Date: Time: lan of Care - Srinath Fletcher FOUNDRY LABORER COREROOM - 07/27/2015 6:20 PM PDTFormatting of this [...] 2 8-11 3 12-14 4 15+ 5 field care coordinator score 2 No interventions at this time Patient states sleep study showed no sleep apnea, she is not treated with a sleep apnea dev ice at home She states she has lost over 100 pounds, but family says still snores at times. Does not wear oxygen at home Denies shortness of breath lan of Care - [facility] Tanya kenney RN - 07/27/2015 5:57 PM PDTProblem: Patient [...] well. TR band in place 11ml AIR. electroplater automatic in place . edation Documenta tion - [...] h ad chest pain and went into [facility] where she was the admitted into the ICU at [facility]. She states she thought that she would do ok when discharged home after her knee surgery. Ho wever, now she does not want to return to home, she states she would like to go to [facility] in [place] for rehab prior to returning to home. The have already discussed this with Lisandro dewitt and [facility] is holding a bed. Ms Rollins states her son Anderson will be her transportation to [place] when she is medica lly stable for discharge. Anderson states he will be her transportation to [place] and her c ontact person for any information. I have faxed a referral packet to [place], [place] [id number] Electronically signed by: Veda Rawls RN 07/27/2015 9:27 lan of Care - Jeff Rockwell Kadi, FOUNDRY LABORER COREROOM - 07/26/2015 6:15 PM PDT Problem: Patient [...] | | | | | | [employer] | | | | | [...] + | [facility] | [address] | [place] | [phone] | | [facility] | | [address] | | | - LABORATORY | | | | + + + + + Troponin I (07/28/2015 5:09 AM PDT) + + + + + + | Component | Value | Ref Range | Performed | Pathologist | | | | | At | Signature | + + + + + + | Troponin I | 0.51 ()Comment: | <0.06 ng/mL | [facility] | | | | Reference | | [facility] | | | | Ranges:0.00-0.06 = [...] | | | | | results. [employer] | | | | | | [employer] [...] + | [facility] | [address] | [place] | [phone] | | [facility] | | [address] | | | - LABORATORY | | [...] | | Lymphocytes | | | [facility] | | | | | | MEDICAL [...] | | Lymphocytes | | K/uL | [facility] | | | | | | MEDICAL | | | | | | CENTER - | | | | | | LABORATORY | | + + + + + + | Absolute | 1.00 | 0.00 - 1.00 | [facility] | | | Monocytes | | K/uL | [facility] | | | | [...] + | [facility] | [address] | [place] | [phone] | | [facility] | | [address] | | | - LABORATORY | | [...] | | | | | mg/dL | [facility] | | | | | | MEDICAL | | | | | | CENTER - | | | | | | LABORATORY | | + + + + + + | eGFR, | >60Comment: GLOMERULAR | >=60 | [facility] | | | non- | FILTRATION | mL/min/1.73m2 | [facility] | | | [place] | RATE,ESTIMATED | | MEDICAL | | | | mL/min/1.83y3Emgb than | | CENTER - | | [...] | | | | | mg/dL | [facility] | | | | | | MEDICAL | | | | | | CENTER - | | | | | | LABORATORY | | + + + + + + | BUN/Creatin | 12.1 | | [facility] | | | ine Ratio | | | [facility] | | [...] | + + + + + | [facility] | [address] | [place] | [phone] | | [facility] | | [address] | | | - LABORATORY | | | | + + + + + CK Total (07/28/2015 5:09 AM PDT) + +-------+ + + + | Component | Value | Ref Range | Performed | Pathologist | | | | | At | Signature | + +-------+ + + + | CK TOTAL | 50 | 22 - 269 U/L | [facility] | | | | | [...] + | [facility] | [address] | [place] | [phone] | | [facility] | | [address] | | | - LABORATORY | | | | + + + + + Troponin I (07/27/2015 11:05 PM PDT) + + + + + + | Component | Value | Ref Range | Performed | Pathologist | | | | | At | Signature | + + + + + + | Troponin I | 0.53 ()Comment: | <0.06 ng/mL | [facility] | | | | Reference | | [...] | | | | | results. [employer] | | | | | | [employer] [...] + + | [facility] | [address] | [place] | [phone] | | [facility] | | [address] | | | - LABORATORY | | [...] | | | POC | | | [facility] | | | [...] [address] | [place] | [phone] | | [facility] | | [address] | | | - LABORATORY | | | | + + + + + POC Glucose (07/27/2015 5:34 PM PDT) + +-------+ + + + | Component | Value | Ref Range | Performed | Pathologist | | | | | At | Signature | + +-------+ + + + | Glucose, | 131 | 70 - 150 mg/dL | [facility] [...] + | [facility] | [address] | [place] | [phone] | | [facility] | | [address] | | | - LABORATORY | | | | + + + + + Troponin I (07/27/2015 5:07 PM PDT) + + + + + + | Component | Value | Ref Range | Performed | Pathologist | | | | | At | Signature | + + + + + + | Troponin I | 0.61 ()Comment: | <0.06 ng/mL | [facility] | | | | Consistent with previous | | [facility] | | | | results. Reference | [...] | | | | | | [employer] | | | | | [...] | + + + + + | [facility] | [address] | [place] | [phone] | | [facility] | | [address] | | | - LABORATORY | | [...] | | | | NATHANAEL AGOSTO MD ([id number]) | | | | | | on [...] + | [facility] | [address] | [place] | [phone] | | [facility] | | [address] | | | - LABORATORY | | | | + + + + + Lipid Panel (07/27/2015 11:56 AM PDT) + + + + + + | Component | Value | Ref Range | Performed | Pathologist | | | | | At | Signature | + + + + + + | Triglycerid | 68 | 35 - 160 mg/dL | [facility] | | | es | | | [facility] | | | | | | MEDICAL | | | | | | CENTER - | | | | | | LABORATORY | | + + + + + + | Cholesterol | 178 | 150 - 200 mg/dL | [facility] | | | | | | [facility] | | | | | | MEDICAL | | | | | | CENTER - | | | | | | LABORATORY | | + + + + + + | HDL | 56Comment: New HDL | 28 - 83 mg/dL | [facility] | | | | Reference Range as [...] | | Ratio | | | [facility] | | | | | | MEDICAL | | | | | | CENTER - | | | | | | LABORATORY | | + + + + + + | LDL, | 108 | <=130 mg/dL | [facility] | | | Calculated | | | [facility] | | [...] ST. | [address] | [place], [place] | [phone] | | [facility] | | [address] | | | - LABORATORY | | [...] | | | | | | [employer] | | | | | [...] [address] | [place] | [phone] | | [facility] | | [address] | | | - LABORATORY | | [...] (1945) MEDICAL RECORD NUMBER: | | | [id number] DATE OF PROCEDURE: 07/27/2015 A P MECHANIC: | | | Иван Cruz MD PROCEDURES [...] and used | | | a 6 Monegasque JR4 guide catheter and perform selective cannulation [...] + + | Performing | Address | City/[facility] | Phone Number | | Organization | [...] | Clotting | | second(s) | [facility] | | | Time, POC | | [...] + | [facility] | [address] | [place] | [phone] | | [facility] | | [address] | | | - LABORATORY | | [...] | Clotting | | second(s) | [facility] | | | Time, POC | | [...] + | [facility] | [address] | [place] | [phone] | | [facility] | | [address] | | | - LABORATORY | | | | + + + + + PTT (07/27/2015 5:15 AM PDT) + + + + + + | Component | Value | Ref Range | Performed | Pathologist | | | | | At | Signature | + + + + + + | aPTT | 104 ()Comment: | 22 - 36 seconds | [facility] | | | | Critical Result called | | [facility] | | | | to and read [...] [address] | [place] | [phone] | | [facility] | | [address] | | | - LABORATORY | | [...] | | | | | | [employer] | | | | | [...] [address] | [place] | [phone] | | [facility] | | [address] | | | - LABORATORY | | [...] | | | Cells | | | [facility] | | | | | | MEDICAL | | | | | | CENTER - | | | | | | LABORATORY | | + + + + + + | Red Blood | 4.12 | 3.70 - 5.20 | [facility] | | | Cells | | M/uL | [facility] | | | | | | MEDICAL [...] + | [facility] | [address] | [place] | [phone] | | [facility] | | [address] | | | - LABORATORY | | [...] 12 | 7 - 18 mg/dL | [facility] | | | | | | [facility] | | | | | | MEDICAL | | | | | | CENTER - | | | | | | LABORATORY | | + + + + + + | Creatinine | 0.64 | 0.60 - 1.30 | [facility] | [...] mL/min/1.73m2 | [facility] | | | [place] | RATE,ESTIMATED | | MEDICAL | | | | mL/min/1.03w9Jczh than | | CENTER - | | [...] | ine Ratio | | | [facility] | | [...] | [address] | [place] | [phone] | | [facility] | | [address] | | | - LABORATORY | | | | + + + + + Magnesium (07/27/2015 5:15 AM PDT) + +-------+ + + + | Component | Value | Ref Range | Performed | Pathologist | | | | | At | Signature | + +-------+ + + + | Magnesium | 1.8 | 1.8 - 2.5 mg/dL | [facility] | | | | | [...] [address] | [place] | [phone] | | [facility] | | [address] | | | - LABORATORY | | [...] The | | | | | | [employer] | | | | | [...] + + | Performing | Address | City/State/[facility] | Phone Number | | Organization | | | | + + + + + | [facility] | [address] | [place] | [phone] | | [facility] | | [address] | | | - LABORATORY | | | | + + + + + PTT (07/26/2015 9:55 PM PDT) + +-------+ + + + | Component | Value | Ref Range | Performed | Pathologist | | | | | At | Signature | + +-------+ + + + | aPTT | 33 | 22 - 36 seconds | [facility] | | | | | | [facility] [...] + | [facility] | [address] | [place] | [phone] | | [facility] | | [address] | | | - LABORATORY | | [...] | | Time | | seconds | [facility] | | | | [...] + | [facility] | [address] | [place] | [phone] | | [facility] | | [address] | | | - LABORATORY | | [...] [address] | [place] | [phone] | | [facility] | | [address] | | | - LABORATORY | | | | + + + + + ECHO Complete (07/26/2015 8:20 PM PDT) + + | Specimen | + + | | + + + + + | Narrative | Performed At | + + + | [facility] ECHOCARD[facility]GRAM REPORT | | | STUDY DATE: 07/26/2015 PATIENT NAME: Le Rollins : | | | 1945 PCP: Ole Madden, DO | | | CLINICAL HISTORY/DIAGNOSIS: MURMUR, [...] Signed by: Macy Muro MD PhD FACC | | | 07/26/2015 20:21 Brainer: Rajat Leon RDCS, | | | RVT, RDMS | [...] | | | | NATHANAEL AGOSTO MD ([id number]) | | | | | | on [...] | | | | NATHANAEL AGOSTO MD ([id number]) | | | | | | on [...] | | | | | | [employer] | | | | | [...] Comment | Comment: Critical Result | | [facility] | | | | called to and read back | | [facility] | | | | by TANYA King/SOO | | MEDICAL | | | | on 07/26/2015 at 18:02 by | | [facility] | | | | Elian Olson. | [...] [address] | [place] | [phone] | | [facility] | | [address] | | | - LABORATORY | | | | + + + + + Culture, MRSA (07/26/2015 3:25 PM PDT) + + + + + + | Component | Value | Ref Range | Performed | Pathologist | | | | | At | Signature | + + + + + + | Culture | Negative for MRSA by | | [facility] | | | | chromogenic agar method | | [facility] | | | [...] [address] | [place] | [phone] | | [facility] | | [address] | | | - LABORATORY | | [...] + | Diagnosis | + + | Precordial pain | + + | Coronary artery calcification seen on CAT scan Coronary atherosclerosis of | | unspecified type of vessel, [place] or graft | + + | Diabetes type 2, controlled ([facility]) Type II or unspecified type diabetes mellitus | | without mention of complication, not stated as uncontrolled | + + | Murmur, cardiac Undiagnosed cardiac murmurs | + + | Aortic valve stenosis, etiology of cardiac valve disease unspecified | + + | NSTEMI (non-ST elevated myocardial infarction) ([facility]) Acute myocardial infarction, | | subendocardial infarction, episode of care unspecified | + + | NEHEMIAH (obstructive sleep apnea) Obstructive sleep apnea (adult) (pediatric) | + + | Hypertension Unspecified essential hypertension | + + | Asthma Unspecified asthma | + + | Chest pain Chest pain, unspecified | + + documented in this encounter Administered Medications + +--------+ +--------+------+------+ | Medication Order | MAR | Action | Dose | Rate | Site | | | Action | Date | | | | + +--------+ +--------+------+------+ | acetaminophen (TYLENOL) tablet | Given | 07/27/19 | 650 mg | | | | 650 mg 650 mg, Oral, EVERY 6 | | 16 4:14 | | | | | HOURS PRN, Pain, Starting Fri | | PM PDT | | | | | 07/26/15 at 2044 | | | | | | + +--------+ +--------+------+------+ +-------+ +--------+---+---+ | Given | 07/27/19 | 650 mg | | | | | 16 4:39 | | | | | | AM PDT | | | | +-------+ +--------+---+---+ | Given | 07/26/19 | 650 mg | | | | | 16 8:59 | | | | | | PM PDT | | | | +-------+ +--------+---+---+ +---+---+ | | | +---+---+ + +---------+ + +--------+---+ | adenosine (diagnostic) | New Bag | 07/27/19 | 140 | 608.2 | | | (ADENOSCAN) 90 mg in sodium | | 16 10:58 | mcg/kg/m | mL/hr | | | chloride 0.9% 90 mL CVL mixture | | AM PDT | in | | | | 90 mg, CONTINUOUS PRN, Starting | | | | | | | 07/27/15 at 1058 | | | | | | + +---------+ + +--------+---+ +---+---+ | | | +---+---+ + +-------+ +--------+---+---+ | amLODIPine (NORVASC) tablet 2.5 | Given | 07/28/19 | 2.5 mg | | | | mg 2.5 mg, Oral, DAILY, First | | 16 9:55 | | | | | dose on Wed07/26/15 at 1730 | | AM PDT | | | | + +-------+ +--------+---+---+ +-------+ +--------+---+---+ | Given | 07/27/19 | 2.5 mg | | | | | 16 8:41 | | | | | | AM PDT | | | | +-------+ +--------+---+---+ | Given | 07/26/19 | 2.5 mg | | | | | 16 5:25 | | | | | | PM PDT | | | | +-------+ +--------+---+---+ +---+---+ | | | +---+---+ + +-------+ +-------+---+---+ | aspirin chewable tablet 81 mg | Given | 07/28/19 | 81 mg | | | | 81 mg, Oral, DAILY, First dose on | | 16 9:56 | | | | | 07/28/15 at 0900, | | AM PDT | | | | | Post-op/Phase II | | | | | | + +-------+ +-------+---+---+ +---+---+ | | | +---+---+ + +-------+ +--------+---+---+ | aspirin tablet 325 mg 325 mg, | Given | 07/27/19 | 325 mg | | | | Oral, 2 TIMES DAILY, First dose | | 16 8:40 | | | | | on Wed07/26/15 at 2100 | | AM PDT | | | | + +-------+ +--------+---+---+ +-------+ +--------+---+---+ | Given | 07/26/19 | 325 mg | | | | | 16 8:25 | | | | | | PM PDT | | | | +-------+ +--------+---+---+ +---+---+ | | | +---+---+ + +-------+ +--------+---+---+ | clopidogrel (PLAVIX) tablet 600 | Given | 07/26/19 | 600 mg | | | | mg 600 mg, Oral, ONCE, Wed | | 16 7:43 | | | | | 07/26/15 at 1945, For 1 dose | | PM PDT | | | | + +-------+ +--------+---+---+ +---+---+ | | | +---+---+ + +-------+ +-------+---+---+ | clopidogrel (PLAVIX) tablet 75 | Given | 07/27/19 | 75 mg | | | | mg 75 mg, Oral, DAILY, First | | 16 8:40 | | | | | dose on 07/27/15 at 0900, For | | AM PDT | | | | | 30 doses | | | | | | + +-------+ +-------+---+---+ +---+---+ | | | +---+---+ + +-------+ +-------+---+---+ | clopidogrel (PLAVIX) tablet 75 | Given | 07/28/19 | 75 mg | | | | mg 75 mg, Oral, DAILY, First | | 16 9:56 | | | | | dose on 07/27/15 at 1200, Do | | AM PDT | | | | | not give if already taken today, | | | | | | | Post-op/Phase II | | | | | | + +-------+ +-------+---+---+ +---+---+ | | | +---+---+ + +-------+ +-------+---+---+ | DULoxetine (CYMBALTA) DR | Given | 07/28/19 | 60 mg | | | | capsule 60 mg 60 mg, Oral, | | 16 9:55 | | | | | DAILY, First dose on Wed07/26/15 | | AM PDT | | | | | at 1730, Do not open capsule., | | | | | | + +-------+ +-------+---+---+ +-------+ +-------+---+---+ | Given | 07/27/19 | 60 mg | | | | | 16 8:40 | | | | | | AM PDT | | | | +-------+ +-------+---+---+ +---+---+ | | | +---+---+ + +-------+ +--------+---+---+ | fentaNYL injection PRN, | Given | 07/27/19 | 25 mcg | | | | Starting 07/27/15 at 0959 | | 16 10:42 | | | | | | | AM PDT | | | | + +-------+ +--------+---+---+ +-------+ +--------+---+---+ | Given | 07/27/19 | 25 mcg | | | | | 16 10:29 | | | | | | AM PDT | | | | +-------+ +--------+---+---+ | Given | 07/27/19 | 50 mcg | | | | | 16 9:59 | | | | | | AM PDT | | | | +-------+ +--------+---+---+ +---+---+ | | | +---+---+ + +-------+ +--------+---+---+ | heparin 1,000 units/mL | Given | 07/26/19 | 4,000 | | | | injection 2,000-5,000 Units | | 16 11:15 | Units | | | | 2,000-5,000 Units, Intravenous, | | PM PDT | | | | | PRN, Protocol/Titration, Starting | | | | | | | 07/26/15 at 2135, Use actual | | | | | | | body weight to calculate dose | | | | | | | Round infusion dose to nearest 50 | | | | | | | units/hr. Round bolus dose to | | | | | | | nearest 100 units. CARDIAC DOSE | | | | | | | HEPARIN PROTOCOL STARTING | | | | | | | heparin infusion dose 850 | | | | | | | units/hr (12 units/kg/hr, initial | | | | | | | rate max 1,000 units/hr). Draw | | | | | | | APTT from an IV site other than | | | | | | | heparin IV site 6 hours after | | | | | | | starting a heparin infusion. | | | | | | | PTT Nomogram for ADJUSTING | | | | | | | heparin APTT < 46 seconds: | | | | | | | Bolus 4,000 units & increase | | | | | | | rate by 200 units/hr Repeat | | | | | | | APTT 6 hr after change APTT | | | | | | | 46-60 seconds: Bolus 2,000 | | | | | | | units & increase rate by 100 | | | | | | | units/hr Repeat APTT 6 hr after | | | | | | | change APTT 61-98 seconds: No | | | | | | | bolus or rate change. Repeat | | | | | | | in AM. APTT 99-126 seconds: | | | | | | | Decrease rate by 100 units/hr | | | | | | | Repeat APTT 6 hr after change | | | | | | | APTT 127-149 seconds: Stop | | | | | | | infusion 60 minutes then recheck | | | | | | | APTT. When APTT is 126 or less, | | | | | | | restart heparin at decreased | | | | | | | rate by 200 units/hr. Repeat | | | | | | | APTT 6 hr after change., | | | | | | + +-------+ +--------+---+---+ +---+---+ | | | +---+---+ + +-------+ +--------+---+---+ | heparin 1,000 units/mL | Given | 07/27/19 | 5,000 | | | | injection PRN, Starting Sat | | 16 10:26 | Units | | | | 07/27/15 at 1026 | | AM PDT | | | | + +-------+ +--------+---+---+ +---+---+ | | | +---+---+ + + + + + +---+ | heparin in half-normal saline | Rate/Dos | 07/27/19 | 900 | 18 mL/hr | | | 50 units/mL infusion 0-3,000 | e Change | 16 6:58 | Units/hr | | | | Units/hr (0-60 mL/hr), at 0-60 | | AM PDT | | | | | mL/hr, Intravenous, TITRATED, | | | | | | | Starting 07/26/15 at 2200, Use | | | | | | | actual body weight to calculate | | | | | | | dose Round infusion dose to | | | | | | | nearest 50 units/hr. Round bolus | | | | | | | dose to nearest 100 units. | | | | | | | CARDIAC DOSE HEPARIN PROTOCOL | | | | | | | STARTING heparin infusion dose | | | | | | | 850 units/hr (12 units/kg/hr, | | | | | | | initial rate max 1,000 units/hr). | | | | | | | Draw APTT from an IV site other | | | | | | | than heparin IV site 6 hours | | | | | | | after starting a heparin | | | | | | | infusion. PTT Nomogram for | | | | | | | ADJUSTING heparin APTT < 46 | | | | | | | seconds: Bolus 4,000 units & | | | | | | | increase rate by 200 units/hr | | | | | | | Repeat APTT 6 hr after change | | | | | | | APTT 46-60 seconds: Bolus 2,000 | | | | | | | units & increase rate by 100 | | | | | | | units/hr Repeat APTT 6 hr after | | | | | | | change APTT 61-98 seconds: No | | | | | | | bolus or rate change. Repeat | | | | | | | in AM. APTT 99-126 seconds: | | | | | | | Decrease rate by 100 units/hr | | | | | | | Repeat APTT 6 hr after change | | | | | | | APTT 127-149 seconds: Stop | | | | | | | infusion 60 minutes then recheck | | | | | | | APTT. When APTT is 126 or less, | | | | | | | restart heparin at decreased | | | | | | | rate by 200 units/hr. Repeat | | | | | | | APTT 6 hr after change., | | | | | | + + + + + +---+ +---------+ + + +---+ | New Bag | 07/26/19 | 1,000 | 20 mL/hr | | | | 16 11:16 | Units/hr | | | | | PM PDT | | | | +---------+ + + +---+ +---+---+ | | | +---+---+ + +-------+ +---------+---+---+ | HYDROcodone-acetaminophen | Given | 07/28/19 | 2 | | | | (NORCO) 5-325 mg per tablet 1-2 | | 16 9:54 | tablets | | | | tablet 1-2 tablet, Oral, EVERY 4 | | AM PDT | | | | | HOURS PRN, Pain, Starting Fri | | | | | | | 07/26/15 at 1659, If ineffective | | | | | | | use [place] 10/325 if ordered. If | | | | | | | not tolerated, use Percocet then | | | | | | | Oxycodone if ordered., | | | | | | + +-------+ +---------+---+---+ +-------+ +---------+---+---+ | Given | 07/28/19 | 2 | | | | | 16 4:59 | tablets | | | | | AM PDT | | | | +-------+ +---------+---+---+ | Given | 07/27/19 | 2 | | | | | 16 11:15 | tablets | | | | | PM PDT | | | | +-------+ +---------+---+---+ +---+---+ | | | +---+---+ + +-------+ +---------+---+---+ | iohexol (OMNIPAQUE 350) 350 | Given | 07/27/19 | 200 mLs | | | | mg/mL injection Intravenous, | | 16 11:07 | | | | | PRN, Starting 07/27/15 at 1107 | | AM PDT | | | | + +-------+ +---------+---+---+ +---+---+ | | | +---+---+ + +-------+ +---------+---+---+ | levothyroxine (SYNTHROID, | Given | 07/28/19 | 150 mcg | | | | LEVOTHROID) tablet 150 mcg 150 | | 16 8:25 | | | | | mcg, Oral, DAILY BEFORE | | AM PDT | | | | | BREAKFAST, First dose on Wed | | | | | | | 07/26/15 at 1730, Give before | | | | | | | breakfast., | | | | | | + +-------+ +---------+---+---+ +-------+ +---------+---+---+ | Given | 07/27/19 | 150 mcg | | | | | 16 7:00 | | | | | | AM PDT | | | | +-------+ +---------+---+---+ +---+---+ | | | +---+---+ + +-------+ +-------+---+---+ | lidocaine 1% injection | Given | 07/27/19 | 2 mLs | | | | Infiltration, PRN, Starting Sat | | 16 10:03 | | | | | 07/27/15 at 1003 | | AM PDT | | | | + +-------+ +-------+---+---+ +---+---+ | | | +---+---+ + +-------+ +------+---+---+ | LORazepam (ATIVAN) tablet 1 mg | Given | 07/27/19 | 1 mg | | | | 1 mg, Oral, ONCE, 07/27/15 at | | 16 8:41 | | | | | 0845, For 1 dose | | AM PDT | | | | + +-------+ +------+---+---+ +---+---+ | | | +---+---+ + +-------+ +---------+---+---+ | metoprolol tartrate (LOPRESSOR) | Given | 07/28/19 | 12.5 mg | | | | tablet 12.5 mg 12.5 mg, Oral, 2 | | 16 9:56 | | | | | TIMES DAILY, First dose on Sat | | AM PDT | | | | | 07/27/15 at 2100, For 30 doses | | | | | | + +-------+ +---------+---+---+ +-------+ +---------+---+---+ | Given | 07/27/19 | 12.5 mg | | | | | 16 8:30 | | | | | | PM PDT | | | | +-------+ +---------+---+---+ +---+---+ | | | +---+---+ + +-------+ +---------+---+---+ | midazolam (VERSED) 1 mg/mL | Given | 07/27/19 | 0.25 mg | | | | injection PRN, Starting Sat | | 16 10:42 | | | | | 07/27/15 at 0959 | | AM PDT | | | | + +-------+ +---------+---+---+ +-------+ +---------+---+---+ | Given | 07/27/19 | 0.5 mg | | | | | 16 10:29 | | | | | | AM PDT | | | | +-------+ +---------+---+---+ | Given | 07/27/19 | 0.25 mg | | | | | 16 10:18 | | | | | | AM PDT | | | | +-------+ +---------+---+---+ +---+---+ | | | +---+---+ + +-------+ +---+---+---+ | niCARdipine (CARDENE) 200 mcg, | Given | 07/27/19 | | | | | nitroglycerin 100 mcg CVL mixture | | 16 11:08 | | | | | PRN, Starting 07/27/15 at | | AM PDT | | | | | 1108 | | | | | | + +-------+ +---+---+---+ +---+---+ | | | +---+---+ + +-------+ +---+---+---+ | niCARdipine (CARDENE) 200 mcg, | Given | 07/27/19 | | | | | nitroglycerin 200 mcg CVL mixture | | 16 10:05 | | | | | PRN, Starting 07/27/15 at | | AM PDT | | | | | 1005 | | | | | | + +-------+ +---+---+---+ +---+---+ | | | +---+---+ + +-------+ +---------+---+---+ | nitroglycerin 100 mcg/mL | Given | 07/27/19 | 100 mcg | | | | syringe PRN, Starting 07/27/15 | | 16 10:41 | | | | | at 1041 | | AM PDT | | | | + +-------+ +---------+---+---+ +---+---+ | | | +---+---+ + +---------+ +--------+--------+---+ | sodium chloride 0.9% (NS) bolus | New Bag | 07/27/19 | 428.5 | 107.1 | | | 428.5 mL 428.5 mL (rounded from | | 16 11:56 | mLs | mL/hr | | | 428.4 mL = 6 mL/kg | | AM PDT | | | | | 71.4 kg), Intravenous, | | | | | | | Administer over 4 Hours, ONCE, | | | | | | | 07/27/15 at 1200, For 1 dose, | | | | | | | Post-op/Phase II | | | | | | + +---------+ +--------+--------+---+ +---+---+ | | | +---+---+ + +---------+ +---+ +---+ | sodium chloride 0.9% (NS) | New Bag | 07/27/19 | | 75 mL/hr | | | infusion at 75 mL/hr, | | 16 8:40 | | | | | Intravenous, CONTINUOUS, Starting | | PM PDT | | | | | 07/26/15 at 1715 | | | | | | + +---------+ +---+ +---+ +---------+ +---+ +---+ | New Bag | 07/27/19 | | 75 mL/hr | | | | 16 6:24 | | | | | | AM PDT | | | | +---------+ +---+ +---+ | New Bag | 07/26/19 | | 75 mL/hr | | | | 16 5:18 | | | | | | PM PDT | | | | +---------+ +---+ +---+ +---+---+ | | | +---+---+ documented in this encounter
--- OUTSIDE RECORDS SUMMARY | ~2020-02-03 | XMS | Encounter Summary ---
Demographics + + + | Address | [address] | | | [place] [address] | + + + | Home Phone | | + + + | Preferred Language | Unknown | + + + | Marital Status | Single | + + + | [employer] Affiliation | 1013 | + + + | Race | White | + + + | Ethnic Group | Not or | + + + Author + + + | Author | [facility] | | | and [place] | + + + | Organization | [facility] | | | [...] Team Providers + +------+ + | Care Lay Out Helper Name | Role | Phone | + +------+ + PCP | Unavailable | + +------+ + Reason for Visit + +--------+ + | Reason | Onset | Comments | | | Date | | + +--------+ + | Lab Order | 10/04/ | Patient is due for fasting lab | | | 2017 | | + +--------+ + Encounter Details +--------+ + + + + | Date | Type | Department | Care Team | Description | +--------+ + + + + | 10/04/ | Telephone | [facility] | Alicia Gonzáles, | Lab Order (Patient | | 2018 | | CARDIOLOGY [address] | MD [address] | is due for fasting | | | | [place] [place], | [facility], | lab) | | | | [place] [address] | [place] [address] | | | | | [phone] | [phone] | | | | | | | [...] documented as of this encounter Miscellaneous Notes Addendum Note - Oma Cao RN - 10/04/2017 4:52 PM PDT Addended by: ELANA CAO on: 10/04/2017 16:52 Modules accepted: Orders elephone Enc nter - Oma Cao RN - 10/04/2017 4:52 PM PDTOrders done ........................ ...................Oma Cao RN on 10/04/17 at 16:52 elephone [facility] - Jocelyn Brandon - 10/04/2017 4:20 PM PDTPatient called back, will do lab work in [facility] next few days. elepho ne Encounter - Hilda Copeland First Aid Officer - 10/04/2017 4:12 PM PDTPatients voicem ail is non-descriptive so left a voicemail for them to call us back in regards to their appo intment 10/08/17. Patient is due for fasting labs (LIPID) prior to their appointment. Orders will be in our system but we can forward them to wherever patient would like to have the lab s drawn. docu mented in this encounter Plan of Treatment Not on filedocumented as of this encounter Results Lipid Panel (10/06/2017 7:59 AM PDT) + + + + + + | Component | Value | Ref Range | Performed | Pathologist | | | | | At | Signature | + + + + + + | Triglycerid | 64 | 35 - 160 mg/dL | [facility] | | | es | | | [facility] | | | | | | [facility] | | | | | | [facility] - | | | | | | LABORATORY | | + + + + + + | Cholesterol | 151 | 150 - 200 mg/dL | [facility] | | | | [facility] | | | | | | [facility] - | | | | | | LAB[facility]ATORY | | + + + + + + | HDL | 86 (H)Comment: New | 28 - 83 mg/dL | [facility] | | | | HDL Reference Range as | | [facility] | | | | of January 03, 2015 | | MEDICAL | | | | Values may be 10-20% | | CENTER - | | | | lower with new, | | LABORATORY | | | | standardized method. | | | | + + + + + + | Chol/HDL | 1.8 | | [facility] | | | Ratio | | | [facility] | | | | | | [facility] | | | | | | CENTER - | | | | | | LABORATORY | | + + + + + + | LDL, | 52 | <=130 mg/dL | [facility] | | | Calculated | | | [...] + | [facility] | [address] | [place], [place] | [phone] | | [facility] | | [address] | | | - LABORATORY | | | | + + + + + documented in this encounter Visit Diagnoses + + | Diagnosis | + + | Hyperlipidemia, unspecified hyperlipidemia type - Primary | + + documented in this encounter"
--- OUTSIDE RECORDS SUMMARY | ~2020-02-03 | XMS | Encounter Summary ---
Demographics + + + | Address | [address] | | | [place] [address] | + + + | Home Phone | | + + + | Preferred Language | Unknown | + + + | Marital Status | Single | + + + | Yarsani Affiliation | [id number] | + + + [...] Team Providers + +------+ + | Care Supervisor Modern Languages Name | Role | Phone | + [...] Closed | | Radiology | Diagnoses | [place], | | | | | | History of | Ayala Carr, | | | | | | stroke | [facility] | | | | | | History of | [address] | | | | | | right common | EBEN [place] | | | | | | carotid | [place] | | | | | | artery stent | [id number] | | | | | | placement | Phone: | | | | | | Bilateral | [phone] | | | | | | carotid | Fax: | | | | | | artery | [phone] | | | | | | stenosis | | | | | | | Procedures | | | | | | | VAS Carotid | | | | | | | Duplex | | | | | | | Bilateral | | | +--------+--------+ + + + + Reason for Visit + + + | Reason | Comments | + + + | Follow-up | Reestablish care | + + + Encounter Details +--------+---------+ + + + | Date | Type | Department | Care Team | Description | +--------+---------+ + + + | 08/16/ | Office | [facility] | Ayala Cuevas | Coronary artery | | 2020 | Visit | CARDIOLOGY JD | [address] | disease involving | | | | [address] | CHERYL TREADWELL F | [place] coronary | | | | [address] | [place] [address] | artery of [place] | | | | [place] | [phone] | heart without angina | | | | [id number] | | pectoris (Primary | | | | [phone] | | Dx); History of | | | | | | non-ST elevation | | | | | | myocardial | | | | | | infarction (NSTEMI); | | | | | | Paroxysmal atrial | | | | | | fibrillation (HCC); | | | | | | History of PTCA; | | | | | | Chronic ischemic | | | | | | heart disease; | | | | | | Dyslipidemia, goal | | | | | | LDL below 70; | | | | | | Essential | | | | | | hypertension with | | | | | | goal blood pressure | | | | | | less than 140/90; | | | | | | History of stroke; | | | | | | NEHEMIAH (obstructive | | | | | | sleep apnea); | | | | | | Hypothyroidism, | | | | | | unspecified type; | | | | | | Type 2 diabetes | | | | | | mellitus without | | | | | | complication, | | | | | | without long-term | | | | | | current use of | | | | | | insulin (HCC); | | | | | | Nonrheumatic aortic | | | | | | valve stenosis; | | | | | | History of right | | | | | | common carotid | | | | | | artery stent | | | | | | placement; | | | | | | Nonrheumatic aortic | | | | | | valve insufficiency; | | | | | | Bilateral carotid | | | | | | artery stenosis; | | | | | | Status post | | | | | | insertion of drug | | | | | | eluting coronary | | | | | | artery stent; | | | | | | History of peptic | | | | | | ulcer disease | +--------+---------+ + + + Social History [...] + + + | Blood Pressure | 118/52 | 08/17/2019 11:07 AM | | | | | PDT | | + + + + + | Pulse | 59 | 08/17/2019 11:07 AM | | | | | PDT | | + + + + + | Temperature | - | - | | + + + + + | Respiratory Rate | - | - | | + + + + + | Oxygen Saturation | 100% | 08/17/2019 11:07 AM | | | | | PDT | | + + + + + | Inhaled Oxygen | - | - | | | Concentration | | | | + + + + + | Weight | 70.5 kg (155 lb 8 | 08/17/2019 11:07 AM | | | | oz) | PDT | | + + + + + | Height | 162.6 cm (5' 4") | 08/17/2019 11:07 AM | | | | | PDT | | + + + + + | Body Mass Index | 26.69 | 08/17/2019 11:07 AM | | | | | PDT [...] of this encounter Patient Instructions Patient Instructions Ayala Cuevas FNP - 08/17/2019 11:00 AM PDTI also ordered you an Echo and carotid ultra sound to be done at [facility] in September I made no changes to medications Establish care with Dr. Blanchard in October, and see me back in January documented in this encounter Progress Notes Ayala Cuevas FNP - 08/17/2019 11:00 AM PDTFormatting of this note might be differe nt from the original. Date of visit: 08/18/2019 Primary Care Physician: Warren Harrington CHIEF COMPLAINT: Chief Complaint Patient presents with Follow-up Reestablish care HISTORY OF PRESENT ILLNESS: Ms. Le Rollins is a 74-year-old woman who is here today to reestablish care with our cardiology group after moving back from [place] She is a patient of , when he performed her last PCI in 09/2018 , and previousl y seen by Dr. Pardo, now retired. I have not seen her since 05/2017 as she moved to [place] , and was followed by cardio logy team of wire worker , and cardiology MILLER WOOD FLOUR Maral King in [facility] ut moved back to [place] in November 2018. Today, I reviewed all previous documentation available to me in electronic medical celeste rds and from external sources. She has a history of coronary artery disease with stents to the OM and RCA, right sided str elda with stent to right Carotid 09/2015,and likely 2nd stroke in 2017, and previous TIA's, carotid stenosis, mild to moderate aortic stenosis, hypertension, hyperlipidemia, type II d iabetes, sleep apnea with CPAP use nightly, PUD, fibromyalgia, and memory deficits. Her MTL3CS2 VASC score is 7( gender, age, CAD, DM, Stroke, HTN) Her current and previous testing and procedures are detailed below Since I saw her last, she had stents placed for 90% stenosis to her mid RCA , and it was n oted that her stent to her OM was patent, and she had a normal EF of 65% with normal right-s ided pressures. She was seen by cardiology MILLER WOOD FLOURSaul King in July 2018 after she had a normal echo and stress test performed, and event monitor negative for atrial fib, and reported symptoms of chest discomfort with stress and exertion,and palpitations. A repeat angiogram performed in September 2018 in [place] had showing a 90% mid RCA stenosis which was stented as discussed at [facility] by Dr. Guadalupe. She was referred for cardiac rehab at [facility] as she had moved back here shortly aft er that, which she completed in April 2019 . She last saw her PCP, Dr. Harrington on August 13 and note reviewed and she was both on antiplatelet therapy as well as anticoagulation and noted her last A1c in April was 6.7, and had a complaint in May of stomach pain whic h is being evaluated. She has complaints today of 2 episodes of chest pain to epigastric region in the last 3 m [facility] with the last about 2 weeks ago, which she reports resolved quickly with 1 sublingual nitro, and also complains of sharp between the shoulder pain., and reports no other symptoms with pain. She resorts she had no problems with palpitations, or chest pain when with cardiac rehab. She reports she has palpitations and fast heart rates with some dizziness and shortness of breath about once a month, but otherwise is not dizzy or short of breath. She denies any sy ncope, reports only occasional mild pedal edema, and denies any signs or symptoms of stroke or TIA, or any bleeding with being on Plavix and Eliquis. She did report had some bleeding peptic ulcers when in [place] and seen and treated by GI specialist, Dr. Liz there. She has had ongoing problems with a broken right foot and has been seeing orthopedic surge on Dr. Perez. She continues to wear her CPAP nightly, and has established care with sleep providers at [facility] sleep clinic. She exercises by ambulating in the hallways at her care facility,[facility] , and also with lifting light weights and stretching on daily basis. REVIEW OF SYSTEMS: Negative except for pertinent items noted in HPI. Constitutional: reports mild fatigue. Denies unexplained weight loss. Appetite is good. Weight is stable. Denies night sweats fevers or chills HENT: Denies nosebleeds. Denies hearing problems. Denies dysphagia Eyes: Denies visual disturbance or double vision. Denies history of cataracts or glaucoma or macular degeneration. Respiratory/Sleep:: Sleep apnea with CPAP. Hx asthma. Denies cough and shortness of breath. Denies hemoptysis or excessive sputum production. Denies orthopnea, PND. Cardiovascular: Palpitations with fast heart rate 1-2 times per month, intermittent chest pain . Mild pedal edema. Denies palpitations Denies history of rheumatic fever. Denies c laudication . Gastrointestinal: GERD . Denies nausea, vomiting, abdominal pain and blood in stool. Hx PUD 2018? Genitourinary: Denies hematuria. Musculoskeletal:Hx knee replacement, arthralgia to hands and knees, Denies myalgias, back p ain Skin: Denies color change. 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 Hx fibromyalgia, New stroke December 2016 Denies histor y of seizures. Denies dizziness, syncope and numbness. Denies focal motor or sensory defici ts Hematological/Oncology Does not bruise/bleed easily. Denies history of cancer Endocrine: Type II diabetes, history of hypothyroidism Denies excessive thirst or hunger. Psychiatric/Behavioral: Hx Anxiety/Depression The patient denies any history of other psy chiatric illness. Vaccines: Current on 2019 flu vaccine. Current on post 65 pneumonia vaccine. Habits/Social : Denies history of smoking. Denies EtOH use. Denies recreational or illic it drug use. Exercises with walking and tolerates. Lives in [facility] living. Son roxann [place], oldest son of leukemia Outpatient Medications Prior to Visit Medication Sig Dispense Refill [...] Daily. clonazePAM (KLONOPIN) 0.5 mg tablet 0 clopidogrel (PLAVIX) 75 mg tablet Take 1 [...] 100 mg by mouth 2 times daily. Homeopathic Products (LEG CRAMP RELIEF) TABS Take 1 tablet by mouth. isosorbide mononitrate (IMDUR) 30 mg ER tablet TAKE ONE TABLET BY MOUTH ONE TIME DAILY 90 tablet 3 levothyroxine (SYNTHROID) 100 mcg tablet Take 100 mcg by mouth every morning (before br eakfast). levothyroxine (SYNTHROID) 175 MCG tablet Take 175 mcg by mouth every morning (before br eakfast). levothyroxine (SYNTHROID) 200 mcg tablet Take 100 mcg by mouth [...] by mouth Daily. 30 ta blet 5 metoprolol tartrate (LOPRESSOR) 25 mg tablet Take 25 mg by mouth 2 (two) times daily. Multiple Vitamins-Minerals (MULTIVITAMIN PO) Take 1 tablet [...] tablet Take 100 mg by mouth Daily. traMADol (ULTRAM) 50 mg tablet Take 1 tablet by mouth every 8 hours as needed. 15 table t 0 UNABLE TO FIND Med Name: Resmed AirSense 10 autoset CPAP: 5-20cm while sleeping. No facility-administered medications prior to visit. PHYSICAL EXAM: Wt Readings from Last 3 Encounters: 08/17/19 70.5 kg (155 lb 8 oz) 09/26/18 74.3 kg (163 lb 12.8 oz) 08/31/18 73 kg (160 lb 15 oz) Temp Readings from Last 3 Encounters: 09/26/18 36.9 C (98.4 F) (Temporal) 05/07/18 37.1 C (98.7 F) (Oral) 11/03/17 37.1 C (98.7 F) (Oral) BP Readings from Last 3 Encounters: 08/17/19 118/52 09/26/18 146/60 08/31/18 140/74 Pulse Readings from Last 3 Encounters: 08/17/19 59 09/26/18 58 08/31/18 64 GENERAL: Well developed, well nourished older woman , in no distress. Appears approximate ly stated age. HEENT: Normocephalic, atraumatic. EYES: PERRL, EOM normal. MOUTH: Oral mucosae moist, dentition adequate, no lesions noted NECK: soft bilateral carotid bruit,worse on right, stent on right., No JVD, lymphadeno paul, thyromegaly, Carotid pulses are 2+ bilaterally LUNGS/CHEST: Clear bilaterally, with no rales, rhonchi or wheezing noted, respirations unl abored HEART: Nondisplaced PMI, regular rate and rhythm, S1, S2 normal. 4/6 systolic murmur RUSB ,no rubs or gallops noted. ABDOMEN: Soft, nontender, no organomegaly, masses or bruits. Bowel sounds are normal in a ll 4 quadrants. The abdominal aortic pulsation is not palpable. EXTREMITIES: Trace pedal edema. Radial pulses 2+ bilaterally. Femoral pulses are 2+ bila terally without bruits. DP and PT pulses are 2+ bilaterally. No clubbing. SKIN: Warm and dry, capillary refill is normal, no lesions. NEUROLOGIC: Awake, alert and oriented x 3. No focal motor or sensory deficits. PSYCHIATRIC: Appropriate, affect appears normal, some memory deficits, speech can be rambl ing DATA: Blood tests: Lab Results Component Value Date WBC 6.79 10/04/2018 WBC 6.2 05/07/2018 RBC 4.19 10/04/2018 HGB 13.3 10/04/2018 HGB 13.3 05/07/2018 HCT 41.2 05/07/2018 PLT 184 05/07/2018 Lab Results Component Value Date NA 142 10/04/2018 K 4.7 10/04/2018 CL 106 10/04/2018 CO2 28 10/04/2018 ANIONGAP 13 10/04/2018 GLUF 152 (H) 10/04/2018 BUN 18 10/04/2018 EGFR >60 10/04/2018 Lab Results Component Value Date CHOL 151 10/06/2017 TRIG 64 10/06/2017 LDL 52 10/06/2017 GLUF 152 (H) 10/04/2018 No results found for: BNP, TSH, CRP No results found for: TOTEPI CARDIAC PROCEDURES/IMAGING PCI/Angiogram: 10/04/2018: ( [facility]) : Successful stenting of the right coronary artery with d eployment of 3.0 x 16 mm Synergy drug-eluting stent. continue dual antiplatelet therapy as w angeline as Gildardo for her history of paroxysmal atrial fibrillation Angiogram: 09/26/2018:([facility])Severe single-vessel CAD with 90% stenosis at midportion o f dominant RCA, after the previous midportion stent, stent of OM noted to be patent. Right dominant circulation. EF 65%. Systemic blood pressure mildly elevated. Hemodynamics consi stent with mild aortic stenosis, also mild to moderate AI. Normal right-sided pressures, no rmal wedge pressure. FINDINGS : : Hemodynamics: RA -3 mm Hg RV -37/0 mm Hg PA -25/9 mm Hg w ith a mean of 18 mmHg Wedge -9 mm Hg Ao -158/60 mm Hg with a mean of 68 mm Hg LV -173/7 mm H g LVEDP -15 mm Hg thermodilution, cardiac output is 4.5 L/min and index is 2.5 L/min/kg. Left ventriculography: The left ventricular size and function were normal. LVEF is calculated at 65%. There is no mitral valve regurgitation noted. Left main : medium caliber vessel th at bifurcates into the left anterior descending artery and left circumflex artery. Left emil n artery has is free of disease. LAD: medium caliber vessel that wraps around the apex and gives rise to 2 diagonal branches. The vessel has 50% stenosis proximally. It gives rise to 2 diagonal branches. Left circumflex : medium caliber vessel that is non dominant. The vessel has Stent placement at the midportion, stent is patent. It gives rise to 1 OM bran ches. RCA The right coronary artery is a medium caliber vessel that is dominant. The vesse l has Stent placement at the midportion. There is 90% stenosis at the midportion right aft er the stent. It gives rise to a PDA and Posterolateral branches. Cath, 07/27/2015: left main OK, 40% mid-LAD, LCX OK, 90% OM2, 50% mid-RCA (FFR 0.86). OM2 s tented. Last nuclear medicine stress test. 07/13/2018:( [place]) Presenting EKG negative. Nor mal Persantine perfusion imaging. Normal LV size, wall thickness, and motion. EF by gated SPECT 80%. Low, less than 1% CV risk. VASCULAR TESTING AND PROCEDURES Last Carotid ultrasound: 2016 ([facility]). Distal Right sided stent from distal CCA-mid ICA No plaque within the stent. 50-69 %stenosis on the right. Left ICA: 1-15% l eft internal carotid artery. Normal Antegrade flow to vertebral arteries Carotid US, 10/01/2015 ([facility]): ~70% stenosis right ICA, 16-49% stenosis left ICA.-tx' d with right carotid stenting, [facility] 10/18/2015 CT head without contrast: 05/07/2018: FINDINGS Brain: Chronic right MCA distribution infarc t, unchanged.Cortical hyperdensity in the region of the right MCA infarct, likely calcification from laminar necrosis.Chronic left parietal lobe infarct, unchanged.N o acute infarct.No intracranial mass. Ventricles and extra-axial fluid spaces: Ex vacuo phenomenon involving body of the right lateral ventricle, unchanged.No hydrocephalus.Par anasal sinuses and mastoid air cells: Mild mucosal thickening are seen of the ethmoid sinuse s.Calvarium and extracranial soft tissues: Hyperostosis frontalis interna, benign. Orbits: I blair portions of the orbits are normal.MPRESSION-Chronic findings, as above, without acute intracranial abnormality. CTA-neck, 10/04/2015 ([facility]) :IMPRESSION- Limited examination secondary to motion artifact. 60% distal common and 55% proximal right internal carotid artery stenosis. 20% distal left common carotid artery stenosis. 50% left vertebral artery stenosis secondary to cervical spondylosis. 50% right and 65% left subclavian artery stenosis. ECHO Last Echo: 07/15/2018 ([facility]). EF 75%, LV normal in size and wall thickness, normal L AP, grade 1 diastolic dysfunction. RV normal in size and function. Mildly dilated LA, norm al RA. Intra-arterial septum normal. Aortic valve trileaflet, moderate calcification invol ving the left coronary cusp, noncoronary cusp and right coronary cusp, immobility of aortic valve involving the right coronary cusp, no vegetation, moderate valvular aortic stenosis pe ak/mean 340 cm/s / 25.19 mmHg. Valve area 1.22 cm. Mild to moderate AI. Mitral valve wi th myxomatous changes, mild MAC, no mitral stenosis, trace MR. Normal tricuspid valve, mild TR, no stenosis. Pulmonic valve normal, trace ND. Great vessels are normal in size and ap pearance, normal size aortic root. IVC WNL. Borderline pulmonary hypertension, RVSP 35 mmH g. No pericardial or pleural effusion Echo: 03/10/2017: Sinus bradycardia. Technically adequate study. EF 60-65 percent. LV no rmal in size and wall thickness, no regional wall motion abnormalities. Mild diastolic dysf unction, grade 1. RV normal in size and function. Mild left atrial enlargement. Normal ri ght atrium. Aortic valve trileaflet and moderately calcified with moderate aortic stenosis and mild aortic regurgitation.peak/mean pressure gradient of 25.07mmHg / 14.07mmHg, the aort ic valve area by continuity equation is 1.3cm. Immobile right coronary cusp. Mild mi tral regurgitation, mild mitral calcification. Tricuspid valve normal with mild TR. No ede dence of pulmonary hypertension. RVSP 23.88 mmHg. None/triple pericardial effusion. No pl eural effusion. IVC normal size, CVP 5-10 mmHg . aortic root, ascending aorta are within no rmal dimension Echo: 10/01/2015: borderline concentric LVH, LVEF >70%, mild LAE, mild-moderate /mild AI ( calc ARISTIDES 1.2cm2, peak/mean gradients 25/16 mmHg), trace MR, mild TR, est systolic PAP 23-28 mmHg. EKG/EVENT MONITOR Mobile cardiac telemetry from 09/02-10/02/2018: Baseline EKG shows sinus rhythm with heart rat e 45-113 bpm, PAC's, atrial couplets, PSVT with heart rate of 150 noted. PVC's, ventricular couplets, 15 beat run NSVT, heart rate of 125 event monitor: 04/15/2017: 2 week event monitor. 85 percent diagnostic data. Predominantl y sinus rhythm, bradycardia burden 22 percent. Average heart rate 62 bpm) 51-85 bpm. Arrhy thmias: Rare PAC's and PVC's, 21 episodes of paroxysmal supraventricular tachycardia, some c onsistent with atrial fibrillation, longest 28 beats. No pauses EK03/19:([facility]) Normal sinus rhythm. Previous septal infarct. Rate 73 bpm, ND 194 ms, QRS 70 ms, QTC 412 ms EK: Normal sinus rhythm, previous septal infarct. Rate 65 bpm, ND 180 ms, QR S 78 ms, QTC 416 ms EK08/17/2019: Sinus bradycardia, old septal infarct. Rate 55 bpm, ND 196 ms, QRS 70 ms, QTC 422 ms, tracing personally reviewed by me LABS Labs: 2017: Lipids: Cholesterol 133, triglycerides 48, HDL 79, LDL 44, VLDL 10, ratio 1.7, non-HDL cholesterol 84. CMP: Sodium 131, potassium 4.3, chloride 96, glucose 125, BUN 15, creatinine 0.84, GFR 67, ratio 17.9, AST 38, ALT 27, alk phos 116, total bilirubin 0.4, albumin 4. A1c 7.6 (171). TSH 39.10. Vitamin D 23. CBC: WBC 6.6, RBC 3.71, hemoglobin 9 .6, hematocrit 28.7, platelets 320, lymphocytes 19.3 Labs: 07/05/2019: Lipids:( atorvastatin 80 mg) Cholesterol 121, triglycerides 63, HDL 57.4, LDL 61. CMP: Sodium 138, potassium 4.3, chloride 99, glucose 123, BUN 20, creatinine 0.86, GFR 65, AST 32, ALT 28, alk phos 100, total bili 0.7, albumin 3.7. Thyroid: TSH 0.034, T4 1.9, negative gluten sensitivity panel. ASSESSMENT & PLAN: She was here to reestablish care with me after moving from [place], and has not been seen by me since 2017. She has problems as detailed below. Her EKG performed in the clinic today is detailed above, and shows stable sinus bradycardi a at 55 bpm, and her blood pressure is well controlled. I reviewed the EKG results in detail with her. Her labs performed by her PCP in June show her lipids well controlled on Atorvastatin 80 mg, and CMP normal , and Thyroid function low, and thyroid medication adjusted since by PCP , and negative screen for gluten intolerance. She seems overall to be doing well, though has occasional episodes of palpitations and fas t heart rate with event monitor performed last year showing no atrial fib. She had only 2 tr ansient episodes of chest pain in last few months, with no other symptoms, and not sure if c ardiac in nature, or related to her ongoing gastric issues. Her blood pressure log from [facility] shows systolic blood pressure predominantly in the 120-138 range, and heart rate pr edominantly in the high 50's- low 60's. I made no changes to cardiac medications today, and she should continue Atorvastatin 80 mg daily for hyperlipidemia, Imdur 30 mg for chest pain, and may increase in future, metopr olol XL 25 mg daily for heart function and rate control, lisinopril-hydrochlorothiazide 20-2 5 mg daily for hypertension and pedal edema, as needed sublingual nitro 0.4 mg,Eliquis 5 mg twice daily for stroke prevention, and Plavix 75 mg daily for ongoing carotid stenosis with carotid stents, as well as for RCA stent placed in September 2018. I have ordered her an updated Echo for follow-up on her aortic stenosis, as [facility] follow-up on her carotid stenosis to be performed at [facility] in September or October She will establish care with Dr. Blanchard 12/07/2019 as her primary wire worker as she comes t o [place], and I will continue to see her as well, and will follow-up with her in January , but sooner if needed. She was happy with this plan. 1. Coronary artery disease involving [place] coronary artery of [place] heart without angina pectoris 2. History of non-ST elevation myocardial infarction (NSTEMI) 3. Paroxysmal atrial fibrillation (HCC) 4. History of PTCA 5. Chronic ischemic heart disease 6. Dyslipidemia, goal LDL below 70 7. Essential hypertension with goal blood pressure less than 140/90 8. History of stroke 9. NEHEMIAH (obstructive sleep apnea) 10. Hypothyroidism, unspecified type 11. Type 2 diabetes mellitus without complication, without long-term current use of insulin (HCC) 12. Nonrheumatic aortic valve stenosis 13. History of right common carotid artery stent placement 14. Nonrheumatic aortic valve insufficiency 15. Bilateral carotid artery stenosis 16. Status post insertion of drug eluting coronary artery stent 17. History of peptic ulcer disease Orders Placed This Encounter Procedures VAS Carotid Duplex Bilateral ECG 12 lead ECHO Complete The following portions of the patient's history were personally reviewed by me and updated as appropriate: EKG tracings, other specialty provider and PCP notes,any Hospital admission and discharge summaries, any ER records , current and previous cardiac testing and procedure reports and d tabatha, home heart rate and blood pressure log, medication and vital sign record from [facility], only allergies, current medications.labs Family history, past medical history, past social history, past surgical history. Problem list. This encounter was dictated with voice recognition software and may contain inadvertent rec ognition errors. Portions of this chart may have been copied from previous notes for continuity of care [facility]2019 docume nted in this encounter Plan of Treatment + +---------+--------+ + + | Name | Type | Priori | Associated Diagnoses | Order Schedule | | | | ty | | | + +---------+--------+ + + | VAS Carotid Duplex | Imaging | Routin | History of stroke | Expected: | | Bilateral | | e | History of right | 09/25/2019, Expires: | | | | | common carotid | 08/16/2020 | | | | | artery stent | | | | | | placement Bilateral | | | | | | carotid artery | | | | | | stenosis | | + +---------+--------+ + + documented as of this encounter Procedures + +--------+ + + + | Procedure Name | Priori | Date/Time | Associated Diagnosis | Comments | | | ty | | | | + +--------+ + + + | ECG 12 LEAD | Routin | 08/17/2019 | Coronary artery | Results for this | | | e | 11:13 AM | disease involving | procedure are in the | | | | PDT | [place] coronary | results section. | | | | | artery of [place] | | | | | | heart without angina | | | | | | pectoris History | | | | | | of non-ST elevation | | | | | | myocardial | | | | | | infarction (NSTEMI) | | | | | | Paroxysmal atrial | | | | | | fibrillation (HCC) | | | | | | History of PTCA | | | | | | Chronic ischemic | | | | | | heart disease | | | | | | Dyslipidemia, goal | | | | | | LDL below 70 | | | | | | Essential | | | | | | hypertension with | | | | | | goal blood pressure | | | | | | less than 140/90 | | | | | | History of stroke | | | | | | NEHEMIAH (obstructive | | | | | | sleep apnea) | | | | | | Hypothyroidism, | | | | | | unspecified type | | | | | | Type 2 diabetes | | | | | | mellitus without | | | | | | complication, | | | | | | without long-term | | | | | | current use of | | | | | | insulin (HCC) | | + +--------+ + + + documented in this encounter Results ECG 12 lead (08/17/2019 11:13 AM PDT) + + + + + + | Component | Value | Ref Range | Performed | Pathologist | | | | | At | Signature | + + + + + + | VENTRICULAR | 55 | BPM | [facility] | | | RATE EKG | | | | | + + + + + + | ATRIAL RATE | 55 | BPM | [facility] | | + + + + + + | P-R | 196 | ms | [facility] | | | INTERVAL | | | | | + + + + + + | QRS | 70 | ms | [facility] | | | DURATION | | | | | + + + + + + | Q-T | 442 | ms | [facility] | | | INTERVAL | | | | | + + + + + + | Q-T | 422 | ms | [facility] | | | INTERVAL | | | | | | (CORRECTED) | | | | | + + + + + + | P WAVE AXIS | 74 | degrees | [facility] | | + + + + + + | QRS AXIS | 69 | degrees | [facility] | | + + + + + + | T AXIS | 60 | degrees | [facility] | | + + + + + + | INTERPRETAT | Sinus | | [facility] | | | ION TEXT | bradycardiaOtherwise | | | | | | normal ECGWhen compared | | | | | | with ECG of 29-MAR-2017 | | | | | | 10:18,No significant | | | | | | change was | | | | | | foundConfirmed by | | | | | | AYALA LUNDY | | | | | | ([id number]) on 08/17/2019 | | | | | | 2:11:29 PM | | | | + + [...] + + | Coronary artery disease involving [place] coronary artery of [place] heart without | | angina pectoris - Primary | + + | History of non-ST elevation myocardial infarction (NSTEMI) Old myocardial infarction | + + | Paroxysmal atrial fibrillation (HCC) Atrial fibrillation | + + | History of PTCA Postsurgical percutaneous transluminal coronary angioplasty status | + + | Chronic ischemic heart disease Chronic ischemic heart disease, unspecified | + + | Dyslipidemia, goal LDL below 70 Other and unspecified hyperlipidemia | + + | Essential hypertension with goal blood pressure less than 140/90 | + + | History of stroke Transient ischemic attack (TIA), and cerebral infarction without | | residual deficits | + + | NEHEMIAH (obstructive sleep apnea) Obstructive sleep apnea (adult) (pediatric) | + + | Hypothyroidism, unspecified type | + + | Type 2 diabetes mellitus without complication, without long-term current use of | | insulin (HCC) | + + | Nonrheumatic aortic valve stenosis Aortic valve disorders | + + | History of right common carotid artery stent placement | + + | Nonrheumatic aortic valve insufficiency Aortic valve disorders | + + | Bilateral carotid artery stenosis Occlusion and stenosis of multiple and bilateral | | precerebral arteries without mention of cerebral infarction | + + | Status post insertion of drug eluting coronary artery stent | + + | History of peptic ulcer disease Personal history of peptic ulcer disease | + + documented in this encounter
--- OUTSIDE RECORDS SUMMARY | ~2020-02-03 | XMS | Encounter Summary ---
Demographics + + + | Address | [address] | | | [place] [address] | + + + | Home Phone | | + + + | Preferred Language | Unknown | + + + | Marital Status | Single | + + + | Quaker Affiliation | 1013 | + + + | Race | White | + + + | Ethnic Group | Not or | + + + Author + + + | Author | [facility] | | | and [place] | + + + | Organization | [facility] | | [...] Team Providers + +------+ + | Care Student Services Director Name | Role | Phone | + +------+ + | Warren Harrington | PCP | | + +------+ + Encounter Details +--------+ + + + + | Date | Type | Department | Care Team | Description | +--------+ + + + + | 11/17/ | Orders Only | [facility] | Provider, | | | 2018 | | SYSTEM GENERIC OP | [address] | | | | | CONVERSION [address] | [place]. | | | | | [address] [place], [place] | [place] [address] | | | | | [address] | | | | | | [phone] | | | +--------+ + + + [...]
--- OUTSIDE RECORDS SUMMARY | ~2020-02-03 | XMS | Encounter Summary ---
Demographics + + + | Address | [address] | | | [place] [address] | + + + | Home Phone | | + + + | Preferred Language | Unknown | + + + | Marital Status | Single | + + + | Taoist Affiliation | 1013 | + + + | Race | White | + + + | Ethnic Group | Not or | + + + Author + + + | Author | [facility] | | | and [place] | + + + | Organization | [facility] | | | [...] Team Providers + +------+ + | Care Drawing Instructor Name | Role | Phone | + +------+ + | Wilson Lin MD | PCP | | + +------+ + Reason for Visit + +--------+ + | Reason | Onset | Comments | | | Date | | + +--------+ + | CPAP Follow Up | 01/06/ | | | | 2019 | | + +--------+ + Encounter Details +--------+ + + + + | Date | Type | Department | Care Team | Description | +--------+ + + + + | 01/06/ | Telephone | [facility] | Aung Jimenez PA | CPAP Follow Up | | 2019 | | SLEEP DISORDER [address] | [address] | | | | | [place] | [place] | | | | | [place] [address] | [address] | | | | | [phone] | | | +--------+ + + + [...] this encounter Miscellaneous Notes Telephone Encounter - Maryan Stallworth, Agency Trainer - 01/06/2019 8:18 AM PDTTelephone ca ll to the patient this morning to confirm Mondays appointment with RONNA Patel for a one year follow-up. The patient cancelled appointment and did state that she has moved and is r eceiving care for sleep in [place]. I will send this note to RONNA Patel.Electronicall y signed by Maryan Stallworth Agency Trainer at 01/06/2019 8:21 AM PDTdocumented in this enco unter Plan of Treatment Not on filedocumented as of this encounter Visit Diagnoses Not on filedocumented in this encounter"
--- OUTSIDE RECORDS SUMMARY | ~2020-02-03 | XMS | Encounter Summary ---
Demographics + + + | Address | [address] | | | [place] [address] | + + + | Home Phone | | + + + | Preferred Language | Unknown | + + + | Marital Status | Single | + + + | Restorationist Affiliation | 1013 | + + + | Race | White | + + + | Ethnic Group | Not or | + + + Author + + + | Author | [facility] | | | and [place] | + + + | Organization | [facility] | | [...] Team Providers + +------+ + | Care Photo Equipment Technician Name | Role | Phone | + +------+ + PCP | Unavailable | + +------+ + Reason for Referral Evaluate & Treat (Emergency) +--------+ + + + + + | Status | Reason | Specialty | Diagnoses / | Referred By | Referred To | | | | | Procedures | Contact | Contact | +--------+ + + + + + | Closed | Specialty | Cardiology | Diagnoses | Cathy[place]ajulius, | [place], | | | Services | | Coronary | MD Alicia | MD Teresa | | | Required | | artery | [address] | | | | | disease, | [address] | [address] | | | | | angina | [place], | [place], [place] | | | | | presence | [place] [address] | [address] Phone: | | | | | unspecified, | Phone: | [phone] | | | | | unspecified | [phone] | Fax: | | | | | vessel or | Fax: | [phone] | | | | | lesion type, | [phone] | | | | | | unspecified | | | | | | | whether | | | | | | | unga or | | | | | | | transplanted | | | | | | | heart | | | | | | | Procedures | | | | | | | .A | | | | | | | PPT INFO | | | | | | | REQUEST | | | | | | | FAXED TO | | | | | | | SPECIALIST | | | | | | | [phone] | | | +--------+ + + + + + Reason for Visit +--------+--------+ + | Reason | Onset | Comments | | | Date | | +--------+--------+ + | Other | 09/26/ | plan of care | | | 2018 | | +--------+--------+ + Encounter Details +--------+ + + + + | Date | Type | Department | Care Team | Description | +--------+ + + + + | 09/26/ | Telephone | [facility] | Alicia Gonzáles, | Other (plan of care) | | 2019 | | CARDIOLOGY [address] [place] | | | | | [place], | [place], | | | | | [place] [address] | [place] [address] | | | | | [phone] | [phone] | | | | | | | [...] this encounter Miscellaneous Notes Telephone Encounter - Indu Gómez RN - 09/26/2018 12:32 PM PDTReferral entered. SOO PAIZ notified of medication changes, she will notify patient. ............................. ..............Indu Gómez RN on 09/26/18 at 12:33 elephone Encounter - Indu Gómez RN - 09/26/2018 11:[address] Liz, patient was here today for an angiogram. She will need intervention, Dr Liz has spoken with Dr Guadalupe and would like to refer her to him. She will need to start on Plavix 75mg one time daily. She will need to stop her aspirin while on the plavix. She will need to restart her apixaba n today but hold it 2 days prior to intervention with Dr Guadalupe. .......................... .................Indu Gómez RN on 09/26/18 at 11:53 documented in this encounter Plan of Treatment + + +--------+ + + | Name | Type | Priori | Associated Diagnoses | Order Schedule | | | | ty | | | + + +--------+ + + | External Referral to | Outpatient | STAT | Coronary artery | Ordered: 09/26/2018 | | [facility] | Referral | | disease, angina | | | Cardiology | | | presence | | | | | | unspecified, | | | | | | unspecified vessel | | | | | | or lesion type, | | | | | | unspecified whether | | | | | | unga or | | | | | | transplanted heart | | + + +--------+ + + documented as of this encounter Visit Diagnoses + + | Diagnosis | + + | Coronary artery disease, angina presence unspecified, unspecified vessel or lesion | | type, unspecified whether unga or transplanted heart - Primary | + + documented in this encounter"
--- OUTSIDE RECORDS SUMMARY | ~2020-02-03 | XMS | Encounter Summary ---
Demographics + + + | Address | [address] | | | [place] [address] | + + + | Home Phone | | + + + | Preferred Language | Unknown | + + + | Marital Status | Single | + + + | Sikh Affiliation | 1013 | + + + [...] Team Providers + +------+ + | Care Book Salesman Name | Role | Phone | + +------+ + | Wilson Lin MD | PCP | | + +------+ + Encounter Details +--------+ + + + + | Date | Type | Department | Care Team | Description | +--------+ + + + + | 07/31/ | Orders Only | [facility] [place] | Maryan Velasquez, | Congestive heart | | 2016 | | CARDIOLOGY [address] | failure, unspecified | | | | [place], | [place], [place] | congestive heart | | | | [place] [address] | [address] | failure chronicity, | | | | [phone] | | unspecified | | | | | | congestive heart | | | | | | failure type (HCC); | | | | | | Essential | | | | | | hypertension; Aortic | | | | | | valve stenosis | +--------+ + + + + Social [...] + | Diagnosis | + + | Congestive heart failure, unspecified congestive heart failure chronicity, unspecified | | congestive heart failure type | + + | Essential hypertension Unspecified essential hypertension | + + | Aortic valve stenosis Aortic valve disorders | + + documented in this encounter"
--- OUTSIDE RECORDS SUMMARY | ~2020-02-03 | XMS | Encounter Summary ---
Demographics + + + | Address | [address] | | | [place] [address] | + + + | Home Phone [...] Author + + + | Author | [facility] | | | and [place] | + + + | Organization | [facility] | | [...] Team Providers + +------+ + | Care Employment Evaluator/Case Manager Name | Role | Phone | [...] valve | [address] | | | | | stenosis, | [address] | [place], | | | | | etiology of | [place], | [place] | | | | | cardiac | [place] [address] | [address] | | | | | valve | Phone: | Phone: | | | | | disease | [phone] | [phone] | | | | | unspecified | Fax: | Fax: | | | | | Procedures | [phone] | [phone] | | | | | [place] Nuclear [...] | | | | | | STUDIES [place] | | | | | | | CV STRS TST | | | | | | | XERS&/OR RX | | | | | | | CONT ECG W/O | | | | | | | I&R [place] | | | | | | | [...] Radiology | Diagnoses | [place], | [facility] | | | | | Aortic | MD Alicia | Medicine | | | | | valve | [address] | [address] | | | | | stenosis, | [address] | [place], | | | | | etiology of | [place], | [place] | | | | | cardiac | [place] [address] | [address] | | | | | valve | Phone: | Phone: | | | | | disease | [phone] | [phone] | | | | | unspecified | Fax: | Fax: | | | | | Procedures | [phone] | [phone] | | | | | [place] Nuclear [...] | | | | | | STUDIES [place] | | | | | | | CV STRS TST | | | | | | | XERS&/OR RX | | | | | | | CONT ECG W/O | | | | | | | I&R [place] | | | | | | | [...] | +--------+ + + + + | 07/12/ | Hospital | [facility] | Alicia Gonzáles, | Aortic valve | | 2019 | Encounter | MED CTR NUC[facility] | [address] [facility] | stenosis, etiology | | | | MEDICINE [address] [place], | of cardiac valve | | | | [place], | [place] [address] | disease unspecified | | | | [place] [address] | [phone] | | | | | [phone] | | | | | | | Blow Machine Tender Starch SprayingMary Kay | | +--------+ + + + + [...] + + + | Blood Pressure | - | - | | + + + + + | Pulse | - | - | | + [...] + + + + | Weight | 73 kg (161 lb) | 07/12/2018 12:00 PM | | | | | PDT | | + + + + + | Height | - | - | | + + + + + | Body Mass Index | 27.64 | 07/01/2018 2:04 PM | | | [...] + + documented in this encounter Results NM Nuclear Stress Test (Vasodilator) (07/13/2018 1:07 [...] cardiac valve disease unspecified | + + documented in this encounter Administered Medications + +--------+ +-------+------+------+ | Medication Order | MAR | Action | Dose | Rate | Site | | | Action | Date | | | | + +--------+ +-------+------+------+ | aminophylline injection 75 mg | Given | 07/13/19 | 75 mg | | | | 75 mg, Intravenous, ONCE PRN, per | | 19 1:17 | | | | | doctor, Starting Wed07/12/18 at | | PM PDT | | | | | 1225, For 1 dose, Nuclear | | | | | | | Medicine | | | | | | + +--------+ +-------+------+------+ +---+---+ | | | +---+---+ + +-------+ +---------+--------+---+ | dipyridamole (PERSANTINE) 60mg | Given | 07/13/19 | 10.366 | 414.6 | | | in 40 mL NS syringe 0.142 | | 19 12:45 | mg/min | mL/hr | | | mg/kg/min | | PM PDT | | | | | 73 kg (414.64 mL/hr, rounded to | | | | | | | 414.6 mL/hr), Intravenous, | | | | | | | Administer over 4 Minutes, ONCE, | | | | | | | [facility] 07/12/18 at 1245, For 1 dose, | | | | | | | Nuclear Medicine | | | | | | + +-------+ +---------+--------+---+ +---+---+ | | | +---+---+ + +-------+ + +---+---+ | technetium TC-99M sestamibi | Given | 07/13/19 | 34 | | | | (CARDIOLITE) injection 34 | | 19 12:26 | millicur | | | | millicurie 34 millicurie, | | PM PDT | ies | | | | Intravenous, ONCE PRN, Other, | | | | | | | Starting e 07/12/18 at 1225, For | | | | | | | 1 dose, Nuclear Medicine | | | | | | + +-------+ + +---+---+ +---+---+ | | | +---+---+ documented in this encounter"
--- OUTSIDE RECORDS SUMMARY | ~2020-02-03 | XMS | Encounter Summary ---
Demographics + + + | Address | [address] | | | [place] [address] | + + + | Home Phone | | + + + | Preferred Language | Unknown | + + + | Marital Status | Single | + + + | Advent Affiliation | 1013 | + + + | Race | White | + + + | Ethnic Group | Not or | + + + Author + + + | Author | [facility] | | | and [place] | + + + | Organization | [facility] | | | and [...] Team Providers + +------+ + | Care Trim Mechanic Name | Role | Phone | + +------+ + | Wilson Lin MD | PCP | | + +------+ + Reason for Visit + + + | Reason | Comments | + + + | CPAP Follow Up | Sleep Resource | + + + Encounter Details +--------+ + + + + | Date | Type | Department | Care Team | Description | +--------+ + + + + | 11/18/ | Clinical | [facility] | Marck Brar | NEHEMIAH (obstructive | | 2017 | Support | SLEEP DISORDER [address] | MD [place] [address] | sleep apnea) | | | | [address] [place] | [address] [place] | (Primary Dx) | | | | [place] [address] | [place] [address] | | | | | [phone] | [phone] | | | | | | | [...] + + + | Blood Pressure | 130/60 | 11/18/2016 1:41 PM | | | | | PDT | | + + + + + | Pulse | 75 | 11/18/2016 1:41 PM | | | | | PDT | | + + + + + | Temperature | - | - | | + + + + + | Respiratory Rate | 14 | 11/18/2016 1:41 PM | | | | | PDT | | + + + + + | Oxygen Saturation | 97% | 11/18/2016 1:41 PM | | | | | PDT | | + + + + + | Inhaled Oxygen | - | - | | | Concentration | | | | + + + + + | Weight | 69.5 kg (153 lb 4.8 | 11/18/2016 1:41 PM | | | | oz) | PDT | | + + + + + | Height | 165.1 cm (5' 5") | 11/18/2016 1:41 PM | | | | | PDT | | + + + + + | Body Mass Index | 25.51 | 11/18/2016 1:41 PM | | | | | PDT [...] documented as of this encounter Progress Notes Jayson Kraft, Neurodiagnostic Tech - 11/18/2016 1:30 PM PDTFormatting of this note migh t be different from the original. Clinical Sleep Support Visit Patient:Le Rollins Date of :1945 Encounter Date: 11/18/2016 Reason for visit: Chief Complaint Patient presents with CPAP Follow Up Sleep Resource Patient was last seen in our clinic on 11/05/[address] Brar, referred to us by Dr. Cory shirley . PAP was ordered on 11/05/2016 from [place]. Patient has been using PAP for 10 out of 12 ni ghts, wearing the ResMed S-10 auto PAP with settings of 5 to 20, wearing the F-20 mask. ~ Vital signs were: BP 130/60 | Pulse 75 | Resp 14 | Ht 1.651 m (5' 5") | Wt 69.5 kg (1 53 lb 4.8 oz) | SpO2 97% | BMI 25.51 kg/m ~ Patient is doing poor with compliance, mask issues include leak, and bad fit. (Her excus e for not wearing it) She does drool from previous stroke and complained the mask fills up c ausing sores on her lips. I tried her on nasal pillows small and she agreed it was much bett er. She is going to [place] before home to get a chinstrap. ~ Overall leak is 1.2 ~ Compliance >4 hours =58% with AHI of 3.6 ~ Average daily usage of 3:58 Original date of study was on 09/29/2016 that showed an AHI of 21.7 & 98.7 Supine with a O2 N adir of 84% with 2.3 minutes < 88%. Sleep hygiene reviewed with the patient included sleep results, mask fi,t use, care and pro per application. Plan for continuous PAP use: 1. Wear PAP any time you are sleeping 2. Continue with PAP indefinitely 3. Follow up with Aung FLORES in 2 weeks with equipment [facility]ayson [facility]raft [facility]PS[facility]ed [facility] this encounter Plan of Treatment Not on filedocumented as of this encounter Visit Diagnoses + + | Diagnosis | + + | NEHEMIAH (obstructive sleep apnea) - Primary Obstructive sleep apnea (adult) (pediatric) | + + documented in this encounter
--- OUTSIDE RECORDS SUMMARY | ~2020-02-03 | XMS | Encounter Summary ---
Demographics + + + | Address | [address] | | | [place] [address] | + + + | Home Phone | | + + + | Preferred Language | Unknown | + + + | Marital Status | Single | + + + | Mu-Ism Affiliation | 1013 | + + + | Race | White | + + + | Ethnic Group | Not or | + + + Author + + + | Author | [facility] | | | and [place] | + + + | Organization | [facility] | | [...] Team Providers + +------+ + | Care Lamination Technician Name | Role | Phone | [...] + + + + | 07/12/ | Anesthesia | SHERI ALEXANDRA | Denny Cade | | | 2018 | Event | [facility] | MD Serina [address] | | | | | [address] | [address] [place], [place] | | | | | [place], [place] | [address] | | | | | [address] | | | | | | [phone] | | | +--------+ + + + + Anesthesia Record + + + + + | Procedure Name | Responsible | Anesthesia Start | Anesthesia Stop Time | | | Anesthesiologist | Time | | + + + + + | ELOINA (N/A Jhoan) | Denny Cade, | 07/12/17 1137 | 07/12/17 1154 | | | MD | | | + + + + + +----+---+ + + | Da | T | Event | Comment | | te | i | | | | | m | | | | | e | | | +----+---+ + + | 03 | 1 | | | | /1 | 1 | | | | 9/ | 3 | | | | 20 | 4 | | | | 18 | | | | +----+---+ + + | | 1 | An Checkout | Pre-use anesthesia machine/equipment checkout. | | | 1 | | | | | 3 | | | | | 7 | | | +----+---+ + + | | 1 | An Start | Reassessment prior to anesthesia induction/procedure. | | | 1 | | | | | 3 | | | | | 7 | | | +----+---+ + + | | 1 | AN | Per surgeon request | | | 1 | Antibiotic | | | | 3 | declined | | | | 9 | | | +----+---+ + + | | 1 | Pre-Procedu | | | | 1 | ral Timeout | | | | 4 | Completed | | | | 1 | | | +----+---+ + + | | 1 | An | Monitors applied, supplemental O2 place, patient positioned, time | | | 1 | Induction | out taken, IV induction to the point of the patient being | | | 4 | | unconscious and un responsive, breathing spontaneously. | | | 2 | | | +----+---+ + + | | 1 | First | | | | 1 | Inc/Proc St | | | | 4 | | | | | 2 | | | +----+---+ + + | | 1 | Breathing | | | | 1 | Spontaneous | | | | 4 | ly | | | | 3 | | | +----+---+ + + | | 1 | An Stop | Patient handed off to recovery nurse. | | | 5 | | | | | 4 | | | +----+---+ + + +------+ | Meds | +------+ + +--------+ | Name | Total | + +--------+ | lidocaine 2% | 60 mg | + +--------+ | propofol | 150 mg | + +--------+ | LR (Infusion) | 250 mL | + +--------+ + + | Name | + + | O2 Flow Rate (L/Min) | + + + + | No blood administrations on file. | + + +--------+ + + + | Type | Details | Placement | Removal | +--------+ + + + | Read | 07/16/15; 1239; Right; knee; | 07/16/15 1239 by | 08/06/17 0000 by | | only - | Polar-care pad applied in pacu; | Chelle Sethi RN | Yoli Hope RN | | | removed in past; 08/06/17 | | | | Incisi | | | | | on | | | | +--------+ + + + | Brace/ | 07/16/15; 1515; CPM (continuous | 07/16/15 1515 by | 08/06/17 0000 by | | Orthot | passive motion); right knee; 0-45 | Wilma Jay, | Yoli Hope, RN | | ic/Ort | degrees; removed in past; | PT | | | hosis | 08/06/17 | | | +--------+ + + + | Read | 07/26/15; 1500; Right; knee; | 07/26/15 1500 by | 07/19/18 1342 by | | only - | device implantation; 07/19/18 | Tanya King, | User Epic | | | (Completed/Removed by Utility); | RN | | | Incisi | 1342 (Completed/Removed by | | | | on | Utility) | | | +--------+ + + + | Periph | 07/11/17; 1508; Right; | 07/11/17 1508 by | 07/12/17 1712 by | | eral | Antecubital; [id number] | Nga Lanier, | Lori Starks, | | IV | catheter system; 20 gauge; | RN | RN | | | Hematology, Chemistry; 0; | | | | | distraction, tolerated well; no | | | | | longer indicated, removed per | | | | | policy/procedure, site care per | | | | | policy/procedure, catheter/device | | | | | intact; 07/12/17; 1712 | | | +--------+ + + + documented in this encounter Social History + +-------+ +--------+------+ | Tobacco [...] + + documented as of this encounter OR Notes Anesthesia Postprocedure Evaluation - Denny Cade MD - 07/12/2017 12:32 PM PDTForma tting of this note might be different from the original. ANESTHESIA POSTANESTHESIA EVALUATION Le Rollins 72 y.o. female 1945 [id number] Procedure(s) EGD (N/A Mouth) Cooperates? Yes Mental Status Performs simple tasks. Respiratory Satisfactory - Airway patent (self maintained). Cardiovascular Satisfactory - Blood pressure and heart rate acceptable Temperature Satisfactory Pain Satisfactory N/V Control Satisfactory Hydration Satisfactory - No signs of dehydration Complications None apparent Vitals: 07/12/17 1205 07/12/17 1210 07/12/17 1215 BP: 136/77 149/70 147/68 Pulse: 56 57 60 Temp: Resp: 9 03 12 SpO2: 98% 97% 97% Electronically signed by Denny Cade MD 07/12/2017 12:32 [facility] Denny Cade MD at 0 07/12/2017 12:32 PM PDTAnesthesia Preprocedure Evaluation - Denny Cade MD - 07/12/19 6:42 PM PDT ANESTHESIA PREANESTHESIA EVALUATION Le Rollins 72 y.o. female 1945 [id number] Procedure(s): EGD (N/A Mouth) Medical history, anesthesia, medications, allergy, NPO status verified histories reviewed. Review of Systems / Med History Anesthesia History (+) PONV(-) malignant hyperthermia Cardiovascular (+) hypertension, CAD, past PR, angina (+) Valvular disease (+) PVD: , Exercise tolerance >4 METS Pulmonary (+) asthma(+) sleep apnea: known Neurology (+) CVA, fibromyalgia Renal Negative except where noted below. Gastrointestinal/Hepatic (+) hyperlipidemia Endocrine (+) hypothyroidism (+) Diabetes: type 2, NIDDM (+) obesity: Other Negative except where noted below. Cancer Negative except where noted below. Physical Exam Airway MP III, TM >3 FB, Mouth opening >2 FB. Neck: full ROM, extends >30 degrees. Jaw protru gigi normal. Dental Grossly normal except where noted below.; (+) Age appropriate dentition. CV Rhythm regular. Rate Normal. (-) murmur, carotid bruit, peripheral edema, JVD and weak pulses. Pulm Clear to auscultation bilaterally. (-) wheezing, rhonchi, decreased breath sounds, rales and stridor. Neuro Grossly normal. Anesthesia Plan ASA 3 Type: TIVA. Induction: Intravenous. Potential problems: None anticipated. Monitors: Standard ASA monitors. Consent statement:Anesthetic plan, alternatives, risks and benefits discussed with patient and family. Risks discussed included (but were not limited to): dental injury, pain, sore throat, infec tion, voice injury, muscle aches, nausea, respiratory events, . Consenting person understands and agrees to proceed. PARQ. Risks and benefits of TIVA anesthetic discussed with patient and available family members. They agree to proceed, answered all questions. Past Medical History: No date: Asthma 09/2015: CVA (cerebral vascular accident) ([facility]) 02/08/2012: DDD (degenerative disc disease), cervical No date: Diabetes type 2, controlled ([facility]) Comment: Off all medications since surgery No date: Fibromyalgia No date: Hypertension No date: Mixed sleep apnea No date: Murmur, cardiac 07/2015: Myocardial infarction 02/08/2012: Numbness and tingling in right hand No date: Obesity No date: NEHEMIAH (obstructive sleep apnea) No date: Stroke ([facility]) Comment: Asymptomatic - noted on CT scan in distant past. Electronically Signed by: Denny Cade MD ESig date/time: 07/12/2017 11:33 documented in this encounter Plan of Treatment Not on filedocumented as of this encounter Visit Diagnoses Not on filedocumented in this encounter Administered Medications + +---------+ +------+------+------+ | Medication Order | MAR | Action | Dose | Rate | Site | | | Action | Date | | | | + +---------+ +------+------+------+ | lactated ringers (LR) infusion | New Bag | 07/13/19 | | | | | Intravenous, CONTINUOUS PRN, | | 18 11:20 | | | | | Starting 07/12/17 at 1120, | | AM PDT | | | | | Anesthesia Intra-op | | | | | | + +---------+ +------+------+------+ +---+---+ | | | +---+---+ + +-------+ +-------+---+---+ | lidocaine (PF) 2% injection | Given | 07/13/19 | 60 mg | | | | Intravenous, PRN, Starting Mon | | 18 11:39 | | | | | 07/12/17 at 1139, Anesthesia | | AM PDT | | | | | Intra-op | | | | | | + +-------+ +-------+---+---+ +---+---+ | | | +---+---+ + +-------+ +-------+---+---+ | propofol (DIPRIVAN) injection | Given | 20 | 50 mg | | | | Intravenous, PRN, Starting Mon | | 18 11:45 | | | | | 07/12/17 at 1142, Anesthesia | | AM PDT | | | | | Intra-op | | | | | | + +-------+ +-------+---+---+ +-------+ +--------+---+---+ | Given | 07/12/20 | 100 mg | | | | | 18 11:42 | | | | | | AM PDT | | | | +-------+ +--------+---+---+ +---+---+ | | | +---+---+ documented in this encounter"
--- OUTSIDE RECORDS SUMMARY | ~2020-02-03 | XMS | Encounter Summary ---
Demographics + + + | Address | [address] | | | [place] [address] | + + + | Home Phone | | + + + | Preferred Language | Unknown | + + + | Marital Status | Single | + + + | Hinduism Affiliation | [id number] | + + + [...] Team Providers + +------+ + | Care Endbander Name | Role | Phone | + +------+ + PCP | Unavailable | + +------+ + Reason for Visit + + + | Reason | Comments | + + + | Tailbone Pain | | + + + Encounter Details +--------+ + + + + | Date | Type | Department | Care Team | Description | +--------+ + + + + | 08/06/ | Emergency | [facility] | Jw, | Closed fracture of | | 2018 | | [facility] | MD [address] | sacrum, unspecified | | | | [place] [address] [address] | [address] | portion of [facility], | | | | [place], [place] | [place] [address] | initial encounter | | | | [address] | [phone] | ([facility]) (Primary Dx); | | | | [phone] | | Vertigo | +--------+ + + + + Social [...] + + + | Blood Pressure | 159/76 | 08/06/2017 9:17 AM | | | | | PDT | | + + + + + | Pulse | 73 | 08/06/2017 9:17 AM | | | | | PDT | | + + + + + | Temperature | 37.1 C (98.7 F) | 08/06/2017 9:17 AM | | | | | PDT | | + + + + + | Respiratory Rate | 15 | 08/06/2017 9:17 AM | | | | | PDT | | + + + + + | Oxygen Saturation | 100% | 08/06/2017 9:17 AM | | | | | PDT | | + + + + + | Inhaled Oxygen | - | - | | | Concentration | | | | + + + + + | Weight | 68 kg (150 lb) | 08/06/2017 9:17 AM | | | | | PDT | | + + + + + | Height | 162.6 cm (5' 4") | 08/06/2017 9:17 AM | | | | | PDT | | + + + + + | Body Mass Index | 25.75 | 08/06/2017 9:17 AM | | | | | PDT [...] as of this encounter Discharge Instructions Instructions Nate Escalera MD - 08/06/2017X-ray shows a sacral fracture, did speak wi orthopedics and they did not feel that there was anything surgical that needed to be done for this. You can get a ring/doughnut pillow to take the pressure off the area. Ice and T ylenol for discomfort, follow-up your Dr. as needed. For the dizziness I am prescribing you some Antivert which is typically a seasickness medication but can help with some vertigo. Push fluids to maintain hydration, follow-up your Dr. as needed. MRI did not show any acute stroke. Thank you for visiting [facility], Emergency Department. Please follow up with your primary care provider in the next 1-3 days unless otherwise spec ified. If you review your results on "My Charts" and there happens to be any concerns or abnormali ties that you have a question about, please follow up with your primary care provider to dis cuss these results. Please read all informational handouts and medication instructions, if provided. Please be aware that although we feel you are safe for discharge at this time, disease proc esses are dynamic and your condition may change. If you have any significant concerns about your condition that you fear may be emergent in nature, please return for re-evaluation. Changes in the disease process may allow certain conditions to be detected at a different t alessia. You would not be released today if there was evidence of an emergent medical or surgica l condition that would benefit from admission to the hospital or emergent surgery. Although this emergency department is staffed with highly trained physicians that are board certified in emergency medicine, unfortunately not all significant problems are detectable during the time of evaluation. This is why it is important for you to return if significantly concerne d, or otherwise follow up with your primary care provider for re-evaluation. documented in this encounter Medications at Time [...] documented as of this encounter ED Notes Nate Escalera MD - 08/06/2017 1:17 PM PDT eMERGENCY dEPARTMENT eNCOUnter ED15/ED15 CHIEF COMPLAINT Chief Complaint Patient presents with Tailbone Pain HPI Le Rollins is a 72 y.o. female who presents to the emergency department with a chief complaint of tailbone pain. Patient was given rate to go on a bus trip yesterday when she lost her balance and fell. She landed on her tailbone and has had pain since that time. Sh umm has been moving slowly and does complain of a little bit of dizziness. Patient does have a history of strokes and was concerned that she may have had another stroke as well as boris rn that she has broken her tailbone. She denies headache or any other injuries at this time . PAST MEDICAL HISTORY Past Medical History: Diagnosis Date Asthma CVA (cerebral vascular accident) ([facility]) 09/2015 DDD (degenerative disc disease), cervical 02/08/2012 Diabetes type 2, controlled ([facility]) Off all medications since surgery Fibromyalgia Hypertension Mixed sleep apnea Murmur, cardiac Myocardial infarction ([facility]) 07/2015 Numbness and tingling in right hand 02/08/2012 Obesity NEHEMIAH (obstructive sleep apnea) Stroke ([facility]) Asymptomatic - noted on CT scan in distant past SURGICAL HISTORY Past Surgical History: Procedure Laterality Date APPENDECTOMY 1958 CARDIAC CATHERIZATION N/A 07/27/2015 Procedure: CV DIAGNOSTIC CARDIAC CATH; Surgeon: Иван Kaur MD; Location: [facility] CARDIO VASCULAR LAB CHOLECYSTECTOMY 1988 GASTRIC BYPASS SURGERY 2011 HYSTERECTOMY, TOTAL ABDOMINAL 1973 right carotid stent 10/09 right knee arthroscopy 1989 THYROIDECTOMY 2004 THYROIDECTOMY, PARTIAL 1985 TONSILLECTOMY AND ADENOIDECTOMY 1950 TOTAL KNEE ARTHROPLASTY Right 07/16/2015 Procedure: Right Total Knee Arthroplasty; Surgeon: Jordin Fernandez MD; Location: [facility] MAIN OR UPPER GASTROINTESTINAL ENDOSCOPY N/A 07/12/2017 Procedure: EGD; Surgeon: Venkatesh Liz MD; Location: [facility] MEDICAL PROCEDURE UNIT UVULOPALATOPHARYGOPLASTY 1987 CURRENT MEDICATIONS acetaminophen aspirin atorvaSTATin busPIRone calcium-vitamin D clopidogrel cyanocobalamin diclofenac DULoxetine DULoxetine EPINEPHrine auto-injector ferrous gluconate isosorbide mononitrate levothyroxine lisinopril-hydrochlorothiazide Magnesium meclizine metFORMIN Multiple Vitamins-Minerals (MULTIVITAMIN PO) nitroglycerin pantoprazole UNABLE TO FIND ALLERGIES Allergies Allergen Reactions Aripiprazole Bee Venom Clonidine Derivatives Insulin Glargine Insulin Lispro Shellfish-Derived Products Statins Patient could not remember which statin caused her problems. 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 PHYSICAL EXAM VITAL SIGNS: (first vital signs):Temp: 37.1 C (98.7 F) Pulse: 73 Resp: 15 SpO2: 100 % B P: 159/76 Constitutional: Well developed, Well nourished, No acute distress, Non-toxic appearance. HENT: Normocephalic, Atraumatic. Bilateral external ears normal, Oropharynx moist, no ton vandana enlargement, exudates, or ulcerations. Nose normal without rhinorrhea. Neck- Normal range of motion, No tenderness, Supple, No stridor. Eyes: PERRL, EOMI, Conjunctiva normal without discharge. There is no evidence of scleral injection. Respiratory: Normal breath sounds, No respiratory distress, No rales, rhonchi, or wheezing . No reproducible chest tenderness. Cardiovascular: Normal heart rate and rhythm. No rubs, gallops, or murmurs. GI: Abdomen is soft, non-tender. There are normal bowel sounds. No palpable masses or or ganomegaly. Musculoskeletal: Intact distal pulses, No clubbing, cyanosis, or edema. Good range of mot ion in all major joints. No tenderness to palpation or major deformities noted. Back- No ten derness. Pain to palpation over the mid sacrum. Integument: Warm and Dry, without evidence of rash or erythema. Lymphatic: No palpable lymphadenopathy noted. Neurologic: Alert & oriented x 3, Normal motor function, Normal sensory function, No focal deficits noted. Patient reporting some generalized dizziness, not necessarily worsened wit h movement. Psychiatric: Affect normal, Judgment normal, Mood normal. EKG 08/06/2017 9:50 Normal sinus rhythm rate of 65, ID intervals 178, QTc 434. Normal axis normal intervals no evidence of acute STEMI or other ectopy this is a normal ECG. EKG was personally reviewed and interpreted by myself, Nate Escalera MD. RADIOLOGY Xr Sacrum And Coccyx Result Date: 08/06/2017 XR SACRUM AND COCCYX 08/06/2017 10:22 AM HISTORY: TAILBONE PAIN. COMPARISON: None. FINDINGS: There is slight step off involving the mid sacrum suspicious for fracture of indeterminate age. S1 is a transitional vertebral body. Mild anterolistheses are noted of L3 over L4, L4 o onur L5, and L5 over S1. Multilevel facet sclerosis and hypertrophy are noted of the lumbar s pine. There are clips in the bilateral lower abdomen and right pelvis. IMPRESSION - Slight s tep-off involving mid sacrum suspicious for fracture of indeterminate age. Dictated and Sign ed by: Ramon Roger MD Electronically signed: 08/06/2017 11:01 AM Mri Brain Wo Contrast Result Date: 08/06/2017 TECHNIQUE: MRI of the brain with sequences to include sagittal T1,, axial T1, coronal T1, axial diffusion-weighted imaging and ADC maps, axial T2, axial T2 FLAIR, axial susceptibilit y weighted imaging. CLINICAL INFORMATION: dizzines COMPARISON: CT dated 07/11/2017 and 012 FINDINGS: Orbits have a normal appearance. Minimal mucosal thickening at the ethmoid air cells. No intracranial blood product or abnormal extra-axial fluid collection. No evidence of intracranial mass or mass effect. Mid right MCA distribution encephalomalacia/gliosis wit h additional small area of encephalomalacia/gliosis involving the left parietal lobe, hospitality job titles ior left MCA distribution. Normal appearance of the midline developmental structures. Multip le scattered T2 hyperintense white matter foci. Mild parenchymal volume loss with mild prom inence of the CSF spaces. No hydrocephalus. Diffusion weighted imaging and ADC maps show no areas of high or low signal respectively to suggest acute ischemia/infarction. No suspiciou s susceptibility artifact. No focal vascular flow void abnormality identified. IMPRESSION - No acute infarction or hemorrhage. Stable right mid MCA and left posterior MCA distributio n encephalomalacia/gliosis. Mild T2 hyperintense white matter changes, most likely chronic m icrovascular disease. Dictated and Signed by: Carmelo Marino MD Electronically signed: 07/25 12:21 PM Labs: Results for orders placed or performed during the hospital encounter of 08/06/17 CBC with Differential Result Value Ref Range WBC 5.5 4.0 - 11.0 K/uL RBC 4.48 3.70 - 5.20 M/uL Hgb 11.9 11.5 - 16.0 g/dL Hct 37.1 34.0 - 47.0 % MCV 82.8 (L) 83.0 - 101.0 fL MCH 26.6 (L) 28.0 - 35.0 pg MCHC 32.1 32.0 - 36.0 g/dL RDW-CV 25.3 (H) <15.0 % Platelet Count 235 140 - 440 K/uL MPV 8.4 fL % Neutrophils 69.8 45.0 - 82.0 % % Lymphocytes 18.0 (L) 20.0 - 45.0 % % Monocytes 8.2 4.0 - 12.0 % % Eosinophils 2.8 0.0 - 5.0 % % Basophils 1.2 (H) 0.0 - 1.0 % Absolute Neutrophils 3.80 1.80 - 8.50 K/uL Absolute Lymphocytes 1.00 0.60 - 3.20 K/uL Absolute Monocytes 0.40 0.00 - 1.00 K/uL Absolute Eosinophils 0.20 0.00 - 0.40 K/uL Absolute Basophils 0.10 0.00 - 0.10 K/uL Comprehensive Metabolic Panel Result Value Ref Range NA 134 (L) 136 - 149 mmol/L K 3.7 3.5 - 5.1 mmol/L CL 100 98 - 109 mmol/L CO2 28 24 - 31 mmol/L ANION GAP 6 3 - 16 mmol/L GLUCOSE 153 (H) 70 - 109 mg/dL BUN 13 7 - 18 mg/dL Creatinine, Serum/Plasma 0.83 0.60 - 1.30 mg/dL eGFR if not >60 >=60 mL/min/1.73m2 CALCIUM 8.6 8.3 - 10.5 mg/dL ALBUMIN 3.7 3.2 - 5.0 g/dL BILIRUBIN TOTAL 0.8 0.1 - 1.5 mg/dL Total protein 6.5 6.0 - 7.8 g/dL AST 39 10 - 42 U/L ALT 30 6 - 45 U/L ALK PHOS 114 (H) 40 - 110 U/L GLOBULIN 2.8 2.1 - 3.8 g/dL Albumin/Globulin ratio 1.3 0.8 - 2.0 BUN/CREA 15.7 Troponin I Result Value Ref Range Troponin I 0.01 <0.06 ng/mL ECG 12 lead Result Value Ref Range INTERPRETATION TEXT Not Confirmed PROCEDURES None Medications Administered During This Visit: Last set of Vital Signs: Temp: 37.1 C (98.7 F) Pulse: 73 Resp: 15 SpO2: 100 % BP: 159/7 6 ED COURSE & MEDICAL DECISION MAKING Pertinent Labs & Imaging studies reviewed. (See chart for details) Medication and allergies list reviewed. Nurse's notes and old records reviewed. On patient's arrival she was evaluated for dizziness and concern about possible tailbone pa in. She reports that she was standing getting ready to get on the bus yesterday when she fe ll and landed on her tailbone. She has been having significant buttock pain since that time and ongoing dizziness. As of a history of strokes and is worried that she may have had ano ther stroke. Physical exam is fairly unremarkable with exception of some sacral discomfort. No pain to palpation of the coccyx and this feels stable. X-ray of the coccyx shows a sacral fracture. MRI was acquired to evaluate the brain for possible stroke, this was did not show any acut e findings no signs of stroke or bleed. Lab work was reassuring, CBC shows no signs of an i nfection with white count 5.5, she is not anemic, differential is unremarkable. Conference of metabolic panel shows normal lites lites glucose of 153, creatinine 0.83 no signs of acut e renal dysfunction. LFTs are normal without signs of hepatic injury or biliary obstruction . Alk phos is minimally elevated 114 of uncertain etiology. Troponin is negative at 0.01 I do not see signs of an acute cardiac injury. A second troponin was not necessary as this w as evaluating yesterday's event. ECG was unremarkable. At this time I have prescribed the patient some Antivert to help with the vertiginous sympt oms. I've also instructed her to push fluids and maintain hydration. She consented on a do nut pillow to help with the discomfort in the sacrum. Follow-up with her doctor as needed r eturn for any other concerns. Fracture was discussed with Dr. Harris who did not feel that a intervention was necessary for the sacral fracture. FINAL IMPRESSION 1. Closed fracture of sacrum, unspecified portion of sacrum, initial encounter ([facility]) 2. Vertigo FOLLOW-UP [place], [address] [facility] [address] NEW PRESCRIPTIONS New Prescriptions MECLIZINE (ANTIVERT) 25 MG TABLET Take 1 tablet by mouth 3 times daily as needed. Portions of this chart may have been created with voice recognition software. Occasional " wrong-word" or "sound-alike" substitutions may have occurred due to the inherent limitations of voice recognition software. Please read the chart carefully and recognize, using [employer], where these substitutions may have occurred. Nate Escalera MD 08/06/17 1323 documented in this encounter Plan of Treatment Not on filedocumented as of this encounter Procedures + +--------+ + + + | Procedure Name | Priori | Date/Time | Associated Diagnosis | Comments | | | ty | | | | + +--------+ + + + | MRI BRAIN WO | Routin | 08/06/2017 | | Results for this | | CONTRAST | e | 11:58 AM | | procedure are in the | | | | PDT | | results section. | + +--------+ + + + | XR SACRUM AND COCCYX | STAT | 08/06/2017 | | Results for this | | | | 10:22 AM | | procedure are in the | | | | PDT | | results section. | + +--------+ + + + | TROPONIN I | STAT | 08/06/2017 | | Results for this | | | | 9:58 AM | | procedure are in the | | | | PDT | | results section. | + +--------+ + + + | CBC WITH | STAT | 08/06/2017 | | Results for this | | DIFFERENTIAL | | 9:58 AM | | procedure are in the | | | | PDT | | results section. | + +--------+ + + + | COMPREHENSIVE | STAT | 08/06/2017 | | Results for this | | METABOLIC PANEL | | 9:58 AM | | procedure are in the | | | | PDT | | results section. | + +--------+ + + + | ECG 12 LEAD | STAT | 08/06/2017 | | Results for this | | | | 9:50 AM | | procedure are in the | | | | PDT | | results section. | + +--------+ + + + documented in this encounter Results MRI Brain wo Contrast (08/06/2017 11:58 AM PDT) + + | Specimen | + + | | + + + + + | Narrative | Performed At | + + + | TECHNIQUE: MRI of the brain with sequences to include sagittal | [facility] | | T1,, axial T1, coronal T1, axial diffusion-weighted imaging and ADC | | | maps, axial T2, axial T2 FLAIR, axial susceptibility weighted | | | imaging. CLINICAL INFORMATION: dizzines COMPARISON: CT dated | | | 07/11/2017 and 01/31/2012 FINDINGS: Orbits have a normal | | | appearance. Minimal mucosal thickening at the ethmoid air cells. | | | No intracranial blood product or abnormal extra-axial fluid | | | collection. No evidence of intracranial mass or mass effect. Mid | | | right MCA distribution encephalomalacia/gliosis with additional small | | | area of encephalomalacia/gliosis involving the left parietal lobe, | | | posterior left MCA distribution. Normal appearance of the midline | | | developmental structures. Multiple scattered T2 hyperintense | | | white matter foci. Mild parenchymal volume loss with mild | | | prominence of the CSF spaces. No hydrocephalus. Diffusion | | | weighted imaging and ADC maps show no areas of high or low signal | | | respectively to suggest acute ischemia/infarction. No suspicious | | | susceptibility artifact. No focal vascular flow void abnormality | | | identified. IMPRESSION - No acute infarction or | | | hemorrhage. Stable right mid MCA and left posterior MCA | | | distribution encephalomalacia/gliosis. Mild T2 hyperintense white | | | matter changes, most likely chronic microvascular disease. | | | Dictated and Signed by: Carmelo Marino MD Electronically signed: | | | 08/06/2017 12:21 PM | | + + + + + | Procedure Note | + + | Maurice, Rad Results In - 08/06/2017 12:24 PM PDT | | TECHNIQUE: MRI of the brain with sequences to include sagittal T1,, axial T1, | | coronal T1, axial diffusion-weighted imaging and ADC maps, axial T2, axial T2 | | FLAIR, axial susceptibility weighted imaging. | | | | CLINICAL INFORMATION: dizzines | | | | COMPARISON: CT dated 07/11/2017 and 01/31/2012 | | | | FINDINGS: | | Orbits have a normal appearance. | | | | Minimal mucosal thickening at the ethmoid air cells. | | | | No intracranial blood product or abnormal extra-axial fluid collection. No | | evidence of intracranial mass or mass effect. | | | | Mid right MCA distribution encephalomalacia/gliosis with additional small area | | of encephalomalacia/gliosis involving the left parietal lobe, posterior left MCA | | distribution. | | | | Normal appearance of the midline developmental structures. | | | | Multiple scattered T2 hyperintense white matter foci. Mild parenchymal volume | | loss with mild prominence of the CSF spaces. No hydrocephalus. | | | | Diffusion weighted imaging and ADC maps show no areas of high or low signal | | respectively to suggest acute ischemia/infarction. | | | | No suspicious susceptibility artifact. | | | | No focal vascular flow void abnormality identified. | | | | | | IMPRESSION - | | No acute infarction or hemorrhage. | | | | Stable right mid MCA and left posterior MCA distribution | | encephalomalacia/gliosis. | | | | Mild T2 hyperintense white matter changes, most likely chronic microvascular | | disease. | | | | Dictated and Signed by: Carmelo Marino MD | | Electronically signed: 08/06/2017 12:21 PM | + + + +---------+ + + | Performing | Address | City/State/Zipcode | Phone Number | | Organization | | | | + +---------+ + + | [facility] | | | | + +---------+ + + XR Sacrum and Coccyx (08/06/2017 10:22 AM PDT) + + | Specimen | + + | | + + + + + | Narrative | Performed At | + + + | XR SACRUM AND COCCYX 08/06/2017 10:22 AM HISTORY: TAILBONE PAIN. | [facility] | | COMPARISON: None. FINDINGS: There is slight step off | | | involving the mid sacrum suspicious for fracture of indeterminate | | | age. S1 is a transitional vertebral body. Mild anterolistheses are | | | noted of L3 over L4, L4 over L5, and L5 over S1. Multilevel facet | | | sclerosis and hypertrophy are noted of the lumbar spine. There are | | | clips in the bilateral lower abdomen and right pelvis. IMPRESSION | | | - Slight step-off involving mid sacrum suspicious for fracture of | | | indeterminate age. Dictated and Signed by: Ramon Roger MD | | | Electronically signed: 08/06/2017 11:01 AM | | + + + + + | Procedure Note | + + | Maurice, Rad Results In - 08/06/2017 11:04 AM PDT XR SACRUM AND COCCYX 08/06/2017 10:22 AM | | | | HISTORY: TAILBONE PAIN. | | | | COMPARISON: None. | | | | FINDINGS: | | There is slight step off involving the mid sacrum suspicious for fracture of | | indeterminate age. S1 is a transitional vertebral body. Mild anterolistheses are | | noted of L3 over L4, L4 over L5, and L5 over S1. Multilevel facet sclerosis and | | hypertrophy are noted of the lumbar spine. There are clips in the bilateral | | lower abdomen and right pelvis. | | | | IMPRESSION - | | Slight step-off involving mid sacrum suspicious for fracture of indeterminate | | age. | | | | Dictated and Signed by: Ramon Roger MD | | Electronically signed: 08/06/2017 11:01 AM | + + + +---------+ + + | Performing | Address | City/State/Zipcode | Phone Number | | Organization | | | | + +---------+ + + | [facility] | | | | + +---------+ + + Troponin I (08/06/2017 9:58 AM PDT) + + + + + + | Component | Value | Ref Range | Performed | Pathologist | | | | | At | Signature | + + + + + + | Troponin I | 0.01Comment: Reference | <0.06 ng/mL | [facility] | [...] | | | | | | [employer] | | | | | [...] + | [facility] [facility] | [address] | [place] | [phone] | | [facility] | | [address] | | | - LABORATORY | | | | + + + + + Comprehensive Metabolic Panel (08/06/2017 9:58 AM PDT) + + + + + + | Component | Value | Ref Range | Performed | Pathologist | | | | | At | Signature | + + + + + + | Na | 134 (L) | 136 - 149 | [facility] | | | | | mmol/L | [facility] | | | | | | [facility] | | | | | | [facility] - | | | | | | LABORATORY | | + + + + + + | K | 3.7 | 3.5 - 5.1 | [facility] | | | | | mmol/L | [facility] | | | | | | MEDICAL | | | | | | CENTER - | | | | | | LABORATORY | | + + + + + + | Cl | 100 | 98 - 109 mmol/L | [facility] | | | | | | [facility] | | | | | | MEDICAL | | | | | | CENTER - | | | | | | LABORATORY | | + + + + + + | CO2 | 28 | 24 - 31 mmol/L | [facility] [...] 13 | 7 - 18 mg/dL | [facility] | | | | | | [facility] | | | | | | MEDICAL | | | | | | CENTER - | | | | | | LABORATORY | | + + + + + + | Creatinine | 0.83 | 0.60 - 1.30 | [facility] | | | | | mg/dL | [facility] | | | | | | MEDICAL | | | | | | CENTER - | | | | | | LABORATORY | | + + + + + + | eGFR, | >60Comment: GLOMERULAR | >=60 | [facility] | | | non- | FILTRATION | mL/min/1.73m2 | [facility] | | | [facility] | RATE,ESTIMATED | | MEDICAL | | | | mL/min/1.62z4Duzv than | | CENTER - | | [...] + + + + | Calcium | 8.6 | 8.3 - 10.5 | [facility] | | | | | mg/dL | [facility] | | | | | | MEDICAL | | | | | | CENTER - | | | | | | LABORATORY | | + + + + + + | Albumin | 3.7 | 3.2 - 5.0 g/dL | [facility] | | | | | | [facility] | | | | | | MEDICAL | | | | | | CENTER - | | | | | | LABORATORY | | + + + + + + | Bilirubin | 0.8Comment: This is an | 0.1 - 1.5 mg/dL | [facility] | | | Total | appended report. These | | [facility] | | | | results have been | | MEDICAL | | | | appended to a previously | | CENTER - | | | | preliminary verified | | LABORATORY | | | | report. | | | | + + + + + + | Total | 6.5 | 6.0 - 7.8 g/dL | [facility] | | | Protein | | | [facility] | | | | | | MEDICAL | | | | | | CENTER - | | | | | | LABORATORY | | + + + + + + | AST | 39Comment: This is an | 10 - 42 [...] + + + + | ALT | 30Comment: This is an | 6 - 45 [...] + + + + | Alkaline | 114 (H)Comment: This is | 40 - 110 U/L | [facility] | | | Phosphatase | an appended report. | | [facility] | | | | These results have been | | MEDICAL | | | | appended to a previously | | CENTER - | | | | preliminary verified | | LABORATORY | | | | report. | | | | + + + + + + | Globulin | 2.8 | 2.1 - 3.8 g/dL | [facility] | | | | | | [facility] | | | | | | MEDICAL | | | | | | CENTER - | | | | | | LABORATORY | | + + + + + + | Albumin/Karrie | 1.3 | 0.8 - 2.0 | [facility] | | | bulin Ratio | | | [facility] | | | | | | MEDICAL | | | | | | CENTER - | | | | | | LABORATORY | | + + + + + + | BUN/Creatin | 15.7 | | [facility] | | | ine Ratio | | | [facility] | | [...] ST. | [address] | [place] | [phone] | | [facility] | | [address] | | | - LABORATORY | | | | + + + + + CBC with Differential (08/06/2017 9:58 AM PDT) + + + + + + | Component | Value | Ref Range | Performed | Pathologist | | | | | At | Signature | + + + + + + | White Blood | 5.5 | 4.0 - 11.0 K/uL | [facility] | | | Cells | | | [facility] | | | | | | MEDICAL | | | | | | CENTER - | | | | | | LABORATORY | | + + + + + + | Red Blood | 4.48 | 3.70 - 5.20 | [facility] | [...] + + + + | Hematocrit | 37.1 | 34.0 - 47.0 % | [facility] | | | | | | [facility] | | | | | | [facility]ICAL | | | | | | CENTER - | | | | | | LABORATORY | | + + + + + + | MCV | 82.8 (L) | 83.0 - 101.0 fL | [facility] | | | | | | [facility] | | | | | | [facility]ICAL | | | | | | CENTER - | | | | | | LABORATORY | | + + + + + + | MCH | 26.6 (L) | 28.0 - 35.0 pg | [facility] | | | | | | [facility] | | | | | | MEDICAL | | | | | | CENTER - | | | | | | LABORATORY | | + + + + + + | MCHC | 32.1 | 32.0 - 36.0 | [facility] | | | | | g/dL | [facility] | | | | | | MEDICAL | | | | | | CENTER - | | | | | | LABORATORY | | + + + + + + | RDW-CV | 25.3 (H) | <15.0 % | [facility] | | | | | | [facility] | | | | | | [facility] | | | | | | CENTER - | | | | | | LABORATORY | | + + + + + + | Platelet | 235 | 140 - 440 K/uL | [facility] | | | Count | | | [facility] | | | | | | MEDICAL | | | | | | CENTER - | | | | | | LABORATORY | | + + + + + + | MPV | 8.4 | fL | [facility] | | | | | | [facility] | | | | | | [facility]ICAL | | | | | | CENTER - | | | | | | LABORATORY | | + + + + + + | % | 69.8 | 45.0 - 82.0 % | [facility] | | | Neutrophils | | | [facility] | | | | | | MEDICAL | | | | | | CENTER - | | | | | | LABORATORY | | + + + + + + | % | 18.0 (L) | 20.0 - 45.0 % | [facility] | | | Lymphocytes | | | [facility] | | | | | | MEDICAL | | | | | | CENTER - | | | | | | LABORATORY | | + + + + + + | % Monocytes | 8.2 | 4.0 - 12.0 % | [facility] | | | | | | [facility] | | | | | | MEDICAL | | | | | | CENTER - | | | | | | LABORATORY | | + + + + + + | % | 2.8 | 0.0 - 5.0 % | [facility] | | | Eosinophils | | | [facility] | | | | | | MEDICAL | | | | | | CENTER - | | | | | | LABORATORY | | + + + + + + | % Basophils | 1.2 (H) | 0.0 - 1.0 % | [facility] | | | | | | [facility] | | | | | | MEDICAL | | | | | | CENTER - | | | | | | LABORATORY | | + + + + + + | Absolute | 3.80 | 1.80 - 8.50 | [facility] | | | Neutrophils | | K/uL | [facility] | | | | | | MEDICAL | | | | | | CENTER - | | | | | | LABORATORY | | + + + + + + | Absolute | 1.00 | 0.60 - 3.20 | [facility] | | | Lymphocytes | | K/uL | [facility] | | | | | | MEDICAL | | | | | | CENTER - | | | | | | LABORATORY | | + + + + + + | Absolute | 0.40 | 0.00 - 1.00 | [facility] | | | Monocytes | | K/uL | [facility] | | | | | | MEDICAL | | | | | | CENTER - | | | | | | LABORATORY | | + + + + + + | Absolute | 0.20 | 0.00 - 0.40 | [facility] | | | Eosinophils | | K/uL | [facility] | | | | | | MEDICAL | | | | | | CENTER - | | | | | | LABORATORY | | + + + + + + | Absolute | 0.10 | 0.00 - 0.10 | [facility] | | | Basophils | | K/uL | [facility] | | | | | [...] [address] | [place] | [phone] | | [facility] | | [address] | | | - LABORATORY | | | | + + + + + ECG 12 lead (08/06/2017 9:50 AM PDT) + + + + + + | Component | Value | Ref Range | Performed | Pathologist | | | | | At | Signature | + + + + + + | VENTRICULAR | 65 | BPM | [facility] | | | RATE EKG | | | | | + + + + + + | ATRIAL RATE | 65 | BPM | [facility] | | + + + + + + | P-R | 178 | ms | [facility] | | | INTERVAL | | | | | + + + + + + | QRS | 82 | ms | [facility] | | [...] + + | P WAVE AXIS | 67 | degrees | [facility] | | + + + + + + | QRS AXIS | 54 | degrees | [facility] | | + + + + + + | T AXIS | 58 | degrees | [facility] | | + + + + + + | INTERPRETAT | Normal sinus | | [facility] | | | ION TEXT | rhythmNormal ECGWhen | | | | | | compared with ECG of | | | | | | -JUN-2017 | | | | | | 14:22,Criteria for | | | | | | Inferior infarct are no | | | | | | longer | | | | | | presentNonspecific T | | | | | | wave abnormality no | | | | | | longer evident in | | | | | | Inferior leadsConfirmed | | | | | | by NATHANAEL AGOSTO MD | | | | | | ([id number]) on 08/07/2017 | | | | | | 8:36:53 AM | | | | + + [...] + | Diagnosis | + + | Closed fracture of sacrum, unspecified portion of sacrum, initial encounter (HCC) - | | Primary | + + | Vertigo Dizziness and giddiness | + + documented in this encounter
--- OUTSIDE RECORDS SUMMARY | ~2020-02-03 | XMS | Encounter Summary ---
Demographics + + + | Address | [address] | | | [place] [address] | + + + | Home Phone [...] + + + | Author | [facility] | | | and [place] | + + + | Organization | [facility] | | [...] Team Providers + +------+ + | Care Acid Dumper Name | Role | Phone | + +------+ + | Wilson Lin MD | PCP | | + +------+ + Encounter Details +--------+ + + + + | Date | Type | Department | Care Team | Description | +--------+ + + + + | 07/31/ | Imaging | [facility] | Provider, | | | 2020 | Exam | [facility] | [address] | | | | | IMAGING [address] | [address] | | | | | [address] [place] | [place] [address] | | | | | [place] [address] | | | | | | [phone] | | | +--------+ + + + [...] XR KNEE RIGHT 1 - 2 | Routin | 07/06/2018 | | Results for this | | VW | e | 12:00 AM | | procedure are in the | | | | PDT | | results section. | + +--------+ + + + documented in this encounter Results XR Knee Right 1 - 2 Vw (07/06/2018 12:00 AM PDT) + + | Specimen [...]
--- OUTSIDE RECORDS SUMMARY | ~2020-02-03 | XMS | Encounter Summary ---
Demographics + + + | Address | [address] | | | [place] [address] | + + + | Home Phone | | + + + | Preferred Language | Unknown | + + + | Marital Status | Single | + + + | Yarsanism Affiliation | 1013 | + + + | Race | White | + + + | Ethnic Group | Not or | + + + Author + + + | Author | [facility] | | | and [place] | + + + | Organization | [facility] | | [...] Team Providers + +------+ + | Care Escrow Secretary Name | Role | Phone | + +------+ + PCP | Unavailable | + +------+ + Encounter Details +--------+ + + + + | Date | Type | Department | Care Team | Description | +--------+ + + + + | 09/16/ | Hospital | [facility] | Toro Diamond MD | | | 2006 | Encounter | [facility] | [address] [place] | | | | | [address] [place] | [address] [place], [place] | | | | | [place], [place] | [address] | | | | | [address] | | | | | | [phone] | | | +--------+ + + + [...]
--- OUTSIDE RECORDS SUMMARY | ~2020-02-03 | XMS | Encounter Summary ---
Demographics + + + | Address | [address] | | | [place] [address] | + + + | Home Phone | | + + + | Preferred Language | Unknown | + + + | Marital Status | Single | + + + | Episcopal Affiliation | 1013 | + + + | Race | White | + + + | Ethnic Group | Not or | + + + Author + + + | Author | [facility] | | | and [place] | + + + | Organization | [facility] | | | [...] Team Providers + +------+ + | Care Application Development Team Lead Name | Role | Phone | + +------+ + | Warren Harrington | PCP | | + +------+ + Reason for Referral Diagnostic/Screening (Routine) + +--------+ + + + + | Status | Reason | Specialty | Diagnoses / | Referred By | Referred To | | | | | Procedures | Contact | Contact | + +--------+ + + + + | Pending | | Cardiology | Diagnoses | Mason, | | | Review | | | Coronary | Jazmyn, | | | | | | artery | [address] | | | | | | disease | [address] | | | | | | involving | [place] | | | | | | [place] | [place] | | | | | | coronary | [address] | | | | | | artery of | Phone: | | | | | | [place] heart | [phone] | | | | | | without | Fax: | | | | | | angina | [phone] | | | | | | pectoris | | | | | | | History of | | | | | | | non-ST | | | | | | | elevation | | | | | | | myocardial | | | | | | | infarction | | | | | | | (NSTEMI) | | | | | | | Paroxysmal | | | | | | | atrial | | | | | | | fibrillation | | | | | | | (HCC) | | | | | | | Essential | | | | | | | hypertension | | | | | | | with goal | | | | | | | blood | | | | | | | pressure | | | | | | | less than | | | | | | | 140/90 | | | | | | | History of | | | | | | | stroke | | | | | | | Moderate | | | | | | | aortic valve | | | | | | | | | | | | | | insufficienc | | | | | | | y Moderate | | | | | | | to severe | | | | | | | aortic | | | | | | | stenosis | | | | | | | Procedures | | | | | | | ECHO | | | | | | | Complete | | | + +--------+ + + + + Reason for Visit + + + | Reason | Comments | + + + | Follow-up | Echo, Carotid done | + + + Encounter Details +--------+---------+ + + + | Date | Type | Department | Care Team | Description | +--------+---------+ + + + | 12/17/ | Office | [facility] | Ayala Cuevas | Coronary artery | | 2020 | Visit | CARDIOLOGY [place] | [address] | disease involving | | | | [address] | [place] | [place] coronary | | | | [address] | [place] [address] | artery of [place] | | | | [place], [place] | [phone] | heart without angina | | | | [address] | | pectoris (Primary | | | | [phone] | | Dx); History of | | [...] stroke; | | | | | | Bilateral carotid | | | | | | artery stenosis; | | | | | | Moderate aortic | | | | | | valve insufficiency; | | | | | | Moderate to severe | | | | | | aortic stenosis; | | | | | | Type [...] | | | | | | placement; History | | | | | | of peptic ulcer | | | | | | disease | +--------+---------+ + + + Social [...] + + + | Blood Pressure | 104/50 | 12/18/2019 1:36 PM | | | | | PDT | | + + + + + | Pulse | 64 | 12/18/2019 1:36 PM | | | | | PDT | | + + + + + | Temperature | 36.3 C (97.3 F) | 12/18/2019 1:36 PM | | | | | PDT | | + + + + + | Respiratory Rate | - | - | | + + + + + | Oxygen Saturation | 98% | 12/18/2019 1:36 PM | | | | | PDT | | + + + + + | Inhaled Oxygen | - | - | | | Concentration | | | | + + + + + | Weight | 73.6 kg (162 lb 4.8 | 12/18/2019 1:36 PM | | | | oz) | PDT | | + + + + + | Height | 162.6 cm (5' 4") | 12/18/2019 1:36 PM | | | | | PDT | | + + + + + | Body Mass Index | 27.86 | 12/18/2019 1:36 PM | | | | | PDT [...] this encounter Patient Instructions Patient Instructions Ayala Cuevas, CORRIE - 12/18/2019 2:00 PM DEWAYNEI ordered you an E cho to be done at [facility] in 6 months I made no changes to medications Drink 48 oz of water daily, which is three 16 oz servings, and not too much more , as can drop your sodium See Dr. Blanchard back in June to establish care to follow up on Echo documented in this encounter Progress Notes Ayala Cuevas FNP - 12/18/2019 2:00 PM PDTFormatting of this note might be differe nt from the original. Date of visit: 12/19/2019 Primary Care Physician: Warren Harrington CHIEF COMPLAINT: Chief Complaint Patient presents with Follow-up Echo, Carotid done HISTORY OF PRESENT ILLNESS: Ms. Le Rollins is a 74-year-old woman who is here today to follow up on the results of her echo and carotid ultrasound. She is a patient of , when he performed her last PCI in 09/2018 , and previously seen by Dr. Pardo, now retired. When she lived in [place] , she was followed by cardiology team of paper rewinder , and cardiology PIPE BENDER Maral King in [place] but moved back to [place] in November 2018. Today, I reviewed all previous documentation available to me in electronic medical celeste rds and from external sources. She has a history of coronary artery disease with stents to the OM and RCA, right sided str elda with stent to right Carotid 09/2015,and likely 2nd stroke in 2016, and previous TIA's, carotid stenosis, mild to moderate aortic stenosis, hypertension, hyperlipidemia, type II d iabetes, sleep apnea with CPAP use nightly, PUD, fibromyalgia, and memory deficits. Her [id number] VASC score is 7( gender, age, CAD, DM, Stroke, HTN) She was referred for cardiac rehab at [facility] as she had moved back here shortly afte r that, which she completed in April 2019 Her current and previous testing and procedures are detailed below . I saw her last in July 2019. Her an updated echo and carotid ultrasound with a plan to draper ve her establish with Dr. Hernandez in October, which has been changed as Dr. Blanchard is now on maternit y leave. Since I saw her last she fell when lost balance, and fell and hit head and ended up with concussion on October 11, and ER notes reviewed. She reports has been working with PT to help with balance and leg strength, and no longer using walker. She does however sometimes get lightheaded, so does use a walker when she is ambulating outside, and the staff at her care facility have encouraged her to use it all the time. She has lots of GI complaints with diarrhea and vomiting and sometimes get epigastric pain , can give her a feeling of pressure up into her chest area, but denies any angina. . She reports she has palpitations and fast [...] had some bleeding peptic ulcers when in [place] and seen and treated by GI specialist, Dr. Liz there. She has had ongoing problems with a broken right foot and has been seeing orthopedic surge on Dr. Perez. She continues to wear her CPAP nightly, and has established care with sleep providers at [facility] sleep clinic. She exercises by ambulating in the hallways at her care facility,[facility] , and also with lifting light [...] pain and blood in stool. Hx PUD 2017? Genitourinary: Denies hematuria. Musculoskeletal:Hx knee replacement, arthralgia [...] Exercises with walking and tolerates. Lives in [facility]. Son roxann [place], oldest son of leukemia Outpatient Medications Prior [...] EXAM: Wt Readings from Last 3 Encounters: 12/18/19 73.6 kg (162 lb 4.8 oz) 08/17/19 70.5 kg (155 lb 8 oz) 09/26/18 74.3 kg (163 lb 12.8 oz) Temp Readings from Last 3 Encounters: 12/18/19 36.3 C (97.3 F) 09/26/18 36.9 C (98.4 F) (Temporal) 05/07/18 37.1 C (98.7 F) (Oral) BP Readings from Last 3 Encounters: 12/18/19 104/50 08/17/19 118/52 09/26/18 146/60 Pulse Readings from Last 3 Encounters: 12/18/19 64 08/17/19 59 09/26/18 58 GENERAL: Well developed, well nourished older woman , in no distress. Appears approximate ly stated age. HEENT: Normocephalic, atraumatic. EYES: PERRL, EOM normal. MOUTH: Mask in place throughout visit, due to COVID-19. Oral exam not performed NECK: soft bilateral carotid bruit,worse on right, [...] WBC 6.79 10/04/2018 WBC 6.2 05/07/2018 RBC 4.02 05/07/2018 HGB 13.3 10/04/2018 HGB 13.3 05/07/2018 HCT [...] for: TOTEPI CARDIAC PROCEDURES/IMAGING PCI/Angiogram: 10/04/2018: ( [facility]) : Successful stenting of the right coronary artery with d eployment of 3.0 x 16 mm Synergy drug-eluting stent. continue dual antiplatelet therapy as leander marcus as Elijaney for her history of paroxysmal atrial fibrillation Angiogram: 09/26/2018:([place])Severe single-vessel CAD with 90% stenosis at midportion [...] 4.5 L/min and index is 2.5 L/min/kg. Lef t ventriculography: The left ventricular size and function were normal. LVEF is calculated at 65%. There is no mitral valve regurgitation noted. Left main : medium caliber vessel t hat bifurcates into the left anterior descending artery and left circumflex artery. Left ma in artery has is free of disease. LAD: medium caliber vessel that wraps around the apex an d gives rise to 2 diagonal branches. The vessel has 50% stenosis proximally. It gives rise to 2 diagonal branches. Left circumflex : medium caliber vessel that is non dominant. Th e vessel has Stent placement at the midportion, stent is patent. It gives rise to 1 OM bra nches. RCA The right coronary artery is a medium caliber vessel that is dominant. The vess el has Stent placement at the midportion. There is 90% stenosis at the midportion right af ter the stent. It gives rise to a PDA and Posterolateral branches. Cath, 07/27/2015: left main OK, 40% mid-LAD, LCX OK, 90% OM2, 50% mid-RCA (FFR 0.86). OM2 s tented. Last nuclear medicine stress test. 07/13/2018:( [facility]) Presenting EKG negative. Nor mal Persantine perfusion imaging. Normal LV size, wall thickness, and motion. EF by gated SPECT 80%. Low, less than 1% CV risk. VASCULAR TESTING AND PROCEDURES Last Carotid US: 11/02/2019:RIGHT:Status post right CEA, right ICA to CCA ratio consistent wi th 50-60% stenosis on 2.1.LEFT: Stenosis on the left 1-15%: ICA/CCA ratio 1.9 with small am ount of atherosclerotic plaque noted within the bilateral external carotid arteries in the p roximal to mid left ICA. Both arteries demonstrate normal antegrade flow with low resistive waveforms Carotid ultrasound: 2016 ([facility]). Distal Right sided stent from distal CCA- mid ICA No plaque within the stent. 50-69 %stenosis on the right. Left ICA: 1-15% left i nternal carotid artery. Normal Antegrade flow to vertebral arteries Carotid US, 10/01/2015 ([facility]): ~70% stenosis right ICA, 16-49% stenosis left ICA.-tx' d with right carotid stenting, [facility] 10/18/2015 CT head without contrast: 05/07/2018: [...] above, without acute intracranial abnormality. CTA-neck, 10/04/2015 ([facility]) :IMPRESSION- Limited examination secondary to motion artifact. 60% distal common and 55% proximal right internal carotid artery stenosis. 20% distal left common carotid artery stenosis. 50% left vertebral artery stenosis secondary to cervical spondylosis. 50% right and 65% left subclavian artery stenosis. ECHO Last Echo: 11/02/2019: ([facility]). EF 75%, normal LV size with mild LVH, no regional wall motion abnormalities, grade 2 diastolic dysfunction. RV normal in size and function. Normal size atria, no intra-arterial shunting. Sinus of Valsalva through ascending aorta WNL, IVC WNL, no pericardial or pleural effusion. Aortic valve trileaflet, moderately calcified, moderate to severe aortic stenosis with ARISTIDES 1.01 cm peak/mean 61-37, peak velocity 3.89 m/s. Mild to moderate AI. Mild to moderate TR with velocity 2.88 m/s, estimated PA SP 36 mmHg, mild pulmonary hypertension. Pulmonic valve not well visualized. Echo: 07/15/2018 ([place]). EF 75%, LV normal in size and wall thickness, normal LAP, g rade 1 diastolic dysfunction. RV normal in size and function. Mildly dilated LA, normal RA . Intra-arterial septum normal. Aortic valve trileaflet, moderate calcification involving the left coronary cusp, noncoronary cusp and right coronary cusp, immobility of aortic valve involving the right coronary cusp, no vegetation, moderate valvular aortic stenosis peak/me an 45 / 25.19 mmHg. Valve area 1.22 cm. Mild to moderate AI. Mitral valve with myxomato us changes, mild MAC, no mitral stenosis, trace MR. Normal tricuspid valve, mild TR, no genia nosis. Pulmonic valve normal, trace DC. Great vessels are normal in size and appearance, n ormal size aortic root. IVC WNL. Borderline pulmonary hypertension, RVSP 35 mmHg. No tiffanie cardial or pleural effusion Echo: 03/10/2017: Sinus bradycardia. [...] rhythm. Previous septal infarct. Rate 73 bpm, DC 194 ms, QRS 70 ms, QTC 412 ms EK: Normal sinus rhythm, previous septal infarct. Rate 65 bpm, DC 180 ms, QR S 78 ms, QTC 416 ms EK08/17/2019: Sinus bradycardia, old septal infarct. Rate 55 bpm, DC 196 ms, QRS 70 ms, QTC 422 ms, tracing personally reviewed by [place] LABS Labs: 2017: Lipids: Cholesterol 133, triglycerides [...] 0.034, T4 1.9, negative gluten sensitivity panel. Labs: 09/28/2019: Thyroid: TSH 4.14, T4 1.29. CMP: Sodium 136, potassium 4.4, chloride 98, g lucose 118, BUN 12, creatinine 0.92, GFR 60, AST 33, ALT 29, alk phos 97, total bili 0.5, al bumin 3.7. Hemoglobin A1c 6.8 (148). Labs: 10/12/2019: CBC: RBC 7.9, RBC 3.93, hemoglobin 12.2, hematocrit 36.3, platelets 210, I NR 1.3. CMP: Glucose 80 BUN 17, creatinine 0.82, GFR 68, sodium 129, potassium 4.2, chlorid e 96, albumin 3.6, total bili 0.5, AST 27, ALT 23, alk phos 77. Amylase 93, lipase 23 CK 66 , alcohol <10 ASSESSMENT & PLAN: She was here today to follow-up on the results of her carotid ultrasound and echo which I had ordered when I saw her last. She has problems as detailed below. Her carotid ultrasound is detailed above and shows moderate right ICA stenosis, and mild l eft ICA stenosis. Her echo also performed in October is detailed above and shows stable EF at 75% mild LVH, gr eloy 2 diastolic dysfunction, moderate to severe aortic stenosis with increased peak and mean gradient from last year and decreased valve area though still greater than 1 cm and mild to moderate AI I reviewed the Echo and carotid US results in detail with her. I discussed with her that I would continue to do to her carotid stenosis with yearly ultrasounds, but would likely arie ntually need more intervention to her right ICA. I also discussed with her that her aortic stenosis had progressed since last year, and I wo uld repeat her echo in 6 months, and that she eventually would need it to be replaced, eithe r with open heart surgery, or percutaneously. I also discussed with her that the symptoms of progressive aortic stenosis were some short ness of breath, and lightheadedness, and if this these became more severe, to see me sooner . Her lab work performed when she was in the emergency room In September had shown some low s odium, which might of been secondary to diarrhea or vomiting, or HCTZ, but she also drinks a lot of water per her report, and I discussed with her to keep her water intake about 48 oun farhana daily I made no changes to cardiac medications today, and she should continue Atorvastatin 8 0 mg daily for hyperlipidemia, Imdur 30 mg for chest pain, and may increase in future, metop rolol XL 25 mg daily for heart function and rate control, lisinopril-hydrochlorothiazide 20- 25 mg daily for hypertension and pedal edema, prn sublingual nitro 0.4 mg,Eliquis 5 mg twice daily for stroke prevention, and Plavix 75 mg daily for ongoing carotid stenosis with carot id stents, as well as for RCA stent placed in September 2018. I have ordered her an updated Echo for follow-up on her aortic stenosis to be performed in 6 months at [facility] in April or May. She will establish care with Dr. Blanchard June 2020 as her primary paper rewinder, and to follow up on her Echo. 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 She was happy with this plan. 1. Coronary artery disease involving [place] coronary artery of [place] heart without angina pectoris 2. History of non-ST elevation myocardial infarction (NSTEMI) 3. Paroxysmal atrial fibrillation (HCC) 4. History of PTCA 5. Chronic ischemic heart disease 6. Dyslipidemia, goal LDL below 70 7. Essential hypertension with goal blood pressure less than 140/90 8. History of stroke 9. Bilateral carotid artery stenosis 10. Moderate aortic valve insufficiency 11. Moderate to severe aortic stenosis 12. Type 2 diabetes mellitus without complication, without long-term current use of insulin (HCC) 13. History of right common carotid artery stent placement 14. History of peptic ulcer disease Orders Placed This Encounter Procedures ECHO Complete The following portions of the [...] notes for continuity of care purp jeromy RIVERA [facility] Cardiology 12/19/2019 docume nted in this encounter Plan of Treatment + + +--------+ + + | Name | Type | Priori | Associated Diagnoses | Order Schedule | | | | ty | | | + + +--------+ + + | ECHO Complete | Echocardiog | Routin | Coronary artery | Expected: | | | aviva | e | disease involving | 06/19/2020, Expires: | | | | | [place] coronary | 12/17/2020 | | | | | artery of [place] | | | | | | heart without angina | | | | | | pectoris History | | | | | | of non-ST elevation | | | | | | myocardial | | | | | | infarction (NSTEMI) | | | | | | Paroxysmal atrial | | | | | | fibrillation (HCC) | | | | | | Essential | | | | | | hypertension with | | | | | | goal blood pressure | | | | | | less than 140/90 | | | | | | History of stroke | | | | | | Moderate aortic | | | | | | valve insufficiency | | | | | | Moderate to severe | | | | | | aortic stenosis | | + + +--------+ + + documented as of this encounter Visit Diagnoses + + | Diagnosis | + + | Coronary artery disease involving [place] coronary artery of [place] heart without | | angina pectoris - [...] | residual deficits | + + | Bilateral carotid artery stenosis Occlusion and stenosis of multiple and bilateral | | precerebral arteries without mention of cerebral infarction | + + | Moderate aortic valve insufficiency | + + | Moderate to severe aortic stenosis | + + | Type 2 diabetes mellitus without complication, without long-term current use of | | insulin (HCC) | + + | History of right common carotid artery stent placement | + + | History of peptic ulcer disease Personal history of peptic ulcer disease | + + documented in this encounter
--- OUTSIDE RECORDS SUMMARY | ~2020-02-03 | XMS | Encounter Summary ---
Demographics + + + | Address | [address] | | | [place] [address] | + + + | Home Phone [...] Author + + + | Author | [facility] | | | and [place] | + + + | Organization | [facility] | | [...] Team Providers + +------+ + | Care Cloth Coverer Name | Role | Phone | + [...] Description | +--------+---------+ + + + | 05/20/ | Office | [facility] | Aung Jimenez PA | NEHEMIAH on CPAP (Primary | | 2018 | Visit | SLEEP DISORDER [address] | [address] | Dx) | | | | [address] | [place] | | | | | [place] [address] | [address] | | | | | [phone] | | | +--------+---------+ + + + [...] + + + | Blood Pressure | 130/70 | 05/20/2017 11:06 AM | | | | | PST | | + + + + + | Pulse | 72 | 05/20/2017 11:06 AM | | | | | PST | | + + + + + | Temperature | - | - | | + + + + + | Respiratory Rate | 14 | 05/20/2017 11:06 AM | | | | | PST | | + + + + + | Oxygen Saturation | - | - | | + + + + + | Inhaled Oxygen | - | - | | | Concentration | | | | + + + + + | Weight | 69.1 kg (152 lb 5.4 | 05/20/2017 11:06 AM | | | | oz) | PST | | + + + + + | Height | - | - | | + + + + + | Body Mass Index | 25.74 | 03/29/2017 9:47 AM | | | | | PST | [...] encounter Progress Notes Aung Jimenez PA - 05/20/2017 11:00 AM PST Subjective: Patient ID: Le Rollins is a 72 y.o. female. HPI last office visit: 03/11/2017 date of polysomnography: 09/29/2016 AHI: 20 (98.7 in supine) RDI: 21.7 O2%: 84% with 2.3 minutes below 88% Machine type: ResMed AirSense 10 Mask type: nasal mask DME: [facility] in [place] pressure: 5-20 cm Median: 9.6 cm 95%: 11.9 cm maximum: 12.5 cm Nights using CPAP: 04/06 100/101 65/70 % of nights >4 hours: 83% 86% 54% average usage (all nights): 6:06 6:15 4:16 average usage (nights used): 6:06 6:19 4:36 AHI: 3.7 Le comes in for CPAP compliance. She did well with her CPAP usage from the beginning and had met her insurance usage standard. She recently changed her insurance to Medicare, [facility] requires her to meet this usage standard again. She has not been doing as well with her C PAP usage recently. This has been mostly because of increased stress. She is moving from [facility] to [place]. She thinks this will be a good move for her, but is has been a lit tle difficult getting through the process. She thinks she should be moved within the next w twenty-nine [place] or so. She understands the importance of treating her apnea and is committed to using her CPAP, es pecially since her CVA in 09/2015. She had another stroke in December,. She has not b een cleared to drive and getting transportation has been difficult. She says this will be b dotty when she lives in [place]. I have discussed the download in detail. This shows that her sleep apnea is controlled, wi th an AHI of 3.7. It also shows that her leaks are controlled. She met her insurance CPAP usage standard, but has to meet it again because of her change in insurance. Review of Systems Objective: BP 130/70 | Pulse 72 | Resp 14 | Wt 69.1 kg (152 lb 5.4 oz) | BMI 25.35 kg/m Physical Exam Assessment: Problem #1: OBSTRUCTIVE SLEEP APNEA ([id number]-Z77.33) This is controlled with CPAP. She is doing well with her CPAP usage. She has changed her insurance and has to meet the CPAP usage standard again. Plan: 1. She is to continue with CPAP indefinitely. 2. We have faxed a prescription to [facility] in [place] for a ResMed AirSense 10 with a pr essure range of 5-20 cm. I will follow up again in 10 months, sooner prn. Fifteen minutes were spent [id number], with the majority of time spent in counseling. Aung Jimenez PA-C cc: Wilson Lin MD documented in this enco unter Plan of Treatment Not on filedocumented as of this encounter Visit Diagnoses + + | Diagnosis | + + | NEHEMIAH on CPAP - Primary Obstructive sleep apnea (adult) (pediatric) | + + documented in this encounter"
--- OUTSIDE RECORDS SUMMARY | ~2020-02-03 | XMS | Encounter Summary ---
Demographics + + + | Address | [address] | | | [place] [address] | + + + | Home Phone [...] Author + + + | Author | [facility] | | | and [place] | + + + | Organization | [facility] | | | [...] Team Providers + +------+ + | Care Scallop Binder Name | Role | Phone | + +------+ + PCP | Unavailable | + +------+ + Reason for Visit + +--------+ + | Reason | Onset | Comments | | | Date | | + +--------+ + | Medication Refill | 05/11/ | | | | 2019 | | + +--------+ + Encounter Details +--------+--------+ + + + | Date | Type | Department | Care Team | Description | +--------+--------+ + + + | 05/11/ | Refill | [facility] | Alicia Gonzáles, | Medication Refill | | 2018 | | CARDIOLOGY [address] | MD [address] [place] | | | | | [place], | [place], | | | | | [place] [address] | [place] [address] | | | | | [phone] | [phone] | | | | | | | [...] this encounter Miscellaneous Notes Telephone Encounter - Oma Magallon RN - 05/11/2018 3:02 PM [facility] [place] [facility], needed refills on medication to start Bubble packing for the patient. prescript ion documented in t his encounter Plan of Treatment Not on filedocumented as of this encounter Visit Diagnoses Not on filedocumented in this encounter"
--- OUTSIDE RECORDS SUMMARY | ~2020-02-03 | XMS | Encounter Summary ---
Demographics + + + | Address | [address] | | | [place] [address] | + + + | Home Phone | | + + + | Preferred Language | Unknown | + + + | Marital Status | Single | + + + | Baptism Affiliation | 1013 | + + + | Race | White | + + + | Ethnic Group | Not or | + + + Author + + + | Author | [facility] | | | and [place] | + + + | Organization | [facility] | | | [...] Team Providers + +------+ + | Care Digital Strategist Senior Manager Name | Role | Phone | + +------+ + | Wilson Lin MD | PCP | | + +------+ + Encounter Details +--------+ + + + + | Date | Type | Department | Care Team | Description | +--------+ + + + + | 06/22/ | Documentati | [facility] | Aung Jimenez PA | | | 2018 | on | SLEEP DISORDER [address] | [address] | | | | | [address] [place] | [place], [place] | | | | | [place] [address] | [address] | | | | | [phone] | | | +--------+ + + + [...] + documented as of this encounter Progress Aung Cardenas PA - 06/22/2017 3:55 PM Sarah was last seen in our office on 05/20/2017. She did not cancel or show up for her appointment on 06/21/2017. This was her first no-show. She was struggling with her CPAP compliance at her last appointment. 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 We will attempt to reschedule this appointment. Aung Jimenez PA-C documented in this enc ounter Plan of Treatment Not on filedocumented as of this encounter Visit Diagnoses Not on filedocumented in this encounter"
--- OUTSIDE RECORDS SUMMARY | ~2020-02-03 | XMS | Encounter Summary ---
Demographics + + + | Address | [address] | | | [place] [address] | + + + | Home Phone [...] Team Providers + +------+ + | Care Panel Gluer Name | Role | Phone | + +------+ + PCP | Unavailable | + +------+ + Reason for Visit + + + | Reason | Comments | + + + | Foot Pain | | + + + Encounter Details +--------+ + + + + | Date | Type | Department | Care Team | Description | +--------+ + + + + | 11/03/ | Emergency | [facility] | Dipak Hassan, | Acute foot pain, | | 2018 | | [facility] | MD [address] | right (Primary Dx); | | | | CENTER [address] | [place] | Closed displaced | | | | [place], [place] | [address] | fracture of fifth | | | | [address] | | metatarsal bone of | | | | [phone] | | right foot, initial | | | | | | encounter; | | | | | | Cellulitis of right | | | | | | foot; Elevated blood | | | | | | pressure reading | +--------+ + + + + Social [...] + + + | Blood Pressure | 146/50 | 11/03/2017 2:46 PM | | | | | PDT | | + + + + + | Pulse | 59 | 11/03/2017 2:46 PM | | | | | PDT | | + + + + + | Temperature | 37.1 C (98.7 F) | 11/03/2017 2:46 PM | | | | | PDT | | + + + + + | Respiratory Rate | 16 | 11/03/2017 2:46 PM | | | | | PDT | | + + + + + | Oxygen Saturation | 100% | 11/03/2017 2:46 PM | | | | | PDT | | + + + + + | Inhaled Oxygen | - | - | | | Concentration | | | | + + + + + | Weight | - | - | | + + + + + | Height | - | - | | + + + + + | Body Mass Index | - | - | | + [...] as of this encounter Discharge Instructions Instructions Dipak Hassan MD - 11/03/2017I have recommended a set of crutches but bas ed on her discussion you feel more stable and comfortable using your mother's walker. Please continue to use a walker but do not weight-bear or place weight on your right foot until di rected otherwise by the netting weaver or your primary care provider. Please return for any new concerns. AttachmentsThe following attachments cannot be sent through Care Everywhere.Fifth Metatarsa l Fracture, Understanding (Mauritian)Bones, How They Heal (Mauritian)R.I.C.E. (Mauritian)documente d in this encounter Medications at Time of [...] + + + +---------+ + + | doxycycline | Take 1 tablet by | 20 | 0 | 11/04/19 | | | (VIBRAMYCIN) 100 mg | mouth 2 times daily | tablet | | 18 | 8 | | tablet | for 10 days. | | | | | + [...] documented as of this encounter ED Notes Dipak Hassan MD - 11/03/2017 2:49 PM PDTFormatting of this note might be different f rom the original. [facility] Department Encounter Note [address] [place] [address] PCP:Ole Madden DO [phone] CHIEF COMPLAINT: Chief Complaint Patient presents with Foot Pain ED Room: ED15/ED15 [facility] Le Rollins is a 72 y.o. female who presents to the Emergency Department noticed several d ays ago that she started having some pain in right foot on the top part underneath the great toe and second toe and along the top part of her foot. She also noticed some severe lancina ting pain on the right foot edge just in front of her right heel she denies any recent falls or injuries. She denies any recent changes in medications other than the topical ointments that she has been using. She reports using some frankincense for neuropathy that she has been using those drops for a long period of time. She reports using some of the topical pain medication and [id number] Katerine brand coconut lotion on her foot for her pain. The pain on the top part and on the inside of her foot where there is the rash and redness reminds her of an episode she had prior of cellulitis. The right foot edge and the top of th e foot is very painful and she describes it almost as bone pain. It is significantly increas e in pain with ambulation. PAST MEDICAL & SURGICAL HISTORY Past Medical History: Diagnosis Date Asthma CVA (cerebral vascular accident) (HCC) 09/2015 DDD (degenerative disc disease), cervical 02/08/2012 Diabetes type 2, controlled ([facility]) Off all medications since surgery Fibromyalgia Hypertension Mixed sleep apnea Murmur, cardiac Myocardial infarction (HCC) 07/2015 Numbness and tingling in right hand 02/08/2012 Obesity NEHEMIAH (obstructive sleep apnea) Stroke ([facility]) Asymptomatic - noted on CT scan in distant past Past Surgical History: Procedure Laterality Date ABDOMEN SURGERY APPENDECTOMY 1958 CARDIAC CATHERIZATION N/A 07/27/2015 Procedure: CV DIAGNOSTIC CARDIAC CATH; Surgeon: Иван Kaur MD; Location: [facility] CARDIO VASCULAR LAB CHOLECYSTECTOMY 1988 COLONOSCOPY fiberoptic coronary artery surgery GASTRIC BYPASS SURGERY 2011 HYSTERECTOMY, TOTAL ABDOMINAL 1973 left breast lumpectomy right carotid stent 10/09 right knee arthroscopy 1989 THYROIDECTOMY 2005 THYROIDECTOMY, PARTIAL 1985 TONSILLECTOMY AND ADENOIDECTOMY 1950 TOTAL KNEE ARTHROPLASTY Right 07/16/2015 Procedure: Right Total Knee Arthroplasty; Surgeon: Jordin Fernandez MD; Location: [facility] MAIN OR UPPER GASTROINTESTINAL ENDOSCOPY N/A 07/12/2017 Procedure: EGD; Surgeon: Venkatesh Liz MD; Location: [facility] MEDICAL PROCEDURE UNIT UVULOPALATOPHARYGOPLASTY 1987 CURRENT MEDICATIONS Discharge Medication List as of 11/03/2017 15:45 CONTINUE these medications which have NOT CHANGED Details acetaminophen (TYLENOL) 325 mg tablet Take 2 tablets by mouth every 6 hours as needed for P ain.Disp-100 tablet, OTC apixaban (ELIQUIS) 5 mg tablet Take 1 tablet by mouth 2 times daily.Disp-60 tablet, R-5, No rmalDiscontinue Plavix aspirin 81 MG tablet Take 2 tablets by mouth Daily.Disp-56 tablet, R-0, OTCStart one week f rom now atorvaSTATin (LIPITOR) 80 MG tablet Take 80 mg by mouth nightly.Historical Med busPIRone (BUSPAR) 5 mg tablet Take 5 mg by mouth 2 times daily.Historical Med calcium-vitamin D (OSCAL) 500 mg-200 units per tablet Take 1 tablet by mouth Daily.Historic al Med cyanocobalamin (VITAMIN B-12) 1000 MCG tablet Take 1,000 mcg by mouth Daily.Historical Med diclofenac (VOLTAREN) 1% GEL Apply 1 g topically 2 times daily.Historical Med !! DULoxetine (CYMBALTA) [address] capsule Take 20 mg by mouth Daily. With 60 mg capsule for Total dose of 80mgHistorical Med !! DULoxetine (CYMBALTA) [address] capsule Take 60 mg by mouth Daily. With 20mg capsule for total dose of 80 mgHistorical Med EPINEPHrine auto-injector 0.3 mg/0.3 mL injection Inject 0.3 mLs into the muscle as needed for Anaphylaxis.Disp-1 each, R-1, Print Homeopathic Products (LEG CRAMP RELIEF) TABS Take 1 tablet by mouth.Historical Med isosorbide mononitrate (IMDUR) 30 mg ER tablet Take 1 tablet by mouth Daily.Disp-30 tablet, R-0, Print levothyroxine (SYNTHROID) 175 MCG tablet Take 175 mcg by mouth every morning (before breakf ast).Historical Med lisinopril-hydrochlorothiazide (PRINZIDE,ZESTORETIC) 20-25 MG per tablet Take 1 tablet by m outh Daily.Historical Med Magnesium 500 MG tablet Take 500 mg by mouth Daily.Historical Med meclizine (ANTIVERT) 25 mg tablet Take 1 tablet by mouth 3 times daily as needed.Disp-20 ta blet, R-0, Print metFORMIN (GLUCOPHAGE-XR) 500 mg 24 hr tablet Take 500 mg by mouth Daily (with dinner).Hist orical Med Multiple Vitamins-Minerals (MULTIVITAMIN PO) Take 1 tablet by mouth Daily.Historical Med nitroglycerin (NITROSTAT) 0.[address] 1 tablet under the tongue every 5 minutes as needed for Chest pain.Disp-25 tablet, R-0, Print pantoprazole (PROTONIX) 40 mg tablet Take 1 tablet by mouth 2 times daily (before meals).Di sp-84 tablet, R-1, Print UNABLE TO FIND Med Name: Resmed AirSense 10 autoset CPAP: 5-20cm while sleeping.Historical Med !! - Potential duplicate medications found. Please discuss with provider. ALLERGIES Allergies Allergen Reactions Aripiprazole Bee Venom Clonidine Derivatives Insulin Glargine Insulin Lispro Shellfish-Derived Products Statins Patient could not remember which statin caused her problems. 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 A 10 system review was otherwise negative. PHYSICAL EXAM VITAL SIGNS: (first vital signs):Temp: 37.1 C (98.7 F) Pulse: 59 Resp: 16 SpO2: 100 % B P: 146/50 There is no height or weight on file to calculate BMI. General: Alert, no active distress and not requiring any emergent interventions Eyes: Normal inspection, pupils equal and round, non-icteric sclera ENT: Ears normal Nose normal without discharge or drainage Pharynx normal with no exudates or discharge Neck: Normal inspection with no lymphadenopathy Back: Normal inspection Without tenderness or deformity Skin: Color normal Warm and dry Extremities: LEVINE with equal pulses in the upper and lower extremities bilaterally Physical Exam Musculoskeletal: Feet: Neuro: No gross motor/sensory deficit GCS 15 No cerebellar deficits Alert and oriented to person, place, time and situation. Resident area pain with palpation Green highlighted areas of the new rash which is probably on the medial side of her right foot and wiggle both over the top. And that is supports pool t reminds her of her previous cellulitis. The base of the fifth met is the most tender area on her foot with some associated edema. EKG LABS Results for orders placed or performed in visit on 10/08/17 ECG 12 lead Result Value Ref Range VENTRICULAR RATE EKG 59 BPM ATRIAL RATE 59 BPM P-R INTERVAL 182 ms QRS DURATION 82 ms Q-T INTERVAL 438 ms Q-T INTERVAL (CORRECTED) 433 ms P WAVE AXIS 69 degrees QRS AXIS 58 degrees T AXIS 59 degrees INTERPRETATION TEXT Sinus bradycardia Otherwise normal ECG When compared with ECG of 06-AUG-2017 09:50, No significant change was found Confirmed by MARIA TERESA MOULTON MD ([id number]) on 10/08/2017 3:49:50 PM IMAGING STUIDES (X-Rays interpreted by ED Physician) No results found. Recent Results (from the past 360 hour(s)) XR Foot Right 3 + Vw Narrative XR FOOT RIGHT 3 + VW 11/03/2017 3:09 PM HISTORY: right dorsal foot pain mid longitudinal arch. COMPARISON: None. FINDINGS: Age-indeterminate transverse fracture involving the base of the fifth metatarsal with questionable stranding soft tissue swelling, possibly representing an acute avulsion fracture in the appropriate clinical setting. No other evidence of acute fracture or traumatic malalignment. Bipartite first medial hallux sesamoid. Fusion of the fifth DIP joint. Plantar calcaneal enthesophyte is present. IMPRESSION - Age-indeterminate transverse avulsion fracture involving the base of the fifth metatarsal with questionable surrounding soft tissue swelling. Dictated and Signed by: Jace Marie MD Electronically signed: 11/03/2017 3:11 PM ED COURSE & MEDICAL DECISION MAKING Pertinent Labs & Imaging studies were reviewed along with EMS notes and [facility] record s if applicable. (See chart for details) Medications and Allergy list reviewed. Nurses note and old records were reviewed 14:49The patient was seen and examined, pathologic fracture, stress fracture, cellulitis, d ependent edema, plantar fasciitis, ligamentous strain sprain. Subluxation dislocation, Lisfr anc fracture. I will order and reevaluate. 15:28 will discharge shortly with information about injury and recommendations for outpatie nt management non weight bearing she has walker she will prefer to use vice a set of crutche s. I have discussed my clinical impression and treatment plan with the pt. We have specificall y discussed the signs and symptoms that would constitute the need for an immediate return to the ED, the importance of continued outpatient f/u and the importance of compliance with th e d/c instructions. I have answered any questions that the pt has to the best of my ability. Based upon the pt s history, physical exam, ED course, and diagnostic studies, I feel pool t there is no current emergent medical condition that warrants admission, transfer, or furth er ED treatment at this time. Last Set of Vital Signs: Temp: 37.1 C (98.7 F) Pulse: 59 Resp: 16 SpO2: 100 % BP: 146/5 0 Medications - No data to display Vitals: 11/03/17 1446 BP: 146/50 Pulse: 59 Resp: 16 Temp: 37.1 C (98.7 F) TempSrc: Oral SpO2: 100% FINAL IMPRESSION ICD-10-CM ICD-9-CM 1. Acute foot pain, right M79.671 729.5 2. Closed displaced fracture of fifth metatarsal bone of right foot, initial encounterAcute S92.351A 825.25 3. Cellulitis of right foot L03.115 682.7 4. Elevated blood pressure reading R03.0 796.2 Follow-up Information Ole Madden DO. Specialty: Family Medicine Why: Please call today to arrange follow-up in the next 5-7 days for your ED visit and you r elevated blood pressure reading Contact information: [address] [facility] [address] Anderson Hurtado DPM. Specialty: Podiatry Why: Please call today to arrange follow-up in the next 7-10 days Contact information: [address] [facility] [address] [facility] [address] Discharge Medication List as of 11/03/2017 15:45 START taking these medications Details traMADol (ULTRAM) 50 mg tablet Take 1 tablet by mouth every 8 hours as needed.Disp-15 table t, R-0, Print Dipak Hassan. This document has been prepared with a voice recognition system. The possibility of "sound alike" log chain worker errors, addition and/or deletions may occur. If there is any question vinicius pisano contact the author of the document. Dipak Hassan MD 11/07/17 1223 Dipak Hassan MD 11/07/17 1223 Susana Woodard RN - 11/03/2017 2:43 PM PDTPt reports right leg pain and pain on top of right foot toda y. She states her foot is also red and "rashy" today. documented in this encounter Plan of Treatment Not on filedocumented as of this encounter Procedures + +--------+ + + + | Procedure Name | Priori | Date/Time | Associated Diagnosis | Comments | | | ty | | | | + +--------+ + + + | XR FOOT RIGHT 3 + VW | LOR[facility] | 11/03/2017 | | Results for this | | | | 3:09 PM | | procedure are in the | | | | PDT | | results section. | + +--------+ + + + documented in this encounter Results XR Foot Right 3 + Vw (11/03/2017 3:09 PM PDT) + + | Specimen | + + | | + + + + + | Narrative | Performed At | + + + | XR FOOT RIGHT 3 + VW 11/03/2017 3:09 PM HISTORY: right dorsal | [facility] | | foot pain mid longitudinal arch. COMPARISON: None. FINDINGS: | | | Age-indeterminate transverse fracture involving the base of the fifth | | | metatarsal with questionable stranding soft tissue swelling, possibly | | | representing an acute avulsion fracture in the appropriate clinical | | | setting. No other evidence of acute fracture or traumatic | | | malalignment. Bipartite first medial hallux sesamoid. Fusion of the | | | fifth DIP joint. Plantar calcaneal enthesophyte is present. | | | IMPRESSION - Age-indeterminate transverse avulsion fracture involving | | | the base of the fifth metatarsal with questionable surrounding soft | | | tissue swelling. Dictated and Signed by: Jace Marie MD | | | Electronically signed: 11/03/2017 3:11 PM | | + + + + + | Procedure Note | + + | Maurice, Rad Results In - 11/03/2017 3:14 PM PDT XR FOOT RIGHT 3 + VW 11/03/2017 3:09 PM | | | | HISTORY: right dorsal foot pain mid longitudinal arch. | | | | COMPARISON: None. | | | | FINDINGS: | | Age-indeterminate transverse fracture involving the base of the fifth metatarsal | | with questionable stranding soft tissue swelling, possibly representing an acute | | avulsion fracture in the appropriate clinical setting. No other evidence of | | acute fracture or traumatic malalignment. Bipartite first medial hallux | | sesamoid. Fusion of the fifth DIP joint. Plantar calcaneal enthesophyte is | | present. | | | | IMPRESSION - | | Age-indeterminate transverse avulsion fracture involving the base of the fifth | | metatarsal with questionable surrounding soft tissue swelling. | | | | Dictated and Signed by: Jace Marie MD | | Electronically signed: 11/03/2017 3:11 PM | + + + +---------+ + + | Performing | Address | City/State/Zipcode | Phone Number | | Organization | | | | + +---------+ + + | [facility] | | | | + +---------+ + + documented in this encounter Visit Diagnoses + + | Diagnosis | + + | Acute foot pain, right - Primary | + + | Closed displaced fracture of fifth metatarsal bone of right foot, initial encounter | + + | Cellulitis of right foot Cellulitis and abscess of foot, except toes | + + | Elevated blood pressure reading Elevated blood pressure reading without diagnosis of | | hypertension | + + documented in this encounter
--- OUTSIDE RECORDS SUMMARY | ~2020-02-03 | XMS | Encounter Summary ---
Demographics + + + | Address | [address] | | | [place] [address] | + + + | Home Phone | | + + + | Preferred Language | Unknown | + + + | Marital Status | Single | + + + | Mormon Affiliation | 1013 | + + + [...] Team Providers + +------+ + | Care Dielectric Embossing Machine Operator Name | Role | Phone | + +------+ + | Wilson Lin MD | PCP | | + +------+ + Encounter Details +--------+ + + + + | Date | Type | Department | Care Team | Description | +--------+ + + + + | 11/03/ | Hospital | [facility] | Conversion | Diagnosis unknown | | 2016 | Encounter | CONVERSION [address] | Transaction, | | | | | [address] | Provider Unknown | | | | | [place], [place] | [phone] | | | | | [address] | | | | | | [phone] | | | +--------+ + + + [...] | + +--------+ + + + | VAS CAROTID DUPLEX | Routin | 10/01/2015 | | Results for this | | BILATERAL | e | 2:28 PM | | procedure are in the | | | | PDT | | results section. | + +--------+ + + + documented in this encounter Results VAS Carotid Duplex Bilateral (10/01/2015 2:28 PM PDT) + + | Specimen | + + | | + + + + + | Narrative | Performed At | + + + | This is a non-reportable procedure without a radiologist report and | | | is used for image storage only | | + + + + + | Procedure Note | + + | Steven Richards Conversion - 12/08/2018 5:40 PM PDT This is a non-reportable procedure | | without a radiologist report and isused for image storage only | + + documented in this encounter Visit Diagnoses + + | Diagnosis | + + | Diagnosis unknown Other unknown and unspecified cause of morbidity or mortality | + + documented in this encounter"
--- OUTSIDE RECORDS SUMMARY | ~2020-02-03 | XMS | Encounter Summary ---
Demographics + + + | Address | [address] | | | [place] [address] | + + + | Home Phone [...] + + + | Author | [facility] | | | and [place] | + + + | Organization | [facility] | | | and [place] | + + + | Address | Unknown | + + + | Phone | Unavailable | + + + Support + + +---------+ + | Name | Relationship | Address | Phone | + + +---------+ + Kirstie Rollins | ECON | Unknown | | + + +---------+ + | Maria Elena Rollins | ECON | Unknown | | + + +---------+ + Care Team Providers + +------+ + | Care Monogram Technician Name | Role | Phone | [...] Description | +--------+---------+ + + + | 07/12/ | Surgery | [facility] | Venkatesh Liz MD | EGD | | 2018 | | MED CTR [facility] INTRA OP | [address] | | | | | [address] | [address], | | | | | [place] | [place] [address] | | | | | [address] | [phone] | | | | | [phone] | | | +--------+---------+ + + + [...] + + + | Blood Pressure | 163/68 | 07/12/2017 11:53 AM | | | | | PDT | | + + + + + | Pulse | 57 | 07/12/2017 11:53 AM | | | | | PDT | | + + + + + | Temperature | 36.3 C (97.3 F) | 07/12/2017 11:53 AM | | | | | PDT | | + + + + + | Respiratory Rate | 13 | 07/12/2017 11:53 AM | | | | | PDT | | + + + + + | Oxygen Saturation | 98% | 07/12/2017 11:53 AM | | | [...] moved to the and currently staying in [facility]. She has no lateralizing signs or symptoms. [...] she will be Discharged back to her [facility] She was told to hold the [...] as needed for Chest pain. aka: NITROSTAT UNABLE TO FIND Med Name: Resmed AirSense 10 autoset CPAP: 5-20cm while sleeping. VOLTAREN 1% Gel Generic drug: diclofenac Apply 1 g topically 2 times daily. PHYSICAL ACTIVITY: As tolerated and resume previous activity DIET: Resume previous and eat small quantities DISPOSITION: To [facility] home FOLLOW UP CARE: Follow up with [...] directions X Pharmacy list names: [facility] [place] [facility] [place] [employer] TECHNICIAN (Prescription Monitoring Program) X [employer] insurance reported [...] rx Patient states she just moved to [place] last week and established care with Dr. Rodney kim. Previously lived in [place]. 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 Taking Historical MD Ángela busPIRone (BUSPAR) 5 mg tablet Take 5 mg by mouth 2 times daily. Taking Historical Provid erMD calcium-vitamin D (OSCAL) 500 mg-200 units per tablet Take 1 tablet by mouth 2 times daily . Taking Historical MD Ángela clopidogrel (PLAVIX) 75 mg tablet Take 1 tablet by mouth Daily. Taking 100 tablet Aidan hazel MD cyanocobalamin (VITAMIN B-12) 1000 MCG tablet Take 1,000 mcg by mouth Daily. Taking Histo rical MD Ángela diclofenac (VOLTAREN) 1% GEL Apply 1 g topically 2 times daily. Taking Historical Kennedy rMD DULoxetine (CYMBALTA) [address] capsule Take 20 mg by mouth Daily. With 60 mg capsule for T otal dose of 80mg Taking Historical MD Ángela DULoxetine (CYMBALTA) [address] capsule Take 60 mg by mouth Daily. With 20mg capsule for to dustin dose of 80 mg Taking Historical MD Ángela EPINEPHrine (EPIPEN) 0.3 mg/0.3 mL injection Inject 0.3 mg into the muscle as needed for A naphylaxis. Historical ProviderMD isosorbide mononitrate (IMDUR) 30 mg ER tablet Take 1 tablet by mouth Daily. Taking 30 tab let John Mark MD levothyroxine (SYNTHROID) 175 MCG tablet Take 175 mcg by mouth every morning (before break fast). Taking Historical Provider, MD lisinopril-hydrochlorothiazide (PRINZIDE,ZESTORETIC) 20-25 MG per tablet Take 1 tablet by mouth Daily. Taking Girma Motta MD Magnesium 500 MG tablet Take 500 mg by mouth Daily. Taking Girma Motta MD metFORMIN (GLUCOPHAGE-XR) 500 mg 24 hr tablet Take 500 mg by mouth Daily (with dinner). Todd Motta MD Multiple Vitamins-Minerals (MULTIVITAMIN PO) Take 1 tablet by mouth Daily. Taking Pablo Motta MD nitroglycerin (NITROSTAT) 0.[address] 1 tablet under the tongue every 5 minutes as needed for Chest pain. Taking 25 tablet Aidan Hernandez MD UNABLE TO FIND Med Name: Resmed AirSense 10 autoset CPAP: 5-20cm while sleeping. Taking H istorical MD Ángela Medication review performed and electronically signed by Joanne Rollins, Leather Belt Maker 2017 12:44 Reviewed by Brigette Carrero PharmSrinath 07/12/2017 15:08 documented in thi s [...] signed by: Venkatesh Liz MD, 07/12/2017 11:35 [facility] Electronically signed by Venkatesh Liz MD at 06/24 11:35 AM Venkatesh Quigley MD - 07/11/2017 6:15 PM PDT GASTROENTEROLOGY CONSULT NOTE [facility] Le Rollins Date of Admission: 07/11/2017 Hospital [...] mcv 72 ( hemoglobin 7.9 on 07/01/17 [facility]) Patient was started on IV protonix [...] 100% 100% 98% Weight: Height: I's&O's: Date 07/10/17700 - 07/11/17 07(Not Admitted) 07/11/17700 - 07/12/17 07 Shift [id number] [id number] 24 Hour Total 1123-4158 8714-4113 24 Hour Total I N T A [...] 07/11/2017 4:07 PM Venkatesh Liz MD 07/11/2017 ewgaby, Anuradha Machuca MD - 07/11/2017 4:40 PM PDTFormatting of this note might be different from the origi nal. [place] HOSPITALIST HISTORY & PHYSICAL Patient: Le Rollins : 1945: Age: 72 y.o. MedRec: [id number] Admission date: 07/11/2017 Hospital day # : [...] Plavix She tells me: Upper endoscopy in [facility] 2010 before the gastric Bypass Procedure (R ous en Y) that she had there in 2011 (all was fine that she knows of) A year later, she draper d a "triple hernia" (she points to her upper abd) that was repaired there also. (Her memory had the dates wrong, records in soft chart) She had colonoscopy about a year ago in [place] normal by her recall except for diverticu lae. Then ASA and Plavix for CAD 2 years ago EPIGASTRIC PAIN for about a month at least. Black sticky stools 2 weeks ago Moved from [place] to [facility] 3-4 weeks ago Loves it there. Also [...] disease), cervical 02/08/2012 Diabetes type 2, controlled ([facility]) Off all medications since surgery Fibromyalgia Hypertension Mixed sleep apnea Murmur, cardiac Myocardial infarction 07/2015 Numbness and tingling in right hand 02/08/2012 Obesity NEHEMIAH (obstructive sleep apnea) Stroke (HCC) Asymptomatic - noted on CT scan in distant past Past Surgical History: Procedure Laterality Date APPENDECTOMY 1958 CARDIAC CATHERIZATION N/A 07/27/2015 Procedure: CV DIAGNOSTIC CARDIAC CATH; Surgeon: Иван Kaur MD; [facility] CHOLECYSTECTOMY 1988 GASTRIC BYPASS SURGERY 2011 HYSTERECTOMY, TOTAL ABDOMINAL 1973 right carotid stent 10/09 right knee arthroscopy 1989 THYROIDECTOMY 2004 THYROIDECTOMY, PARTIAL 1985 TONSILLECTOMY AND ADENOIDECTOMY 1950 TOTAL KNEE ARTHROPLASTY Right 07/16/2015 Procedure: Right Total Knee Arthroplasty; Surgeon: Jordin Fernandez MD; Location: [facility] MA[facility] OR UVULOPALATOPHARYGOPLASTY 1987 FAMILY HISTORY: family history includes Diabetes in her brother; Heart disease in her brother and father; O ther (see comment) in her son. A son of Leukemia SOCIAL HISTORY: reports that she has never smoked. She has never used smokeless tobacco. She reports that she drinks alcohol. She reports that she does not use drugs. Moved from [place] to [facility] 3-4 weeks ago Loves it there. Son is a Pancho ceman in [place]. REVIEW OF SYSTEMS: A complete 10 system [...] Take 80 mg by mouth nightly. Historical ProviderMD biotin 5 mg tablet Take 5 mg by mouth Daily. Historical ProviderMD busPIRone (BUSPAR) 5 mg tablet Take 5 mg by mouth 2 times daily. Historical ProviderMD calcium citrate-vitamin D (CALCIUM + D) 315 mg-200 units per tablet Take 1 tablet by mouth 2 times daily. Historical ProviderMD Cholecalciferol (VITAMIN D3) 08364 units TABS Take 50,000 Units by mouth Once a week. Hi storical ProviderMD clopidogrel (PLAVIX) 75 mg tablet [...] 1 tablet by mouth Daily. 30 tablet Aa honey Mark MD levothyroxine (SYNTHROID, LEVOTHROID) 150 mcg [...] Vitamins-Minerals (MULTIVITAMIN PO) Take by mouth. Historical ProviderMD nitroglycerin (NITROSTAT) 0.[address] 1 tablet under the tongue every 5 minutes as needed for Chest pain. 25 tablet Aidan Hernandez MD UNABLE TO FIND Med Name: Resmed AirSense 10 autoset CPAP: 5-20cm while sleeping. 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 [place] Wants to see Cardiol for F/U in [place] Last chest pain episode about 2 months [...] vitamin deficiency and other complications Records from [facility] soft chart Her usual vitamins are on hold Nut consult requested # Sleep apnea and yes, she uses her device but needs to get it here # HTN Not evident yet and her Lisinopril is on hold # This is NOT SEPSIS UGI bleed explains her signs and symptoms more completely Code Status Full code No documents Medical Decision Maker patient DVT Prophylaxis SCD's [facility] Documentation I expect this patient will be hospitalized for greater than 2-midnights and expect the post -hospital plan to be discharge to home or to an adult foster home. Electronically signed by: Kadi Lobo MD 07/11/2017 16:46 [facility] This Assessment required over 75 minutes of review of patient's symptoms, exam, labs, image s, and discussion with the care team and other physicians [place] [id number]. documented in this encounter Consult Notes Venkatesh Liz MD - 07/11/2017 6:15 PM PDT [facility] Date of Admission: 07/11/2017 [...] mcv 72 ( hemoglobin 7.9 on 07/01/17 [facility]) Patient was started on IV protonix [...] Admitted) 07/11/17 07 - 07/12/17 0700 Shift [id number] 24 Hour Total 2809-0195 7968-1780 24 Hour Total I N T A [...] days ago. Labs are not accessable via [facility]. Previous Medications ACETAMINOPHEN (TYLENOL) 325 MG TABLET [...] uth 2 times daily. CHOLECALCIFEROL (VITAMIN D3) 41262 UNITS TABS Take 50,000 Units by mouth [...] tablet under the tongue every 5 thaddeus sloedad as needed for Chest pain. UNABLE TO FIND Med Name: Resmed AirSense 10 autoset CPAP: 5-20cm while sleeping. She is allergic to aripiprazole; bee venom; clonidine derivatives; insulin glargine; insuli n lispro; pioglitazone hydrochloride; shellfish-derived products; and statins.. Past Medical History: Diagnosis Date Asthma CVA (cerebral vascular accident) (HCC) 09/2015 DDD (degenerative disc disease), cervical 02/08/2012 Diabetes type 2, controlled ([facility]) Off all medications since surgery Fibromyalgia Hypertension Mixed sleep apnea Murmur, cardiac Myocardial infarction 07/2015 Numbness and tingling in right hand 02/08/2012 Obesity NEHEMIAH (obstructive sleep apnea) Stroke ([facility]) Asymptomatic - noted on CT scan in distant past Past Surgical History: Procedure Laterality Date APPENDECTOMY 1958 CARDIAC CATHERIZATION N/A 07/27/2015 Procedure: CV DIAGNOSTIC CARDIAC CATH; Surgeon: Иван Kaur MD; [facility] CHOLECYSTECTOMY 1988 GASTRIC BYPASS SURGERY 2012 HYSTERECTOMY, TOTAL ABDOMINAL 1973 right carotid stent 10/09 right knee arthroscopy 1989 THYROIDECTOMY 2005 THYROIDECTOMY, PARTIAL 1985 TONSILLECTOMY AND ADENOIDECTOMY 1950 TOTAL KNEE ARTHROPLASTY Right 07/16/2015 Procedure: Right Total Knee Arthroplasty; Surgeon: Jordin Fernandez MD; Location: [facility] UVULOPALATOPHARYGOPLASTY 1987 Family History Problem [...] file Social History Narrative Lives alone in [place] Review of Systems Constitutional: Positive for fatigue. [...] no acute Aung Regan MD 07/11/17 1706 cNga Alvarez RN - 07/11/2017 2:19 PM PDTPt c/o [...] Evaluation: Le is discharging to home [facility] wher e she has lived a month - she is able to be as physically active there as she chooses - larg e walking park and many organized social events [...] contacted Lisa in admitting to update in [facility]. Discharge Planning: Le is independent with her ADL's at baseline and does not own or utilize any assisti ve devices at home. Patient does use a CPAP at [facility] that is serviced through [employer]. Patient states that she lives at [facility] and that her apartment is "set up" with grab bars in th e bathroom, hand held shower head, shower seat, and life alert necklace. Patient's friend leander moreno provide transportation home and can assist in the home as needed after discharge. aNsim forbes denies additional questions, concerns, or needs regarding anticipated plan for discharge back to [facility] when medically stable. Disposition: Home, no anticipated needs. Electronically signed by: Belkys Bansal RN 07/12/2017 10:39 lan of Care - Janeth Boudreaux RN - 07/12/2017 6:44 [...] Susanne Pride RN - 07/11/2017 7:19 PM [id number] Pt arrived via WC from ED. Report [...] + + + + | Product | [id number] | | [facility] | | | Code | | | [facility] | | | | | | MEDICAL | | | | | | CENTER - | | | | | | BLOOD BANK | | + + + + + + | UNIT # | [id number] | | [facility] | | | | [...] | | INTERP | | | [facility] | | [...] + + + + | Blood | [id number] | | [facility] | | | Product [...] St | [place] | | | [facility] | | [address] | | | - BLOOD BANK | | | | + + + + + Red Blood Cells (PRBC) - Crossmatch (07/12/2017 1:15 PM PDT) + + + + + + | Component | Value | Ref Range | Performed | Pathologist | | | | | At | Signature | + + + + + + | Product | [id number] | | [facility] | | | Code | | | [facility] | | | | | | MEDICAL | | | | | | CENTER - | | | | | | BLOOD BANK | | + + + + + + | UNIT # | [id number] | | [facility] | | | | [...] | | INTERP | | | [facility] | | [...] + + + + | Blood | [id number] | | [facility] | | | Product [...] + + + + | Product | [id number] | | [facility] | | | Code | | | [facility] | | | | | | MEDICAL | | | | | | CENTER - | | | | | | BLOOD BANK | | + + + + + + | UNIT # | [id number] | | [facility] | | | | [...] + + + + | Blood | [id number] | | [facility] | | | Product [...] ST. | [address] | [place], [place] | | | [facility] | | [address] | | | - BLOOD BANK | | | | + + + + + POC Glucose (07/12/2017 6:13 AM PDT) + +-------+ + + + | Component | Value | Ref Range | Performed | Pathologist | | | | | At | Signature | + +-------+ + + + | Glucose, | 105 | 70 - 109 mg/dL | [facility] | | | POC [...] [address] | [place] | [phone] | | [facility] | | [address] | | | - LABORATORY | | [...] | | B-12 | <145 | | [facility] | | | | pg/mLINDETERMINATE: | [...] + | [facility] | [address] | [place] | [phone] | | [facility] | | [address] | | | - LABORATORY | | | | + + + + + Ferritin (07/12/2017 4:48 AM PDT) + +-------+ + + + | Component | Value | Ref Range | Performed | Pathologist | | | | | At | Signature | + +-------+ + + + | FERRITIN | 5 (L) | 11 - 307 ng/mL | [facility] | | | | | [...] + | [facility] | [address] | [place], [place] | [phone] | | [facility] | | [address] | | | - LABORATORY | | [...] ST. | [address] | [place] | [phone] | | [facility] | | [address] | | | - LABORATORY | | | | + + + + + Shielaime INR (07/12/2017 4:48 AM PDT) + + [...] + + + + + | [facility] | [address] | [place] | [phone] | | [facility] | | [address] | | | - LABORATORY | | | | + + + + + Magnesium (07/12/2017 4:48 AM PDT) + +-------+ + + + | Component | Value | Ref Range | Performed | Pathologist | | | | | At | Signature | + +-------+ + + + | Magnesium | 2.0 | 1.8 - 2.5 mg/dL | [facility] [...] [address] | [place] | [phone] | | [facility] | | [address] | | | - LABORATORY | | [...] | | | Cells | | | [facility] | | | | | | MEDICAL | | | | | | CENTER - | | | | | | LABORATORY | | + + + + + + | Red Blood | 3.58 (L) | 3.70 - 5.20 | [facility] | | | Cells | | M/uL | [facility] | | | | | | MEDICAL | | | | | | CENTER - | | | | | | LABORATORY | | + + + + + + | Hemoglobin | 8.6 (L) | 11.5 - 16.0 | [facility] | | | | | g/dL | [facility] | | | | [...] + | [facility] | [address] | [place] | [phone] | | [facility] | | [address] | | | - LABORATORY | | [...] | 0.82 | 0.60 - 1.30 | [facility] | | | | | mg/dL | [facility] | | | | | | MEDICAL | | | | | | CENTER - | | | | | | LABORATORY | | + + + + + + | eGFR, | >60Comment: GLOMERULAR | >=60 | [facility] | | | non- | FILTRATION | mL/min/1.73m2 | [facility] | | | [place] | RATE,ESTIMATED | | MEDICAL | | | | mL/min/1.13a8Pnzn than | | CENTER - | | [...] | | ine Ratio | | | [facility] | | | [...] [address] | [place] | [phone] | | [facility] | | [address] | | | - LABORATORY | | | | + + + + + Surgical Pathology Exam (07/12/2017 12:00 AM PDT) + + | Specimen | + + | | + + + + + | Narrative | Performed At | + + + | SPECIMEN(S): A GASTRIC BIOPSY SPECIMEN SOURCE: A. GASTRIC | [place] [facility] | | BIOPSY CLINICAL HISTORY: GI [...] pylori with HE | | | stain. [facility]:smn:C2NR GROSS DESCRIPTION: The specimen, labeled | | | and designated "Lehnert, gastric biopsy," is received in formalin and | | | consists of a single pink-foreman soft tissue up to 0.5 cm that is | | | submitted in toto within (A1). mas:ANGELA:myra PERFORMING LABORATORY: | | | The technical component and professional interpretation were | | | performed by [facility], [address] [place] [address] | | | [place] [address] (Discharge Rn: Pradip Medina D.O.; CLIA#: | | | [id number]). Diagnostician: Bill Yuen MD Pathologist | | [...] (H) | 70 - 109 mg/dL | [facility] | | | POC [...] [address] | [place] | [phone] | | [facility] | | [address] | | | - LABORATORY | | [...] [address] | [place] | [phone] | | [facility] | | [address] | | | - LABORATORY | | [...] | | Screen | | | [facility] | | | | | [...] St | [place] | | | [facility] | | [address] | | | - BLOOD BANK | [...] provided for interpretation on June | | 2017 at 1530 hours. Results [...] + + | Performing | Address | City/State[facility] | Phone Number | | Organization | [...] 13 | 7 - 18 mg/dL | [facility] | | | | | | [facility] | | | | | | MEDICAL | | | | | | CENTER - | | | | | | LABORATORY | | + + + + + + | Creatinine | 0.85 | 0.60 - 1.30 | [facility] | | | | | mg/dL | [facility] | | | | | | MEDICAL | | | | | | CENTER - | | | | | | LABORATORY | | + + + + + + | eGFR, | >60Comment: GLOMERULAR | >=60 | [facility] | | | non- | FILTRATION | mL/min/1.73m2 | [facility] | | | [place] | RATE,ESTIMATED | | MEDICAL | | | | mL/min/1.64m0Wlpr than | | CENTER - | | [...] [address] | [place] | [phone] | | [facility] | | [address] | | | - LABORATORY | | [...] | | Eosinophils | | | [facility] | | [...] | + + + + + | [facility] | [address] | [place] | [phone] | | [facility] | | [address] | | | - LABORATORY | | [...] | | | Enterobacter cloacae | | [facility] | | | | complexComment: Consider | [...] + | [facility] | [address] | [place] | [phone] | | [facility] | | [address] | | | - LABORATORY | | [...] Urine | | Yellow, Straw | [facility] | | | | | | MEDICAL | | | | | | CENTER - | | | | | | LABORATORY | | + + + + + + | Clarity, | Hazy (A) | Clear | [facility] | | | Urine | | | [facility] | | [...] - 1.030 | [facility] | | | [place], | | | [facility] | | [...] | | Urine | | | [facility] | | | | | | MEDICAL [...] + | [facility] | [address] | [place], [place] | [phone] | | [facility] | | [address] | | | - LABORATORY | | [...] MD | | | | | | ([id number]) on 07/12/2017 | | | | | [...] + | [facility] | [address] | [place] | [phone] | | [facility] | | [address] | | | - LABORATORY | | [...] | | | (Daily), First dose on Wed | | | [...] | | | | | dose on 07/12/17 at 1315, Do | | | | [...]
--- OUTSIDE RECORDS SUMMARY | ~2020-02-03 | XMS | Encounter Summary ---
Demographics + + + | Address | [address] | | | [place] [address] | + + + | Home Phone [...] Author + + + | Author | [facility] | | | and [place] | + + + | Organization | [facility] | | | and [...] Team Providers + +------+ + | Care Concrete Precast [place] Name | Role | Phone | + +------+ + PCP | Unavailable | + +------+ + Reason for Visit + + + | Reason | Comments | + + + | CPAP Follow Up | | + + + Encounter Details +--------+---------+ + + + | Date | Type | Department | Care Team | Description | +--------+---------+ + + + | 07/20/ | Office | [facility] | Aung Jimenez PA | NEHEMIAH on CPAP (Primary | | 2018 | Visit | SLEEP DISORDER [address] | [address] | Dx) | | | | [address] | [place] | | | | | [place] [address] | [address] | | | | | [phone] | | | +--------+---------+ + + + [...] + + + | Blood Pressure | 120/62 | 07/20/2017 10:25 AM | | | | | PDT | | + + + + + | Pulse | - | - | | + + + + + | Temperature | - | - | | + + + + + | Respiratory Rate | 16 | 07/20/2017 10:25 AM | | | | | PDT | | + + + + + | Oxygen Saturation | - | - | | + + + + + | Inhaled Oxygen | - | - | | | Concentration | | | | + + + + + | Weight | 69.4 kg (153 lb) | 07/20/2017 10:25 AM | | | | | PDT | | + + + + + | Height | - | - | | + + + + + | Body Mass Index | 25.46 | 07/11/2017 2:20 PM | | | [...] encounter Progress Notes Aung Jimenez PA - 07/20/2017 11:00 AM PDT Subjective: Patient ID: Le Rollins is a 72 y.o. female. HPI last office visit: 05/20/2017 date of polysomnography: 09/29/2016 AHI: 20 (98.7 in supine) RDI: 21.7 O2%: 84% with 2.3 minutes below 88% Machine type: ResMed AirSense 10 Mask type: nasal mask DME: [facility] in [place] pressure: 5-20 cm Median: 7.1 cm 95%: 10.9 cm maximum: 11.3 cm Nights using CPAP: 59/61 % of nights >4 hours: 81% average usage (all nights): 5:23 average usage (nights used): 5:34 AHI: 2.3 Le comes in for CPAP compliance. She continues to do well with her CPAP usage. She rece ntly changed her insurance to Medicare, which required her to meet the CPAP usage standard a gain. She is doing well with her ResMed AirSense 10. Her CPAP has become a regular part of her sleep routine. She does not have any questions or concerns. I have discussed the download in detail. This shows that her sleep apnea is controlled, wi th an AHI of 2.3. It also shows that her leaks are controlled. She met her insurance CPAP usage standard, but has to meet it again because of her change in insurance. It shows that she is wearing her CPAP >4 hours for 868% of the nights during 30 consecutive nights. She understands the importance of treating her apnea and is committed to using her CPAP, es pecially since her CVA in 09/2015. She had another stroke in December,. She has not b een cleared to drive and getting transportation has been difficult. She has moved from [place] to [place]. This is working much better for her. Review of Systems Objective: BP 120/62 | Resp 16 | Wt 69.4 kg (153 lb) | BMI 25.46 kg/m Physical Exam Assessment: Problem #1: OBSTRUCTIVE SLEEP APNEA (TFE22-I14.33) This is controlled with CPAP. She is doing well with her CPAP usage with her ResMed AirSen se 10. She has used her CPAP >4 hours for 86% of the nights for 30 consecutive nights. Plan: 1. She is to continue with CPAP indefinitely. 2. Touch base with medical supplier twice per year to ensure that all equipment is satisfa ctory. I will follow up again in 1 year, sooner prn. Fifteen minutes were spent [id number], wit h the majority of time spent [...]
--- OUTSIDE RECORDS SUMMARY | ~2020-02-03 | XMS | Encounter Summary ---
Demographics + + + | Address | [address] | | | [place] [address] | + + + | Home Phone [...] + + + | Author | [facility] | | | and [place] | + + + | Organization | [facility] | | [...] Team Providers + +------+ + | Care Pipe Coremaker Name | Role | Phone | + +------+ + | Warren Harrington | PCP | | + +------+ + Encounter Details +--------+ + + + + | Date | Type | Department | Care Team | Description | +--------+ + + + + | 08/28/ | Imaging | [facility] | Provider, | | | 2019 | Exam | [facility] | [address] | | | | | IMAGING [address] | [address]. | | | | | [address] | [place] [address] | | | | | [place] [address] | | | | | | [phone] | | | +--------+ + + + [...] +--------+ + + + | XR KNEE LEFT 1 - 2 | Routin | 07/06/2018 | | Results for this | | VW | e | 12:00 AM | | procedure are in the | | | | PDT | | results section. | + +--------+ + + + documented in this encounter Results XR Knee Left 1 - 2 Vw (07/06/2018 12:00 AM [...]
--- OUTSIDE RECORDS SUMMARY | ~2020-02-03 | XMS | Encounter Summary ---
Demographics + + + | Address | [address] | | | [place] [address] | + + + | Home Phone [...] + + + | Author | [facility] | | | and [place] | + + + | Organization | [facility] | | | [...] Team Providers + +------+ + | Care Machine Operator Hay Stacker Name | Role | Phone | + [...] | | | | | | | [place] | | | | | | [...] Description | +--------+---------+ + + + | 07/15/ | Surgery | [facility] | Jordin Fernandez MD | Right Total Knee | | 2016 | | [facility] | [address] | Arthroplasty | | | | [address] | [place] | | | | | [place], [place] | [address] | | | | | [address] | [phone] | | | | | [phone] | | | +--------+---------+ + + + [...] + + + | Blood Pressure | 109/46 | 07/16/2015 2:10 PM | | | | | PDT | | + + + + + | Pulse | 75 | 07/16/2015 2:10 PM | | | | | PDT | | + + + + + | Temperature | 37.2 C (99 F) | 07/16/2015 1:33 PM | | | | | PDT | | + + + + + | Respiratory Rate | 11 | 07/16/2015 2:10 PM | | | | | PDT | | + + + + + | Oxygen Saturation | 100% | 07/16/2015 2:10 PM | | | | | PDT | | + + + + + | Inhaled Oxygen | - | - | | | Concentration | | | | + + + + + | Weight | 72.1 kg (159 lb) | 07/16/2015 10:00 AM | | | | | PDT | | + + + + + | Height | 165.1 cm (5' 5") | 07/16/2015 10:00 AM | | | | | PDT [...] and will pursue home health [facility] by outpatient physical therapy 3 times per week for 6 weeks. Weightbearing status is as tolerated on the right lower limb. The incision will be kept clean and dry with OZZY tineo aterally to help with the edema. The patient will do home exercises as instructed by gabriela l therapy and take a regular diet.. [...] above and all questions were answered. Pharmaci st will follow-up with patient in one to [...] days from your surgery date at the [facility]. Your shalini will be removed at this appointmen t. You may call to confirm this appointment: [phone] When to Seek Medical Attention Call 911 [...] documented as of this encounter Progress Notes Venecia Escamilla RN - 07/19/2015 9:55 AM PDTPer pt. [...] here and pt. Is taken out of [facility], [facility]. Catrachita Birch, PharmD - 07/19/2015 8:57 AM Jose Eduardo Rollins is s/p tka and discharged home [...] above and all questions were answered. Pharmaci st will follow-up with patient in one to [...] discharge tomorrow, home with home health vs. [facility] Jordin Sims MD - 07/17/2015 8:59 AM [...] Jordin Fernandez MD - 07/16/2015 11:46 AM PDTProFormerly [facility] AND [...] signed by: Jordin Fernandez, 07/16/2015 11:46 [facility]DSElectronically signed by Jordin Fernandez MD at 07/15 [...] and moderate femoral/tibial chondrosis. Echocardiogram 07/26/2014 at [facility] showed good LV function. There were some mild valvular ins ufficiencies, but nothing significant. EKG is pending here at the Clinic and bloodwork done in [place] in April has been reque sted. Impression [...] involved and expected recovery afterward. She gives [employer] consent in writing. She desires to go to [facility] in [place] for initial postoperative rehabi litation. She has [...] EVERY 6 HOURS NEEDED FOR PAIN; Therapy: [id number] to (Evaluate:[id number]); Last Rx:[id number] Ordered Benadryl 25 MG Oral Tablet; Therapy: (Recorded:20Jul2014) to Recorded Calcium + D TABS; Take 2 p.o. b.i.d; Therapy: (Recorded:[id number]) to Recorded Cyclobenzaprine HCl - 10 MG Oral Tablet; TAKE ONE-HALF TO ONE TABLET BY MOUTH AT BEDTIME NEEDED; Therapy: [id number] to (Evaluate:17Feb2015) Requested for: [id number]; Last Rx:[id number] Ordered DULoxetine HCl - 30 MG Oral Capsule Delayed Release Particles (Cymbalta); TAKE 1 CAPSULE DAILY Requested for: [id number]; Last Rx:[id number] Ordered EpiPen 0.3 MG/0.3ML (1:1000) ANSHU; INJECT 0.3ML INTRAMUSCULARLY DIRECTED; Therapy: [id number] to (Last Rx:[id number]) Ordered Levothyroxine Sodium 137 MCG Oral Tablet; TAKE ONE TABLET BY MOUTH EVERY DAY; Therapy: 30Apr2015 to (Last Rx:30Apr2015) Requested for: 30Apr2015 Ordered Lisinopril-Hydrochlorothiazide 20-25 MG Oral Tablet; TAKE 1 TABLET DAILY Requested for: 42Elq6683; Last Rx:[id number] Ordered Magnesium 200 MG Oral Tablet; TAKE 1 TABLET DAILY DIRECTED; Therapy: (Recorded:[id number]) to Recorded Multi-Day Vitamins TABS; Take one daily; Therapy: (Recorded:67Yjo2267) to Recorded Silver Sulfadiazine 1 % External Cream; APPLY TO AFFECTED AREA TWICE DAILY DIRECTED; Therapy: 30Apr2015 to (Last Rx:30Apr2015) Requested for: 30Apr2015 Ordered Vitamin B-12 1000 MCG Oral Tablet; Therapy: (Recorded:20Jul2014) to Recorded Allergies Abilify TABS CloNIDine HCl TABS Actos TABS Msltvxdr-USG-5 PTWK HumaLOG SOLN Lantus SOLN bee sting [...] RN - 07/19/2015 12:24 PM PDTDischarge planning; HH orders faxed to [facility]. Patient will need a [place] licensed MD to follow HH. Dis cussed with Dr. Fernandez. He consulted with Dr. Thang Hernandez who agrees to cover. Dr. David weber discharge summary. Faxed with receipt of confirmation. Negra at [facility] updated. Karmen Dias RNinspector receiving 1 2:36 PM PDTPlan of Salma - [...] Therapy Discharge Note Patient Information Patient Name: Le Rollins Date of : 1945 Age: 70 y.o. Precautions/Limitations: falls Left Upper Extremity Weight-Bearing: full weight-bearing Right Upper Extremity Weight-Bearing: full weight-bearing Left Lower Extremity Weight-Bearing: full weight-bearing Right Lower Extremity Weight-Bearing: weight-bearing as tolerated Start Time: 0820 Stop time: 0844 Time Calculation: 24 minutes Missed Treatment Time: [...] becoming more symmetrical w/ distance. Level of [place] : modified independence Assistive Device: 2 wheeled walker (FWW) Distance (feet): 300 Gait Pattern Analysis: 2-point gait Gait Deviations: step length decreased Stairs Number of Stairs: 4 Handrail Location: both sides Level of [place]: modified independence Assistive Device: none Technique Used: step to step (ascending), step to step (descending) Transfers Sit-Stand, Level of [place]: modified independence Stand-Sit, Level of [place]: modified independence Sxr-Jltcl-Iej, Assistive Device: 2 wheeled walker (FWW) Safety Issues: (.) Impairments: pain, strength decreased, ROM decreased Bed Mobility Assistive Device: none Supine to Sit, Level of [place]: independent Sit to Supine, Level of [place]: independent Safety Issues: (.) Impairments: strength decreased Therapeutic Exercise TKA exercises: TKA program, right Repetitions: 10 ROM R LE ROM: 0-105 Strength Pt with B UE and L LE strength WFL; can perform partial ankle pump on R and AAROM R heel sl sampson R LE Strength: 4/5 STG GOALS [place] Level: independent Assistive Device: none Time to Achieve: 2 - 3 days Goal Status: met Transfer Training Goal, Activity Type: sit to stand/stand to sit [place] Level: modified independence Assistive Device: 2 wheeled walker (FWW) Time to Achieve: 2 - 3 days Goal Status: met Gait Training Goal, [place] Level: modified independence Assistive Device: 2 wheeled walker (FWW) Distance: 150 ft Time to Achieve: 2 - 3 days Goal Status: met Stairs Goal, [place] Level: modified independence Assistive Device: none Number [...] Pt c/o nathan n and got two Charlotte 10-325mg at 5am. She is eager to discharge home today. Shalini over inc ision intact, ABD pad has one red spot from previous shift. Ozzy hose on over the ABD pad. RLE warm, strength 5/5, pedal pulse +2, cap refill < 3 seconds. Pt up in chair watching TV prior to bedtime. lan of [facility] - Jaimie San - 07/18/2015 12:15 PM PDTMet with Le this afternoon regarding discharge plans . Le feels that she will be okay going home. She will have help with her son and friends. Her son Anderson will transport her home when she is medically stable. Home health was declined. Electronically signed by: Jaimie Thompson 07/18/2015 12:17 lan of [facility] - Bel Alonso, PT - 07/18/2015 12:09 [...] she w ants discharge home or to [facility]. Pt having some concerns about being home [...] becoming more symmetrical w/ distance. Level of [place] : modified independence Assistive Device: 2 wheeled walker (FWW) Distance (feet): 300 Gait Pattern Analysis: 2-point gait Gait Deviations: step length decreased Stairs Number of Stairs: 4 Handrail Location: both sides Level of [place]: modified independence Assistive Device: none Technique Used: step to step (ascending), step to step (descending) Transfers Sit-Stand, Level of [place]: modified independence Stand-Sit, Level of [place]: modified independence Qgs-Cfvzy-Oul, Assistive Device: 2 wheeled walker (FWW) Safety Issues: (.) Impairments: pain, strength decreased, ROM decreased Bed Mobility Assistive Device: none Supine to Sit, Level of [place]: independent Sit to Supine, Level of [place]: independent Safety Issues: (.) Impairments: strength decreased ROM R LE ROM: 0-85 Strength Pt with B UE and L LE strength WFL; can perform partial ankle pump on R and AAROM R heel sl sampson STG GOALS [place] Level: independent Assistive Device: none Time to Achieve: 2 - 3 days Goal Status: met Transfer Training Goal, Activity Type: sit to stand/stand to sit [place] Level: modified independence Assistive Device: 2 wheeled walker (FWW) Time to Achieve: 2 - 3 days Goal Status: met Gait Training Goal, [place] Level: modified independence Assistive Device: 2 wheeled walker (FWW) Distance: 150 ft Time to Achieve: 2 - 3 days Goal Status: met Stairs Goal, [place] Level: modified independence Assistive Device: none Number [...] Sariah Alonso, PT, 07/18/2015 11:57 lan of [facility] romana, Venecia Kang RN - 07/18/2015 11:17 AM [...] under control at this time. lan of [facility] - Alivia Ireland RN - 07/18/2015 5:38 [...] right leg that was relieved by two Charlotte 5-325mg tablets. Pt requested PO Benadryl 25mg [...] Will apply CPM this morning. lan of Care - Wi Lula herring RN - 07/17/2015 4:57 PM [...] No falls. No s/s infection. lan of Care - Sariah Busch, PT - 07/17/2015 4:25 PM PDTProblem: Patient [...] step length, continuous gait pattern Level of [place] : supervision required, verbal cues required Assistive Device: 2 wheeled walker (FWW) Distance (feet): 300 Gait Pattern Analysis: 2-point gait Gait Deviations: step length decreased Stairs Number of Stairs: 4 Handrail Location: both sides Level of [place]: modified independence Assistive Device: none Technique Used: step to step (ascending), step to step (descending) Transfers Sit-Stand, Level of [place]: supervision required Stand-Sit, Level of [place]: modified independence Qcm-Onapi-Rss, Assistive Device: 2 wheeled walker (FWW) Safety Issues: (.) Impairments: pain, strength decreased Bed Mobility Assistive Device: none Supine to Sit, Level of [place]: independent Sit to Supine, Level of [place]: independent Safety Issues: (.) Impairments: strength decreased ROM R LE ROM: 0-90 Strength Pt with B UE and L LE strength WFL; can perform partial ankle pump on R and AAROM R heel sl sampson STG GOALS [place] Level: independent Assistive Device: none Time to Achieve: 2 - 3 days Goal Status: met Transfer Training Goal, Activity Type: sit to stand/stand to sit [place] Level: modified independence Assistive Device: 2 wheeled walker (FWW) Time to Achieve: 2 - 3 days Goal Status: progressing toward goal Gait Training Goal, [place] Level: modified independence Assistive Device: 2 wheeled walker (FWW) Distance: 150 ft Time to Achieve: 2 - 3 days Goal Status: progressing toward goal Stairs Goal, [place] Level: modified independence Assistive Device: none Number [...] 07/17/2015 16:20 lan of Care - Garima Cade, OT - 07/17/2015 1:45 PM PDTFormatting of this note might be different from t he original. Problem: Patient Care Overview (Adult) Goal: [...] Knee Arthroplasty; Surgeon: Jordin Fernandez MD; Location: [facility] OR Allergies Allergen Reactions Aripiprazole Bee [...] will be getting a grab bar by showe r stall, has a tub transfer bench, and getting a hand held shower head intalled. Has access to a BSC Patient s Goals: "I plan to get [...] to SNF first. Occupational Therapy will follow Le Rollins evaluation and 1 time treat. Occupational Therapy Anticipated Discharge Needs: Ongoing occupational therapy required. DC disposition TBD. Post discharge occupational therapy recommendation: no further OT Equipment Recommendations: 2 wheeled walker (FWW), shower chair, food porter Identified Problems Needing Skilled Intervention: OT eval and treat post-op TKA on (R)., gait, locomotion, and balance Planned Interventions:Planned Therapy Interventions: eval. And ADL session. Patient Status/Goals Reflects last filed data of patient status; may be from multiple contributors. ADLs Bathing, Level of [place]: set up required, supervision required, contact guard assist Assistive Device: none Bathing Assess/Train, Position: sitting Bathing Assess/Train, Impairments: pain UB Dressing, Level of [place]: set up required Assistive Device: none UB Dressing Assess/Train, Position: sitting LB, Level of [place]: set up required, verbal cues required Assistive Device: none LB Dressing Assess/Train, Position: sitting Toileting, Level of [place]: modified independence Assistive Device: bariatric bedside commode Toileting Assess/Train, Position: sitting Grooming, Level of [place]: set up required Assistive Device: none Grooming Assess/Train, Position: standing Cognitive Tests Transfers Toilet, Level of [place]: contact guard assist Toilet, Assistive Device: 2 [...] plan for care. Today's Treatment Start Time: 829 Stop time: 914 Time Calculation: 45 minutes Missed Treatment Time: minutes Total Treatment Time: 45 minutes TimedTreatment Code Minutes: 35 minutes Objective: Education: use of food porter Treatment Provided: Eval. And ADLs completed with transfers as well. Assessment: Pt. Tolerated session well. No increase in pain and no difficulty getting her street clothes on. Plan for next treatment: no further OT. Electronically signed by: Garima Coleman OT, 07/17/2015 13:39 lan of Care - Jes Pickard CNA - 07/17/2015 11:54 AM PDTThis CM Night Order Selector spoke with the patient along with Neurosurgical Nurse Practitioner Jaimie about dc planning. Patient would like to rehab at [facility] in [facility]. SNF Orders faxed to [facility] in [place]# [id number] signed by Clemente Woo CNA at 07/17/2015 [...] Stated she is expecting to go to [facility] following discharge from acute care. Objective: Treatment Provided: Pt received supine in bed, dressed in own clothing following OT session . Education: Safety w/ mobility, gait pattern Patient Status/Goals: Reflects last filed data of patient status; may be from multiple contributors. Gait symmetrical step length, continuous gait pattern Level of [place] : contact guard assist Assistive Device: 2 wheeled walker (FWW) Distance (feet): 100 Gait Pattern Analysis: 2-point gait Gait Deviations: (.) Stairs TBA Transfers Sit-Stand, Level of [place]: supervision required, verbal cues required Stand-Sit, Level of [place]: modified independence Jow-Bquyw-Rux, Assistive Device: 2 wheeled walker (FWW) Safety Issues: (.) Impairments: pain, strength decreased Bed Mobility Assistive Device: none Supine to Sit, Level of [place]: independent Sit to Supine, Level of [place]: independent Safety Issues: (.) Impairments: strength decreased ROM R LE ROM: 0-90 Strength Pt with B UE and L LE strength WFL; can perform partial ankle pump on R and AAROM R heel sl sampson STG GOALS [place] Level: independent Assistive Device: none Time to Achieve: 2 - 3 days Goal Status: met Transfer Training Goal, Activity Type: sit to stand/stand to sit [place] Level: modified independence Assistive Device: 2 wheeled walker (FWW) Time to Achieve: 2 - 3 days Goal Status: progressing toward goal Gait Training Goal, [place] Level: modified independence Assistive Device: 2 wheeled [...] and functional independence Electronically signed by: Sariah Alonso PT, 07/17/2015 11:25 [facility] HospitalMichael stack, QUILL COLLECTOR - 07/17/2015 4:36 AM PDTProblem: Patient Care [...] additional respiratory care throughout the night. lan [facility] - Alivia Alvarez RN - 07/17/2015 3:36 AM PDTProblem: Patient [...] and posterior right knee. Relieved by two Charlotte 5-32 5mg. MAI wrap CDI, Polar Care and SCD's in use. RLE warm, pedal pulse +2, cap refill < 3 s econds, some numbness in the right knee, sensation intact in the rest of the leg, leg streng th 4/. HRR with murmur, LS clear, BT active. lan of [facility] Michael corea, QUILL COLLECTOR - 07/17/2015 2:24 AM PDTProblem: Patient Care [...] respiratory care throughout the night. lan of [facility] Radha Glasgow RN - 07/16/2015 8:01 PM [...] symptoms for infections. lan of Care - Walker ernandez, Wilma Yo, PT - 07/16/2015 5:10 PM PDT Problem: [...] be from multiple contributors. Gait Level of [place] : contact guard assist, 2 person assist required Assistive Device: 2 wheeled walker (FWW) Distance (feet): 3 ft f & b Gait Pattern Analysis: 3-point gait Gait Deviations: step length decreased, weight-shifting ability decreased, wjn-vs-rneui rosemary arance decreased, fsoxe-jx-aelvkh ratio decreased, double stance time increased Stairs NT Transfers Sit-Stand, Level of [place]: contact guard assist, 2 person assist required, verbal cu es required Stand-Sit, Level of [place]: contact guard assist, verbal cues required Ouo-Gxlne-Ycj, Assistive Device: 2 wheeled walker (FWW) Safety Issues: step length decreased, weight-shifting ability decreased Impairments: ROM decreased, strength decreased, impaired balance Bed Mobility Supine to Sit, Level of [place]: minimum assist (75% patient effort), verbal cues requ ired Sit to Supine, Level of [place]: verbal cues required, minimum assist (75% patient eff ort) Safety Issues: decreased use of legs for bridging/pushing Impairments: impaired balance, strength decreased, ROM decreased ROM R LE ROM: 0-82 degrees R knee Strength Pt with B UE and L LE strength WFL; can perform partial ankle pump on R and AAROM R heel sl sampson STG GOALS [place] Level: independent Assistive Device: none Time to Achieve: 2 - 3 days Goal Status: new Transfer Training Goal, Activity Type: sit to stand/stand to sit [place] Level: modified independence Assistive Device: 2 wheeled walker (FWW) Time to Achieve: 2 - 3 days Goal Status: new Gait Training Goal, [place] Level: modified independence Assistive Device: 2 wheeled [...] of [place] n) Physical Therapy will follow Le Rajesh Rollins 2 times/day until discharge from therapy or discharged from the hospital. Anticipated days that therapy will be provided: 2-3 days Physical Therapy Anticipated Discharge Needs: Ongoing PT services required. DC disposition TBD. Post discharge physical therapy recommendation: ongoing low intensity therapy (Short term rehab at [facility] (pt wants to go to [facility] in [place] [place])) Equipment Recommendations: 2 wheeled walker (FWW) (pt has a SPC that she uses occasionally ; also has her mom's 4WW and a friend is also loaning her a FWW (son is going to bring wood armstrong FWW in to be adjusted)) Patient and/or [...] General LMA anesthesia Surgeon: Jordin Fernandez MD Lead Based Paint Technician: RONNA Campbell. Note the specimen preparation assistant was necessary in performing th is procedure. [...] into the tibial basepl ate with the slot tag inserter. Tourniquet was deflated. Hemostasis was achieved with [...] | | | l | | | Brionna | | | Phillip | | | [...] + | [facility] | [address] | [place] | [phone] | | [facility] | | [address] | | | - LABORATORY | | | | + + + + + Extra Green Top Tube (07/17/2015 6:54 AM PDT) + +-------+ + + + | Component | Value | Ref Range | Performed | Pathologist | | | | | At | Signature | + +-------+ + + + | Extra Green | Done | | [facility] | | | Top Tube | | [...] [address] | [place] | [phone] | | [facility] | | [address] | | | - LABORATORY | | [...] | | | | | g/dL | [facility] | | | | [...] ST. | [address] | [place], [place] | [phone] | | [facility] | | [address] | | | - LABORATORY | | | | + + + + + POC Glucose (07/16/2015 5:18 PM PDT) + +-------+ + + + | Component | Value | Ref Range | Performed | Pathologist | | | | | At | Signature | + +-------+ + + + | Glucose, | 133 | 70 - 150 mg/dL | [facility] | | | POC | | | [...] [address] | [place] | [phone] | | [facility] | | [address] | | | - LABORATORY | | [...] Procedure Note | + + | Maurice, Steven Results In - 07/16/2015 5:05 PM PDT [...] [address] | [place] | [phone] | | [facility] | | [address] | | | - LABORATORY | | [...] [address] | [place] | [phone] | | [facility] | | [address] | | | - LABORATORY | | | | + + + + + documented in this encounter Visit Diagnoses + + | Diagnosis | + + | Primary osteoarthritis of right knee Primary localized osteoarthrosis, lower leg | + + documented in this encounter Administered Medications + +---------+ + +------+------+ | Medication Order | MAR | Action | Dose | Rate | Site | | | Action | Date | | | | + +---------+ + +------+------+ | tranexamic acid (CYKLOKAPRON) | New Bag | 07/16/19 | 3,000 mg | | | | injection Administer over 15 | | 16 12:58 | | | | | Minutes, CONTINUOUS PRN, Starting | | PM PDT | | | | | 07/16/15 at 1258, Intra-op | | | | | | + +---------+ + +------+------+ +---+---+ | | | +---+---+ + +-------+ +--------+---+ + | vancomycin 1,000 mg, ketorolac | Given | 07/16/19 | 20 mLs | | Surgical | | (TORADOL) 30 mg in bupivacaine | | 16 12:40 | | | Site | | 0.25%-EPINEPHrine 1:200,000 19 mL | | PM PDT | | | | | OpTesia mixture PRN, Starting | | | | | | | 07/16/15 at 1240, Intra-op | | | | | | + +-------+ +--------+---+ + +---+---+ | | | +---+---+ documented in this encounter
--- OUTSIDE RECORDS SUMMARY | ~2020-02-03 | XMS | Encounter Summary ---
Demographics + + + | Address | [address] | | | [place] [address] | + + + | Home Phone | | + + + | Preferred Language | Unknown | + + + | Marital Status | Single | + + + | Jainism Affiliation | 1013 | + + + | Race | White | + + + | Ethnic Group | Not or | + + + Author + + + | Author | [facility] | | | and [place] | + + + | Organization | [facility] | | | and [...] Team Providers + +------+ + | Care Tube Backer Name | Role | Phone | + +------+ + PCP | Unavailable | + +------+ + Reason for Visit +--------+--------+ + | Reason | Onset | Comments | | | Date | | +--------+--------+ + | Other | 09/15/ | alert for NSVT on mobile cardiac telemetry | | | 2018 | | +--------+--------+ + Encounter Details +--------+ + + + + | Date | Type | Department | Care Team | Description | +--------+ + + + + | 09/15/ | Telephone | [facility] | Maral Alfonso, | Other (alert for | | 2018 | | CARDIOLOGY [address] | 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 [address] [place] | NSVT on mobile | | | | [place], | [place], [place] | cardiac telemetry) | | | | [place] [address] | [address] | | | | | [phone] | | | +--------+ + + + [...] encounter Miscellaneous Notes Telephone Encounter - Oma Mayorga RN - 09/15/2018 1:35 PM PDTPatient notified, wi ll start metoprolol succinate 25 mg tonight ..........................................Zena Mayorga RN on 09/15/18 at 13:36 [facility]phone [facility] Maral Alfonso ARNP - 09/15/2018 11:26 AM PDTReceived an alert report from mobile card iac telemetry for event on 09/11/18 of non-sustained ventricular tachycardia lasting 15 beats at rate >150 beats per minute. Please call the patient and let her know that her monitor showed an alert report for a fast heart rate starting in the bottom of her heart that happened on Wednesday around 10 AM. This t ype of rhythm is called non-sustained ventricular tachycardia, and can be dangerous if it go es on too long. We like to try to suppress this rhythm with medication to avoid that, so ple severo have her start taking metoprolol succinate 25 mg daily in the evening, and continue with plan to finish the monitor and have her left heart catheterization done as scheduled. Phoebepatrizia umm have her also check blood pressure and pulse twice daily for two weeks and return the log to our office. Thanks! ...........................................NICOLE Newman on 09/15/18 at 11:31 do cumented in this encounter Plan of Treatment Not on filedocumented as of this encounter Visit Diagnoses Not on filedocumented in this encounter"
--- OUTSIDE RECORDS SUMMARY | ~2020-02-03 | XMS | Encounter Summary ---
Demographics + + + | Address | [address] | | | [place] [address] | + + + | Home Phone | | + + + | Preferred Language | Unknown | + + + | Marital Status | Single | + + + | Druze Affiliation | 1013 | + + + | Race | White | + + + | Ethnic Group | Not or | + + + Author + + + | Author | [facility] | | | and [place] | + + + | Organization | [facility] | | | [...] Team Providers + +------+ + | Care Restorative Art Embalmer Name | Role | Phone | + +------+ + | Wilson Lin MD | PCP | | + +------+ + Encounter Details +--------+ + + + + | Date | Type | Department | Care Team | Description | +--------+ + + + + | 10/02/ | Hospital | [facility] | Conversion | Unknown cause of | | 2015 | Encounter | [address] | Transaction, | injury | | | | [address] | Provider Unknown | | | | | [place], [place] | [phone] | | | | | [address] | | | | | | [phone] | | | +--------+ + + + [...] +--------+ + + + | XR CHEST 1 VIEW | Routin | 10/01/2015 | | Results for this | | | e | 4:57 PM | | procedure are in the | | | | PDT | | results section. | + +--------+ + + + documented in this encounter Results XR Chest 1 Vw (10/01/2015 4:57 PM PDT) + + | Specimen | + + | | + + + + + | Narrative | Performed At | + + + | This is a non-reportable procedure without a radiologist report and | | | is used for image storage only | | + + + + + | Procedure Note | + + | Steven Richards - 12/08/2018 5:40 PM PDT This is a non-reportable procedure | | without a radiologist report and isused for image storage only | + + documented in this encounter Visit Diagnoses + + | Diagnosis | + + | Unknown cause of injury Unspecified accident | + + documented in this encounter"
--- OUTSIDE RECORDS SUMMARY | ~2020-02-03 | XMS | Encounter Summary ---
Demographics + + + | Address | [address] | | | [place] [address] | + + + | Home Phone [...] Author + + + | Author | [facility] | | | and [place] | + + + | Organization | [facility] | | | [...] Team Providers + +------+ + | Care Front Office Clerk Name | Role | Phone | + +------+ + | Wilson Lin MD | PCP | | + +------+ + Reason for Visit +--------+--------+ + | Reason | Onset | Comments | | | Date | | +--------+--------+ + | Other | 12/05/ | update on patient | | | 2019 | | +--------+--------+ + Encounter Details +--------+ + + + + | Date | Type | Department | Care Team | Description | +--------+ + + + + | 12/05/ | Telephone | [facility] | Maral Alfonso, | Other (update on | | 2019 | | CARDIOLOGY [address] | 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 ...........................................Indu Gómez RN on 12/08/18 at 12:45 elephone Encounter - Irish Pinzon RN - 12/07/2018 4:54 PM PDTZaida notified that she is ok to proceed. Left another message for Hunter at cardiac rehab in [facility] that Zaida is ok to proceed wit h rehab. ...........................................Irish Pinzon RN on 12/07/18 at 16:57 elephone Maral Hernandez ARNP - 12/07/2018 2:47 PM PDTGood, she is fine to proceed with cardiac rehab. Thanks! ...........................................NICOLE Newman on 12/07/18 at 14:47 elephone Irish Dempsey RN - 12/07/2018 11:32 AM PDTLeft message for Hunter at [facility] cardiac rehab. ...........................................Irish Pinzon RN on 12/07/18 at 11:32 elephone Indu Ecueda RN - 12/06/2018 3:39 PM PDTSpoke with Zaida today. She went to ER last week. She actually had a really bad UTI that was causing all of her symptoms. She was put on an antibiotic and she is doing much better. She is willing to go back to Cardiac Rehab as soon as possible. Called Hunter at [facility] [phone], left message for her to return my call. She just needs to know that we got her message and have followed up with the patient and e patient is now ok to proceed with Cardiac Rehab if she has not arranged that already. ...........................................Indu Gómez RN on 12/06/18 at 15:46 elephone Encounter - Indu Gómez RN - 12/05/2018 12:48 PM PDTRobin from Cardiac Rehab at [facility] called. She states that zaida came in for rehab last week and seemed very confused. Janey salomon had been wandering around the hospital and did not know where she was or what she was supp osed to be doing. She reported a history of TIA to Hunter so Hunter took her to ER for evaluat ion. She wanted to let us know this and also let us know that she is going to defer rehab u ntil patient is ready depending on what happened at the ER. ................................ ...........Indu Gómez RN on 12/05/18 at 12:50 documented in this encounter Plan of Treatment Not on filedocumented as of this encounter Visit Diagnoses Not on filedocumented in this encounter"
--- OUTSIDE RECORDS SUMMARY | ~2020-02-03 | XMS | Clinical Summary ---
Demographics + + + | Address | [address] | | | [place] [address] | + + + | Home Phone [...] Author + + + | Author | [facility] | | | and [place] | + + + | Organization | [facility] | | | [...] Team Providers + +------+ + | Care Nurse Manager Name | Role | Phone | + +------+ + | Warren Harrington | PCP | | + +------+ + Allergies + + + + + + | Active Allergy | Reactions | Severity | Noted | Comments | | | | | Date | | + + + + + + | Aripiprazole | Swelling | High | 09/24/20 | Throat swelling | | | | | 15 | | + + + + + + | Bee Venom | | | 09/24/20 | | | | | | 15 | | + + + + + + | Clonidine | Swelling | High | 10/15/20 | Throat swelling | | Derivatives | | | 12 | | + + + + + + | Insulin Lispro | Swelling | High | 09/24/20 | Throat swelling | | | | | 15 | | + + + + + + | Iodine | Unknown | | 10/04/19 | Topical iodine NOT | | | | | 16 | iodinated contrast | + + + + + + | Insulin Glargine | | | 01/18/20 | | | | | | 15 | | + + + + + + | Pioglitazone | Swelling | High | 10/04/19 | Patient states | | | | | 16 | throat swelling. | + + + + + + | Shellfish | Hives, Nausea And | | 10/04/19 | Patient states | | | Vomiting, Swelling | | 16 | throat swelling; eye | | | | | | swelling diarrhea | | | | | | and vomiting (x 14 | | | | | | days). | + + + + + + | Shellfish-Derived | Swelling | High | 02/08/20 | Throat swelling | | Products | | | 12 | | + + + + + + | Statins | | | 02/08/20 | Patient could not | | | | | 12 | remember which | | | | | | statin caused her | | | | | | problems. She | | | | | | tolerates | | | | | | atorvastatin fine | + + + + + + | Uncoded | Unknown | | 10/10/19 | Patient states | | Nonscreenable | | | 16 | hayfever causes | | Allergen | | | | throat drainage. | + + + + + + | Wasp Venom Protein | Swelling | | 10/04/19 | | | | | | 16 | | + + + + + + Medications + + + +---------+------+------+-------+ | Medication | Sig | Dispensed | Refills | Star | End | Statu | | | | | | t | Date | s | | | | | | Date | | | + + + +---------+------+------+-------+ | DULoxetine | Take 20 mg by mouth | | 0 | | | Activ | | (CYMBALTA) [address] | Daily[address] With 60 mg | | | | | e | | capsule | capsule for Total | | | | | | | | dose of 80mg | | | | | | + + + +---------+------+------+-------+ | Multiple | Take 1 tablet by | | 0 | | | Activ | | Vitamins-Minerals | mouth Daily. | | | | | e | | (MULTIVITAMIN PO) | | | | | | | + + + +---------+------+------+-------+ | cyanocobalamin | Take 1,000 mcg by | | 0 | | | Activ | | (VITAMIN B-12) 1000 | mouth Daily. | | | | | e | | MCG tablet | | | | | | | + + + +---------+------+------+-------+ | acetaminophen | Take 500 mg by mouth | 100 | 0 | 04/0 | | Activ | | (TYLENOL) 325 mg | every 8 hours as | tablet | | 3/20 | | e | | tablet | needed for Pain. | | | 16 | | | + + + +---------+------+------+-------+ | UNABLE TO FIND | Med Name: Resmed | | 0 | | | Activ | | | AirSense 10 autoset | | | | | e | | | CPAP: 5-20cm while | | | | | | | | sleeping. | | | | | | + + + +---------+------+------+-------+ | calcium-vitamin D | Take 1 tablet by | | 0 | | | Activ | | (OSCAL) 500 mg-200 | mouth Daily. | | | | | e | | units per tablet | | | | | | | + + + +---------+------+------+-------+ | DULoxetine | Take 60 mg by mouth | | 0 | | | Activ | | (CYMBALTA) [address] | Daily[address] With 20mg | | | | | e | | capsule | capsule for total | | | | | | | | dose of 80 mg | | | | | | + + + +---------+------+------+-------+ | pantoprazole | Take 1 tablet by | 84 | 1 | 03/1 | | Activ | | (PROTONIX) 40 mg | mouth 2 times daily | tablet | | 9/20 | | e | | tablet | (before meals). | | | 18 | | | + + + +---------+------+------+-------+ | EPINEPHrine | Inject 0.3 mLs into | 1 each | 1 | 03/1 | | Activ | | auto-injector 0.3 | the muscle as needed | | | 9/20 | | e | | mg/0.3 mL injection | for Anaphylaxis. | | | 18 | | | + + + +---------+------+------+-------+ | apixaban (ELIQUIS) | Take 1 tablet by | 60 | 5 | 01/1 | | Activ | | 5 mg tablet | mouth 2 times daily. | tablet | | 6/20 | | e | | | | | | 19 | | | + + + +---------+------+------+-------+ | atorvaSTATin | Take 1 tablet by | 30 | 5 | 01/1 | | Activ | | (LIPITOR) 80 MG | mouth nightly. | tablet | | 6/20 | | e | | tablet | | | | 19 | | | + + + +---------+------+------+-------+ | | Take 1 tablet by | 30 | 5 | 01/1 | | Activ | | lisinopril-hydrochlo | mouth Daily. | tablet | | 6/20 | | e | | rothiazide | | | | 19 | | | | (PRINZIDE,ZESTORETIC | | | | | | | | ) 20-25 MG per | | | | | | | | tablet | | | | | | | + + + +---------+------+------+-------+ | Magnesium 500 MG | Take 1 tablet by | 30 | 5 | 01/ | | Activ | | tablet | mouth Daily. | tablet | | 10/13 | | e | | | | | | 19 | | | + + + +---------+------+------+-------+ +---+ + | | Additional | | | InformationPatient | | | taking differently: | | | 250 mg Oral DAILY, | | | Reported on | | | 08/17/2019 11:04 AM | +---+ + + + +--------+---+------+------+-------+ | isosorbide | TAKE ONE TABLET BY | 90 | 3 | 02/ | | Activ | | mononitrate (IMDUR) | MOUTH ONE TIME DAILY | tablet | | 06/15 | | e | | 30 mg ER tablet | | | | 19 | | | + + +--------+---+------+------+-------+ | QUEtiapine | Take 25 mg by mouth | | 0 | 03/0 | | Activ | | (SEROQUEL) 25 mg | nightly. | | | 4/20 | | e | | tablet | | | | 19 | | | + + +--------+---+------+------+-------+ | nitroglycerin | Place 1 tablet under | 25 | 5 | 05/0 | | Activ | | (NITROSTAT) 0.4 mg | the tongue every 5 | tablet | | 8/20 | | e | | SL tablet | minutes as needed | | | 19 | | | | | for Chest pain. | | | | | | + + +--------+---+------+------+-------+ | metoprolol | Take 1 tablet by | 30 | 5 | 05/2 | | Activ | | succinate | mouth Daily. | tablet | | 3/20 | | e | | (TOPROL-XL) 25 mg 24 | | | | 19 | | | | hr tablet | | | | | | | + + +--------+---+------+------+-------+ | clopidogrel | Take 1 tablet by | 30 | 5 | 06/0 | | Activ | | (PLAVIX) 75 mg | mouth Daily. | tablet | | 3/20 | | e | | tablet | | | | 19 | | | + + +--------+---+------+------+-------+ | dicyclomine | Take 10 mg by mouth | | 0 | | | Activ | | (BENTYL) 10 mg | Before breakfast, | | | | | e | | capsule | dinner and bedtime. | | | | | | | | Takes with breakfast | | | | | | | | , lunch , and | | | | | | | | bedtime | | | | | | + + +--------+---+------+------+-------+ | fluticasone | 1 spray by Nasal | | 0 | | | Activ | | (FLONASE) 50 | route Daily. | | | | | e | | mcg/nasal spray | | | | | | | + + +--------+---+------+------+-------+ | gabapentin | Take 100 mg by mouth | | 0 | | | Activ | | (NEURONTIN) 100 mg | 2 times daily. | | | | | e | | capsule | | | | | | | + + +--------+---+------+------+-------+ | SITagliptin | Take 100 mg by mouth | | 0 | | | Activ | | (JANUVIA) 100 mg | Daily. | | | | | e | | tablet | | | | | | | + + +--------+---+------+------+-------+ | levothyroxine | Take 100 mcg by | | 0 | | | Activ | | (SYNTHROID) 100 mcg | mouth every morning | | | | | e | | tablet | (before breakfast). | | | | | | + + +--------+---+------+------+-------+ | levocetirizine | Take 2.5 mg by mouth | | 0 | | | Activ | | (XYZAL) 5 MG tablet | every evening. | | | | | e | + + +--------+---+------+------+-------+ | cholestyramine | Take 1 packet by | 60 | 0 | 09/2 | 10/2 | Activ | | (QUESTRAN) 4 g | mouth 2 times daily | packet | | 07/13 | 07/13 | e | | packet | for 30 days. | | | 20 | 20 | | + + +--------+---+------+------+-------+ | loperamide | Take 2 mg by mouth | | 0 | | 12/26 | Disco | | (IMODIUM) 2 mg | Twice daily as | | | | 07/13 | ntinu | | capsule | needed for Diarrhea. | | | | 20 | ed | + + +--------+---+------+------+-------+ Active Problems + + + | Problem | Noted Date | + + + | Moderate aortic valve insufficiency | 12/18/2019 | + + + | History of PTCA | 08/17/2019 | + + + | Status post insertion of drug eluting coronary artery stent | 08/17/2019 | + + + | History of stroke | 08/17/2019 | + + + | History of right common carotid artery stent placement | 08/17/2019 | + + + | History of peptic ulcer disease | 08/17/2019 | + + + | Paroxysmal atrial fibrillation | 08/31/2018 | + + + | Anemia | 09/29/2017 | + + + | Hepatitis | 09/29/2017 | + + + | Family history of type II diabetes mellitus | 09/29/2017 | + + + | Osteoarthritis | 09/29/2017 | + + + | Anastomotic ulcer S/P gastric bypass | 07/12/2017 | + + + | NEHEMIAH (obstructive sleep apnea) | 11/18/2016 | + + + | Infarction of parietal lobe | 10/10/2015 | + + + | Bilateral carotid artery stenosis | 10/04/2015 | + + + | Hypothyroidism | 10/04/2015 | + + + | Coronary artery disease involving [place] coronary artery of | 08/07/2015 | | [place] heart without angina pectoris | | + + + + + | Overview: Last Assessment & Plan: 3V-CAD, Hx PCI/stent, LVEF | | 70%. 70yo WF, with recent CVA, treated with carotid | | stenting. She is here today with her son, apparently he spoke | | with her over the telephone noticed her speech was slurring. | | Ambulance was called, she was taken to [facility], | | working diagnosis was acute CVA. She was on aspirin and Plavix | | because of her recent coronary stent, was transferred to | | [facility] in [place], they've proceeded with carotid | | stenting. She tolerated procedure well, was discharged to | | [facility] for stroke rehabilitation, did relatively well, now | | is at home. Today, she has mild drooping of the left cc, mild | | slurring of speech, but the son since this is significantly | | improved. She has no weakness of the arms or legs. ECG, | | echocardiogram, and carotid ultrasound are reviewed. Her labs | | reviewed. Tolerating medications. No changes in therapy. We'll | | follow her clinically.Hx CABG: noHx PCI/stent: 07/27/2015: | | 2.5*12mm Promus (OM2).Hx Pacemaker/ICD: noLast Cath, 07/27/2015: | | left main OK, 40% mid-LAD, LCX OK, 90% OM2, 50% mid-RCA (FFR | | 0.86). OM2 stented.Last Echo, 10/01/2015: borderline concentric | | LVH, LVEF >70%, mild LAE, mild-moderate /mild AI (calc ARISTIDES | | 1.2cm2, peak/mean gradients 25/16mmHg), trace MR, mild TR, est | | systolic PAP 23-28mmHg.Last Stress Test: naECG, 10/01/2015 ( | | [facility]): NSR, 67bpm.Last Assessment & Plan: 3V-CAD, Hx | | PCI/stent, LVEF 70%. 70yo WF, with recent CVA, treated | | with carotid stenting. She is here today with her son, | | apparently he spoke with her over the telephone noticed her | | speech was slurring. Ambulance was called, she was taken to . | | [facility], working diagnosis was acute CVA. She was on | | aspirin and Plavix because of her recent coronary stent, was | | transferred to [facility] in [place], they've proceeded | | with carotid stenting. She tolerated procedure well, was | | discharged to [facility] for stroke rehabilitation, did | | relatively well, now is at home. Today, she has mild drooping of | | the left cc, mild slurring of speech, but the son since this is | | significantly improved. She has no weakness of the arms or legs. | | ECG, echocardiogram, and carotid ultrasound are reviewed. Her | | labs reviewed. Tolerating medications. No changes in therapy. | | We'll follow her clinically.Hx CABG: noHx PCI/stent: 07/27/2015: | | 2.5*12mm Promus (OM2).Hx Pacemaker/ICD: noLast Cath, 07/27/2015: | | left main OK, 40% mid-LAD, LCX OK, 90% OM2, 50% mid-RCA (FFR | | 0.86). OM2 stented.Last Echo, 10/01/2015: borderline concentric | | LVH, LVEF >70%, mild LAE, mild-moderate /mild AI (calc ARISTIDES | | 1.2cm2, peak/mean gradients 25/16mmHg), trace MR, mild TR, est | | systolic PAP 23-28mmHg.Last Stress Test: naECG, 10/01/2015 ([facility]): NSR, 67bpm. | + + + + + | Dyslipidemia, goal LDL below 70 | 08/07/2015 | + + + + + | Overview: Last Assessment & Plan: Hyperlipidemia, continue | | current meds at current dose (atorvastatin).Labs, 10/02/2015: T | | Chol: 138, LDL-Chol: 63, HDL-Chol: 57, TriLab, 10/21/2015: | | Liver enzymes NML, K: 4.2, BUN/Cr: 13/0.7, glu: 254 | | WBC: 6.9, H/H: 12.3/37.7, plt: 267 | + + + + + | History of non-ST elevation myocardial infarction (NSTEMI) | 07/28/2015 | + + + | Moderate to severe aortic stenosis | 07/28/2015 | + + + + + | Overview: Echocardiogram on 07/15/2018 shows, mild left | | atrial dilatation, normal left ventricular size, wall thickness | | and motion, preserved left ventricular systolic function, LVEF is | | 70-75%, grade 1 left ventricular diastolic dysfunction, | | moderately thickened and calcified trileaflet aortic valve with | | moderate calcific aortic valve stenosis, right coronary cusp is | | immobile, there is a mild to moderate central aortic valve | | insufficiency, mildly thickened and calcified mitral valve | | suggesting myxomatous change, there is a trace central mitral | | valve regurgitation, mild mitral annular calcification, mild | | tricuspid valve regurgitation, borderline pulmonary hypertension | | with a peak systolic pressure of 35-40 mmHg, normal IVC with | | normal respiratory collapse, by Alicia Gonzáles MD. | + + + + + | Numbness and tingling in right hand | 02/08/2012 | + + + | DDD (degenerative disc disease), cervical | 02/08/2012 | + + + | Rotator cuff tear, right | 02/08/2012 | + + + | Obesity | | + + + | Essential hypertension with goal blood pressure less than 140/90 | | + + + | Diabetes mellitus, type 2 | | + + + + + | Overview: Off all medications since surgery | | | | Last Assessment & Plan: | | DM2, managed by PCP. | + + + +---+ | Asthma | | + +---+ | Murmur, cardiac | | + +---+ + + | Overview: Echocardiogram 07/26/14 shows normal left ventricular | | size, wall thickness and motion, preserved left ventricular | | systolic function, LVEF is 70-75%, there is evidence of a sigmoid | | septum, mildly thickened and calcified trileaflet aortic valve | | with mild calcific aortic valve stenosis, there is mild aortic | | valve insufficiency, mild mitral valve regurgitation, mild | | tricuspid valve regurgitation, normal right-sided pressure, | | normal IVC with normal respiratory collapse.Echocardiogram 07/26/15 | | shows Normal LV size and systolic function with LVEF 70%, aortic | | valve sclerosis with mild to moderate stenosis and mild | | insufficiency, mild pulmonary systolic hypertension, compared to | | patient's prior study of one year ago, no significant changes are | | noted. Juan Muro MDL 07/27/15 shows moderate obstructive | | coronary artery disease with 90% stenosi of the mid OMB2, there | | is a right dominate circulation, normal LV systolic function with | | an EF of 70%, systemic blood pressure is mildly elevated, there | | was successful hemostasis with a TR hemostatic band, NSTEMI due | | to subtotal occlusion of the OMB2.Echocardiogram 09/30/15 shows | | Sinus rhythm, degenerative Valvular Heart Disease, moderate | | calcific /mild AI (calc ARISTIDES 1.2cm2, peak/mean gradients | | 25/16mmHg), mitral valve has mild nodular calcification, trace | | MR, tricuspid valve grossly NML, mild TR, pulmonic valve not seen | | well, borderline concentric LVH, systolic function NML, grade 1 | | diastolic abnormality, LVEF >70%, mild LAE, RA/RV NML, no | | pericardial effusion, IVC appears NML, est systolic PAP | | 23-28mmHg. Denny Char DOCT Angiogram neck w contrast 10/04/2015 | | limited examination secondary to motion artifact, 60% distal | | common and 55% proximal right internal carotid artery stenosis, | | 20% distal left common carotid artery stenosis, 50% left | | vertebral artery stenosis secondary to cervical spondylosis, 50% | | right and 65% left subclavian artery stenosis. Robert Sepulveda | | M.AleaEchocardiogram 08/08/16 shows the left ventricle is normal in | | size, wall thickness and systolic function EF 60-65%, the | | diastolic filling pattern indicates impaired relaxation | | consistent with mild dysfunction (Grade I), the aortic valve is | | moderately calcified with moderate aortic stenosis and mild | | regurgitation, mild mitral regurgitation with mildly enlarged | | left atrium, mild tricuspid regurgitation with no pulmonary | | hypertension, there is none/trivial pericardial effusion. Mershed | | Alsamara | + + + +---+ | Fibromyalgia | | + +---+ Resolved Problems + + + + | Problem | Noted | Resolved | | | Date | Date | + + + + | Nonrheumatic aortic valve insufficiency | 08/17/19 | | | | 20 | 0 | + + + + | Acute blood loss anemia | 07/13/19 | | | | 18 | 0 | + + + + | UGI bleed | 07/12/19 | | | | 18 | 0 | + + + + | Cerebral infarction | 10/30/19 | | | | 16 | 0 | + + + + + + | Overview: Last Assessment & Plan: CVA, right carotid | | stenosis, treated with right carotid stenting (Sheri, | | Brayan).Carotid US, 10/01/2015 ([facility] ~70% stenosis | | right ICA, 16-49% stenosis left ICA.CTA-neck, 10/04/2015 | | (B[facility]an Rawls). | + + + + + + | Chronic ischemic heart disease | 10/04/19 | | | | 16 | 0 | + + + + | VHD (valvular heart disease) | 08/07/19 | | | | 16 | 0 | + + + + + + | Overview: Last Assessment & Plan: Mild /mild AI. Last | | Echo, 10/01/2015: borderline concentric LVH, LVEF >70%, mild LAE, | | mild-moderate /mild AI (calc ARISTIDES 1.2cm2, peak/mean gradients | | 25/16mmHg), trace MR, mild TR, est systolic PAP 23-28mmHg.Last | | Assessment & Plan: Mild /mild AI. Last Echo, 10/01/2015: | | borderline concentric LVH, LVEF >70%, mild LAE, mild-moderate | | /mild AI (calc ARISTIDES 1.2cm2, peak/mean gradients 25/16mmHg), | | trace MR, mild TR, est systolic PAP 23-28mmHg. | + + + + + + | Chest pain | 07/26/19 | | | | 16 | 0 | + + + + + + | Overview: Nuclear Stress Test on 07/12/2018 shows, Persantine | | EKG is negative, normal Persantine sestamibi myocardial | | perfusion imaging study, normal left ventricular size, wall | | thickness and motion, preserved left ventricular systolic | | function, LVEF by gated SPECT is 80%, by Alicia Gonzáles MD. | + + + + + + | Coronary artery calcification seen on CAT scan | 07/26/19 | | | | 16 | 0 | + + + + | Mixed sleep apnea | | | | | | 0 | + + + + Encounters +--------+ + + + + | Date | Type | Specialty | Care Team | Description | +--------+ + + + + | 01/21/ | Telephone | Gastroenterology | Jose D Trujillo, | Appointment Question | | 2020 | | | BELT MAKER HELPER | | +--------+ + + + + | 01/17/ | Telephone | Gastroenterology | Jose D Trujillo, | Procedure | | 2020 | | | BELT MAKER HELPER | | +--------+ + + + + | 01/16/ | Office | Gastroenterology | BettyelauraJose D, | Bowel habit changes | | 2019 | Visit | | BELT MAKER HELPER | (Primary Dx); | | | | | | Paroxysmal atrial | | | | | | fibrillation (HCC); | | | | | | Anastomotic [...] | | | | | pain | +--------+ + + + + | 12/17/ | Office | Cardiology | Ayala Cuevas | Coronary artery | | 2019 | Visit | | CORRIE Carr | disease involving | | | | | | [place] coronary | | | | | | artery of [place] | | | | | | heart without angina | | | | | | pectoris (Primary | | | | | | Dx); History of | | [...] | | | | | disease | +--------+ + + + + from Last 3 Months Immunizations + + + + | Name | Administration Dates | Next Due | + + + + | INFLUENZA 66 Y OR >, | 01/31/2015 | | | TRIVALENT HIGH-DOSE | | | + + + + | INFLUENZA PF 66 Y OR | 02/09/2018 | | | >,TRIVALENT (FLUAD) | | | + + + + Family History + + +-------+ + | Medical History | Relation | Name | Comments | + + +-------+ + | Heart disease | Brother | David | | + + +-------+ + | Heart surgery | Brother | David | | + + +-------+ + | Hypertension | Brother | David | | + + +-------+ + | Diabetes | Brother | Brien | | + + +-------+ + | Elevated lipids | Brother | Brien | | + + +-------+ + | Heart disease | Brother | Brien | | + + +-------+ + | Heart surgery | Brother | Brien | | + + +-------+ + | High cholesterol | Brother | Brien | | + + +-------+ + | Hypertension | Brother | Brien | | + + +-------+ + | Sleep apnea | Brother | Brien | | + + +-------+ + | Heart disease | Father | | coronary artery disease | + + +-------+ + | Heart disease | Father | | | + + +-------+ + | Hypertension | Mother | | | + + +-------+ + | Sleep apnea | Mother | | | + + +-------+ + | Hypertension | Mother | | | + + +-------+ + | Other (see comment) | Son | | obese | + + +-------+ + | Cancer | Son | | leukemia | + + +-------+ + + +-------+ + + | Relation | Name | Status | Comments | + +-------+ + + | Brother | David | Alive | CABX X4 post MVA, HTN, HYperlipidemia, | + +-------+ + + | Brother | Brien | Alive | CABG X2, Htn, hyperlipidemia,. DM, sleep | | | | | apnea | + +-------+ + + | Father | | | | + +-------+ + + | Father | | | triple bypass, HTN | | | | (Age | | | | | 80) | | + +-------+ + + | Mother | | | | + +-------+ + + | Mother | | | CAD, HTN | | | | (Age | | | | | 84) | | + +-------+ + + | Son | | Alive | | + +-------+ + + | Son | | | Leukemia | | | | (Age | | | | | 43) | | + +-------+ + + Social History + +-------+ +--------+------+ | Tobacco Use | Types | Packs/Day | Years | Date | | | | | Used | | + +-------+ +--------+------+ | Never Smoker | | | | | + +-------+ +--------+------+ + +---+---+---+ | Smokeless Tobacco: | | | | | Never Used | | | | + +---+---+---+ + + | Tobacco Cessation: Counseling Given: [...] on file | | + + + Last Filed Vital Signs + + + [...] | | + + + + + Plan of Treatment + + + + + | Health Maintenance | Due Date | Last | Comments | | | | Done | | + + + + + | Hepatitis C | | | | | Screening | 6 | | | + + + + + | Med Mgmt: HBA1C | | | | | | 6 | | | + + + + + | Med Mgmt: TSH | | | | | | 6 | | | + + + + + | Medication | | | | | Management | 6 | | | + + + + + | Diabetic Eye Exam | | | | | | 4 | | | + + + + + | Diabetic Foot Exam | | | | | | 4 | | | + + + + + | Hemoglobin A1c | | | | | Screening | 4 | | | + + + + + | Colorectal Cancer | | | | | Screening | 6 | | | | (Colonoscopy) | | | | + + + + + | Breast Cancer | | | | | Screening | 1 | | | + + + + + | Vaccine: | | | | | Pneumococcal 65+ (1 | 1 | | | | of 1 - PPSV23) | | | | + + + + + | Vaccine: Zoster (2 | | 02/09/20 | | | of 3) | 3 | 13 | | + + + + + | Adult Annual | | | | | Wellness Visit | 5 | | | + + + + + | Med Mgmt: Cr | | 10/05/19 | | | | 0 | 19, | | | | | 06/03/19 | | | | | 19, | | | | | 06/03/19 | | | | | 19, | | | | | Addition | | | | | al | | | | | history | | | | | exists | | + + + + + | Med Mgmt: HCT | | 10/05/19 | | | | 0 | 19, | | | | | 06/03/19 | | | | | 19, | | | | | 06/03/19 | | | | | 19, | | | | | Addition | | | | | al | | | | | history | | | | | exists | | + + + + + | Med Mgmt: HGB | | 10/05/19 | | | | 0 | 19, | | | | | 06/03/19 | | | | | 19, | | | | | 06/03/19 | | | | | 19, | | | | | Addition | | | | | al | | | | | history | | | | | exists | | + + + + + | Med Mgmt: K | | 10/05/19 | | | | 0 | 19, | | | | | 06/03/19 | | | | | 19, | | | | | 06/03/19 | | | | | 19, | | | | | Addition | | | | | al | | | | | history | | | | | exists | | + + + + + | Med Mgmt: Na | | 10/05/19 | | | | 0 | 19, | | | | | 06/03/19 | | | | | 19, | | | | | 06/03/19 | | | | | 19, | | | | | Addition | | | | | al | | | | | history | | | | | exists | | + + + + + | Med Mgmt: PLT | | 10/05/19 | | | | 0 | 19, | | | | | 06/03/19 | | | | | 19, | | | | | 06/03/19 | | | | | 19, | | | | | Addition | | | | | al | | | | | history | | | | | exists | | + + + + + | Med Mgmt: RBC | | 10/05/19 | | | | 0 | 19, | | | | | 06/03/19 | | | | | 19, | | | | | 06/03/19 | | | | | 19, | | | | | Addition | | | | | al | | | | | history | | | | | exists | | + + + + + | Med Mgmt: WBC | | 10/05/19 | | | | 0 | 19, | | | | | 06/03/19 | | | | | 19, | | | | | 06/03/19 | | | | | 19, | | | | | Addition | | | | | al | | | | | history | | | | | exists | | + + + + + | Med Mgmt: eGFR | | 10/05/19 | | | | 0 | 19, | | | | | 06/03/19 | | | | | 19, | | | | | 06/03/19 | | | | | 19, | | | | | Addition | | | | | al | | | | | history | | | | | exists | | + + + + + | Vaccine: Influenza | | 01/26/20 | | | (#1) | 0 | 19, | | | | | 02/10/20 | | | | | 18, | | | | | 04/02/20 | | | | | 17, | | | | | Addition | | | | | al | | | | | history | | | | | exists | | + + + + + | Med Mgmt: HDL | | 06/03/19 | | | | 4 | 19, | | | | | 06/03/19 | | | | | 19, | | | | | 10/07/19 | | | | | 18, | | | | | Addition | | | | | al | | | | | history | | | | | exists | | + + + + + | Med Mgmt: LDL | | 06/03/19 | | | | 4 | 19, | | | | | 06/03/19 | | | | | 19, | | | | | 10/07/19 | | | | | 18, | | | | | Addition | | | | | al | | | | | history | | | | | exists | | + + + + + | Med Mgmt: Total | | 06/03/19 | | | Cholesterol | 4 | 19, | | | | | 06/03/19 | | | | | 19, | | | | | 10/07/19 | | | | | 18, | | | | | Addition | | | | | al | | | | | history | | | | | exists | | + + + + + | Med Mgmt: | | 06/03/19 | | | Triglycerides | 4 | 19, | | | | | 06/03/19 | | | | | 19, | | | | | 10/07/19 | | | | | 18, | | | | | Addition | | | | | al | | | | | history | | | | | exists | | + + + + + | Vaccine: | | 10/12/19 | | | Dtap/Tdap/Td (2 - | 0 | 20 | | | Td) | | | | + + + + + Implants + +--------+--------+ +--------+--------+--------+ | Implanted | Type | Area | Manufacture | Device | Shelf | Model | | | | | r | | Expira | / | | | | | | Identi | tion | Serial | | | | | | fier | Date | / Lot | + +--------+--------+ +--------+--------+--------+ | Chago Bone Palacos-R/G 40gm - | Generi | Right: | RAJINDER - | | 11/23/ | 00-111 | | [id number]: Qty: 1 on | c | Knee | ZIMM | | 2018 | 3-140- | | 07/16/2015 by Jordin Fernandez | | | | | | 01 / | | MD Angel at [facility] | | | | | | /[id number] | | [facility] | | | | | | 447 | + +--------+--------+ +--------+--------+--------+ | Imp Knee Stem Femur Nrw Rt | Generi | Right: | RAJINDER - | | | 42-502 | | [id number]: | c | Knee | ZIMM | | 2023 | 0-066- | | Qty: 1 on 07/16/2015 by | | | | | | 02 / | | Jordin Fernandez MD at [facility] | | | | | | /[id number] | | [facility] | | | | | | 551 | | CENTER | | | | | | | + +--------+--------+ +--------+--------+--------+ | Imp Knee Tib 5deg Rt Nick - | Generi | Right: | RAJINDER - | | 06/23/ | 42-532 | | [id number]: Qty: 1 on | c | Knee | ZIMM | | 2025 | 0-071- | | 07/16/2015 by Jordin Fernandez | | | | | | 02 / | | MD Angel at [facility] | | | | | | /[id number] | | [facility] | | | | | | 627 | + +--------+--------+ +--------+--------+--------+ | Imp Knee Ptela Polyeth 35mm - | Generi | Right: | RAJINDER - | | 09/23/ | 42-540 | | [id number]: Qty: 1 | c | Knee | ZIM | | 2022 | 0-000- | | on 07/16/2015 by Jordin Fernandez | | | | | | 35 / | | MD Angel at [facility] | | | | | | /[id number] | | [facility] | | | | | | 366 | + +--------+--------+ +--------+--------+--------+ | Imp Knee Surf Artc Rt 10mm - | Generi | Right: | RAJINDER - | | 06/15/ | 42-522 | | [id number]: Qty: 1 on | c | Knee | ZIMM | | 2019 | 0-005- | | 07/16/2015 by Jordin Fernandez | | | | | | 10 / | | MD Angel at [facility] | | | | | | /[id number] | | [facility] | | | | | | 074 | + +--------+--------+ +--------+--------+--------+ | Angioseal Vip 6f - | Generi | Groin | TERUMO BRADLEY | | 04/25/ | [id number] | | [id number]: Qty: 1 on | c | | - TERU | | 2019 | | | 09/26/2018 by Nivia, | | | | | | /[id number] | | MD Alicia at [facility] | | | | | | 0 | | [facility] | | | | | | /[id number] | | | | | | | | 521 | + +--------+--------+ +--------+--------+--------+ | Screw Hex 2.5x25mm - | Screw | Right: | RAJINDER - | | | 42-509 | | [id number]: Qty: 1 on | | Knee | ZIMM | | | 9-025- | | 07/16/2015 by Jordin Fernandez | | | | | | 25 / / | | MD Angel at [facility] | | | | | | | | [facility] | | | | | | | + +--------+--------+ +--------+--------+--------+ | Promus Premier Drug Eluting | Stent | N/A: | [place] | | 08/03/ | / | | Coronary Stent | | Heart | SCIENTIFIC | | 2016 | /[id number] | | SystemImplanted: Qty: 1 on | | | BRADLEY - BSCI | | | 220 | | 07/27/2015 by Bradley | | | | | | | | Иван Kaur MD at [facility] | | | | | | | | [facility] [place] | | | | | | | | [facility] | | | | | | | + +--------+--------+ +--------+--------+--------+ Results Not on filefrom Last 3 Months Insurance + +--------+ +--------+ +---------+--------+ | Payer | Benefi | Subscriber | Effect | Phone | Address | Type | | | t Plan | ID | justin | | | | | | / | | Dates | | | | | | Group | | | | | | + +--------+ +--------+ +---------+--------+ | MEDICARE | MEDICA | [id number] | | [phone] | | Medica | | | RE | | 011-Pr | 5 | | re | | | PART A | | esent | | | | | | AND B | | | | | | + +--------+ +--------+ +---------+--------+ | MEDICARE | MEDICA | [id number] | | [phone] | | Medica | | | RE | | 011-Pr | 5 | | re | | | PART A | | esent | | | | | | AND B | | | | | | + +--------+ +--------+ +---------+--------+ | [employer]AN | MODA | [id number] | 01/03/20 | [phone] | | Medica | | MEDICAID HMO | HEALTH | | 19-Pre | 1 | | id | | | MDCD | | sent | | | | | | [place]MO [place] | | | | | | + +--------+ +--------+ +---------+--------+ | [employer]AN | MODA | [id number] | | [phone] | | Medica | | MEDICAID HMO | HEALTH | | 020-Pr | 1 | | id | | | MDCD | | esent | | | | | | [place]MO [place] | | | | | | + +--------+ +--------+ +---------+--------+ + +--------+ +--------+ + + | Guarantor Name | Accoun | Relation to | Date | Phone | Billing Address | | | t Type | Patient | of | | | | | | | | | | + +--------+ +--------+ + + | Le Rollins | Person | Self [birth year] | [address] | | | al/Fam | | 1945 | [phone] | [address], | | | [place] | | | [address] (Home) | [place] [address] | + +--------+ +--------+ + + | Le Rollins | Person | Self | [birth year] | [address] | | | al/Fam | | 1945 | [phone] | [address], | | | [place] | | | [address] (Home) | [place] [address] | + +--------+ +--------+ + + Advance Directives + + + + + | Type | Date Recorded | Patient | Explanation | | | | Siebel Developer | | + + + + + | Power of | | | | | Remelter | | | | + + + + + | Power of | | | | | Remelter | | | | + + + + + | Advance | 05/07/2018 1:08 | | | | Directive | PM | | | + + + + + | Advance | 08/06/2017 12:14 | | | | Directive | PM | | | + + + + + + + + + + | Code Status | Date | Date | Comments | | | Activated | Inactivated | | + + + + + | Full Code | 07/11/2017 | 07/12/2017 | | | | 6:04 PM | 8:07 PM | | + + + + + + + + +---+ | | | | | + + + +---+ | Full Code | 07/26/2015 | 07/28/2015 | | | | 4:59 PM | 3:41 PM | | + + + +---+ + + + +---+ | | | | | + + + +---+ | Full Code | 07/16/2015 | 07/19/2015 | | | | 2:47 PM | 12:59 PM | | + + + +---+
--- OUTSIDE RECORDS SUMMARY | ~2020-02-03 | XMS | Encounter Summary ---
Demographics + + + | Address | [address] | | | [place] [address] | + + + | Home Phone | | + + + | Preferred Language | Unknown | + + + | Marital Status | Single | + + + | Amish Affiliation | 1013 | + + + | Race | White | + + + | Ethnic Group | Not or | + + + Author + + + | Author | [facility] | | | and [place] | + + + | Organization | [facility] | | | [...] Team Providers + +------+ + | Care Lacquer Coater Name | Role | Phone | + +------+ + | Wilson Lin MD | PCP | | + +------+ + Encounter Details +--------+ + + + + | Date | Type | Department | Care Team | Description | +--------+ + + + + | 09/30/ | Orders Only | [facility] | [facility] | | | 2016 | | CONVERSION 888 | MD Iraj [address] | | | | [address] | [address] [facility] [address] | | | | | [place], [place] | [place] [address] | | | | | [address] | [phone] | | | | | [phone] | | | +--------+ + + + [...] + | ECHO INTERPRETATION | Routin | 10/01/2015 | | Results for this | | OF OUTSIDE FILMS | e | 1:56 PM | | procedure are in the | | | | PDT | | results section. | + +--------+ + + + documented in this encounter Results ECHO Interpretation of Outside Films (10/01/2015 1:56 PM PDT) + + | Specimen | + + | | + + + + + | Impressions | Performed At | + + + | 1. See Dictation. Sinus rhythm. 2. Degenerative Valvular Heart | | | Disease. Moderate calcific /mild AI (calc ARISTIDES 1.2cm2, peak/mean | | | gradients 25/16mmHg). Mitral valve has mild nodular calcification, | | | trace MR. Tricuspid valve grossly NML, mild TR. Pulmonic valve not | | | seen well. 3. Borderline concentric LVH, systolic function NML, | | | Grade 1 diastolic abnormality, LVEF >70%. Mild LAE. RA/RV NML. 4. | | | No Pericardial effusion. 5. IVC appears NML, est systolic PAP | | | 23-28mmHg. | | + + + + + + | Narrative | Performed At | + + + | Patient Name: Le Rollins Date of : 1945 | | | Performing Physician: Denny Pardo DO | | | | | | INDICATIONS CVA CONCLUSIONS 1. See | | | Dictation. Sinus rhythm. 2. Degenerative Valvular Heart Disease. | | | Moderate calcific /mild AI (calc ARISTIDES 1.2cm2, peak/mean gradients | | | 25/16mmHg). Mitral valve has mild nodular calcification, trace MR. | | | Tricuspid valve grossly NML, mild TR. Pulmonic valve not seen | | | well. 3. Borderline concentric LVH, systolic function NML, Grade 1 | | | diastolic abnormality, LVEF >70%. Mild LAE. RA/RV NML. 4. No | | | Pericardial effusion. 5. IVC appears NML, est systolic PAP 23-28mmHg. | | | FINDINGS -------- ECG rhythm: Sinus rhythm. Study: This was a | | | technically adequate study. Left Ventricle: Left ventricular systolic | | | function is hyperdynamic with an estimated EF of >70%. Left | | | Ventricle: The left ventricle cavity size is normal. Left Ventricle: | | | Left ventricular wall thickness is normal. Left Ventricle: The | | | diastolic filling pattern indicates impaired relaxation consistent | | | with mild dysfunction (Grade I). Right Ventricle: The right ventricle | | | is normal in size and function. Left Atrium: The left atrium is | | | mildly enlarged. Right Atrium: The right atrium is normal in size. | | | Aortic Valve: The aortic valve is moderately calcified. Aortic Valve: | | | There is no evidence of aortic regurgitation. Aortic Valve: Moderate | | | aortic stenosis with peak/mean pressure gradient of 25/16mmHg, the | | | aortic valve area by continuity equation is 1.2cm2. 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 Mitral Valve: | | | There is trace mitral regurgitation. Tricuspid Valve: The tricuspid | | | valve appears structurally normal. Tricuspid Valve: Mild tricuspid | | | regurgitation present. Pulmonic Valve: The pulmonic valve was not | | | well visualized. Pericardium: There is no pericardial effusion. | | | IVC/Hepatic Veins: The IVC is small (<1.5cm) and collapses with sniff, | | | consistent with central venous pressures of 0-5mmHg. MEASUREMENTS | | | Sports Broadcaster: DBS Authenticated by: Denny Pardo | | | DO Report Date/Time: -- [id number]:[id number] | | + + + + + | Procedure Note | + + | Maurice, Rad Conversion - 12/15/2018 9:15 PM PDT Patient Name: Lindsay Rollins of | | : 1945 Performing Physician: Denny Pardo | | DO INDICATIONS C | | [place] CONCLUSIONS 1. See Dictation. Sinus rhythm.2. Degenerative Valvular Heart | | Disease. Moderate calcific /mild AI (calc ARISTIDES 1.2cm2, peak/mean gradients 25/16mmHg). | | Mitral valve has mild nodular calcification, trace MR. Tricuspid valve grossly NML, | | mild TR. Pulmonic valve not seen well. 3. Borderline concentric LVH, systolic function | | NML, Grade 1 diastolic abnormality, LVEF >70%. Mild LAE. RA/RV NML. 4. No Pericardial | | effusion. 5. IVC appears NML, est systolic PAP 23-28mmHg. FINDINGS--------ECG rhythm: | | Sinus rhythm.Study: This was a technically adequate study.Left Ventricle: Left | | ventricular systolic function is hyperdynamic with an estimated EF of >70%.Left | | Ventricle: The left ventricle cavity size is normal.Left Ventricle: Left ventricular | | wall thickness is normal.Left Ventricle: The diastolic filling pattern indicates | | impaired relaxation consistent with mild dysfunction (Grade I).Right Ventricle: The | | right ventricle is normal in size and function.Left Atrium: The left atrium is mildly | | enlarged.Right Atrium: The right atrium is normal in size.Aortic Valve: The aortic valve | | is moderately calcified.Aortic Valve: There is no evidence of aortic | | regurgitation.Aortic Valve: Moderate aortic stenosis with peak/mean pressure gradient of | | 25/16mmHg, the aortic valve area by continuity equation is 1.2cm2.Mitral Valve: Mitral | | valve is thickened with nodular degeneration.Mitral Valve: There is trace mitral | | regurgitation.Tricuspid Valve: The tricuspid valve appears structurally normal.Tricuspid | | Valve: Mild tricuspid regurgitation present.Pulmonic Valve: The pulmonic valve was not | | well visualized.Pericardium: There is no pericardial effusion.IVC/Hepatic Veins: The IVC | | is small (<1.5cm) and collapses with sniff, consistent with central venous pressures of | | 0-5mmHg. MEASUREMENTS Sports Broadcaster: DBSAuthenticated by: Denny Pardo | | Franky Date/Time: -- [id number] IMPRESSION: 1. See Dictation. Sinus | | rhythm.2. Degenerative Valvular Heart Disease. Moderate calcific /mild AI (calc ARISTIDES | | 1.2cm2, peak/mean gradients 25/16mmHg). Mitral valve has mild nodular calcification, | | trace MR. Tricuspid valve grossly NML, mild TR. Pulmonic valve not seen well. 3. | | Borderline concentric LVH, systolic function NML, Grade 1 diastolic abnormality, LVEF | | >70%. Mild LAE. RA/RV NML. 4. No Pericardial effusion. 5. IVC appears NML, est | | systolic PAP 23-28mmHg. 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 | |Mitral Valve: There is trace mitral regurgitation. | |Tricuspid Valve: The tricuspid valve appears structurally normal. | |Tricuspid Valve: Mild tricuspid regurgitation present. | |Pulmonic Valve: The pulmonic valve was not well visualized. | |Pericardium: There is no pericardial effusion. | |IVC/Hepatic Veins: The IVC is small (<1.5cm) and collapses with sniff, consistent with cent ral venous pressures of 0-5mmHg. | | | |MEASUREMENTS | | | | | |Sports Broadcaster: LAITH | |Authenticated by: Denny Pardo DO | |Report Date/Time: -- [id number]:47:10 | | | |IMPRESSION: | |1. See Dictation. Sinus rhythm. | |2. Degenerative Valvular Heart Disease. Moderate calcific /mild AI (calc ARISTIDES 1.2cm2, pea k/mean gradients 25/16mmHg). Mitral valve has mild nodular calcification, trace MR. Tricus pid valve grossly NML, mild TR. Pulmonic valve not seen well. 3. | |Borderline concentric LVH, systolic function NML, Grade 1 diastolic abnormality, LVEF >70%. Mild LAE. RA/RV NML. 4. No Pericardial effusion. 5. IVC appears NML, est systolic PAP 23- 28mmHg. | + + documented in this encounter Visit Diagnoses Not on filedocumented in this encounter"
--- OUTSIDE RECORDS SUMMARY | ~2020-02-03 | XMS | Encounter Summary ---
Demographics + + + | Address | [address] | | | [place] [address] | + + + | Home Phone | | + + + | Preferred Language | Unknown | + + + | Marital Status | Single | + + + | Synagogue Affiliation | 1013 | + + + [...] Team Providers + +------+ + | Care Clin Tech Name | Role | Phone | + +------+ + | Wilson Lin MD | PCP | | + +------+ + Reason for Visit +---------+--------+ + | Reason | Onset | Comments | | | Date | | +---------+--------+ + | Results | 10/06/ | | | | 2019 | | +---------+--------+ + Encounter Details +--------+ + + + + | Date | Type | Department | Care Team | Description | +--------+ + + + + | 10/06/ | Telephone | [facility] | Maral Alfonso, | Results | | 2019 | | CARDIOLOGY [address] | [facility]IST PHOTOGRAPHY [address] | | | | | [place], | [place], [place] | | | | | [place] [address] | [address] | | | | | [phone] | | | +--------+ + + + [...] Telephone Encounter - Indu Gómez RN - 10/10/2018 2:20 PM PDTAppointment has been ca ncelled ...........................................Indu Gómez RN on 10/10/18 at 14:20 elephone Encounter - Maral Alfonso ARNP - 10/07/2018 12:47 PM PDTIt looks like she maybe still has an appoin tment on the books in October with us, and if that is the case, please go ahead and cancel that . Thank you! ...........................................Maral VasylNICOLE Galaviz on 10/07/18 a t 12:47 elephone Encounter - Lula Huff RN - 10/07/2018 9:25 AM PDTSpoke with patient and she is doing well. Tami anks us for the information regarding the monitor. She has a follow up appt with Dr. Guadalupe today and will be referred to cardiac rehab in [place]. She [place] and is now in an assisted living facility. She is no longer going to see Dr. Madden as her PCP and will be seeing Dr. Anders in [place]. She states she has been so pl eased with the care she has received from Maral but due to travel restraints, she will follow up with Dr. Guadalupe for her cardiac care and will not be returning to [place] for doctor s' appointments. She asked me to thank Maral for everything she has done for her. Routing not e to Maral Alfonso...............................................Lula Huff RN on 9 at 9:31 elephone Encounter - Annel Mcgraw RN - 10/06/2018 3:35 PM PDTMessage left for call back. elephone Encounter - Maral Alfonso ARNP - 10/06/2018 9:54 AM PDTPlease let her know that we have her monitor results com pleted and no further events of the very fast concerning heart rate, and no atrial fibrillat ion during the monitoring period. It looks like her stent earlier this week went well with Srinath Guadalupe. ( 10/04/18 status post PTCA supported stenting of right coronary artery with 3.0 x 16 mm Synergy drug-eluting stent was done without immediate complications at [facility] by Teresa Guadalupe MD) She is not currently scheduled for follow up until next month, so please see if she is interested in coming in sooner for follow up, such as next w [place] to review her monitor in detail and see how she is feeling post stent? You could have my 11:30 next Wednesday be seen by Maribel Smart PA-C instead of me and have this patient be see n by me at that time slot? Thanks! ...........................................NICOLE Us on 10/06/18 at 10:01 10 :04 AM PDTdocumented in this encounter Plan of Treatment Not on filedocumented as of this encounter Visit Diagnoses Not on filedocumented in this encounter"
--- OUTSIDE RECORDS SUMMARY | ~2020-02-03 | XMS | Encounter Summary ---
Demographics + + + | Address | [address] | | | [place] [address] | + + + | Home Phone [...] + + + | Author | Formerly [facility] | | | and [place] | + + + | Organization | [facility] | | [...] Team Providers + +------+ + | Care Wind Operations Manager Name | Role | Phone | + +------+ + PCP | Unavailable | + +------+ + Reason for Visit + + + | Reason | Comments | + + + | New Patient | | + + + | Aortic Stenosis | | + + + | Hypertension | | + + + Evaluate & Treat (Routine) +--------+--------+ + + + + | Status | Reason | Specialty | Diagnoses / | Referred By | Referred To | | | | | Procedures | Contact | Contact | +--------+--------+ + + + + | Closed | | Cardiology | Diagnoses | Madden, | [facility] | | | | | Aortic | Ole D, | Cardiology | | | | | stenosis | DO [address] | | | | | Procedures | [address] | [place], | | | | | [employer] RECEIVER | [place], | [place] | | | | | | [place] | [address] | | | | | | [address] | Phone: | | | | | | Phone: | [phone] | | | | | | [phone] | Fax: | | | | | | Fax: | [phone] | | | | | | [phone] | | +--------+--------+ + + + + Encounter Details +--------+---------+ + + + | Date | Type | Department | Care Team | Description | +--------+---------+ + + + | 10/08/ | Office | [facility] | Maria Teresa Gonzáles, | Hypertension, | | 2017 | Visit | CARDIOLOGY [address] | unspecified type | | | | [place], | [place], | (Primary Dx) | | | | [place] [address] | [place] [address] | | | | | [phone] | [phone] | | | | | | | [...] + + + | Blood Pressure | 122/68 | 10/08/2017 10:52 AM | left | | | | PDT | | + + + + + | Pulse | 59 | 10/08/2017 10:51 AM | | | | | PDT | | + + + + + | Temperature | - | - | | + + + + + | Respiratory Rate | 16 | 10/08/2017 10:51 AM | | | | | PDT | | + + + + + | Oxygen Saturation | - | - | | + + + + + | Inhaled Oxygen | - | - | | | Concentration | | | | + + + + + | Weight | 67.4 kg (148 lb 9.4 | 10/08/2017 10:51 AM | | | | oz) | PDT | | + + + + + | Height | 162.6 cm (5' 4") | 10/08/2017 10:51 AM | | | | | PDT | | + + + + + | Body Mass Index | 25.51 | 10/08/2017 10:51 AM | | | [...] of this encounter Patient Instructions Patient Instructions Indu Gómez RN - 10/08/2017 11:00 AM PDT Stop Plavix (Clopidogrel) Start Eliquis (Apixaban) 5mg -take one tablet by mouth twice daily Follow up appointment: 6 months Provider: Maria Treesa Gonzáles MD Date: Check-In Time: documented in this encounter Progress Notes Maria Teresa Gonzáles MD - 10/08/2017 11:00 AM PDTFormatting of this note might be different f rom the original. PATIENT NAME: Le Rollins : 1945: AGE: 72 y.o. REFERRED BY: Ole Madden PRIMARY CARE: Ole Madden DO NEW PATIENT OFFICE VISIT Date of Service: 10/08/17 HISTORY OF PRESENT ILLNESS: Le Rollins is a 72 y.o. female with a history of coronary artery disease, aortic genia nosis, paroxysmal atrial fibrillation, peripheral vascular disease, type II diabetes mellitu s, obstructive sleep apnea, hypertension and hyperlipidemia. She is being seen today for ao rtic stenosis, atrial fibrillation and coronary artery disease. Today, patient is feeling good. Patient is physically active walking half a mile and uses new step machine for 20 minutes every day. There is no chest pain or chest discomfort both a t rest and on exertion. Patient denies breathlessness. There is no palpitation dizziness o r lightheadedness. There is no ankle or leg swelling. Patient can sleep on one pillow at n ight without difficulty breathing. CURRENT PROBLEMS Patient Active Problem List Diagnosis Numbness and tingling in right hand DDD (degenerative disc disease), cervical Rotator cuff tear, right Mixed sleep apnea Obesity Essential hypertension with goal blood pressure less than 130/80 Diabetes type 2, controlled Asthma Murmur, cardiac Chest pain Coronary artery calcification seen on CAT scan NSTEMI (non-ST elevated myocardial infarction) Aortic valve stenosis Fibromyalgia Stenosis of right carotid artery Chronic ischemic heart disease Coronary arteriosclerosis in [place] artery Cerebral infarction Hyperlipidemia Hypothyroidism Cerebral artery occlusion Heart valve disease NEHEMIAH (obstructive sleep apnea) UGI bleed Anastomotic ulcer S/P gastric bypass Acute blood loss anemia Anemia Hepatitis Family history of type II diabetes mellitus Osteoarthritis MEDICAL, SURGICAL, AND PERSONAL HISTORY Past Surgical History: Procedure Laterality Date ABDOMEN SURGERY APPENDECTOMY 1958 CARDIAC CATHERIZATION N/A 07/27/2015 Procedure: CV DIAGNOSTIC CARDIAC CATH; Surgeon: Иван Kaur MD; Location: [facility] CARDIO VASCULAR LAB CHOLECYSTECTOMY 1988 COLONOSCOPY fiberoptic coronary artery surgery GASTRIC BYPASS SURGERY 2011 HYSTERECTOMY, TOTAL ABDOMINAL 1973 left breast lumpectomy right carotid stent 10/09 right knee arthroscopy 1989 THYROIDECTOMY 2004 THYROIDECTOMY, PARTIAL 1985 TONSILLECTOMY AND ADENOIDECTOMY 1950 TOTAL KNEE ARTHROPLASTY Right 07/16/2015 Procedure: Right Total Knee Arthroplasty; Surgeon: Jordin Fernandez MD; Location: [facility] MAIN OR UPPER GASTROINTESTINAL ENDOSCOPY N/A 07/12/2017 Procedure: EGD; Surgeon: Venkatesh Liz MD; Location: [facility] MEDICAL PROCEDURE UNIT UVULOPALATOPHARYGOPLASTY 1987 Family History Problem Relation Age of Onset Heart disease Father coronary artery disease Other (see comment) Son obese Hypertension Mother Sleep Apnea Mother Heart disease Brother Cancer Son leukemia Diabetes Brother Elevated lipids Brother Family Status Relation Status Father at age 90 heart Son Alive Mother at age 84 Unknown Brother Alive Son at age 43 Leukemia Brother Alive Social History Social History Marital status: Single Spouse name: N/A Number of children: N/A Years of education: BS 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 100 tablet aspirin 81 MG tablet Take 2 tablets by mouth Daily. 56 tablet 0 atorvaSTATin (LIPITOR) 80 MG tablet Take 80 mg by mouth nightly. busPIRone (BUSPAR) 5 mg tablet Take 5 mg by mouth 2 times daily. calcium-vitamin D (OSCAL) 500 mg-200 units per tablet Take 1 tablet by mouth Daily. clopidogrel (PLAVIX) 75 mg tablet Take 1 tablet by mouth Daily. 100 tablet 0 cyanocobalamin (VITAMIN B-12) 1000 MCG tablet Take 1,000 mcg by mouth Daily. diclofenac (VOLTAREN) 1% GEL Apply 1 g topically 2 times daily. DULoxetine (CYMBALTA) [address] capsule Take [...] by mouth Daily. 30 tablet 0 levothyroxine (SYNTHROID) 175 MCG tablet Take 175 mcg by mouth every morning (before br eakfast). lisinopril-hydrochlorothiazide (PRINZIDE,ZESTORETIC) 20-25 MG per tablet Take 1 tablet by mouth Daily. Magnesium 500 MG tablet Take 500 mg by mouth Daily. meclizine (ANTIVERT) 25 mg tablet Take 1 tablet by mouth 3 times daily as needed. 20 ta blet 0 metFORMIN (GLUCOPHAGE-XR) 500 mg 24 hr tablet Take 500 mg by mouth Daily (with dinner). Multiple Vitamins-Minerals (MULTIVITAMIN PO) Take 1 tablet by mouth Daily. nitroglycerin (NITROSTAT) 0.[address] 1 tablet under the tongue every 5 thaddeus soledad as needed for Chest pain. 25 tablet 0 pantoprazole (PROTONIX) 40 mg tablet Take 1 tablet by mouth 2 times daily (before meals ). 84 tablet 1 UNABLE TO FIND Med Name: Resmed AirSense 10 autoset CPAP: 5-20cm while sleeping. No current facility-administered medications for this visit. ALLERGIES Allergies Allergen Reactions Aripiprazole Bee Venom Clonidine Derivatives Insulin Glargine Insulin Lispro Shellfish-Derived Products Statins Patient could not remember which statin caused her problems. She tolerates atorvastatin f ine ROS Review of Systems Constitutional: Negative for chills, diaphoresis, fever, malaise/fatigue and weight loss. HENT: Negative for congestion, hearing loss, nosebleeds and tinnitus. Dental Problems = No Eyes: Negative for blurred vision and double vision. Respiratory: Positive for shortness of breath. Cardiovascular: Negative for chest pain, palpitations and leg swelling. Gastrointestinal: Positive for diarrhea. Negative for blood in stool, constipation, nausea and vomiting. Genitourinary: Negative for dysuria, frequency, hematuria and urgency. Musculoskeletal: Positive for joint pain (arthritis). Negative for back pain, falls, myalgi as and neck pain. Gait Problems = No Skin: Negative for itching and rash. Neurological: Positive for loss of consciousness. Negative for dizziness, tingling, tremors , speech change, seizures and weakness. Lightheaded = No Endo/Heme/Allergies: Does not bruise/bleed easily. Psychiatric/Behavioral: Negative for memory loss. The patient is not nervous/anxious and do es not have insomnia. OBJECTIVE: PHYSICAL EXAM BP 122/68 Comment: left | Pulse 59 | Resp 16 | Ht 1.626 m (5' 4") | Wt 67.4 kg (148 lb 9 .4 oz) | BMI 25.51 kg/m Physical Exam Constitutional: She is oriented to person, place, and time. She appears well-developed and well-nourished. No distress. Female individual arrives alone, without acute distress. HENT: Head: Normocephalic. Eyes: Lids are normal. Neck: Normal carotid pulses, no hepatojugular reflux and no JVD present. Carotid bruit is n ot present. Cardiovascular: Normal rate, regular rhythm, normal heart sounds and normal pulses. PMI is not displaced. Exam reveals no gallop, no S3 and no S4. No murmur heard. Pulses: Carotid pulses are 2+ on the right side, and 2+ on the left side. Radial pulses are 2+ on the right side, and 2+ on the left side. Femoral pulses are 2+ on the right side, and 2+ on the left side. Dorsalis pedis pulses are 2+ on the right side, and 2+ on the left side. Posterior tibial pulses are 2+ on the right side, and 2+ on the left side. Grade 2/6 systolic ejection murmur along the right upper sternal border. Pulmonary/Chest: Effort normal and breath sounds normal. No accessory muscle usage. No resp iratory distress. She has no wheezes. She has no rhonchi. She has no rales. Abdominal: Normal appearance. There is no hepatosplenomegaly. There is no tenderness. Musculoskeletal: She exhibits no edema. Neurological: She is alert and oriented to person, place, and time. Gait normal. Skin: Skin is warm and dry. No cyanosis. Nails show no clubbing. Psychiatric: She has a normal mood and affect. Her mood appears not anxious. She does not e xhibit a depressed mood. ECG: Sinus bradycardia, otherwise normal ECG. LAB RESULTS: LIPID Lab Results Component Value Date CHOL 151 10/06/2017 TRIG 64 10/06/2017 HDL 86 (H) 10/06/2017 LDL 52 10/06/2017 CHOLHDL 1.8 10/06/2017 CHEMISTRY Lab Results Component Value Date GLU 153 (H) 08/06/2017 NA 134 (L) 08/06/2017 K 3.7 08/06/2017 CL 100 08/06/2017 CO2 28 08/06/2017 CALCIUM 8.6 08/06/2017 ALKPHOS 114 (H) 08/06/2017 AST 39 08/06/2017 ALT 30 08/06/2017 BILITOT 0.8 08/06/2017 CREA 0.83 08/06/2017 BUN 13 08/06/2017 HEMATOLOGY Lab Results Component Value Date WBC 5.5 08/06/2017 HGB 11.9 08/06/2017 HCT 37.1 08/06/2017 PLT 235 08/06/2017 I reviewed records from Ole Madden DO for office visit . Refer to store lead. ASSESSMENT: 1. Coronary artery disease A. Echocardiogram 07/26/2014 shows normal left ventricular size, wall thickness and motion, preserved left ventricular systolic function, LVEF is 70-75%, there is evidence of a sigmoid septum, mildly thickened and calcified trileaflet aortic valve with mild calcific aortic va lve stenosis, there is mild aortic valve insufficiency, mild mitral valve regurgitation, mil d tricuspid valve regurgitation, normal right-sided pressure, normal IVC with normal respira tory collapse. B. Echocardiogram 07/26/2015 shows Normal LV size and systolic function with LVEF 70%, aorti c valve sclerosis with mild to moderate stenosis and mild insufficiency, mild pulmonary syst olic hypertension, compared to patient's prior study of one year ago, no significant changes are noted. Juan Muro MD C. C 07/27/2015 shows moderate obstructive coronary artery disease with 90% stenosis of th e mid OMB2, there is a right dominate circulation, normal LV systolic function with an EF of 70%, systemic blood pressure is mildly elevated, there was successful hemostasis with a TR hemostatic band, NSTEMI due to subtotal occlusion of the OMB2. D. Echocardiogram 09/30/2015 shows Sinus rhythm, degenerative Valvular Heart Disease, modera te calcific /mild AI (calc ARISTIDES 1.2cm2, peak/mean gradients 25/16mmHg), mitral valve has mi ld nodular calcification, trace MR, tricuspid valve grossly NML, mild TR, pulmonic valve not seen well, borderline concentric LVH, systolic function NML, grade 1 diastolic abnormality, LVEF >70%, mild LAE, RA/RV NML, no pericardial effusion, IVC appears NML, est systolic PAP 23-28mmHg. Denny MCCRACKEN. Today, patient is doing well from cardiac standpoint. He is asymptomatic and physicall y active. There is no signs and symptoms of overt congestive heart failure. He is in a cla ss I of [place] [employer] functional class. There is no fluid retention on physica l examination. 2. Aortic stenosis A. CT Angiogram neck w contrast 10/04/2015 limited examination secondary to motion artifact , 60% distal common and 55% proximal right internal carotid artery stenosis, 20% distal left common carotid artery stenosis, 50% left vertebral artery stenosis secondary to cervical sp ondylosis, 50% right and 65% left subclavian artery stenosis. Robert Sepulveda M.D. B. Echocardiogram 08/08/2016 shows the left ventricle is normal in size, wall thickness and systolic function EF 60-65%, the diastolic filling pattern indicates impaired relaxation co nsistent with mild dysfunction (Grade I), the aortic valve is moderately calcified with mode rate aortic stenosis and mild regurgitation, mild mitral regurgitation with mildly enlarged left atrium, mild tricuspid regurgitation with no pulmonary hypertension, there is none/triv ial pericardial effusion. Mershed Alsamara. C. She is completely asymptomatic at this time. 3. Paroxysmal atrial fibrillation A. 2 week event monitor 04/15/2017 shows predominantly in sinus rhythm with a total burden of bradycardia 22 percent and an average heart rate of 62 with a range of 51-85 bpm. Arrhyt hmias noted were rare PACs and PVCs with a total of 21 episodes of paroxysmal supraventricul ar tachycardia, some consistent with atrial fibrillation with a longest 28 beats Her risks for stroke include: Hx of HTN (1), Stroke/TIA/Thrombo-embolism (2), Vascular dis ease (1), Age 65 to 74 (1) and Female Gender (1). Her [id number] score is 6, which gives a n estimated 9.8% risk of stroke per year in atrial fibrillation. Her bleeding risks include : HTN (1) and >64 YO (1) . Her HASBLED score is 2-3, which confers an intermediate risk (4. 1-5.8%) risk of bleed per year. Despite a history of recent upper GI bleeding, she does not have active bleeding at this t alessia. She should be on blood thinner. 4. Peripheral vascular disease A. Right side carotid stent 10/18/2015. 4. Hypertension A. Todays blood pressure is well controlled. 5. Peptic ulcer disease /Syncope/GI bleeding 6. Type II diabetes mellitus A. She is on metformin. 7. Obstructive sleep apnea A. Patient wears CPAP machine every night. 8. History of stroke A. She stated that she has tablet stroke 2 in the past. PLAN: 1. I spend time at length talking about natural course, treatment and prognosis of atrial f ibrillation, coronary artery disease and aortic stenosis. 2. Stop plavix to minimize risk of bleeding. 3. Start Eliquis 5 mg twice a day to minimize risk of stroke. Patient will check with GI do ctor. 4. I recommend a therapeutic lifestyle change including walking 30 minutes a day and choosi ng healthy choices of diet. 5. Follow up in 6 months or sooner with concerns. Sunitha Brown am acting as a scribe on behalf of, and in the presence of Maria Teresa Gonzáles MD. I have reviewed and edited this note. Sunitha Brown, Set Up Machinist 10/08/2017 I, Maria Teresa Gonzáles MD, personally performed the services described in this documentation, as scribed in my presence and it is both accurate and complete. Sunitha A Meza, Med Ass t 10/08/2017 10:58 Electronically signed by: Maria Teresa Gonzáles MD [facility] 10/08/2017 Portions of this chart may have been created with [employer] voice recognition software. Occasi onal wrong-word or [...] | ECG 12 LEAD | Routin | 10/08/2017 | Hypertension, | Results for this | | | e | 10:48 AM | unspecified type | procedure are in the | | | | PDT | | results section. | + +--------+ + + + documented in this encounter Results ECG 12 lead (10/08/2017 10:48 AM PDT) + + + + + [...] + + + + | Q-T | 438 | ms | [facility] | | | INTERVAL | | | | | + + + + + + | Q-T | 433 | ms | [facility] | | | INTERVAL | | | | | | (CORRECTED) | | | | | + + + + + + | P WAVE AXIS | 69 | degrees | [facility] | | + + + + + + | QRS AXIS | 58 | degrees | [facility] | | + + + + + + | T AXIS | 59 | degrees | [facility] | | + + + + + + | INTERPRETAT | Sinus | | [facility] | | | ION TEXT | bradycardiaOtherwise | | | | | | normal ECGWhen compared | | | | | | with ECG of 06-AUG-2017 | | | | | | 09:50,No significant | | | | | | change was | | | | | | foundConfirmed by | | | | | | SAIGE WEBBER, MARIA TERESA | | | | | | ([id number]) on 10/08/2017 | | | | | | 3:49:50 PM | | | | + + [...] + | Diagnosis | + + | Hypertension, unspecified type - Primary | + + documented in this encounter
--- OUTSIDE RECORDS SUMMARY | ~2020-02-03 | XMS | Encounter Summary ---
Demographics + + + | Address | [address] | | | [place] [address] | + + + | Home Phone | | + + + | Preferred Language | Unknown | + + + | Marital Status | Single | + + + | Anabaptism Affiliation | [id number] | + + + [...] Team Providers + +------+ + | Care Boiler Control Technician Name | Role | Phone | + +------+ + | Wilson Lin MD | PCP | | + +------+ + Reason for Visit + + + | Reason | Comments | + + + | Chest Pressure | | + + + Encounter Details +--------+ + + + + | Date | Type | Department | Care Team | Description | +--------+ + + + + | 07/31/ | Emergency | [facility] | Phillip Tadeo, | Chest pain at rest | | 2016 | | [facility] | [address] | (Primary Dx) | | | | CENTER [address] | [place], [place] | | | | | [place], [place] | [address] | | | | | [address] | | | | | | [phone] | John Mark MD | | | | | | [address] | | | | | | [place], [place] | | | | | | [address] | | | | | | | [...] + + + | Blood Pressure | 146/44 | 08/01/2015 8:10 AM | | | | | PDT | | + + + + + | Pulse | 65 | 08/01/2015 8:10 AM | | | | | PDT | | + + + + + | Temperature | 36.5 C (97.7 F) | 08/01/2015 4:51 AM | | | | | PDT | | + + + + + | Respiratory Rate | 16 | 08/01/2015 8:10 AM | | | | | PDT | | + + + + + | Oxygen Saturation | 96% | 08/01/2015 8:10 AM | | | | | PDT | | + + + + + | Inhaled Oxygen | - | - | | | Concentration | | | | + + + + + | Weight | 72.6 kg (160 lb) | 08/01/2015 4:51 AM | | | | | PDT | | + + + + + | Height | 165.1 cm (5' 5") | 08/01/2015 4:51 AM | | | | | PDT | | + + + + + | Body Mass Index | 26.63 | 08/01/2015 4:51 AM | | | | | PDT [...] Discharge Instructions Instructions John Mark MD - 08/01/2015Long acting nitrate to help with chest pain is prescribed Increase metoprolol to 1 full tablet 2 times a day (25 mg) Rest and fluids Return for worsening symptoms, not improving, other new complaints documented in this encounter Medications at Time [...] documented as of this encounter ED Notes Veda Negro RN - 08/01/2015 10:33 AM PDTDischarged in stable condition.Electronical ly signed by Veda Negro RN at 08/01/2015 10:33 AM PDTJohn Mark MD - 08/01/2015 6:41 AM PDT I received this patient in signout from Dr. Tadeo. Plan is to follow-up on second tropon in as well as CT angiogram. CT Angiogram does not reveal any acute pulmonary embolus or other acute intrathoracic cause for her pain Troponin 0.02 MB [address] Huerta of cardiology. Given the negative troponins and MB he recommends we start her on Imdur and increase her metoprolol. Otherwise plan for discharge. I discus sed with her the lymphadenopathy found on CT scan, she was aware of that from having a scan at an outside hospital and she is following with her primary care doctor about that. John Mark MD 08/01/15 1002 Phillip Salomon MD - 08/01/2015 4:50 AM PDTFormatting of this note might be different from the hill gio. [facility] Emergency Department Encounter Note [address] [place] [id number] PCP:Wilson Lin MD [phone] CHIEF COMPLAINT: Chief Complaint Patient presents with Chest Pressure ED Room: ED05/ED05 ED Triage Notes Scar Silva RN 08/01/2015 4:53 States chest pressure since 0230, states pain radiated to left shoulder and left neck. Stat es pain started out as a grabbing pressure that went up into her head and face. Denies SOB o r N/V at this time. 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 Patien t had a stent placed on Wednesday at this facility by Dr. Huerta. Original note by Scar Silva RN at 08/01/2015 4:51 Scar Silva RN 08/01/2015 4:51 States chest pressure since 0230, states pain radiated to left shoulder and left neck. Stat es pain started out as a grabbing pressure that went up into her head and face. Denies SOB o r N/V at this time. HOUSEH[employer] APPLI[employer] MECH[employer]IC meds include NTG x 4, Morphine x 6mg, zofran 4 mg, ASA 324mg Addendum to note by Scar Silva RN at 08/01/2015 4:53 SHANE Rollins is a 70 y.o. female who presents to the Emergency Department with chest p ain that was like a grabbing type pain into her neck and into her head and now is more of a pressure like pain that all began at 0230 am. Morphine 6 mg, NTG x 2 at home and then x 2 e n route, and ASA given en route. Cardiac Catheterization: PROCEDURES PERFORMED: Coronary Angiography Left Heart Catheterization [...] over a wire and used a 6 [place] JR4 guide catheter and perform selective cannulation [...] in a acute marginal branch from RCA. MEDICAL & SURGICAL HISTORY Past Medical History Diagnosis Date Numbness and [...] Knee Arthroplasty; Surgeon: Jordin Fernandez MD; Location: [facility] OR Cardiac catherization N/A 07/27/2015 Procedure: CV DIAGNOSTIC CARDIAC CATH; Surgeon: Иван Kaur MD; Location: [facility] C[facility]ULAR LAB CURRENT MEDICATIONS Previous Medications ACETAMINOPHEN (TYLENOL) 325 MG TABLET Take 2 tablets by mouth every 6 hours as needed f or Pain. AMLODIPINE (NORVASC) 2.5 MG TABLET Take 2.5 mg by mouth Daily. ASPIRIN 325 MG TABLET 1 pill daily CALCIUM CITRATE-VITAMIN D (CALCIUM + D) 315 MG-200 UNITS PER TABLET Take 1 tablet by mo ut 2 times daily. CLOPIDOGREL (PLAVIX) 75 MG TABLET Take 1 tablet by mouth Daily. CYANOCOBALAMIN (VITAMIN B-12) 1000 MCG TABLET Take 1,000 mcg by mouth Daily. DIPHENHYDRAMINE (BENADRYL) 25 MG TABLET Take 25 mg by mouth every 6 hours as needed for Itching. DULOXETINE (CYMBALTA) [address] CAPSULE Take 60 mg by mouth Daily. EPINEPHRINE (EPIPEN) 0.3 MG/0.3 ML INJECTION Inject 0.3 mg into the muscle as needed fo r Anaphylaxis. HYDROCODONE-ACETAMINOPHEN (NORCO) 5-325 MG PER TABLET Take 1-2 tablets by mouth every 4 hours as needed for Pain. LEVOTHYROXINE (SYNTHROID, LEVOTHROID) 150 MCG TABLET Take 150 mcg by mouth every mornin g (before breakfast). LISINOPRIL (PRINIVIL, ZESTRIL) 10 MG TABLET Take 1 tablet by mouth Daily. LORAZEPAM (ATIVAN) 0.5 MG TABLET Take 1 tablet by mouth nightly as needed for Insomnia. MAGNESIUM 200 MG TABS Take by mouth. METFORMIN (GLUCOPHAGE) 500 MG TABLET 1 pill twice daily starting on 07/29/2015 METOPROLOL TARTRATE (LOPRESSOR) 25 MG TABLET Take 0.5 tablets by mouth 2 times daily. MULTIPLE VITAMINS-MINERALS (MULTIVITAMIN PO) Take by mouth. NITROGLYCERIN (NITROSTAT) 0.[address] 1 tablet under the tongue every 5 thaddeus soledad as needed for Chest pain. OMEPRAZOLE (PRILOSEC) 20 MG CAPSULE Take 20 mg by mouth 2 times daily. POLYETHYLENE GLYCOL (MIRALAX) PACKET Take 1 diluted packet by mouth Daily as needed. 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 Respiratory: Positive for shortness of breath. Cardiovascular: Positive for chest pain. Gastrointestinal: Negative for nausea and vomiting. As in history of present illness. A 10 system review was otherwise negative. PHYSICAL EXAM VITAL SIGNS: (first vital signs):Temp: 36.5 C (97.7 F) Pulse: 63 Resp: 16 SpO2: 100 % B P: 141/66 mmHg Constitutional: female patient, No acute distress. Pleasant. Alert and appropriate. HEENT: Atraumatic, PERRL, Oropharynx benign. Neck: Supple with full range of motion. No JVD, lymphadenopathy, or meningismus. Respiratory: Good air movement bilaterally. No wheezes, No, rales. Cardiovascular: Normal S1 S2. Abdomen: Soft, nontender. No rebound, guarding, or masses. Bowel tones normal. No pulsa tile masses Back: No CVA tenderness. No midline thoracic or lumbar spinal tenderness. Extremities: Nontender. There is a right knee midline surgical scar with significant edema to the right leg greater than left. Present distal pulses. Skin: Warm, Dry, No rashes. Capillary refill is brisk <3 seconds and shows good perfusion . Neurologic: Alert & oriented. Cranial nerves II-XII intact. Gait and speech are normal. No focal deficits. Psychiatric: Normal mood, affect and judgement. No evidence of suicidal or homicidal idea tion EKG Emergency Department EKG interpretation: August 01, 2015 at 04:49 Rate: 64 Rhythm: NSR OK interval: Normal QRS: Normal ST segments: Normal T-waves: Normal Comments: No acute ischemia LABS Results for orders placed or performed during the hospital encounter of 08/01/15 CBC w/ Auto Differential Result Value Ref Range WBC 5.7 4.0-11.0 K/uL RBC 3.54 (L) 3.70-5.20 M/uL Hgb 10.9 (L) 11.5-16.0 g/dL Hct 32.3 (L) 34.0-47.0 % MCV 91.3 83.0-101.0 fL MCH 30.8 28.0-35.0 pg MCHC 33.7 32.0-36.0 g/dL RDW-CV 13.4 <15.0 % Platelet Count 333 140-440 K/uL MPV 7.4 fL % Neutrophils 44.2 (L) 45.0-82.0 % % Lymphocytes 31.5 20.0-45.0 % % Monocytes 13.7 (H) 4.0-12.0 % % Eosinophils 9.3 (H) 0.0-5.0 % % Basophils 1.3 (H) 0.0-1.0 % Absolute Neutrophils 2.50 1.80-8.50 K/uL Absolute Lymphocytes 1.80 0.60-3.20 K/uL Absolute Monocytes 0.80 0.00-1.00 K/uL Absolute Eosinophils 0.50 (H) 0.00-0.40 K/uL Absolute Basophils 0.10 0.00-0.10 K/uL Comprehensive Metabolic Panel Result Value Ref Range NA 139 136-149 mmol/L K 4.0 3.5-5.1 mmol/L CL 105 98-109 mmol/L CO2 26 24-31 mmol/L ANION GAP 8 3-16 mmol/L GLUCOSE 129 (H) 70-109 mg/dL BUN 11 7-18 mg/dL Creatinine, Serum/Plasma 0.69 0.60-1.30 mg/dL eGFR if not >60 >=60 mL/min/1.73m2 CALCIUM 8.5 8.3-10.5 mg/dL ALBUMIN 2.9 (L) 3.2-5.0 g/dL BILIRUBIN TOTAL 0.6 0.1-1.5 mg/dL Total protein 5.3 (L) 6.0-7.8 g/dL AST 19 10-42 U/L ALT 13 6-45 U/L ALK PHOS 103 40-110 U/L GLOBULIN 2.4 g/dL Albumin/Globulin ratio 1.2 BUN/CREA 15.9 Protime INR Result Value Ref Range PROTIME 13.4 11.3-13.9 seconds INR 0.97 0.90-1.10 Troponin I Result Value Ref Range Troponin I 0.03 <0.06 ng/mL IMAGING STUDIES (X-Rays interpreted by ED Physician) Recent imaging: Xr Knee Right 1 - 2 Vw 07/16/2015 XR KNEE RIGHT 1 - 2 VW. 07/16/2015 1:50 PM HISTORY: post op . COMPARISON: 02/2016 FINDINGS: Placement of right total knee arthroplasty prosthesis noted, in satisfact ory position and alignment, without periprosthetic fracture or loosening. Expected gas is s een within the joint capsule space, as well as in the overlying soft tissues. Skin staple l ine seen anteriorly. IMPRESSION - Placement of total knee arthroplasty in satisfactory posi tion and alignment, without evidence of hardware complication. Expected postsurgical change . Dictated and Signed by: Casper Caraballo MD Electronically signed: 07/16/2015 5:[address] Chest W Contrast 07/29/2015 External films for comparison only - no result from [place]. Xr Chest Ap Portable 07/29/2015 External films for comparison only - no result from [place]. Vas Lower Extremity Venous Bilateral 07/29/2015 External films for comparison only - no result from [place]. ED COURSE & MEDICAL DECISION MAKING Pertinent Labs & Imaging studies were reviewed along with EMS notes and [facility] record s if applicable. (See chart for details) Medications and Allergy list reviewed. Nurses note and old records were reviewed ER course 4:50 - Patient care initiated. After introducing myself to the patient, I performed a care ful history and physical examination. On one hand, it seems very unlikely that the patient would have an acute pulmonary embolism . She had a negative CT angiogram recently. Equally unlikely, the patient does not seem to have an in-stent thrombosis because she has no evidence of ST segment elevation on her EKG. I will check cardiac labs and re-assess 05:35. I spoke with Dr. Huerta the steel pickler. His recommendation is to have the patient observed in the ER with a repeat troponin 4 hours after the first one. The patient did have 1 lesion that was fairly stenotic but was at a branch point and did not ap pear to be a good candidate for intervention on the angiogram. He thinks this is the likely cause of her chest pain. Given that there is no indication for intervention at this lesion , medical management would be recommended. However, [facility] determine what her disposition should be very her care will be si gned out to the oncoming physician I did add a CT angiogram of the chest because a pulmonary embolism is a possibility. Even though she had a CT scan done recently, this event today may represent a pulmonary embolism. I will discuss the risks and benefits of this with the patient Last Set of Vital Signs: Temp: 36.5 C (97.7 F) Pulse: 63 Resp: 16 SpO2: 100 % BP: 141/6 6 mmHg FINAL IMPRESSION 1. Chest pain at rest Disposition: Pending Condition: Stable Portions of this chart may have been created with SpinNote voice recognition software. Occasi onal wrong-word or sound-alike substitutions may have occurred due to the inherent dhillon itations of voice recognition software. Please read the chart carefully and recognize, using context, where these substitutions have occurred. Phillip Tadeo MD 08/01/15 0542 documen ozzy in this encounter Miscellaneous Notes ED Triage Notes - Scar Silva, SOO - 08/01/2015 4:49 AM PDTStates chest pressure since 0230, states pain radiated to left shoulder and left neck. States pain started out as a gra bbing pressure that went up into her head and face. Denies SOB or N/V at this time. 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 Patient had a stent placed on at this facility by Dr. Huerta. documented in this encounter Plan of Treatment Not on filedocumented as of this encounter Procedures + +--------+ + + + | Procedure Name | Priori | Date/Time | Associated Diagnosis | Comments | | | ty | | | | + +--------+ + + + | TROPONIN I | Routin | 08/01/2015 | | Results for this | | | e | 8:47 AM | | procedure are in the | | | | PDT | | results section. | + +--------+ + + + | CK-MB | Routin | 08/01/2015 | | Results for this | | | e | 8:47 AM | | procedure are in the | | | | PDT | | results section. | + +--------+ + + + | CT ANGIOGRAM | STAT | 08/01/2015 | | Results for this | | PULMONARY | | 6:23 AM | | procedure are in the | | | | PDT | | results section. | + +--------+ + + + | TROPONIN I | STAT | 08/01/2015 | | Results for this | | | | 5:00 AM | | procedure are in the | | | | PDT | | results section. | + +--------+ + + + | PROTIME INR | STAT | 08/01/2015 | | Results for this | | | | 5:00 AM | | procedure are in the | | | | PDT | | results section. | + +--------+ + + + | COMPREHENSIVE | STAT | 08/01/2015 | | Results for this | | METABOLIC PANEL | | 5:00 AM | | procedure are in the | | | | PDT | | results section. | + +--------+ + + + | CBC W/AUTO | STAT | 08/01/2015 | | Results for this | | DIFFERENTIAL | | 4:59 AM | | procedure are in the | | | | PDT | | results section. | + +--------+ + + + | ECG 12 LEAD | STAT | 08/01/2015 | | Results for this | | | | 4:49 AM | | procedure are in the | | | | PDT | | results section. | + +--------+ + + + documented in this encounter Results Troponin I (08/01/2015 8:47 AM PDT) + + + + + + | Component | Value | Ref Range | Performed | Pathologist | | | | | At | Signature | + + + + + + | Troponin I | 0.02Comment: Reference | <0.06 ng/mL | [facility] | [...] | | | | | | [employer] | | | | | [...] + + | Performing | Address | City/State/[facility] | Phone Number | | Organization | | | | + + + + + | [facility] | [address] | [place] | [phone] | | [facility] | | [address] | | | - LABORATORY | | | | + + + + + CK-MB (08/01/2015 8:47 AM PDT) + +-------+ + + + | Component | Value | Ref Range | Performed | Pathologist | | | | | At | Signature | + +-------+ + + + | CK-MB | 1.2 | 0.6 - 6.3 ng/mL | [facility] | | | | | [...] + | [facility] | [address] | [place], [place] | [phone] | | [facility] | | [address] | | | - LABORATORY | | | | + + + + + CT Angiogram Pulmonary (08/01/2015 6:23 AM PDT) + + | Specimen | + + | | + + + + + | Narrative | Performed At | + + + | EXAM: CT PULMONARY ANGIOGRAM 08/01/2015 12:00 AM HISTORY: | [facility] | | CHEST PRESSURE COMPARISON: Chest CT dated July 26, 2015. | | | TECHNIQUE: Axial images are performed through the chest following the | | | uneventful intravenous administration of 60 mL Omnipaque-350 | | | contrast, with timing of the contrast bolus optimized for | | | opacification of the pulmonary arteries. Multiplanar reformations are | | | also performed. DOSE: DLP 222.40 mGy-cm FINDINGS: | | | Pulmonary arteries: The pulmonary arteries are well opacified. The | | | average Hounsfield units are 340. The bolus is homogeneous. There | | | are no filling defects to suggest pulmonary embolism. No | | | enlargement of the pulmonary artery. Heart and mediastinum: No | | | aneurysmal dilatation of the thoracic aorta. Dissection cannot be | | | excluded given the timing of the contrast bolus. No pericardial | | | thickening. There is mediastinal lymphadenopathy. The most | | | prominent node is right peritracheal the upper mediastinum. This | | | measures about 14.2 mm. There is a mildly enlarged right hilar node | | | measuring about 15.6 mm. Lungs: There is a back on of mild | | | emphysema. There is a 2 mm solid nodule in the right lung and image | | | 41. There are is no consolidation. There is no pleural effusion. | | | No pneumothorax. The airways are patent. No bronchiectasis. | | | Chest wall: There is no axillary or visible supraclavicular | | | lymphadenopathy. Upper abdomen: Postsurgical changes at the | | | gastroesophageal junction consistent with gastric bypass. There is | | | a hiatal hernia is a mixed type and small. Bones: No acute osseous | | | abnormalities or significant interval change. Areas of density | | | central and posterior knee vertebral body may represent marrow | | | reactivation. IMPRESSION - No pulmonary embolism. | | | Mediastinal and right hilar lymphadenopathy. This is nonspecific. | | | This is being atypical presentation for lymphoma. It is probably | | | reactive. 2 mm solid nodule in the right lung. Emphysema. | | | Appearance of the vertebral bodies could represent marrow | | | reactivation. Recommendation: Consider a short interval 3 month | | | follow up to reevaluate the lungs and lymphadenopathy. The | | | preliminary report is provided by Dr. Lanza on August 01, 2015 at | | | 6:37 AM. I discussed the case with Dr. Mark at 9:22 AM on the | | | morning of final interpretation. Dictated and Signed by: Vince Matta MD Electronically signed: 08/01/2015 9:23 AM | | + + + + + | Procedure Note | + + | Maurice, Rad Results In - 08/01/2015 9:26 AM PDT EXAM: CT PULMONARY ANGIOGRAM 08/01/2015 | | 12:00 AM HISTORY: CHEST PRESSURE COMPARISON: Chest CT dated July 26, 2015. TECHNIQUE: | | Axial images are performed through the chest following the uneventfulintravenous | | administration of 60 mL Omnipaque-350 contrast, with timing of thecontrast bolus | | optimized for opacification of the pulmonary arteries.Multiplanar reformations are also | | performed.DOSE: DLP 222.40 mGy-cmFINDINGS: Pulmonary arteries: The pulmonary arteries | | are well opacified. The averageHounsfield units are 340. The bolus is homogeneous. | | There are no fillingdefects to suggest pulmonary embolism. No enlargement of the | | pulmonary artery.Heart and mediastinum: No aneurysmal dilatation of the thoracic aorta. | | Dissection cannot be excluded given the timing of the contrast bolus. Nopericardial | | thickening. There is mediastinal lymphadenopathy. The mostprominent node is right | | peritracheal the upper mediastinum. This measures about14.2 mm. There is a mildly | | enlarged right hilar node measuring about 15.6 mm.Lungs: There is a back on of mild | | emphysema. There is a 2 mm solid nodule inthe right lung and image 41. There are is no | | consolidation. There is nopleural effusion. No pneumothorax. The airways are patent. | | No bronchiectasis.Chest wall: There is no axillary or visible supraclavicular | | lymphadenopathy. Upper abdomen: Postsurgical changes at the gastroesophageal junction | | consistentwith gastric bypass. There is a hiatal hernia is a mixed type and | | small.Bones: No acute osseous abnormalities or significant interval change. Areas | | ofdensity central and posterior knee vertebral body may represent marrowreactivation. | | IMPRESSION -No pulmonary embolism.Mediastinal and right hilar lymphadenopathy. This is | | nonspecific. This isbeing atypical presentation for lymphoma. It is probably | | reactive.2 mm solid nodule in the right lung. Emphysema.Appearance of the vertebral | | bodies could represent marrow reactivation.Recommendation: Consider a short interval 3 | | month follow up to reevaluate thelungs and lymphadenopathy.The preliminary report is | | provided by Dr. Lanza on August 01, 2015 at 6:37 AM.I discussed the case with Dr. Mark | | at 9:22 AM on the morning of finalinterpretation.Dictated and Signed by: Vince Rodriguez | | MD Sigrid Electronically signed: 08/01/2015 9:23 AM | | | |Chest wall: There is no axillary or visible supraclavicular lymphadenopathy. | | | |Upper abdomen: Postsurgical changes at the gastroesophageal junction consistent | |with gastric bypass. There is a hiatal hernia is a mixed type and small. | | | |Bones: No acute osseous abnormalities or significant interval change. Areas of | |density central and posterior knee vertebral body may represent marrow | |reactivation. | | | |IMPRESSION - | | | |No pulmonary embolism. | | | |Mediastinal and right hilar lymphadenopathy. This is nonspecific. This is | |being atypical presentation for lymphoma. It is probably reactive. | | | |2 mm solid nodule in the right lung. | | | |Emphysema. | | | |Appearance of the vertebral bodies could represent marrow reactivation. | | | |Recommendation: Consider a short interval 3 month follow up to reevaluate the | |lungs and lymphadenopathy. | | | |The preliminary report is provided by Dr. Lanza on August 01, 2015 at 6:37 AM. | | | |I discussed the case with Dr. Mark at 9:22 AM on the morning of final | |interpretation. | | | |Dictated and Signed by: Vince Matta MD | | Electronically signed: 08/01/2015 9:23 AM | + + + +---------+ + + | Performing | Address | City/State/Zipcode | Phone Number | | Organization | | | | + +---------+ + + | [facility] | | | | + +---------+ + + Troponin I (08/01/2015 5:00 AM PDT) + + + + + + | Component | Value | Ref Range | Performed | Pathologist | | | | | At | Signature | + + + + + + | Troponin I | 0.03Comment: Reference | <0.06 ng/mL | [facility] | [...] | | | | | | [employer] | | | | | [...] + + | Performing | Address | City/State/[facility] | Phone Number | | Organization | | | | + + + + + | [facility] | [address] | [place] | [phone] | | [facility] | | [address] | | | - LABORATORY | | | | + + + + + Protime INR (08/01/2015 5:00 AM PDT) + + + + + + | Component | Value | Ref Range | Performed | Pathologist | | | | | At | Signature | + + + + + + | Prothrombin | 13.4 | 11.3 - 13.9 | [facility] | | | Time | | seconds | [facility] | | | | | | [facility] | | | | | | [facility] - | | | | | | LABORATORY | | + + + + + + | INR | 0.97Comment: Usual Oral | 0.90 - 1.10 | [...] + + | [facility] | [address] | [place] | [phone] | | [facility] | | [address] | | | - LABORATORY | | | | + + + + + Comprehensive Metabolic Panel (08/01/2015 5:00 AM PDT) + + + + + [...] + + + + | K | 4.0 | 3.5 - 5.1 | [facility] | | | | | mmol/L | [facility] | | | | | | [facility] | | | | | | CENTER - | | | | | | LABORATORY | | + + + + + + | Cl | 105 | 98 - 109 mmol/L | [facility] [...] + + + + | Glucose | 129 (H) | 70 - 109 mg/dL | [facility] | | [facility] | | | [facility] | | | [facility] | [facility] | | | | | | [facility] - | | | | | | LABORATORY | | + + + + + + | BUN | 11 | 7 - 18 mg/dL | [facility] | | | | | | [facility] | [facility] | [facility] | [facility] | | | | | | CENTER - | | | | | | LABORATORY | | + + + + + + | Creatinine | 0.69 | 0.60 - 1.30 | [facility] | | | | | mg/dL | [facility] | | | | | | MEDICAL | | | | | | CENTER - | | | | | | LABORATORY | | + + + + + + | eGFR, | >60Comment: GLOMERULAR | >=60 | [facility] | | | non- | FILTRATION | mL/min/1.73m2 | [facility] | | | [place] | RATE,ESTIMATED | | MEDICAL | | | | mL/min/1.76l0Sdib than | | CENTER - | | [...] + + + + | Albumin | 2.9 (L) | 3.2 - 5.0 g/dL | [facility] | | | | | | [facility] | [facility] | [facility] | [facility] | | | | | | CENTER - | | | | | | LABORATORY | | + + + + + + | Bilirubin | 0.6Comment: This is an | 0.1 - 1.5 [...] + + + + | Total | 5.3 (L) | 6.0 - 7.8 g/dL | [facility] | | | Protein | | | [facility] | | | | | | [facility]ICAL | | | | | | CENTER - | | | | | | LABORATORY | | + + + + + + | AST | 19Comment: This is an | 10 - 42 [...] + + + + | ALT | 13Comment: This is an | 6 - 45 [...] + + + + | Alkaline | 103Comment: This is an | 40 - 110 U/L | [facility] | | | Phosphatase | appended report. These | [facility] | | | | results have been | | MEDICAL | | | | appended to a previously | | CENTER - | | | | preliminary verified | | LABORATORY | | | | report. | | | | + + + + + + | Globulin | 2.4 | g/dL | [facility] | | | | | | [facility] | | | | | | [facility]ICAL | | | | | | CENTER - | | | | | | LABORATORY | | + + + + + + | Albumin/Karrie | 1.2 | | [facility] | | | bulin Ratio | | | [facility] | | | | | | [facility]ICAL | | | | | | CENTER - | | | | | | LABORATORY | | + + + + + + | BUN/Creatin | 15.9 | | [facility] | | | ine [...] [address] | [place] | [phone] | | [facility] | | [address] | | | - LABORATORY | | | | + + + + + CBC w/ Auto Differential (08/01/2015 4:59 AM PDT) + + + + + + | Component | Value | Ref Range | Performed | Pathologist | | | | | At | Signature | + + + + + + | White Blood | 5.7 | 4.0 - 11.0 K/uL | [facility] | | | Cells | | | [facility] | | | | | [facility]ICAL | | | | | | CENTER - | | | | | | LABORATORY | | + + + + + + | Red Blood | 3.54 (L) | 3.70 - 5.20 | [facility] | | | Cells | | M/uL | [facility] | | | | | | MEDICAL | | | | | | CENTER - | | | | | | LABORATORY | | + + + + + + | Hemoglobin | 10.9 (L) | 11.5 - 16.0 | [facility] | | | | | g/dL | [facility] | | | | | | MEDICAL | | | | | | CENTER - | | | | | | LABORATORY | | + + + + + + | Hematocrit | 32.3 (L) | 34.0 - 47.0 % | [...] + + + + | MCH | 30.8 | 28.0 - 35.0 pg | [facility] | | | | | | [facility] | | | | | | MEDICAL | | | | | | CENTER - | | | | | | LABORATORY | | + + + + + + | MCHC | 33.7 | 32.0 - 36.0 | [facility] | | | | | g/dL | [facility] | | | | | | MEDICAL | | | | | | CENTER - | | | | | | LABORATORY | | + + + + + + | RDW-CV | 13.4 | <15.0 % | [facility] | | | | | | [facility] | | | | | | MEDICAL | | | | | | CENTER - | | | | | | LABORATORY | | + + + + + + | Platelet | 333 | 140 - 440 K/uL | [facility] | | | Count | | | [facility] | | | | | | MEDICAL | | | | | | CENTER - | | | | | | LABORATORY | | + + + + + + | MPV | 7.4 | fL | [facility] | | | | | | [facility] | | | | | | MEDICAL | | | | | | CENTER - | | | | | | LABORATORY | | + + + + + + | % | 44.2 (L) | 45.0 - 82.0 % | [facility] | | | Neutrophils | | | [facility] | | | | | | MEDICAL | | | | | | CENTER - | | | | | | LABORATORY | | + + + + + + | % | 31.5 | 20.0 - 45.0 % | [facility] | | | Lymphocytes | | | [facility] | | | | | | MEDICAL | | | | | | CENTER - | | | | | | LABORATORY | | + + + + + + | % Monocytes | 13.7 (H) | 4.0 - 12.0 % | [facility] | | | | | | [facility] | | | | | | MEDICAL | | | | | | CENTER - | | | | | | LABORATORY | | + + + + + + | % | 9.3 (H) | 0.0 - 5.0 % | [facility] | | | Eosinophils | | | [facility] | | | | | | MEDICAL | | | | | | CENTER - | | | | | | LABORATORY | | + + + + + + | % Basophils | 1.3 (H) | 0.0 - 1.0 % | [facility] | | | | | | [facility] | | | | | | MEDICAL | | | | | | CENTER - | | | | | | LABORATORY | | + + + + + + | Absolute | 2.50 | 1.80 - 8.50 | [facility] | | | Neutrophils | | K/uL | [facility] | | | | | | MEDICAL | | | | | | CENTER - | | | | | | LABORATORY | | + + + + + + | Absolute | 1.80 | 0.60 - 3.20 | [facility] | | | Lymphocytes | | K/uL | [facility] | | | | | | MEDICAL | | | | | | CENTER - | | | | | | LABORATORY | | + + + + + + | Absolute | 0.80 | 0.00 - 1.00 | [facility] | | | Monocytes | | K/uL | [facility] | | | | | | MEDICAL | | | | | | CENTER - | | | | | | LABORATORY | | + + + + + + | Absolute | 0.50 (H) | 0.00 - 0.40 | [facility] [...] + + | [address] | [address] | [place] | [phone] | | [facility] | | [address] | | | - LABORATORY | | | | + + + + + ECG 12 lead (08/01/2015 4:49 AM PDT) + + + + + + | Component | Value | Ref Range | Performed | Pathologist | | | | | At | Signature | + + + + + + | VENTRICULAR | 64 | BPM | [facility] | | | RATE EKG | | | | | + + + + + + | ATRIAL RATE | 64 | BPM | [facility] | | [...] + + + + | Q-T | 424 | ms | [facility] | | | INTERVAL | | | | | + + + + + + | Q-T | 437 | ms | [facility] | | | INTERVAL | | | | | | (CORRECTED) | | | | | + + + + + + | P WAVE AXIS | 63 | degrees | [facility] | | + + + + + + | QRS AXIS | 48 | degrees | [facility] | | + + + + + + | T AXIS | 53 | degrees | [facility] | | + + + + + + | INTERPRETAT | Normal sinus | | [facility] | | | ION TEXT | rhythmNonspecific T wave | | | | | | abnormalityAbnormal ECG | | | | | | Confirmed by TRINY | | | | | | NATHANAEL WEBBER ([id number]) on | | | | | | 08/01/2015 1:06:52 PM | | | | + + [...] + | Diagnosis | + + | Chest pain at rest - Primary Chest pain, unspecified | + + documented in this encounter Administered Medications + +--------+ +---------+------+------+ | Medication Order | MAR | Action | Dose | Rate | Site | | | Action | Date | | | | + +--------+ +---------+------+------+ | HYDROcodone-acetaminophen | Given | 08/01/19 | 2 | | | | (NORCO) 5-325 mg per tablet 2 | | 16 10:20 | tablets | | | | tablet 2 tablet, Oral, ONCE, Emmanuelle | | AM PDT | | | | | 08/01/15 at 1020, For 1 dose | | | | | | + +--------+ +---------+------+------+ +---+---+ | | | +---+---+ + +-------+ +--------+---+---+ | iohexol (OMNIPAQUE 350) 350 | Given | 08/01/19 | 60 mLs | | | | mg/mL injection 60 mL 60 mL, | | 16 6:23 | | | | | Intravenous, ONCE PRN, Other, | | AM PDT | | | | | Starting [facility] 08/01/15 at 0622, For | | | | | | | 1 dose, Cat Scanner | | | | | | + +-------+ +--------+---+---+ +---+---+ | | | +---+---+ + +-------+ +-------+---+---+ | isosorbide mononitrate (IMDUR) | Given | 08/01/19 | 30 mg | | | | ER tablet 30 mg 30 mg, Oral, | | 16 9:36 | | | | | ONCE, [facility] 08/01/15 at 0915, For 1 | | AM PDT | | | | | dose, Tablet may be cut where | | | | | | | scored but do not crush., | | | | | | + +-------+ +-------+---+---+ +---+---+ | | | +---+---+ documented in this encounter
--- OUTSIDE RECORDS SUMMARY | ~2020-02-03 | XMS | Encounter Summary ---
Demographics + + + | Address | [address] | | | [place] [address] | + + + | Home Phone | | + + + | Preferred Language | Unknown | + + + | Marital Status | Single | + + + | Sabianism Affiliation | 1013 | + + + | Race | White | + + + | Ethnic Group | Not or | + + + Author + + + | Author | [facility] | | | and [place] | + + + | Organization | [facility] | | | and [...] Team Providers + +------+ + | Care Grape Crusher Name | Role | Phone | + +------+ + PCP | Unavailable | + +------+ + Reason for Visit + + + | Reason | Comments | + + + | Follow-up | | + + + | Coronary Artery | | | Disease | | + + + | Aortic Stenosis | | + + + | Atrial Fibrillation | | + + + | Hypertension | | + + + Encounter Details +--------+---------+ + + + | Date | Type | Department | Care Team | Description | +--------+---------+ + + + | 08/31/ | Office | [facility] | Maral Alfonso, | Coronary artery | | 2019 | Visit | CARDIOLOGY [address] ROLL UP HELPER [address] | disease involving | | | | [address] [place], | [place], [place] | [place] coronary | | | | [place] [address] | [address] | artery of [place] | | | | [phone] | | heart with angina | | | | | | pectoris (HCC) | | | | | | (Primary Dx); Aortic | | | | | | valve stenosis, | | | | | | etiology of cardiac | | | | | | valve disease | | | | | | unspecified; | | | | | | Essential | | | | | | hypertension with | | | | | | goal blood pressure | | | | | | less than 140/90; | | | | | | Paroxysmal atrial | | | | | | fibrillation (HCC) | +--------+---------+ + + + Social History [...] + + + | Blood Pressure | 140/74 | 08/31/2018 9:45 AM | | | | | PDT | | + + + + + | Pulse | 64 | 08/31/2018 9:45 AM | irregular | | | | PDT | | + + + + + | Temperature | - | - | | + + + + + | Respiratory Rate | 16 | 08/31/2018 9:45 AM | | | | | PDT | | + + + + + | Oxygen Saturation | - | - | | + + + + + | Inhaled Oxygen | - | - | | | Concentration | | | | + + + + + | Weight | 73 kg (160 lb 15 oz) | 08/31/2018 9:45 AM | | | | | PDT | | + + + + + | Height | 162.6 cm (5' 4") | 08/31/2018 9:45 AM | | | | | PDT | | + + + + + | Body Mass Index | 27.62 | 08/31/2018 9:45 AM | | | | | PDT [...] Instructions Patient Instructions Indu Gómez RN - 08/31/2018 9:45 AM PDTKing of Hearts/Event Mon itor: 4 weeks Date: Check-In Time: Where to Check In: INSTRUCTIONS Le Rollins 1945 Procedure: Bilateral heart catheterization Day: Date: Check-in time: 1. Check in at the [facility]. 2. Stop taking Eliquis one day prior to the procedure. Your last dose will be on __, no later than 6 PM. You will resume your previous dose on in the evening . 3. Do not eat or drink anything after midnight prior to the procedure. 4. Take all of your regular medications including Aspirin with a sip of water the morning o f the procedure except Eliquis as listed above. 5. The procedure lasts approximately one hour, and you will have conscious sedation for the procedure which will help decrease pain and will make you groggy. 6. After the procedure you will remain either in recovery or same day surgery center for at least 2 hours, part of this time you may have to lie flat depending on the procedure. 7. Make sure you have a recycler forklift driver truck driver to take you home. Your recycler forklift driver truck driver will also need to sign you ou t, to take responsibility for you, so it can not be a taxi or transportation system, unless there is a caregiver with transportation. 8. Please call us with any questions or concerns at . If you need to cancel the procedure at the last minute, such as due to illness, and you are calling after regular office hours, call the main hospital line at and ask for nursing gym supervisor t o let them know you are cancelling . Follow up appointment in Cardiology: Provider: NICOLE Harden Date: Check-in time: documented in this encounter Progress Notes Maral Alfonso ARNP - 08/31/2018 9:45 AM PDTFormatting of this note might be different fr om the original. PATIENT NAME: Le Rollins : [...] that. She still tries to uses the Propable Step machine for 15 or more thaddeus [...] exertion, like aris flaherty she moved from [facility] to [facility] and she overexerted herself. 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: LIPID Lab Results Component Value Date [...] the HPI. RESULTS- I reviewed reports from [facility]: Nuclear Stress Test on 07/12/2018 shows, [...] III- Symptoms with minimal exertion of the [place] [employer] functional class. Heart failure stage [...] there i s none/trivial pericardial effusion. Shirley Hartman. C. Echocardiogram on 07/15/2018 shows, mild left atrial dilatation, normal left ventricular size, wall thickness and motion, preserved left ventricular systolic function, L VEF is 70-75%, grade 1 left ventricular diastolic dysfunction, moderately thickened and calc ified trileaflet aortic valve with moderate calcific aortic valve stenosis, right coronary c jail is immobile, there is a mild to [...] 75 (1) and Female Gender (1). Her [id number] score is 6, which give s an [...] gigi, and had stent to this at [facility]. B. Today, 08/31/2018, she is on good medical [...] , diagnosis and treatment options. [facility] Service Caseworker am acting as a scribe on behalf of, and in the pres ence of NICOLE Harden. - Rashi Hampton 08/31/2018 9:54 I, NICOLE Harden, personally performed the services described in this documentation, as scribed in my presence and it is both accurate and complete. NICOLE Harden 08/31/2018 Portions of this chart may have been created with [employer] voice recognition software. Occasi onal wrong-word or sound-alike substitutions may have occurred due to the inherent dhillon itations of voice recognition software. Please read the chart carefully and recognize, using context, where these substitutions have occurred. documented in this encounter Plan of Treatment Not on filedocumented as of this encounter Results Mobile Cardiac Telemetry (10/06/2018 9:24 AM PDT) + + + | Narrative | Performed At | + + + | Alicia Gonzáles MD 10/06/2018 9:27 Mobile cardiac | [facility] | | telemetry from 09/02 until 10/02/2018. Baseline EKG shows sinus rhythm | | | with heart rate ranging from 45-113 beats minute. PACs, atrial | | | couplets, PSVT with heart rate of 150 bpm were noted. PVCs, | | | ventricular couplets, 15 beat runs nonsustained ventricular | | | tachycardia, heart rate of 125 bpm were shown. 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
--- OUTSIDE RECORDS SUMMARY | ~2020-02-03 | XMS | Encounter Summary ---
Demographics + + + | Address | [address] | | | [place] [address] | + + + | Home Phone | | + + + | Preferred Language | Unknown | + + + | Marital Status | Single | + + + | Anglican Affiliation | 1013 | + + + [...] Team Providers + +------+ + | Care Fulling Mill Operator Name | Role | Phone | + +------+ + | Ole Madden DO | PCP | | + +------+ + Reason for Visit + +--------+ + | Reason | Onset | Comments | | | Date | | + +--------+ + | Hospital Follow-up | 07/22/ | | | | 2015 | | + +--------+ + Encounter Details +--------+ + + + + | Date | Type | Department | Care Team | Description | +--------+ + + + + | 07/22/ | Telephone | [facility] | Dick Alvares, | Hospital Follow-up | | 2016 | | [facility] | Writing Manager | | | | | [address] | | | | | | [place] [address] | | | | | | [phone] | | | +--------+ + + + [...] this encounter Miscellaneous Notes Telephone Encounter - Dick Alvares, Writing Manager - 07/23/2015 2:58 PM PDTHospital Foll ow-Up Phone Call Date discharged: 07/19/15 Date of Procedure: 07/16/15 Procedure Performed: Right Total Knee Arthroplasty Education done/topics reviewed: 1. Health Status: Doing all right, using walker. 2. Diagnosis education- reviewed pts knowledge of primary diagnosis and provided additional education. - Are you up and walking? Yes, may have over used leg and was sore. - Feeling the start of an infection? No 3. Medication Reconciliation - Discussed acute medications (norco, aspirin, acetaminophen) - Patient had other medications in pill box, did not have bottles for review 4. Pain Assessment- - Current pain score is 5 out of 10 when resting and 7 out of 10 during activities. - Sedation assessment: Pt reports that during daytime hours, they are sleepy occasionally. - Side Effects: Pt reports the following side effects: Had nightmares one night after 2 n orco and 2 aspirin - Are your bowels moving? Some straining -Signs of a DVT? No 5. Patient Is receiving home health services 6. Reminded pt of scheduled follow-up appointment. 7. Reviewed what do in emergency as well as a non-emergent situation. Verified pt has doct or's contact information. Date of follow-up appointment with surgeon: 07/25/15 @9805 w/ Dr. Fernandez Phone call made by: Dick Alvares Pharmacy InternElectronically signed by Dick Alvares, Writing Manager at 07/22 4:31 PM PDTdocumented in this encounter Plan of Treatment Not on filedocumented as of this encounter Visit Diagnoses Not on filedocumented in this encounter"
--- OUTSIDE RECORDS SUMMARY | ~2020-02-03 | XMS | Encounter Summary ---
Demographics + + + | Address | [address] | | | [place] [address] | + + + | Home Phone [...] Team Providers + +------+ + | Care Military Personnel Specialist Name | Role | Phone | + +------+ + PCP | Unavailable | + +------+ + Encounter Details +--------+ + + + + | Date | Type | Department | Care Team | Description | +--------+ + + + + | 09/21/ | Hospital | [facility] | Toro Diamond MD | | | 2006 - | Encounter | MED [facility] | [address] [place] | | | | | [address] | [address] | | | 09/23/ | | [place] [address] | [address] | | | 2006 | | [phone] | | | +--------+ + + + [...]
--- OUTSIDE RECORDS SUMMARY | ~2020-02-03 | XMS | Encounter Summary ---
Demographics + + + | Address | [address] | | | [place] [address] | + + + | Home Phone [...] + + + | Author | [facility] | | | and [place] | + + + | Organization | [facility] | | | [...] Team Providers + +------+ + | Care Web User Experience Strategist Name | Role | Phone | + +------+ + PCP | Unavailable | + +------+ + Encounter Details +--------+ + + + + | Date | Type | Department | Care Team | Description | +--------+ + + + + | 08/16/ | Abstract | [facility] [place] | Neil, | | | 2018 | | CARDIOLOGY [address] | Nicole NICOLE [address] | | | | | [place], | [place], | | | | | [place] [address] | [place] [address] | | | | | [phone] | [phone] | | | | | | | [...] +--------+ + + + | EXTERNAL LAB: BUN | Routin | 06/03/2018 | | Results for this | | | e | | | procedure are in the | | | | | | results section. | + +--------+ + + + | EXTERNAL LAB: | Routin | 06/03/2018 | | Results for this | | GLUCOSE | e | | | procedure are in the | | | | | | results section. | + +--------+ + + + | EXTERNAL LAB: ALT | Routin | 06/03/2018 | | Results for this | | | e | | | procedure are in the | | | | | | results section. | + +--------+ + + + | EXTERNAL LAB: AST | Routin | 06/03/2018 | | Results for this | | | e | | | procedure are in the | | | | | | results section. | + +--------+ + + + | EXTERNAL LAB: | Routin | 06/03/2018 | | Results for this | | ALKALINE PHOSPHATASE | e | | | procedure are in the | | | | | | results section. | + +--------+ + + + | EXTERNAL LAB: | Routin | 06/03/2018 | | Results for this | | BILIRUBIN, TOTAL | e | | | procedure are in the | | | | | | results section. | + +--------+ + + + | EXTERNAL LAB: | Routin | 06/03/2018 | | Results for this | | ALBUMIN | e | | | procedure are in the | | | | | | results section. | + +--------+ + + + | EXTERNAL LAB: | Routin | 06/03/2018 | | Results for this | | PROTEIN, TOTAL | e | | | procedure are in the | | | | | | results section. | + +--------+ + + + | EXTERNAL LAB: | Routin | 06/03/2018 | | Results for this | | CALCIUM | e | | | procedure are in the | | | | | | results section. | + +--------+ + + + | EXTERNAL LAB: CARBON | Routin | 06/03/2018 | | Results for this | | DIOXIDE | e | | | procedure are in the | | | | | | results section. | + +--------+ + + + | EXTERNAL LAB: | Routin | 06/03/2018 | | Results for this | | CHLORIDE | e | | | procedure are in the | | | | | | results section. | + +--------+ + + + | EXTERNAL LAB: | Routin | 06/03/2018 | | Results for this | | POTASSIUM | e | | | procedure are in the | | | | | | results section. | + +--------+ + + + | EXTERNAL LAB: SODIUM | Routin | 06/03/2018 | | Results for this | | | e | | | procedure are in the | | | | | | results section. | + +--------+ + + + | EXTERNAL LAB: CBC | Routin | 06/03/2018 | | Results for this | | | e | | | procedure are in the | | | | | | results section. | + +--------+ + + + | EXTERNAL LAB: | Routin | 06/03/2018 | | Results for this | | TRIGLYCERIDES | e | | | procedure are in the | | | | | | results section. | + +--------+ + + + | EXTERNAL LAB: | Routin | 06/03/2018 | | Results for this | | CHOLESTEROL, HDL | e | | | procedure are in the | | | | | | results section. | + +--------+ + + + | EXTERNAL LAB: | Routin | 06/03/2018 | | Results for this | | CHOLESTEROL, TOTAL | e | | | procedure are in the | | | | | | results section. | + +--------+ + + + | EXTERNAL LAB: | Routin | 06/03/2018 | | Results for this | | CHOLESTEROL, LDL | e | | | procedure are in the | | | | | | results section. | + +--------+ + + + | EXTERNAL LAB: EGFR | Routin | 06/03/2018 | | Results for this | | | e | | | procedure are in the | | | | | | results section. | + +--------+ + + + | EXTERNAL LAB: | Routin | 06/03/2018 | | Results for this | | CREATININE | e | | | procedure are in the | | | | | | results section. | + +--------+ + + + | LIPID PANEL | Routin | 06/03/2018 | | Results for this | | | e | | | procedure are in the | | | | | | results section. | + +--------+ + + + | CBC WITH | Routin | 06/03/2018 | | Results for this | | DIFFERENTIAL | e | | | procedure are in the | | | | | | results section. | + +--------+ + + + | COMPREHENSIVE | Routin | 06/03/2018 | | Results for this | | METABOLIC PANEL | e | | | procedure are in the | | | | | | results section. | + +--------+ + + + documented in this encounter Results CBC with Differential (06/03/2018) + + + + + + | Component | Value | Ref Range | Performed | Pathologist | | | | | At | Signature | + + + + + + | MCH | 33.1 (A) | 26.0 - 33.0 pg | | | + + + + + + | MCHC | 33.1 | 30.0 - 36.0 | | | | | | g/dL | | | + + + + + + | MPV | 8.3 | 0.0 - 12.0 fL | | | + + + + + + + + | Specimen | + + | Blood | + + Lipid Panel (06/03/2018) + +-------+ + + + | Component | Value | Ref Range | Performed | Pathologist | | | | | At | Signature | + +-------+ + + + | HDL | 84 | 40 - 85 mg/dl | | | + +-------+ + + + + + | Specimen | + + | Blood | + + Comprehensive Metabolic Panel (06/03/2018) + +-------+ + + + | Component | Value | Ref Range | Performed | Pathologist | | | | | At | Signature | + +-------+ + + + | Anion Gap | 10 | 3 - 12 mmol/L | | | + +-------+ + + + | Bun/Creatin | 32.31 | | | | | ine | | | | | + +-------+ + + + + + | Specimen | + + | Blood | + + External Lab: BUN (06/03/2018) + +--------+ + + + | Component | Value | Ref Range | Performed | Pathologist | | | | | At | Signature | + +--------+ + + + | BUN, | 21 (A) | 7 - 18 | | | | External | | | | | + +--------+ + + + External Lab: Glucose (06/03/2018) + +-------+ + + + | Component | Value | Ref Range | Performed | Pathologist | | | | | At | Signature | + +-------+ + + + | Glucose, | 97 | 70 - 100 | | | | External | | | | | + +-------+ + + + External Lab: ALT (06/03/2018) + +--------+ + + + | Component | Value | Ref Range | Performed | Pathologist | | | | | At | Signature | + +--------+ + + + | ALT, | 72 (A) | 10 - 48 | | | | External | | | | | + +--------+ + + + External Lab: AST (06/03/2018) + +--------+ + + + | Component | Value | Ref Range | Performed | Pathologist | | | | | At | Signature | + +--------+ + + + | AST, | 65 (A) | 10 - 42 | | | | External | | | | | + +--------+ + + + External Lab: Alkaline Phosphatase (06/03/2018) + +---------+ + + + | Component | Value | Ref Range | Performed | Pathologist | | | | | At | Signature | + +---------+ + + + | ALP, | 105 (A) | 32 - 92 | | | | External | | | | | + +---------+ + + + External Lab: Bilirubin, Total (06/03/2018) + +-------+ + + + | Component | Value | Ref Range | Performed | Pathologist | | | | | At | Signature | + +-------+ + + + | Bilirubin, | 0.5 | 0.2 - 1.2 | | | | Total, | | | | | | External | | | | | + +-------+ + + + External Lab: Albumin (06/03/2018) + +-------+ + + + | Component | Value | Ref Range | Performed | Pathologist | | | | | At | Signature | + +-------+ + + + | Albumin, | 3.9 | 3.5 - 5 | | | | External | | | | | + +-------+ + + + External Lab: Protein, Total (06/03/2018) + +-------+ + + + | Component | Value | Ref Range | Performed | Pathologist | | | | | At | Signature | + +-------+ + + + | Protein, | 6.4 | 6 - 8.1 | | | | Total, | | | | | | External | | | | | + +-------+ + + + External Lab: Calcium (06/03/2018) + +-------+ + + + | Component | Value | Ref Range | Performed | Pathologist | | | | | At | Signature | + +-------+ + + + | Calcium, | 8.9 | 8.4 - 10.5 | | | | External | | | | | + +-------+ + + + External Lab: Carbon Dioxide (06/03/2018) + +-------+ + + + | Component | Value | Ref Range | Performed | Pathologist | | | | | At | Signature | + +-------+ + + + | Carbon | 29 | 21 - 31 | | | | Dioxide, | | | | | | External | | | | | + +-------+ + + + External Lab: Chloride (06/03/2018) + +-------+ + + + | Component | Value | Ref Range | Performed | Pathologist | | | | | At | Signature | + +-------+ + + + | Chloride, | 102 | 98 - 107 | | | | External | | | | | + +-------+ + + + External Lab: Potassium (06/03/2018) + +-------+ + + + | Component | Value | Ref Range | Performed | Pathologist | | | | | At | Signature | + +-------+ + + + | Potassium, | 4.4 | 3.6 - 5 | | | | External | | | | | + +-------+ + + + External Lab: Sodium (06/03/2018) + +-------+ + + + | Component | Value | Ref Range | Performed | Pathologist | | | | | At | Signature | + +-------+ + + + | Sodium, | 141 | 135 - 145 | | | | External | | | | | + +-------+ + + + External Lab: CBC (06/03/2018) + + + + + + | Component | Value | Ref Range | Performed | Pathologist | | | | | At | Signature | + + + + + + | WBC, | 6.3 | 4.3 - 11 | | | | External | | | | | + + + + + + | HGB, | 12.5 | 12 - 16 | | | | External | | | | | + + + + + + | HCT, | 37.9 (A) | 38 - 47 | | | | External | | | | | + + + + + + | PLT, | 202 | 150 - 375 | | | | External | | | | | + + + + + + | RBC, | 3.79 (A) | 4.2 - 5.4 | | | | External | | | | | + + + + + + | MCV, | 100 | 82 - 100 | | | | External | | | | | + + + + + + | RDW, | 14 | 11.6 - 16 | | | | External | | | | | + + + + + + External Lab: Triglycerides (06/03/2018) + +-------+ + + + | Component | Value | Ref Range | Performed | Pathologist | | | | | At | Signature | + +-------+ + + + | Triglycerid | 66 | 35 - 160 | | | | es, | | | | | | External | | | | | + +-------+ + + + + + | Specimen | + + | Blood | + + External Lab: Cholesterol, HDL (06/03/2018) + +-------+ + + + | Component | Value | Ref Range | Performed | Pathologist | | | | | At | Signature | + +-------+ + + + | HDL | 2 | 0 - 5 mg/dl | | | | Cholesterol | | | | | | , External | | | | | + +-------+ + + + + + | Specimen | + + | Blood | + + External Lab: Cholesterol, Total (06/03/2018) + +-------+ + + + | Component | Value | Ref Range | Performed | Pathologist | | | | | At | Signature | + +-------+ + + + | Cholesterol | 162 | 120 - 200 mg/dl | | | | , Total, | | | | | | External | | | | | + +-------+ + + + + + | Specimen | + + | Blood | + + External Lab: Cholesterol, LDL (06/03/2018) + +-------+ + + + | Component | Value | Ref Range | Performed | Pathologist | | | | | At | Signature | + +-------+ + + + | LDL | 65 | 0 - 99 | | | | Cholesterol | | | | | | , Direct, | | | | | | External | | | | | + +-------+ + + + + + | Specimen | + + | Blood | + + External Lab: eGFR (06/03/2018) + +-------+ + + + | Component | Value | Ref Range | Performed | Pathologist | | | | | At | Signature | + +-------+ + + + | eGFR, | >60 | | | | | External | | | | | + +-------+ + + + + + | Specimen | + + | Blood | + + External Lab: Creatinine (06/03/2018) + +-------+ + + + | Component | Value | Ref Range | Performed | Pathologist | | | | | At | Signature | + +-------+ + + + | Creatinine, | 0.7 | 0.6 - 1.3 | | | | External | | | | | + +-------+ + + + + + | Specimen | + + | Blood | + + documented in this encounter Visit Diagnoses Not on filedocumented in this encounter"
--- OUTSIDE RECORDS SUMMARY | ~2020-02-03 | XMS | Encounter Summary ---
Demographics + + + | Address | [address] | | | [place] [address] | + + + | Home Phone [...] Team Providers + +------+ + | Care Putty Mixer And Applier Name | Role | Phone | + [...] Description | +--------+---------+ + + + | 11/30/ | Office | [facility] | Aung Jimenez PA | NEHEMIAH on CPAP (Primary | | 2017 | Visit | SLEEP DISORDER [address] | [address] | Dx) | | | | [address] [place] | [place] | | | | | [place] [address] | [address] | | | | | [phone] | | | +--------+---------+ + + + [...] + + + | Blood Pressure | 112/62 | 11/30/2016 11:00 AM | | | | | PDT | | + + + + + | Pulse | 63 | 11/30/2016 11:00 AM | | | | | PDT | | + + + + + | Temperature | - | - | | + + + + + | Respiratory Rate | 14 | 11/30/2016 11:00 AM | | | | | PDT | | + + + + + | Oxygen Saturation | 97% | 11/30/2016 11:00 AM | | | | | PDT | | + + + + + | Inhaled Oxygen | - | - | | | Concentration | | | | + + + + + | Weight | 70.3 kg (155 lb) | 11/30/2016 11:00 AM | | | | | PDT | | + + + + + | Height | - | - | | + + + + + | Body Mass Index | 25.79 | 11/18/2016 1:41 PM | | | [...] of this encounter Patient Instructions Patient Instructions Aung Jimenez PA - 11/30/2016 11:45 AM PDTGo to [facility] to see Domenico to get a nasal mask or nasal pillows (full face mask blowing air into eyes). documented in this encounter Progress Notes Aung Jimenez PA - 11/30/2016 11:45 AM PDT Subjective: Patient ID: Le Rollins is a 71 y.o. female. HPI last office visit: 11/18/2016 date of polysomnography: 09/29/2016 AHI: 20 (98.7 in supine) RDI: 21.7 O2%: 84% with 2.3 minutes below 88% Machine type: ResMed AirSense 10 Mask type: ResMed F-20 full face mask DME: [facility] in [place] pressure: 5-20 cm Median: 9.2 cm 95%: 12.3 cm maximum: 13.2 cm Nights using CPAP: 12/12 % of nights >4 hours: 83% average usage (all nights): 6:06 average usage (nights used): 6:06 AHI: 4.4 Le comes in for CPAP compliance. She is doing well with her CPAP, wearing it regularly f or the duration of her sleep. She feels that she is doing well, but has noticed that her fu ll face mask is blowing air into her eyes. She considers herself a mouth breather, but only at night. She would likely do well with a nasal mask or nasal pillows. Her son is also us ing CPAP and has made some suggestions to her, including a mask change. She understands the importance of treating her apnea and is committed to using her CPAP, especially since her C VA in 09/2015. She is comfortable with her current settings and is now comfortable making ad justments to the settings, if necessary. I have discussed the download in detail. This shows that her sleep apnea is controlled, wi th an AHI of 4.4. It also shows that her leaks are controlled. Review of Systems Objective: BP 112/62 | Pulse 63 | Resp 14 | Wt 70.3 kg (155 lb) | SpO2 97% | BMI 25.79 kg/m Physical Exam Assessment: Problem #1: OBSTRUCTIVE SLEEP APNEA ([id number]-J72.33) This is controlled with CPAP. She is doing well with her CPAP, but has had some problems w ith air blowing into her eyes from her full face mask. Plan: 1. She is to continue with CPAP indefinitely. 2. I have recommended that she go to [facility] to look at other mask options. I will follow up again in 1 month, sooner prn. Twenty-five minutes were spent [id number] , with the majority of time spent in [...]
--- OUTSIDE RECORDS SUMMARY | ~2020-02-03 | XMS | Encounter Summary ---
Demographics + + + | Address | [address] | | | [place] [address] | + + + | Home Phone [...] + | Author | [facility] | | | and [place] | + + + | Organization | [facility] | | | and [...] Team Providers + +------+ + | Care Flaker Tender Name | Role | Phone | + [...] Description | +--------+---------+ + + + | 03/11/ | Office | [facility] | Aung Jimenez PA | NEHEMIAH on CPAP (Primary | | 2017 | Visit | SLEEP DISORDER [address] | [address] | Dx); | | | | [address] [place] | [place] | Cerebrovascular | | | | [place] [address] | [address] | accident (CVA), | | | | [phone] | | unspecified | | | | | | mechanism (HCC) | +--------+---------+ + + + Social [...] + + + | Blood Pressure | 134/78 | 03/11/2017 10:22 AM | | | | | PST | | + + + + + | Pulse | 65 | 03/11/2017 10:22 AM | | | | | PST | | + + + + + | Temperature | - | - | | + + + + + | Respiratory Rate | 14 | 03/11/2017 10:22 AM | | | | | PST | | + + + + + | Oxygen Saturation | 98% | 03/11/2017 10:22 AM | | | | | PST | | + + + + + | Inhaled Oxygen | - | - | | | Concentration | | | | + + + + + | Weight | 72.3 kg (159 lb 6.3 | 03/11/2017 10:22 AM | | | | oz) | PST | | + + + + + | Height | - | - | | + + + + + | Body Mass Index | 26.52 | 02/11/2017 2:31 PM | | | | | PDT [...] encounter Progress Notes Aung Jimenez PA - 03/11/2017 10:30 AM PST Subjective: Patient ID: Le Rollins is a 71 y.o. female. HPI last office visit: 11/30/2016 date of polysomnography: 09/29/2016 AHI: 20 (98.7 in supine) RDI: 21.7 O2%: 84% with 2.3 minutes below 88% Machine type: ResMed AirSense 10 Mask type: nasal mask DME: [facility] in [place] pressure: 5-20 cm Median: 10.0 cm 95%: 11.8 cm maximum: 12.5 cm Nights using CPAP: 04/06 100/101 % of nights >4 hours: 83% 86% average usage (all nights): 6:06 6:15 average usage (nights used): 6:06 6:19 AHI: 2.7 Le comes in for CPAP compliance. She is doing well with her CPAP, wearing it regularly f or the duration of her sleep. She feels that she is doing much better since changing from a full face mask to a nasal mask. This has been more comfortable for her. She understands t he importance of treating her apnea and is committed to using her CPAP, especially since her CVA in 09/2015. She had another stroke in December,. She was not able to come to her follow up appointment in December because of the stroke. She is now living in [facility]. She has not been cleared to drive and was not able to get transportation to our office until today. I have discussed the download in detail. This shows that her sleep apnea is controlled, wi th an AHI of 4.4. It also shows that her leaks are controlled. It shows that she is wearin g her CPAP >4 hours for 76% of the nights during 30 consecutive nights. Review of Systems Objective: BP 134/78 | Pulse 65 | Resp 14 | Wt 72.3 kg (159 lb 6.3 oz) | SpO2 98% | BMI 26.52 kg/ m Physical Exam Assessment: Problem #1: OBSTRUCTIVE SLEEP APNEA (RML60-A46.33) This is controlled with CPAP. She is doing well with her CPAP usage. She has used her CPA P >4 hours for 76% of the nights for 30 consecutive nights. Problem #2: CEREBROVASCULAR ACCIDENT (CVA) (ICD 10-I63.9) She had a stroke in December,. Plan: 1. She is to continue with CPAP indefinitely. 2. Touch base with medical supplier twice per year to ensure that all equipment is satisfa ctory. I will follow up again in 10 months, sooner prn. Fifteen minutes were spent [id number], with the majority of time spent in counseling. Aung Jimenez PA-C cc: Wilson Lin MD documented in this enco unter Plan of Treatment Not on filedocumented as of this encounter Visit Diagnoses + + | Diagnosis | + + | NEHEMIAH on CPAP - Primary Obstructive sleep apnea (adult) (pediatric) | + + | Cerebrovascular accident (CVA), unspecified mechanism (HCC) | + + documented in this encounter"
--- OUTSIDE RECORDS SUMMARY | ~2020-02-03 | XMS | Encounter Summary ---
Demographics + + + | Address | [address] | | | [place] [address] | + + + | Home Phone | | + + + | Preferred Language | Unknown | + + + | Marital Status | Single | + + + | Rastafarian Affiliation | [id number] | + + + [...] Providers + +------+ + | Care Cloth Bleaching Range Operator Chief Name | Role | Phone | + [...] | +--------+ + + + + | 09/02/ | Hospital | [facility] | Maral Alfonso, | Coronary artery | | 2019 | Encounter | MED CTR NUCLEAR | PNEUDRAULIC SYSTEMS MECHANIC [address] | disease involving | | | | MEDICINE [address] [place], [place] | [place] coronary | | | | [place], | [address] | artery of [place] | | | | [place] [address] | | heart with angina | | | | [phone] | | pectoris (HCC); | | | [...] | | | | fibrillation (HCC) | +--------+ + + + + [...] documented as of this encounter Procedure Notes Alicia Gonzáles MD - 10/06/2018 9:24 AM PDTAssociated Order(s): MOBILE CARDIAC TELEMETR Y (MCT)Mobile cardiac telemetry from 09/02 until 10/02/2018. Baseline EKG shows sinus rhythm with heart rate ranging from 45-113 beats minute. PACs, atrial couplets, PSVT with heart rate of 150 bpm were noted. PVCs, ventricular couplets, 15 beat runs nonsustained ventricular tachycardia, heart rate o f 125 bpm were shown. Tdocumented in this encounter Plan of Treatment Not on filedocumented as of this encounter Procedures + +--------+ + + + | Procedure Name | Priori | Date/Time | Associated Diagnosis | Comments | | | ty | | | | + +--------+ + + + | MOBILE CARDIAC | Routin | 10/06/2018 | Coronary artery | Results for this | | TELEMETRY (MCT) | e | 9:24 AM | disease involving | procedure are in the | | | | PDT | [place] coronary | results section. | | | | | artery of [place] | | | | | | heart with angina | | | | | | pectoris (HCC) | | | | | | Aortic valve | | | | | | stenosis, etiology | | | | | | of cardiac valve | | | | | | disease unspecified | | | | | | Essential | | | | | | hypertension with | | | | | | goal blood pressure | | | | | | less than 140/90 | | | | | | Paroxysmal atrial | | | | | | fibrillation (HCC) | | + +--------+ + + + documented in this encounter Results Mobile Cardiac Telemetry (10/06/2018 9:24 AM PDT) + + + | Narrative | Performed At | + + + | Alicia Gonzáles MD 10/06/2018 9:27 Mobile cardiac | [facility] | | telemetry from 09/02 until [...] + + | 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
--- OUTSIDE RECORDS SUMMARY | ~2020-02-03 | XMS | Encounter Summary ---
Demographics + + + | Address | [address] | | | [place] [address] | + + + | Home Phone [...] Team Providers + +------+ + | Care Air Brake Rigger Name | Role | Phone | + [...] + | 07/20/ | Office | [facility] | Aung Jimenez PA | NEHEMIAH on CPAP (Primary | | 2019 | Visit | SLEEP DISORDER [address] | [address] | Dx) | | | | [address] [place] [place] | [place] | | | | | [place] [address] | [address] | | | | | [phone] | | | +--------+---------+ + + + [...] + + + | Blood Pressure | 98/70 | 07/20/2018 10:18 AM | | | | | PDT | | + + + + + | Pulse | 65 | 07/20/2018 10:18 AM | | | | | PDT | | + + + + + | Temperature | - | - | | + + + + + | Respiratory Rate | 16 | 07/20/2018 10:18 AM | | | | | PDT | | + + + + + | Oxygen Saturation | 97% | 07/20/2018 10:18 AM | | | | | PDT | | + + + + + | Inhaled Oxygen | - | - | | | Concentration | | | | + + + + + | Weight | 73.8 kg (162 lb 11.2 | 07/20/2018 10:18 AM | | | | oz) | PDT | | + + + + + | Height | - | - | | + + + + + | Body Mass Index | 27.93 | 07/01/2018 2:04 PM | | | [...] encounter Progress Notes Aung Jimenez PA - 07/20/2018 10:30 AM PDT Subjective: Patient ID: Le Rollins is a 73 y.o. female. HPI last office visit: 01/06/2018 date of polysomnography: 09/29/2016 AHI: 20 (98.7 in supine) RDI: 21.7 O2%: 84% with 2.3 minutes below 88% Machine type: ResMed AirSense 10 Mask type: nasal mask DME: [facility] in [place] pressure: 5-20 cm Median: 7.3 cm 95%: [...] She does not have any questions or concerns regard ing her CPAP or equipment. Her main challenge recently has been recovering from falling down the stairs at her son's h ouse. She had no significant injuries from the fall. She was in [place] and had to stay for 6 days. She did not have her CPAP with her and wasn't able to wear it during that time. She is back home and using CPAP again. She is doing pretty well with her recovery. I have discussed the download in detail. [...] has been difficult. She has moved from [facility] to [place]. This is working much better for her, but her son would like her to mo ve back to [place]. Review of Systems Objective: BP 98/70 | Pulse 65 | Resp 16 | Wt 73.8 kg (162 lb 11.2 oz) | SpO2 97% | BMI 27.93 kg/ m Physical Exam Assessment: Problem #1: OBSTRUCTIVE SLEEP APNEA (FIA82-H06.33) This is controlled with CPAP. She is doing well with her CPAP usage. Plan: 1. She is to continue with CPAP indefinitely. 2. Touch base with medical supplier twice per year to ensure that all equipment is satisfa ctory. I will follow up again in 1 year, sooner prn. Fifteen minutes were spent [id number], wit h the majority of time spent [...]
--- OUTSIDE RECORDS SUMMARY | ~2020-02-03 | XMS | Encounter Summary ---
Demographics + + + | Address | [address] | | | [place] [address] | + + + | Home Phone | | + + + | Preferred Language | Unknown | + + + | Marital Status | Single | + + + | Spiritism Affiliation | [id number] | + + + [...] Team Providers + +------+ + | [facility] Worker Name | Role | Phone | + [...] | | | [address] | [place] [address] | | | | | [place] [address] | | | | | | [phone] | | | +--------+ + + + [...] this | | BILATERAL | e | 12:05 PM | | procedure are in the | | | | PDT | | results section. | + +--------+ + + + documented in this encounter Results VAS Carotid Duplex Bilateral (10/01/2015 12:05 PM PDT) + + | Specimen | [...]
--- OUTSIDE RECORDS SUMMARY | ~2020-02-03 | XMS | Encounter Summary ---
Demographics + + + | Address | [address] | | | [place] [address] | + + + | Home Phone | | + + + | Preferred Language | Unknown | + + + | Marital Status | Single | + + + | Orthodox Affiliation | 1013 | + + + | Race | White | + + + | Ethnic Group | Not or | + + + Author + + + | Author | [facility] | | | and [place] | + + + | Organization | [facility] | | | [...] Providers + +------+ + | Care Lead Technologist In Cytogenetics Name | Role | Phone | + [...] | | | | | | | HI TOTAL | | | | | | [...] + + + + | 07/15/ | Anesthesia | SHERI ALEXANDRA | Denny Cade | | | 2016 | Event | [facility] | MD Serina [address] | | | | | [address] | [address] [place] | | | | | [place], [place] | [address] | | | | | [address] | | | | | | [phone] | | | +--------+ + + + + Anesthesia Record + + + + + | Procedure Name | Responsible | Anesthesia Start | Anesthesia Stop Time | | | Anesthesiologist | Time | | + + + + + | Right Total Knee | Denny Cade, | 07/16/15 1205 | 07/16/15 1341 | | Arthroplasty (Right | MD | | | | Knee) | | | | + + + + + +----+---+ + + | Da | T | Event | Comment | | te | i | | | | | m | | | | | e | | | +----+---+ + + | 03 | 1 | An Checkout | Pre-use anesthesia machine/equipment checkout. | | /2 | 1 | | | | 2/ | 4 | | | | 20 | 5 | | | | 16 | | | | +----+---+ + + | | 1 | Pre-Procedu | | | | 1 | ral Timeout | | | | 4 | Completed | | | | 6 | | | +----+---+ + + | | 1 | An Start | | | | 1 | Data | | | | 4 | | | | | 6 | | | +----+---+ + + | | 1 | Block Start | | | | 1 | | | | | 4 | | | | | 7 | | | +----+---+ + + | | 1 | AN Block | | | | 2 | End | | | | 0 | | | | | 2 | | | +----+---+ + + | | 1 | an stop | | | | 2 | data | | | | 0 | | | | | 3 | | | +----+---+ + + | | 1 | an [place] now | | | | 2 | | | | | 0 | | | | | 4 | | | +----+---+ + + | | 1 | An Start | Reassessment prior to anesthesia induction/procedure. | | | 2 | | | | | 0 | | | | | 5 | | | +----+---+ + + | | 1 | Antibiotic | | | | 2 | Given | | | | 1 | | | | | 1 | | | +----+---+ + + | | 1 | Preoxygenat | | | | 2 | ed | | | | 1 | | | | | 2 | | | +----+---+ + + | | 1 | An | | | | 2 | Induction | | | | 1 | | | | | 2 | | | +----+---+ + + | | 1 | An | | | | 2 | Intubation | | | | 1 | | | | | 5 | | | +----+---+ + + | | 1 | AN Bite | | | | 2 | Block | | | | 1 | | | | | 5 | | | +----+---+ + + | | 1 | Paradise | | | | 2 | 43-degrees | | | | 1 | | | | | 5 | | | +----+---+ + + | | 1 | An Tourn | | | | 2 | Inflated | | | | 2 | | | | | 2 | | | +----+---+ + + | | 1 | First | | | | 2 | Inc/Proc St | | | | 2 | | | | | 4 | | | +----+---+ + + | | 1 | An Tourn | | | | 3 | Deflated | | | | 0 | | | | | 5 | | | +----+---+ + + | | 1 | | | | | 3 | | | | | 1 | | | | | 5 | | | +----+---+ + + | | 1 | Paradise off | | | | 3 | | | | | 2 | | | | | 2 | | | +----+---+ + + | | 1 | An Stop | Patient handed off to recovery nurse. | | | 4 | | | | | 1 | | | +----+---+ + + +------+ | Meds | +------+ + + + | Name | Total | + + + | midazolam | 2 mg | + + + | lidocaine 2% (PF) | 380 mg | + + + | propofol | 150 mg | + + + | phenylephrine (Injection) | 600 mcg | + + + | ropivacaine 0.5% | 10 mL | + + + | bupivacaine 0.5% + epi 1:200k | 10 mL | + + + | ondansetron (ZOFRAN) injection 4 | 4 mg | | mg | | + + + | dexmedetomidine (Bolus) | 30 mcg | + + + | HYDROmorphone | 1 mg | + + + | ceFAZolin (ANCEF, KEFZOL) 2 g in | 2 g | | dextrose 5% 50 mL IVPB | | + + + | ePHEDrine | 25 mg | + + + | lactated ringers (LR) infusion | 1,550 mL | + + + + + | Name | + + | N2O Flow Rate (L/Min) | + + | O2 Flow Rate (L/Min) | + + | Insp O2 | + + | Exp SEV | + + | Air Flow Rate (L/Min) | + + + + | No blood administrations on file. | + + +--------+ + + + | Type | Details | Placement | Removal | +--------+ + + + | Periph | 07/16/15; 1121; [id number] | 07/16/15 1121 by | 07/18/15 0843 by | | eral | catheter system; 18 gauge, 1 04/29 | Bryce Ordoñez RN | Venecia Escamilla RN | | IV | in length; distraction, | | | | | intradermal injection, tolerated | | | | | well; 07/18/15; 0843 | | | +--------+ + + + | Airway | Placement Date: 07/16/15; | 07/16/15 1215 by | 07/16/15 1340 by | | | Placement Time: 1215; Mask | Denny Cade, | Shiloh Coppola RN | | | Ventilation: EZ; Attempts: 1; | MD | | | | Airway Type: laryngeal mask, | | | | | non-disposable; Size: 4; Tube | | | | | Reference Point: secure and | | | | | patent; Placement Check: breath | | | | | sounds equal bilaterally, exhaled | | | | | CO2 detection device; Removal: | | | | | removed by RN, per order; Removal | | | | | Date: 07/16/15; Removal Time: | | | | | 1340 | | | +--------+ + + + [...] Postprocedure Evaluation - Denny Cade MD - 07/16/2015 1:45 PM PDTForma tting of this note might be different from the original. ANESTHESIA POSTANESTHESIA EVALUATION Le Rollins 70 y.o. female 1945 [id number] Procedure(s) Right Total Knee Arthroplasty (Right Knee) Filed Vitals: 07/16/15 1000 07/16/15 1333 07/16/15 1335 BP: 145/60 85/35 84/38 Pulse: 69 65 67 Temp: 37 C (98.6 F) 37.2 C (99 F) Resp: 16 10 10 SpO2: 99% 98% 93% Cooperates? Yes Mental Status Performs simple tasks. Respiratory Satisfactory - Airway patent (self maintained). Cardiovascular Satisfactory Blood pressure and heart rate acceptable Temperature Satisfactory Pain Satisfactory N/V Control Satisfactory Hydration Satisfactory No signs of dehydration Complications None apparent Electronically signed by Denny Cade MD 07/16/2015 13:45 [facility] nesthesia Procedu re Notes - Denny Cade MD - 07/16/2015 12:58 PM PDTAssociated Order(s): ANE NERVE BL OCK CATHETER NOTE; ANE NERVE BLOCK CATHETER NOTEPerineural Procedure Note 07/16/2015 11:53 Nerve block: femoral Continuous block with catheter: No Provider requested procedure: Dr. Jordin Fernandez MD Indication: postoperative analgesia and acute pain management Preprocedure check: patient identified, preevaluation including airway assessment complete, consent obtained, monitors applied, timeout performed, risks/benefits discussed, procedure and rescue equipment checked and reassessment prior to procedure Patient position: supine Preparation: chlorhexidine/isopropyl alcohol Introducer used: no Local anesthetic infiltration volume in ml: 3 mL Technique: ultrasound Radiology image stored in patient's chart: ultrasound Needle size: 21 g Needle length: 4 in Depth of nerve/plexus: 6 cm Medication administered through: needle and incremental injection Negative findings: no blood aspirated, no CSF and no paresthesia Total volume of local anesthetic solution administered: 15 Ease of procedure: 1 Attempts: easy Comments: Risks and Benefits of Right Femoral Nerve Block discussed with patient. Sh e agrees to proceed and answered all questions. The site was marked and a time out taken and then the site prepped with Chlorhexidine for 30 seconds. Utilizing the ultrasound to identi fy the nerve and artery structures. A 22 ga Stimuplex needle was advanced under direct and c ontinuous guidance. The tip of the needle was continuously followed and positioned below the ligament next to the femoral nerve and artery structures. Fifteen (15) ml of local anesthet ic. (5cc of 0.5% Naropin, 10 cc of 0.05% Marcaine with epi and 5 cc of 2% Lidocaine) was inj ected in a divided dose manner in 3cc incremental injections. Aspiration of the needle was t aken after each injection and a pause. There was no heme or paresthesias noted. The patient tolerated the procedure well, there were no complications noted. [id number] Please see anesthesia record or flowsheet for vital sign documentation and see anesthesia r ecord or MAR for all medication documentation. Performing provider: DENNY CADE Electronically Signed by: Denny Cade MD ESig date/time: 12:58 Perineural Procedure Note 07/16/2015 11:54 Nerve block: sciatic Continuous block with catheter: No Provider requested procedure: Dr. Jordin Fernandez MD Indication: postoperative analgesia and acute pain management Preprocedure check: patient identified, procedure and rescue equipment checked, risks/benef its discussed, timeout performed, monitors applied, reassessment prior to procedure, consent obtained and preevaluation including airway assessment complete Patient position: supine Preparation: chlorhexidine/isopropyl alcohol Introducer used: no Local anesthetic infiltration volume in ml: 3 mL Technique: ultrasound Radiology image stored in patient's chart: ultrasound Needle: non-insulated and short-bevel Needle size: 21 g Depth of nerve/plexus: 6 cm Medication administered through: needle and incremental injection Negative findings: no blood aspirated, no CSF and no paresthesia Total volume of local anesthetic solution administered: 15 Ease of procedure: 1 Attempts: easy Comments: Risks and benefits of sciatic nerve block discussed with patient. She agrees to vinicius blackmon, answered all questions. Site marked and time out taken. The Right popliteal area wa s surveyed with the ultrasound to determine the location of the popliteal nerve and artery c omplex. The nerve was then followed up the leg approximately 10 cm. The lateral portion of t he thigh was then prepped with Chlorhexidine for 30 seconds. Approximately 3cc of 2% lidocai ne without epinephrine was used the anesthetize the skin and subcutaneous structures. Under direct and continuous ultrasound guidance the 22 ga Stimuplex needle was directed towards th e nerve structures. Continuous visualization of the tip of the needle was accomplished. 15 m l of local anesthetic (5 cc of 0.5% Naropin, 5 cc of 0.5% Marcaine with epi and 5 cc of 2% L idocaine plain) was injected in a 3 cc divided dose manner with aspiration of the needle aft er each injection. The patient tolerated the procedure well with no complication noted. [id number] Please see anesthesia record or flowsheet for vital sign documentation and see anesthesia r ecord or MAR for all medication documentation. Performing provider: DENNY CADE Electronically Signed by: Denny Cade MD ESig date/time: 13:00 nesthesia Preproc edure Evaluation - Denny Cade MD - 07/16/2015 10:42 AM PDTFormatting of this note m ight be different from the original. ANESTHESIA PREANESTHESIA EVALUATION Le Rollins 70 y.o. female 1945 [id number] Procedure(s): Right Total Knee Arthroplasty (Right Knee) Medical history, anesthesia, medications, allergy, NPO status verified histories reviewed. Labs reviewed. Review of Systems / Med History Anesthesia History No anesthesia complications. (-) PONV, malignant hyperthermia Cardiovascular (+) hypertension(-) CAD, past OH (+) Valvular disease (+) PVD: , Exercise tolerance >4 ME TS Pulmonary (+) asthma(-) shortness of breath(+) sleep apnea: known Neurology (+) CVA Endocrine (+) Diabetes: type 2, NIDDM (+) obesity: BMI (30-39) Other (+) arthritis Cancer Negative except where noted below. Physical Exam Airway MP II, TM >3 FB, Mouth opening >2 FB. Neck: full ROM, extends >30 degrees. Jaw protrus ion normal. Dental Grossly normal except where noted below.; (+) Age appropriate dentition. CV Rhythm regular. Rate Normal. (-) murmur, carotid bruit, peripheral edema, JVD and weak pulses. Pulm Clear to auscultation bilaterally. (-) wheezing, rhonchi, decreased breath sounds, rales and stridor. Neuro Grossly normal. Anesthesia Plan ASA 3 Type: General and regional. Induction: Intravenous. Potential problems: Difficult airway. Monitors: Standard ASA monitors. Consent statement:Anesthetic plan, alternatives, risks and benefits discussed with patient and family. Risks discussed included (but were not limited to): dental injury, pain, sore throat, infec tion, voice injury, muscle aches, nausea, respiratory events, failed or inadequate block, bl eeding, nerve damage, pneumothorax, intravascular injection, seizures. Consenting person understands and agrees to proceed. PARQ. Risks and benefits of general anesthetic plus blocks discussed with patient and available family members. They agree to proceed, answered all questions.. Electronically Signed by: Denny Cade MD ESig date/time: 07/16/2015 11:43 documented in this encounter Plan of Treatment Not on filedocumented as of this encounter Procedures + +--------+ + + + | Procedure Name | Priori | Date/Time | Associated Diagnosis | Comments | | | ty | | | | + +--------+ + + + | ANE NERVE BLOCK | Routin | 07/16/2015 | | Results for this | | CATHETER NOTE | e | 1:02 PM | | procedure are in the | | | | PDT | | results section. | + +--------+ + + + documented in this encounter Results Anesthesia Perineural Note (07/16/2015 1:02 PM PDT) + + + | Narrative | Performed At | + + + | Denny Cade MD 07/16/2015 13:02 Perineural Procedure | | | Note 07/16/2015 11:53 Nerve block: femoral Continuous block with | | | catheter: No Provider requested procedure: Dr. Jordin Fernandez MD | | | Indication: postoperative analgesia and acute pain management | | | Preprocedure check: patient identified, preevaluation including | | | airway assessment complete, consent obtained, monitors applied, | | | timeout performed, risks/benefits discussed, procedure and rescue | | | equipment checked and reassessment prior to procedure Patient | | | position: supine Preparation: chlorhexidine/isopropyl alcohol | | | Introducer used: no Local anesthetic infiltration volume in ml: 3 mL | | | Technique: ultrasound Radiology image stored in patient's chart: | | | ultrasound Needle size: 21 g Needle length: 4 in Depth of | | | nerve/plexus: 6 cm Medication administered through: needle and | | | incremental injection Negative findings: no blood aspirated, no CSF | | | and no paresthesia Total volume of local anesthetic solution | | | administered: 15 Ease of procedure: 1 Attempts: easy Comments: | | | Risks and Benefits of Right Femoral Nerve Block discussed with | | | patient. She agrees to proceed and answered all questions. | | | The site was marked and a time out taken and then the site prepped | | | with Chlorhexidine for 30 seconds. Utilizing the ultrasound to | | | identify the nerve and artery structures. A 22 ga Stimuplex needle | | | was advanced under direct and continuous guidance. The tip of the | | | needle was continuously followed and positioned below the ligament | | | next to the femoral nerve and artery structures. Fifteen (15) ml of | | | local anesthetic. (5cc of 0.5% Naropin, 10 cc of 0.05% Marcaine with | | | epi and 5 cc of 2% Lidocaine) was injected in a divided dose manner | | | in 3cc incremental injections. Aspiration of the needle was taken | | | after each injection and a pause. There was no heme or paresthesias | | | noted. The patient tolerated the procedure well, there were no | | | complications noted. [id number] Please see anesthesia | | | record or flowsheet for vital sign documentation and see anesthesia | | | record or MAR for all medication documentation. Performing | | | provider: DENNY CADE Electronically Signed by: Denny | | | Ayo Cade MD ESig date/time: | | | 07/16/2015 12:58 Perineural Procedure Note 07/16/2015 11:54 | | | Nerve block: sciatic Continuous block with catheter: No Provider | | | requested procedure: Dr. Jordin Fernandez MD Indication: postoperative | | | analgesia and acute pain management Preprocedure check: patient | | | identified, procedure and rescue equipment checked, risks/benefits | | | discussed, timeout performed, monitors applied, reassessment prior | | | to procedure, consent obtained and preevaluation including airway | | | assessment complete Patient position: supine Preparation: | | | chlorhexidine/isopropyl alcohol Introducer used: no Local anesthetic | | | infiltration volume in ml: 3 mL Technique: ultrasound Radiology | | | image stored in patient's chart: ultrasound Needle: non-insulated and | | | short-bevel Needle size: 21 g Depth of nerve/plexus: 6 cm | | | Medication administered through: needle and incremental injection | | | Negative findings: no blood aspirated, no CSF and no paresthesia | | | Total volume of local anesthetic solution administered: 15 Ease of | | | procedure: 1 Attempts: easy Comments: Risks and benefits of | | | sciatic nerve block discussed with patient. She agrees to proceed, | | | answered all questions. Site marked and time out taken. The Right | | | popliteal area was surveyed with the ultrasound to determine the | | | location of the popliteal nerve and artery complex. The nerve was | | | then followed up the leg approximately 10 cm. The lateral portion of | | | the thigh was then prepped with Chlorhexidine for 30 seconds. | | | Approximately 3cc of 2% lidocaine without epinephrine was used the | | | anesthetize the skin and subcutaneous structures. Under direct and | | | continuous ultrasound guidance the 22 ga Stimuplex needle was | | | directed towards the nerve structures. Continuous visualization of | | | the tip of the needle was accomplished. 15 ml of local anesthetic (5 | | | cc of 0.5% Naropin, 5 cc of 0.5% Marcaine with epi and 5 cc of 2% | | | Lidocaine plain) was injected in a 3 cc divided dose manner with | | | aspiration of the needle after each injection. The patient tolerated | | | the procedure well with no complication noted. [id number] | | | Please see anesthesia record or flowsheet for vital sign | | | documentation and see anesthesia record or MAR for all medication | | | documentation. Performing provider: DENNY CADE | | | Electronically Signed by: Denny Cade MD | | | ESig date/time: 07/16/2015 13:00 | | + + + Anesthesia Perineural Note (07/16/2015 1:02 PM PDT) + + + | Narrative | Performed At | + + + | Denny Cade MD 07/16/2015 13:02 Perineural Procedure | | | Note 07/16/2015 11:53 Nerve block: femoral Continuous block with | | | catheter: No Provider requested procedure: Dr. Jordin Fernandez MD | | | Indication: postoperative analgesia and acute pain management | | | Preprocedure check: patient identified, preevaluation including | | | airway assessment complete, consent obtained, monitors applied, | | | timeout performed, risks/benefits discussed, procedure and rescue | | | equipment checked and reassessment prior to procedure Patient | | | position: supine Preparation: chlorhexidine/isopropyl alcohol | | | Introducer used: no Local anesthetic infiltration volume in ml: 3 mL | | | Technique: ultrasound Radiology image stored in patient's chart: | | | ultrasound Needle size: 21 g Needle length: 4 in Depth of | | | nerve/plexus: 6 cm Medication administered through: needle and | | | incremental injection Negative findings: no blood aspirated, no CSF | | | and no paresthesia Total volume of local anesthetic solution | | | administered: 15 Ease of procedure: 1 Attempts: easy Comments: | | | Risks and Benefits of Right Femoral Nerve Block discussed with | | | patient. She agrees to proceed and answered all questions. | | | The site was marked and a time out taken and then the site prepped | | | with Chlorhexidine for 30 seconds. Utilizing the ultrasound to | | | identify the nerve and artery structures. A 22 ga Stimuplex needle | | | was advanced under direct and continuous guidance. The tip of the | | | needle was continuously followed and positioned below the ligament | | | next to the femoral nerve and artery structures. Fifteen (15) ml of | | | local anesthetic. (5cc of 0.5% Naropin, 10 cc of 0.05% Marcaine with | | | epi and 5 cc of 2% Lidocaine) was injected in a divided dose manner | | | in 3cc incremental injections. Aspiration of the needle was taken | | | after each injection and a pause. There was no heme or paresthesias | | | noted. The patient tolerated the procedure well, there were no | | | complications noted. [id number] Please see anesthesia | | | record or flowsheet for vital sign documentation and see anesthesia | | | record or MAR for all medication documentation. Performing | | | provider: DENNY CADE Electronically Signed by: Denny | | Kirstie Cade MD ESig date/time: | | | 07/16/2015 12:58 Perineural Procedure Note 07/16/2015 11:54 | | | Nerve block: sciatic Continuous block with catheter: No Provider | | | requested procedure: Dr. Jordin Fernandez MD Indication: postoperative | | | analgesia and acute pain management Preprocedure check: patient | | | identified, procedure and rescue equipment checked, risks/benefits | | | discussed, timeout performed, monitors applied, reassessment prior | | | to procedure, consent obtained and preevaluation including airway | | | assessment complete Patient position: supine Preparation: | | | chlorhexidine/isopropyl alcohol Introducer used: no Local anesthetic | | | infiltration volume in ml: 3 mL Technique: ultrasound Radiology | | | image stored in patient's chart: ultrasound Needle: non-insulated and | | | short-bevel Needle size: 21 g Depth of nerve/plexus: 6 cm | | | Medication administered through: needle and incremental injection | | | Negative findings: no blood aspirated, no CSF and no paresthesia | | | Total volume of local anesthetic solution administered: 15 Ease of | | | procedure: 1 Attempts: easy Comments: Risks and benefits of | | | sciatic nerve block discussed with patient. She agrees to proceed, | | | answered all questions. Site marked and time out taken. The Right | | | popliteal area was surveyed with the ultrasound to determine the | | | location of the popliteal nerve and artery complex. The nerve was | | | then followed up the leg approximately 10 cm. The lateral portion of | | | the thigh was then prepped with Chlorhexidine for 30 seconds. | | | Approximately 3cc of 2% lidocaine without epinephrine was used the | | | anesthetize the skin and subcutaneous structures. Under direct and | | | continuous ultrasound guidance the 22 ga Stimuplex needle was | | | directed towards the nerve structures. Continuous visualization of | | | the tip of the needle was accomplished. 15 ml of local anesthetic (5 | | | cc of 0.5% Naropin, 5 cc of 0.5% Marcaine with epi and 5 cc of 2% | | | Lidocaine plain) was injected in a 3 cc divided dose manner with | | | aspiration of the needle after each injection. The patient tolerated | | | the procedure well with no complication noted. [id number] | | | Please see anesthesia record or flowsheet for vital sign | | | documentation and see anesthesia record or MAR for all medication | | | documentation. Performing provider: DENNY CADE | | | Electronically Signed by: Denny Cade MD | | | ESig date/time: 07/16/2015 13:00 | | + + + documented in this encounter Visit Diagnoses Not on filedocumented in this encounter Administered Medications + +--------+ +-------+------+------+ | Medication Order | MAR | Action | Dose | Rate | Site | | | Action | Date | | | | + +--------+ +-------+------+------+ | bupivacaine 0.5%-EPINEPHrine | Given | 07/16/19 | 5 mLs | | | | 1:200,000 (PF) injection PRN, | | 16 11:57 | | | | | Other, Starting 07/16/15 at | | AM PDT | | | | | 1157, Anesthesia Intra-op | | | | | | + +--------+ +-------+------+------+ +-------+ +-------+---+---+ | Given | 07/16/19 | 5 mLs | | | | | 16 11:51 | | | | | | AM PDT | | | | +-------+ +-------+---+---+ +---+---+ | | | +---+---+ + +-------+ +-----+---+---+ | ceFAZolin (ANCEF, KEFZOL) 2 g | Given | 07/16/19 | 2 g | | | | in dextrose 5% 50 mL IVPB 2 g, | | 16 12:11 | | | | | Intravenous, Administer over 30 | | PM PDT | | | | | Minutes, Prior to Incision, | | | | | | | Starting 07/16/15 at 1027, For | | | | | | | 1 dose, Give within one hour | | | | | | | prior to incision., Pre-op, | | | | | | | Indications: Surgical Prophylaxis | | | | | | + +-------+ +-----+---+---+ +---+---+ | | | +---+---+ + +-------+ +--------+---+---+ | dexmedetomidine (PRECEDEX) in | Given | 07/16/19 | 10 mcg | | | | sodium chloride bolus infusion | | 16 12:52 | | | | | Intravenous, PRN, Starting Tue | | PM PDT | | | | | 07/16/15 at 1252, Anesthesia | | | | | | | Intra-op | | | | | | + +-------+ +--------+---+---+ +-------+ +--------+---+---+ | Given | 07/16/19 | 10 mcg | | | | | 16 12:47 | | | | | | PM PDT | | | | +-------+ +--------+---+---+ | Given | 07/16/19 | 10 mcg | | | | | 16 12:43 | | | | | | PM PDT | | | | +-------+ +--------+---+---+ +---+---+ | | | +---+---+ + +-------+ +---------+---+---+ | ePHEDrine 50 mg/mL injection | Given | 07/16/19 | 12.5 mg | | | | PRN, Starting 07/16/15 at | | 16 1:06 | | | | | 1306, Anesthesia Intra-op | | PM PDT | | | | + +-------+ +---------+---+---+ +-------+ +---------+---+---+ | Given | 07/16/19 | 12.5 mg | | | | | 16 12:55 | | | | | | PM PDT | | | | +-------+ +---------+---+---+ +---+---+ | | | +---+---+ + +-------+ +------+---+---+ | HYDROmorphone (DILAUDID) 2 | Given | 07/16/19 | 1 mg | | | | mg/mL injection Intravenous, | | 16 12:11 | | | | | PRN, Pain, Starting 07/16/15 | | PM PDT | | | | | at 1211, Anesthesia Intra-op | | | | | | + +-------+ +------+---+---+ +---+---+ | | | +---+---+ + + + +---+-------+---+ | lactated ringers (LR) infusion | Rate/Dos | 07/16/19 | | 100 | | | at 10-100 mL/hr, Intravenous, | e Change | 16 11:55 | | mL/hr | | | CONTINUOUS, Starting e 07/16/15 | | PM PDT | | [...] lidocaine (PF) 2% injection | Given | 07/16/19 | 60 mg | | | | PRN, Starting Wed07/16/15 at | | 16 12:12 | | | | | 1149, Anesthesia Intra-op | | PM PDT | | | | + +-------+ +-------+---+---+ +-------+ +--------+---+---+ | Given | 07/16/19 | 100 mg | | | | | 16 11:58 | | | | | | AM PDT | | | | +-------+ +--------+---+---+ | Given | 07/16/19 | 60 mg | | | | | 16 11:56 | | | | | | AM PDT | | | | +-------+ +--------+---+---+ +---+---+ | | | +---+---+ + +-------+ +------+---+---+ | midazolam (VERSED) 1 mg/mL | Given | 07/16/19 | 2 mg | | | | injection Intravenous, PRN, | | 16 11:47 | | | | | Anxiety, Starting 07/16/15 at | | AM PDT | | | | | 1147, Anesthesia Intra-op | | | | | | + +-------+ +------+---+---+ +---+---+ | | | +---+---+ + +-------+ +------+---+---+ | ondansetron (ZOFRAN) injection | Given | 07/16/19 | 4 mg | | | | 4 mg 4 mg, Intravenous, ONCE | | 16 12:12 | | | | | PRN, Nausea, Starting 07/16/15 | | PM PDT | | | | | at 1027, For 1 dose, Pre-op | | | | | | + +-------+ +------+---+---+ +---+---+ | | | +---+---+ + +-------+ +---------+---+---+ | phenylephrine 100 mcg/mL | Given | 07/16/19 | 100 mcg | | | | (PALLAVI-SYNEPHRINE) injection | | 16 1:35 | | | | | Intravenous, PRN, Starting Tue | | PM PDT | | | | | 07/16/15 at 1306, Anesthesia | | | | | | | Intra-op | | | | | | + +-------+ +---------+---+---+ +-------+ +---------+---+---+ | Given | 07/16/19 | 100 mcg | | | | | 16 1:22 | | | | | | PM PDT | | | | +-------+ +---------+---+---+ | Given | 07/16/19 | 100 mcg | | | | | 16 1:15 | | | | | | PM PDT | | | | +-------+ +---------+---+---+ +---+---+ | | | +---+---+ + +-------+ +--------+---+---+ | propofol (DIPRIVAN) injection | Given | 07/16/19 | 150 mg | | | | PRN, Starting 07/16/15 at | | 16 12:12 | | | | | 1212, Anesthesia Intra-op | | PM PDT | | | | + +-------+ +--------+---+---+ +---+---+ | | | +---+---+ + +-------+ +-------+---+---+ | ropivacaine (NAROPIN) 5 mg/mL | Given | 07/16/19 | 5 mLs | | | | (0.5%) injection PERINEURAL, | | 16 11:57 | | | | | PRN, Starting 07/16/15 at | | AM PDT | | | | | 1151, Anesthesia Intra-op | | | | | | + +-------+ +-------+---+---+ +-------+ +-------+---+---+ | Given | 07/16/19 | 5 mLs | | | | | 16 11:51 | | | | | | AM PDT | | | | +-------+ +-------+---+---+ +---+---+ | | | +---+---+ documented in this encounter"
--- NOTE | 2020-02-04 11:28 | EKG ---
[facility] [address] [facility] [place] [address] Signed Normal sinus rhythm Normal ECG When compared with ECG of 12-OCT-2019 22:49, No significant change was found Confirmed by TOMY MORRISON MD ([id number]) on 02/04/2020 11:28:05 AM Electronically Signed By: TOMY MORRISON MD 02/04/20 1128 PATIENT NAME: TERRELL BECERRIL [place] Electrocardiogram DATE OF : 47 PHYSICIAN: TOMY MORRISON MD REPORT #: [id number] REPORT IS CONFIDENTIAL AND NOT TO BE RELEASED WITHOUT AUTHORIZATION
== END 2020-02-03 21:07 | disposition home or self-care (01) ==
LOC: ED 16:22
DX: R07.89 Other chest pain (principal); I10 Essential (primary) hypertension; E11.9 Type 2 diabetes mellitus without complications; J45.909 Unspecified asthma, uncomplicated; Z86.73 Personal history of transient ischemic attack (TIA), and cerebral infarction without residual deficits; G47.30 Sleep apnea, unspecified; Z88.8 Allergy status to other drugs, medicaments and biological substances; Z91.030 Bee allergy status; Z91.013 Allergy to seafood; Z79.899 Other long term (current) drug therapy
CPT/HCPCS: 71046; 80053; 83735; 84484; 85025; 93005; 93010; 99285-25

== ENCOUNTER 2020-03-29 00:17 | Inpatient (IN) | payer MEDICARE, OTHER ==
[~2020-03-29] VITALS: Ht 162.6 cm; Wt 75.6 kg
[~2020-03-29 00:17] MED LIST changes: +JANUVIA100 MG PO; -JANUVIA25 MG PO; +LEVOXYL100 MCG PO; -LEVOXYL137 MCG PO; +MAGNESIUM250 M1 PO; -MAGNESIUM500 MG PO; -TYLENOL325 MG PO; +TYLOPHEN500 MG PO
--- NOTE | 2020-03-29 06:24 | NUR ---
0510 PATIENT ARRIVED TO THE UNIT VIA STETCHER. TRANSFERED VIA 2 PERSON STAFF ASSIST. PATIENT USED BEDPAN TO VOID. VS STABLE. PRBC INFUSING ON PUMP, IV SITE WNL. PATIENT PROVIDED HISTORY. AAOX4. DENIES PAIN. ARRIVED ON 2L NC. TITRATED TO RA. LUNG SOUNDS ARE CLEAR. ABD IS SOFT, BOWEL SOUNDS ACTIVE. NO NAUSEA. SKIN GROSSLY INTACT. 1+ EDEMA NOTED IN ALISA LOWER EXTREMTITIES. IVF FLUIDS AND SCHEUDLED MEDS PROVIDED PER ORDER. 0550 MD IN TO SEE PATIENT.
--- NOTE | 2020-03-29 07:49 | CONS ---
[facility] [address] [place], [place] [address] Signed DATE OF CONSULTATION: 03/29/2020 CHIEF COMPLAINT: Rectal bleeding. HISTORY OF PRESENT ILLNESS: Terrell is a 75-year-old diabetic vascular patient on both Eliquis and Plavix. She resides at a local-assisted living facility. Apparently, she was having upper abdominal pain and some diarrhea. She had been sent up to [facility] to Dr. Georges Haque for upper and lower endoscopy on 03/25/2020. I reviewed those two reports, she had a biopsy from her Emily-en-Y limb as well as the gastric pouch and her distal esophagus. She also had her Schatzki's ring dilated. She apparently has a small hiatal hernia. The colonoscopy had biopsies randomly from the right, left and transverse colon and then a small 4 mm polyp next to the appendiceal orifice, which had a clip placed. She went back on her Plavix and Eliquis two days later and unfortunately quite a bit of blood. She was dizzy and had to be brought to the emergency room. She was given a unit of blood and is feeling a lot better and been admitted to the Internal Medicine Service. I have been asked to see her in consultation. Apparently, she just had another bowel movement and it was brown. Otherwise, she has been hemodynamically stable here in the ICU, but apparently had some low blood pressures in the ER. PAST MEDICAL HISTORY: Hypertension, diabetes, angina, asthma, fibromyalgia, osteoarthritis, myocardial infarction x2 with cardiac stents, stroke, right carotid artery stent, obstructive sleep apnea requiring CPAP, and diverticulosis. PAST SURGICAL HISTORY: Includes her gastric bypass surgery, appendectomy, open cholecystectomy, sinus surgery, hysterectomy, bladder suspension, thyroid surgery x2, right knee surgery, colonoscopy and upper endoscopy and right carotid stent. SOCIAL HISTORY: She does not smoke or drink. She lives in an assisted living setting here in [facility] is her our son at [phone]. Dr. Della Plata is her primary care provider, Dr. Georges Haque is her knowledge architect. FAMILY HISTORY: Not reviewed. REVIEW OF SYSTEMS: She had 10 systems reviewed and she spoke to me mainly about some of her previous surgeries. Electronically Signed By: VALERIY GILLESPIE MD 03/29/20 0749 PATIENT NAME: TERRELL BECERRIL [place] CONSULTATION DATE OF : 47 REPORT #: [id number] PHYSICIAN: VALERIY GILLESPIE MD PCP: DELLA PLATA MD REPORT IS CONFIDENTIAL AND NOT TO BE RELEASED WITHOUT AUTHORIZATION [facility] [address] [place], [place] [address] Signed ALLERGIES: Shellfish, clonidine, lispro insulin, gluten, pioglitazone. MEDICATIONS: Vitamin B12, Cymbalta, isosorbide mononitrate, levothyroxine, nitroglycerin, atorvastatin, multivitamin, Tylenol, Eliquis, Plavix, epinephrine, magnesium oxide, Protonix, Seroquel, metoprolol, calcium, vitamin D, fluticasone, and Januvia. PHYSICAL EXAMINATION: VITAL SIGNS: Her blood pressure is 107/48, heart rate 55, respiratory rate 15, temperature is 97.9. She is 93% on room air, up to 100% on nasal cannula. She is 5 feet 4 inches at 60 kg. GENERAL: Terrell is a 75-year-old female, who is pale, but she is alert, awake and interactive and very pleasant. She is hemodynamically stable here in the ICU. LUNGS: Generally clear to auscultation bilaterally. HEART: Regular rate and rhythm with a chronic 3/6 systolic ejection murmur. ABDOMEN: Soft, flat, nontender. LABORATORY DATA: Her white blood count is 8.9, hemoglobin 8.1, neutrophils 69, platelets 176, BUN 19, creatinine 1.02, glucose 252. COVID is negative. INR 1.5, PTT 26. Lactic acid 2.6. Magnesium 1.4. Troponin negative. Albumin is 2.6. Blood cultures x2 are pending. RADIOGRAPHIC STUDIES: The chest x-ray is unremarkable. The CT scan of the chest is unremarkable. I reviewed the upper endoscopy from 03/25/2020 and showed a small hiatal hernia with Schatzki's ring that was dilated and biopsies were taken from the Emily-en-Y limb, the gastric pouch and the distal esophagus. Also, a colonoscopy on 03/25/2020 was reviewed and a 4 mm polyp was removed next to the periappendiceal orifice and clipped and then cold biopsies were taken of the right, left and transverse colon for the history of diarrhea. ASSESSMENT/PLAN: Terrell is a 75-year-old female, who presents with gastrointestinal bleed and anemia following her upper and lower endoscopies just five days ago. Unfortunately, she is on Plavix and Eliquis currently. Of course, those will be held. She has been placed on Protonix. She has received 1 unit of packed red blood cells. I explained to Terrell, it is denney that we check her upper endoscopy this morning and I will talk to my Anesthesia provider here shortly and will work her in. If that is negative, she will be able to take clear liquids today along with her medications and even a bowel prep and if necessary we can perform an endoscopy later today or in the morning. I reviewed all this with her in detail and at her request, I did call her son to leave a short message. She has expressed understanding and agrees to above plan. Electronically Signed By: VALERIY GILLESPIE MD 03/29/20 0749 PATIENT NAME: TERRELL BECERRIL [place] CONSULTATION DATE OF : 47 REPORT #: [id number] PHYSICIAN: VALERIY GILLESPIE MD PCP: DELLA PLATA MD REPORT IS CONFIDENTIAL AND NOT TO BE RELEASED WITHOUT AUTHORIZATION [address] [address] Signed MD CORI Mora/PRAVEENL /[id number] cc: MD Valeriy Benitez MD Robert G Johnson, MD Copies: GEORGES HAQUE MD, ANDREW L MD JOHNSON, ROBERT D DMD ~ Electronically Signed By: VALERIY GILLESPIE MD 03/29/20 0749 PATIENT NAME: TERRELL BECERRIL [place] CONSULTATION DATE OF : 47 REPORT #: [id number] PHYSICIAN: VALERIY GILLESPIE MD PCP: DELLA PLATA MD REPORT IS CONFIDENTIAL AND NOT TO BE RELEASED WITHOUT AUTHORIZATION
--- NOTE | 2020-03-29 07:53 | NUR ---
03/29/20 0753 Karmen Moreno 0744 PATIENT ARRIVES TO CCU 127 SLEEPING. OPENS EYES WITH VERBAL STIMULI. UNABLE TO STAY AWAKE WITHOUT STIMULATION. RESP EVEN AND UNLABORED, NC AT 6 LITERS, DECREASED TO 2 LITERS. 0750 PATIENT SLEEPING, AWAKENS WITH VERBAL STIMULI, BACK TO SLEEP WITHOUT STIMULATION. RESP EVEN AND UNLABORED, SATS 100% ON 2 LITERS. REPORT TO SONG Jj RN.
--- NOTE | 2020-03-29 08:00 | NUR ---
PATIENT RETURNS FROM PACU AFTER UPPER SCOPE THIS AM WITH DR. GILLESPIE. PT TOLERATED WELL. PT AWAKENS, BUT IS DROWSY. OVERALL SKIN COLOR OF PATIENT IS PALE. PATIENT HAS RECEIVED 1 UNIT OF PRBCs THUS FAR, WITH MORE ON HOLD IF NEEDED. HR IN THE 50s, SINUS. ASSESSMENT COMPLETE. PT HAS LOUD MURMUR NOTED ON AUSCULTATION. PT ON 2 L NC AT THIS TIME, BUT WILL TITRATE OFF RADHA. PT ORIENTED TO CALL LIGHT AND INSTRUCTED TO CALL FOR ANY NEEDS. CONTINUE TO MONITOR.
--- NOTE | 2020-03-29 08:22 | EKG ---
[facility] [address] [facility] [place], [place] [address] Signed Sinus bradycardia Otherwise normal ECG When compared with ECG of 03-FEB-2020 16:30, QT has lengthened Confirmed by BRIAN QUINONEZ MD ([id number]) on 03/29/2020 8:22:25 AM Electronically Signed By: BRIAN QUINONEZ MD 03/29/20821 PATIENT NAME: TERRELL BECERRIL [place] Electrocardiogram DATE OF : 47 PHYSICIAN: BRIAN QUINONEZ MD REPORT #: [id number] REPORT IS CONFIDENTIAL AND NOT TO BE RELEASED WITHOUT AUTHORIZATION
[2020-03-29] MEDS ORDERED: CHOLESTYRAMINE P4 GM PO (09:42)
[2020-03-29] MEDS ORDERED: DICYCLOMINE HCL10 MG PO (09:44)
[2020-03-29] MEDS ORDERED: CYMBALTA20 MG PO (09:46)
[2020-03-29] MEDS ORDERED: NEURONTIN100 MG PO (09:47)
--- NOTE | 2020-03-29 09:48 | OR ---
[facility] [address] [place], [place] [address] Signed DATE OF OPERATION: 03/29/2020 SURGEON: Valeriy Gillespie MD PREOPERATIVE DIAGNOSES: 1. Gastrointestinal bleed. 2. Status post upper and lower endoscopy on 03/25/2020 with multiple biopsies. 3. Anemia. POSTOPERATIVE DIAGNOSES: 1. Emily limb/gastric pouch anastomotic ulcer. 2. Nonbleeding biopsy sites in Emily limb and gastric pouch. 3. Healed biopsy site, distal esophagus. 4. visible remaining Schatzki's ring. PROCEDURE: EGD without biopsies. ESTIMATED BLOOD LOSS: None. INDICATIONS: Terrell is a 75-year-old diabetic patient with significant vascular disease requiring Plavix and Eliquis. She had upper and lower endoscopy on 03/25/[address] Georges Haque for upper abdominal pain and diarrhea. She had multiple biopsies, both upper and lower endoscopies. She resumed Plavix and Eliquis two days later and by the next morning was feeling weak and quite pale. She had been brought to our emergency room in the middle of the night where she was hypotensive and required IV fluids and unit of packed red blood cells. Apparently, she had a large bloody bowel movement in the ER. She had been transferred down to ICU and I have been asked to see her as a general surgeon on-call. She has been hemodynamically stable and apparently had a 2nd bowel movement, which was not bloody. I had a long discussion with Terrell and her son, Anderson. We decided to bring her down first thing this morning for an upper endoscopy to evaluate for source of her GI bleed and then possible bowel prep with a colonoscopy later today or in the morning. She understands upper and lower endoscopy quite well. She understands there is risk including, but not limited to gas bloating, crampy abdominal pain, bleeding, perforation requiring surgery, and missed diagnosis. Also because of her advanced age and medical conditions and current situation, we asked an anesthesia provider to help us with increased monitoring and sedation with propofol. She and her son had expressed understanding and wished to proceed. Electronically Signed By: VALERIY GILLESPIE MD 03/29/20 0948 PATIENT NAME: TERRELL BECERRIL [employer] [employer]PERATIVE REPORT DATE OF : 47 REPORT #: [id number] PHYSICIAN: VALERIY GILLESPIE MD PCP: DELLA PLATA MD REPORT IS CONFIDENTIAL AND NOT TO BE RELEASED WITHOUT AUTHORIZATION [facility] [address] [place], [place] [address] Signed DESCRIPTION OF PROCEDURE: Terrell was taken down to our endoscopy suite and placed in a supine semi-recumbent position. The posterior oropharynx was anesthetized with Hurricaine spray. A bite block was utilized for the case. She was given IV sedation with propofol per our nurse stripper color. The adult gastroscope was introduced and advanced under direct visualization of camera without difficulty. We went far out into the Emily limb, which was quite unremarkable. There was just a little mucus and a couple small areas of blood mixed in with the mucus. We found the biopsy site in the Emily limb and it was healing well without any bleeding. Back at the anastomosis, she has an ulcer that appears to be the clear source of her bleeding. It is not currently bleeding now. The blind end of the Emily limb is quite healthy. We saw a biopsy site in the gastric pouch and it is also healing quite well without any bleeding. She does have a small hiatal hernia as described previously. The GE junction was unremarkable. Really, no Xie's mucosa, no distal esophagitis. We did not visibly see a Schatzki's ring having previously been dilated several days ago. We saw no break in that mucosa. We could not find a biopsy site anywhere in the distal esophagus. The middle and upper esophagus were unremarkable. After this, the gas was suctioned out and the gastroscope removed. Terrell tolerated the procedure quite well. RECOMMENDATIONS: Terrell will go back to our ICU, remain on clear liquids along with her proton-pump inhibitor. We will plan on a bowel prep today with colonoscopy tomorrow to evaluate the colon. I suspect it will be fine. It looks like the source of her bleeding is the anastomotic ulcer. Valeriy Gillespie MD ALB/MODL /[id number] cc: MD Della Benitez MD Andrew L Bower, MD Electronically Signed By: VALERIY GILLESPIE MD 03/29/20 0948 PATIENT NAME: TERRELL BECERRIL [employer] OPERATIVE REPORT DATE OF : 47 REPORT #: [id number] PHYSICIAN: VALERIY GILLESPIE MD PCP: DELLA PLATA MD REPORT IS CONFIDENTIAL AND NOT TO BE RELEASED WITHOUT AUTHORIZATION [address] [address] Signed Copies: GEORGES HAQUE MD, ROBERT D DMD BOWER, ANDREW L MD ~ Electronically Signed By: VALERIY GILLESPIE MD 03/29/20 0948 PATIENT NAME: TERRELL BECERRIL [employer]PERATIVE REPORT DATE OF : 47 REPORT #: [id number] PHYSICIAN: VALERIY GILLESPIE MD PCP: DELLA PLATA MD REPORT IS CONFIDENTIAL AND NOT TO BE RELEASED WITHOUT AUTHORIZATION
--- NOTE | 2020-03-29 09:48 | NUR ---
PATIENT UP TO BSC TO ATTEMPT TO HAVE BM. PT IS HAVING FOUL SMELLING FLATULENCE AND IS STARTING HER BOWEL PREP, FOR TOMORROW'S LOWER SCOPE WITH DR. GILLESPIE. PT TOLERATED GETTING UP TO BSC WELL WITHOUT AND ABLE TO HAVE A BM THAT DID HAVE MAROON FORMED STOOL AND URINE. PT DENIES DIZZINESS. NON SLIP SOCKS APPLIED TO PATIENT. PT BACK TO BED AND CALL LIGHT WITHIN REACH.
[2020-03-29] MEDS ORDERED: XYZAL5 MG PO (09:49)
[2020-03-29] MEDS ORDERED: ZESTORETIC 20-1 EAC1 PO (09:51)
[2020-03-29] MEDS ORDERED: SIMILASAN EYE (09:56)
--- NOTE | 2020-03-29 12:00 | NUR ---
IN PATIENT'S ROOM FOR ASSESSMENT AND VITAL SIGNS. PT IS WORKING ON DRINKING HER BOWEL PREP MEDICATION AND TOLERATING WELL. PT CONTINUES TO HAVE FOUL SMELLING GAS AND STOOL WITH THIS PREP. UP TO BSC, USING CALL LIGHT APPROPRIATELY. PT REPORTS STARTING TO NOTICE FEELING DIZZY WHEN CHANGING POSITIONS. HBG TO BE DRAWN AT 1400. CONTINUE TO MONITOR.
--- NOTE | 2020-03-29 12:54 | NUR ---
PT ALERT, RECOGNIZED ME FROM PREVIOUS ADMISSIONS. PT SEEMED THANKFUL I CAME BY. SHARED WITH ME HOW SHE FEELS GOD IS WORKING IN HER FAMILY AND HER LIFE- EVEN HERE TODAY. PT HAD OCCASION TO HAVE SOME DIFFICULTY GETTING HER WORDS OUT IN COMPLETE SENTENCES. PT REQUESTED PRAYER, LEFT G.POST. WILL FOLLOW
--- NOTE | 2020-03-29 14:29 | NUR ---
LAB IN ROOM TO DRAW HGB LEVEL. CBG 116 AT THIS TIME. PT FINISHES FIRST BOTTLE OF GATORADE/MIRALAX COMBO. PT STATES THAT THE LAST COUPLE TIMES HE WAS UP TO BSC, SHE DID FEEL "A LITTLE DIZZY." PT NOW WORKING ON SECOND BOTTLE. WILL CONTINUE TO MONITOR.
--- NOTE | 2020-03-29 15:55 | NUR ---
PATIENT SLEEPING. DID NOT AWAKEN. PATIENT HAS BEEN HAVING BOWEL PREP AND HAS BEEN UP AND DOWN OFTEN. STAFF STATES SHE PLANS TO RETURN TO [facility] AT DISCHARGE, NO KNOWN BARRIERS AT THIS TIME.
--- NOTE | 2020-03-29 17:00 | NUR ---
Patient sleeping in bed, respirations even and unlabored. Fluids infusing at 75 mls/hr. Call light within reach.
--- NOTE | 2020-03-29 18:05 | NUR ---
Patient's son arrives to room to visit. Patient sleeping in bed but rouses easily to son walking into room. Fluids infusing at 75 mls/hr. Patient has second bottle of bowel prep at bedside, states "I'm working on this!" Denies needs, call light within reach.
--- NOTE | 2020-03-29 18:49 | NUR ---
PATIENT'S SON IN ROOM WITH PT. PT UP TO BSC AGAIN. STILL HAS ABOUT HALF OF LAST MIRALAX BOTTLE TO FINISH THIS EVENING. IVF CONTINUE AT 75 ML/HR. PLAN TO HAVE LOWER SCOPE IN THE AM. CONTINUE TO MONITOR.
--- NOTE | 2020-03-29 20:02 | NUR ---
PATIENT ASSISTED UP TO THE BSC. NEW ATTENDS AND GOWN PROVIDED. PATIENT VOIDED AND HAD SMALL AMOUNT OF LIQUID STOOL. TOLERATED TRANSFER WITHOUT ISSUE. PATIENT BACK INTO BED. TOLERATING ROOM AIR, LUNGS CLEAR. ABD SOFT, NONTENDER. BOWEL SOUNDS ACTIVE. PATIENT ALMOST FINISHED WITH BOWEL PREP. IV FLUIDS PER ORDER, SITE WNL. VS STABLE. EVENING PROTONIX PER ORDER. 2000 LABS DRAWN. ACCU CHECK WNL. RT CALLED TO SET UP HOME CPAP.
--- NOTE | 2020-03-29 21:00 | NUR ---
ASSISTED PATIENT UP TO BSC. PATIENT HAD MIXED LIQUID RED STOOL AND URINE. FINISHED BOWEL PREP DRINK. TOLERATING ACTIVITY. IV FLUIDS PER ORDER, SITE WNL. VS STABLE.
--- NOTE | 2020-03-29 22:00 | NUR ---
PATIENT UP TO BSC WITH ASSISTANCE FROM GURWINDER VANN
--- NOTE | 2020-03-29 23:49 | NUR ---
PATIENT UP TO THE BSC. 100 MLS DARK RED LIQUID STOOL. PATIENT TOLERATED WELL. VS STABLE. PATIENT WEARING HOME CPAP AND REPORTS SLEEPING WELL IN-BETWEEN NEEDING TO USE THE BATHROOM.
--- NOTE | 2020-03-30 02:00 | NUR ---
SCHEDULED LAB DRAW. ACCU CHECK WNL. PATIENT ASSISTED UP TO BSC. VOIDED WITH NO STOOL. PATIENT RETURNED TO BED. CPAP IN PLACE. IV FLUIDS PER ORDER, SITE WNL. PATIENT DENIED FEELING DIZZY WITH ACTIVITY.
--- NOTE | 2020-03-30 05:15 | NUR ---
PATIENT UP TO BSC. LARGE LIQUID STOOL NOTED IN ATTEND AND 400 MLS IN BSC. LIQUID IS THICK AND DARK RED. ASSISTED PATIENT TO CLEAN AND PUT NEW ATTENDS ON. PATIENT FEELS DIZZY THIS MORNING. VS STABLE.
--- NOTE | 2020-03-30 06:33 | NUR ---
DISCUSSED PATIENT'S ONGOING BLEEDING AND DIZZINESS WITH MD. ORDERS FOR 1 UNIT PRBC NOW RECEIVED. VERIFIED VIA REPEAT BACK.
--- NOTE | 2020-03-30 06:48 | NUR ---
1 UNIT PRBC STARTED PER POLICY. VERIFIED WITH RIVERA VANN. PATIENT VERBALIZED UNDERSTANDING OF ADVERSE REACTION TO BLOOD. VS STABLE.
--- NOTE | 2020-03-30 08:39 | NUR ---
PATIENT AWAKE IN BED. VITAL SIGNS DOCUMENTED. CALL LIGHT WITHIN REACH. NO FUTHER NEEDS AT THIS TIME.
--- NOTE | 2020-03-30 08:57 | NUR ---
PATIENT SEEN BY DR. GILLESPIE AND TAKEN TO THE O.R. FOR LOWER SCOPE AND POSSIBLE UPPER SCOPE. SECOND IV STARTED IN LT. UPPER FOREARM. PT FINISHED SECOND UNIT OF BLOOD AT 0850.
--- NOTE | 2020-03-30 09:18 | NUR ---
PATIENT ASSESSMENT COMPLETED. PATIENT STATED SHE HAD ACHING LEFT EPIGASTRIC PAIN. SHE ALSO DESCRIBED LEFT SHOULDER PAIN THAT SUBSIDED AROUND 0800. PRBC RUNNING AT 150/HR IN RT. IV SITE. LT. MURMUR AUSCULTATED. LUNGS DIM IN BASES BILATERALLY. PT. HAD 300ML OF BLOODY, WATERY STOOL. AMBULATED TO BEDSIDE COMMODE AND TOLERATED WELL AND DENIES DIZZINESS. PT'S SKIN IS PALE AND COOL. GIVEN WARM BLANKETS AND ASSISTED WITH SWABBING HER MOUTH.
--- NOTE | 2020-03-30 10:00 | NUR ---
PATIENT RECIEVED FROM O.R. PT. DROWSY BUT ORIENTED AND RESPONSIVE. RIGHT IV SITE DC'D AND LEAKING.
--- NOTE | 2020-03-30 10:34 | NUR ---
PATIENT RECEIVED FROM O.R. PT. DROWSY BUT RESPONSIVE AND ORIENTED. RIGHT IV SITE DC'D AND IV FLUIDS STARTED. WILL CONTINUE TO MONITOR.
--- NOTE | 2020-03-30 11:00 | NUR ---
CBC DRAWN FROM NEW IV SITE IN LEFT AC AREA. PT TOLERATED WELL. PT IS NOW RESTING. PLAN OF CARE DISCUSSED.
--- NOTE | 2020-03-30 11:16 | NUR ---
PATIENT VOIDED 300ML YELLOW URINE WITH STREAKS OF BURGUNDY BLOOD. PT. AMBULATED TO BED SIDE COMMODE AND TOLERATED WELL. MEDS GIVEN. PT. LEFT RESTING IN BED AND DENIED FURTHER NEEDS.
--- NOTE | 2020-03-30 11:40 | NUR ---
PATIENT'S SON CALLED AND WILL BE VISITING WITHIN THE HOUR. PT. UPDATED. PT. DENIES PAIN AND IS RESTING IN BED WITH CALL LIGHT IN REACH.
--- NOTE | 2020-03-30 12:23 | NUR ---
PATIENT ASSESSMENT COMPLETED. PT. ALERT AND ORIENTED. IV SITE WNL AND IVF RUNNING AT 75ML/HR. PT. BROUGHT A RECLINER AND ASKED TO SIT UP. DRANK SMALL SIPS OF WATER AND TOLERATED WELL. PASSING GAS AND BOWEL TONES ACIVE. PT. LEFT RESTING IN BED WITH HER SON PRESENT.
--- NOTE | 2020-03-30 14:00 | NUR ---
PATIENT GIVEN A SHOWER BY RENETTA SIMS AND HAD A SMALL BURGUNDY COLOR VOID/BM. BLOOD GLUCOSE CHECKED AND WAS 108. PT. TOLERATED SHOWER WELL. PT. BEDDING CHANGED AND PT. LEFT RESTING IN BED WITH CPAP SET UP AND IN REACH
--- NOTE | 2020-03-30 14:21 | NUR ---
PATIENT SHOWERED. CALL LIGHT WITHIN REACH NO FUTHER NEEDS AT THIS TIME.
--- NOTE | 2020-03-30 15:08 | NUR ---
PATIENT USED CALL LIGHT APPROPRIATELY FOR ASSISTANCE WITH BP CUFF. PT. ASSISTED WITH PUTTING ON HER CPAP AND GIVEN WARM BLANKETS. DENIED FURTHER NEEDS AND LEFT RESTING IN BED WITH CALL LIGHT IN REACH.
--- NOTE | 2020-03-30 15:23 | NUR ---
PATIENT USED CALL LIGHT APPROPRIATELY FOR HELP TO ADJUST CPAP. IVF BAG CHANGED AND PT. LEFT RESTING IN BED WITH CALL LIGHT IN REACH.
--- NOTE | 2020-03-30 15:48 | NUR ---
PATIENT ASSESSMENT COMPLETED. PT. DENIES PAIN. IV SITE WNL AND IVF RUNNING AT 75. PT. SKIN IS COLD AND PALE. BROUGHT WARM BLANKETS. PT. ASSISTED WITH REPOSITIONING TO HER SIDE WITH PILLOWS.
--- NOTE | 2020-03-30 17:15 | NUR ---
PATIENT LABS DRAWN AND IV ATTEMPTED IN RIGHT FOREARM. PT. TOLERATED WELL.
--- NOTE | 2020-03-30 18:32 | NUR ---
PATIENT ASSISTED WITH TURNING THE TV ON. SHE ATE 50% OF HER DINNER AND TOLERATED WELL. DENIES PAIN OR FURTHER NEEDS.
--- NOTE | 2020-03-30 19:30 | NUR ---
ASSISTED PATIENT UP TO THE BATHROOM. PATIENT BRUSHED HER TEETH AND WASHED HER FACE. PATIENT IS STEADY ON HER FEET AND DENIES FEELING DIZZY OR LIGHTHEADED. HR 80-90'S WITH ACTIVITY. PATIENT VOIDED, NO SIGNS OF BLOOD. PATIENT RETURNED TO BED. CPAP SET UP FOR THE NIGHT. IV FLUIDS PER ORDER, SITE WNL. PATIENT DENIED PAIN OR NAUSEA. CALL LIGHT IN REACH.
--- NOTE | 2020-03-30 22:41 | NUR ---
PATIENT REQUEST ASSISTANCE TO THE BATHROOM. PATIENT AMBULATED WELL, VOIDED 400 MLS CLEAR URINE. NO SIGNS OF BLEEDING. PATIENT FEELS STEADY ON HER FEET. LABS DRAWN FROM IV SITE. RT IN TO ASSIST WITH CPAP SETTINGS. PATIENT WEARING CPAP AND READY FOR SLEEP. CALL LIGHT IN REACH.
--- NOTE | 2020-03-31 01:15 | NUR ---
ASSISTED PATIENT UP TO THE BATHROOM. PATIENT REPORTS BEING HUNGRY. JELLO PROVIDED PER REQUEST. PATIENT DENIES ANY PAIN. IV FLUIDS PER ORDER, SITE WNL. VS STABLE. NO SIGNS OF BLEEDING WITH TOILETING.
--- NOTE | 2020-03-31 03:28 | NUR ---
ASSISTED PATIENT UP TO THE BATHROOM. PATIENT DENIES ANY CONCERNS. GOOD URINE OUTPUT. NO SIGNS OF BLEEDING. VS STABLE. IV FLUIDS PER ORDER, SITE WNL.
--- NOTE | 2020-03-31 06:00 | NUR ---
PATIENT UP TO THE BATHROOM WITH SBA. PATIENT TOLERATED WELL. DENIES PAIN OR NAUSEA. MINIMAL LIGHTHEADED. VS STABLE.
--- NOTE | 2020-03-31 07:50 | NUR ---
THIS RN IN PTS ROOM TO GET PT UP TO THE CHAIR AND TO THE RESTROOM THIS AM. PT STABLE ON HER FEET WHEN SHE STANDS AND TRANSFERS, PT DOES NOT REPORT ANY DIZZYNESS WHEN STANDING THIS AM. PT UP TO CHAIR WITH CALL LIGHT AND ALL PERSONAL BELONGINGS WITHIN REACH. PT HAS NOTHING ELSE TO REPORT THIS AM
--- NOTE | 2020-03-31 09:30 | NUR ---
THIS RN TOOK A PHONE CALL FROM WHO GAVE THIS RN ORDERS TO SALINE [facility]OCK PT AND TO ADVANCE PTS DIET TO SOFT.
--- NOTE | 2020-03-31 09:40 | NUR ---
TOOK CLEAR LIQUIDS WELL. TO BR TO VOID 350 ML OF CLEAR YELLOW URINE. USED WALKER WHEN AMBULATING. CONTINUES TO C/O PAIN IN UPPER LATERAL L RIB AREA. C/O HEADACHE. THIS REPORTED TO ERIKA Walton RN WHO WILL NOTIFY
--- NOTE | 2020-03-31 09:50 | NUR ---
THIS RN CALLED TO UPDATE HER ABOUT ORDERS AND HOW THE PT WAS DOING. STATED THAT SHE WILL PUT IN TRANSFER ORDERS. THIS RN ALSO ASKED FOR A VERBAL ORDER OF TYLENOL FOR PTS HEADACHE, PER VERBAL ORDER FROM THIS RN PUT IN AN ORDER FOR PT TO GET 650MG OF TYLENOL.
--- NOTE | 2020-03-31 10:42 | OR ---
[facility] [address], [place] [address] Signed DATE OF OPERATION: 03/30/2020 SURGEON: Valeriy Gillespie MD PREOPERATIVE DIAGNOSES: 1. Gastrointestinal bleed. 2. Status post esophagogastroduodenoscopy and colonoscopy with biopsies on 03/25/[address] Georges Haque. 3. Anemia. POSTOPERATIVE DIAGNOSES: 1. Minimal sigmoid diverticulosis. 2. Minimal internal hemorrhoids. 3. Nonbleeding cecal clipped. 4. Nonbleeding biopsy site sigmoid colon at 30 cm. 5. Mildly bleeding ulcer at anastomosis of the Emily limb with gastric pouch clipped x3. PROCEDURES: 1. Colonoscopy without biopsy. 2. Upper endoscopy with clip x3. INDICATIONS: Terrell is a 75-year-old female who is diabetic and with significant vascular disease requiring Plavix and Eliquis. She had upper and lower endoscopy on 03/25/[address] Georges Haque. The biopsies were taken both upper and lower endoscopies. She had been discharged to home and resumed her Plavix and Eliquis two days later. Unfortunately, she started bleeding and did have some coughing up of blood, but also had blood per rectum. She came to our emergency room and was a little hypotensive requiring some IV fluids and a unit of packed red blood cells. She was admitted to our internal medicine service. Overall, she has done well. I had been asked to see her as a general surgeon on-call. I came early that morning and we took her as our first case for her upper endoscopy yesterday. We found all the biopsy sites from the upper endoscopy. They were all healing quite nicely. The area of the Schatzki's ring that had been dilated had healed up and we could not even find a Schatzki's ring or any break in the mucosa. However, she had an anastomotic ulcer where the Emily limb is joined to the gastric pouch. It was nonbleeding at that time. Consequently, she was sent back to the ICU on clear liquid diet. We gave her a full bowel prep yesterday and overall she did fine, but by early this morning, she was having some burgundy not quite maroon-colored blood per rectum. Her hemoglobin did drop 1 g, so she received her second unit of packed red blood cells this morning. I had met again with Terrell this morning and I reviewed the Electronically Signed By: VALERIY GILLESPIE MD 03/31/20 1042 PATIENT NAME: TERRELL BECERRIL RIVERA OPERATIVE REPORT DATE OF : 47 REPORT #: [id number] PHYSICIAN: VALERIY GILLESPIE MD PCP: DELLA PLATA MD REPORT IS CONFIDENTIAL AND NOT TO BE RELEASED WITHOUT AUTHORIZATION [facility] [address] [place] [id number] Signed above findings. I explained to Terrell that we would start with her colonoscopy and if that were negative, we would repeat the upper endoscopy and go and look at that ulcer as most likely source of her bleeding. She understand endoscopy quite well. She understands there is risk including, but not limited to gas, bloating, crampy abdominal pain, bleeding, perforation requiring surgery, and missed diagnosis. Also, because of her advanced age and advanced medical issues, we do have an anesthesia provider help us with increased monitoring and sedation with propofol. She had expressed understanding and wished to proceed. DESCRIPTION OF PROCEDURE: Terrell was taken down to our endoscopy suite and placed in the left lateral decubitus position. She was given IV sedation with IV propofol per our nurse director of first impressions. A digital rectal exam was performed and there was some burgundy almost maroon-colored liquid stool on the index finger. The adult colonoscope had been introduced and advanced slowly under direct visualization of camera. We did need some extra sedation and some abdominal compression to get the scope around to the cecum itself. We could easily see the periappendiceal clip. That was healing quite nicely. No evidence of any bleeding from that site. We turned the camera twice into the terminal ileum and went up about 8-10 cm. It looked quite healthy and clean to us. With the camera in the terminal ileum, we did not see any advancing blood, but when the camera was withdrawn, we thought we saw some burgundy-colored blood since bubbles come out of the ileocecal valve. The scope was then slowly withdrawn. Overall, a prep was okay, but it could have been a little better. We went very slowly through the right and transverse colon and never could find any biopsy site. However, there was no bright red blood whatsoever. It was all burgundy to slightly maroon. As we came down left sigmoid colon we found her diverticulosis. They are moderate in size, few in number, and scattered about. We found what looks like a biopsy site at 30 cm which is healing quite nicely without any bleeding. Again, no bright red blood throughout the entire colon. The rectum itself was unremarkable. Upon retroflexion of scope, we can see she has minimal to moderate internal hemorrhoid columns. Again, no bright red blood. After this, the gas was suctioned out. The colonoscope removed. Terrell tolerated her colonoscopy quite well. Terrell was then rotated into the supine semi-recumbent position. She was maintained on IV sedation with propofol per our nurse director of first impressions. A bite block was utilized for the upper endoscopy. The adult gastroscope was introduced and again advanced under direct visualization to camera. The esophagus was completely clean once again. No evidence of any Schatzki's ring or any break in the mucosa from her dilation. We could not find any biopsy sites in the esophagus. We once again entered in small hiatal hernia and then into her gastric pouch. We turned into the Emily limb and it was perfectly fine. We went down the efferent limb about 25 cm again quite healthy. No bleeding and no blood whatsoever. Once we got back to the gastric pouch we could see the anastomotic ulcer Electronically Signed By: VALERIY GILLESPIE MD 03/31/20 1042 PATIENT NAME: TERRELL BECERRIL RIVERA OPERATIVE REPORT DATE OF : 47 REPORT #: [id number] PHYSICIAN: VALERIY GILLESPIE MD PCP: DELLA PLATA MD REPORT IS CONFIDENTIAL AND NOT TO BE RELEASED WITHOUT AUTHORIZATION [facility] [address], [place] [address] Signed and there was just a little bit of bright red blood coming from underneath the one side of the ulcer. We were fortunate that we were able to place a large clip across this area with excellent apposition of the mucosa. We placed another clip into the ulcer and one we tried to place to the midportion which was not particularly helpful. Fortunately, there was no additional bleeding from those two additional clips. We irrigated and washed the area for quite some time and we felt that the hemostasis was quite excellent. After this, the scope was slowly withdrawn. The gas was suctioned out. Terrell tolerated the procedure quite well. RECOMMENDATIONS: Terrell will be returned to the ICU and resumed on a clear liquid diet along with her proton pump inhibitor twice a day. Valeriy Gillespie MD ALB/MODL /[id number] cc: MD Della Mora MD Charles Hames, MD Copies: VALERIY GILLESPIE MD, ROBERT D DMD HAMES, CHARLES MD ~ Electronically Signed By: VALERIY GILLESPIE MD 03/31/20 1042 PATIENT NAME: TERRELL BECERRIL RIVERA OPERATIVE REPORT DATE OF : 47 REPORT #: [id number] PHYSICIAN: VALERIY GILLESPIE MD PCP: DELLA PLATA MD REPORT IS CONFIDENTIAL AND NOT TO BE RELEASED WITHOUT AUTHORIZATION
--- NOTE | 2020-03-31 12:33 | NUR ---
this rn called report to ronna rn at this time. all questions answered and pt is aware of transfer
--- NOTE | 2020-03-31 12:50 | NUR ---
C/O FEELING LIGHTHEADED. BP-150/69. HR-73. PATIENT STATES " II COULD HAVE BEEN IN THE CHAIR TO LONG. PATIENT ALSO STATES SHE HAS FELT THE SAME WAY AT HOME. PATIENT HAS AORTIC STENOSIS.
--- NOTE | 2020-03-31 13:00 | NUR ---
TO MED-SURG VIA CHAIR.
--- NOTE | 2020-03-31 13:42 | NUR ---
Patient arrives from CCU to room 123 with family member, son, at side, with SOO Benjamin. Stands from recliner and pivots to bed. Warm blanket provided. Assessment completed. Patient states some LUQ abdominal pain, tolerable. Denies other needs at this time. Vitals obtained, bed rails up X2, call light in reach.
--- NOTE | 2020-03-31 15:21 | NUR ---
PT RESTING IN BED ALERT USING CELL PHONE, SETS THAT DOWN AND TURNS ON TV. PT REPORTS NO COMPLAINTS AND NO REQUESTS.
--- NOTE | 2020-03-31 16:17 | NUR ---
Small amount of bleeding noted with BM on toilet. Patient condition remains unchanged. States she got up by herself because she did not want to bother staff. Instructed on need to call staff for safety. Verbalizes concern.
--- NOTE | 2020-03-31 18:30 | NUR ---
Admitted from CCU to room 123. Standby assist with ambulation. Small amount of blood from rectum this afternoon X1. Next time patient is up to the bathroom, no blood noted. Continues with some intermittent dizziness.
--- NOTE | 2020-03-31 19:20 | NUR ---
REPORT RECEIVED FROM DAY SHIFT RN. PT LYING IN BED ALERT AND ORIENTED. DENIES NEEDS AT THIS TIME. WHITE BOARD UPDATED. CALL LIGHT IN REACH.
--- NOTE | 2020-03-31 21:15 | NUR ---
EVENING ASSESSMENT COMPLETE. SCHEDULED MEDS ADMINISTERED PER EMAR. PT DENIES PAIN OR NAUSEA. UP TO BR WITH SBA AND FWW TO VOID. NO C/O DIZZINESS WITH AMB. GAIT STEADY. BACK TO BED, RADHA WELL. PT DENIES QUESTIONS OR CONCERS. CALL LIGHT IN REACH.
--- NOTE | 2020-04-01 00:39 | NUR ---
PT RESTING IN BED WITH EYES CLOSED, NAD.
--- NOTE | 2020-04-01 03:55 | NUR ---
PT RESTING IN BED WITH EYES CLOSED, NAD.
--- NOTE | 2020-04-01 06:29 | NUR ---
PT UP TO BR WITH SBA AND FWW. GAIT STEADY. PT DENIES DIZZINESS WITH AMB. BACK TO BED, RADHA WELL. DENIES PAIN OR NAUSEA. SCHEDULED MEDS ADMINISTERED.
--- NOTE | 2020-04-01 08:50 | NUR ---
IN ROOM SEVERAL TIMES THIS MORNING. PT STEADY ON FEET AND STATES SHE WILL CALL IF SHE GETS DIZZY. UP TO RESTROOM. ATE SOFT DIET FOR BREAKFAST. DR GILLESPIE STATED THAT HE WAS GOOD ON HIS END FOR DISCHARGE AND TOLD HER SO.
--- NOTE | 2020-04-01 09:14 | NUR ---
WAS ABLE TO REACH RN FROM [facility] BY TEXT. SHE STATES SHE DOES NOT NEED TO COME EVAL PATIENT FOR RETURN TODAY. SHE DOES REQUEST REPORT CALLED TO HER BY CASH MANAGEMENT SPECIALIST BEFORE SHE IS RELEASED.
[2020-04-01] MEDS ORDERED: METOPROLOL SUCC25 MG PO (10:35)
--- NOTE | 2020-04-01 10:44 | NUR ---
PATIENT IN BED TALKING ON PHONE. CALL LIGHT IN REACH. NO FURTHER NEEDS AT THIS TIME.
--- NOTE | 2020-04-01 12:23 | NUR ---
DISCHARGE INFO GIVEN TO PT. PT ABLE TO REPEAT BACK HER INSTRUCTIONS. SON WILL BE HERE TO PICK HER UP SHORTLY. LUNCH AT BEDSIDE. PHARM ALREADY DONE WITH EDUCATION. IV REMOVED WNL.
--- NOTE | 2020-04-01 14:36 | NUR ---
PT SITTING IN CHAIR WATCHING TV.PT MENIONED THAT SHE KNOWS SHE MADE THE RIGHT CHOICE COMING WHEN SHE DID. FEELS GOD HAS DIRECTED HER CARE AND IS VERY GLAD HER FAMILY IS STAYING WELL. P REQUESTED PRAYER, WILL FOLLOW NEEDED
== END 2020-04-01 13:15 | disposition home or self-care (01) | DRG 378 ==
LOC: ED 00:17 → CCU 00:18 → MS 04:30 → CCU 04:30 → MS 03-31 13:00
PROVIDERS: Colon & Rectal Surgery; ADMIT Internal Medicine; ATTEND Internal Medicine
PROC: 30233N1 Transfusion of Nonautologous Red Blood Cells into Peripheral Vein, Percutaneous Approach (ICD-10-PCS; 2020-03-29)
PROC: 0DJ08ZZ Inspection of Upper Intestinal Tract, Via Natural or Artificial Opening Endoscopic (ICD-10-PCS; principal; 2020-03-29 09:00)
PROC: 0DJD8ZZ Inspection of Lower Intestinal Tract, Via Natural or Artificial Opening Endoscopic (ICD-10-PCS; 2020-03-30)
PROC: 0W3P8ZZ Control Bleeding in Gastrointestinal Tract, Via Natural or Artificial Opening Endoscopic (ICD-10-PCS; 2020-03-30 09:00)
DX: K28.4 Chronic or unspecified gastrojejunal ulcer with hemorrhage (principal); D62 Acute posthemorrhagic anemia; Z20.828 Contact with and (suspected) exposure to other viral communicable diseases; E11.51 Type 2 diabetes mellitus with diabetic peripheral angiopathy without gangrene; I25.10 Atherosclerotic heart disease of native coronary artery without angina pectoris; I10 Essential (primary) hypertension; J45.909 Unspecified asthma, uncomplicated; M79.7 Fibromyalgia; G47.33 Obstructive sleep apnea (adult) (pediatric); K21.9 Gastro-esophageal reflux disease without esophagitis; E89.0 Postprocedural hypothyroidism; G89.4 Chronic pain syndrome; F32.9 Major depressive disorder, single episode, unspecified; K64.8 Other hemorrhoids; K57.30 Diverticulosis of large intestine without perforation or abscess without bleeding; I77.9 Disorder of arteries and arterioles, unspecified; I25.2 Old myocardial infarction; Z86.73 Personal history of transient ischemic attack (TIA), and cerebral infarction without residual deficits; Z98.84 Bariatric surgery status; Z95.5 Presence of coronary angioplasty implant and graft; Z88.8 Allergy status to other drugs, medicaments and biological substances; Z79.899 Other long term (current) drug therapy; Z79.01 Long term (current) use of anticoagulants; Z79.02 Long term (current) use of antithrombotics/antiplatelets
CPT/HCPCS: 36415; 36430; 71045; 71260; 80048; 80053; 82803; 83605; 83735; 83880; 84484; 85018; 85025; 85610; 85730; 86850; 86900; 86901; 86920; 93005; 93010; 99285-25; C9113; C9803; J0690; J2704; J3475; J7040; J7121; P9016; Q9967; U0003

== ENCOUNTER 2020-05-08 11:20 | Emergency (ER) | payer MEDICARE, OTHER ==
[~2020-05-08] VITALS: Ht 162.6 cm; Wt 75.5 kg
[~2020-05-08 11:20] MED LIST changes: +CHOLESTYRAMINE P4 GM PO; +CYMBALTA20 MG PO; +DICYCLOMINE HCL10 MG PO; +NEURONTIN100 MG PO; +SIMILASAN EYE; +XYZAL5 MG PO; +ZESTORETIC 20-1 EAC1 PO
[2020-05-08] MEDS ORDERED: JANUVIA100 MG PO (11:52)
[2020-05-08] MEDS ORDERED: PRINIVIL20 MG PO (11:54)
[2020-05-08] MEDS ORDERED: CARVEDILOL6.25 MG PO (11:55)
[2020-05-08] MEDS ORDERED: ELIQUIS5 MG PO (11:55)
[2020-05-08] MEDS ORDERED: GABAPENTIN100 MG PO (11:56)
[2020-05-08] MEDS ORDERED: CEPHALEXIN500 MG PO (15:04)
--- NOTE | 2020-05-08 20:41 | EKG ---
[facility] [address] [facility] [place], [place] [address] Signed Sinus bradycardia Otherwise normal ECG When compared with ECG of 29-MAR-2020 00:24, No significant change was found Confirmed by TYSON SOTELO DO ([id number]) on 05/08/2020 8:41:02 PM Electronically Signed By: TYSON SOTELO DO 05/08/202040 PATIENT NAME: TERRELL BECERRIL CENTRAL Electrocardiogram DATE OF : 47 PHYSICIAN: TYSON SOTELO DO REPORT #: [id number] REPORT IS CONFIDENTIAL AND NOT TO BE RELEASED WITHOUT AUTHORIZATION
== END 2020-05-08 16:20 | disposition home or self-care (01) ==
LOC: ED 11:20
DX: R55 Syncope and collapse (principal); N39.0 Urinary tract infection, site not specified; Z20.822 Contact with and (suspected) exposure to COVID-19; I10 Essential (primary) hypertension; E11.9 Type 2 diabetes mellitus without complications; J45.909 Unspecified asthma, uncomplicated; I25.2 Old myocardial infarction; Z86.73 Personal history of transient ischemic attack (TIA), and cerebral infarction without residual deficits; G47.30 Sleep apnea, unspecified; Z88.8 Allergy status to other drugs, medicaments and biological substances; Z91.013 Allergy to seafood; Z91.030 Bee allergy status; Z79.899 Other long term (current) drug therapy
CPT/HCPCS: 80053; 81001; 85025; 85610; 93005; 93010; 96365; 99285-25; C9803; J0696; J7030; U0003

== ENCOUNTER 2020-07-08 08:16 | Emergency (ER) | payer MEDICARE, OTHER ==
[~2020-07-08] VITALS: Ht 162.6 cm; Wt 75.5 kg
[~2020-07-08 08:16] MED LIST changes: +CARVEDILOL6.25 MG PO; +CEPHALEXIN500 MG PO; +GABAPENTIN100 MG PO; +PRINIVIL20 MG PO
[2020-07-08] MEDS ORDERED: ASPIRIN81 MG PO (09:02)
[2020-07-08] MEDS ORDERED: DULOXETINE HCL60 MG PO (09:07)
[2020-07-08] MEDS ORDERED: OYSTER SHELL C1 EA11 PO (09:20)
[2020-07-08] MEDS ORDERED: B-121000 MC2 PO (10:30)
--- NOTE | 2020-07-08 17:23 | EKG ---
[facility] [address] [facility] [place], [place] [address] Signed Normal sinus rhythm Normal ECG When compared with ECG of 08-MAY-2020 11:35, No significant change was found Confirmed by TYSON SOTELO DO ([id number]) on 07/08/2020 5:23:43 PM Electronically Signed By: TYSON SOTELO DO 07/08/20 1723 PATIENT NAME: JONETERRELL MAXWELTON Electrocardiogram DATE OF : 47 PHYSICIAN: TYSON SOTELO DO REPORT #: [id number] REPORT IS CONFIDENTIAL AND NOT TO BE RELEASED WITHOUT AUTHORIZATION
== END 2020-07-08 13:57 | disposition home or self-care (01) ==
LOC: ED 08:16
DX: R07.89 Other chest pain (principal); I10 Essential (primary) hypertension; E11.9 Type 2 diabetes mellitus without complications; I25.10 Atherosclerotic heart disease of native coronary artery without angina pectoris; J45.909 Unspecified asthma, uncomplicated; Z95.5 Presence of coronary angioplasty implant and graft; Z79.01 Long term (current) use of anticoagulants; Z95.2 Presence of prosthetic heart valve; Z88.8 Allergy status to other drugs, medicaments and biological substances; Z91.013 Allergy to seafood; Z91.030 Bee allergy status; Z91.011 Allergy to milk products; Z79.899 Other long term (current) drug therapy; Z79.82 Long term (current) use of aspirin
CPT/HCPCS: 36415; 71045; 80053; 84484; 85025; 93005; 93010; 99285-25

== ENCOUNTER 2020-08-13 10:28 | Emergency (ER) | payer MEDICARE, OTHER ==
[~2020-08-13] VITALS: Ht 162.6 cm; Wt 75.5 kg
[~2020-08-13 10:28] MED LIST changes: +ASPIRIN81 MG PO; +OYSTER SHELL C1 EA11 PO
[2020-08-13] MEDS ORDERED: ATORVASTATIN CA80 MG PO (10:45)
--- NOTE | 2020-08-13 22:13 | EKG ---
[facility] [address] [facility] [place] [address] Signed Normal sinus rhythm Normal ECG When compared with ECG of 08-JUL-2020 08:20, No significant change was found Confirmed by BRIAN QUINONEZ MD ([id number]) on 08/13/2020 10:13:18 PM Electronically Signed By: BRIAN QUINONEZ MD 08/13/20 2213 PATIENT NAME: JONETERRELL FURLONG Electrocardiogram DATE OF : 47 PHYSICIAN: BRIAN QUINONEZ MD REPORT #: [id number] REPORT IS CONFIDENTIAL AND NOT TO BE RELEASED WITHOUT AUTHORIZATION
== END 2020-08-13 12:21 | disposition home or self-care (01) ==
LOC: ED 10:28
DX: S09.90XA Unspecified injury of head, initial encounter (principal); Z79.01 Long term (current) use of anticoagulants; W01.10XA Fall on same level from slipping, tripping and stumbling with subsequent striking against unspecified object, initial encounter; I10 Essential (primary) hypertension; E11.9 Type 2 diabetes mellitus without complications; J45.909 Unspecified asthma, uncomplicated; G47.30 Sleep apnea, unspecified; Z88.8 Allergy status to other drugs, medicaments and biological substances; Z91.030 Bee allergy status; Z91.013 Allergy to seafood; Z79.899 Other long term (current) drug therapy; Z79.82 Long term (current) use of aspirin
CPT/HCPCS: 70450; 80053; 84484; 85025; 93005; 93010; 99284-25; J7040

== ENCOUNTER 2020-12-01 19:59 | Observation (INO) | payer MEDICARE, OTHER ==
[~2020-12-01] VITALS: Ht 162.6 cm; Wt 76.9 kg
[~2020-12-01 19:59] MED LIST changes: +ADULT ASPIRIN R81 MG PO; -ASPIRIN81 MG PO; +ATORVASTATIN CA80 MG PO; -MULTIVITAMINS1 EAC7 PO; -SIMILASAN EYE; +SIMILASAN EYE OD
--- OUTSIDE RECORDS SUMMARY | 2020-12-01 20:02 | XMS ---
PreManage Notification: TERRELL BECERRIL Security Fire Extinguisher Charger Events No recent Security Events currently on file CRITERIA MET - [facility] CARE PROVIDERS [facility] 07/08/2020-Current PHONE: [phone] Joaquim Martin Hydraulic Billet Maker/Carpet Technician 10/24/2020-Current PHONE: [phone] [facility] has no Care Guidelines for this patient. ENereida VISIT COUNT (12 MO.) 1 Curly Schwartz [facility] TOTAL 7 NOTE: Visits indicate total known visits. ED/UCC VISIT TRACKING (12 MO.) 12/01/2020 20:[address] 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 - Allergy to seafood - MCC (current) use of aspirin - Fall on same level from slipping, tripping and stumbling with subsequent striking against unspecified object, initial encounter - Unspecified injury of head, initial encounter - ocean transportation intermediary (current) use of anticoagulants - Type 2 diabetes mellitus without complications - Unspecified asthma, uncomplicated 07/08/2020 08:16 [facility] [place] TYPE: Emergency COMPLAINT: - CHEST PAINS DIAGNOSES: - MCC (current) use of anticoagulants - Old myocardial infarction - Allergy to seafood - ocean transportation intermediary (current) use of aspirin - Other chest pain - Presence of coronary angioplasty implant and graft - Unspecified asthma, uncomplicated - Bee allergy status - Allergy to milk products - 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 - Essential (primary) hypertension - Type 2 diabetes mellitus without complications - Presence of prosthetic heart valve - Atherosclerotic heart disease of [place] coronary artery without angina pectoris - Allergy status to other drugs, medicaments and biological substances 05/08/2020 11:20 [facility] [place] TYPE: Emergency COMPLAINT: - BLOOD PRESSURE PROBLEM, WEAKNESS DIAGNOSES: - Syncope and collapse - Personal history of transient ischemic attack (TIA), and cerebral infarction without residual deficits - Old myocardial infarction - Urinary tract infection, site not specified - Type 2 diabetes mellitus without complications - Allergy status to other drugs, medicaments and biological substances - Essential (primary) hypertension - Sleep apnea, unspecified - Bee allergy status - Weakness - Other care home (current) drug therapy - Allergy to seafood - Unspecified asthma, uncomplicated 03/29/2020 00:17 [facility] [place] TYPE: Emergency COMPLAINT: - COUGH 02/03/2020 16:22 [facility] [place] TYPE: Emergency COMPLAINT: - CHEST PAIN DIAGNOSES: - Personal history of transient ischemic attack (TIA), and cerebral infarction without residual deficits - Allergy status to other drugs, medicaments and biological substances - Unspecified asthma, uncomplicated - Bee allergy status - Allergy to seafood - Essential (primary) hypertension - Sleep apnea, unspecified - Allergy status to other drugs, medicaments and biological substances - Other care home (current) drug therapy - Other chest pain - Type 2 diabetes mellitus without complications - Chest pain, unspecified INPATIENT VISIT TRACKING (12 MO.) 09/13/2020 07:02 [facility] TYPE: Cardiology DIAGNOSES: - Fibromyalgia - Unspecified abnormal findings in urine - Occlusion and stenosis of bilateral carotid arteries - Hyperlipidemia, unspecified - Atherosclerotic heart disease of [place] coronary artery without angina pectoris - Type 2 diabetes mellitus without complications - Chronic diastolic (congestive) heart failure - Nonrheumatic aortic (valve) insufficiency - Essential (primary) hypertension - Nonrheumatic aortic (valve) stenosis 03/29/2020 04:30 [facility] [place] TYPE: Medical Surgical COMPLAINT: - GI BLEED DIAGNOSES: - Gastro-esophageal reflux disease without esophagitis - Allergy status to other drugs, medicaments and biological substances - Bariatric surgery status - Postprocedural hypothyroidism - MCC (current) use of antithrombotics/antiplatelets - Disorder of arteries and arterioles, unspecified - Type 2 diabetes mellitus with diabetic peripheral angiopathy without gangrene - Type 2 diabetes mellitus with diabetic peripheral angiopathy without gangrene - Other hemorrhoids - Diverticulosis of large intestine without perforation or abscess without bleeding - Atherosclerotic heart disease of [place] coronary artery without angina pectoris - Personal history of transient ischemic attack (TIA), and cerebral infarction without residual deficits - Allergy status to other drugs, medicaments and biological substances - Allergy status to other drugs, medicaments and biological substances - Gastro-esophageal reflux disease without esophagitis - Personal history of transient ischemic attack (TIA), and cerebral infarction without residual deficits - Disorder of arteries and arterioles, unspecified - Unspecified asthma, uncomplicated - Other hemorrhoids - Chronic pain syndrome - Essential (primary) hypertension - 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 - Fibromyalgia - Presence of coronary angioplasty implant and graft - Major depressive disorder, single episode, unspecified - MCC (current) use of anticoagulants - Diverticulosis of large intestine without perforation or abscess without bleeding - Contact with and (suspected) exposure to other viral communicable diseases - Old myocardial infarction - Chronic pain syndrome - Other care home (current) drug therapy - Presence of coronary angioplasty implant and graft - Gastrointestinal hemorrhage, unspecified - Fibromyalgia - Major depressive disorder, single episode, unspecified - Chronic or unspecified gastrojejunal ulcer with hemorrhage - Contact with and (suspected) exposure to other viral communicable diseases - Atherosclerotic heart disease of [place] coronary artery without angina pectoris - Chronic or unspecified gastrojejunal ulcer with hemorrhage - Obstructive sleep apnea (adult) (pediatric) - Obstructive sleep apnea (adult) (pediatric) - MCC (current) use of anticoagulants - Essential (primary) hypertension - Bariatric surgery status - Acute posthemorrhagic anemia - Unspecified asthma, uncomplicated - Old myocardial infarction - Acute posthemorrhagic anemia - Postprocedural hypothyroidism - ocean transportation intermediary (current) use of antithrombotics/antiplatelets [email or web address]
--- NOTE | 2020-12-02 01:12 | NUR ---
TELEPHONE REPORT RECEIVED FROM ED RN ROSEANNE, QUESTIONS ANSWERED. AWAITING pt's ARRIVAL TO FLOOR.
--- NOTE | 2020-12-02 01:55 | NUR ---
pt ARRIVED TO FLOOR FROM ED, TRANSFERED SELF TO BED. VSS, pt ON RA. TELE#[address] pt ORIENTED TO ROOM, CALL LIGHT IN REACH. THUAN WARDROBE COORDINATOR COMPLETING QUICK ADMIT. pt DENIES PAIN AND NAUSEA. HX DM, pt REPORTS HE GETS HER BLOOD SUGAR CHECKED ONCE A WEEK ON TUESDAYS. pt VERBALIZES SHE CAN USUALLY TELL IF IT DROPS, WILL MONITOR. EDUCATED ON S/SX OF HYPOGLYCEMIA. NO FURTHER NEEDS, CALL LIGHT IN REACH.
--- NOTE | 2020-12-02 03:28 | NUR ---
pt RESTING IN BED, DENIES NEEDS OR CONCERNS. pt ATE SUGAR FREE JELLO, DENIES NAUSEA. TELE#[address], SINUS RHYTHM. HR 60'S. NO FURTHER NEEDS, CALL LIGHT IN REACH.
--- NOTE | 2020-12-02 05:30 | NUR ---
CALL LIGHT ANSWERED, pt UP SBA TO VOID AND BACK TO BED. pt PLEASANT, BUT FORGETFUL AT TIMES WHEN CONVERSING WITH STAFF. PRN ACCUCHECK COMPLETE, RESULT OF 70. CUP OF JUICE PROVIDED, WILL MONITOR AND RECHECK BS. NO FURTHER NEEDS. pt RESTING IN BED, CALL LIGHT IN REACH.
--- NOTE | 2020-12-02 05:45 | NUR ---
RECENT BORDERLINE HYPOGLYCEMIC EPISODE OF 70. AT 0545, REPEAT ACCUCHECK RESULT OF [address] MORRISON MADE AWARE. NO NEW ORDERS.
--- NOTE | 2020-12-02 06:50 | NUR ---
Spoke with Le. She lives at [facility]. States she uses a CPAP and a walker. Does not have her glasses or phone with her. I will call and see if someone can deliver. Pt is independent at the facility. Does have help with laundry, but walks and showeres self. Denies any needs to return. Plans on return to [facility] when she is released. No financial issues. Per [address] Brian. Pt may dc tomorrow. I will call and check if pt may return or if they need permision from the state.
--- NOTE | 2020-12-02 07:07 | NUR ---
SBA TO THE BATHROOM AND BACK TO BED. PATIENT VOIDED 300ML AND HAD BOWEL MOVEMENT. CALL LIGHT WITHIN REACH.
--- NOTE | 2020-12-02 07:51 | NUR ---
RECEIVED REPORT FROM DAY SHIFT RN. PATIENT IS RESTING IN BED. SCHEDULED MEDICATIONS GIVEN PER ORDER. PATIENTS BS IS LOW. JUICE AND CRACKERS PROVIDED. PATIENT DENIES BEING DIZZY OR LIGHT HEADED. PATIENT IS AAO X3. PATIENT DENIES ANY NEEDS. IV INFUSING PER ORDER. CALL LIGHT IN REACH.
--- NOTE | 2020-12-02 09:02 | NUR ---
PATIENT UP FROM CHAIR TO BATHROOM THEN TO BED, SBA FWW. PATIENT DID AM CARE AND ORAL CARE AT SINK. I&O'S CHARTED. CALL LIGHT IN REACH. NO FURTHER NEEDS AT THIS TIME. RN IN ROOM TO DO ORTHOSTATIC VITAL SIGNS.
--- NOTE | 2020-12-02 09:26 | NUR ---
BLOOD SUGAR REPEAT AND IS 93. ORTHOSTATIC VITALS COMPLETED. PATIENTS MORNING MEDICATIONS GIVEN PER ORDER. IV INFUSING PER ORDER. PATIENT DENIES ANY PAIN OR NAUSEA. PATIENT DENIES ANY NEEDS. PATIENT IS RESTING IN BED. CALL LIGHT IN REACH.
--- NOTE | 2020-12-02 11:46 | NUR ---
PATIENTS SCHEDULED MEDICATIONS GIVEN PER ORDER. PATIENTS BS TAKEN AND IS WNL. PATIENT DENIES ANY FURTHER NEEDS. CALL LIGHT IN REACH.
--- NOTE | 2020-12-02 12:10 | NUR ---
PATIENT ASSISTED TO THE RESTROOM A SBA W/FWW. PATIENT WAS ABLE TO VOID. PATIENT IS SITTING UP ON EDGE OF BED TO EAT LUNCH. PATIENT WILL CALL WHEN SHE IS READY TO GET BACK TO BED. CALL LIGHT IN REACH.
--- NOTE | 2020-12-02 12:33 | NUR ---
PATIENT ASSISTED BACK TO BED BY TANKER SERVICEMAN. NO NEEDS NOTED. CALL LIGHT IN REACH.
--- NOTE | 2020-12-02 12:36 | NUR ---
Called and spoke with Blanca and she states they have already received permission for pt to return from [facility]. Just let them know when pt is near release.
--- NOTE | 2020-12-02 12:55 | NUR ---
PT sitting up in chair and appeared to be in good spirits, smiling and expressing satisfaction with progress. Stated she "felt much better." We talked of her progress and her living conditions. She is disappointed that they are again eating alone in their rooms and is finding she has little motivation to eat. Prayed prayer of thanks for progress made and for continued healing.
--- NOTE | 2020-12-02 13:36 | NUR ---
PATIENT IN BED RESTING AT THIS TIME. RN IN ROOM. VITALS AND I&O'S CHARTED. CALL LIGHT IN REACH. NO FURTHER NEEDS AT THIS TIME.
--- NOTE | 2020-12-02 14:27 | NUR ---
PATIENTS VITALS TAKEN AND RECORDED WITH PIPE STEM SAWYER. PATIENT DENIES ANY NEEDS. CRACKERS PROVIDED. NO FURTHER NEEDS NOTED. CALL LIGHT IN REACH.
--- NOTE | 2020-12-02 16:55 | NUR ---
PATIENTS MEDICATION GIVEN PER ORDER. PATIENT ASSISTED TO SIT AT THE EDGED OF BED FOR DINNER. IV INFUSING PER ORDER. NO FURTHER NEEDS NOTED. CALL LIGHT IN REACH.
--- NOTE | 2020-12-02 17:59 | NUR ---
PATIENT IN BED RESTING. VITALS AND I&O'S CHARTED. CALL LIGHT IN REACH. NO FURTHER NEEDS AT THIS TIME.
--- NOTE | 2020-12-02 18:16 | NUR ---
VITALS TAKEN AND RECORDED. INTAKE AND OUPUT RECORDED. PATIENT ATE 100% OF HJER DINNER. PATIENT IS RESTING IN BED. PATIENT DENIES ANY NEEDS. PATIENT REMAINS ON RA. CALL LIGHT IN REACH.
--- NOTE | 2020-12-02 19:36 | NUR ---
ORTHOSTATIC VITALS COMPLETED.
--- NOTE | 2020-12-02 19:41 | NUR ---
REPORT RECEIVED FROM DAY SHIFT RN. PT LYING IN BED ALERT AND ORIENTED. SBA TO BR WITH FWW. GAIT STEADY. BACK TO BED, RADHA WELL. DENIES FURTHER NEEDS. WHITE BOARD UPDATED. CALL LIGHT IN REACH.
--- NOTE | 2020-12-02 20:46 | NUR ---
EVENING ASSESSMENT COMPLETE. SCHEDULED MEDS ADMINISTERED PER EMAR WITH APPLE SAUCE PER PT REQUEST. PT DENIES PAIN OR NAUSEA. IVF INFUSING WNL. RT IN ROOM TO CHECK HOME CPAP AND LEFT AT BEDSIDE. TELE #5 SR. HR 60'S. PT DENIES FURTHER QUESTIONS OR CONCERNS. CALL LIGHT IN REACH.
--- NOTE | 2020-12-02 23:15 | NUR ---
PT RESTING IN BED WITH EYES CLOSED. RESPIRATIONS EVEN. IVF INFUSING WNL. CALL LIGHT IN REACH.
--- NOTE | 2020-12-03 01:26 | NUR ---
PT UP TO BR WITH SBA AND FWW TO VOID 400 ML YELLOW URINE. GAIT STEADY. BACK TO BED, RADHA WELL. VS AND I&O COMPLETE. ASSISTED PT WITH HOME CPAP. DENIES FURTHER NEEDS. CALL LIGHT IN REACH.
--- NOTE | 2020-12-03 03:45 | NUR ---
PT RESTING IN BED LYING ON RIGHT SIDE WITH EYES CLOSED. RESPIRATIONS EVEN. CPAP IN PLACE. IVF INFUSING WNL. TELE #5 SR. HR 50'S. CALL LIGHT IN REACH.
--- NOTE | 2020-12-03 05:27 | NUR ---
VS AND I&O COMPLETE AND CHARTED. SBA WITH FWW TO BR TO VOID. PT ABLE TO DO OWN MALINDA CARE AND WASH HANDS. BACK TO BED, RADHA WELL. DENIES PAIN. HOME CPAP IN PLACE. IVF INFUSING WNL. WARM BLANKET PROVIDED. CALL LIGHT IN REACH.
--- NOTE | 2020-12-03 06:54 | NUR ---
SCHEDULED MEDS ADMINISTERED PER EMAR. PT UP TO BR WITH SBA AND FWW TO VOID. GAIT STEADY. BACK TO BED, RADHA WELL. IVF INFUSING WNL. CPOX IN PLACE. NO FURTHER NEEDS. CALL LIGHT IN REACH.
--- NOTE | 2020-12-03 07:57 | NUR ---
RECEIVED REPORT FROM DAY SHIFT RN. PATIENT IS RESTING IN BED. NO NEEDS NOTED. CALL LIGHT IN [facility].
--- NOTE | 2020-12-03 08:14 | NUR ---
PATIENT ASSESMENT COMPLETED. PATIENTD DENIES ANY PAIN OR SOB. VITALS TAKEN AND RECORDED. INTAKE AND OUPUT RECORDED. PATIENT IS RESTING IN RECLINER WATCHING TV. IV INFUSING PER ORDER. MORNING MEDICATIONS GIVEN PER ORDER. PATIENT DENIES ANY NEEDS. CALL LIGHT IN REACH.
[2020-12-03] MEDS ORDERED: DULOXETINE HCL20 MG PO (08:59)
--- NOTE | 2020-12-03 09:00 | NUR ---
Pt will dc today. Ok per Desean for pt to return.
[2020-12-03] MEDS ORDERED: FEOSOL325 MG PO (09:01)
[2020-12-03] MEDS ORDERED: HYDROCHLOROTH12.5 MG PO (09:02)
[2020-12-03] MEDS ORDERED: LEVOTHYROXINE112 MCG PO (09:03)
[2020-12-03] MEDS ORDERED: TRULICITY3 MG/0.5 M SUB-Q (09:07)
[2020-12-03] MEDS ORDERED: VITAMIN D350 MC3 PO (09:15)
--- NOTE | 2020-12-03 09:18 | NUR ---
Patient up to shower up from chair, ARVIN, YULY, patient independent in shower, new gown provided, and linens changed. She brushed her hair independently. Patient is back in her chair with ARVIN EMERY. Call light in reach and patient is eating breakfast. She has no further requests at this time.
[2020-12-03] MEDS ORDERED: HALLS7.5 MG MM (09:27)
[2020-12-03] MEDS ORDERED: LOPERAMIDE2 M1 PO (09:31)
--- NOTE | 2020-12-03 09:41 | NUR ---
MED REC COMPLETE
--- NOTE | 2020-12-03 10:00 | NUR ---
It was my pleasure to visit with Le this morning in regards to her care while here in the hospital. Le states "My care has been outstanding. They have been wonderful." She went on to explain that she had a heart valve replacement in the past in a "much bigger" hospital, and then explains the care here is "always the best." She also remarded that while not always admitted, she has had several trips to our emergency department, and adds "they always take very good care of me there also." In the past Le was seen in the ED, had surgery, and spent 5 days in the ICU, she talked about this experience and the wonderful care that she received in each department, adding "There is not one person that has cared for me that has had a bad attitude. They really take good care of me. I think the biggest smith is the outstanding teamwork I see here." Le also commented on the friendliness of the staff members "who clean my room" adding that "the food is also really good." She said the people that are in my room are always "polite and helpful". Le also confirmed that the staff members were explaining her medications to her, and she understood the care plan. While happy with her care here, she is also anxious to return home to her previous living situation at [facility].
--- NOTE | 2020-12-03 11:54 | NUR ---
PATIENT IS UP TO THE RECLINER TO EAT LUNCH. MEDICATIONS GIVEN PER ORDER. PATIENT DENIES ANY NEEDS. CALL LIGHT IN REACH.
--- NOTE | 2020-12-03 13:06 | NUR ---
PATIENTS IC DC'D. DISCHARGE INSTURCTIONS DISCUSSED WITH PATIENT. PATIENT DENIES ANY QUESTIONS. PATIENT ASSITED WITH GETING DRESSED. PATIENT OFF THE FLOOR. VARINDER JACKSON ASSISTED PATIENT TO CAR. ANNETTE WILL BE TRASPORTING PATIENT BACK TO [facility]. ALL BELONGINGS WITH PATIENT. DISCHARGE INSTRUCTIONS AND PACKET FOR [facility] JORGE ESTATES WITH PATIENT.
--- NOTE | 2020-12-03 18:42 | EKG ---
[facility] [address] [facility] [place], [place] [address] Signed Sinus bradycardia Otherwise normal ECG When compared with ECG of 13-AUG-2020 10:50, No significant change was found Confirmed by TYSON SOTELO DO ([id number]) on 12/03/2020 6:42:14 PM Electronically Signed By: TYSON SOTELO DO 12/03/20 1842 PATIENT NAME: JONETERRELL JEWELL Electrocardiogram DATE OF : 47 PHYSICIAN: TYSON SOTELO DO REPORT #: [id number] REPORT IS CONFIDENTIAL AND NOT TO BE RELEASED WITHOUT AUTHORIZATION
== END 2020-12-03 13:00 | disposition home or self-care (01) ==
LOC: ED 19:59 → MS 20:01
PROVIDERS: ADMIT Internal Medicine; ATTEND Internal Medicine
DX: I95.1 Orthostatic hypotension (principal); A08.4 Viral intestinal infection, unspecified; E86.0 Dehydration; E11.649 Type 2 diabetes mellitus with hypoglycemia without coma; I10 Essential (primary) hypertension; G47.33 Obstructive sleep apnea (adult) (pediatric); E03.9 Hypothyroidism, unspecified; E78.5 Hyperlipidemia, unspecified; M79.7 Fibromyalgia; I25.10 Atherosclerotic heart disease of native coronary artery without angina pectoris; I25.2 Old myocardial infarction; Z88.8 Allergy status to other drugs, medicaments and biological substances; Z91.013 Allergy to seafood; Z91.030 Bee allergy status; Z91.018 Allergy to other foods; Z95.5 Presence of coronary angioplasty implant and graft; Z86.73 Personal history of transient ischemic attack (TIA), and cerebral infarction without residual deficits; Z79.890 Hormone replacement therapy; Z79.899 Other long term (current) drug therapy; Z79.01 Long term (current) use of anticoagulants; Z79.82 Long term (current) use of aspirin; Z20.822 Contact with and (suspected) exposure to COVID-19
CPT/HCPCS: 74177; 80053; 85025; 93005; 93010; 94667; 94668; 96374; 99285-25; C9803; G0378; J2405; J7121; Q9967; U0003

== ENCOUNTER 2021-01-29 08:50 | Day surgery (SDC) | payer MEDICARE, OTHER ==
[~2021-01-29] VITALS: Ht 162.6 cm; Wt 77.7 kg
[~2021-01-29 08:50] MED LIST changes: +FEOSOL325 MG PO; +HALLS7.5 MG MM; +HYDROCHLOROTH12.5 MG PO; +LEVOTHYROXINE112 MCG PO; +LOPERAMIDE2 M1 PO; +TRULICITY3 MG/0.5 M SUB-Q; +VITAMIN D350 MC3 PO
[2021-01-29] MEDS ORDERED: FERROUS SULFAT325 MG PO (09:17)
--- NOTE | 2021-01-29 12:30 | NUR ---
01/29/21 1230 Isadora Tiwari 1118 PT ARRIVED IN PACU NON RESPONSIVE TO NOXIOUS STIMULI WITH OPA IN PLACE. LAYING ON L SIDE. ABD SOFT. 1121 PT REACTIVE. OPA REMOVED. BLOOD SUGAR 64. 1130 SITTING UP IN BED SIPPING ON APPLE JUICE AND TALKING TO STAFF. 1150 BLOOD SUGAR RECHECK 82. GETTING DRESSED IN STAND BY ASSIST. 1205 DC INSTRUCTIONS GIVEN. ALL QUESTIONS ANSWERED. LEFT VIA W/C.
--- NOTE | 2021-01-30 07:56 | OR ---
[facility] [address] [place], [place] [address] Signed DATE OF OPERATION: 01/29/2021 SURGEON: Valeriy Gillespie MD PREOPERATIVE DIAGNOSES: 1. Recent left upper quadrant abdominal pain and acute diarrhea that resolved. 2. Mother with a history of colonic polyps. 3. Unremarkable colonoscopy in [place], [place] in 2000. 4. Colonoscopy with Dr. Gillespie in 2011 with diverticulosis, external hemorrhoids, serrated adenomatous polyps, and adenomatous polyps. 5. Colon[place] [address] Gillespie with diverticulosis. 6. Upper and lower endoscopy [place] [address] Georges Haque with dilation of possible Schatzki's ring, small hiatal hernia, and routine gastric bypass anatomy with 4 mm adenomatous polyp in the cecum and diverticulosis. 7. Repeat upper and lower endoscopy in [address] Gillespie for GI bleed from an ulcer in her gastric pouch with unremarkable diverticulosis and internal hemorrhoids. POSTOPERATIVE DIAGNOSES: 1. Small hiatal hernia. 2. Mild gastritis. 3. Anastomotic clip. 4. Moderate sigmoid diverticulosis. PROCEDURES: 1. EGD with biopsies of the anastomosis/pouch. 2. Colonoscopy with hot biopsy. ESTIMATED BLOOD LOSS: None. INDICATIONS: Terrell is a 75-year-old female, asked to see me for yet another upper and lower endoscopy. She requires Eliquis and aspirin for anticoagulation. She has gone through the above-listed procedures. She had bled following upper and lower endoscopy in 2019 when she resumed her Eliquis and aspirin. Therefore, I had repeated the upper and lower endoscopy in 2019 and found that she had an ulcer, bleeding in her gastric pouch. Because of her more recent abdominal complaints as reviewed in detail in the history of present illness including the left upper quadrant abdominal pain and diarrhea that is now resolved, she was asked to come back and see me for repeat upper and lower endoscopy. I gave Terrell pamphlets in the office on both upper and lower endoscopy. We Electronically Signed By: VALERIY GILLESPIE MD 01/30/21 0756 PATIENT NAME: TERRELL BECERRIL [place] OPERATIVE REPORT DATE OF : 47 REPORT #: [id number] PHYSICIAN: VALERIY GILLESPIE MD PCP: ZUNILDA GRIDER MD REPORT IS CONFIDENTIAL AND NOT TO BE RELEASED WITHOUT AUTHORIZATION [facility] [address] [place], [place] [address] Signed had reviewed the nature of the two tests. There is risk including, but not limited to gas bloating, crampy abdominal pain, bleeding, perforation requiring surgery, and missed diagnosis. Also because of her advanced medical issues and low functional status, we did ask for monitored anesthesia care as we have in the past. She had expressed understanding and wished to proceed. PROCEDURE NOTE: Terrell was taken into our endoscopy suite and placed in a supine semi-recumbent position. She was given monitored anesthesia care with propofol per our nurse programming equipment operator. A bite block was utilized for the case. The adult gastroscope was introduced. As is common with her elderly patient, she has very thick mucoid saliva in the posterior oropharynx and down her esophagus. There was no evidence of Schatzki's ring. Very minimal disruption to the Z-line. She does have a small hiatal hernia and then into the gastric pouch. One could easily see the anastomosis. She still has a clip from last year for the bleeding ulcer. The mucosa had healed up around that very nicely. We pulled on it gently with hot biopsy forceps, but it would not come off. We decided to not remove with the snare. This could be very similar to have an anastomotic staple through the mucosa. It would not be contributing to her left upper quadrant abdominal pain or any diarrhea. She has some scar tissue around that anastomosis from her ulcer. It is all healed at this point. However, there is some inflammatory changes around that anastomosis, so we went ahead and took a couple biopsies for pathologic review. She has already had CLOtest previously, so that was not repeated today. The Emily limb is unremarkable. She did have part of food in her Emily limb despite the fact she has been n.p.o. since midnight. After this, the scope was then slowly withdrawn. We saw no other issues throughout the procedure. Her distal middle and upper esophagus were unremarkable. After this, the gas was suctioned out and the gastroscope removed. Terrell tolerated the upper endoscopy quite well. Terrell was then rotated into the left lateral decubitus position. She was maintained on IV sedation with propofol per our nurse programming equipment operator. A digital rectal exam was performed and really very little in the way of any external hemorrhoids. The adult colonoscope was introduced and advanced under direct visualization of the camera into the cecum itself. She still had some balls of particulate stool matter scattered throughout the colon, but we were able to get past those quite readily. We could see the appendiceal orifice and the ileocecal valve. We had taken pictures throughout for photodocumentation. All the mucosa was quite healthy. No polyps on this occasion. Again, she has moderate sigmoid diverticulosis. The scope was then retroflexed in the rectum and really very minimal in the way of internal hemorrhoid columns. No evidence of any recent or remote bleeding. After this, the gas was suctioned out and the colonoscope removed. Terrell tolerated the lower endoscopy quite well. RECOMMENDATIONS: Electronically Signed By: VALERIY GILLESPIE MD 01/30/21 0756 PATIENT NAME: TERRELL BECERRIL [place] OPERATIVE REPORT DATE OF : 47 REPORT #: [id number] PHYSICIAN: VALERIY GILLESPIE MD PCP: ZUNILDA GRIDER MD REPORT IS CONFIDENTIAL AND NOT TO BE RELEASED WITHOUT AUTHORIZATION [facility] [address] [place] [id number] Signed I will see Terrell back in my office in 7 to 14 days to review her results. She will hold aspirin, Eliquis, and NSAIDs for 1 week. She can resume her other chronic medications today. Valeriy Gillespie MD ALB/PRAVEENL /[id number] cc: Zunilda Grider MD Chart Filed Incomplete Valeriy Gillespie MD Copies: CHART FILED INCOMPLETE VALERIY GILLESPIE MD ~ Electronically Signed By: VALERIY GILLESPIE MD 01/30/21 0756 PATIENT NAME: TERRELL BECERRIL [place] OPERATIVE REPORT DATE OF : 47 REPORT #: [id number] PHYSICIAN: VALERIY GILLESPIE MD PCP: ZUNILDA GRIDER MD REPORT IS CONFIDENTIAL AND NOT TO BE RELEASED WITHOUT AUTHORIZATION
--- NOTE | 2021-02-06 15:18 | PATH ---
[facility] [address] [place], [place] [address] Signed SPECIMEN(S): A GASTRIC POUCH ANASTOMOSIS SPECIMEN SOURCE: A. GASTRIC POUCH ANASTOMOSIS CLINICAL HISTORY: History of polyps, external hemorrhoids, hiatal hernia, peptic ulcer disease. Post-op: Mild gastritis, small hiatal hernia, diverticulosis. MICROSCOPIC DESCRIPTION: Histologic sections of all submitted blocks are examined by light microscopy. These findings, together with the gross examination, support the pathologic diagnosis. FINAL PATHOLOGIC DIAGNOSIS: Gastric pouch anastomosis, biopsy: - Gastric body type mucosa with features suggestive of proton pump inhibitor therapy. - Portions of gastric antrum and a portion of duodenum demonstrate no significant histopathologic changes. COMMENT: The sections through the gastric biopsies show fragments of oxyntic mucosa that are histologically unremarkable, except for the presence of prominent snouting of the parietal cells. These features are most commonly seen in patients on PPIs. There is no evidence of acute or chronic inflammation. Portions of gastric antrum and a portion of duodenum demonstrate no significant histopathologic changes. There is no evidence of H. pylori, intestinal metaplasia, abnormal infiltrates or neoplasia. There are no inflammatory, hyperplastic, fundic gland or adenomatous polyps present. TWK:em:C2NR GROSS DESCRIPTION: The specimen, labeled "JL, gastric path anastomosis," and designated on the requisition "gastric pouch anastomosis," is received in formalin and consists of three foreman soft tissue fragments that measure 0.2 to 0.3 cm in greatest dimension. The specimen is entirely submitted in cassette (A1). AT (under the direct supervision of a pathologist) The Gross Description was prepared using a voice recognition system. The report was reviewed for accuracy; however, sound-alike word errors, addition and/or PATIENT NAME: TERRELL BECERRIL PATHOLOGY DATE OF : 47 REPORT #: [id number] PHYSICIAN: SUSAN BRANDT PCP: COSMO WALLER MD REPORT IS CONFIDENTIAL AND NOT TO BE RELEASED WITHOUT AUTHORIZATION [facility] [address] [facility] [place], [place] [address] Signed deletions may occur. If there is any question about this report, please contact Client Services. PERFORMING LABORATORY: The technical component was performed by [employer], [address] [place] [address] (Stock Crane Operator: Cristina Louise MD; CLIA# [id number]). The professional interpretation was performed by [facility], [facility] [place] [address]. Diagnostician: Yrn Alicia MD Pathologist Electronically Signed 02/06/2021 Copies: ~ PATIENT NAME: TERRELL BECERRIL PATHOLOGY DATE OF : 47 REPORT #: [id number] PHYSICIAN: SUSAN BRANDT PCP: COSMO WALLER MD REPORT IS CONFIDENTIAL AND NOT TO BE RELEASED WITHOUT AUTHORIZATION
== END 2021-01-29 12:05 | disposition home or self-care (01) ==
LOC: DS 08:50 → OPS 08:50 → DS 11:15 → OPS 12:05
PROVIDERS: ATTEND Colon & Rectal Surgery
PROC: 0DB68ZZ Excision of Stomach, Via Natural or Artificial Opening Endoscopic (ICD-10-PCS; principal; 2021-01-29 09:35)
PROC: 0DJD8ZZ Inspection of Lower Intestinal Tract, Via Natural or Artificial Opening Endoscopic (ICD-10-PCS; 2021-01-29 09:35)
DX: K29.70 Gastritis, unspecified, without bleeding (principal); K44.9 Diaphragmatic hernia without obstruction or gangrene; K57.30 Diverticulosis of large intestine without perforation or abscess without bleeding; E11.9 Type 2 diabetes mellitus without complications; M79.7 Fibromyalgia; K21.9 Gastro-esophageal reflux disease without esophagitis; I48.0 Paroxysmal atrial fibrillation; E89.0 Postprocedural hypothyroidism; G47.33 Obstructive sleep apnea (adult) (pediatric); J45.909 Unspecified asthma, uncomplicated; G89.29 Other chronic pain; F32.A Depression, unspecified; F41.0 Panic disorder [episodic paroxysmal anxiety]; I10 Essential (primary) hypertension; E78.00 Pure hypercholesterolemia, unspecified; I25.2 Old myocardial infarction; K76.0 Fatty (change of) liver, not elsewhere classified; I65.29 Occlusion and stenosis of unspecified carotid artery; Z86.73 Personal history of transient ischemic attack (TIA), and cerebral infarction without residual deficits; Z95.5 Presence of coronary angioplasty implant and graft; Z98.84 Bariatric surgery status; Z96.659 Presence of unspecified artificial knee joint; Z88.8 Allergy status to other drugs, medicaments and biological substances; Z91.030 Bee allergy status; Z91.013 Allergy to seafood; Z87.11 Personal history of peptic ulcer disease; Z86.010 Personal history of colon polyps; Z83.71 Family history of colonic polyps; Z79.01 Long term (current) use of anticoagulants; Z79.82 Long term (current) use of aspirin; Z95.2 Presence of prosthetic heart valve; Z87.891 Personal history of nicotine dependence
CPT/HCPCS: 88305; J0690; J2250; J2704; J3010; J7121

== ENCOUNTER 2022-01-08 22:44 | Emergency (ER) | payer MEDICARE, OTHER ==
[~2022-01-08] VITALS: Ht 162.6 cm; Wt 77.8 kg
[~2022-01-08 22:44] MED LIST changes: +FERROUS SULFAT325 MG PO
--- OUTSIDE RECORDS SUMMARY | 2022-01-08 22:48 | XMS ---
PreManage Notification: TERRELL BECERRIL Security [employer] Events No recent Security Events currently on file CRITERIA MET - [facility] - Has Care Guidelines - PDMP CARE PROVIDERS DELLA PLATA [facility] 07/08/2020-Current PHONE: [phone] Joaquim Martin Pharmacy Resident/Fitter Hand 11/24/2021-Current PHONE: [phone] COSMO WALLER [facility] 12/02/2020-Current PHONE: Unknown Macho has no Care Guidelines for this patient. Care History Medical/Surgical 12/02/2020 [facility] - Patient is currently established with [facility]. If patient is seen in the ED during business hours. Please contact CHWs at [facility]. Care Recommendation: If this patient has had 5 or more Emergency Department visits in the last 12 months.\T\nbsp;Patient will require education on the scope and purpose of the ED as an acute care provider not a Primary Care Provider and should not be utilized for chronic conditions.\T\nbsp; These are guidelines and the provider should exercise clinical judgment when providing care. E.D. VISIT COUNT (12 MO.) 1 [facility] TOTAL 1 NOTE: Visits indicate total known visits. ED/UCC VISIT TRACKING (12 MO.) 01/08/2022 22:45 [facility] [place] TYPE: Emergency COMPLAINT: - CP INPATIENT VISIT TRACKING (12 MO.) No inpatient visits to display in this time frame [email or web address]
[2022-01-08] MEDS ORDERED: PANTOPRAZOLE SO40 MG PO (23:31)
[2022-01-08] MEDS ORDERED: CHLORHEXIDINE473 ML MM (23:32)
[2022-01-08] MEDS ORDERED: AMOXICILLIN500 M1 PO (23:34)
[2022-01-08] MEDS ORDERED: GABAPENTIN100 MG PO (23:36)
[2022-01-09] MEDS ORDERED: PROTONIX40 MG PO (01:07)
[2022-01-09] MEDS ORDERED: CARAFATE1 GM PO (01:07)
[2022-01-09] MEDS ORDERED: ULTRAM50 MG PO (01:07)
--- NOTE | 2022-01-10 17:35 | EKG ---
[facility] [address] [facility] [place] [address] Signed Sinus bradycardia Otherwise normal ECG No previous ECGs available Confirmed by TOMY MORRISON MD ([id number]) on 01/10/2022 5:35:46 PM Electronically Signed By: TOMY MORRISON MD 01/10/22 1735 PATIENT NAME: TERRELL BECERRIL [place] Electrocardiogram DATE OF : 47 PHYSICIAN: TOMY MORRISON MD REPORT #: [id number] REPORT IS CONFIDENTIAL AND NOT TO BE RELEASED WITHOUT AUTHORIZATION
== END 2022-01-09 01:37 | disposition home or self-care (01) ==
LOC: ED 22:44
DX: K21.9 Gastro-esophageal reflux disease without esophagitis (principal); I10 Essential (primary) hypertension; E11.9 Type 2 diabetes mellitus without complications; J45.909 Unspecified asthma, uncomplicated; M19.90 Unspecified osteoarthritis, unspecified site; I25.2 Old myocardial infarction; G47.30 Sleep apnea, unspecified; Z88.8 Allergy status to other drugs, medicaments and biological substances; Z91.030 Bee allergy status; Z91.013 Allergy to seafood; Z79.899 Other long term (current) drug therapy; Z79.82 Long term (current) use of aspirin
CPT/HCPCS: 36415; 71045; 80053; 83690; 83735; 84484; 85025; 85610; 87502; 93005; 93010; 96365; 96375; 99285-25; C9113; C9803; J2270; J3475; U0003

== ENCOUNTER 2022-05-28 08:05 | Observation (INO) | payer MEDICARE, OTHER ==
[~2022-05-28] VITALS: Ht 162.6 cm; Wt 73.8 kg
[~2022-05-28 08:05] MED LIST changes: +AMOXICILLIN500 M1 PO; +CARAFATE1 GM PO; +CENTRUM SILVER1 EAC5 PO; +CHLORHEXIDINE473 ML MM; +FERROUS GLUCON324 M1 PO; -FERROUS SULFAT325 MG PO; +LEVOTHYROXINE100 MCG PO; -LEVOTHYROXINE112 MCG PO; +PANTOPRAZOLE SO40 MG PO
--- OUTSIDE RECORDS SUMMARY | 2022-05-28 08:06 | XMS ---
PreManage Notification: TERRELL BECERRIL [employer] Events No recent Security Events currently on file CRITERIA MET - [facility] CARE PROVIDERS DELLA PLATA [facility] 07/08/2020-Current PHONE: [phone] Joaquim Martin Closet Builder/Crushing Machine Operator 03/26/2022-Current PHONE: [phone] COSMO WALLER [facility] 12/02/2020-Current PHONE: Unknown DELLA CORRAL DMD [employer] PHONE: [phone] Mach[facility] has no Care Guidelines for this patient. Care History Medical/Surgical 12/02/2020 [facility] - Patient is currently established with [facility]. If patient is seen in the ED during business hours. Please contact CHWs at [facility]. Care Recommendation: If this patient has had [...] providing care. E.D. VISIT COUNT (12 MO.) 2 [facility] TOTAL 2 NOTE: Visits indicate total known visits. ED/UCC VISIT TRACKING (12 MO.) 05/28/2022 08:05 [facility] [place] TYPE: Emergency COMPLAINT: - CHEST PAIN 01/08/2022 22:45 [facility] [place] TYPE: Emergency COMPLAINT: - CHEST PAIN DIAGNOSES: - Bee allergy status - Allergy to seafood - Contact with and (suspected) exposure to COVID-19 - Unspecified asthma, uncomplicated - Other halfway (current) drug therapy - Gastro-esophageal reflux disease without esophagitis - rat exterminator (current) use of aspirin - Type 2 diabetes mellitus without complications - Epigastric pain - Essential (primary) hypertension - Old myocardial infarction - Sleep apnea, unspecified - Allergy status to other drugs, medicaments and biological substances - Unspecified osteoarthritis, unspecified site INPATIENT VISIT TRACKING (12 MO.) No inpatient visits to display in this time frame [email or web address]
--- NOTE | 2022-05-28 11:09 | NUR ---
PT TO ROOM 110 FROM [facility] - MOVED FROM [facility] TO BED WELL, SPEECH IMPROVED. CALL LIGHT IN REACH,
--- NOTE | 2022-05-28 13:16 | NUR ---
this rn admitted pt to room 110 from er - where er dr noted pt to have a polst from pcp dr brantley with dnr. pt and son confirmed that she would like to change this and void the polst from 2020. Son anderson provided a advance directive and power of deboner copy to chart. Discussed update with Dr. Hurst - and pt is a full code. Notified Liu Esquivel at [facility] that polst that was sent was voided and advance directive mentioned above from Anderson was faxed to [facility] [address] for update of full code. pt and son thankful for the update - copy was also sent to pcp dr. brantley and next appt. 06-16-22 pt and son were aware that they can update a new polst. (dr. hurst asked that pcp review and update then). pt neuro exam wnl, speech wnl and no deficets noted. swallow wnl and pt is equal in strength.
--- NOTE | 2022-05-28 14:28 | NUR ---
PT ALERT, ORIENTED AND LAYING IN BED VISITING WITH HER SON ADRIANNA. PT FEELS GOD HAS BEEN WITH HER, VERY THANKFUL. REQUESTED PRAYER, WILL FOLLOW
--- NOTE | 2022-05-28 15:30 | NUR ---
Spoke with pt and her son Anderson. Pt resides a [facility]. She has had frequent falls in the past and has a cane angeline walker. She does not choose to use them. Per son, she cont. to fall, pt states she does not. Pt is able to walk from her room to the dinning room for meals. Pt is able to appropriately answer questions and denies numbness around her mouth. Pt plans on return to [facility] when cleared medically. Son states there is an issue as he has a Directive pt completed, he states there is a signed POLST showing DNR. He states pt does not want to be a DNR. I asked the pt and she confirms she wants to be a full code and if she cannot speak for herself her son will decide.
--- NOTE | 2022-05-28 16:06 | NUR ---
IN PT ROOM TO CHECK IN, NEURO WNL - PT TALKING WELL, SON IN ROOM DENIES NEEDS FOR BOTH - TURNED HEAT UP, CALL LIGHT IN REACH. DISCUSSED PLAN FOR BS CHECK BEFORE MEAL.
[2022-05-28] MEDS ORDERED: TUMS200 MG PO (16:15)
--- NOTE | 2022-05-28 16:17 | NUR ---
MED REC COMPLETE
--- NOTE | 2022-05-28 16:35 | NUR ---
Viewed POLST in EMR, shows DNR with full treatment. Called son and he would like this POLST deleted. He states this is a POLST on file at [facility]. Let him know he needs to have [facility] shred their POLST. I will call Medical records and ask them to delete from the EMR. He again states he has an advance directive with his moms wishes. Let him know the POLST is from 2020 and signed by his mother and Dr Grider. I understand from the pt she no longer wishes to be a DNR. Attempted to call Kellie in Medical Records. They have closed. Message left asking for a return call and to delete the POLST form on file in the EMR. Dr. Hernandez notified.
--- NOTE | 2022-05-28 17:17 | NUR ---
pt amb to bathroom, void 300 ml urine - up to chair for meal. bs wnl.
--- NOTE | 2022-05-28 19:15 | NUR ---
REPORT RECEIVED FROM BARNEY Jeter RN. PT SITTING UP IN BED AND RESPONDS WHEN ADDRESSED. PT REPORTS NO NEEDS AT THIS TIME. CALL LIGHT IN REACH.
--- NOTE | 2022-05-28 20:50 | EKG ---
[facility] [address] [place] [address] Signed Normal sinus rhythm Nonspecific ST and T wave abnormality Abnormal ECG When compared with ECG of 08-JAN-2022 22:42, No significant change was found Confirmed by Gualberto Bueno MD () on 05/28/2022 8:49:54 PM Electronically Signed By: GUALBERTO BUENO MD 05/28/222049 PATIENT NAME: JONETERRELL [place] Electrocardiogram DATE OF : 47 PHYSICIAN: GUALBERTO BUENO MD REPORT #: [id number] REPORT IS CONFIDENTIAL AND NOT TO BE RELEASED WITHOUT AUTHORIZATION
--- NOTE | 2022-05-28 21:31 | NUR ---
IN TO ADMINISTER MEDICATIONS, SEE MAR. PT TAKES PO MEDICATIONS WITH APPLE SAUCE WITH NO ISSUES. PT REQUESTING TO USE RESTROOM. SBA WITH FWW FROM BED TO RESTROOM AND BACK. PT HAS SLOW STEADY GAIT. VITALS AND I&Os COMPLETE. ASSESSMENT COMPLETE. LUNG SOUNDS CLEAR. BOWEL TONES ACTIVE. PT REPORTS NO PAIN AT THIS TIME. PT A&O TO SELF, PLACE, DATE. SENSATION INTACT. PT ABLE TO TELL THIS RN WHICH EXTREMITY IS TOUCHED WHILE PTs EYES ARE CLOSED. PT DENIES NUMBNESS OR TINGLING AT THIS TIME. SMALL BRUISE NOTED TO LEFT HIP. PT REPORTS NO OTHER NEEDS AT THIS TIME. CALL LIGHT IN REACH. BED ALARM ON. CPAP ON.
--- NOTE | 2022-05-28 21:44 | NUR ---
SPOKE TO TELEPHARMACY REGARDING LISTED ALLERGY TO INSULIN LISPRO (CAUSES THROAT SWELLING PER H&P REPORT ON LISTED ALLERGIES). PER ROULA, THERE IS RISK OF CROSS REACTION. ORDERING DOCTOR AND PHARMACY BOTH ACHKNOWLEDGED ORDER/WARNING. THIS RN CALLED DR BUENO AND ASKED ON CLARIFICATION. pt's CURRENT BLOOD SUGAR IS 146, REQUIRES INSULIN IF >140 PER SLIDING SCALE AND ONLY REQUIRES 1 UNIT PER EMAR. PER DR BUENO, OKAY TO HOLD EVENING DOSE FOR NOW. MD TO DISCUSS FURTHER WITH PHARMACY. HX DEMENTIA PER PRIMARY RN, UNABLE TO ASK pt FOR CLARIFICATION. PER CHARGE REPORT, MESSAGE SENT TO DR BUENO ON DAYSHIFT REGARDING URINE WBC'S IN UA. pt RECEIVED DOSE OF MACROBID IN ER. NO NEW ORDERS RECEIVED PERTAINING TO URINE WBC'S/ABX AT THIS TIME, MD TO EVALUATE IN THE MORNING. PRIMARY RN VANESA MADE AWARE AND UPDATED.
--- NOTE | 2022-05-28 22:55 | NUR ---
PT RESTING IN BED WITH EYES OPEN. PT REPORTS NO NEEDS AT THIS TIME. CPAP IN PLACE. CALL LIGHT IN REACH. BED ALARM ON.
--- NOTE | 2022-05-28 23:59 | NUR ---
IN TO ROUND ON PT. PT LAYING ON RIGHT SIDE WITH EYES OPEN UPON ENTERING ROOM. PT REQUESTING TO USE RESTROOM. SBA WITH FWW FROM BED TO RESTROOM. PT HAS SLOW STEADY GAIT. PT REPORTING PAIN 8/10 IN TOES ON BILATERAL FEET. PT ALSO REPORTING HEADACHE AT THIS TIME. PRN TYLENOL ADMINISTERED WITH APPLE SAUCE. PT TAKES PO MEDICATION WITH NO ISSUES. WATER PROVIDED. CPAP IN PLACE. PT REPORTS NO OTHER NEEDS AT THIS TIME. CALL LIGHT IN REACH. BED ALARM ON.
--- NOTE | 2022-05-29 01:12 | NUR ---
IN TO ROUND ON PT. VITALS AND I&Os COMPLETE. PT A&O TO ALL. PT REPORTS A SLIGHT HEADACHE. WATER PROVIDED. CPAP ON. PT REPORTS NO OTHER NEEDS AT THIS TIME. CALL LIGHT IN REACH. BED ALARM ON.
--- NOTE | 2022-05-29 05:00 | NUR ---
IN TO ROUND ON PT. PT LAYING IN BED WITH EYES OPEN. PT RESPONDS WHEN ADDRESSED. PT STATES "MY STOMACH IS UPSET." PT REQUESTING TO USE RESTROOM. SBA WITH FWW FROM BED TO RESTROOM AND BACK TO BED. PT HAS SLOW STEADY GAIT. PT SITTING ON EDGE OF BED AND STATE "I THOUGHT I WAS GOING TO THROW UP FOR A SECOND." EMESIS BAG PROVIDED. PRN ZOFRAN ADMINISTERED. PT RESTING IN BED ON LEFT SIDE AND HOB ELEVATED. ASSESSMENT COMPLETE. LUNG SOUNDS CLEAR. BOWEL TONES ACTIVE. PT REPORTING PAIN 7/10 IN NECK. HOT PACK PROVIDED. VITALS AND I&Os COMPLETE. IV DRESSING CHANGED, C/D/I. PT RESTING IN BED. RR EVEN AND UNLABORED. PT REPORTS NO OTHER NEEDS AT THIS TIME. CALL LIGHT IN REACH. BED ALARM ON.
--- NOTE | 2022-05-29 06:02 | NUR ---
IN TO ADMINISTER MEDICATIONS, SEE MAR. PT TAKES PO MEDICATIONS WITH APPLE SAUCE WITH NO ISSUES. PT REPORTING PAIN IN NECK IS "BETTER" AFTER THE HOT PACK RATING IT A 5/10. PT DENIES NAUSEA AT THIS TIME. PT DENIES ANY OTHER NEEDS AT THIS TIME. CALL LIGHT IN REACH. BED ALARM ON. SOO BAUTISTA IN TO ASSIST WITH BOOST.
--- NOTE | 2022-05-29 07:17 | NUR ---
REPORT RECEIVED FROM VANESA VANN, ALL QUESTIONS ANSWERED. PT RESTING QUIETLY IN BED WITH EYES CLOSED, RESPIRATIONS EVEN AND UNLABORED. CALL LIGHT IN REACH.
--- NOTE | 2022-05-29 07:25 | NUR ---
SPOKE TO KYLIE IN PHARMACY REGARDING LISTED ALLERGY OF INSULIN LISPRO. PER KYLIE, OKAY TO CONTINUE WITH REGULAR INSULIN ORDER. ALSO SPOKE TO BARNEY Jeter WHO WAS THE pt's PRIMARY RN YESTERDAY AND REPORTED THAT THE pt's SON DID NOT THINK pt WAS ALLERGIC TO INSULIN LISPRO.
--- NOTE | 2022-05-29 08:40 | NUR ---
Called and spoke with Helga at [facility]. Asked if pt may return. She states they will need documentation from PT, showing pt is able to walk. I will let Dr. Hernandez know. contacted Dr Hernandez and he will order PT eval.
--- NOTE | 2022-05-29 08:43 | NUR ---
RN IN ROOM TO ANSWER CALL LIGHT - PT ASSISTED UP TO BATHROOM TO VOID USING FWW AND STANDBY ASSIST. PT BACK TO CHAIR WITH WARM BLANKETS PROVIDED. STATES NAUSEA IS RESOLVED. CALL LIGHT IN REACH.
--- NOTE | 2022-05-29 09:30 | NUR ---
Spoke with PT and asked if eval can be completed this am for Desean.
--- NOTE | 2022-05-29 10:03 | NUR ---
MORNING ASSESSMENT COMPLETE. PT ASSISTED TO RESTROOM AND BACK TO CHAIR, STANDBY ASSIST WITH FWW. NO NEUROLOGICAL DEFICITS NOTED. VISITOR AT BEDSIDE. PT DENIES NEEDS AT THIS TIME. CALL LIGHT IN REACH.
--- NOTE | 2022-05-29 10:33 | NUR ---
PT UP WALKING WITH PHYSICAL THERAPY.
--- NOTE | 2022-05-29 10:35 | NUR ---
Patient was seen by physical therapy due to request of sample case porter to ensure patient is safe walking before going back to [facility]. Patient demonstrated independence sit-stands and Modified independent using FWW with supervision. She was able to walk short distance with FWW but due to previous stroke will benefit from FWW to avoid falls. She is safe to go back to [facility] once cleared by , sample case porter was informed.
--- NOTE | 2022-05-29 11:00 | NUR ---
PT eval completed. Dr. Hernandez notified. Spoke with pts son and let him know when orders completed pt may dc. He asks if this will take long, let him know it shouldn't be too long. Dr. Hernandez will be in shortly.
--- NOTE | 2022-05-29 12:00 | NUR ---
Received dc orders and PT note printed. Called Helga at [facility] and let her know I am faxing orders. She states she has a meeting and will not be able to review PT note and orders until after her meeting. This will be sometime after 1 pm. UPdated son, nurses, and Dr. Nikolay plans to return to work. I appologized as I did not believe this would take this amount of time.
--- NOTE | 2022-05-29 12:31 | NUR ---
PT VISITING WITH SON ADRIANNA AND EATING LUNCH. GAVE BLESSING WILL FOLLOW
--- NOTE | 2022-05-29 13:48 | NUR ---
call placed to son Anderson, per his request, to inform him facility is ready to receive pt.
--- NOTE | 2022-05-29 14:00 | NUR ---
Notified by Helga she has reviewed documentation and pt may return. Nurses notified pt may discharge back to [facility].
== END 2022-05-29 14:25 ==
LOC: ED 08:05 → MS 08:06
PROVIDERS: ADMIT Internal Medicine; ATTEND Internal Medicine
DX: G45.9 Transient cerebral ischemic attack, unspecified (principal); I25.10 Atherosclerotic heart disease of native coronary artery without angina pectoris; I10 Essential (primary) hypertension; G47.33 Obstructive sleep apnea (adult) (pediatric); E11.65 Type 2 diabetes mellitus with hyperglycemia; E78.5 Hyperlipidemia, unspecified; E03.9 Hypothyroidism, unspecified; F32.A Depression, unspecified; K21.9 Gastro-esophageal reflux disease without esophagitis; Z88.8 Allergy status to other drugs, medicaments and biological substances; Z91.030 Bee allergy status; Z91.013 Allergy to seafood; Z79.84 Long term (current) use of oral hypoglycemic drugs; Z79.82 Long term (current) use of aspirin; Z79.899 Other long term (current) drug therapy; Z20.822 Contact with and (suspected) exposure to COVID-19
CPT/HCPCS: 36415; 70450; 70496; 70498; 71045; 80053; 81001; 84484; 85025; 85610; 85730; 93005; 93010; 93880; A9270; C9803; J2405; Q9967; U0003

== ENCOUNTER 2022-06-10 15:30 | Emergency (ER) | payer OTHER, MEDICARE ==
[~2022-06-10] VITALS: Ht 162.6 cm; Wt 73.7 kg
[~2022-06-10 15:30] MED LIST changes: +TUMS200 MG PO
--- OUTSIDE RECORDS SUMMARY | 2022-06-10 15:53 | XMS ---
PreManage Notification: TERRELL BECERRIL Security Asl Interpreter Events No recent Security Events currently on file CRITERIA MET - [facility] - 2 Visits in 30 Days CARE PROVIDERS -[place]- Dentist: Pasteurizer Helper [facility] PHONE: [phone] SHERLYN [facility] 07/08/2020-Current PHONE: [phone] Joaquim Martin Hiv Counselor/Coatings Inspector 03/26/2022-Current PHONE: [phone] COSMO WALLER [facility] 12/02/2020-Current PHONE: Unknown DELLA CORRAL DMD BONG PHONE: [phone] Macho has no Care Guidelines for this patient. Care History Medical/Surgical 12/02/2020 [facility] - Patient is currently established with [facility]. If patient is seen in the ED during business hours. Please contact CHWs at [facility]. Care Recommendation: If this patient has [...] providing care. E.D. VISIT COUNT (12 MO.) 3 [facility]. TOTAL 3 NOTE: Visits indicate total known visits. ED/UCC VISIT TRACKING (12 MO.) 06/10/2022 15:30 [facility] [place] TYPE: Emergency COMPLAINT: - FALL 05/28/2022 08:05 [facility] [place] TYPE: Emergency COMPLAINT: - CHEST PAIN 01/08/2022 22:45 [facility] [place] TYPE: Emergency COMPLAINT: - CHEST PAIN DIAGNOSES: - Unspecified osteoarthritis, unspecified site - Bee allergy status - Allergy to seafood - Contact with and (suspected) exposure to COVID-19 - Unspecified asthma, uncomplicated - Other retirement (current) drug therapy - Gastro-esophageal reflux disease without esophagitis - custodial (current) use of aspirin - Type 2 diabetes mellitus without complications - Epigastric pain - Essential (primary) hypertension - Old myocardial infarction - Sleep apnea, unspecified - Allergy status to other drugs, medicaments and biological substances INPATIENT VISIT TRACKING (12 MO.) 05/28/2022 08:06 [facility] [place] TYPE: Observation COMPLAINT: - TIA DIAGNOSES: - Transient cerebral ischemic attack, unspecified - Gastro-esophageal reflux disease without esophagitis - Allergy status to other drugs, medicaments and biological substances - Essential (primary) hypertension - Hyperlipidemia, unspecified - Hypothyroidism, unspecified - Other retirement (current) drug therapy - Depression, unspecified - long term (current) use of aspirin - Obstructive sleep apnea (adult) (pediatric) - Atherosclerotic heart disease of [place] coronary artery without angina pectoris - Contact with and (suspected) exposure to COVID-19 - custodial (current) use of oral hypoglycemic drugs - Allergy to seafood - Type 2 diabetes mellitus with hyperglycemia - Slurred speech - Bee allergy status [email or web address]
== END 2022-06-10 17:44 | disposition home or self-care (01) ==
LOC: ED 15:30
DX: S09.90XA Unspecified injury of head, initial encounter (principal); W18.39XA Other fall on same level, initial encounter; Z79.01 Long term (current) use of anticoagulants; I10 Essential (primary) hypertension; E11.9 Type 2 diabetes mellitus without complications; J45.909 Unspecified asthma, uncomplicated; I25.2 Old myocardial infarction; Z79.899 Other long term (current) drug therapy; Z88.8 Allergy status to other drugs, medicaments and biological substances; Z91.038 Other insect allergy status; Z91.013 Allergy to seafood; Z91.018 Allergy to other foods
CPT/HCPCS: 36415; 70450; 72125; 80053; 85025; A9270; G0480

== ENCOUNTER 2022-08-29 18:29 | Emergency (ER) | payer MEDICARE, OTHER ==
[~2022-08-29] VITALS: Ht 162.6 cm; Wt 73.5 kg
--- OUTSIDE RECORDS SUMMARY | 2022-08-29 18:31 | XMS ---
PreManage Notification: TERRELL BECERRIL Security Health Care Recruiter Events No recent Security Events currently on file CRITERIA MET - [place] CARE PROVIDERS -, [place]- Dentist: Bonding Machine Tender [facility] PHONE: [phone] DELLA PLATA [facility] 07/08/2020-Current PHONE: [phone] Joaquim Martin Trimming Department Blocker/Oncology Radiation Physician 03/26/2022-Current PHONE: [phone] COSMO WALLER [facility] 12/02/2020-Current PHONE: Unknown DELLA CORRAL DMD BONG PHONE: [phone] Macho has no Care Guidelines for this patient. Care History Medical/Surgical 12/02/2020 [facility] - Patient is currently established with [facility]. If patient is seen in the ED during business hours. Please contact CHWs at [facility]. Care Recommendation: If this patient has had [...] providing care. E.D. VISIT COUNT ([address] [facility]. TOTAL 4 NOTE: Visits indicate total known visits. ED/UCC VISIT TRACKING (12 MO.) 08/29/2022 18:29 [facility] TYPE: Emergency COMPLAINT: - CHEST PAIN 06/10/2022 15:30 [facility] TYPE: Emergency COMPLAINT: - FALL DIAGNOSES: - Allergy status to other drugs, medicaments and biological substances - Allergy to other foods - Allergy to seafood - Essential (primary) hypertension - vermin exterminator (current) use of anticoagulants - Old myocardial infarction - Other fall on same level, initial encounter - Other insect allergy status - Other nursing home (current) drug therapy - Type 2 diabetes mellitus without complications - Unspecified asthma, uncomplicated - Unspecified injury of head, initial encounter 05/28/2022 08:05 [facility] [place] TYPE: Emergency COMPLAINT: - CHEST PAIN 01/08/2022 22:45 [facility] [place] TYPE: Emergency COMPLAINT: - CHEST PAIN DIAGNOSES: - Allergy status to other drugs, medicaments and biological substances - Allergy to seafood - Bee allergy status - Contact with and (suspected) exposure to COVID-19 - Epigastric pain - Essential (primary) hypertension - Gastro-esophageal reflux disease without esophagitis - nursing home (current) use of aspirin - Old myocardial infarction - Other nursing home (current) drug therapy - Sleep apnea, unspecified - Type 2 diabetes mellitus without complications - Unspecified asthma, uncomplicated - Unspecified osteoarthritis, unspecified site INPATIENT VISIT TRACKING (12 MO.) 05/28/2022 08:06 [facility] TYPE: Observation COMPLAINT: - TIA DIAGNOSES: - Allergy status to other drugs, medicaments and biological substances - Allergy to seafood - Atherosclerotic heart disease of [place] coronary artery without angina pectoris - Bee allergy status - Contact with and (suspected) exposure to COVID-19 - Depression, unspecified - Essential (primary) hypertension - Gastro-esophageal reflux disease without esophagitis - Hyperlipidemia, unspecified - Hypothyroidism, unspecified - vermin exterminator (current) use of aspirin - nursing home (current) use of oral hypoglycemic drugs - Obstructive sleep apnea (adult) (pediatric) - Other termite treater helper (current) drug therapy - Slurred speech - Transient cerebral ischemic attack, unspecified - Type 2 diabetes mellitus with hyperglycemia [email or web address]
[2022-08-29 21:32] VITALS: BP 195/74
--- NOTE | 2022-08-29 22:18 | EKG ---
[facility] [address] [place] [address] Signed Normal sinus rhythm Septal infarct , age undetermined Abnormal ECG When compared with ECG of 28-MAY-2022 09:01, No significant change was found Reconfirmed by Gualberto Bueno MD () on 08/29/2022 10:18:07 PM Electronically Signed By: GUALBERTO BUENO MD 08/29/222216 Electronically Signed By: GUALBERTO BUENO MD 08/29/222217 PATIENT NAME: TERRELL BECERRIL [place] Electrocardiogram DATE OF : 47 PHYSICIAN: GUALBERTO BUENO MD REPORT #: [id number] REPORT IS CONFIDENTIAL AND NOT TO BE RELEASED WITHOUT AUTHORIZATION
== END 2022-08-29 21:33 | disposition home or self-care (01) ==
LOC: ED 18:29
DX: R07.89 Other chest pain (principal); I10 Essential (primary) hypertension; E11.9 Type 2 diabetes mellitus without complications; G47.30 Sleep apnea, unspecified; J45.909 Unspecified asthma, uncomplicated; Z95.828 Presence of other vascular implants and grafts; Z88.8 Allergy status to other drugs, medicaments and biological substances; Z91.030 Bee allergy status; Z91.013 Allergy to seafood; Z91.018 Allergy to other foods; Z79.899 Other long term (current) drug therapy; Z79.01 Long term (current) use of anticoagulants; Z79.82 Long term (current) use of aspirin
CPT/HCPCS: 36415; 71045; 80053; 83735; 84484; 85025; 85610; 87502; 93005; 93010; 99285-25; U0003

== ENCOUNTER 2023-05-02 04:21 | Emergency (ER) | payer MEDICARE, OTHER ==
[~2023-05-02] VITALS: Ht 162.6 cm; Wt 73.5 kg
[2023-05-02 04:38] LABS: BASOPHILS 0.7 % (0-2); EOSINOPHILS 4.2 % (0-6); HEMATOCRIT 35.6 % (35.0-50.0); HEMOGLOBIN 11.9 g/dL (12.0-18.0); LYMPHOCYTES 34.4 % (24-44); MCH 30.9 (27-36); MCHC 33.4 g/dl (30-36); MCV 92.4 fl (81-99); MONOCYTES 10.7 % (0-12); PLATELET COUNT 198 K/uL (140-440); RBC 3.85 M/ul (4.3-5.7)
[2023-05-02 04:43] LABS: INR 1.2 (0.80-1.30); PROTIME 14.5 Sec (11.2-14.2)
[2023-05-02 04:56] LABS: ALBUMIN 2.6 g/dL (3.4-5.0); ALBUMIN/GLOBULIN RATIO 0.7 (1.1-2.4); BILIRUBIN, TOTAL 0.4 ng/dL (0.2-1.0); BUN/CREATININE RATIO 17.28 (6.0-28.6); CREATININE, SERUM 0.81 mg/dL (0.55-1.02); MAGNESIUM 1.9 mg/dL (1.8-2.4); PROTEIN, TOTAL 6.3 g/dL (6.4-8.2)
[2023-05-02 04:58] LABS: CALCIUM 6.3 mg/dL (8.5-10.1)
[2023-05-02] MEDS ORDERED: CALCIUM 500+D1 EAC2 PO (06:56)
[2023-05-02 07:13] VITALS: BP 159/75
--- NOTE | 2023-05-02 15:25 | EKG ---
[facility] [address] [place] [address] Signed Sinus rhythm with 1st degree AV block Otherwise normal ECG When compared with ECG of 29-AUG-2022 18:30, Criteria for Septal infarct are no longer present Confirmed by ANTIONETTE SAUCEDO MD ([id number]) on 05/02/2023 3:25:08 PM Electronically Signed By: ANTIONETTE SAUCEDO 05/02/23 1525 PATIENT NAME: JONETERRELL [place] Electrocardiogram DATE OF : 47 PHYSICIAN: ANTIONETTE SAUCEDO REPORT #: [id number] REPORT IS CONFIDENTIAL AND NOT TO BE RELEASED WITHOUT AUTHORIZATION
== END 2023-05-02 07:09 | disposition home or self-care (01) ==
LOC: ED 04:21
PROVIDERS: Family Medicine
DX: R07.89 Other chest pain (principal); I48.91 Unspecified atrial fibrillation; I10 Essential (primary) hypertension; E11.9 Type 2 diabetes mellitus without complications; Z86.73 Personal history of transient ischemic attack (TIA), and cerebral infarction without residual deficits; Z95.5 Presence of coronary angioplasty implant and graft; Z88.8 Allergy status to other drugs, medicaments and biological substances; Z91.030 Bee allergy status; Z91.013 Allergy to seafood; Z79.899 Other long term (current) drug therapy; Z79.82 Long term (current) use of aspirin; Z79.01 Long term (current) use of anticoagulants
CPT/HCPCS: 36415; 71045; 80053; 83735; 83880; 84484; 85025; 85610; 93005; 93010; 96365; 96375; 99285-25; J2270; J2405

== ENCOUNTER 2023-08-19 17:04 | Emergency (ER) | payer MEDICARE, OTHER ==
[~2023-08-19] VITALS: Ht 162.6 cm; Wt 84.4 kg
[~2023-08-19 17:04] MED LIST changes: +CALCIUM 500+D1 EAC2 PO
[2023-08-19 17:43] LABS: BASOPHILS 0.7 % (0-2); EOSINOPHILS 3.6 % (0-6); HEMATOCRIT 37.8 % (35.0-50.0); HEMOGLOBIN 12.2 g/dL (12.0-18.0); LYMPHOCYTES 25.1 % (24-44); MCH 30.3 (27-36); MCHC 32.3 g/dl (30-36); MCV 93.9 fl (81-99); MONOCYTES 10.1 % (0-12); NEUTROPHILS 60.5 % (39-80); PLATELET COUNT 196 K/uL (140-440); RBC 4.02 M/ul (4.3-5.7); RDW 14.7 (10.5-15.0)
[2023-08-19 17:57] LABS: ALBUMIN 2.8 g/dL (3.4-5.0); ALBUMIN/GLOBULIN RATIO 0.76 (1.1-2.4); ANION GAP 11.4 (7-21); BILIRUBIN, TOTAL 0.4 ng/dL (0.2-1.0); BUN/CREATININE RATIO 17.72 (6.0-28.6); CALCIUM 7.9 mg/dL (8.5-10.1); CREATININE, SERUM 0.79 mg/dL (0.55-1.02); POTASSIUM 4.4 mmol/L (3.5-5.1); PROTEIN, TOTAL 6.5 g/dL (6.4-8.2)
[2023-08-19] MEDS ORDERED: DICYCLOMINE HCL20 MG PO (19:11)
[2023-08-19 19:28] VITALS: BP 173/70
== END 2023-08-19 19:21 | disposition home or self-care (01) ==
LOC: ED 17:04
PROVIDERS: Emergency Medicine
DX: R10.9 Unspecified abdominal pain (principal); R19.7 Diarrhea, unspecified; I10 Essential (primary) hypertension; E11.9 Type 2 diabetes mellitus without complications; J45.909 Unspecified asthma, uncomplicated; M19.90 Unspecified osteoarthritis, unspecified site; I25.2 Old myocardial infarction; G47.30 Sleep apnea, unspecified; Z88.8 Allergy status to other drugs, medicaments and biological substances; Z91.013 Allergy to seafood; Z91.030 Bee allergy status; Z79.899 Other long term (current) drug therapy; Z79.82 Long term (current) use of aspirin
CPT/HCPCS: 36415; 80053; 83605; 83690; 85025; 99284

== ENCOUNTER 2023-08-30 20:34 | Emergency (ER) | payer MEDICARE, OTHER ==
[~2023-08-30] VITALS: Ht 162.6 cm; Wt 81.7 kg
[~2023-08-30 20:34] MED LIST changes: +DICYCLOMINE HCL20 MG PO
[2023-08-30 20:46] LABS: BASOPHILS 0.7 % (0-2); EOSINOPHILS 3.6 % (0-6); HEMATOCRIT 36.3 % (35.0-50.0); HEMOGLOBIN 11.9 g/dL (12.0-18.0); LYMPHOCYTES 27.5 % (24-44); MCH 30.5 (27-36); MCHC 32.9 g/dl (30-36); MCV 92.9 fl (81-99); MONOCYTES 8.8 % (0-12); NEUTROPHILS 59.4 % (39-80); PLATELET COUNT 174 K/uL (140-440); RDW 14.6 (10.5-15.0)
[2023-08-30 20:57] LABS: INR 1.41 (0.80-1.30); PROTIME 16.8 Sec (11.2-14.2)
[2023-08-30 21:03] LABS: ALBUMIN 2.6 g/dL (3.4-5.0); ALBUMIN/GLOBULIN RATIO 0.79 (1.1-2.4); ALCOHOL, MEDICAL <3 ng/dL (<3); ALKALINE PHOSPHATASE 76 U/L (46-116); ALT (SGPT) 32 U/L (14-59); ANION GAP 8.7 (7-21); AST (SGOT) 47 U/L (15-37); BILIRUBIN, TOTAL 0.5 ng/dL (0.2-1.0); BUN/CREATININE RATIO 15.38 (6.0-28.6); CALCIUM 7.2 mg/dL (8.5-10.1); CARBON DIOXIDE 32 mmol/L (21-32); CHLORIDE 106 mmol/L (98-107); CREATININE, SERUM 0.91 mg/dL (0.55-1.02); GLOMERULAR FILTRATION RATE,EST 65 mL/min (>60); POTASSIUM 3.7 mmol/L (3.5-5.1); PROTEIN, TOTAL 5.9 g/dL (6.4-8.2); UREA NITROGEN 14 mg/dL (7-18)
[2023-08-30 21:21] LABS: ABO A; ANTIBODY SCREEN NEGATIVE; RH POSITIVE
[2023-08-30] MEDS ORDERED: SODIUM CHLORIDE 0.9% 500 ML IV PRN (21:30)
[2023-08-30 21:42] LABS: BILIRUBIN, URINE NEGATIVE (negative); BLOOD/HGB, URINE NEGATIVE (Negative); KETONE, URINE NEGATIVE (Negative); LEUK ESTERASE, URINE TRACE (negative); NITRITE, URINE NEGATIVE (negative)
[2023-08-30 21:49] LABS: EPITHELIAL CELLS, URINE SQUAMOUS 1+ /lpf (0-1+)
[2023-08-30 21:50] LABS: BACTERIA, URINE 4+ /hpf (negative); CASTS, URINE NONE SEEN \\lpf; CRYSTALS, URINE NONE SEEN (0-1+); RED BLOOD CELLS, URINE 0-1 /hpf (0-5); REFLEX CULTURE, URINE Yes (No); WHITE BLOOD CELLS, URINE 41-50 /HPF (0-5)
[2023-08-30 21:56] LABS: AMPHETAMINES, URINE NEGATIVE (NEGATIVE); BARBITURATES, URINE NEGATIVE (NEGATIVE); BENZODIAZEPINE, URINE NEGATIVE (NEGATIVE); BUPRENORPHINE, URINE NEGATIVE (NEGATIVE); CANNABINOID, URINE NEGATIVE (NEGATIVE); COCAINE, URINE NEGATIVE (NEGATIVE); ECSTASY, URINE NEGATIVE (NEGATIVE); FENTANYL, URINE NEGATIVE (NEGATIVE); METHADONE, URINE NEGATIVE (NEGATIVE); OPIATES, URINE NEGATIVE (NEGATIVE); OXYCODONE, URINE NEGATIVE (NEGATIVE); PHENCYCLIDINE, URINE NEGATIVE (NEGATIVE)
[2023-08-30] MEDS ORDERED: CEFDINIR300 MG PO (22:13)
[2023-08-30] MEDS ORDERED: CEFTRIAXONE/SODIUM CHLORIDE 2 GM/100 ML PIGGYBACK IV ONE (22:15)
[2023-08-30 23:11] VITALS: BP 102/57
--- NOTE | 2023-08-31 14:00 | EKG ---
[facility] [address] [place] [address] Signed Normal sinus rhythm Normal ECG When compared with ECG of 25-JUL-2023 04:21, No significant change was found Confirmed by Whitney Joy MD ([id number]) on 08/31/2023 2:00:25 PM Electronically Signed By: WHITNEY JOY 08/31/23 1400 PATIENT NAME: JONETERRELL [place] Electrocardiogram DATE OF : 47 PHYSICIAN: WHITNEY JOY REPORT #: [id number] REPORT IS CONFIDENTIAL AND NOT TO BE RELEASED WITHOUT AUTHORIZATION
== END 2023-08-30 23:11 | disposition home or self-care (01) ==
LOC: ED 20:34
PROVIDERS: Family Medicine
DX: N39.0 Urinary tract infection, site not specified (principal); I10 Essential (primary) hypertension; E11.9 Type 2 diabetes mellitus without complications; J45.909 Unspecified asthma, uncomplicated; M79.7 Fibromyalgia; M19.90 Unspecified osteoarthritis, unspecified site; I25.2 Old myocardial infarction; G47.30 Sleep apnea, unspecified; Z99.89 Dependence on other enabling machines and devices; Z88.8 Allergy status to other drugs, medicaments and biological substances; Z91.013 Allergy to seafood; Z91.030 Bee allergy status; Z91.018 Allergy to other foods; Z79.51 Long term (current) use of inhaled steroids; Z79.01 Long term (current) use of anticoagulants; Z79.82 Long term (current) use of aspirin; Z79.890 Hormone replacement therapy
CPT/HCPCS: 36415; 70450; 72125; 73030; 80053; 80307; 81001; 85025; 85610; 86850; 86900; 86901; 87088; 87186; 93005; 93010; 96374; 99284-25; G0480; J0696; J7040

== ENCOUNTER 2023-10-15 05:55 | Day surgery (SDC) | payer MEDICARE, OTHER ==
[~2023-10-15] VITALS: Ht 162.6 cm; Wt 77.3 kg
[~2023-10-15 05:55] MED LIST changes: +CEFDINIR300 MG PO; +MIDAZOLAM HCL 5 MG/5 ML VIAL IV PRN; +fentaNYL citrate 100 MCG/2 ML VIAL IV PRN
[2023-10-15 06:21] VITALS: BP 148/72
[2023-10-15 06:44] LABS: INR 1.16 (0.80-1.30); PROTIME 14.4 Sec (11.2-14.2)
[2023-10-15] MEDS ORDERED: [UNRECOGNIZED DRUG - OTHER] TOP (06:54)
[2023-10-15] MEDS ORDERED: CEFAZOLIN SODIUM 2 GM/20 ML SYR IV SCH (07:00)
[2023-10-15] MEDS ORDERED: IBLOOD GLUCOSE TEST STRIP 1 EA TEST VI PRN (07:00)
[2023-10-15] MEDS ORDERED: LACTATED RINGER'S 1,000 ML IV SCH (07:00)
[2023-10-15] MEDS ORDERED: LIDOCAINE HCL 1% 5 ML SDV INJ ONE (07:00)
[2023-10-15] MEDS ORDERED: FUROSEMIDE20 MG PO (07:15)
[2023-10-15] MEDS ORDERED: GABAPENTIN300 MG PO (07:16)
[2023-10-15] MEDS ORDERED: HYDROCODON-ACE1 EA10 PO (07:17)
[2023-10-15] MEDS ORDERED: OZEMPIC0.25 MG/02 SUB-Q (07:22)
[2023-10-15] MEDS ORDERED: K-TAB ER20 MEQ PO (07:24)
[2023-10-15] MEDS ORDERED: PROLIA60 MG/1 ML SUB-Q (07:25)
[2023-10-15] MEDS ORDERED: CALCIUM CARBON600 M1 PO (07:29)
[2023-10-15] MEDS ORDERED: PERIDEX473 M1 MM (07:30)
[2023-10-15] MEDS ORDERED: SOOTHE HYDRATIO15 ML OPTH (07:30)
[2023-10-15] MEDS ORDERED: PREVIDENT PO (07:31)
[2023-10-15] MEDS ORDERED: LIDOCAINE HCL 2% 5 ML SDV ONE (07:31)
[2023-10-15] MEDS ORDERED: propofoL 200 MG/20 ML VIAL ONE (07:31)
[2023-10-15] MEDS ORDERED: REFRESH TEARS15 ML OPTH (07:32)
[2023-10-15] MEDS ORDERED: KETAMINE in NS 50 MG/5 ML SYR ONE (07:32)
--- NOTE | 2023-10-15 07:58 | NUR ---
10/15/23 0758 Rosie Cantu 0753-PT TO PACU IN SF POSITION. EYES CLOSED. PT RESPONDS TO VERBAL AND TACTILE STIMULI. DENIES PAIN AND NAUSE AND FALLS BACK TO SLEEP. BREATHING EASY AND UNLABORED. SPO2 >95% ON 2 L O2 VIA NC. 0757-PT RESTING EYES CLOSED. BREATHING EASY AND UNLABORED. SPO2 >95% ON 2 L O2 VIA NC.
[2023-10-15 08:17] VITALS: BP 139/76
--- NOTE | 2023-10-15 12:12 | OR ---
[facility] [place] [facility] [address] [place], [place] [address] Signed DATE OF OPERATION: 10/15/2023 SURGEON: Valeriy Gillespie MD PREOPERATIVE DIAGNOSES: 1. Fatty cirrhotic liver. 2. Emily-en-Y gastric bypass in 2011. 3. Upper gastrointestinal bleeding, gastric pouch in 2019. POSTOPERATIVE DIAGNOSES: 1. Routine gastric pouch anatomy. 2. Gastroesophageal junction at 40 cm. 3. No esophageal varices. PROCEDURE: Esophagogastroduodenoscopy without biopsy. ESTIMATED BLOOD LOSS: None. INDICATIONS: Terrell is a 78-year-old female, well known to our medical community. I have helped her in the past with upper and lower endoscopies. She is known to have fatty liver and some cirrhosis of her liver. She was following with the Gastroenterology group in [place], [place]. They are moving their office over the [place], [place], which is about an hour or so away. Therefore, she has been sent to me as a local general surgeon for variceal surveillance of the esophagus. I helped her with her GI bleed of the gastric pouch in 2019. She probably has just a very tiny hiatal hernia. At that time, I did see an anastomotic clip. She had what probably was a small Schatzki ring dilated in [address] Georges Haque. She always come by herself from her extended care facility. She is always very pleasant, seemed to answer her questions fairly well. In the office I had given her a pamphlet on upper endoscopy. We discussed the nature of the test. There is risk including, but not limited to gas bloating, crampy abdominal pain, bleeding, perforation requiring surgery, and missed diagnosis. She understands no laxatives are needed for this procedure. We had her hold Eliquis five days prior to the procedure. She held the aspirin 3 days prior to the procedure. We had her hold the Ozempic one week prior to the procedure. Because of her advanced medical issues and her advanced age with frail nature, we did have our anesthesia provider help us with propofol infusion. In that regard, she required preop blood work and an EKG, which was unremarkable. Of course, she requires a right home based on just her age as well as her Electronically Signed By: VALERIY GILLESPIE MD 10/15/23 1212 PATIENT NAME: TERRELL BECERRIL [place] OPERATIVE REPORT DATE OF : 47 REPORT #: [id number] PHYSICIAN: VALERIY GILLESPIE MD PCP: ZUNILDA WALLER MD REPORT IS CONFIDENTIAL AND NOT TO BE RELEASED WITHOUT AUTHORIZATION [facility] [address] [place], [place] [address] Signed sedation. She had expressed understanding and wished to proceed. DESCRIPTION OF PROCEDURE: Terrell was taken into our endoscopy suite and placed in a supine semi-recumbent position. She was given monitored anesthesia care, propofol infusion per our nurse nursing education consultant. A bite block was utilized for the case. The adult gastroscope was introduced and advanced under direct visualization of camera without difficulty patient she had lots of food particles in her mouth all the way down her esophagus. One can see routine gastric pouch anatomy. We looked at the blind end of the Emily limb and went down the efferent limb about 20 cm, it is all quite healthy. Anastomosis was also very healthy. On this occasion, I did not see a clip. There were no ulcerations. There was no granulation tissue. The gastric pouch itself was unremarkable. We did not take any biopsies on this occasion. Her GE junction was about 40 cm. There was very minimal disruption along the edge of the Z-line. There was no Xie's mucosa. There was no distal esophagitis. We looked up and down the distal middle and upper esophagus quite extensively with and without insufflation. We could not appreciate any varices in her esophagus. After this, the gas was suctioned out, the gastroscope removed. Terrell tolerated the procedure quite well. RECOMMENDATIONS: Terrell can follow up my office as needed. She will return to the ongoing care of her primary care provider. Valeriy Gillespie MD ALB/MODL /[id number] cc: MD Zunilda Mora MD Patient Chart Electronically Signed By: VALERIY GILLESPIE MD 10/15/23 1212 PATIENT NAME: TERRELL BECERRIL [place] OPERATIVE REPORT DATE OF : 47 REPORT #: [id number] PHYSICIAN: VALERIY GILLESPIE MD PCP: ZUNILDA WALLER MD REPORT IS CONFIDENTIAL AND NOT TO BE RELEASED WITHOUT AUTHORIZATION [address] [address] Signed Copies: VALERIY GILLESPIE MD ~ Electronically Signed By: VALERIY GILLESPIE MD 10/15/23 1212 PATIENT NAME: TERRELL BECERRIL [place] OPERATIVE REPORT DATE OF : 47 REPORT #: [id number] PHYSICIAN: VALERIY GILLESPIE MD PCP: ZUNILDA WALLER MD REPORT IS CONFIDENTIAL AND NOT TO BE RELEASED WITHOUT AUTHORIZATION
== END 2023-10-15 08:25 | disposition home or self-care (01) ==
LOC: DS 05:55
PROVIDERS: ATTEND Colon & Rectal Surgery
PROC: 0DJ08ZZ Inspection of Upper Intestinal Tract, Via Natural or Artificial Opening Endoscopic (ICD-10-PCS; principal; 2023-10-15 07:30)
DX: K74.60 Unspecified cirrhosis of liver (principal); K76.0 Fatty (change of) liver, not elsewhere classified; E11.9 Type 2 diabetes mellitus without complications; E03.9 Hypothyroidism, unspecified; E55.9 Vitamin D deficiency, unspecified; I48.0 Paroxysmal atrial fibrillation; I25.10 Atherosclerotic heart disease of native coronary artery without angina pectoris; G47.33 Obstructive sleep apnea (adult) (pediatric); Z79.899 Other long term (current) drug therapy; Z88.8 Allergy status to other drugs, medicaments and biological substances; Z91.013 Allergy to seafood; Z91.030 Bee allergy status; Z98.84 Bariatric surgery status; Z99.89 Dependence on other enabling machines and devices
CPT/HCPCS: 36415; 85610; J0690; J2001; J2704; J3490; J7121

== ENCOUNTER 2023-10-27 20:57 | Emergency (ER) | payer MEDICARE, OTHER ==
[~2023-10-27] VITALS: Ht 162.6 cm; Wt 78.4 kg
[~2023-10-27 20:57] MED LIST changes: +CALCIUM CARBON600 M1 PO; +FUROSEMIDE20 MG PO; +GABAPENTIN300 MG PO; +HYDROCODON-ACE1 EA10 PO; +K-TAB ER20 MEQ PO; -MIDAZOLAM HCL 5 MG/5 ML VIAL IV PRN; +OZEMPIC0.25 MG/02 SUB-Q; +PERIDEX473 M1 MM; +PREVIDENT PO; +PROLIA60 MG/1 ML SUB-Q; +REFRESH TEARS15 ML OPTH; +SOOTHE HYDRATIO15 ML OPTH; +[UNRECOGNIZED DRUG - OTHER] TOP; -fentaNYL citrate 100 MCG/2 ML VIAL IV PRN
[2023-10-27 21:12] LABS: BASOPHILS 0.7 % (0-2); EOSINOPHILS 5.8 % (0-6); HEMATOCRIT 38.1 % (35.0-50.0); HEMOGLOBIN 12.6 g/dL (12.0-18.0); LYMPHOCYTES 45.3 % (24-44); MCH 30.9 (27-36); MCHC 33.1 g/dl (30-36); MCV 93.4 fl (81-99); MONOCYTES 9.7 % (0-12); NEUTROPHILS 38.5 % (39-80); PLATELET COUNT 180 K/uL (140-440); RBC 4.08 M/ul (4.3-5.7)
[2023-10-27] MEDS ORDERED: SODIUM CHLORIDE 0.9% 500 ML IV ONE (21:15)
[2023-10-27] MEDS ORDERED: SODIUM CHLORIDE 0.9% 500 ML IV PRN (21:15)
[2023-10-27 21:21] LABS: INR 1.66 (0.80-1.30); PROTIME 18.8 Sec (11.2-14.2)
[2023-10-27 21:29] LABS: ALBUMIN 2.9 g/dL (3.4-5.0); ALBUMIN/GLOBULIN RATIO 0.74 (1.1-2.4); ANION GAP 11.2 (7-21); BILIRUBIN, TOTAL 0.5 ng/dL (0.2-1.0); BUN/CREATININE RATIO 11.92 (6.0-28.6); CALCIUM 8.2 mg/dL (8.5-10.1); CREATININE, SERUM 1.09 mg/dL (0.55-1.02); POTASSIUM 4.2 mmol/L (3.5-5.1); PROTEIN, TOTAL 6.8 g/dL (6.4-8.2)
[2023-10-27 21:36] LABS: BILIRUBIN, URINE NEGATIVE (negative); BLOOD/HGB, URINE NEGATIVE (Negative); KETONE, URINE NEGATIVE (Negative); LEUK ESTERASE, URINE NEGATIVE (negative); NITRITE, URINE NEGATIVE (negative); PH, URINE 5.5 (5-7)
[2023-10-27 21:48] LABS: AMPHETAMINES, URINE NEGATIVE (NEGATIVE); BARBITURATES, URINE NEGATIVE (NEGATIVE); BENZODIAZEPINE, URINE NEGATIVE (NEGATIVE); BUPRENORPHINE, URINE NEGATIVE (NEGATIVE); CANNABINOID, URINE NEGATIVE (NEGATIVE); COCAINE, URINE NEGATIVE (NEGATIVE); ECSTASY, URINE NEGATIVE (NEGATIVE); FENTANYL, URINE NEGATIVE (NEGATIVE); METHADONE, URINE NEGATIVE (NEGATIVE); OPIATES, URINE NEGATIVE (NEGATIVE); OXYCODONE, URINE NEGATIVE (NEGATIVE); PHENCYCLIDINE, URINE NEGATIVE (NEGATIVE)
[2023-10-27 22:42] VITALS: BP 136/66
--- NOTE | 2023-10-29 07:30 | EKG ---
[facility] [address] [facility] [address] [place] [address] Signed Normal sinus rhythm Normal ECG When compared with ECG of 02-OCT-2023 23:19, No significant change was found Confirmed by Whitney Joy MD ([id number]) on 10/29/2023 7:30:16 AM Electronically Signed By: WHITNEY JOY 10/29/23 0730 PATIENT NAME: JONETERRELL [place] Electrocardiogram DATE OF : 47 PHYSICIAN: WHITNEY JOY REPORT #: [id number] REPORT IS CONFIDENTIAL AND NOT TO BE RELEASED WITHOUT AUTHORIZATION
== END 2023-10-27 22:42 | disposition home or self-care (01) ==
LOC: ED 20:57
PROVIDERS: Family Medicine
DX: S16.1XXA Strain of muscle, fascia and tendon at neck level, initial encounter (principal); R55 Syncope and collapse; F03.90 Unspecified dementia, unspecified severity, without behavioral disturbance, psychotic disturbance, mood disturbance, and anxiety; I10 Essential (primary) hypertension; E11.9 Type 2 diabetes mellitus without complications; J45.909 Unspecified asthma, uncomplicated; I25.2 Old myocardial infarction; G47.30 Sleep apnea, unspecified; W19.XXXA Unspecified fall, initial encounter; Z86.73 Personal history of transient ischemic attack (TIA), and cerebral infarction without residual deficits; Z91.013 Allergy to seafood; Z91.018 Allergy to other foods; Z88.8 Allergy status to other drugs, medicaments and biological substances; Z91.038 Other insect allergy status; Z79.899 Other long term (current) drug therapy; Z79.51 Long term (current) use of inhaled steroids; Z79.82 Long term (current) use of aspirin
CPT/HCPCS: 36415; 70450; 72125; 80053; 80307; 81003; 84484; 85025; 85610; 93005; 93010; G0480; J7040

== ENCOUNTER 2023-10-30 20:38 | Emergency (ER) | payer MEDICARE, OTHER ==
[~2023-10-30] VITALS: Ht 162.6 cm; Wt 80.0 kg
[2023-10-30] MEDS ORDERED: PAXLOVID 300-11 EAC1 PO (21:08)
[2023-10-30 21:37] LABS: BASOPHILS 0.9 % (0-2); EOSINOPHILS 6.2 % (0-6); HEMATOCRIT 36.6 % (35.0-50.0); LYMPHOCYTES 31.2 % (24-44); MCH 30.9 (27-36); MCHC 32.8 g/dl (30-36); MCV 94.3 fl (81-99); MONOCYTES 8.6 % (0-12); NEUTROPHILS 53.1 % (39-80); PLATELET COUNT 208 K/uL (140-440); RBC 3.88 M/ul (4.3-5.7); RDW 14.1 (10.5-15.0)
[2023-10-30 21:50] LABS: BILIRUBIN, URINE NEGATIVE (negative); BLOOD/HGB, URINE NEGATIVE (Negative); KETONE, URINE NEGATIVE (Negative); LEUK ESTERASE, URINE NEGATIVE (negative); NITRITE, URINE NEGATIVE (negative); PH, URINE 5.5 (5-7)
[2023-10-30 21:51] LABS: ALBUMIN 2.7 g/dL (3.4-5.0); ALBUMIN/GLOBULIN RATIO 0.75 (1.1-2.4); ALCOHOL, MEDICAL <3 ng/dL (<3); ALKALINE PHOSPHATASE 100 U/L (46-116); ALT (SGPT) 22 U/L (14-59); ANION GAP 11.5 (7-21); AST (SGOT) 27 U/L (15-37); BILIRUBIN, TOTAL 0.3 ng/dL (0.2-1.0); BUN/CREATININE RATIO 15.55 (6.0-28.6); CALCIUM 7.8 mg/dL (8.5-10.1); CARBON DIOXIDE 29 mmol/L (21-32); CHLORIDE 103 mmol/L (98-107); CREATINE KINASE 106 U/L (26-192); CREATININE, SERUM 1.35 mg/dL (0.55-1.02); GLOMERULAR FILTRATION RATE,EST 40 mL/min (>60); POTASSIUM 3.5 mmol/L (3.5-5.1); PROTEIN, TOTAL 6.3 g/dL (6.4-8.2); UREA NITROGEN 21 mg/dL (7-18)
[2023-10-30 22:04] LABS: AMPHETAMINES, URINE NEGATIVE (NEGATIVE); BARBITURATES, URINE NEGATIVE (NEGATIVE); BENZODIAZEPINE, URINE NEGATIVE (NEGATIVE); BUPRENORPHINE, URINE NEGATIVE (NEGATIVE); CANNABINOID, URINE NEGATIVE (NEGATIVE); COCAINE, URINE NEGATIVE (NEGATIVE); ECSTASY, URINE NEGATIVE (NEGATIVE); FENTANYL, URINE NEGATIVE (NEGATIVE); METHADONE, URINE NEGATIVE (NEGATIVE); OPIATES, URINE NEGATIVE (NEGATIVE); OXYCODONE, URINE NEGATIVE (NEGATIVE); PHENCYCLIDINE, URINE NEGATIVE (NEGATIVE)
[2023-10-30] MEDS ORDERED: LACTATED RINGER'S 1,000 ML IV ONE (23:15)
[2023-10-31 01:06] VITALS: BP 171/74
== END 2023-10-31 01:06 | disposition home or self-care (01) ==
LOC: ED 20:38
PROVIDERS: Internal Medicine
DX: R51.9 Headache, unspecified (principal); R47.81 Slurred speech; W18.30XA Fall on same level, unspecified, initial encounter; I10 Essential (primary) hypertension; E11.9 Type 2 diabetes mellitus without complications; J45.909 Unspecified asthma, uncomplicated; G47.30 Sleep apnea, unspecified; Z88.8 Allergy status to other drugs, medicaments and biological substances; Z91.013 Allergy to seafood; Z91.030 Bee allergy status; Z79.899 Other long term (current) drug therapy; Z79.82 Long term (current) use of aspirin
CPT/HCPCS: 36415; 51701; 70450; 70496; 70498; 71045; 72125; 80053; 80307; 81003; 82553; 85025; 99285-25; G0480; J7121

== ENCOUNTER 2023-10-31 09:15 | Emergency (ER) | payer MEDICARE, OTHER ==
[~2023-10-31 09:15] MED LIST changes: +PAXLOVID 300-11 EAC1 PO
[2023-10-31 10:13] LABS: BASOPHILS 0.4 % (0-2); EOSINOPHILS 4.5 % (0-6); HEMATOCRIT 41.1 % (35.0-50.0); HEMOGLOBIN 13.5 g/dL (12.0-18.0); LYMPHOCYTES 14.8 % (24-44); MCH 30.6 (27-36); MCV 92.9 fl (81-99); MONOCYTES 7.6 % (0-12); NEUTROPHILS 72.7 % (39-80); PLATELET COUNT 229 K/uL (140-440); RBC 4.42 M/ul (4.3-5.7); RDW 14.3 (10.5-15.0)
[2023-10-31 10:28] LABS: ALBUMIN 3.1 g/dL (3.4-5.0); ALBUMIN/GLOBULIN RATIO 0.76 (1.1-2.4); ALCOHOL, MEDICAL <3 ng/dL (<3); ALKALINE PHOSPHATASE 112 U/L (46-116); ALT (SGPT) 24 U/L (14-59); AST (SGOT) 32 U/L (15-37); BILIRUBIN, TOTAL 0.4 ng/dL (0.2-1.0); BUN/CREATININE RATIO 13.13 (6.0-28.6); CALCIUM 8.2 mg/dL (8.5-10.1); CARBON DIOXIDE 30 mmol/L (21-32); CHLORIDE 104 mmol/L (98-107); CREATININE, SERUM 0.99 mg/dL (0.55-1.02); GLOMERULAR FILTRATION RATE,EST 59 mL/min (>60); PROTEIN, TOTAL 7.2 g/dL (6.4-8.2); UREA NITROGEN 13 mg/dL (7-18)
[2023-10-31 10:43] LABS: ABO A; ANTIBODY SCREEN NEGATIVE; RH POSITIVE
[2023-10-31 12:37] VITALS: BP 184/61
[2023-10-31 12:57] LABS: AMPHETAMINES, URINE NEGATIVE (NEGATIVE); BARBITURATES, URINE NEGATIVE (NEGATIVE); BENZODIAZEPINE, URINE NEGATIVE (NEGATIVE); BUPRENORPHINE, URINE NEGATIVE (NEGATIVE); CANNABINOID, URINE NEGATIVE (NEGATIVE); COCAINE, URINE NEGATIVE (NEGATIVE); ECSTASY, URINE NEGATIVE (NEGATIVE); FENTANYL, URINE NEGATIVE (NEGATIVE); METHADONE, URINE NEGATIVE (NEGATIVE); OPIATES, URINE NEGATIVE (NEGATIVE); OXYCODONE, URINE NEGATIVE (NEGATIVE); PHENCYCLIDINE, URINE NEGATIVE (NEGATIVE)
== END 2023-10-31 12:37 | disposition home or self-care (01) ==
LOC: ED 09:15
PROVIDERS: Emergency Medicine
DX: M25.561 Pain in right knee (principal); M25.512 Pain in left shoulder; M25.511 Pain in right shoulder; I10 Essential (primary) hypertension; E11.9 Type 2 diabetes mellitus without complications; J45.909 Unspecified asthma, uncomplicated; I25.2 Old myocardial infarction; G47.30 Sleep apnea, unspecified; F03.90 Unspecified dementia, unspecified severity, without behavioral disturbance, psychotic disturbance, mood disturbance, and anxiety; Z95.5 Presence of coronary angioplasty implant and graft; Z88.8 Allergy status to other drugs, medicaments and biological substances; Z91.030 Bee allergy status; Z91.013 Allergy to seafood; Z91.018 Allergy to other foods; Z79.899 Other long term (current) drug therapy; Z79.01 Long term (current) use of anticoagulants; Z79.890 Hormone replacement therapy; Z79.82 Long term (current) use of aspirin; Z91.81 History of falling; W18.30XA Fall on same level, unspecified, initial encounter; Y92.099 Unspecified place in other non-institutional residence as the place of occurrence of the external cause
CPT/HCPCS: 36415; 70450; 71045; 72125; 72170; 73030; 73560; 80053; 80307; 85025; 86850; 86900; 86901; 99284-25; G0480

== ENCOUNTER 2024-01-02 21:12 | Inpatient (IN) | payer MEDICARE, OTHER ==
[~2024-01-02] VITALS: Ht 162.6 cm; Wt 78.9 kg
[2024-01-02 21:36] LABS: BASOPHILS 0.7 % (0-2); EOSINOPHILS 3.4 % (0-6); HEMATOCRIT 35.6 % (35.0-50.0); HEMOGLOBIN 11.8 g/dL (12.0-18.0); LYMPHOCYTES 29.4 % (24-44); MCH 31.1 (27-36); MCHC 33.1 g/dl (30-36); MCV 94.1 fl (81-99); MONOCYTES 10.5 % (0-12); PLATELET COUNT 164 K/uL (140-440); RBC 3.79 M/ul (4.3-5.7); RDW 14.9 (10.5-15.0)
[2024-01-02 21:46] LABS: PARTIAL THROMBOPLASTIN TIME 27.1 Sec (22.9-41.3)
[2024-01-02 21:47] LABS: INR 1.25 (0.80-1.30)
[2024-01-02 22:00] LABS: ALBUMIN 2.7 g/dL (3.4-5.0); ALBUMIN/GLOBULIN RATIO 0.82 (1.1-2.4); ALCOHOL, MEDICAL <3 ng/dL (<3); ALKALINE PHOSPHATASE 97 U/L (46-116); ALT (SGPT) 41 U/L (14-59); ANION GAP 8.1 (7-21); AST (SGOT) 39 U/L (15-37); BILIRUBIN, TOTAL 0.4 ng/dL (0.2-1.0); BUN/CREATININE RATIO 9.32 (6.0-28.6); CALCIUM 8.3 mg/dL (8.5-10.1); CARBON DIOXIDE 32 mmol/L (21-32); CHLORIDE 106 mmol/L (98-107); CREATININE, SERUM 1.18 mg/dL (0.55-1.02); GLOMERULAR FILTRATION RATE,EST 48 mL/min (>60); POTASSIUM 4.1 mmol/L (3.5-5.1); TSH, 3RD GENERATION 48.375 uIU/mL (0.358-3.740); UREA NITROGEN 11 mg/dL (7-18)
[2024-01-02 22:46] LABS: AMPHETAMINES, URINE NEGATIVE (NEGATIVE); BARBITURATES, URINE NEGATIVE (NEGATIVE); BENZODIAZEPINE, URINE NEGATIVE (NEGATIVE); BUPRENORPHINE, URINE NEGATIVE (NEGATIVE); CANNABINOID, URINE NEGATIVE (NEGATIVE); COCAINE, URINE NEGATIVE (NEGATIVE); ECSTASY, URINE NEGATIVE (NEGATIVE); FENTANYL, URINE NEGATIVE (NEGATIVE); METHADONE, URINE NEGATIVE (NEGATIVE); OPIATES, URINE NEGATIVE (NEGATIVE); OXYCODONE, URINE NEGATIVE (NEGATIVE); PHENCYCLIDINE, URINE NEGATIVE (NEGATIVE)
[2024-01-02 23:45] VITALS: BP 154/71
[2024-01-02 23:54] LABS: BILIRUBIN, URINE NEGATIVE (negative); BLOOD/HGB, URINE NEGATIVE (Negative); KETONE, URINE NEGATIVE (Negative); LEUK ESTERASE, URINE NEGATIVE (negative); NITRITE, URINE NEGATIVE (negative)
--- NOTE | 2024-01-03 00:43 | NUR ---
PT TO FLOOR WITH ED RN VIA STRETCHER AT APPROX 2335. BEDSIDE REPORT RECEIVED. PT ALERT AND ORIENTED. SLIDE TRANSFER TO BED WITH 4PA ASSIST. VS AND WEIGHT OBTAINED. GLASS EMBOSSER IN FOR ADMISSION. ADMISSION ASSESSMENT COMPLETE. NEURO CHECK COMPLETE. FURNACE OPERATOR STRENGTH EQUAL BILAT. PT DENIES N/T. DENIES VISUAL DISTURBANCES. SLIGHT LEFT FACIAL DROOP NOTED. NO SWALLOWING ISSUES NOTED. PT C/O HEADACHE. NIO PLACED FOR TYLENOL. 2L/NC PLACED PT DOES NOT HAVE HOME CPAP. PUREWICK PATENT WITH YELLOW URINE. PT ORIENTED TO ROOM AND NURSE CALL LIGHT. SON AT BEDSIDE. PT/FAMILY DENY QUESTIONS OR CONCERNS. CALL LIGHT IN REACH. BED ALARM FOR SAFETY.
[2024-01-03] MEDS ORDERED: ACETAMINOPHEN 500 MG TAB PO PRN (00:45)
--- NOTE | 2024-01-03 01:19 | NUR ---
PT REPORTS HEADACHE PAIN 11/02. PRN FOR PAIN ADMIN PER EMAR. PT UP TO BSC WITH MINIMAL SBA AND FWW TO VOID 400 ML YELLOW URINE. PT ABLE TO DO OWN MALINDA CARE AND WASH HANDS. BACK TO BED, RADHA WELL. GAIT STEADY. NO FURTHER NEEDS. BED ALARM FOR SAFETY.
--- NOTE | 2024-01-03 03:01 | NUR ---
PT RESTING IN BED WITH EYES CLOSED. RESPIRATIONS EVEN. CALL LIGHT IN REACH. BED ALARM FOR SAFETY.
[2024-01-03 05:21] VITALS: BP 179/75
[2024-01-03 05:24] VITALS: BP 179/75
[2024-01-03 05:30] LABS: BASOPHILS 0.6 % (0-2); EOSINOPHILS 1.3 % (0-6); HEMATOCRIT 36.2 % (35.0-50.0); LYMPHOCYTES 24.8 % (24-44); MCHC 33.2 g/dl (30-36); MCV 93.4 fl (81-99); MONOCYTES 8.5 % (0-12); NEUTROPHILS 64.8 % (39-80); PLATELET COUNT 161 K/uL (140-440); RBC 3.88 M/ul (4.3-5.7); RDW 15.3 (10.5-15.0)
--- NOTE | 2024-01-03 05:45 | NUR ---
LAB IN ROOM FOR MORNING DRAW. PT UP TO BSC WITH FWW AND SBA TO VOID. PT ABLE TO DO OWN MALINDA CARE. BACK TO BED, RADHA WELL. GAIT STEADY. NEURO ASSESSMENT UNCHANGED. VS AND I&O OBTAINED. PT DENIES FURTHER NEEDS. BED ALARM FOR SAFETY. CALL LIGHT IN REACH.
[2024-01-03 05:49] LABS: ANION GAP 11.1 (7-21); BUN/CREATININE RATIO 11.57 (6.0-28.6); CALCIUM 8.5 mg/dL (8.5-10.1); CREATININE, SERUM 0.95 mg/dL (0.55-1.02); MAGNESIUM 1.7 mg/dL (1.8-2.4); PHOSPHORUS, INORGANIC 5.5 mg/dL (2.5-4.9); POTASSIUM 4.1 mmol/L (3.5-5.1)
[2024-01-03] MEDS ORDERED: LEVOTHYROXINE SODIUM 125 MCG TAB PO SCH (07:00)
--- NOTE | 2024-01-03 07:03 | NUR ---
PT BACK TO FLOOR FROM MRI. TELE PLACED. ORTHOSTATIC VS OBTAINED, PT RADHA WELL. PT DOES REPORT SLIGHT NAUSEA AND LIGHTHEADEDNESS UPON STANDING THAT IS CHRONIC "IN THE MORNINGS." BACK TO BED. NO FURTHER NEEDS. BED ALARM IN PLACE. CALL LIGHT IN REACH.
--- NOTE | 2024-01-03 07:24 | NUR ---
REPORT RECIEVED FROM SOO VILLASEÑOR. PT RESTING IN BED. CALL LIGHT IN REACH.
--- NOTE | 2024-01-03 08:57 | NUR ---
FAXED PATIENT H&P AND ER RECORD TO [facility] FOR REVIEW.
--- NOTE | 2024-01-03 08:58 | NUR ---
SHIFT ASSESSMENT COMPLETE. MEDICATIONS ADMIN PER EMAR. C/O TENDERNESS IN THE L. CHEST/RIBS. EATING BREAKFAST SITTING AT EDGE OF BED. DENIES ANY NEEDS AT THIS TIME, CALL LIGHT IN REACH.
[2024-01-03] MEDS ORDERED: carvediloL 6.25 MG TAB PO SCH (09:00)
[2024-01-03] MEDS ORDERED: MAGNESIUM SULFATE 2 GM/50 ML BAG IV ONE (09:00)
[2024-01-03] MEDS ORDERED: APIXABAN 5 MG TAB PO SCH (09:00)
[2024-01-03] MEDS ORDERED: ASPIRIN 81 MG TABEC PO SCH (09:00)
[2024-01-03] MEDS ORDERED: CARVEDILOL12.5 MG PO (09:43)
--- NOTE | 2024-01-03 09:45 | NUR ---
PT RESTING IN BED. IVF COMPLETE, IV SL NOW. DENIES ANY NEEDS AT THIS TIME, CALL LIGHT IN REACH.
[2024-01-03 09:46] VITALS: BP 120/65
[2024-01-03] MEDS ORDERED: LEVOTHYROXINE88 MCG PO ×2 (09:46→13:47)
--- NOTE | 2024-01-03 09:48 | NUR ---
VISITED DURING SPIRITUAL CARE ROUNDS. PT REQUESTED HER SR. MANAGER MARKETING, KIRSTY VALIENTE, BE NOTIFIED OF HER PRESENCE IN HOSPITAL. MANAGEMENT ASSISTANT PROVIDED SUPPORTIVE PRESENCE, FACILITATED CONNECTION WITH [employer], PRAYER. NOTIFIED SR. MANAGER MARKETING KIRSTY OF PT REQUEST.
--- NOTE | 2024-01-03 09:51 | NUR ---
UR CLINICAL REVIEW: 2 MN FOR VERSALUS-MEETS INPT CRITERIA MEDICARE INPT 01/02/24 @ 0496 ORDER MATCHES REG NO AUTH REQUIRIED PER MEDICARE GUIDELINES DISCHARGE TO HOME PENDING FURTHER EVAL
[2024-01-03 10:17] VITALS: BP 120/65
--- NOTE | 2024-01-03 10:26 | NUR ---
PASTOR LOFTON RESPONDED TO CALL-BACK REQUEST BUT IS UNABLE TO VISIT. RAKE OPERATOR ASKED PT IF THERE WAS SOMEONE ELSE SHE WOULD LIKE TO BE NOTIFIED. PT INDICATED NO FURTHER NOTIFICATIONS REQUIRED. RAKE OPERATOR PROVIDED SUPPORTIVE PRESENCE, HOSPITALITY, PRAYER. PT EXPRESSED GRATITUDE.
--- NOTE | 2024-01-03 10:36 | NUR ---
SPOKE TO PATIENT ABOUT THE DC PLAN. PATIENT PLANS TO GO TO [facility] WHEN MEDICALLY STABLE. PATIENT'S DEMOGRAPHICS ARE CORRECT. PATIENT HAS HAD A STROKE IN THE PAST. PATIENT HAD A MRI TODAY AND HAS GREATLY IMPROVED SINCE LAST NIGHT. PATIENT IS ABLE TO ANSWER QUESTIONS WITHOUT PROBLEMS. PATIENT HAS NO FINANCIAL ISSUES. [facility] WAS SENT UPDATED NOTES TO REVIEW. PT WORKED WITH THE PATIENT TODAY AND PATIENT HAD SLIGHT DIZZINES. PATIENT MAY DC IN 1-2 DAYS.
--- NOTE | 2024-01-03 10:43 | NUR ---
PT UP IN CHAIR WATCHING TV AND EATING A SNACK. LOTION APPLIED TO BLE. DENIES ANY FURTHER NEEDS, CALL LIGHT IN REACH.
--- NOTE | 2024-01-03 11:00 | NUR ---
SPOKE TO PATIENT ABOUT THE DC PLAN. PATIENT LIVES WITH HER . PATIENT'S DEMOGRAHICS ARE CORRECT. PATIENT DOES NOT USE DME. PATIENT HAS NO FIANCIAL ISSUES. PATIENT IS ABLE TO DRIVE. PATIENT HAS FRIENDS AND FAMILY THAT CAN HELP NEEDED. PATIENT WILL BE IN THE HOSPITAL 2-3 DAYS MORE TO WEAN THE PATIENT'S STERIODS. THE PATIENT HAS NO DC NEEDS AT THIS TIME.
[2024-01-03] MEDS ORDERED: PHARMACY RENAL DOSE ADJUSTMENT 1 DOSE MISC PO SCH (12:00)
--- NOTE | 2024-01-03 12:25 | EKG ---
[facility] [address] [facility] [place] [address] Signed Sinus rhythm with 1st degree AV block Otherwise normal ECG When compared with ECG of 27-OCT-2023 20:59, No significant change was found Confirmed by Diego Melgar MD ([id number]) on 01/03/2024 12:25:48 PM Electronically Signed By: DIEGO MELGAR MD 01/03/24 1225 PATIENT NAME: JONETERRELL IRASBURG Electrocardiogram DATE OF : 47 PHYSICIAN: DIEGO MELGAR MD REPORT #: [id number] REPORT IS CONFIDENTIAL AND NOT TO BE RELEASED WITHOUT AUTHORIZATION
[2024-01-03 13:43] VITALS: BP 161/78
--- NOTE | 2024-01-03 13:48 | NUR ---
PT SITTING AT EDGE OF BED. SHIFT ASSESSMENT COMPLETE. IN ROOM TO SPEAK WITH PT AND SON. PLAN IS TO DC HOME TODAY. PT DENIES ANY NEEDS AT THIS TIME, CALL LIGHT IN REACH
[2024-01-03] MEDS ORDERED: ATORVASTATIN 40 MG TAB PO SCH (21:00)
== END 2024-01-03 15:12 | disposition home or self-care (01) | DRG 103 ==
LOC: ED 21:12 → MS 23:02
PROVIDERS: Internal Medicine; ADMIT Student in an Organized Health Care Education/Training Program; ATTEND Student in an Organized Health Care Education/Training Program
DX: G43.809 Other migraine, not intractable, without status migrainosus (principal); G45.9 Transient cerebral ischemic attack, unspecified; G45.8 Other transient cerebral ischemic attacks and related syndromes; G81.94 Hemiplegia, unspecified affecting left nondominant side; I10 Essential (primary) hypertension; I25.10 Atherosclerotic heart disease of native coronary artery without angina pectoris; E11.9 Type 2 diabetes mellitus without complications; J45.909 Unspecified asthma, uncomplicated; M79.7 Fibromyalgia; M19.90 Unspecified osteoarthritis, unspecified site; G47.30 Sleep apnea, unspecified; E89.0 Postprocedural hypothyroidism; Z95.2 Presence of prosthetic heart valve; Z79.01 Long term (current) use of anticoagulants; I69.344 Monoplegia of lower limb following cerebral infarction affecting left non-dominant side; I69.392 Facial weakness following cerebral infarction; Z95.820 Peripheral vascular angioplasty status with implants and grafts; Z79.890 Hormone replacement therapy; Z95.5 Presence of coronary angioplasty implant and graft; Z90.49 Acquired absence of other specified parts of digestive tract
CPT/HCPCS: 36415; 70450; 70496; 70498; 70551; 71045; 80048; 80053; 80307; 81003; 83735; 84100; 84439; 84443; 85025; 85610; 85730; 93005; 93010; 93306; 97161; 97165; 97530; 99285-25; A9270; G0480; J3475

== ENCOUNTER 2024-01-06 17:55 | Emergency (ER) | payer MEDICARE, OTHER ==
[~2024-01-06] VITALS: Ht 162.6 cm; Wt 82.4 kg
[~2024-01-06 17:55] MED LIST changes: +CARVEDILOL12.5 MG PO; +LEVOTHYROXINE88 MCG PO
[2024-01-06 18:06] LABS: BASOPHILS 0.7 % (0-2); EOSINOPHILS 2.9 % (0-6); HEMATOCRIT 36.4 % (35.0-50.0); HEMOGLOBIN 11.8 g/dL (12.0-18.0); LYMPHOCYTES 32.8 % (24-44); MCH 30.7 (27-36); MCHC 32.5 g/dl (30-36); MCV 94.4 fl (81-99); NEUTROPHILS 53.6 % (39-80); PLATELET COUNT 192 K/uL (140-440); RBC 3.86 M/ul (4.3-5.7); RDW 15.1 (10.5-15.0)
[2024-01-06 18:22] LABS: ALBUMIN 3.1 g/dL (3.4-5.0); ALBUMIN/GLOBULIN RATIO 0.89 (1.1-2.4); ALCOHOL, MEDICAL <3 ng/dL (<3); ALKALINE PHOSPHATASE 107 U/L (46-116); ALT (SGPT) 30 U/L (14-59); ANION GAP 9.9 (7-21); AST (SGOT) 31 U/L (15-37); BILIRUBIN, TOTAL 0.4 ng/dL (0.2-1.0); BUN/CREATININE RATIO 14.67 (6.0-28.6); CALCIUM 8.7 mg/dL (8.5-10.1); CARBON DIOXIDE 31 mmol/L (21-32); CHLORIDE 100 mmol/L (98-107); CREATININE, SERUM 1.09 mg/dL (0.55-1.02); GLOMERULAR FILTRATION RATE,EST 52 mL/min (>60); POTASSIUM 3.9 mmol/L (3.5-5.1); PROTEIN, TOTAL 6.6 g/dL (6.4-8.2); UREA NITROGEN 16 mg/dL (7-18)
[2024-01-06] MEDS ORDERED: ACETAMINOPHEN 500 MG TAB PO ONE (19:00)
[2024-01-06 19:04] VITALS: BP 203/74
[2024-01-07] MEDS ORDERED: COREG6.25 MG PO (01:08)
[2024-01-07] MEDS ORDERED: MAGNESIUM SULFATE 50 ML IV ONE (01:13)
[2024-01-07] MEDS ORDERED: ACETAMINOPHEN 325 MG TAB ONE (04:28)
== END 2024-01-06 19:04 | disposition home or self-care (01) ==
LOC: ED 17:55
PROVIDERS: Emergency Medicine
DX: S09.90XA Unspecified injury of head, initial encounter (principal); I10 Essential (primary) hypertension; E11.9 Type 2 diabetes mellitus without complications; J45.909 Unspecified asthma, uncomplicated; I25.2 Old myocardial infarction; G47.30 Sleep apnea, unspecified; W01.0XXA Fall on same level from slipping, tripping and stumbling without subsequent striking against object, initial encounter; Z86.73 Personal history of transient ischemic attack (TIA), and cerebral infarction without residual deficits; Z79.82 Long term (current) use of aspirin; Z79.899 Other long term (current) drug therapy; Z79.51 Long term (current) use of inhaled steroids; Z88.5 Allergy status to narcotic agent; Z91.013 Allergy to seafood; Z91.030 Bee allergy status; Z91.018 Allergy to other foods; Z88.8 Allergy status to other drugs, medicaments and biological substances
CPT/HCPCS: 36415; 70450; 72125; 80053; 85025; 99284-25; A9270; G0480

== ENCOUNTER 2024-01-06 22:09 | Emergency (ER) | payer MEDICARE, OTHER ==
[~2024-01-06] VITALS: Ht 162.6 cm; Wt 80.0 kg
[2024-01-06 22:25] LABS: BASOPHILS 0.6 % (0-2); EOSINOPHILS 2.7 % (0-6); HEMATOCRIT 33.7 % (35.0-50.0); LYMPHOCYTES 24.2 % (24-44); MCH 30.8 (27-36); MCHC 32.6 g/dl (30-36); MCV 94.5 fl (81-99); NEUTROPHILS 63.5 % (39-80); PLATELET COUNT 161 K/uL (140-440); RBC 3.56 M/ul (4.3-5.7); RDW 15.5 (10.5-15.0)
[2024-01-06] MEDS ORDERED: SODIUM CHLORIDE 0.9% 500 ML IV PRN (22:30)
[2024-01-06 22:41] LABS: ALBUMIN 2.7 g/dL (3.4-5.0); ALBUMIN/GLOBULIN RATIO 0.84 (1.1-2.4); ANION GAP 11.3 (7-21); BILIRUBIN, TOTAL 0.5 ng/dL (0.2-1.0); BUN/CREATININE RATIO 14.52 (6.0-28.6); CALCIUM 8.1 mg/dL (8.5-10.1); CREATININE, SERUM 1.17 mg/dL (0.55-1.02); MAGNESIUM 1.6 mg/dL (1.8-2.4); POTASSIUM 3.3 mmol/L (3.5-5.1); PROTEIN, TOTAL 5.9 g/dL (6.4-8.2)
[2024-01-06 23:22] LABS: BILIRUBIN, URINE NEGATIVE (negative); BLOOD/HGB, URINE NEGATIVE (Negative); KETONE, URINE NEGATIVE (Negative); LEUK ESTERASE, URINE TRACE (negative); NITRITE, URINE NEGATIVE (negative); PH, URINE 5.5 (5-7)
[2024-01-06 23:29] LABS: EPITHELIAL CELLS, URINE SQUAMOUS 1+ /lpf (0-1+)
[2024-01-06 23:30] LABS: RED BLOOD CELLS, URINE 0-1 /hpf (0-5)
[2024-01-06 23:36] LABS: BACTERIA, URINE RARE /hpf (negative); CASTS, URINE NONE SEEN \\lpf; COLLECTION TYPE, URINE CLEAN CATCH; CRYSTALS, URINE CALCIUM OXALATE 2+ (0-1+); REFLEX CULTURE, URINE No (No)
[2024-01-07] MEDS ORDERED: COREG6.25 MG PO (01:08)
[2024-01-07] MEDS ORDERED: MAGNESIUM SULFATE 2 GM/50 ML BAG IV ONE (01:15)
[2024-01-07] MEDS ORDERED: ACETAMINOPHEN 325 MG TAB PO ONE (04:30)
[2024-01-07 08:19] VITALS: BP 160/69
== END 2024-01-07 08:19 | disposition home or self-care (01) ==
LOC: ED 22:09
PROVIDERS: Family Medicine
DX: I95.9 Hypotension, unspecified (principal); E83.42 Hypomagnesemia; I10 Essential (primary) hypertension; E03.9 Hypothyroidism, unspecified; J45.909 Unspecified asthma, uncomplicated; G47.30 Sleep apnea, unspecified; I25.2 Old myocardial infarction; Z95.5 Presence of coronary angioplasty implant and graft; Z88.8 Allergy status to other drugs, medicaments and biological substances; Z91.030 Bee allergy status; Z91.013 Allergy to seafood; Z91.018 Allergy to other foods; Z79.899 Other long term (current) drug therapy; Z79.01 Long term (current) use of anticoagulants
CPT/HCPCS: 36415; 80053; 81001; 83735; 85025; 96365; 99284-25; A9270; J3475; J7040

== ENCOUNTER 2024-01-17 06:54 | Emergency (ER) | payer MEDICARE, OTHER ==
[~2024-01-17] VITALS: Ht 162.6 cm; Wt 77.6 kg
[~2024-01-17 06:54] MED LIST changes: +COREG6.25 MG PO
[2024-01-17] MEDS ORDERED: hydrALAZINE HCL 20 MG/ML VIAL IV ONE ×2 (07:15→08:30)
[2024-01-17] MEDS ORDERED: ondansetron HCL 4 MG/2 ML VIAL IV ONE (07:15)
[2024-01-17 07:17] LABS: BASOPHILS 0.8 % (0-2); EOSINOPHILS 3.6 % (0-6); HEMATOCRIT 43.6 % (35.0-50.0); HEMOGLOBIN 14.5 g/dL (12.0-18.0); LYMPHOCYTES 26.8 % (24-44); MCH 30.9 (27-36); MCHC 33.2 g/dl (30-36); MCV 93.1 fl (81-99); MONOCYTES 9.7 % (0-12); NEUTROPHILS 59.1 % (39-80); PLATELET COUNT 225 K/uL (140-440); RBC 4.69 M/ul (4.3-5.7); RDW 15.6 (10.5-15.0)
[2024-01-17 07:27] LABS: PARTIAL THROMBOPLASTIN TIME 21.1 Sec (22.9-41.3)
[2024-01-17 07:28] LABS: INR 1.23 (0.80-1.30); PROTIME 14.8 Sec (11.2-14.2)
[2024-01-17 07:38] LABS: ALBUMIN 3.6 g/dL (3.4-5.0); ALBUMIN/GLOBULIN RATIO 0.8 (1.1-2.4); BILIRUBIN, TOTAL 0.8 ng/dL (0.2-1.0); BUN/CREATININE RATIO 12.22 (6.0-28.6); CALCIUM 9.2 mg/dL (8.5-10.1); CREATININE, SERUM 0.9 mg/dL (0.55-1.02); MAGNESIUM 1.6 mg/dL (1.8-2.4); PROTEIN, TOTAL 8.1 g/dL (6.4-8.2)
[2024-01-17 08:38] LABS: BILIRUBIN, URINE NEGATIVE (negative); BLOOD/HGB, URINE NEGATIVE (Negative); KETONE, URINE NEGATIVE (Negative); LEUK ESTERASE, URINE NEGATIVE (negative); NITRITE, URINE NEGATIVE (negative); PH, URINE 7.5 (5-7)
[2024-01-17 08:56] LABS: BACTERIA, URINE RARE /hpf (negative); CASTS, URINE NONE SEEN \\lpf; COLLECTION TYPE, URINE CLEAN CATCH; CRYSTALS, URINE NONE SEEN (0-1+); EPITHELIAL CELLS, URINE SQUAMOUS 1+ /lpf (0-1+); RED BLOOD CELLS, URINE 0-1 /hpf (0-5); REFLEX CULTURE, URINE No (No); WHITE BLOOD CELLS, URINE 0-1 /HPF (0-5)
[2024-01-17 09:12] VITALS: BP 159/65
--- NOTE | 2024-01-17 11:29 | EKG ---
[facility] [address] [facility] [place], [place] [address] Signed Normal sinus rhythm Normal ECG No previous ECGs available Confirmed by Licha Melgar MD ([id number]) on 01/17/2024 11:28:52 AM Electronically Signed By: LICHA MELGAR MD 01/17/24 1129 PATIENT NAME: TERRELL BECERRIL SACHSE Electrocardiogram DATE OF : 47 PHYSICIAN: LICHA MELGAR MD REPORT #: [id number] REPORT IS CONFIDENTIAL AND NOT TO BE RELEASED WITHOUT AUTHORIZATION
== END 2024-01-17 09:12 | disposition home or self-care (01) ==
LOC: ED 06:54
PROVIDERS: Emergency Medicine
DX: I10 Essential (primary) hypertension (principal); R51.9 Headache, unspecified; R11.0 Nausea; R20.2 Paresthesia of skin; E11.9 Type 2 diabetes mellitus without complications; J45.909 Unspecified asthma, uncomplicated; I25.2 Old myocardial infarction; G47.30 Sleep apnea, unspecified; Z79.890 Hormone replacement therapy; Z79.899 Other long term (current) drug therapy; Z79.01 Long term (current) use of anticoagulants; Z79.82 Long term (current) use of aspirin; Z91.030 Bee allergy status; Z91.013 Allergy to seafood; Z88.8 Allergy status to other drugs, medicaments and biological substances; Z91.018 Allergy to other foods
CPT/HCPCS: 36415; 70450; 71045; 80053; 81001; 83690; 83735; 83880; 84484; 85025; 85610; 85730; 93005; 93010; 96374; 96375; 99285-25; J0360; J2405

== ENCOUNTER 2024-05-17 18:15 | Emergency (ER) | payer MEDICARE, OTHER ==
[~2024-05-17] VITALS: Ht 162.6 cm; Wt 69.9 kg
[2024-05-17] MEDS ORDERED: CALCIUM500 M1 PO (18:34)
[2024-05-17] MEDS ORDERED: DIGOXIN125 MCG PO (18:35)
[2024-05-17 18:39] LABS: EOSINOPHILS 2.9 % (0-6); HEMOGLOBIN 11.9 g/dL (12.0-18.0); MCH 29.8 (27-36); MCHC 33.1 g/dl (30-36); MCV 90.1 fl (81-99); MONOCYTES 7.3 % (0-12); NEUTROPHILS 62.8 % (39-80); PLATELET COUNT 218 K/uL (140-440); RDW 15.9 (10.5-15.0)
[2024-05-17 18:55] LABS: ALBUMIN 2.6 g/dL (3.4-5.0); ALBUMIN/GLOBULIN RATIO 0.72 (1.1-2.4); ANION GAP 10.2 (7-21); BILIRUBIN, TOTAL 0.5 ng/dL (0.2-1.0); BUN/CREATININE RATIO 11.7 (6.0-28.6); CALCIUM 8.2 mg/dL (8.5-10.1); CREATININE, SERUM 0.94 mg/dL (0.55-1.02); POTASSIUM 4.2 mmol/L (3.5-5.1); PROTEIN, TOTAL 6.2 g/dL (6.4-8.2)
[2024-05-17 21:44] VITALS: BP 163/62
--- NOTE | 2024-05-17 22:04 | EKG ---
[facility] [address] [facility] [place] [address] Signed Normal sinus rhythm Normal ECG When compared with ECG of 17-JAN-2024 07:11, Nonspecific T wave abnormality now evident in Anterior leads Confirmed by Gualberto Bueno MD () on 05/17/2024 10:04:30 PM Electronically Signed By: GUALBERTO BUENO MD 05/17/242203 PATIENT NAME: JONETERRELL REVILLO Electrocardiogram DATE OF : 47 PHYSICIAN: GUALBERTO BUENO MD REPORT #: [id number] REPORT IS CONFIDENTIAL AND NOT TO BE RELEASED WITHOUT AUTHORIZATION
== END 2024-05-17 21:47 | disposition home or self-care (01) ==
LOC: ED 18:15
PROVIDERS: Emergency Medicine
DX: S00.03XA Contusion of scalp, initial encounter (principal); M54.2 Cervicalgia; M25.551 Pain in right hip; I10 Essential (primary) hypertension; E11.9 Type 2 diabetes mellitus without complications; J45.909 Unspecified asthma, uncomplicated; I25.2 Old myocardial infarction; W18.30XA Fall on same level, unspecified, initial encounter; Z95.5 Presence of coronary angioplasty implant and graft; Z88.8 Allergy status to other drugs, medicaments and biological substances; Z91.030 Bee allergy status; Z91.013 Allergy to seafood; Z79.890 Hormone replacement therapy; Z79.899 Other long term (current) drug therapy; Z79.01 Long term (current) use of anticoagulants; Z79.85 Long-term (current) use of injectable non-insulin antidiabetic drugs; Z79.82 Long term (current) use of aspirin
CPT/HCPCS: 36415; 70450; 72125; 73502; 80053; 84484; 85025; 99285-25

== ENCOUNTER 2024-06-20 10:20 | Inpatient (IN) | payer MEDICARE, OTHER ==
[~2024-06-20] VITALS: Ht 162.6 cm; Wt 70.5 kg
[~2024-06-20 10:20] MED LIST changes: +CALCIUM CARBON600 MG PO; -CARVEDILOL12.5 MG PO; +DIGOXIN125 MCG PO; +FLONASE ALLERG9.9 ML NAS
[2024-06-20 10:56] LABS: BASOPHILS 0.5 % (0-2); EOSINOPHILS 1.9 % (0-6); HEMATOCRIT 35.1 % (35.0-50.0); HEMOGLOBIN 11.9 g/dL (12.0-18.0); LYMPHOCYTES 13.4 % (24-44); MCH 30.3 (27-36); MCHC 33.8 g/dl (30-36); MCV 89.6 fl (81-99); MONOCYTES 8.4 % (0-12); NEUTROPHILS 75.8 % (39-80); PLATELET COUNT 223 K/uL (140-440); RBC 3.92 M/ul (4.3-5.7)
[2024-06-20] MEDS ORDERED: ONDANSETRON 4 MG TAB ODT SL ONE (11:00)
[2024-06-20] MEDS ORDERED: ACETAMINOPHEN 325 MG TAB PO ONE (11:00)
[2024-06-20 11:22] LABS: ALBUMIN 2.9 g/dL (3.4-5.0); ALBUMIN/GLOBULIN RATIO 0.74 (1.1-2.4); ANION GAP 15.4 (7-21); BILIRUBIN, TOTAL 0.8 mg/dL (0.2-1.0); BUN/CREATININE RATIO 11.15 (6.0-28.6); CALCIUM 7.5 mg/dL (8.5-10.1); CREATININE, SERUM 4.57 mg/dL (0.55-1.02); MAGNESIUM 1.5 mg/dL (1.8-2.4); POTASSIUM 4.4 mmol/L (3.5-5.1); PROTEIN, TOTAL 6.8 g/dL (6.4-8.2)
[2024-06-20 11:27] LABS: CORONAVIRUS COVID-19 AG NEGATIVE (NEGATIVE); INFLUENZA A AG NEGATIVE (NEGATIVE); INFLUENZA B AG NEGATIVE (NEGATIVE)
[2024-06-20 11:37] LABS: DIGOXIN 3.3 ng/dL (0.9-2.0)
[2024-06-20] MEDS ORDERED: SODIUM CHLORIDE 0.9% 1,000 ML IV PRN (12:00)
[2024-06-20 12:16] LABS: BILIRUBIN, URINE NEGATIVE (negative); BLOOD/HGB, URINE NEGATIVE (Negative); KETONE, URINE NEGATIVE (Negative); LEUK ESTERASE, URINE NEGATIVE (negative); NITRITE, URINE NEGATIVE (negative); PH, URINE 5.5 (5-7)
[2024-06-20] MEDS ORDERED: MAGNESIUM SULFATE 2 GM/50 ML BAG IV ONE ×2 (12:30→20:15)
[2024-06-20 13:11] LABS: ANION GAP 16.8 (7-21); BUN/CREATININE RATIO 11.75 (6.0-28.6); CALCIUM 7.3 mg/dL (8.5-10.1); CREATININE, SERUM 4.34 mg/dL (0.55-1.02); POTASSIUM 4.8 mmol/L (3.5-5.1)
[2024-06-20] MEDS ORDERED: SODIUM CHLORIDE 0.45% 500 ML IV SCH (13:30)
[2024-06-20] MEDS ORDERED: SODIUM CHLORIDE 0.9% 500 ML IV PRN (13:45)
[2024-06-20] MEDS ORDERED: GLUCAGON,HUMAN RECOMBINANT 1 MG/ML VIAL SUB-Q PRN (15:00)
[2024-06-20] MEDS ORDERED: DEXTROSE 5% 1,000 ML IV PRN (15:00)
[2024-06-20] MEDS ORDERED: ACETAMINOPHEN 325 MG TAB PO PRN (15:00)
[2024-06-20] MEDS ORDERED: DEXTROSE 50% 50 ML SYR IV PRN ×2 (15:00)
[2024-06-20] MEDS ORDERED: IBLOOD GLUCOSE TEST STRIP 1 EA TEST XX PRN (15:00)
[2024-06-20] MEDS ORDERED: ondansetron HCL 4 MG/2 ML VIAL IV PRN (15:00)
[2024-06-20] MEDS ORDERED: PROCHLORPERAZINE EDISYLATE 10 MG/2 ML VIAL IV PRN (15:00)
--- NOTE | 2024-06-20 15:30 | NUR ---
PT REPORT RECIEVED FROM SOO GUZMAN. PT TRANSPORTED VIA STRETCHER ON RA. PT BELONGING AND 4WW BROUGHT TO PT ROOM. PT HAS NS 500ML BOLUS HANGING. PT BRIEF CHANGED AND PUREWICK IN PLACE. PT HAS NO CONCERNS AT THIS TIME AND CALL LIGHT IN REACH.
[2024-06-20 15:34] VITALS: BP 165/47
[2024-06-20] MEDS ORDERED: LACTATED RINGER'S 1,000 ML IV SCH (16:45)
--- NOTE | 2024-06-20 16:49 | NUR ---
PT LAYING IN BED ALER AND ORIENTED, PT HAS NO CONCERNS AT THIS TIME AND CALL LIGHT IN REACH.
[2024-06-20] MEDS ORDERED: IBLOOD GLUCOSE TEST STRIP 1 EA TEST VI SCH (17:00)
[2024-06-20] MEDS ORDERED: COREG6.25 MG PO (17:50)
[2024-06-20] MEDS ORDERED: LEVOTHYROXINE112 MCG PO (17:59)
[2024-06-20] MEDS ORDERED: PANTOPRAZOLE SO20 MG PO (18:01)
--- NOTE | 2024-06-20 18:09 | NUR ---
PT WAS HAVING DIFFICULTY EATING DINNER DUE TO IMPROPERLY FITTING PARTIAL DENTURE. PT TRAY WAS REMOVED AND PT WAS GIVEN A SOFTER FOOD FOR DINNER. PT DIET WAS ALSO CHANGED TO BETTER FIT HER CHEWING ABILITY.
[2024-06-20] MEDS ORDERED: TRIAMCINOLONE A15 G1 TOP (18:21)
[2024-06-20 18:34] VITALS: BP 160/53
[2024-06-20 18:45] VITALS: BP 160/53
--- NOTE | 2024-06-20 18:51 | NUR ---
IN TO DO VITALS AND I&O'S. PATIENT UP TO BATHROOM AND BACK TO BED, 1PA FWW. FAMILY IN ROOM. CALL LIGHT IN REACH. NO FURTHER NEEDS AT THIS TIME.
--- NOTE | 2024-06-20 18:56 | NUR ---
PT IN ROOM WITH HER SON, PT STATES " SHE DOESNT NEED ANYTHING RIGHT NOW" PT HAS CALL LIGHT IN REACH. PT SON SAID THAT THE PT DAUGHTER WAS GOING TO BRING IN THE PT HOME CPAP, HEARING AIDS, AND GLASSES.
--- NOTE | 2024-06-20 19:15 | NUR ---
REPORT RECEIVED FROM YURY RN. pt RESTING IN THE BED EATING. FAMILY IN RM. pt DENIES ANY OTHER NEEDS AT THIS TIME. BOARD UPDATED. CALL LIGHT WITHIN REACH. IV ASSESSED, WNL. IVF INFUSING PER ORDER.
[2024-06-20 19:19] LABS: ANION GAP 14.5 (7-21); BUN/CREATININE RATIO 11.72 (6.0-28.6); CALCIUM 7.1 mg/dL (8.5-10.1); CREATININE, SERUM 4.01 mg/dL (0.55-1.02); POTASSIUM 4.5 mmol/L (3.5-5.1)
--- NOTE | 2024-06-20 19:59 | EKG ---
[facility] [address] [facility] [place] [address] Signed Sinus bradycardia with 1st degree AV block ST \T\ T wave abnormality, consider inferior ischemia ST \T\ T wave abnormality, consider anterolateral ischemia Abnormal ECG When compared with ECG of 17-MAY-2024 18:50, T wave inversion more evident in Inferior leads T wave inversion now evident in Anterior leads Confirmed by Gualberto Bueno MD () on 06/20/2024 7:59:02 PM Electronically Signed By: GUALBERTO BUENO MD 06/20/241958 PATIENT NAME: TERRELL BECERRIL DECATUR Electrocardiogram DATE OF : 47 PHYSICIAN: GUALBERTO BUENO MD REPORT #: [id number] REPORT IS CONFIDENTIAL AND NOT TO BE RELEASED WITHOUT AUTHORIZATION
[2024-06-20 20:52] VITALS: BP 172/56
[2024-06-20 20:53] VITALS: BP 172/56
[2024-06-20] MEDS ORDERED: ATORVASTATIN 40 MG TAB PO SCH (21:00)
[2024-06-20] MEDS ORDERED: carvediloL 6.25 MG TAB PO SCH (21:00)
[2024-06-20] MEDS ORDERED: APIXABAN 5 MG TAB PO SCH (21:00)
[2024-06-20] MEDS ORDERED: GABAPENTIN 300 MG CAP PO SCH (21:00)
--- NOTE | 2024-06-20 21:00 | NUR ---
ASSESSMENT AND VITAL SIGNS DONE. BG CHECKED WITH A RESULTS OF 130. SCHEDULED MEDS ADMINISTERED. pt UP TO THE BR WITH THE BID MANAGER. pt 1PA WITH FWW. NEW PUREWICK PLACED. pt DENIES ANY OTHER NEEDS AT THIS TIME. CALL LIGHT WITHIN REACH. IV ASSESSED, WNL. RT IN RM TO SET UP CPAP MACHINE. pt HAS CPAP ON. WATER REFRESHED.
--- NOTE | 2024-06-20 23:05 | NUR ---
IV ALARMING. NEW IVF BAG HUNG. BED ALARM PLACED ON pt. pt WAS TRYING TO GET OUT OF BED SAYING SHE WAS HEARING A FIRE ALARM THIS RN EDUCATED pt ON THE SOUND OF THE IV ALARM. pt DENIES ANY OTHER NEEDS AT THIS TIME. CALL LIGHT WITHIN REACH.
[2024-06-21] VITALS (11 sets, daily range): BP systolic 132–176; BP diastolic 47–108
--- NOTE | 2024-06-21 02:19 | NUR ---
ASSESSMENT AND VITAL SIGNS DONE. pt UP TO THE BR. URINE IS YELLOW. 1PA TO THE BR. pt DENIES ANY OTHER NEEDS AT THIS TIME. CALL LIGHT WITHIN REACH.
--- NOTE | 2024-06-21 04:05 | NUR ---
pt IV ALARM BEEPING. IV BAG EMPTY, NEW BAG HUNG. IVF INFUSING PER ORDER. pt DENIES ANY OTHER NEEDS AT THIS TIME. CALL LIGHT WITHIN REACH.
[2024-06-21 05:36] LABS: BASOPHILS 0.9 % (0-2); EOSINOPHILS 2.6 % (0-6); HEMATOCRIT 32.6 % (35.0-50.0); HEMOGLOBIN 10.8 g/dL (12.0-18.0); LYMPHOCYTES 16.4 % (24-44); MCH 30.1 (27-36); MCHC 33.3 g/dl (30-36); MCV 90.4 fl (81-99); MONOCYTES 9.1 % (0-12); PLATELET COUNT 168 K/uL (140-440); RDW 16.3 (10.5-15.0)
--- NOTE | 2024-06-21 06:00 | NUR ---
pt UP TO THE BR. 1PA WITH FWW TO BR. pt DENIES ANY OTHER NEEDS AT THIS TIME. CALL LIGHT WITHIN REACH. VITAL SIGNS DONE. WATER REFRESHED.
[2024-06-21 06:03] LABS: ALBUMIN 2.1 g/dL (3.4-5.0); ALBUMIN/GLOBULIN RATIO 0.6 (1.1-2.4); ANION GAP 13.3 (7-21); BILIRUBIN, TOTAL 0.5 mg/dL (0.2-1.0); BUN/CREATININE RATIO 11.59 (6.0-28.6); CREATININE, SERUM 3.71 mg/dL (0.55-1.02); MAGNESIUM 2.6 mg/dL (1.8-2.4); PHOSPHORUS, INORGANIC 4.2 mg/dL (2.5-4.9); POTASSIUM 4.3 mmol/L (3.5-5.1); PROTEIN, TOTAL 5.6 g/dL (6.4-8.2)
[2024-06-21 06:05] LABS: DIGOXIN 3.3 ng/dL (0.9-2.0)
--- NOTE | 2024-06-21 06:35 | NUR ---
PHONE CALL FROM MD TELEPHONE ORDER FOR STAT HEAD CT. ORDER UPDATED, PHONE CALL TO IMAGING.
--- NOTE | 2024-06-21 07:20 | NUR ---
PT RESTING IN BED WITH EYES CLOSED AND RESPIRATIONS EVEN AND UNLABORED. CALL LIGHT WITHIN REACH. REPORT RECEIVED FROM SATNAM VANN
[2024-06-21] MEDS ORDERED: DULOXETINE HCL 60 MG CAP PO SCH (09:00)
[2024-06-21] MEDS ORDERED: carvediloL 6.25 MG TAB PO SCH (09:00)
[2024-06-21] MEDS ORDERED: ASPIRIN 81 MG TABEC PO SCH (09:00)
[2024-06-21] MEDS ORDERED: LEVOTHYROXINE SODIUM 112 MCG TAB PO SCH (09:00)
--- NOTE | 2024-06-21 09:05 | NUR ---
PT AMBULATED TO RESTROOM WITH ASSIST, PT TOLERATED WELL. PT BACK TO BED WITH CALL LIGHT WITHIN REACH.
--- NOTE | 2024-06-21 09:52 | NUR ---
UR CLINICAL REVIEW: 2MN KRISTEN, MEETS INPT FOR KELLY, DIG TOXICITY CREAT 4.57, NEED FOR IV FLUIDS, INPT MONITORING, DIGOXIN LEVEL 3.3 REQUIRING CARDIAC MONITORING. MEDICARE INPT 06/20/2024 @ 1452 ORDER MATCHES REG NO AUTH REQUIRED PER MEDICARE RULES DC TO HOME AT [facility], ASSISTED LIVING, WHEN MEDICALLY STABLE
--- NOTE | 2024-06-21 11:00 | NUR ---
PT DONE AMBULATING IN VU WITH PT/OT AND IS IN CHAIR WITH LEGS RECLINED AND CHAIR ALARM ON. PT DUONG MACKENZIE FOR HER WATER REQUESTED. CALL LIGHT WITHIN REACH.
--- NOTE | 2024-06-21 11:46 | NUR ---
ALERT AND ORIENTED IN RECLINER. PATIENT STATES SHE LIVES AT [facility]. SHE HAS A CANE, WALKER, CPAP MACHINE. SHE DOES NOT DRIVE. [employer] TRANSPORT ASSISTS WITH HER MEDICAL TRANSPORT FOR APPOINTMENTS. SHE STATES HER SON AND OTHER FAMILY MEMBERS ARE INVOLVED IN HER CARE. STATES SINCE SHE IS CURRENTLY SICK, SHE FEELS LIKE HER MIND IS "COMING AND GOING." INFORMED HER THAT STAFF WILL CONTINUE TO CHECK IN WITH HER DURING HER HOSPITAL STAY TO ENSURE HER NEEDS ARE MET AT DISCHARGE. DENIES OTHER NEEDS AT THIS TIME.
[2024-06-21] MEDS ORDERED: PHARMACY RENAL DOSE ADJUSTMENT 1 DOSE MISC PO SCH (12:00)
--- NOTE | 2024-06-21 13:49 | NUR ---
DR BUENO IN TO SEE PT AND DISCUSS POC.
--- NOTE | 2024-06-21 14:24 | NUR ---
PT RESTING IN BED, STATES SHE WANTS TO NAP. CALL LIGHT WITHIN REACH.
--- NOTE | 2024-06-21 16:57 | NUR ---
Patient is sitting up in their chair for dinner following bathroom assist. Call light and personal items within reach. Fresh ice water given.
--- NOTE | 2024-06-21 17:45 | NUR ---
PT SITTING UP IN CHAIR WITH LEGS ELEVATED WATCHING TV AND EATING DINNER. NO REQUESTS AT THIS TIME. CALL LIGHT WITHIN REACH AND CHAIR ALARM ON.
--- NOTE | 2024-06-21 18:00 | NUR ---
DR GALDAMEZ NOTIFIED OF PT'S BP, ORDER RECEIVED.
[2024-06-21] MEDS ORDERED: carvediloL 6.25 MG TAB PO ONE (18:15)
--- NOTE | 2024-06-21 19:15 | NUR ---
REPORT RECEIVED FROM PAVAN VANN. pt RESTING IN THE BED. BOARD UPDATED. pt DENIES ANY OTHER NEEDS AT THIS TIME. CALL LIGHT WITHIN REACH.
--- NOTE | 2024-06-21 19:46 | NUR ---
CALL LIGHT ANSWERED. PT NEEDED TO USE BATHROOM. PRIEST 1PA WITH FWW TO BATHROOM. PT VOIDED AND ASSISTED TO BED. PT STATES NO FURTHER NEEDS AT THIS TIME. CALL LIGHT WITHIN REACH AND BED ALARM ON.
--- NOTE | 2024-06-21 20:35 | NUR ---
CALL LIGHT ANSWERED. PRN TYLENOL ADMINISTERED PER REQUEST FOR 8/10 REPORTED SHOULDER, NECK, TAILBONE PAIN. SCHEDULED MEDICATIONS ADMINISTERED WITH APPLESAUCE. ICE WATER REFILLED. CALL LIGHT IN REACH. pt DENIES ADDITIONAL NEEDS.
--- NOTE | 2024-06-21 20:50 | NUR ---
ASSESSMENT AND VITAL SIGNS DONE. pt UP TO THE BR. pt RESTING IN THE BED. BG CHECKED WITH A RESULTS OF 174. WATER REFRESHED. pt DENIES ANY OTHER NEEDS AT THIS TIME. DISTILLED WATER PUT IN pt CPAP. pt DENIES ANY OTHER NEEDS AT THIS TIME. CALL LIGHT WITHIN REACH.
--- NOTE | 2024-06-21 23:00 | NUR ---
pt RESTING IN THE BED. IV ASSESSED, WNL. pt STATES SHE'LL PUT HER CPAP ON WHEN SHES READY FOR BED. pt DENIES ANY OTHER NEEDS AT THIS TIME CALL LIGHT WITHIN REACH.
--- NOTE | 2024-06-21 23:42 | NUR ---
TERRELL HAS A HOME AUTO CPAP 7-10
[2024-06-22] VITALS (11 sets, daily range): BP systolic 138–189; BP diastolic 45–83
--- NOTE | 2024-06-22 00:32 | NUR ---
CALL LIGHT ANSWERED. PT NEEDED TO USE BATHROOM. SOA ARCHITECT 1PA WITH FWW TO BATHROOM. PT VOIDED AND ASSISTED BACK TO BED. PT STATES STATES NO FURTHER NEEDS AT THIS TIME. CALL LIGHT WITHIN REACH AND BED ALARM ON.
--- NOTE | 2024-06-22 02:01 | NUR ---
LAND SALES AGENT OBTAINED VITALS AND I&O. PT STATES NO NEEDS AT THIS TIME. CALL LIGHT WITHIN REACH AND BED ALARM ON.
--- NOTE | 2024-06-22 02:39 | NUR ---
pt RESTING THE BED WITH EYES CLOSED. RR EVEN AND UNLABORED. CALL LIGHT WITHIN REACH.
--- NOTE | 2024-06-22 03:51 | NUR ---
BED ALARM ANSWERED. PT NEEDED TO USE BATHROOM. EDITOR CONTINUITY AND SCRIPT 1PA WITH FWW TO BATHROOM. PT VOIDED AND ASSISTED BACK TO BED. OUTPUT MEASURED. ICE WATER REFILLED. PT STATES NO FURTHER NEEDS AT THIS TIME. CALL LIGHT WITHIN REACH AND BED ALARM ON.
--- NOTE | 2024-06-22 04:06 | NUR ---
pt CALLED TO HELP HAVE HER CHANNEL CHANGED. pt HAS HER CPAP ON. pt DENIES ANY OTHER NEEDS AT THIS TIME. CALL LIGHT WITHIN REACH.
--- NOTE | 2024-06-22 05:27 | NUR ---
BED ALARM ANSWERED. PT NEEDED TO USE BATHROOM. TELEPHONE STATION INSTALLER 1PA TO BATHROOM WITH FWW. PT VOIDED AND ASSISTED BACK TO BED. TELEPHONE STATION INSTALLER AND RN OBTAINED VITALS AND I&O. PT STATES NO FURTHER NEEDS AT THIS TIME. CALL LIGHT WITHIN REACH AND BED ALARM ON.
[2024-06-22 06:07] LABS: BASOPHILS 0.7 % (0-2); EOSINOPHILS 3.6 % (0-6); HEMATOCRIT 33.5 % (35.0-50.0); LYMPHOCYTES 18.5 % (24-44); MCH 29.7 (27-36); MCHC 32.9 g/dl (30-36); MCV 90.1 fl (81-99); MONOCYTES 10.2 % (0-12); PLATELET COUNT 152 K/uL (140-440); RBC 3.71 M/ul (4.3-5.7); RDW 16.3 (10.5-15.0)
--- NOTE | 2024-06-22 06:15 | NUR ---
pt UP TO THE BR. 1PA WITH FWW. IV ASSESSED, WNL. pt DENIES ANY OTHER NEEDS AT THIS TIME. CALL LIGHT WITHIN REACH.
[2024-06-22 06:23] LABS: ALBUMIN 2.3 g/dL (3.4-5.0); ALBUMIN/GLOBULIN RATIO 0.64 (1.1-2.4); ANION GAP 12.3 (7-21); BILIRUBIN, TOTAL 0.6 mg/dL (0.2-1.0); BUN/CREATININE RATIO 11.98 (6.0-28.6); CALCIUM 7.3 mg/dL (8.5-10.1); CREATININE, SERUM 2.92 mg/dL (0.55-1.02); POTASSIUM 4.3 mmol/L (3.5-5.1); PROTEIN, TOTAL 5.9 g/dL (6.4-8.2)
--- NOTE | 2024-06-22 07:35 | NUR ---
REPORT RECEIVED FROM DIRECTOR OF RETAIL ANALYTICS RN. PATIENT UP TO BATHROOM WITH ASSISTANCE FROM BULB GROWER STAFF. IV SITE WNL IVF INFUSING WNL. BULB GROWER STAFF REMAINS WITH PATIENT.
--- NOTE | 2024-06-22 08:45 | NUR ---
PATIENT RESTING IN RECLINER EATING BREAKFAST. PATIENT REPORTS SHE FEELS HER SWALLOWING HAS BEEN DIFFICULT FOR A FEW WEEKS. PATIENT NOTED TO HAVE EGGS AND TOAST THIS AM AND REPORTS HAVING A DIFFICULT TIME SWALLOWING HER TOAST. AM MEDICATIONS ADMINSTERED WITH APPLESAUCE. VAA. PATIENT IS ALERT AND ORIENTED X 3. LUNGS CTA. TELE IN PLACE SINUS MEERA HEART SOUNDS REGULAR. DENIES ANY PAIN OR DISCOMFORT AT THIS TIME. BOWEL TONES ACITVE X 4 QUADRANTS. PULSES PALPABLE THROUGHOUT. IV SITE REMAINS PATENT AND WNL. IVF INFUSING WITH NO ISSUES AT THIS TIME. PATIENT DENIES ANY FURTHER NEEDS AT THIS TIME. CALL LIGHT WITHIN REACH.
[2024-06-22] MEDS ORDERED: carvediloL 6.25 MG TAB PO SCH ×2 (09:00→21:00)
--- NOTE | 2024-06-22 09:40 | NUR ---
SPOKE WITH ERIKA AT [facility]. STATES SHE WILL BE IN FACILITY TO SEE PATIENT THIS AFTERNOON. STATES ASSESSMENT TODAY WILL ENSURE PATIENT CAN RETURN IF MEDICALLY CLEARED OVER THE WEEKEND. SPOKE WITH TERRELL. SHE HAS NO CM NEEDS. SHE IS PLANNING TO RETURN TO [facility]. SHE FEELS SHE HER MIND IS CLEARER TODAY AND STATES SHE IS GOING TO WRITE SOME THINGS DOWN THAT SHE NEEDS TO REMEMBER.
--- NOTE | 2024-06-22 10:00 | NUR ---
SBA to bathroom. Patient returned to sit in their chair. Requested a pen and some paper to write on. Call light and personal items within reach. Case management entered the room.
--- NOTE | 2024-06-22 10:11 | NUR ---
VISITED DURING SPIRITUAL CARE ROUNDS. PT SITTING UP IN CHAIR WRITING LETTER, TALKED OF EXTENSIVE FAMILY SUPPORT, INTEGRATED [employer] AND PRAYER PRACTICES; NO IMMEDIATE NEEDS. SHOOK MACHINE OPERATOR PROVIDED SUPPORTIVE PRESENCE, FACILITATED LIFE REVIEW, EXPLORED SPIRITUAL PRACTICES, GAVE ANTICIPATORY GUIDANCE, PROVIDED PRAYER. PT EXPRESSED GRATITUDE, [employer] SOURCE OF STRENGTH.
--- NOTE | 2024-06-22 11:45 | NUR ---
MD IN ROOM WITH PATIENT. SWALLOWING CONCERNS ADDRESSED WITH MD. NEW VERBAL ORDERS RECEIVED FROM EDDIE BARNETT BY . ORDERS ENTERED. PATIENT WITH FAMILY IN ROOM AT THIS TIME. NO FURTHER NEEDS. CALL LIGHT WITHIN REACH.
--- NOTE | 2024-06-22 12:46 | NUR ---
PATIENT SITTING ON EDGE OF BED EATING LUNCH. NO NEEDS AT THIS TIME. CALL LIGHT WITHIN REACH.
--- NOTE | 2024-06-22 13:20 | NUR ---
PATIENT ASSISTED TO BATHROOM WITH 1 PA ASSIST AND FWW. TOLLERATED AMBULATING WELL. VOID IN TOILET. BACK INTO BED. REQUESTING TEA. TEA GIVEN. DENIES ANY FURTHER NEEDS. CALL LIGHT WITHIN REACH.
--- NOTE | 2024-06-22 14:40 | NUR ---
IV ALARMING. OCCLUSION TO PATIENT SIDE. ARM REPOSITIONED. OCCLUSION RESLOVED. IV SITE REMAINS WNL. PATIENT ASSISTED TO BATHROOM WITH FWW. DENIES ANY FURTHER NEEDS AT THIS TIME. CALL LIGHT WITHIN REACH.
--- NOTE | 2024-06-22 15:10 | NUR ---
MARIA ANTONIA HALL STAFF IN ROOM WITH PATIENT AT THIS TIME.
--- NOTE | 2024-06-22 16:43 | NUR ---
PT AMBULATES WITH FWW AND SBA TO RESTROOM AND VOIDS. PROVIDES OWN MALINDA-CARE. PT STANDS AT SINK TO BRUSH HER TEETH AND COMB HER HAIR INDEPENDENTLY. PT AMBULATES TO RECLINER AT THIS TIME. NO OTHER REQUESTS, CALL LIGHT IN REACH.
--- NOTE | 2024-06-22 17:00 | NUR ---
SOCIAL SERVICE WORKER STAFF IN ROOM WITH PATIENT ASSISTING PATIENT WITH DINNER SET UP AT THIS TIME.
--- NOTE | 2024-06-22 18:00 | NUR ---
VITALS OBTAINED. PATIENT ASSISTED FROM RECLINER TO BATHROOM THEN BACK INTO BED. DENIES ANY NEEDS AT THIS TIME. IV SITE REMAINS PATENT AND WNL. FLUIDS CONTINUE TO INFUSE WNL. DENIES ANY FURTHER NEEDS. CALL LIGHT WITHIN REACH.
--- NOTE | 2024-06-22 19:20 | NUR ---
PATIENT RESTING COMFORTABLY IN BED, WATCHING TV. DENIES ANY NEEDS AT THIS TIME. REPORT RECEIVED FROM DAY SHIFT RN. CALL LIGHT IN REACH.
--- NOTE | 2024-06-22 20:01 | NUR ---
ASSESSMENT COMPLETED, PATIENT AMBULATORY TO RESTROOM WITH MINIMAL X1 ASSIST AND USE OF 4 WHEEL WALKER. VS OBTAINED AND RECORDED. SCHEDULED MEDICATIONS ADMINISTERED EARLY PER PATIENT REQUEST. PATIENT DENIES FURTHER NEEDS. CALL LIGHT IN REACH, BED ALARM ON.
--- NOTE | 2024-06-22 20:29 | NUR ---
TERRELL IS CURRENTLY AWAKE ON ROOM AIR. SHE ASKED ABOUT HER CPAP SETTINGS. RT TOLD HER THAT SHE HAS AN AUTO CPAP 7-10. WATER CHAMBER IS FULL TO APPROPRIATE FILL LINE ON HER HOME CPAP UNIT.
--- NOTE | 2024-06-22 23:34 | NUR ---
PATIENT RESTING WITH EYES CLOSED, RESPIRATIONS EVEN AND UNLABORED. CPAP IN PLACE. NO NEEDS IDENTIFIED, CALL LIGHT IN REACH.
--- NOTE | 2024-06-22 23:50 | NUR ---
IN ROOM TO ANSWER PATIENT CALL LIGHT, PATIENT REQUESTED TO USE RESTROOM. AMBULATORY TO RESTROOM WITH MINIMAL SBA AND USE OF WALKER. BACK TO BED WITHOUT DIFFICULTY. BED ALARM ON. CALL LIGHT IN REACH
[2024-06-23] VITALS (11 sets, daily range): BP systolic 148–178; BP diastolic 50–73
--- NOTE | 2024-06-23 02:04 | NUR ---
VS OBTAINED AND DOCUMENTED. AMBULATORY TO RESTROOM WITH X1 SBA AND USE OF WALKER. BACK TO BED WITHOUT DIFFICULTY. IV FLUIDS CONTINUING TO INFUSE PER ORDER. PATIENT DENIES NEEDS, CALL LIGHT IN REACH.
--- NOTE | 2024-06-23 03:19 | NUR ---
TELE MONITOR SHOWING ELECTRICAL INTERFERENCE. NEW TELE MONITOR REPLACED ON PATIENT WELL NEW LEAD STICKERS. PATIENT CONTINUES TO REST WITH EYES CLOSED, RESPIRATIONS EVEN AND UNLABORED. CALL LIGHT IN REACH.
--- NOTE | 2024-06-23 03:49 | NUR ---
ASSISTED TO BR W/ CGA AND 4WW. VOIDS WNL. DISPOSIBLE BRIEF IN PLACE. CALL LIGHT WITHIN REACH. BED ALARM IN PLACE FOR SAFETY.
--- NOTE | 2024-06-23 04:33 | NUR ---
TERRELL IS ASLEEP ON HER HOME AUTO CPAP 7-10, W/O AN OXYGEN BLEED IN.
[2024-06-23 05:30] LABS: BASOPHILS 0.3 % (0-2); EOSINOPHILS 2.4 % (0-6); HEMATOCRIT 33.3 % (35.0-50.0); HEMOGLOBIN 11.2 g/dL (12.0-18.0); MCH 30.1 (27-36); MCHC 33.5 g/dl (30-36); MCV 89.8 fl (81-99); MONOCYTES 9.5 % (0-12); NEUTROPHILS 72.8 % (39-80); PLATELET COUNT 171 K/uL (140-440); RBC 3.71 M/ul (4.3-5.7); RDW 16.6 (10.5-15.0)
[2024-06-23 05:47] LABS: ALBUMIN 2.3 g/dL (3.4-5.0); ALBUMIN/GLOBULIN RATIO 0.64 (1.1-2.4); ANION GAP 11.4 (7-21); BILIRUBIN, TOTAL 0.6 mg/dL (0.2-1.0); BUN/CREATININE RATIO 12.5 (6.0-28.6); CALCIUM 7.4 mg/dL (8.5-10.1); CREATININE, SERUM 2.4 mg/dL (0.55-1.02); POTASSIUM 4.4 mmol/L (3.5-5.1); PROTEIN, TOTAL 5.9 g/dL (6.4-8.2)
[2024-06-23 05:48] LABS: DIGOXIN 1.9 ng/dL (0.9-2.0)
--- NOTE | 2024-06-23 06:18 | NUR ---
VS OBTAINED AND RECORDED, ASSESSMENT COMPLETE. FRESH WATER PROVIDED. PATIENT DENIES FURTHER NEEDS, CALL LIGHT IN REACH.
--- NOTE | 2024-06-23 07:22 | NUR ---
PATIENT IN CHAIR AT THIS TIME. DIRECTOR ONLINE MARKETING ASSISTED PATIENT INTO BATHROOM AND THEN TO CHAIR. CALL LIGHT WITHIN REACH, NO FURTHER NEEDS AT THIS TIME.
--- NOTE | 2024-06-23 07:30 | NUR ---
REPORT RECEIVED FROM DIRECTOR OF ANESTHESIA SERVICES RN. PATIENT RESTING IN RECLINER. IV FLUIDS INFUSING WITH NO ISSUE OR CONCERNS. DENIES ANY NEEDS AT THIS TIME. CALL LIGHT WITHIN REACH.
--- NOTE | 2024-06-23 08:50 | NUR ---
PATIENT RESTING IN RECLINER EATING BREAKFAST. LUNGS CTA, HEART SOUNDS REGULAR. BOWEL TONES ACTIVE X 4 QUADRATS. ALERT AND ORIENTED X 4. PATIENT DENIES ANY PAIN OR DISCOMFORT. PATIENT REPORTS SHE IS CONTINUING TO HAVE DIFFICULTY SWALLOWING. RN IN ROOM DURING BREAKFAST. NO NOTED COUGHING. PATIENT REPORTS SHE HAS AN ILL FITTING PATRIAL WITH FOLLOW UP APPOINTMENT TO ADDRESS PARTIAL. PATIENT REPORTS SHE DOES TAKE CARE TO CHEW HER FOOD THROUGHLY SO SHE CAN SWALLOW.
--- NOTE | 2024-06-23 09:45 | NUR ---
CALL LIGHT ANSWERED. PATIENT HAD AN EPISODE OF LOOSE INCONTENT STOOL. PATIENT ASSISTED TO BATHROOM. NEW BREIF. ASSISTED BACK TO BED. DENIES ANY FURTHER NEEDS CALL LIGHT WITHIN REACH.
--- NOTE | 2024-06-23 10:09 | NUR ---
Patient is sitting up in their chair. SOO Pinon in the room.
--- NOTE | 2024-06-23 10:20 | NUR ---
IV FLUIDS STOPPED PER MD ORDERS. PATIENT EDUCATED ON THE IMPORTANCE OF DRINKING PLENTY OF FLUIDS. NO FURTHER NEEDS CALL LIGHT WITHIN REACH.
--- NOTE | 2024-06-23 10:39 | NUR ---
PATIENT UP WALKING HALLS WITH PT AT THIS TIME.
--- NOTE | 2024-06-23 10:55 | NUR ---
IMM LETTER COMPLETED AT 1050. SIGNED AND COPY GIVEN. PATIENT WAIVED 4 HOUR WAITING PERIOD.
--- NOTE | 2024-06-23 11:40 | NUR ---
PATIENT RESTING IN BED AT THIS TIME. DENIES ANY NEEDS. CALL LIGHT WITHIN REACH.
--- NOTE | 2024-06-23 12:39 | NUR ---
DEBLOCKER STAFF IN ROOM WITH PATIENT ASSISTING TO BATHROOM.
--- NOTE | 2024-06-23 13:45 | NUR ---
PATIENT ASSISTED TO BATHROOM FROM RECLINER. VOID IN TOILET. ASSISTED TO BED. DENIES ANY FURTHER NEEDS. CALL LIGHT WITHIN REACH.
[2024-06-23] MEDS ORDERED: AMLODIPINE BESYLATE 5 MG TAB PO SCH (14:36)
--- NOTE | 2024-06-23 14:44 | NUR ---
BP ELEVATED. RECHECKED WITH MANUAL CUFF BP REMAINS ELEVATED. MD NOTIFIED. NEW ORDERS RECEIVED SEE JUN. MEDICATIONS ADMINSTERED. PATIENT WITH NO FURTHER NEEDS. CALL LIGHT WITHIN REACH.
[2024-06-23] MEDS ORDERED: LABETALOL HCL 20 MG/4 ML VIAL IV PRN (14:45)
--- NOTE | 2024-06-23 15:49 | NUR ---
PATIENT RESTING IN BED WITH EYES CLOSED. RESPIRATIONS EVEN AND UNLABORED. CALL LIGHT WITHIN REACH.
[2024-06-23 17:18] LABS: ANION GAP 11.1 (7-21); BUN/CREATININE RATIO 12.78 (6.0-28.6); CALCIUM 7.4 mg/dL (8.5-10.1); CREATININE, SERUM 2.19 mg/dL (0.55-1.02); POTASSIUM 4.1 mmol/L (3.5-5.1)
--- NOTE | 2024-06-23 17:32 | NUR ---
CALL LIGHT ANSWERED. PATIENT ASSISTED FROM BATHROOM TO RECLINER. PATIENT EATING DINNER. NO FURTHER NEEDS. CALL LIGHT WITHIN REACH.
--- NOTE | 2024-06-23 17:54 | NUR ---
PATIENT IN CHAIR AT THIS TIME. KAIAKO KURA TUARUA CHARTED VITALS AND I7O'S. CALL LIGHT WITHIN REACH, NO FURTHER NEEDS AT THIS TIME.
--- NOTE | 2024-06-23 18:43 | NUR ---
MD INFORMED OF [facility] RESULTS, NO NEW ORDERS. PLAN CURRENTLY TO DC TOMORROW. PRIMARY RN NOTIFIED.
--- NOTE | 2024-06-23 19:38 | NUR ---
RECEIVED REPORT FROM SOO HEREDIA. PT RESTING IN BED, REQUESTS BR. WILVER JACKSON IN TO ASSIST TO BR W/ 4WW. NO FURTHER NEEDS AT THIS TIME.
--- NOTE | 2024-06-23 19:40 | NUR ---
PT NEEDED TO USE BATHROOM. TRIMMING CUTTER MACHINE 1PA WITH FWW TO BATHROOM. PT VOIDED AND ASSISTED WITH CLEAN BRIEFS. PT ASSISTED BACK TO BED. PT STATES NO FURTHER NEEDS AT THIS TIME. CALL LIGHT WITHIN REACH.
--- NOTE | 2024-06-23 20:30 | NUR ---
PT RESTING IN BED. VSS. DENIES PAIN. ORIENTED X 4 BUT FORGETFUL. BED ALARM IN PLACE FOR SAFETY. LSC. HAS OWN C-PAP AT BEDSIDE, PT IS INDEPENDENT W/ USE. HRR. BTA. LBM TODAY, INC X 1. PT HAS URINARY URGENCY AND FREQUENCY, DISPOSIBLE BRIEF IN PLACE. RAC SL W/ DRIED BLOOD UNDER DRSG. AMBULATES TO BR FREQUENTLY W/ SBA AND 4WW. TOOK MEDS FLOATED IN APPLESAUCE, NO SWALLOWING DIFFICULTY NOTED. CALL LIGHT WITHIN REACH.
--- NOTE | 2024-06-23 20:43 | NUR ---
BARK PEELER AND RN OBTAINED VITALS, I&O AND BLOOD SUGAR. PT UP TO BATHROOM TO VOID AND IS NOW BACK IN BED. PT STATES NO FURTHER NEEDS AT THIS TIME. CALL LIGHT WITHIN REACH.
--- NOTE | 2024-06-23 21:00 | NUR ---
CPAP HUMIDIFIER FILLED. CPAP AT BEDSIDE READY FOR USE.
--- NOTE | 2024-06-23 22:00 | NUR ---
PT APPEARS ASLEEP. BED ALARM IN PLACE.
--- NOTE | 2024-06-23 23:00 | NUR ---
CALL LIGHT ANSWERED. PT NEEDED TO USE BATHROOM. SUPER[employer]OR [employer] 1PA WITH FWW TO BATHROOM. PT VOIDED AND ASSISTED BACK TO BED. PT STATES NO FURTHER NEEDS AT THIS TIME. CALL LIGHT WITHIN REACH AND BED ALARM ON.
[2024-06-24] VITALS (10 sets, daily range): BP systolic 143–161; BP diastolic 53–91
--- NOTE | 2024-06-24 01:07 | NUR ---
PT AWAKE, JUST USED BR. PT ENC TO APPLY C-PAP MASK BEFORE SHE FALLS ASLEEP WITHOUT IT.
--- NOTE | 2024-06-24 01:17 | NUR ---
CALL LIGHT ANSWERED. PT NEEDED TO USE BATHROOM. [employer]ONGE MAKING MACHINE OPERATOR 1PA TO BATHROOM. PT VOIDED AND ASSISTED BACK TO BED. PT STATES NO FURTHER NEEDS AT THIS TIME. CALL LIGHT WITHIN REACH AND BED ALARM ON,
--- NOTE | 2024-06-24 01:25 | NUR ---
PT C/O PAIN TO RIGHT GREAT TOE, 8/10. RIGHT GREAT TOE JOINT REDDENED AND TENDER. PRN TYLENOL ADMINISTERED. WILL PASS ON TO DAYSHIFT FOR MD TO ASSESS.
--- NOTE | 2024-06-24 03:47 | NUR ---
bed alarm going off, pt reports need to void. pt sba with fww, steady on feet, incont of urine, voided 400mls. tiffanie care done and clean attends in place. pt back in bed, alarm resumed and call light in reach. pt denies additional needs or concerns.
--- NOTE | 2024-06-24 05:00 | NUR ---
PT SLEEPING SOUNDLY. C-PAP IN PLACE.
[2024-06-24 05:37] LABS: ANION GAP 10.1 (7-21); BUN/CREATININE RATIO 12.26 (6.0-28.6); CALCIUM 7.2 mg/dL (8.5-10.1); CREATININE, SERUM 2.12 mg/dL (0.55-1.02); MAGNESIUM 1.3 mg/dL (1.8-2.4); POTASSIUM 4.1 mmol/L (3.5-5.1)
--- NOTE | 2024-06-24 07:20 | NUR ---
REPORT REC'D FROM SOO RUGGIERO. PT ASSISTED OOB X2 MIN ASSIST TO BRP WITH 4WW. PT INSTRUCTED TO CALL FOR ASSISTANCE WHEN FINISHED TOILETING. VERBALIZED UNDERSTANDING. CALL CORD IN REACH.
[2024-06-24] MEDS ORDERED: MAGNESIUM SULFATE 2 GM/50 ML BAG IV ONE ×2 (07:45→09:45)
--- NOTE | 2024-06-24 09:02 | NUR ---
PATIENT IN CHAIR AT THIS TIME. TRANSPORTATION SECURITY OFFICER CHARTED BLOOD SUGAR AND HOURLY ROUNDS. CALL LIGHT WITHIN REACH, NO FURHTER NEEDS AT THIS TIME.
--- NOTE | 2024-06-24 09:55 | NUR ---
MAIDAT IN CHAIR AT THIS TIME. HOIST WORKER ASSISTED PATIENT BACK TO CHAIR FROM BATHROOM. CALL LIGHT WITHIN REACH, NO FURTHER NEEDS AT THIS TIME.
[2024-06-24] MEDS ORDERED: predniSONE 20 MG TAB PO SCH (10:46)
--- NOTE | 2024-06-24 12:48 | NUR ---
PATIENT IN CHAIR AT THIS TIME. STORAGE MANAGER CHARTED BLOODSUGAR AND HOURLY ROUNDS. CALL LIGHT WITHIN REACH, NO FURTHER NEEDS AT THIS TIME.
--- NOTE | 2024-06-24 13:33 | NUR ---
PT HAS BEEN UP IN CHAIR T/O SHIFT. CALLS APPROPRIATELY FOR ASSISTANCE TO BRP WITH WALKER. PT TOLERATING PO DIET. CALL SAUCEDO IN REACH, RECLINER LOCKED.
--- NOTE | 2024-06-24 14:55 | NUR ---
PT REMAINS SITTING IN CHAIR COMPOSING LETTER. DISCUSSED WITH PATIENT DR. GALDAMEZ WOULD LIKE TO KEEP HER OVERNIGHT TO MONITOR HER RENAL FUNCTION AND ELECTROLYTES HAVING JUST STARTED PREDNISONE FOR GOUT. PT VERBALIZED UNDERSTANDING AND WILL NOTIFY HER SON.
[2024-06-24] MEDS ORDERED: glipiZIDE 5 MG TAB PO SCH ×2 (18:16→21:00)
--- NOTE | 2024-06-24 18:30 | NUR ---
PATIENT IN BED AT THIS TIME. BUSINESS SYSTEMS ANALYST ASSISTED PATIENT TO BATHROOM AND THEN BACK TO BED. BUSINESS SYSTEMS ANALYST CHARTED VITALS AND I&O'S. CALL LIGHT WITHIN REACH, NO FURTHER NEEDS AT THIS TIME.
--- NOTE | 2024-06-24 18:39 | NUR ---
PT PLEASANT AND COOPERATIVE WITH CARE T/O SHIFT. PT OOB TO CHAIR TOLERATED. AMBULATING TO BRP WITH 4WW CGA, VOIDING WITHOUT ISSUE. IV TO R AC PATENT. PT REMAINS ALERT AND ORIENTED, HOWEVER IS FORGETFUL. ECCHYMOTIC AREAS TO ARMS FROM LAB DRAWS. PT STARTED ON PREDNISONE FOR R GREAT TOE GOUT. CALL SAUCEDO IN REACH, BED IN LOW POSITION AND LOCKED, SIDERAILS UP X3. USING CALL SAUCEDO APPROPRIATELY.
--- NOTE | 2024-06-24 20:10 | NUR ---
RECEIVED REPORT FROM SOO GAMING. PT RESTING IN BED. WARM BLANKET PROVIDED PER REQUEST. BED ALARM IN PLACE FOR SAFETY.
--- NOTE | 2024-06-24 20:30 | NUR ---
PT RESTING COMFORTABLY IN BED. VSS. BED ALARM IN PLACE FOR SAFETY. O X 4 BUT FORGETFUL. REPORTS 7/10 PAIN TO RIGHT GREAT TOE JOINT-ACCEPTED OFFER OF PRN TYLENOL FOR HS. LSC. C-PAP AT BEDSIDE-PT IND W/ USE. HRR W/ MURMUR. BTA. LBM TODAY. DISPOSIBLE BRIEF IN PLACE FOR URINARY URGENCY AND FREQUENCY. RAC IV SL'S-DRSG W/ DRIED BLOOD. ASSISTED TO BR W/ SBA AND 4WW. VOIDS WNL. RIGHT GREAT TOE JOINT BRIGHT RED, TENDER AND WARM. FRESH ICE WATER PROVIDED. CALL LIGHT WITHIN REACH.
--- NOTE | 2024-06-24 20:50 | NUR ---
CPAP HUMIDIFIER FULL AND AT BEDSIDE READY FOR USE.
--- NOTE | 2024-06-24 22:15 | NUR ---
PT AWAKE, WATCHING A MOVIE. DENIES NEEDS.
--- NOTE | 2024-06-25 00:08 | NUR ---
PT SLEPEING SOUNDLY. C-PAP IN PLACE. BED ALARM ON FOR SAFETY.
--- NOTE | 2024-06-25 01:36 | NUR ---
RESTING ON CPAP.
--- NOTE | 2024-06-25 01:54 | NUR ---
SLEEPING SOUNDLY. APPEARS COMFORTABLE.
--- NOTE | 2024-06-25 04:00 | NUR ---
PT SLEEPING SOUNDLY ON LEFT SIDE. C-PAP IN PLACE. BED ALARM FOR SAFETY.
[2024-06-25 05:50] LABS: ANION GAP 10.1 (7-21); BUN/CREATININE RATIO 12.18 (6.0-28.6); CALCIUM 7.5 mg/dL (8.5-10.1); CREATININE, SERUM 1.97 mg/dL (0.55-1.02); MAGNESIUM 1.7 mg/dL (1.8-2.4); POTASSIUM 4.1 mmol/L (3.5-5.1)
[2024-06-25 05:53] VITALS: BP 150/48
--- NOTE | 2024-06-25 06:00 | NUR ---
PT ASSISTED TO BR BY AUDITOR IN CHARGE. NO NEEDS AT THIS TIME.
[2024-06-25 06:01] VITALS: BP 150/48
--- NOTE | 2024-06-25 07:40 | NUR ---
REPORT REC'D FROM MONIK VANN. PT PLANNED FOR DISCHARGE TODAY.
[2024-06-25] MEDS ORDERED: MAGNESIUM OXIDE 400 MG TABLET PO ONE (08:00)
--- NOTE | 2024-06-25 08:43 | NUR ---
Board has been updated and call light has been placed within reach
[2024-06-25 10:08] VITALS: BP 107/85
[2024-06-25] MEDS ORDERED: PREDNISONE20 MG PO (10:15)
[2024-06-25 11:40] VITALS: BP 135/60
[2024-06-25 12:11] VITALS: BP 148/58
== END 2024-06-25 12:17 | disposition home or self-care (01) | DRG 684 ==
LOC: ED 10:20 → MS 14:59
PROVIDERS: Emergency Medicine; Student in an Organized Health Care Education/Training Program; ADMIT Family Medicine; ATTEND Family Medicine
DX: N17.9 Acute kidney failure, unspecified (principal); E11.9 Type 2 diabetes mellitus without complications; J45.909 Unspecified asthma, uncomplicated; M19.90 Unspecified osteoarthritis, unspecified site; M79.7 Fibromyalgia; G47.30 Sleep apnea, unspecified; Z96.651 Presence of right artificial knee joint; E03.9 Hypothyroidism, unspecified; K21.9 Gastro-esophageal reflux disease without esophagitis; E78.5 Hyperlipidemia, unspecified; I48.91 Unspecified atrial fibrillation; I11.0 Hypertensive heart disease with heart failure; I50.9 Heart failure, unspecified; I44.0 Atrioventricular block, first degree; E83.51 Hypocalcemia; D64.9 Anemia, unspecified; E83.42 Hypomagnesemia; T46.0X5A Adverse effect of cardiac-stimulant glycosides and drugs of similar action, initial encounter; R53.1 Weakness; R11.0 Nausea; R19.7 Diarrhea, unspecified; M10.9 Gout, unspecified; L53.8 Other specified erythematous conditions; Z90.49 Acquired absence of other specified parts of digestive tract; Z98.84 Bariatric surgery status; Z90.89 Acquired absence of other organs; I25.2 Old myocardial infarction; Z95.5 Presence of coronary angioplasty implant and graft; Z86.73 Personal history of transient ischemic attack (TIA), and cerebral infarction without residual deficits; Z90.710 Acquired absence of both cervix and uterus; Z91.013 Allergy to seafood; Z91.030 Bee allergy status; Z88.8 Allergy status to other drugs, medicaments and biological substances; Z79.890 Hormone replacement therapy; Z79.899 Other long term (current) drug therapy; Z91.018 Allergy to other foods; Z79.891 Long term (current) use of opiate analgesic; Z79.01 Long term (current) use of anticoagulants; Z79.82 Long term (current) use of aspirin; Z99.89 Dependence on other enabling machines and devices
CPT/HCPCS: 36415; 71045; 76770; 80048; 80053; 80162; 81003; 83605; 83690; 83735; 83880; 84100; 84484; 84550; 85025; 93005; 93010; 97161; 97165; 97535; A9270; J3475; J7030; J7040; J7121; J7512

== ENCOUNTER 2024-06-30 20:14 | Emergency (ER) | payer MEDICARE, OTHER ==
[~2024-06-30] VITALS: Ht 162.6 cm; Wt 70.5 kg
[~2024-06-30 20:14] MED LIST changes: +LEVOTHYROXINE112 MCG PO; +PANTOPRAZOLE SO20 MG PO; +PREDNISONE20 MG PO; +TRIAMCINOLONE A15 G1 TOP
[2024-06-30 20:34] LABS: BASOPHILS 0.5 % (0-2); EOSINOPHILS 2.9 % (0-6); HEMATOCRIT 28.1 % (35.0-50.0); HEMOGLOBIN 9.5 g/dL (12.0-18.0); LYMPHOCYTES 21.8 % (24-44); MCH 30.5 (27-36); MCHC 33.7 g/dl (30-36); MCV 90.3 fl (81-99); MONOCYTES 8.5 % (0-12); NEUTROPHILS 66.3 % (39-80); PLATELET COUNT 194 K/uL (140-440); RBC 3.11 M/ul (4.3-5.7); RDW 15.7 (10.5-15.0)
[2024-06-30 20:54] LABS: ALBUMIN 2.3 g/dL (3.4-5.0); ALBUMIN/GLOBULIN RATIO 0.74 (1.1-2.4); ANION GAP 11.1 (7-21); BILIRUBIN, TOTAL 0.5 mg/dL (0.2-1.0); BUN/CREATININE RATIO 11.39 (6.0-28.6); CALCIUM 6.9 mg/dL (8.5-10.1); CREATININE, SERUM 1.58 mg/dL (0.55-1.02); POTASSIUM 3.1 mmol/L (3.5-5.1); PROTEIN, TOTAL 5.4 g/dL (6.4-8.2)
[2024-06-30] MEDS ORDERED: POTASSIUM CHLORIDE 20 MEQ/15 ML CUP PO ONE (22:00)
[2024-06-30] MEDS ORDERED: LACTATED RINGER'S 1,000 ML IV ONE (22:15)
[2024-07-01 00:13] LABS: BILIRUBIN, URINE NEGATIVE (negative); BLOOD/HGB, URINE TRACE-I (Negative); KETONE, URINE NEGATIVE (Negative); LEUK ESTERASE, URINE SMALL (negative); NITRITE, URINE NEGATIVE (negative)
[2024-07-01 00:20] LABS: BACTERIA, URINE 1+ /hpf (negative); CRYSTALS, URINE NONE SEEN (0-1+); EPITHELIAL CELLS, URINE SQUAMOUS 1+ /lpf (0-1+)
[2024-07-01 00:21] LABS: CASTS, URINE NONE SEEN \\lpf; COLLECTION TYPE, URINE CLEAN CATCH; REFLEX CULTURE, URINE Yes (No)
[2024-07-01] MEDS ORDERED: NITROFURANTOIN MONOHYD MACROCR 100 MG CAP PO ONE (01:00)
[2024-07-01] MEDS ORDERED: MACROBID 100 M100 MG PO (01:11)
[2024-07-01 01:15] VITALS: BP 146/79
--- NOTE | 2024-07-01 12:47 | EKG ---
[facility] [address] [facility] [place] [address] Signed Sinus bradycardia Anteroseptal infarct , age undetermined ST \T\ T wave abnormality, consider inferolateral ischemia Abnormal ECG When compared with ECG of 20-JUN-2024 10:54, Anteroseptal infarct is now present ST now depressed in Lateral leads T wave inversion more evident in Lateral leads Confirmed by Licha Melgar MD ([id number]) on 07/01/2024 12:47:03 PM Electronically Signed By: LICHA MELGAR MD 07/01/24 1247 PATIENT NAME: TERRELL BECERRIL [place] Electrocardiogram DATE OF : 47 PHYSICIAN: LICHA MELGAR MD REPORT #: [id number] REPORT IS CONFIDENTIAL AND NOT TO BE RELEASED WITHOUT AUTHORIZATION
== END 2024-07-01 01:16 | disposition home or self-care (01) ==
LOC: ED 20:14
PROVIDERS: Internal Medicine
DX: E86.0 Dehydration (principal); N39.0 Urinary tract infection, site not specified; I10 Essential (primary) hypertension; I25.2 Old myocardial infarction; E11.9 Type 2 diabetes mellitus without complications; J45.909 Unspecified asthma, uncomplicated; Z95.5 Presence of coronary angioplasty implant and graft; Z79.82 Long term (current) use of aspirin; Z79.01 Long term (current) use of anticoagulants; Z91.030 Bee allergy status; Z91.013 Allergy to seafood; Z79.890 Hormone replacement therapy; Z79.899 Other long term (current) drug therapy; Z88.8 Allergy status to other drugs, medicaments and biological substances; Z91.018 Allergy to other foods
CPT/HCPCS: 36415; 70450; 80053; 81001; 84484; 85025; 87088; 93005; 93010; 99284-25; A9270; J7121

== ENCOUNTER 2024-07-06 07:59 | Emergency (ER) | payer MEDICARE, OTHER ==
[~2024-07-06] VITALS: Ht 162.6 cm; Wt 71.2 kg
--- NOTE | ~2024-07-06 | OR ---
[facility] [address] [place], [place] [address] Draft DATE OF OPERATION: 07/06/2024 SURGEON: Ramandeep Juárez MD PREOPERATIVE DIAGNOSES: 1. Progressive recurrent anemia. 2. History of gastric bypass. 3. Recent expressive aphasia, neurologic event with known underlying severe advanced vasculopathy. POSTOPERATIVE DIAGNOSIS: Pouch ulcer, nonbleeding with issa white base, less than 2 cm. PROCEDURE: Esophagogastroduodenoscopy with biopsy. ANESTHESIA: Intravenous sedation propofol; Jose Martinez CRNA. INDICATION: This 79-year-old white woman is a patient of Dr. Sam and was admitted on 07/06/2024 with an expressive aphasia and significant neurologic change from previously. Evaluation for the event did not show occlusive disease of any major vessel, but did show evidence of chronic ischemic change. She has known vasculopathy in various realms. She also was noted to have some amount of maroon stool a few days ago without hematemesis. She has undergone gastric bypass operation in the distant past and has been shown to have a pouch ulcer in the past from reports I have heard as performed by Dr. Jane. She has been transfused at least one and possibly 2 units of red blood cells and has had drift of her hematocrit since then but no bleeding per rectum. She is now to undergo upper endoscopy since her hemoglobin has dropped overnight. Notably, she has no gross bleeding from above or below. I spoke with her son, Mr. Rollins at [phone] to obtain a reasonably informed consent. The risk of bleeding, infection, and perforation were reviewed with him and consent was deemed appropriate under the circumstances. FINDINGS: The issa white based ulcer was noted proximal to the anastomosis of the stomach to jejunal limb. It was not bleeding. It was biopsied on the possibility of malignancy of course. Biopsies of the stomach were also undertaken. CLOtest was negative 20 minutes postprocedure. PATIENT NAME: TERRELL ROLLINS OPERATIVE REPORT DATE OF : 47 REPORT #: [id number] PHYSICIAN: RAMANDEEP JUÁREZ MD PCP: COSMO WALLER MD REPORT IS CONFIDENTIAL AND NOT TO BE RELEASED WITHOUT AUTHORIZATION [facility] [address] [place], [place] [address] Draft DESCRIPTION OF PROCEDURE: The patient was brought to the endoscopy suite, remained in the supine position, given intravenous sedation by the feather shaper with propofol. Only a little anesthesia was required. A bite block was placed. An Olympus video upper endoscope was passed in the hypopharynx and into the esophagus without problem. Esophagus throughout its length was reasonably normal. Scope was passed in the gastric pouch remnant was immediately noted proximal to the anastomosis (gastrojejunal anastomosis was a round ulcer with relatively flat edges with a issa white base and no evidence of recent bleeding). There was no sign of visible vessel. Scope was advanced down the Emily limb as far as possible, but never did encounter the duodenojejunal anastomosis. Scope was withdrawn and the other end of the Emily limb was examined, found to be normal as well. Biopsies were then taken of the ulcer and also the normal gastric pouch to assess for H pylori. Distal esophagus and remaining esophagus were normal and they were not biopsied. She was taken to recovery room in good condition. CONCLUDING DIAGNOSIS: Most likely her anemia is related to ulceration of the gastric pouch remnant. I discussed this with her son and we will review with Dr. Sam. I would recommend Carafate be added to her regimen if it is not already being taken in addition to PPI medication. MD LEIDY Norman/MODL /[id number] cc: MD Dr. Flaco Bryan Copies: ~ PATIENT NAME: TERRELL ROLLINS [place] OPERATIVE REPORT DATE OF : 47 REPORT #: [id number] PHYSICIAN: RAMANDEEP JUÁREZ MD PCP: COSMO WALLER MD REPORT IS CONFIDENTIAL AND NOT TO BE RELEASED WITHOUT AUTHORIZATION
[2024-07-06 08:49] LABS: BASOPHILS 0.5 % (0-2); EOSINOPHILS 1.8 % (0-6); HEMATOCRIT 28.7 % (35.0-50.0); HEMOGLOBIN 9.6 g/dL (12.0-18.0); LYMPHOCYTES 13.3 % (24-44); MCH 30.4 (27-36); MCHC 33.5 g/dl (30-36); MCV 90.9 fl (81-99); MONOCYTES 8.6 % (0-12); NEUTROPHILS 75.8 % (39-80); PLATELET COUNT 176 K/uL (140-440); RBC 3.16 M/ul (4.3-5.7); RDW 15.8 (10.5-15.0)
[2024-07-06 09:06] LABS: ALBUMIN 2.5 g/dL (3.4-5.0); ALBUMIN/GLOBULIN RATIO 0.76 (1.1-2.4); ANION GAP 12.2 (7-21); BILIRUBIN, TOTAL 0.7 mg/dL (0.2-1.0); BUN/CREATININE RATIO 21.77 (6.0-28.6); CALCIUM 6.9 mg/dL (8.5-10.1); CREATININE, SERUM 1.24 mg/dL (0.55-1.02); POTASSIUM 3.2 mmol/L (3.5-5.1); PROTEIN, TOTAL 5.8 g/dL (6.4-8.2)
[2024-07-06] MEDS ORDERED: ondansetron HCL 4 MG/2 ML VIAL IV ONE (11:15)
[2024-07-06] MEDS ORDERED: ONDANSETRON ODT4 MG PO (11:19)
[2024-07-06 11:25] LABS: BILIRUBIN, URINE NEGATIVE (negative); BLOOD/HGB, URINE NEGATIVE (Negative); KETONE, URINE NEGATIVE (Negative); LEUK ESTERASE, URINE TRACE (negative); NITRITE, URINE POSITIVE (negative)
[2024-07-06 11:33] LABS: EPITHELIAL CELLS, URINE SQUAMOUS 1+ /lpf (0-1+); WHITE BLOOD CELLS, URINE 21-40 /HPF (0-5)
[2024-07-06 11:34] LABS: BACTERIA, URINE 2+ /hpf (negative); CASTS, URINE NONE SEEN \\lpf; COLLECTION TYPE, URINE CLEAN CATCH; CRYSTALS, URINE NONE SEEN (0-1+); REFLEX CULTURE, URINE Yes (No)
[2024-07-06 12:40] VITALS: BP 154/59
--- NOTE | 2024-07-06 15:39 | EKG ---
[facility] [address] [facility] [place] [address] Signed Sinus rhythm with premature atrial complexes ST \T\ T wave abnormality, consider inferior ischemia ST \T\ T wave abnormality, consider anterolateral ischemia Abnormal ECG When compared with ECG of 30-JUN-2024 20:21, premature atrial complexes are now present Criteria for Anteroseptal infarct are no longer present ST no longer depressed in Lateral leads Confirmed by Gualberto Bueno MD () on 07/06/2024 3:39:14 PM Electronically Signed By: GUALBERTO BUENO MD 07/06/24 1539 PATIENT NAME: TERRELL BECERRIL [place] Electrocardiogram DATE OF : 47 PHYSICIAN: GUALBERTO BUENO MD REPORT #: [id number] REPORT IS CONFIDENTIAL AND NOT TO BE RELEASED WITHOUT AUTHORIZATION
== END 2024-07-06 12:40 | disposition home or self-care (01) ==
LOC: ED 07:59
PROVIDERS: Emergency Medicine
DX: R11.2 Nausea with vomiting, unspecified (principal); R10.33 Periumbilical pain; I10 Essential (primary) hypertension; E11.9 Type 2 diabetes mellitus without complications; J45.909 Unspecified asthma, uncomplicated; I25.2 Old myocardial infarction; G47.30 Sleep apnea, unspecified; Z95.5 Presence of coronary angioplasty implant and graft; Z86.73 Personal history of transient ischemic attack (TIA), and cerebral infarction without residual deficits; Z91.013 Allergy to seafood; Z88.8 Allergy status to other drugs, medicaments and biological substances; Z91.030 Bee allergy status; Z91.018 Allergy to other foods; Z79.01 Long term (current) use of anticoagulants; Z79.82 Long term (current) use of aspirin; Z79.85 Long-term (current) use of injectable non-insulin antidiabetic drugs; Z79.890 Hormone replacement therapy; Z79.899 Other long term (current) drug therapy
CPT/HCPCS: 36415; 74177; 80053; 81001; 83690; 85025; 87077; 87088; 87186; 93005; 93010; 96374; 99284-25; J2405; Q9967

== ENCOUNTER 2024-07-06 18:11 | Inpatient (IN) | payer MEDICARE, OTHER ==
[~2024-07-06] VITALS: Ht 162.6 cm; Wt 70.4 kg
[~2024-07-06 18:11] MED LIST changes: +ONDANSETRON ODT4 MG PO
[2024-07-06 18:33] LABS: BASOPHILS 0.8 % (0-2); EOSINOPHILS 1.2 % (0-6); HEMATOCRIT 28.1 % (35.0-50.0); HEMOGLOBIN 9.5 g/dL (12.0-18.0); LYMPHOCYTES 22.1 % (24-44); MCH 30.7 (27-36); MCHC 33.8 g/dl (30-36); MCV 90.7 fl (81-99); MONOCYTES 7.8 % (0-12); NEUTROPHILS 68.1 % (39-80); PLATELET COUNT 211 K/uL (140-440); RBC 3.09 M/ul (4.3-5.7); RDW 15.6 (10.5-15.0)
[2024-07-06 18:43] LABS: INR 1.47 (0.80-1.30); PROTIME 17.8 Sec (11.2-14.2)
[2024-07-06 18:53] LABS: PARTIAL THROMBOPLASTIN TIME 30.3 Sec (22.9-41.3)
[2024-07-06] MEDS ORDERED: SODIUM CHLORIDE 0.9% 500 ML IV PRN (19:00)
[2024-07-06 19:29] LABS: ALBUMIN 2.6 g/dL (3.4-5.0); ALBUMIN/GLOBULIN RATIO 0.79 (1.1-2.4); ANION GAP 15.7 (7-21); BILIRUBIN, TOTAL 0.6 mg/dL (0.2-1.0); BUN/CREATININE RATIO 24.8 (6.0-28.6); CALCIUM 7.1 mg/dL (8.5-10.1); CREATININE, SERUM 1.25 mg/dL (0.55-1.02); POTASSIUM 3.7 mmol/L (3.5-5.1); PROTEIN, TOTAL 5.9 g/dL (6.4-8.2)
[2024-07-06] MEDS ORDERED: ondansetron HCL 4 MG/2 ML VIAL IV ONE (19:30)
[2024-07-06] MEDS ORDERED: ACETAMINOPHEN 325 MG TAB PO PRN (23:15)
[2024-07-06] MEDS ORDERED: DEXTROSE 5% - LACTATED RINGERS 1,000 ML IV SCH (23:15)
[2024-07-06] MEDS ORDERED: ondansetron HCL 4 MG/2 ML VIAL IV PRN (23:15)
[2024-07-06] MEDS ORDERED: FUROSEMIDE 20 MG TAB PO SCH (23:30)
[2024-07-06] MEDS ORDERED: carvediloL 6.25 MG TAB PO SCH (23:30)
[2024-07-06 23:47] LABS: BILIRUBIN, URINE NEGATIVE (negative); BLOOD/HGB, URINE TRACE-I (Negative); KETONE, URINE TRACE (Negative); LEUK ESTERASE, URINE NEGATIVE (negative); NITRITE, URINE NEGATIVE (negative)
[2024-07-06 23:56] LABS: CASTS, URINE NONE SEEN \\lpf; CRYSTALS, URINE NONE SEEN (0-1+); EPITHELIAL CELLS, URINE SQUAMOUS 1+ /lpf (0-1+); RED BLOOD CELLS, URINE 0-1 /hpf (0-5); WHITE BLOOD CELLS, URINE >50 /HPF (0-5)
[2024-07-06 23:57] LABS: BACTERIA, URINE 2+ /hpf (negative); COLLECTION TYPE, URINE CATH; REFLEX CULTURE, URINE Yes (No)
[2024-07-07] VITALS (7 sets, daily range): BP systolic 146–152; BP diastolic 44–72
[2024-07-07] MEDS ORDERED: LORazepam 2 MG/ML VIAL IV PRN (00:15)
[2024-07-07] MEDS ORDERED: CEFTRIAXONE SODIUM 2 GM in SODIUM CHLORIDE 0.9% 100 ML IV ONE (01:00)
[2024-07-07] MEDS ORDERED: CEFTRIAXONE SODIUM 2 GM VIAL ONE (02:28)
[2024-07-07 06:18] LABS: BASOPHILS 0.7 % (0-2); EOSINOPHILS 0.6 % (0-6); HEMOGLOBIN 7.7 g/dL (12.0-18.0); MCH 30.3 (27-36); MCHC 33.4 g/dl (30-36); MCV 90.9 fl (81-99); MONOCYTES 6.3 % (0-12); NEUTROPHILS 73.4 % (39-80); PLATELET COUNT 171 K/uL (140-440); RBC 2.53 M/ul (4.3-5.7); RDW 15.8 (10.5-15.0)
[2024-07-07 06:36] LABS: ALBUMIN 2.3 g/dL (3.4-5.0); ALBUMIN/GLOBULIN RATIO 0.74 (1.1-2.4); ANION GAP 8.3 (7-21); BILIRUBIN, TOTAL 0.3 mg/dL (0.2-1.0); BUN/CREATININE RATIO 28.33 (6.0-28.6); CALCIUM 6.8 mg/dL (8.5-10.1); CREATININE, SERUM 1.2 mg/dL (0.55-1.02); MAGNESIUM 1.2 mg/dL (1.8-2.4); POTASSIUM 3.3 mmol/L (3.5-5.1); PROTEIN, TOTAL 5.4 g/dL (6.4-8.2)
[2024-07-07] MEDS ORDERED: LEVOTHYROXINE SODIUM 112 MCG TAB PO SCH (07:00)
--- NOTE | 2024-07-07 07:54 | NUR ---
New admit to the medical floor. Patient arrived to the medical floor resting, eyes closed. Patient easily wakes to verbal stimuli. Patient has notable slurred speech, she is a poor historian. Patient able to verbalize her name and birthday to me. Pupils equal bilat, right arm is more weak as compared to left. legs are both equal/weak. PO medications held due to aspirations risk. Patient has coughed a few times to clear her airway. Per ER report patient failed her bedside swallow eval. Bed alarm intact. Patient oriented to room and call light.
[2024-07-07 08:00] LABS: ABO A; RH POSITIVE
[2024-07-07] MEDS ORDERED: POTASSIUM CHLORIDE 40 MEQ,LIDOCAINE HCL 1% 40 MG in DEXTROSE 5% 250 ML IV ONE (08:00)
[2024-07-07] MEDS ORDERED: CALCIUM CARBONATE 500 MG CHEW PO ONE (08:00)
[2024-07-07 08:01] LABS: ANTIBODY SCREEN NEGATIVE
[2024-07-07] MEDS ORDERED: carvediloL 6.25 MG TAB PO SCH ×2 (09:00→15:00)
[2024-07-07] MEDS ORDERED: ASPIRIN 325 MG TAB PO SCH (09:00)
[2024-07-07] MEDS ORDERED: GABAPENTIN 100 MG CAP PO SCH (09:00)
[2024-07-07] MEDS ORDERED: DULOXETINE HCL 60 MG CAP PO SCH (09:00)
[2024-07-07] MEDS ORDERED: APIXABAN 5 MG TAB PO SCH (09:00)
[2024-07-07] MEDS ORDERED: MAGNESIUM SULFATE 2 GM/50 ML BAG IV SCH (09:00)
[2024-07-07] MEDS ORDERED: DIGOXIN 125 MCG TAB PO SCH (09:00)
--- NOTE | 2024-07-07 09:10 | NUR ---
Patient left room for MRI study.
[2024-07-07] MEDS ORDERED: POTASSIUM CHLORIDE 10 MEQ TABCR PO ONE (09:45)
--- NOTE | 2024-07-07 11:15 | NUR ---
INTO TO SEE PATIENT. SON AT BEDSIDE. PATIENT PERSONAL INFORMATION REVIEWED. PATIENT LIVES AT [facility]. SHE WAS RECENTLY HOSPITALIZED WITH US. HER SON HAS CONCERNS ABOUT HOW MUCH SHE IS TAKEN CARE OF AT [facility]. STATING "THEY JUST DO NOT CHECK ON HER ENOUGH. I KNOW THEY ARE BUSY BUT SHE NEEDS SOME MORE MONITORING." PATIENT SON ALSO EXPRESSED WANTING HOME HEALTH FOR PT, OT AND NNP. GAVE THE SON A PATIENT CHOICE LETTER. TOLD HIM TO DISCUSS WITH HER POTENTIAL OPTIONS. PATIENT IF SHE IS WILLING TO GO A SNF MIGHT BE BENEFICAL FOR SHORT TERM STRENGTHING. PATIENT USES CPAP THROUGH [facility]. WALKER AT BASELINE. NO OTHER CM NEEDS AT THIS TIME.
--- NOTE | 2024-07-07 12:10 | NUR ---
PT NOT AVAILABLE FOR VISIT. PROVIDED PRAYER.
--- NOTE | 2024-07-07 12:31 | NUR ---
Stool sent to lab at this time. Small amount of coagulated blood noted when patient up to bedside for bm.
[2024-07-07] MEDS ORDERED: PANTOPRAZOLE SODIUM 40 MG/10 ML VIAL IV SCH (13:04)
[2024-07-07 13:06] LABS: BASOPHILS 0.4 % (0-2); EOSINOPHILS 0.4 % (0-6); HEMATOCRIT 22.9 % (35.0-50.0); HEMOGLOBIN 7.6 g/dL (12.0-18.0); LYMPHOCYTES 11.2 % (24-44); MCH 30.4 (27-36); MCHC 33.3 g/dl (30-36); MCV 91.2 fl (81-99); MONOCYTES 6.4 % (0-12); NEUTROPHILS 81.6 % (39-80); PLATELET COUNT 198 K/uL (140-440); RBC 2.51 M/ul (4.3-5.7); RDW 16.1 (10.5-15.0)
--- NOTE | 2024-07-07 13:12 | NUR ---
Imaging aware of needed isotope.
[2024-07-07] MEDS ORDERED: ACETAMINOPHEN 325 MG TAB PO PRN (13:15)
[2024-07-07] MEDS ORDERED: IBLOOD GLUCOSE TEST STRIP 1 EA TEST XX PRN (13:15)
[2024-07-07] MEDS ORDERED: ondansetron HCL 4 MG/2 ML VIAL IV PRN (13:15)
[2024-07-07] MEDS ORDERED: GLUCAGON,HUMAN RECOMBINANT 1 MG/ML VIAL SUB-Q PRN (13:15)
[2024-07-07] MEDS ORDERED: LACTATED RINGER'S 1,000 ML IV SCH (13:15)
[2024-07-07] MEDS ORDERED: DEXTROSE 50% 50 ML SYR IV PRN ×2 (13:15)
[2024-07-07] MEDS ORDERED: DEXTROSE 5% 1,000 ML IV PRN (13:15)
--- NOTE | 2024-07-07 13:41 | NUR ---
Patient tolerted small sips of water and small bite of applesauce. Patient appers to tolerate water ok, I did have to remind patient to swallow applesauce a second time. Patient is very slow to swallow. HOB remains in semi high fowlers. Son at bedside.
--- NOTE | 2024-07-07 14:08 | NUR ---
PATIENT IN BED AT THIS TIME, ASSOCIATE MEDICAL DIRECTOR CHARTED VITALS AND I&O'S, CALL LIGHT WITH IN REACH. IMAGING IS TAKING HER DOWN NOW.
--- NOTE | 2024-07-07 14:18 | NUR ---
UR CLINICAL REVIEW: 2 MN KRISTEN, MEETS INPT CRITERIA FOR UTI/GASTROENTERITIS IV FLUIDS, FURTHER TESTING FOR C.DIFF, STOOL CULTURES PENDING, IV ANTIBIOTICS MEDICARE INPT 07/07/2024 @ 1310 ORDER MATCHES REG NO AUTH REQUIRED PER MEDICARE RULES DC PLAN PENDING, LIKELY SNF AT [place].
--- NOTE | 2024-07-07 15:58 | NUR ---
ST here for evaluation. Patient awake, alert to self and place. Hob elevated at this time.
--- NOTE | 2024-07-07 16:01 | NUR ---
MED REC COMPLETE
--- NOTE | 2024-07-07 16:02 | NUR ---
Per Speech therapy reccomendation- Patient to be on thin liquid/pureed diet. Updated current 60g carb diet with new modifications.
--- NOTE | 2024-07-07 16:05 | NUR ---
PATIENT WAS IN BED AT THIS TIME, LUNCHROOM WORKER ASSISTED SOO HARTMANN IN A BREIF CHANGE, PUREWICK CHANGE, AND NEW CHUCKS. PATIENT HAD A LARGE BM, WE RE-POSITIONED AND GAVE HER SOME WATER. CALL LIGHT WITH IN REACH AND NOTHING ELSE NEEDED AT THIS TIME.
[2024-07-07] MEDS ORDERED: CALCIUM CARBONATE 500 MG CHEW PO SCH (17:00)
[2024-07-07] MEDS ORDERED: IBLOOD GLUCOSE TEST STRIP 1 EA TEST VI SCH (17:00)
[2024-07-07] MEDS ORDERED: ATORVASTATIN 20 MG TAB PO SCH (17:00)
--- NOTE | 2024-07-07 17:23 | NUR ---
PATIENT IN BED AT THIS TIME, SON IS IN THE ROOM WITH HER. RESIDENTIAL ENERGY AUDITOR CHARTED VITALS EARLIER WITH SOO HARTMANN, AND JUST CHARTED I&O'S. GOT PATIENT A WARM BLANKET AND DID SOME ORAL CARE. CALL LIGHT WIHT IN REACH AND NOTHING ELSE NEEDED AT THIS TIME.
--- NOTE | 2024-07-07 17:54 | NUR ---
Updated Dr. Sam regarding C-Diff + pcr. Per Dr. Sam, he will place new medication orders.
--- NOTE | 2024-07-07 19:37 | NUR ---
RECEIVED REPORT FROM SOO HARTMANN. PT RESTING IN BED, SON AT BEDSIDE. SON'S QUESTIONS ANSWERED, NO OTHER NEEDS AT THIS TIME.
--- NOTE | 2024-07-07 20:00 | NUR ---
dr jaquez at rn station. per diet order pt to be npo at midnight-verbal order read back from brian barr to switch blood sugar checks from [facility] to q6h while npo.
--- NOTE | 2024-07-07 20:43 | NUR ---
TOXICS PROGRAM OFFICER OBTAINED VITALS AND I&O. PT STATES NO NEEDS AT THIS TIME. RT AND FAMILY IN ROOM. CALL LIGHT WITHIN REACH.
--- NOTE | 2024-07-07 20:56 | NUR ---
TERRELL IS IN AND OUT OF SLEEP IN BED ON ROOM AIR W/HOB ELEVATED
[2024-07-07] MEDS ORDERED: VANCOMYCIN HCL 125 MG CAP PO SCH (21:00)
[2024-07-07] MEDS ORDERED: MELATONIN 3 MG TAB PO PRN (21:00)
--- NOTE | 2024-07-07 21:00 | NUR ---
PT RESTING IN BED, SON AT BEDSIDE. FLAT AFFECT. ORIENTED X SELF, HOSPITAL. DENIES PAIN. MINIMAL VERBAL ATTEMPTS, SPEECH SLURRED. LEFT FACIAL DROOP. LEFT PUPIL > RIGHT PUPIL. PUPILS BRISK. RUE ATAXIA. MS 4/5 X 4, RUE SLIGHTLY WEAKER. RIGH MOTORCYCLE DELIVERER WEAK. LSC. HRR W/ MURMUR. TELE IN PLACE. BTA. PUREWICK IN PLACE-UP YELLOW. SCD'S IN PLACE TO BLE. LFA SL AND RFA IV INFUSING LR. COCCYX REDDENED, BARRIER CREAM IN PLACE. REPOSITIONED TO RIGHT SIDE W/ MOD ASSIST. BED ALARM IN PLACE FOR SAFETY. CALL LIGHT WITHIN REACH.
--- NOTE | 2024-07-07 22:20 | NUR ---
DR. GALDAMEZ NOTIFIED OF LEFT PUPIL SLIGHTLY LARGER THAN RIGHT PUPIL. NO NEW ORDERS. WILL CONT TO MONITOR.
--- NOTE | 2024-07-07 22:45 | NUR ---
PT NOTED TO BE SCREAMING OUT BUT APPEARS ASLEEP. WHEN AWAKENED DOES NOT RECALL SCREAMING. DENIES NEEDS.
[2024-07-08] VITALS (11 sets, daily range): BP systolic 144–175; BP diastolic 46–79
--- NOTE | 2024-07-08 00:57 | NUR ---
PT ASLEEP, APPEARS COMFORTABLE.
--- NOTE | 2024-07-08 01:46 | NUR ---
WARP TESTER OBTAINED VITALS AND NO NEW I&O AT THIS TIME. PT STATES NO FURTHER NEEDS AT THIS TIME. CALL LIGHT WITHIN REACH AND BED ALARM ON.
[2024-07-08] MEDS ORDERED: IBLOOD GLUCOSE TEST STRIP 1 EA TEST VI SCH ×2 (02:00→17:00)
--- NOTE | 2024-07-08 02:47 | NUR ---
BG CHECKED WHILE NPO-136. ORAL CARE DONE BY PT W/ ASSIST FROM RN.
--- NOTE | 2024-07-08 03:15 | NUR ---
PT YELLING OUT, UNABLE TO VERBALIZE ANY NEEDS AT THIS TIME. CALL LIGHT WITHIN REACH.
[2024-07-08 05:45] LABS: BASOPHILS 0.8 % (0-2); EOSINOPHILS 1.6 % (0-6); HEMATOCRIT 19.9 % (35.0-50.0); HEMOGLOBIN 6.7 g/dL (12.0-18.0); LYMPHOCYTES 15.2 % (24-44); MCH 30.9 (27-36); MCHC 33.6 g/dl (30-36); MCV 91.8 fl (81-99); MONOCYTES 6.6 % (0-12); NEUTROPHILS 75.8 % (39-80); PLATELET COUNT 179 K/uL (140-440); RBC 2.17 M/ul (4.3-5.7); RDW 16.3 (10.5-15.0)
[2024-07-08 06:07] LABS: ALBUMIN 2.5 g/dL (3.4-5.0); ALBUMIN/GLOBULIN RATIO 0.89 (1.1-2.4); ANION GAP 8.6 (7-21); BILIRUBIN, TOTAL 0.4 mg/dL (0.2-1.0); BUN/CREATININE RATIO 23.46 (6.0-28.6); CREATININE, SERUM 0.98 mg/dL (0.55-1.02); MAGNESIUM 1.8 mg/dL (1.8-2.4); PHOSPHORUS, INORGANIC 2.4 mg/dL (2.5-4.9); POTASSIUM 3.6 mmol/L (3.5-5.1); PROTEIN, TOTAL 5.3 g/dL (6.4-8.2)
--- NOTE | 2024-07-08 06:13 | NUR ---
MEAT APPRENTICE AND RN OBTAINED VITALS AND I&O. PT REPOSITIONED ONTO RIGHT SIDE. PT STATES NO NEEDS AT THIS TIME. CALL LIGHT WITHIN REACH.
--- NOTE | 2024-07-08 06:19 | NUR ---
PT ASLEEP, AWAKENS TO VOICE BUT DROWSY. INTERMITTENTLY YELLING OUT. ORIENTED X SELF ONLY. LEFT PUPIL SLIGHTLY LARGER THAN RIGHT BUT BOTH BRISK. LEFT FACIAL DROOP SLIGHT. LENORE WEAKER, SLIGHTLY EDEMATOUS. [facility], WILL NOTIFY .
--- NOTE | 2024-07-08 06:26 | NUR ---
DR. GALDAMEZ NOTIFIED OF UO OF 150cc. ALSO NOTIFIED OF [facility] OF 6.7/19.9. MD WILL PLACE ORDER FOR 1 UNIT. WANTS BLADDERSCAN DONE AT THIS TIME.
--- NOTE | 2024-07-08 06:33 | NUR ---
DERRICK BOAT CAPTAIN BLADDER SCANNED PT AT RN REQUEST. BLADDER SCAN SHOWED 304. RN NOTIFED. PT STATES NO NEEDS AND CALL LIGHT WITHIN REACH.
--- NOTE | 2024-07-08 06:34 | NUR ---
DR. GALDAMEZ NOTIFIED OF BLADDERSCAN 304cc. WANTS WHALEY CATH PLACED.
[2024-07-08 06:45] LABS: IS CROSSMATCH COMPATIBLE
[2024-07-08] MEDS ORDERED: LEVOTHYROXINE SODIUM 112 MCG TAB PO SCH (07:00)
--- NOTE | 2024-07-08 07:04 | NUR ---
16 FR WHALEY CATH INSERTED W/ MILD DIFFICULTY. PT TOLERATED WELL.
--- NOTE | 2024-07-08 07:39 | NUR ---
Patient resting in bed, eyes closed, respirations even and non labored. SP02 97% on room air per cpox. Patient has no notable distress at this time. Bed alarm intact.
[2024-07-08] MEDS ORDERED: CEFTRIAXONE SODIUM 1 GM VIAL IV ONE (08:41)
--- NOTE | 2024-07-08 08:50 | NUR ---
PATIENT IS IN BED AT THIS TIME, ALERT AND TALKING MUCH BETTER TODAY. POWDER WORKER CHECKED HER BREIF WHICH WAS DRY, EMPTIED HER CATHETER, ADJUSTED HER. POWDER WORKER ALSO CHARTED VITALS AND OUTPUT. PATIENT WANTED A WARM BLANKET AND PAIN MED, SOO HARTMANN NOTIFIED. CALL LIGHT WITH IN REACH AND NOTHING ELSE NEEDED AT THIS TIME.
[2024-07-08] MEDS ORDERED: ATORVASTATIN 40 MG TAB PO SCH (09:00)
[2024-07-08] MEDS ORDERED: CEFTRIAXONE SODIUM 1 GM in SODIUM CHLORIDE 0.9% 100 ML IV SCH (09:00)
[2024-07-08] MEDS ORDERED: DIGOXIN 125 MCG TAB PO SCH (09:00)
[2024-07-08] MEDS ORDERED: ISOSORBIDE MONONITRATE 30 MG TABCR PO SCH (09:00)
[2024-07-08] MEDS ORDERED: DULOXETINE HCL 60 MG CAP PO SCH (09:00)
--- NOTE | 2024-07-08 09:46 | NUR ---
PRBC 1-1 units started at 0900 @ 60ml/hr for fifteen minutes. Patient tolerated well, infusion rate increased to 150ml/hr after first fifteen minutes. Patient resting in bed, no complaints of tranfusion reaction, she has no notable distress. CPOX intact. IV patent. Bed alarm in place.
--- NOTE | 2024-07-08 10:39 | NUR ---
Patient's son at bedside, he has been updated with plan of care. Blood infusing at this time.
[2024-07-08] MEDS ORDERED: PHARMACY RENAL DOSE ADJUSTMENT 1 DOSE MISC PO SCH (12:00)
[2024-07-08 12:43] LABS: HEMATOCRIT 27.6 % (35.0-50.0); HEMOGLOBIN 9.3 g/dL (12.0-18.0); MCH 30.1 (27-36); MCHC 33.5 g/dl (30-36); MCV 89.8 fl (81-99); RBC 3.08 M/ul (4.3-5.7); RDW 18.1 (10.5-15.0)
--- NOTE | 2024-07-08 13:19 | NUR ---
Patient resting in bed, respirations even and non labored. Patient easily wakes to verbal stimuli, pt continues to has slurred speech. Patient denies pain at this time. IV fluids infusing. Son remains at bedside. Call light within reach.
--- NOTE | 2024-07-08 14:13 | NUR ---
TORB from Dr. Sam to advance diet back to 60g carb/thin liquids/pureed food. Order placed at this time.
--- NOTE | 2024-07-08 14:18 | NUR ---
PATIENT IS IN BED AT THIS TIME, GROUP SALES REPRESENTATIVE CHARTED VITALS AND I&O'S, ADJUSTED PATIENT, CHECKED BREIF WHICH IS DRY. SON IS VISITING WITH HER IN THE ROOM, GROUP SALES REPRESENTATIVE GOT FRESH WATER, CALL LIGHT WITH IN REACH AND NOTHING ELSE NEEDED AT THIS TIME.
[2024-07-08] MEDS ORDERED: CEFEPIME HCL 1 GM in SODIUM CHLORIDE 0.9% 100 ML IV SCH (14:27)
[2024-07-08] MEDS ORDERED: CEFEPIME HCL 1 GM VIAL ONE ×2 (14:54→21:43)
--- NOTE | 2024-07-08 15:09 | NUR ---
PT RESTING IN BED, SON LEFT BEDSIDE AND WHEN HE RETURNED SHE WAS ATTEMPTING TO GET UP. ASSISTED BACK TO BED. IV ABX STARTED FOR PRIMARY RN. IV FLUIDS RUNNING AND WILL RESUME AFTER ABX. CALL LIGHT WITHIN REACH, INFORMED SON TO LET US KNOW WHEN HE LEAVES TO ASSURE WE SET THE BED ALARM. DENIES ANY FURTHER NEEDS AT THIS TIME.
--- NOTE | 2024-07-08 17:07 | NUR ---
PANTRY CHEF READJUSTED PATIENT, CHECKED HER BREIF, TURNED ON SOME MUSIC FOR HER, AND FRESH WATER. SHE SEEMS A BIT RESTLESS AND REFUSED JELLO OR APPLE SAUCE. CALL LIGHT WITH IN REACH AND NOTHING ELSE NEEDED AT THIS TIME.
--- NOTE | 2024-07-08 18:21 | NUR ---
PATIENT IS IN BED AT THIS TIME, RN AND I CHECKED HER BREIF, PULLED HER UP IN BED AND FLOATED HER HIPS. SON IS IN THE ROOM WITH HER, INFORMATION SYSTEMS SECURITY DEVELOPER CHARTED VITALS AND I&O'S. CALL LIGHT WITH IN REACH AND NOTHING ELSE NEEDED AT THIS TIME.
--- NOTE | 2024-07-08 19:50 | NUR ---
RECEIVED REPORT FROM SOO HARTMANN. PT RESTING IN BED, DROWSY. SON AT BEDSIDE. ALL QUESTIONS AND CONCERNS ADDRESSED.
--- NOTE | 2024-07-08 20:40 | NUR ---
PT AWAKE, SON AT BEDSIDE. AWAKE AND ALERT. ORIENTED X SELF ONLY. VSS. DENIES PAIN. SPEECH LESS SLURRED, VERBAL REPOSNSES ARE DELAYED. LEFT FACIAL DROOP. LEFT PUPIL SLIGHTLY LARGER THAN RIGHT-BOTH BRISK. NO ATAXIA NOTED. MS 4/5 X 4. GEN WEAKNESS. REPORTS N/T X ALL [address] CPO[address] PL[address]. HRR W/ MURMUR, TELEMETRY IN PLACE. 1+ EDEMA TO BUE, RIGHT > LEFT. BT HYPO. POOR APPETITE. TOOK A FEW SMALL SIPS OF WATER WHEN OFFERED. WHALEY W/ CLEAR YELLOW URINE. CATHETER CARE DONE BY PARI MUTUEL CLERK. LFA IV W/ LR INFUSING. RFA IV SL'D, WNL. PT TOOK PILLS W/ APPLESAUCE-NEEDED CUEING FOR CHIN TUCK BUT NO DIFFICULTY NOTED. BED ALARM IN PLACE FOR SAFETY. SLIGHT BLANCHABLE REDNESS TO COCCYX, BARRIER CREAM IN PLACE. PT REPOSITIONED IN BED W/ CUEING.
--- NOTE | 2024-07-08 20:51 | NUR ---
TERRELL IS IN AND OUT OF SLEEP IN BED W/HOB ELEVATED. HER SON, ADRIANNA, IS AT HER BEDSIDE TALKING TO HER WHEN SHE WAKES INTERMITTENTLY. TERRELL IS ON ROOM AIR, NOT TOLERATING HER HOME CPAP UNIT.
[2024-07-08 21:11] LABS: THYROXINE FREE 1.4 ng/dL (0.9-1.7)
--- NOTE | 2024-07-08 22:06 | NUR ---
PT AWAKE AND ALERT, READY TO GO TO SLEEP. SON AT BEDSIDE. ATTEMPTED TO PLACE C-PAP, PT UNHAPPY WITH MASK PLACEMENT. WILL ALERT RT FOR HELP W/ PLACEMENT.
--- NOTE | 2024-07-08 22:39 | NUR ---
PT HAS C-PAP OFF ALREADY. PT DECLINED HAVING IT PUT BACK ON. WILL TRY AGAIN LATER.
--- NOTE | 2024-07-08 23:28 | NUR ---
PT RESTLESS, CONTINUALLY TRYING TO GET OOB. PT REDIRECTED, REORIENTED. BED ALARM IN PLACE.
--- NOTE | 2024-07-08 23:36 | NUR ---
PRN MELATONIN AND TYLENOL ADMINISTERED PER EMAR. SCD'S OFF PER PT REQUEST.
--- NOTE | 2024-07-08 23:45 | NUR ---
PT RESTING ON LEFT SIDE, APPEARS ASLEEP.
[2024-07-09] VITALS (10 sets, daily range): BP systolic 126–174; BP diastolic 44–64
[2024-07-09] MEDS ORDERED: LIDOCAINE 2% VISCOUS 6 ML SYR TOP ONE (00:45)
--- NOTE | 2024-07-09 00:53 | NUR ---
PT SITTING EOB, DROWSY. ASSISTED TO LAY BACK DOWN. BED ALARM IN PLACE.
--- NOTE | 2024-07-09 02:00 | NUR ---
PT CONTINUALLY ATTEMPTING TO GET OOB UNASSISTED, BED ALARM SOUNDING. SITTER AT BEDSIDE FOR SAFETY.
--- NOTE | 2024-07-09 02:56 | NUR ---
PT SLEEPING SOUNDLY-APPEARS COMFORTABLE. SITTER AT BEDSIDE FOR SAFETY.
--- NOTE | 2024-07-09 03:56 | NUR ---
BED ALARM SOUNDING-PT ATTEMPTING TO GET OOB UNASSISTED. PT HELPED BACK UP IN BED. BED ALARM IN PLACE.
[2024-07-09 05:24] LABS: BASOPHILS 0.8 % (0-2); EOSINOPHILS 0.9 % (0-6); HEMATOCRIT 24.2 % (35.0-50.0); HEMOGLOBIN 8.1 g/dL (12.0-18.0); LYMPHOCYTES 14.6 % (24-44); MCH 29.9 (27-36); MCHC 33.5 g/dl (30-36); MONOCYTES 7.5 % (0-12); NEUTROPHILS 76.2 % (39-80); PLATELET COUNT 171 K/uL (140-440); RBC 2.72 M/ul (4.3-5.7); RDW 18.5 (10.5-15.0)
[2024-07-09 05:33] LABS: ANION GAP 11.7 (7-21); BUN/CREATININE RATIO 14.58 (6.0-28.6); CALCIUM 7.1 mg/dL (8.5-10.1); CREATININE, SERUM 0.96 mg/dL (0.55-1.02); MAGNESIUM 1.5 mg/dL (1.8-2.4); POTASSIUM 3.7 mmol/L (3.5-5.1)
[2024-07-09] MEDS ORDERED: CEFEPIME HCL 1 GM VIAL ONE ×3 (06:40→21:26)
--- NOTE | 2024-07-09 06:53 | NUR ---
PT CONTINUES TO BE RESTLESS AND IMPULSIVE REQUIRING 1:1 SUPERVISION.
--- NOTE | 2024-07-09 07:26 | NUR ---
VERBAL REPORT RECEIVED FROM SOO SESAY. PT RESTS IN BED WITH EYES CLOSED, RESP EVEN AND UNLABORED, CPOX IN PLACE, SPO2 93%. BED IN LOW POSITION AND LOCKED, BED RAIIS UP X4. ALARM ON.
--- NOTE | 2024-07-09 07:47 | CONS ---
[facility] [address], [place] [address] Signed DATE OF CONSULTATION: 07/08/2024 PROBLEM: Anemia, history of recent blood per rectum, and admission for acute cerebrovascular accident. HISTORY OF PRESENT ILLNESS: This 79-year-old white woman has a complex past medical history, but in general has profound peripheral vascular disease. She has undergone carotid stenting, aortic valve replacement for which she is anticoagulated and has had other vascular problems over time. She presented to the emergency room for the second time in recent days with an expressive aphasia and findings consistent with acute cerebrovascular accident. Evaluation by CT and MRI showed no large vessel occlusion, but multiple bland infarcts from the past. She had no hemorrhage. She underwent upper endoscopy for GI bleeding by Dr. Ky Jane in September 2023. She was found to have routine gastric pouch anatomy and no esophageal varices. She was known to have fatty liver and some cirrhosis of the liver in the past. She has been followed by Gastroenterology group in [place], [place]. Surveillance for esophageal varices was the indication for upper endoscopy by Dr. Jane. She had undergone esophageal Schatzki ring dilation in the distant past in 2011. Her admission by Dr. Sam on July 07 was notable for her hematocrit of 23, and some reports of "clots" and blood per rectum, but no hematemesis. Coagulation studies show an INR of 1.47 and a PT of 17.8. Her medications include Eliquis on an ongoing basis as well as aspirin 81 mg a day. The patient has been on digoxin, carvedilol, Lasix, and isosorbide mononitrate long-standing. Her son noticed an area in the roof of her mouth that appeared to be possibly bruised or bloody. She has had no hematemesis, hemoptysis, or upper GI bleeding of any sort. Her past medical history in addition to severe peripheral vascular disease includes allergies to shellfish, insulin lispro, bee stings, aripiprazole, clonidine, and gluten. REVIEW OF SYSTEMS: She is able to communicate, but rather poorly as she has an expressive aphasia at this time. Her son provides much of her history for me at this time as to medical records. PHYSICAL EXAMINATION: GENERAL: Pleasant white woman who does appear to be alert and cognizant of my questions. VITAL SIGNS: Temperature is 97.8, pulse 81, and blood pressure 149/78. NECK: Trachea is midline. CHEST: No sign of tachypnea. HEART: Regular mechanical heart sounds are noted consistent with aortic valve Electronically Signed By: RAMANDEEP JUÁREZ MD 07/09/24 0747 PATIENT NAME: TERRELL BECERRIL [place] CONSULTATION DATE OF : 47 REPORT #: [id number] PHYSICIAN: RAMANDEEP JUÁREZ MD PCP: COSMO WALLER MD REPORT IS CONFIDENTIAL AND NOT TO BE RELEASED WITHOUT AUTHORIZATION [address] [address] Signed replacement. ABDOMEN: Soft and nontender and nondistended. I detect no ascites. LABORATORY DATA: Post transfusion, hematocrit was 27.6, earlier in the morning 19.9. Platelet count is 179,000. Chem profile shows a creatinine of 0.98. Toxicology lab shows digoxin level 1.0. Other serologic tests show C difficile to be negative as regard to C difficile 027/NAP1/BI, but positive regarding C difficile toxin PCR test. She does have a C difficile GDH antigen positive finding and C difficile toxin A and B EIA considered negative. ASSESSMENT: She has a Emily-en-Y gastric bypass for which endoscopic evaluation in the past has shown typical anatomy. She has no hemoptysis or hematemesis so far as can be told. Although, consideration is made for upper endoscopy to characterize the source of her bleeding, in the face of an acute cerebrovascular accident or other large vessel occlusive or not, it is a particularly high risk timeframe even for innocuous procedure such as upper endoscopy. She may be better managed by simple presumptive treatment with PPI medication as appropriate and/or Carafate. The possibility of a bleeding source of the colon in my view would be at higher than the upper source, particularly as she has had surveillance of that area in the past. Review of the operative report from Dr. Jane, October 15, 2023, confirmed a Emily-en-Y gastric bypass anatomy but no sign of bleeding or lesion to account for hemorrhage at this time. I think right now holding against the endoscopy and colonoscopy would be appropriate in this condition of her acute cerebrovascular event, though plans could be modified if persistent bleeding is noted. It is quite clear that if she has had no bleeding in the past 24 hours, then her hematocrit appears to be stable. She would be a poor surgical candidate for almost any operative intervention at this time. Although, an endoscopic one for control of hemorrhage might be possible (if such a lesion was identified). I will review this with Dr. Sam. MD LEIDY Norman/CALLI /[id number] Electronically Signed By: RAMANDEEP JUÁREZ MD 07/09/24 0747 PATIENT NAME: TERRELL BECERRIL [place] CONSULTATION DATE OF : 47 REPORT #: [id number] PHYSICIAN: RAMANDEEP JUÁREZ MD PCP: COSMO WALLER MD REPORT IS CONFIDENTIAL AND NOT TO BE RELEASED WITHOUT AUTHORIZATION [facility] [address], [place] [address] Signed cc: Dr. Sam Copies: ~ Electronically Signed By: RAMANDEEP JUÁREZ MD 07/09/24 0747 PATIENT NAME: TERRELL BECERRIL [place] CONSULTATION DATE OF : 47 REPORT #: [id number] PHYSICIAN: RAMANDEEP JUÁREZ MD PCP: COSMO WALLER MD REPORT IS CONFIDENTIAL AND NOT TO BE RELEASED WITHOUT AUTHORIZATION
[2024-07-09] MEDS ORDERED: MAGNESIUM SULFATE 2 GM/50 ML BAG IV ONE (09:00)
[2024-07-09] MEDS ORDERED: carvediloL 6.25 MG TAB PO SCH (09:00)
--- NOTE | 2024-07-09 09:59 | NUR ---
PT ATTEMPTS BED OUT OF BED. OFFERED RECLINER, ACCEPTS. PT UP TO RECLINER WITH 1 PA, AMBULATES WITH STEADY GAIT TO RECLINER. PT SITS UP IN RECLINER, MEAL OFFERED. PT ASKS FOR JUICE, CRANBERRY JUICE ON TRY OFFERED, PT ABLE TO DRINK THIS HER SELF WITH A STRAW. PT TAKES AM MEDICATIONS WITH APPLE SAUCE, TOLERATES THIS WELL. PHYSICAL ASSESSMENT COMPLETE. PT WAS OFFERED HER DENTURES, DECLINER BUT LATERS SPEAKS OUT, "DENTURES" SEVERAL TIMES. WHEN OFFERED HER DENTURES SHE DECLINER AGAIN. PHYSICAL THERAPY NOW IN ROOM WORKING WITH PT.
--- NOTE | 2024-07-09 12:01 | NUR ---
PT SITS UP IN RECLINER. LUNCH OFFERED. PT REFUSES. WILL SIP BEVERAGES.
--- NOTE | 2024-07-09 12:06 | NUR ---
CHOCOLATE ENSURE PROVIDED, PT AGREEABLE TO TRY IT. RESPONDS, "YES" WHEN ASKED IF IT IS GOOD.
--- NOTE | 2024-07-09 13:07 | NUR ---
PT RESTS IN RECLINER, AWAKE, VISITS WITH SOME IN ROOM. CHAIR ALARM ON. CALL LIGHT IN REACH.
[2024-07-09 13:08] LABS: BASOPHILS 0.7 % (0-2); EOSINOPHILS 0.4 % (0-6); HEMATOCRIT 25.2 % (35.0-50.0); HEMOGLOBIN 8.5 g/dL (12.0-18.0); LYMPHOCYTES 10.4 % (24-44); MCHC 33.6 g/dl (30-36); MCV 89.4 fl (81-99); MONOCYTES 4.7 % (0-12); NEUTROPHILS 83.8 % (39-80); PLATELET COUNT 194 K/uL (140-440); RBC 2.82 M/ul (4.3-5.7); RDW 18.3 (10.5-15.0)
[2024-07-09 13:54] LABS: OCCULT BLOOD, FECAL IA INTERP Positive (())
--- NOTE | 2024-07-09 14:36 | NUR ---
PT RESTS IN RECLINER, DROWSY. CHAIR ALARM ON. SON IN ROOM. NO REQUESTS AT THIS TIME.
--- NOTE | 2024-07-09 15:21 | NUR ---
PT BACK TO BED VIA 1 PERSON ASSIST WITH FWW. ISA TAN DONMIRANDA, MALINDA CARE PROVIDED, THICK BARRIER CREAM PASTE APPLIED OVER BUTTOCKS. NO BM. CATHETER WORKING WELL, NO LEAKING. PT RESTS IN BED WITH EYES CLOSED, RESP EVEN AND UNLABORED. SCD'S TO BLE. BED LOCKED IN LOW POSITION, BED RAILS UP X4, BED ALARM ON. CALL LIGHT IN REACH.
--- NOTE | 2024-07-09 17:36 | NUR ---
BED ALARM ALARMING, PT ATTEMPTING TO CRAWL OUT OF BED. PT UNABLE TO COMMUNICATE NEEDS. PT ANSWERS, " YES" WHEN OFFERED TO SIT IN RECLINER. PT TO RECLINER WITH 1 PERSON ASSIST. BLE ELEVATED, CALL LIGHT IN REACH. DINNER OFFERED TO PT, MULTIPLE ATTEMPTS, PT DECLINES.
--- NOTE | 2024-07-09 18:09 | NUR ---
PT REFUSES VANCOMYCIN AND TUMPS UPON MULTIPLE ATTMEPTS. PT AGREEABLE TO EAT SUGAR FREE VANILLA PUDDING. FEEDS SELF THREE BITES, REFUSES ANY FURTHER FOOD. PT ATTEMPTS TO GET OUT OF RECLINER MULTIPLE TIMES, WHEN ASK IS SHE NEEDS ANY THING OR WHERE SHE IS GOING, PT DOES NOT GIVE AN ANSWER. PT AGREEABLE TO GOING ON A WALK. PT AMBULATES IN ROOM AND A SHORT DISTANCE IN THE HALLWAY WITH 1 PERSON ASSIST AND FWW. PT BACK TO RECLINER, BLE ELEVATED. CALL LIGHT IN [facility], CHAIR ALARM ON. MEDICATION OFFERED AGAIN, PT REFUSES. PT WATCHES TV.
--- NOTE | 2024-07-09 18:28 | NUR ---
OFFERED CRANBERRY JUICE TO PT, PT ACCEPTS AND DRINKS IT ON HER OWN.
--- NOTE | 2024-07-09 18:44 | NUR ---
VANCOMYCIN RE-OFFERED TO PT WITH SON PRESENT. PT ACCEPTS.
--- NOTE | 2024-07-09 19:15 | NUR ---
RECEIVED REPORT FROM AM RN. PT IN RECLINER, WITH SON SITTING NEXT TO HER. INTRODUCED SELF TO TERRELL, (PT KNOWS MY SISTER). AFTER THIS RN, LEFT ROOM, SON STATED THAT HIS MOM STARTED ASKING FOR "CARMONA", WHICH IS THE CORRECT LAST NAME. NO NEEDS AT THIS TIME.
[2024-07-09] MEDS ORDERED: QUETIAPINE FUMARATE 25 MG TAB PO ONE (20:00)
--- NOTE | 2024-07-09 21:08 | NUR ---
ASSESSMENT COMPLETED. BENIGN, WITH EXCEPTION OF MEMORY, UNCHANGED FROM REPORT FROM DAYSHIFT. QUESTIONS ASK TO PT, SHE LOOKS AT SON ADRIANNA FOR ANSWERS. FOLLOWS SIMPLE COMMANDS. POC TO PT SON, WELL PT. WHALEY WITH KRISTI URINE.
--- NOTE | 2024-07-09 22:15 | NUR ---
IV ANTIBIOTIC INFUSING, WAS ABLE TO TAKE THE PO ANTIBIOTIC IN APPLESAUCE. ABLE TO MOVE MEDICATION AROUND TO SWALLOW, SLOWLY, DID HOLD THE WATER, ABLE TO DIRECT STRAW INTO MOUTH, HOWVER, VERY SLOW. SEVERAL SWALLOWS FOR MEDICATION TO BE SWALLOWED. SON LEFT ROOM AT 2135; STATED THAT HIS MOM WAS FALLING ASLEEP, BUT SAID NO TO GETTING INTO THE BED. WHEN SUGGESTED TO GET INTO BED DUE TO HER BEING SLEEPY, SHE AGREED, TRIED TO GET IN A POSITION TO GET UP. THIS RN USED GAIT BELT, HOWEVER PT TOO SLEEPY TO STAND. WITH ASSIST OF CATTLE MANAGER AND INCREASE CUEING, PT TO BED, PREFERED AND TURNED SELF TO HER RIGHT SIDE. SCD'S IN PLACE, WHALEY WITH SMALL AMOUNT URINE IN CATH, AND TUBING. ATTENDS NOT WET, CATH NOT KINKED. WARM BLANKET PROVIDED. PLACED CPOX PT USUALLY USES CPOX AT HOME. ON ROOM AIR, SATS 95-99. CALL LIGHT WITHIN REACH, GARBAGES EMPTIED.
--- NOTE | 2024-07-09 23:07 | NUR ---
ROUND ON PT. PT CONTINUES TO LAY ON RIGHT SIDE, RESP 18, CPOX READING 02 at 96%. TELE READING SR at 65. BED ALARM CONTINUES.
--- NOTE | 2024-07-09 23:30 | NUR ---
NEW BAG IV LR SCANNED, INFUSING. IV TUBING CHANGED. PT OPENED EYES WHEN HER NAME WAS CALLED, BUT THEN CLOSED EYES.
[2024-07-10] VITALS (10 sets, daily range): BP systolic 114–163; BP diastolic 35–80
--- NOTE | 2024-07-10 02:20 | NUR ---
VS COMPLETED. PT WOKE TO STIMULUS, NO WORDS SPOKEN, LOOKS AT STAFF, BUT MOVES ARMS TOWARD STAFF, SL MOANING. PULLS LEGS AWAY, TRYING TO STAY ON HER RIGHT SIDE. DID BLADDER SCAN, D/T LOW URINE OUTPUT. ABD SOFT, LESS THAN 2ML NOTED. ATTENDS DRY. NO BM THIS SHIFT UP TO THIS TIME. SKIN WARM AND DRY. AFEBRILE. IV SITE LFA WNL. ATTEMPTED TO ASSESS NEURO'S, BUT PT NOT ANSWERING, JUST CLOSES EYES. NO RESP DISTRESS NOTED. PT CONTINUES ON WAFFLE MATTRESS. LEFT ARM STRONG, PUSHES STAFF HAND AWAY. TELE, CPOX AND SCD'S CONTINUE IN PLACE. BED ALARM IN PLACE.
--- NOTE | 2024-07-10 03:22 | NUR ---
ROUNDED ON PT. RESP EVEN AND UNLABORED. SKIN WARM DRY. CPOX READING 96% RA; HR VIA TELE @70.
--- NOTE | 2024-07-10 04:21 | NUR ---
ROUNDED ON PT. IV WNL. PT STIRRED WHEN ASSESSING IV SITE, BUT DID NOT OPEN EYES. SKIN WARM AND DRY. RESP EVEN AND UNLABORED.
--- NOTE | 2024-07-10 05:02 | NUR ---
ROUNDED ON PT. PT WITH EYES CLOSED, RESP EVEN AND UNLABORED. SKIN WARM AND DRY, CPOX READING 96% RA.
[2024-07-10] MEDS ORDERED: CEFEPIME HCL 1 GM VIAL ONE (05:23)
[2024-07-10 05:42] LABS: BASOPHILS 0.8 % (0-2); EOSINOPHILS 2.3 % (0-6); HEMATOCRIT 21.9 % (35.0-50.0); HEMOGLOBIN 7.4 g/dL (12.0-18.0); LYMPHOCYTES 25.5 % (24-44); MCH 30.2 (27-36); MCHC 33.6 g/dl (30-36); MCV 89.9 fl (81-99); MONOCYTES 8.2 % (0-12); NEUTROPHILS 63.2 % (39-80); PLATELET COUNT 158 K/uL (140-440); RBC 2.44 M/ul (4.3-5.7); RDW 18.3 (10.5-15.0)
[2024-07-10 05:59] LABS: ALBUMIN 2.2 g/dL (3.4-5.0); ALBUMIN/GLOBULIN RATIO 0.81 (1.1-2.4); ANION GAP 14.5 (7-21); BILIRUBIN, TOTAL 0.5 mg/dL (0.2-1.0); BUN/CREATININE RATIO 15.47 (6.0-28.6); CREATININE, SERUM 0.84 mg/dL (0.55-1.02); MAGNESIUM 1.8 mg/dL (1.8-2.4); PHOSPHORUS, INORGANIC 2.4 mg/dL (2.5-4.9); POTASSIUM 3.5 mmol/L (3.5-5.1); PROTEIN, TOTAL 4.9 g/dL (6.4-8.2)
--- NOTE | 2024-07-10 06:14 | NUR ---
PT REMAINED WITH COGNITIVE IMPAIRMENT THIS SHIFT. UNABLE TO ANSWER COGNITIVE QUESTIONS THIS SHIFT. WHEN SON PRESENT, SHE RELIED ON HIM TO SPEAK. ABLE TO FOLLOW SIMPLE COMMANDS. CPOX PRESENT SATS ON RA REMAINED IN THE 90'S. TELE WITH READINGS IN THE HIGH 50'S TO 70'2 THIS SHIFT. ABLE TO TURN SELF IN BED, PREFERED RIGHT SIDE, ALTHOUGH THIS AM, SHE TURNED SELF TO LEFT SIDE. WAKES TO NOISE, WHEN ASKED IF SHE IS IN PAIN SHE SAID NO. RECEIVED 25 MG SEROQUEL THIS SHIFT. NOTED NO BEHAVIORS THIS SHIFT, CARES PROVIDED, NO ATTEMPT TO LEAVE BED, OR CHAIR. BED ALARM REMAINED ON. WHALEY WITH KRISTI, SL CONCENTRATED URINE. PUFFINESS RIGHT HAND UNCHANGED THIS SHIFT. ATTEMPTED TO GIVE THYROID MEDICATION, PT LET PILL SIT IN MOUTH, ATTEMPTS TO CUE TO SWALLOW WERE UNSUCCESSFUL. PT WOULD OPEN EYES WHEN SPOKEN TO, BUT THEN CLOSE AND LAY BACK.
--- NOTE | 2024-07-10 06:30 | NUR ---
PATIENT RESPONDED WHEN CALLED HER NAME AND TOLD THAT 2 STAFF WILL REPOSITION HER. WHALEY EMPTIED AND CHARTED. PATIENT COOPERATED DURING PROCEDURE. BED ALARM ON FOR SAFETY.
--- NOTE | 2024-07-10 07:25 | NUR ---
VERBAL REPORT RECEIVED FROM SOO QUINONEZ. PT RESTS IN BED WITH EYES CLOSED, RESP EVEN AND UNLABORED.
--- NOTE | 2024-07-10 09:19 | NUR ---
PT RESTS IN BED WITH EYES CLOSED, RESP EVEN AND UNLABORED, SPO2 95% ON RA.
--- NOTE | 2024-07-10 10:06 | NUR ---
IN TO SPEAK WITH PATIENT, SHE IS SLEEPING IN BED. DOES NOT WAKE. LIKELY PLAN SNF PLACEMENT. WILL CALL HER SON THIS MORNING TO DISCUSS PATIENT CHOICES OF FACILITIES FOR SNF.
--- NOTE | 2024-07-10 10:33 | NUR ---
SPOKE WITH SON, ADRIANNA. [facility] PREFERS [facility] FOR SNF FIRST CHOICE, SECOND IS [facility] OR [facility]. WILL FAX REFERRAL THIS AM TO FACILITIES FOR SNF.
--- NOTE | 2024-07-10 10:40 | NUR ---
PT DROWSY, DOES NOT PARTICIPATE WELL IN ASSESSMENT DUE TO DROWSINESS. PT LEAVES UNIT VIA BED, ESCORTED TO PROCEDURE BY IMAGING STAFF.
--- NOTE | 2024-07-10 10:59 | NUR ---
SNF REFERRAL FAXED TO [facility] AND [facility] [place].
[2024-07-10] MEDS ORDERED: propofoL 200 MG/20 ML VIAL ONE (11:26)
[2024-07-10] MEDS ORDERED: LIDOCAINE HCL 2% 5 ML SDV ONE (11:26)
--- NOTE | 2024-07-10 11:57 | NUR ---
EKG COMPLETE. PT ROUSES DURING PROCEDURE, CONFUSED. ATTEMPTS TO GET OUT OF BED, SEVERAL TIMES. SOO CORLEY AT BEDSIDE.
[2024-07-10] MEDS ORDERED: LORazepam 2 MG/ML VIAL ONE (12:06)
[2024-07-10] MEDS ORDERED: LORazepam 2 MG/ML VIAL IV ONE ×2 (12:30→22:30)
--- NOTE | 2024-07-10 12:30 | NUR ---
PT LEAVES UNIT VIA GURNEY TO SURGICAL PROCEDURE.
[2024-07-10] MEDS ORDERED: ePHEDrine sulfate 50 MG/ML AMP ONE (13:32)
--- NOTE | 2024-07-10 13:52 | NUR ---
07/10/24 4818 Veda Portillo PATIENT WAKES SUDDENLY. SHE FOLLOWS INSTRUCTIONS TO OPEN HER MOUTH. ORAL AIRWAY IS REMOVED. SHE DENIES PAIN. HOB IS ELEVATED. NC ON 4L IN MOUTH.
[2024-07-10] MEDS ORDERED: PANTOPRAZOLE SODIUM 40 MG/10 ML VIAL IV SCH (14:06)
--- NOTE | 2024-07-10 14:22 | NUR ---
PT RETURNS TO MED-SURG FROM ENDOSCOPY. VERBAL REPORT RECEIVED FROM SOO PARRY. PT ROUSES TO VOICE, RESP EVEN AND UNLABORED ON RA, CPOX IN PLACE, SPO2 99%. SCD'S APPLIED TO BLE. VSS. BED IN LOW POSITION, RAILS UP X4. BED ALARM ON. LUNGS CLEAR, HRR, BT X4 ACTIVE. NO APPARENT NEEDS AT THIS TIME.
[2024-07-10 14:31] LABS: BASOPHILS 0.8 % (0-2); HEMATOCRIT 23.7 % (35.0-50.0); HEMOGLOBIN 7.9 g/dL (12.0-18.0); LYMPHOCYTES 17.6 % (24-44); MCH 30.4 (27-36); MCHC 33.3 g/dl (30-36); MCV 91.2 fl (81-99); MONOCYTES 6.2 % (0-12); NEUTROPHILS 73.4 % (39-80); PLATELET COUNT 168 K/uL (140-440); RDW 19.1 (10.5-15.0)
--- NOTE | 2024-07-10 15:33 | NUR ---
Rounding on patient. Patient is in a deep sleep. Call light has been placed within reach
--- NOTE | 2024-07-10 15:47 | NUR ---
LÁZARO FROM [facility] NOTIFIES THIS NURSE THEY CAN ACCEPT PATIENT TO THEIR FACILITY WHEN SHE IS MEDICALLY CLEARED. RN NOTIFIED. CALLED AND LEFT MESSAGE FOR ADRIANNA. NOTIFIED OF ACCEPTANCE TO [facility] AND NOTIFIED SHE WILL NEED CLOTHING, SHOES AND TOILETRIES. REQUEST A CALL BACK TO DISCUSS TRANSPORTATION TO FACILITY FOR DISCHARGE.
[2024-07-10] MEDS ORDERED: SUCRALFATE 1 GM TAB PO SCH (16:00)
--- NOTE | 2024-07-10 16:32 | NUR ---
PT RESTS IN BED WITH EYES CLOSED, RESP EVEN AND UNLABORED, CPOX ON, SPO2 93%.
--- NOTE | 2024-07-10 17:39 | EKG ---
[facility] [address] [facility] [address] [facility] [place] [address] Signed Normal sinus rhythm ST \T\ T wave abnormality, consider inferior ischemia ST \T\ T wave abnormality, consider anterolateral ischemia Abnormal ECG When compared with ECG of 06-JUL-2024 08:33, premature atrial complexes are no longer present Confirmed by Martina Galdamez DO ([id number]) on 07/10/2024 5:39:02 PM Electronically Signed By: MARTINA GALDAMEZ DO 07/10/24 1739 PATIENT NAME: TERRELL BECERRIL [place] Electrocardiogram DATE OF : 47 PHYSICIAN: MARTIAN GALDAMEZ DO REPORT #: [id number] REPORT IS CONFIDENTIAL AND NOT TO BE RELEASED WITHOUT AUTHORIZATION
--- NOTE | 2024-07-10 18:10 | NUR ---
PT CONTINUES TO BE DROWSY, ROUSES TO VOICE, DOES NOT FOLLOW COMMANDS WELL. UNABLE TO RECEIVED PO MEDICATIONS, DR. GALDAMEZ NOTIFIED.
--- NOTE | 2024-07-10 18:11 | NUR ---
RESP EVEN AND UNLABORED, CPOX IN PLACE, SPO2 94%, HRR, LUNGS CLEAR. SCD'S TO BLE. WHALEY DRAIN CLEAR YELLOW URINE.
--- NOTE | 2024-07-10 19:25 | NUR ---
RECEIVED REPORT FROM RAY RAMIRES RN. PT YELLING OUT, INCOHERENTLY. UNABLE TO REDIRECT. CONFUSED.
--- NOTE | 2024-07-10 20:00 | NUR ---
CERTIFIED NURSES' AIDE SITTING AT BEDSIDE DUE TO PT CONFUSION. CERTIFIED NURSES' AIDE GOT THE OTHER CERTIFIED NURSES' AIDE TO HELP CLEAN UP A BM. WE CHANGED THE DRAW SHEET, GOWN AND DID MALINDA/CATH CARE. THIS CERTIFIED NURSES' AIDE LEFT ROOM WHEN PT'S FAMILY MEMBER ARRIVED TO SIT WITH PT.
--- NOTE | 2024-07-10 20:02 | NUR ---
REPORT RECEIVED. PT LYING IN BED ON LEFT SIDE. EYES CLOSED. PT MOANING AND CRYING OUT. GRANDDAUGHTER AT BEDSIDED TO COMFORT PATIENT. FAMILY DENIES NEEDS. WHITE BOARD UPDATED. CALL LIGHT IN REACH.
[2024-07-10] MEDS ORDERED: CEFDINIR 300 MG CAP PO SCH (21:00)
--- NOTE | 2024-07-10 21:15 | NUR ---
MD RETURNED PRIMARY RN PHONE CALL. PRIMARY RN IN ROOM. UPDATED MD ON PATIENT STATUS. RECEIVED VERBAL ORDER VERIFIED ORDER USING REPEATBACK METHOD.
[2024-07-10] MEDS ORDERED: CEFTRIAXONE SODIUM 1 GM in SODIUM CHLORIDE 0.9% 100 ML IV ONE (22:30)
[2024-07-10] MEDS ORDERED: CEFTRIAXONE SODIUM 1 GM VIAL IV ONE (22:34)
--- NOTE | 2024-07-10 23:03 | NUR ---
EVENING ASSESSMENT COMPLETE. SON AND THIS RN ATTEMPTED MULTIPLE TIMES TO GET PT TO TAKE A SIP OF WATER WITH NO SUCCESS. PO MEDS HELD DUE TO SAFETY CONCERNS. PT ABLE TO ANSWER SOME YES/NO QUESTIONS. PT UNABLE TO ANSWER ORIENTATION QUESTION. PT RESTLESS AND THRASHING IN BED. PRN FOR AGITATION GIVEN PER SON REQUEST. ORAL CARE DONE. WHALEY PATENT WITH YELLOW URINE. VS AND I&O OBTAINED. WARM BLANKET PROVIDED. PT SON AT BEDSIDE. DENIES QUESTIONS OR CONCERNS. CALL LIGHT IN REACH. BED ALARM FOR SAFETY.
[2024-07-11] VITALS (9 sets, daily range): BP systolic 112–209; BP diastolic 43–61
--- NOTE | 2024-07-11 00:29 | NUR ---
PT LYING IN BED ON LEFT SIDE WITH EYES CLOSED. RESPIRATIONS EVEN. CALL LIGHT IN REACH. BED ALARM FOR SAFETY.
--- NOTE | 2024-07-11 01:30 | NUR ---
PT RESTING IN BED WITH EYES CLOSED. RESPIRATIONS EVEN. BED ALARM FOR SAFETY. CALL LIGHT IN REACH.
--- NOTE | 2024-07-11 02:11 | NUR ---
ASSISTED PT TO REPOSITION IN BED. WARM BLANKET PROVIDED. PT MOVED TO ROOM 120 FOR CLOSER OBSERVATION WITH ALL BELONGINGS IN TOW. BED ALARM IN PLACE. CALL LIGHT IN REACH.
--- NOTE | 2024-07-11 02:53 | NUR ---
PT LYING ON RIGHT SIDE IN BED RESTING WITH EYES CLOSED. SpO2 96% ON RA. HR 60'S. BED ALARM IN PLACE. PT IN VIEW OF NURSES STATION.
[2024-07-11 05:38] LABS: EOSINOPHILS 3.1 % (0-6); HEMATOCRIT 22.8 % (35.0-50.0); HEMOGLOBIN 7.8 g/dL (12.0-18.0); MCH 30.4 (27-36); MCHC 34.1 g/dl (30-36); MONOCYTES 8.1 % (0-12); NEUTROPHILS 69.8 % (39-80); PLATELET COUNT 148 K/uL (140-440); RBC 2.56 M/ul (4.3-5.7)
[2024-07-11 05:55] LABS: ALBUMIN 2.2 g/dL (3.4-5.0); ALBUMIN/GLOBULIN RATIO 0.88 (1.1-2.4); ANION GAP 12.3 (7-21); BILIRUBIN, TOTAL 0.5 mg/dL (0.2-1.0); BUN/CREATININE RATIO 12.82 (6.0-28.6); CREATININE, SERUM 0.78 mg/dL (0.55-1.02); MAGNESIUM 1.6 mg/dL (1.8-2.4); PHOSPHORUS, INORGANIC 2.3 mg/dL (2.5-4.9); POTASSIUM 3.3 mmol/L (3.5-5.1); PROTEIN, TOTAL 4.7 g/dL (6.4-8.2)
--- NOTE | 2024-07-11 06:43 | NUR ---
VS AND I&O OBTAINED. PER WASH WORKER PT INCONTINENT OF SMEAR BLACK "PASTY" BM. MALINDA CARE DONE AND CLEAN ATTENDS IN PLACE. ASSISTED PT TO REPOSITION IN BED. WARM BLANKET PROVIDED. BED ALARM FOR SAFETY. CALL LIGHT IN REACH.
--- NOTE | 2024-07-11 07:14 | NUR ---
VERBAL REPORT RECEIVED FROM SOO VILLASEÑOR. PT RESTS IN BED WITH EYES CLOSED, RESP EVEN AND UNLABORED. CPOX IN PLACE, SPO2 92%.
[2024-07-11] MEDS ORDERED: POTASSIUM PHOSPHATE 30 MMOL in DEXTROSE 5% 500 ML IV ONE (07:45)
[2024-07-11] MEDS ORDERED: MAGNESIUM SULFATE 2 GM/50 ML BAG IV ONE (07:45)
[2024-07-11] MEDS ORDERED: CEFTRIAXONE SODIUM 1 GM VIAL IV ONE (08:04)
--- NOTE | 2024-07-11 08:21 | NUR ---
Hourly rounding. Board has been updated
[2024-07-11] MEDS ORDERED: AMLODIPINE BESYLATE 5 MG TAB PO SCH (09:00)
[2024-07-11] MEDS ORDERED: APIXABAN 5 MG TAB PO SCH (09:00)
[2024-07-11] MEDS ORDERED: CEFTRIAXONE SODIUM 1 GM in SODIUM CHLORIDE 0.9% 100 ML IV SCH (09:00)
--- NOTE | 2024-07-11 09:10 | NUR ---
PT RESTLESS, ATTEMPTS TO GET OUT OF BED SEVERAL TIMES. PT ASSISTED TO RECLINER. RENETTA ALMANZA IN WITH PT FOR 1-1 OBSERVATION FOR SAFETY. OFFERED APPLE SAUCE SEVERAL TIMES, PT TOOK ONE BITE AND THEN REFUSED ANY FURTHER ATTEMPTS. PT REPEATS, "ARM" OR "HEAD" "HURT". VERBAL COMMUNICATION UPON ASSESSMENT OF THESE AREAS IS INCONSISTENT. WHEN ASKED DOES THIS HURT THE RESPONSE IS SOME TIME, "YES" AND OTHER "NO". PT CURRENTLY RESTING IN RECLINER. INTERMITTENT ATTEMPTS TO GET OUT OF RECLINER. RENETTA ALMANZA REMAINS WITH PT.
--- NOTE | 2024-07-11 09:18 | NUR ---
TRIED TO CONVINCE PATIENT TO TAKE A TYLENOL, PATIENT REFUSED TO SWALLOW.
--- NOTE | 2024-07-11 09:27 | NUR ---
PATIENT IN BED AT THIS TIME. THIS REGIONAL CRA AND RN EULALIO ASSISTED PATIENT FROM GETTING TO THE BED FROM THE CHAIR. SPEECH THERAPY IN AT THIS TIME. CALL LIGHT WITHIN REACH, NO FURTHER NEEDS AT THIS TIME.
--- NOTE | 2024-07-11 09:35 | NUR ---
PATIENT ALERT IN RECLINER. REMAINS DISORIENTED. PLAN TO DC TO [facility] WHEN MEDICALLY CLEARED. LIKELY WEDNESDAY OR WEDNESDAY.
--- NOTE | 2024-07-11 09:44 | NUR ---
PATIENT IN BED AT THIS TIME. UPHOLSTERY REPAIRER CHARTED VITALS AND I&O'S. CALL LIGHT WITHIN REACH, NO FURTHER NEEDS AT THIS TIME.
[2024-07-11] MEDS ORDERED: POTASSIUM CHLORIDE 20 MEQ in DEXTROSE 5% 250 ML IV ONE (10:00)
[2024-07-11] MEDS ORDERED: LIDOCAINE HCL 4% 1 EACH PATCH TD SCH (10:13)
--- NOTE | 2024-07-11 10:25 | NUR ---
PHYSICAL THERAPY WORKS WITH PT IN ROOM.
--- NOTE | 2024-07-11 11:03 | NUR ---
UPDATE FAXED TO [facility].
--- NOTE | 2024-07-11 11:17 | NUR ---
VISITED DURING SPIRITUAL CARE ROUNDS. PT SUPPORTED BY SON IN ROOM. PT CONFUSED BUT RECOGNIZED ME. SEEMS TO BE LOST IN TIME, TALKING OF PEOPLE DANCING. SON SUPPORTIVE, EXPRESSED EMOTIONS CONSISTENT WITH SITUATION. SENIOR BUSINESS CONSULTANT EXPRESSED SUPPORTIVE PRESENCE, HOSPITALITY, PRAYER. SON EXPRESSED GRATITUDE.
--- NOTE | 2024-07-11 11:22 | NUR ---
RE-ATTEMPTED AM MEDICATION ADMINISTRATION WITH SON ADRIANNA PRESENT. PT ACCEPTS MEDICATION FROM ADRIANNA IN APPLE SAUCE. PT IS MORE VERBAL AT THIS TIME. RESPONDS IN SHORT SENTENCES AND IS ABLE TO SPONTANEOUSLY EXPRESS NEEDS. CONTINUES TO BE ORIENTED TO SELF ONLY.
--- NOTE | 2024-07-11 13:59 | NUR ---
PATIENT IS SLEEPING COMFORTABLY. 20MEQ IV KCL INFUSING FOR 2 HOURS.
--- NOTE | 2024-07-11 15:20 | NUR ---
CALLED [facility] ABOUT NOT HAVING A DIET ORDER. ALDO GAVE VERBAL TO DO BEDSIDE ASSESSMENT AND USE BEST JUDGEMENT BASED ON HOW SHE TOLERATES THE INTAKE. AFTER DISCUSSING WITH PT PRIMARY NURSE SOO RAMIRES PT AGREED TO CONTIUNE PRIOR DIET PT IS BECOMING MORE ALERT.
--- NOTE | 2024-07-11 15:55 | NUR ---
PT WAS ABLE TO TAKE PILLS WITH APPLESAUCE WITHOUT DIFFICULTY WITH A COUPLE SIPS OF ENSURE.
--- NOTE | 2024-07-11 16:32 | NUR ---
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 RADIOLOGIST ALSO REPORTED THAT AN ULTRASOUND WOULD NOT BE USEFUL IN OBTAINING FURTER INFORMATION. US TEST TO BE CANCELLED.
--- NOTE | 2024-07-11 17:19 | NUR ---
PT SITS UP IN RECLINER. SON FEEDS HER DINNER. PT RECEPTIVE OF MEAL.
--- NOTE | 2024-07-11 18:03 | NUR ---
PATIENT IN CHAIR AT THIS TIME. BUSINESS DEVELOPMENT PROFESSIONAL CHARTED VITALS AND I&O'S. CALL LIGHT WITHIN REACH, NO FURTHER NEEDS AT THIS TIME.
--- NOTE | 2024-07-11 19:30 | NUR ---
REPORT RECEIVED FROM DAY SHIFT RN. PT SITTING IN RECLINER WITH EYES CLOSED. RESPIRATIONS EVEN. SON SITTING NEXT TO PATIENT. DENIES NEEDS. WHITE BOARD UPDATED. CALL LIGHT IN REACH.
--- NOTE | 2024-07-11 20:25 | NUR ---
PT SITTING IN RECLINER WITH EYES CLOSED. AWAKENS EASILY. VS OBTAINED. SCHEDULED MEDS ADMIN WITH BITES OF APPLESAUCE AND SIPS OF WATER BY SON. PT RADHA WELL. 2PA WITH FWW TO BED. PT ABLE TO FOLLOW DIRECTIONS AND ANSWER SIMPLE QUESTIONS. EVENING ASSESSMENT COMPLETE. SCD'S IN PLACE. ASSISTED TO REPOSITION FOR COMFORT. NO FURTHER NEEDS. BED ALARM FOR SAFETY. SOB AT BEDSIDE.
[2024-07-11] MEDS ORDERED: LIDOCAINE PATCH REMOVAL 1 EA TD SCH (21:00)
--- NOTE | 2024-07-11 22:33 | NUR ---
2 TECHNICIAN TERMINAL AND REPEATER REPOSITIONED PATIENT LAYING ON HER RIGHT SIDE. WARM BLANKET PROVIDED. BED ALARM ON FOR SAFETY.
--- NOTE | 2024-07-11 23:36 | NUR ---
PT LYING IN BED RESTING WITH EYES CLOSED. RESPIRATIONS EVEN. CALL LIGHT IN REACH. BED ALARM FOR SAFETY. PT IN VIEW OF NURSES STATION.
[2024-07-12] VITALS (16 sets, daily range): BP systolic 78–146; BP diastolic 38–82
--- NOTE | 2024-07-12 00:22 | NUR ---
BED ALARM SOUNDING. PT ATTEMPTING TO GET OUT OF BED WITHOUT ASSISTANCE. PT REPORTS SHE NEEDS TO VOID. REMINDED PT OF WHALEY CATHETER. WHALEY BAG WITH YELLOW URINE. PT RECEPTIVE. ASSISTED TO REPOSITION. NO FURTHER NEEDS. BED ALARM IN PLACE.
--- NOTE | 2024-07-12 01:11 | NUR ---
PER REQUEST OF PRIMARY RN- PROTOCOL ORDER PLACED FOR EKG STAT FOR CHEST PAIN pt REPORTS HER "HEART HURTS". RT SAGAR AWARE AND COMING TO ROOM TO COMPLETE EKG. PRIMARY RN REMAINS AT BEDSIDE.
--- NOTE | 2024-07-12 01:36 | NUR ---
PER REQUEST OF PRIMARY RN-ORDERS FOR TELE AND TROPONIN X1 FOR NOW PLACED-PRIMARY RN IN ROOM PLACING pt ON TELE.
--- NOTE | 2024-07-12 01:42 | NUR ---
IN TO REPOSITION PT. PT REPORTS HER "HEART HURTS." WHEN ASKED IF PAIN IS RADIATING OR PT HAVING DIFFICULTY BREATHING SHE REPLIES "YES." VS OBTAINED, WNL. EKG OBTAINED. NOTIFIED. NEW TELEPHONE ORDERS RECEIVED VERIFIED WITH READBACK METHOD. TELE PLACED PER ORDER. LAB IN ROOM FOR DRAW. PT RESTING QUIETLY IN BED ON LEFT SIDE WITH PILLOWS. BED ALARM IN PLACE. PT IN VIEW OF NURSES STATION.
--- NOTE | 2024-07-12 02:31 | NUR ---
PT RESTING IN BED WITH EYES CLOSED. RESPIRATIONS EVEN. CALL LIGHT IN REACH. BED ALARM IN PLACE.
--- NOTE | 2024-07-12 04:04 | NUR ---
PT PUSHED ALL THE COVERS OFF FROM BEING RESTLESS AND WAS SITTING UP IN BED. BELLMAN DRIVER GOT PT REPOSITIONED ON HER SIDE AND PUT THE BLANKETS BACK ON. PT STATED THAT SHE WAS MORE COMFORTABLE NOT BEING ON HER TAIL BONE.
--- NOTE | 2024-07-12 05:18 | NUR ---
PT STATES "HEAD HURTS" AGREEABLE TO PRN TYLENOL. PILLS CRUSHED AND GIVEN IN BITES OF APPLESAUCE AND SIPS OF WATER. PT MORE ALERT, ORIENTED TO SELF AND PLACE. PT REMEBERING STAFF NAMES AND FACES. APPRECIATIVE OF CARES. 2PA TO REPOSITION IN BED. WARM BLANKET PROVIDED. CALL LIGHT IN REACH. BED ALARM FOR SAFETY.
[2024-07-12 05:39] LABS: BASOPHILS 0.9 % (0-2); EOSINOPHILS 4.4 % (0-6); HEMATOCRIT 24.9 % (35.0-50.0); HEMOGLOBIN 8.3 g/dL (12.0-18.0); LYMPHOCYTES 19.5 % (24-44); MCH 30.1 (27-36); MCHC 33.5 g/dl (30-36); MCV 90.1 fl (81-99); MONOCYTES 8.8 % (0-12); NEUTROPHILS 66.4 % (39-80); PLATELET COUNT 173 K/uL (140-440); RBC 2.77 M/ul (4.3-5.7); RDW 18.7 (10.5-15.0)
--- NOTE | 2024-07-12 05:48 | NUR ---
LAB IN FOR MORNING DRAW. SCHEDULED MEDS ADMIN PER EMAR. ASSISTED PT TO REPOSITION TO LEFT SIDE WITH PILLOWS. NO FURTHER NEEDS. BED ALARM IN PLACE. CALL LIGHT IN REACH.
[2024-07-12 05:49] LABS: ANION GAP 11.5 (7-21); BUN/CREATININE RATIO 7.05 (6.0-28.6); CALCIUM 6.9 mg/dL (8.5-10.1); CREATININE, SERUM 0.85 mg/dL (0.55-1.02); MAGNESIUM 1.7 mg/dL (1.8-2.4); POTASSIUM 3.5 mmol/L (3.5-5.1)
--- NOTE | 2024-07-12 07:22 | EKG ---
[facility] [address] [facility] [place] [address] Signed Sinus rhythm with premature atrial complexes Low voltage QRS ST \T\ T wave abnormality, consider inferior ischemia ST \T\ T wave abnormality, consider anterolateral ischemia Abnormal ECG When compared with ECG of 10-JUL-2024 11:43, premature atrial complexes are now present Confirmed by Licha Melgar MD ([id number]) on 07/12/2024 7:22:09 AM Electronically Signed By: LICHA MELGAR MD 07/12/24 0722 PATIENT NAME: TERRELL BECERRIL [place] Electrocardiogram DATE OF : 47 PHYSICIAN: LICHA MELGAR MD REPORT #: [id number] REPORT IS CONFIDENTIAL AND NOT TO BE RELEASED WITHOUT AUTHORIZATION
[2024-07-12] MEDS ORDERED: POTASSIUM CHLORIDE 10 MEQ TABCR PO ONE (07:30)
[2024-07-12] MEDS ORDERED: MAGNESIUM SULFATE 2 GM/50 ML BAG IV SCH (07:30)
--- NOTE | 2024-07-12 07:34 | NUR ---
RECEIVED REPORT FROM NIGHT RN, PT ATTEMPTING TO GET OUT OF BED THIS MORNIGN POST REPORT, STATES SHE FEELS LIKE SHE NEEDS TO URINATE, REMINDED PATINET SHE HAS WHALEY IN PLACE, WHICH IS DRAINING OUT CLEAR YELLOW URINE AT THIS TIME. IV FLUIDS REMAIN INFUSING PATIENT APPEARS PUFF GENERALZED PUFFINESS. TELEMETRY REMAIN IN PLACE, SR IN THE 70'S PER MONITOR. PT STATES HER CHEST PAIN IS LONGER PRESENT, LAB PRESENT THIS MORNING TO REPEAT TROPONIN LABS. CHAIR ALARM PLACED IN CHAIR AND ASSISTED PT UP FROM BED TO CHAIR, TV TURNED ON AND PT SITTING UP. ALL PT CARE NEEDS MET AT THIS TIME, CALL LIGHT WITHIN REACH.
--- NOTE | 2024-07-12 08:20 | NUR ---
UPDATES FAXED TO [facility]
--- NOTE | 2024-07-12 08:23 | NUR ---
PATIENT GIVEN 4MG OF IV ZOFRAN FOR NAUSEA.
--- NOTE | 2024-07-12 08:46 | NUR ---
PT SITTING UP IN CHAIR AT THIS TIME, TABULATING CLERK HELPING PT EAT BREAKFAST. PT TAKING HER MEDS CURRENTLY IN APPLESAUCE. LIDOCAINE PATCH APPLIED TO LOW BACK/TAILBONE AREA. ALL PT CARE NEEDS MET AT THIS TIME, ALLOWED TO EAT BREAKFAST.
[2024-07-12] MEDS ORDERED: CALCIUM CARBONATE 500 MG CHEW PO ONE (09:00)
[2024-07-12] MEDS ORDERED: carvediloL 6.25 MG TAB PO SCH (09:00)
--- NOTE | 2024-07-12 09:21 | NUR ---
ALERT IN RECLINER. ANSWERS QUESTIONS APPROPRIATELY. INFORMED HER PLAN FOR HER IS TO DC TO [facility] WHEN MEDICALLY STABLE. INFORMED HER HER SON, ADRIANNA, IS ASSISTING WITH HER PLACEMENT IN [facility] BEFORE SHE RETURNS HOME TO [facility]. VERBALIZES UNDERSTANDING, NO QUESTIONS.
--- NOTE | 2024-07-12 09:24 | NUR ---
PATIENT IN CHAIR AT THIS TIME. THIS MECHANICAL MAINTENANCE TECHNICIAN ASSISTED PATIENT WITH FEEDING. PATIENT REQUESTED A GUTHRIE ENSURE, THIS MECHANICAL MAINTENANCE TECHNICIAN CALLED DOWN TO DIETARY AND ASKED THEM TO BRING UP GUTHRIE ENSURES. CALL LIGHT WITHIN REACH, NO FURTHER NEEDS AT THIS TIME.
--- NOTE | 2024-07-12 09:54 | PATH ---
[facility] [address] [facility] [place] [address] Signed SPECIMEN(S): A GASTRIC POUCH BIOPSY SPECIMEN(S): B GASTRIC POUCH ULCER SPECIMEN SOURCE: A. GASTRIC POUCH BIOPSY B. GASTRIC POUCH ULCER CLINICAL HISTORY: Hematocrit 23. Clots. Gastric pouch ulcer. FINAL PATHOLOGIC DIAGNOSIS: A. Gastric pouch biopsy: - Gastric oxyntic mucosa with no significant pathologic changes - Negative for Helicobacter pylori with HE stains B. Gastric pouch ulcer: - Fragments of ulcer debris and duodenal mucosa with no significant pathologic changes BRP MICROSCOPIC EXAMINATION: Histologic sections of all submitted blocks are examined by light microscopy. These findings, together with the gross examination, support the pathologic diagnosis. GROSS DESCRIPTION: A. The specimen, labeled and designated "Clarita, gastric pouch biopsy," is received in formalin and consists of two foreman soft tissue fragments, ranging from 0.3 cm. Entirely submitted in (A1). B. The specimen, labeled and designated "Pedronert, gastric pouch ulcer," is received in formalin and consists of four foreman soft tissue fragments, ranging from 0.1-0.3 cm. Entirely submitted in (B1). JS (under the direct supervision of a pathologist) The Gross Description was prepared using a voice recognition system. The report was reviewed for accuracy; however, sound-alike word errors, addition and/or deletions may occur. If there is any question about this report, please contact Client Services. ADDITIONAL NOTES: Immunohistochemical and/or in situ hybridization studies if performed in this case included appropriate positive controls that reacted as expected. This test was developed and its performance PATIENT NAME: TERRELL BECERRIL PATHOLOGY DATE OF : 47 REPORT #: [id number] PHYSICIAN: SUSAN BRANDT PCP: COSMO WALLER MD REPORT IS CONFIDENTIAL AND NOT TO BE RELEASED WITHOUT AUTHORIZATION [address] [place], [place] [address] Signed characteristics determined by [facility]. It has not been cleared or approved by the U.S. Food and Drug Administration. The FDA has determined that such clearance or approval is not necessary. This test is used for clinical purposes. It should not be regarded as investigational or for research. [facility] is certified under the Clinical Laboratory Improvement Amendments of 1988 (CLIA) as qualified to perform high complexity clinical laboratory testing. PERFORMING LABORATORY: Technical component was performed by [facility], [address] [place] [address] (CLIA# [id number]). Professional interpretation was performed by [facility], [address] [place] [address] (CLIA#: [id number]). Diagnostician: Michael Francis MD Pathologist Electronically Signed 07/12/2024 Copies: ~ PATIENT NAME: TERRELL BECERRIL PATHOLOGY DATE OF : 47 REPORT #: [id number] PHYSICIAN: SUSAN PATHOLOGY PCP: COSMO WALLER MD REPORT IS CONFIDENTIAL AND NOT TO BE RELEASED WITHOUT AUTHORIZATION
--- NOTE | 2024-07-12 10:01 | NUR ---
PATIENT IN CHAIR AT THIS TIME. THIS TILE GRINDER CHARTED VITALS AND I&O'S. CALL LIGHT WITHIN REACH, NO FURTHER NEEDS AT THIS TIME.
--- NOTE | 2024-07-12 10:02 | NUR ---
VISITED DURING SPIRITUAL CARE ROUNDS. PT APPEARED TO BE SLEEPING. DID NOT DISTURB. PROVIDED PRAYER.
--- NOTE | 2024-07-12 10:25 | NUR ---
PT SON(ADRIANNA) CALLED FOR UPDATE, NO CONCERNS WITH UPDATES. HE WILL BE IN LATER THIS AFTERNOON TO VISIT WITH HER.
[2024-07-12] MEDS ORDERED: CEFTRIAXONE SODIUM 1 GM VIAL IV ONE (10:58)
--- NOTE | 2024-07-12 11:17 | NUR ---
PT ATTEMPTING TO WORK WITH PT, HER PRESSURES ARE LOW. PER PT HOLDING OFF ON PRESSURES AT THIS TIME. PT STATES SHE IS FEELING DIZZINESS WHEN SITTING UP IN CHAIR. PRESSURES WERE LOW WITH BOTH SITTING/STANDING. MD INFORMED OF LOW BP AT THIS TIME. PT DID RECEIVED BP MEDICATIONS THIS MORNING.
[2024-07-12] MEDS ORDERED: SODIUM CHLORIDE 0.9% 500 ML IV PRN (11:30)
--- NOTE | 2024-07-12 11:39 | NUR ---
PT 500ML BOLUS STARTED. WORKING ON NEW IV SITE, (L) FA IV SITE LEAKING AND PAINFUL - REMOVED AT THIS TIME. BP 89/43(54) AT HTIS TIME, PT C/O DIZZINES STILL WHILE SITTING IN RECLINER, LAID BACK IN RECLINER TO HELP. IV ABX INFUSING. CBG 144. WILL CONTINUE TO CHECK BLOOD PRESSURE. (R) AC IV LEAKY BUT RETURNS BLOOD AND FLUSHES WITHOUT PAIN, WILL MONITOR CLOSELY. CALL LIGHT WITHIN REACH AT THIS TIME, WILL CONTINUE TO MONTIOR.
--- NOTE | 2024-07-12 13:29 | NUR ---
PATIENT IN CHAIR AT THIS TIME. THIS COMMUNICATION CLERK FED PATIENT LUNCH AND PROVIDED PATIENT WITH CLEAR GUTHRIE ENSURE. CALL LIGHT WITHIN REACH, NO FURTHER NEEDS AT THIS TIME.
--- NOTE | 2024-07-12 13:50 | NUR ---
PATIENT IN BED AT THIS TIME. THIS HOUSECLEANER AND RN SHELBI MOVED PATIENT TO BED FROM CHAIR. CALL LIGHT WITHIN REACH, NO FURTHER NEEDS AT THIS TIME.
--- NOTE | 2024-07-12 15:01 | NUR ---
PT RESTING IN BED AT THIS TIME, DENIES NECK PAIN NOW THAT SHE IS LAYING DOWN. DENIES ANY NEEDS AT THIS TIME, RESTING EYES WITH TV ON. BED ALARM IN PLACE. ALL PT CARE NEEDS MET, CALL LIGHT WITHIN REACH. WILL CONTINUE TO MONITOR.
--- NOTE | 2024-07-12 15:42 | NUR ---
PT SON(ADRIANNA) ARRIVED TO ROOM, UPDATES GIVEN ABOUT BP THIS MORNING, INFORMED OF INTERVENTIONS. DENIES ANY FURTHER QUESTIONS/CONCERNS. PT DENIES ANY NEEDS AT THIS TIME. CALL LIGHT WITHIN REACH.
--- NOTE | 2024-07-12 17:05 | NUR ---
ASSISTED PT FROM BED TO COMMODE, PT HAD LOOSE DARK GREEN/BLACK STOOL. ATTENDS CHANGED. ASSISTED PT TO CHAIR FOR DINNER, 1PA/FWW. PT REPORTS DIZZINESS STILL BUT SHE DOES STATE, "ITS MY MORE NORMAL DIZZINESS, WHICH IS TOLERABLE". SETUP TRAY FOR FEEDING, FAMILY SHOWED UP AND PATIENT ATTEMPTING TO FEED SELF WITH FAMILY PRESENT IN THE ROOM. CHAIR ALARM IN PLACE. CALL LIGHT WITHIN REACH. ALL PT CARE NEEDS MET AT THIS TIME. WILL CONTINUE TO MONITOR.
--- NOTE | 2024-07-12 19:26 | NUR ---
REPORT RECEIVED FROM DAYSCAFT RN. PATIENT RESTING IN BED, WATCHING TV. PATIENT DENIES ANY NEEDS AT THIS TIME. CALL LIGHT IN REACH.
--- NOTE | 2024-07-12 20:46 | NUR ---
SCHEDULED MEDICATIONS ADMINISTERED. OKAY TO ADMIN SCHEDULED METOPROLOL PER DR. CARLSON, ASSESSMENT COMPLETE. PATIENT ASSISTED WITH APPLICATION OF CPAP MACHINE, DENIES OTHER NEEDS. CALL LIGHT IN REACH. PATIENT REPOSITIONED, PATIENT REFUSED SCD. VS OBTAINED AND RECORDED. BED ALARM ON.
--- NOTE | 2024-07-12 20:58 | NUR ---
primary rn in room, evening bp 136/48, hr fluctuating between 57-62 when asleep per tele monitor. confirmed with dr selby via phone, okay to give ordered lopressor 12.5mg tablet. primary rn updated.
[2024-07-12] MEDS ORDERED: METOPROLOL TARTRATE 25 MG TAB PO SCH (21:00)
[2024-07-12] MEDS ORDERED: PANTOPRAZOLE SODIUM 40 MG TABEC PO SCH (21:00)
--- NOTE | 2024-07-12 22:05 | NUR ---
CALL LIGHT ANSWERED. PATIENT WANTING TO USE THE BATHROOM TO URINATE. THIS RN REMINDED PATIENT SHE HAS A WHALEY. PATIENT BACK TO BED. NO FURTHER NEEDS. BED ALARM ON. CALL LIGHT IN REACH.
[2024-07-13] VITALS (12 sets, daily range): BP systolic 131–179; BP diastolic 45–59
--- NOTE | 2024-07-13 00:42 | NUR ---
PATIENT AWAKE, WATCHING TV. CONTINUES TO WEAR CPAP WHICH IS CHRONIC FOR HER AT NIGHT. DENIES ANY NEEDS, CALL LIGHT IN REACH.
--- NOTE | 2024-07-13 01:59 | NUR ---
ASSISTED LIVING MANAGER OBTAINED VITALS AND I&O. CATH BAG EMPTIED. PT STATES NO NEEDS AT THIS TIME. CALL LIGHT WITHIN REACH AND BED ALARM ON.
--- NOTE | 2024-07-13 04:14 | NUR ---
ROUNDED ON PATIENT. PATIENT AWAKE AND WATCHING TV, DENIES ANY NEEDS AT THIS TIME. BED ALARM ON, CALL LIGHT IN REACH.
[2024-07-13 05:37] LABS: HEMATOCRIT 23.5 % (35.0-50.0); HEMOGLOBIN 7.9 g/dL (12.0-18.0); MCH 30.2 (27-36); MCHC 33.5 g/dl (30-36); MCV 90.2 fl (81-99); PLATELET COUNT 194 K/uL (140-440); RBC 2.61 M/ul (4.3-5.7)
[2024-07-13 05:44] LABS: ANION GAP 10.6 (7-21); BUN/CREATININE RATIO 8.1 (6.0-28.6); CALCIUM 6.6 mg/dL (8.5-10.1); CREATININE, SERUM 0.74 mg/dL (0.55-1.02); POTASSIUM 3.6 mmol/L (3.5-5.1)
[2024-07-13 06:10] LABS: EOSINOPHILS, MANUAL DIFF 3; LYMPHOCYTES, MANUAL DIFF 36; NEUTROPHILS, MANUAL DIFF 61
--- NOTE | 2024-07-13 06:31 | NUR ---
TECHNOLOGY SALES REPRESENTATIVE OBTAINED VITALS AND I&O. PT REQUESTING TYLENOL. RN NOTIFED. PT STATES NO FURTHER NEEDS AT THIS TIME. CALL LIGHT WITHIN REACH AND BED ALARM ON.
--- NOTE | 2024-07-13 06:55 | NUR ---
in room to give am meds per request of primary rn, prn pain medication also given for 8/10 headache pain. pt took meds w/ applesauce, no issues swallowing noted. call light in reach. bed alarm on for safety.
--- NOTE | 2024-07-13 07:44 | NUR ---
RECEIVED REPORT FROM NIGHT RN. PT RESTING IN BED, WATCHING TV AT THIS TIME, STATES SHE HAD A VERY GOOD NIGHT SLEEP, WIDE EYED THIS MORNING. INFORMED PT WE WILL GET HER UP IN CHAIR THIS MORNING FOR BREAKFAST, DENIES ANY NEEDS. CALL LIGHT WITHIN REACH.
[2024-07-13] MEDS ORDERED: Calcium Gluconate in NS 1,000 MG/50 ML BAG IV ONE (07:45)
[2024-07-13 07:58] LABS: ALBUMIN 2.2 g/dL (3.4-5.0); DIGOXIN 0.9 ng/dL (0.9-2.0)
--- NOTE | 2024-07-13 08:30 | NUR ---
VISITED WITH SON ADRIANNA IN [facility]. SON EXPRESSED RELIEF THAT MOTHER HAS IMPROVED. CLIENT SERVICE AND CONSULTING MANAGER PROVIDED SUPPORTIVE PRESENCE, HOSPITALITY, PRAYER. SON EXPRESSED GRATITUDE.
--- NOTE | 2024-07-13 09:17 | NUR ---
PATIENTS CPAP WATER EMPTIED AND PACKED UP PER PATIENT REQUEST.
--- NOTE | 2024-07-13 09:23 | NUR ---
EDGARDO AT [facility] ABLE TO TAKE PATIENT TOMORROW MORNING. ADMISSION AT FACILITY AT 11 SO PLAN TO D/C AROUND 0945. ORDERS GIVEN TO MD. PATIENT SON ADRIANNA AWARE AND WILL BE TRANSPORTING PATIENT TO FACILITY TOMORROW AM. NO OTHER CM NEEDS AT THIS TIME.
--- NOTE | 2024-07-13 09:36 | NUR ---
IMM LETTER COMPLETED AT 0930. COPY AND SIGNED.
--- NOTE | 2024-07-13 10:00 | NUR ---
VISITED DURING SPIRITUAL CARE ROUNDS. PT APPEARED TO BE SLEEPING. DID NOT DISTURB. PROVIDED PRAYER.
--- NOTE | 2024-07-13 10:28 | NUR ---
ASSESSMENT COMPLETE. PT STATES "UH OH, I THINK I HAVE TO GO." PT IS INCONTINENT OF LIQUID BM IN HER PULL-UP, HAS MORE STOOL IN THE TOILET. PT ASSISTED IN CHANGING GOWN, SOCKS, AND PULL-UP. MALINDA-CARE PROVIDED. PT RETURNS TO RECLINER WITH BLE ELEVATED, RESTING AND WATCHING TELEVISION. ONLY COMPLAIN IS OF A "SINUS HEADACHE" WHICH SHE REPORTS SHE GETS SOMETIMES. NO OTHER COMPLAINTS OF PAIN OR DISCOMFORT. DISCUSSED DISCHARGE PLAN WITH PT, PT VERBALIZES UNDERSTANDING AND REPORTS FEELING EXCITED ABOUT THE PLAN. NO REQUESTS AT THIS TIME, CALL LIGHT IN REACH.
--- NOTE | 2024-07-13 10:32 | NUR ---
PROG NOTE FAXED TO [facility]
--- NOTE | 2024-07-13 10:44 | NUR ---
WHALEY CATHETER AND TELE #7 DISCONTINUED AND REMOVED PER MD ORDERS. PT TOLERATES REMOVAL OF WHALEY CATH WELL, EXCITED TO HAVE THIS REMOVED. PT REMAINS UP IN RECLINER WITH BLE ELEVATED, CALL LIGHT IN REACH.
--- NOTE | 2024-07-13 12:12 | NUR ---
PT UP IN RECLINER WITH BLE ELEVATED, RR EVEN AND UNLABORED, MOUTH OPEN. CALL LIGHT IN REACH.
--- NOTE | 2024-07-13 14:09 | NUR ---
PT IN BED RESTING ON R SIDE, RR EVEN AND UNLABORED. CALL LIGHT IN REACH.
--- NOTE | 2024-07-13 15:04 | NUR ---
SET HOME CPAP WITH WATER. CPAP AT BEDSIDE READY FOR USE.
--- NOTE | 2024-07-13 15:13 | NUR ---
PT CONTINUES RESTING ON R SIDE IN BED, RR EVEN AND UNLABORED, CALL LIGHT IN REACH.
--- NOTE | 2024-07-13 15:43 | NUR ---
1PA WITH FWW TO THE BATHROOM. PATIENT VOIDED 100ML SINCE JUDD SANTOS. PATIENT IS CURRENTLY BACK IN BED SLEEPING. CALL LIGHT AND PERSONAL ITEMS ARE WITHIN REACH.
--- NOTE | 2024-07-13 18:20 | NUR ---
PT UP IN RECLINER WITH BLE ELEVATED. PT HAS MULTIPLE VISITORS PRESENT AT THIS TIME. NO REQUESTS, CALL LIGHT IN REACH.
--- NOTE | 2024-07-13 19:25 | NUR ---
REPORT RECEIVED FROM ARIA VANN. PATIENT SITTING IN CHAIR. DENIES CURRENT NEEDS. CALL LIGHT IN REACH.
--- NOTE | 2024-07-13 21:41 | NUR ---
SCHEDULED MEDS ADMINISTERED, PATIENT AMBULATED TO RESTROOM WITH X1 ASSIST AND USE OF FWW. BACK TO BED WITHOUT DIFFICULTY, VS OBTAINED AND RECORDED. ASSISTED WITH CPAP MACHINE, RT CONTACTED TO HELP PATIENT WITH WEARING CPAP DUE TO DISCOMFORT EXPRESSED BY PATIENT. NO FURTHER NEEDS IDENTIFIED, CALL LIGHT IN REACH. BED ALARM ON.
--- NOTE | 2024-07-13 23:35 | NUR ---
PATIENT RESTING WITH EYES CLOSED, RESP EVEN AND UNLABORED. PATIENT WEARING CPAP. NO NEEDS IDENTIFIED, CALL LIGHT IN REACH. BED ALARM ON
--- NOTE | 2024-07-14 02:38 | NUR ---
PATIENT RESTING WITH EYES CLOSED, RESP. EVEN AND UNLABORED. CALL LIGHT IN REACH, NO NEEDS IDENTIFIED, BED ALARM ON.
--- NOTE | 2024-07-14 03:10 | NUR ---
BED ALARM ANSWERED. PT SITTING UP STATING THE NEED TO USE BATHROOM. INFUSION NURSE SBA WITH FWW TO BATHROOM. PT VOIDED AND ASSISTED BACK TO BED. PT REFUSED CPAP. PT STATES NO FURTHER NEEDS AT THIS TIME. CALL LIGHT WITHIN REACH AND BED ALARM ON.
--- NOTE | 2024-07-14 04:17 | NUR ---
PATIENT RESTING WITH EYES CLOSED, RESP EVEN AND UNLABORED. NO NEEDS IDENTIFIED, CALL LIGHT IN REACH.
[2024-07-14 05:32] LABS: BASOPHILS 1.3 % (0-2); HEMATOCRIT 24.4 % (35.0-50.0); HEMOGLOBIN 8.2 g/dL (12.0-18.0); LYMPHOCYTES 22.4 % (24-44); MCH 30.2 (27-36); MCHC 33.7 g/dl (30-36); MCV 89.8 fl (81-99); MONOCYTES 9.5 % (0-12); NEUTROPHILS 62.8 % (39-80); PLATELET COUNT 196 K/uL (140-440); RBC 2.71 M/ul (4.3-5.7); RDW 19.4 (10.5-15.0)
[2024-07-14 05:41] VITALS: BP 161/59
[2024-07-14 05:47] LABS: ALBUMIN 2.1 g/dL (3.4-5.0); ANION GAP 9.5 (7-21); BUN/CREATININE RATIO 6.49 (6.0-28.6); CALCIUM 7.1 mg/dL (8.5-10.1); CREATININE, SERUM 0.77 mg/dL (0.55-1.02); MAGNESIUM 1.6 mg/dL (1.8-2.4); POTASSIUM 3.5 mmol/L (3.5-5.1)
[2024-07-14 05:54] VITALS: BP 161/59
--- NOTE | 2024-07-14 05:54 | NUR ---
PATIENT AMBULATED TO RESTROOM WITH X1 PERSON ASSIST AND USE OF FWW. BACK TO BED WITHOUT DIFFICULTY. VS OBTAINED AND RECORDED. WATER REFILLED, PATIENT DENIES OTHER NEEDS, CALL LIGHT IN REACH. BED ALARM ON.
--- NOTE | 2024-07-14 06:55 | NUR ---
PATIENT GIVEN SCHEDULED MEDS WITH APPLESAUCE TO TAKE PILLS PO. PATIENT TOLERATED WELL. BED ALARM ON, CALL LIGHT IN REACH. NO FURTHER NEEDS IDENTIFIED.
--- NOTE | 2024-07-14 07:08 | NUR ---
REPORT RECEIVED FROM SOO LAROSE. PT AWAKE AND ALERT IN BED, HOB ELEVATED, WATCHING TELEVISION. REPORTS SHE IS LOOKING FORWARD TO GOING TO [employer] TODAY. NO REQUESTS, CALL LIGHT AND PERSONAL BELONGINGS IN REACH.
--- NOTE | 2024-07-14 08:07 | NUR ---
MEDICATION ADMINISTERED, SEE MAR. PT IS UP IN RECLINER WITH BLE ELEVATED, BREAKFAST TRAY IN FRONT OF HER. TAKES MEDICATION WITH APPLESAUCE WELL. MD IN TO SEE PT. MD DECIDES TO HOLD MEDICATION IMDUR - DONE. MD ANSWERS AND ADDRESSES ALL PT CONCERNS AND QUESTIONS. NO REQUESTS AT THIS TIME, WATCHING TELEVISION AND EATING BREAKFAST. CALL LIGHT IN REACH.
[2024-07-14] MEDS ORDERED: VANCOMYCIN HCL125 MG PO (08:09)
[2024-07-14] MEDS ORDERED: METOPROLOL SUCC25 MG PO (08:09)
[2024-07-14] MEDS ORDERED: PANTOPRAZOLE SO40 MG PO (08:11)
[2024-07-14] MEDS ORDERED: SUCRALFATE1 GM PO (08:11)
[2024-07-14] MEDS ORDERED: LIDOCAINE1 EACH TD (08:11)
--- NOTE | 2024-07-14 08:15 | NUR ---
PATIENT IS CURRENTLY SITTING UP IN THEIR CHAIR. BREAKFAST TRAY WAS BROUGHT IN AND SET UP. SOO MAN IN THE ROOM.
--- NOTE | 2024-07-14 08:19 | NUR ---
CPAP AT BEDSIDE READY FOR USE.
--- NOTE | 2024-07-14 08:56 | NUR ---
FAXED ORDERS TO [facility]. THEY ARE READY FOR PATIENT AT 11. FAMILY WILL BE HERE AT 0930 TO TAKE TO FACILITY. NO FUTHER CM NEEDS.
[2024-07-14] MEDS ORDERED: METOPROLOL SUCCINATE 25 MG TABCR PO SCH (09:00)
[2024-07-14] MEDS ORDERED: ISOSORBIDE MONONITRATE 30 MG TABCR PO SCH (09:00)
[2024-07-14] MEDS ORDERED: MAGNESIUM SULFATE 2 GM/50 ML BAG IV SCH (09:00)
[2024-07-14] MEDS ORDERED: POTASSIUM CHLORIDE 10 MEQ TABCR PO ONE (09:00)
[2024-07-14 09:26] VITALS: BP 139/61
--- NOTE | 2024-07-14 10:05 | NUR ---
ASSESSMENT COMPLETE. PTs SON ARRIVES. PT BEING ASSISTED BY RENETTA BETANCOURT TO GET DRESSED AND READY TO LEAVE.
--- NOTE | 2024-07-14 10:43 | NUR ---
ORDERS SENT TO [facility]
--- NOTE | 2024-07-14 10:49 | NUR ---
CALLED [facility] TO GIVE REPORT, NO ANSWER, MESSAGE LEFT.
--- NOTE | 2024-07-14 12:02 | NUR ---
RETURNED CALL TO [facility] TO GIVE REPORT.
--- NOTE | 2024-07-18 09:29 | OR ---
[facility] [address] [place], [place] [address] Signed DATE OF OPERATION: 07/10/2024 SURGEON: Ramandeep Juárez MD PREOPERATIVE DIAGNOSES: 1. Progressive recurrent anemia. 2. History of gastric bypass. 3. Recent expressive aphasia, neurologic event with known underlying severe advanced vasculopathy. POSTOPERATIVE DIAGNOSIS: Pouch ulcer, nonbleeding with issa white base, less than 2 cm. PROCEDURE: Esophagogastroduodenoscopy with biopsy. ANESTHESIA: Intravenous sedation propofol; Jose Martinez CRNA. INDICATION: This 79-year-old white woman is a patient of Dr. Sam and was admitted on 07/06/2024 with an expressive aphasia and significant neurologic change from previously. Evaluation for the event did not show occlusive disease of any major vessel, but did show evidence of chronic ischemic change. She has known vasculopathy in various realms. She also was noted to have some amount of maroon stool a few days ago without hematemesis. She has undergone gastric bypass operation in the distant past and has been shown to have a pouch ulcer in the past from reports I have heard as performed by Dr. Jane. She has been transfused at least one and possibly 2 units of red blood cells and has had drift of her hematocrit since then but no bleeding per rectum. She is now to undergo upper endoscopy since her hemoglobin has dropped overnight. Notably, she has no gross bleeding from above or below. I spoke with her son, Mr. Rollins at [phone] to obtain a reasonably informed consent. The risk of bleeding, infection, and perforation were reviewed with him and consent was deemed appropriate under the circumstances. FINDINGS: The issa white based ulcer was noted proximal to the anastomosis of the stomach to jejunal limb. It was not bleeding. It was biopsied on the possibility of malignancy of course. Biopsies of the stomach were also undertaken. CLOtest was negative 20 minutes postprocedure. Electronically Signed By: RAMANDEEP JUÁREZ MD 07/13/24 0802 Electronically Signed By: RAMANDEEP JUÁREZ MD 07/18/24 1412 PATIENT NAME: TERRELL ROLLINS [place] OPERATIVE REPORT DATE OF : 47 REPORT #: [id number] PHYSICIAN: RAMANDEEP JUÁREZ MD PCP: COSMO WALLER MD REPORT IS CONFIDENTIAL AND NOT TO BE RELEASED WITHOUT AUTHORIZATION [facility] [address] [place], [place] [address] Signed DESCRIPTION OF PROCEDURE: The patient was brought to the endoscopy suite, remained in the supine position, given intravenous sedation by the surgeon/president with propofol. Only a little anesthesia was required. A bite block was placed. An Olympus video upper endoscope was passed in the hypopharynx and into the esophagus without problem. Esophagus throughout its length was reasonably normal. Scope was passed in the gastric pouch remnant was immediately noted proximal to the anastomosis (gastrojejunal anastomosis was a round ulcer with relatively flat edges with a issa white base and no evidence of recent bleeding). There was no sign of visible vessel. Scope was advanced down the Emily limb as far as possible, but never did encounter the duodenojejunal anastomosis. Scope was withdrawn and the other end of the Emily limb was examined, found to be normal as well. Biopsies were then taken of the ulcer and also the normal gastric pouch to assess for H pylori. Distal esophagus and remaining esophagus were normal and they were not biopsied. She was taken to recovery room in good condition. CONCLUDING DIAGNOSIS: Most likely her anemia is related to ulceration of the gastric pouch remnant. I discussed this with her son and we will review with Dr. Sam. I would recommend Carafate be added to her regimen if it is not already being taken in addition to PPI medication. MD LEIDY Norman/PRAVEENL /[id number] cc: MD Dr. Flaco Bryan Copies: ~ Electronically Signed By: RAMANDEEP JUÁREZ MD 07/13/24 0802 Electronically Signed By: RAMANDEEP JUÁREZ MD 07/18/24 1412 PATIENT NAME: TERRELL ROLLINS [place] [facility]AT[facility] REPORT DATE OF : 47 REPORT #: [id number] PHYSICIAN: RAMANDEEP JUÁREZ MD PCP: COSMO WALLER MD REPORT IS CONFIDENTIAL AND NOT TO BE RELEASED WITHOUT AUTHORIZATION
== END 2024-07-14 10:10 | DRG 371 ==
LOC: ED 18:11 → MS 18:13
PROVIDERS: Emergency Medicine; Family Medicine; Student in an Organized Health Care Education/Training Program; Surgery; ADMIT Student in an Organized Health Care Education/Training Program; ATTEND Student in an Organized Health Care Education/Training Program
PROC: 30233N1 Transfusion of Nonautologous Red Blood Cells into Peripheral Vein, Percutaneous Approach (ICD-10-PCS; 2024-07-08)
PROC: 0DB68ZX Excision of Stomach, Via Natural or Artificial Opening Endoscopic, Diagnostic (ICD-10-PCS; principal; 2024-07-10 13:00)
DX: A04.72 Enterocolitis due to Clostridium difficile, not specified as recurrent (principal); K25.4 Chronic or unspecified gastric ulcer with hemorrhage; F05 Delirium due to known physiological condition; N17.9 Acute kidney failure, unspecified; N30.00 Acute cystitis without hematuria; R18.8 Other ascites; J90 Pleural effusion, not elsewhere classified; K76.0 Fatty (change of) liver, not elsewhere classified; K74.60 Unspecified cirrhosis of liver; F39 Unspecified mood [affective] disorder; I48.91 Unspecified atrial fibrillation; M10.9 Gout, unspecified; E89.0 Postprocedural hypothyroidism; I10 Essential (primary) hypertension; B96.1 Klebsiella pneumoniae [K. pneumoniae] as the cause of diseases classified elsewhere; K57.30 Diverticulosis of large intestine without perforation or abscess without bleeding; M19.90 Unspecified osteoarthritis, unspecified site; M79.7 Fibromyalgia; E87.6 Hypokalemia; E83.51 Hypocalcemia; E83.42 Hypomagnesemia; I25.10 Atherosclerotic heart disease of native coronary artery without angina pectoris; D63.8 Anemia in other chronic diseases classified elsewhere; E11.51 Type 2 diabetes mellitus with diabetic peripheral angiopathy without gangrene; I25.2 Old myocardial infarction; Z90.49 Acquired absence of other specified parts of digestive tract; Z90.710 Acquired absence of both cervix and uterus; Z79.890 Hormone replacement therapy; Z79.01 Long term (current) use of anticoagulants; Z95.5 Presence of coronary angioplasty implant and graft; Z95.2 Presence of prosthetic heart valve; Z98.890 Other specified postprocedural states; Z88.5 Allergy status to narcotic agent; Z91.030 Bee allergy status; Z91.013 Allergy to seafood; Z88.8 Allergy status to other drugs, medicaments and biological substances; Z91.018 Allergy to other foods; Z98.84 Bariatric surgery status; Z79.82 Long term (current) use of aspirin; Z79.899 Other long term (current) drug therapy
CPT/HCPCS: 00731; 36415; 36430; 51702; 51798; 70450; 70496; 70498; 70551; 71045; 74018; 74176; 78278; 80048; 80053; 80162; 81001; 82040; 82140; 83735; 84100; 84439; 84443; 84484; 85025; 85027; 85610; 85730; 86850; 86900; 86901; 86922; 87045; 87046; 87077; 87088; 87186; 87324; 88305; 92526; 92610; 93005; 93010; 94762; 94799; 96375; 97162; 97166; 97530; 99285-25; A9270; A9560; G0378; J0692; J0696; J2003; J2060; J2405; J2470; J2704; J3475; J3480; J3490; J7040; J7060; J7121; P9016; Q9967

== ENCOUNTER 2024-08-10 10:58 | Emergency (ER) | payer MEDICARE, OTHER ==
[~2024-08-10] VITALS: Ht 162.6 cm; Wt 64.5 kg
[~2024-08-10 10:58] MED LIST changes: +LIDOCAINE1 EACH TD; +SUCRALFATE1 GM PO; +VANCOMYCIN HCL125 MG PO
[2024-08-10 11:53] LABS: BASOPHILS 0.7 % (0-2); EOSINOPHILS 0.3 % (0-6); HEMATOCRIT 31.7 % (35.0-50.0); HEMOGLOBIN 10.6 g/dL (12.0-18.0); LYMPHOCYTES 15.9 % (24-44); MCH 29.3 (27-36); MCHC 33.3 g/dl (30-36); MONOCYTES 9.4 % (0-12); NEUTROPHILS 73.7 % (39-80); PLATELET COUNT 189 K/uL (140-440); RDW 17.2 (10.5-15.0)
[2024-08-10 12:03] LABS: ALBUMIN 2.4 g/dL (3.4-5.0); ALBUMIN/GLOBULIN RATIO 0.73 (1.1-2.4); ANION GAP 8.9 (7-21); BILIRUBIN, TOTAL 1.2 mg/dL (0.2-1.0); BUN/CREATININE RATIO 8.88 (6.0-28.6); CALCIUM 7.5 mg/dL (8.5-10.1); CREATININE, SERUM 0.9 mg/dL (0.55-1.02); MAGNESIUM 1.5 mg/dL (1.8-2.4); POTASSIUM 2.9 mmol/L (3.5-5.1); PROTEIN, TOTAL 5.7 g/dL (6.4-8.2)
[2024-08-10] MEDS ORDERED: POTASSIUM CHLORIDE 20 MEQ/15 ML CUP PO ONE (12:30)
[2024-08-10 12:40] LABS: DIGOXIN 2.1 ng/dL (0.9-2.0)
[2024-08-10 13:30] VITALS: BP 159/59
== END 2024-08-10 13:30 | disposition home or self-care (01) ==
LOC: ED 10:58
PROVIDERS: Emergency Medicine
DX: L89.151 Pressure ulcer of sacral region, stage 1 (principal); F03.90 Unspecified dementia, unspecified severity, without behavioral disturbance, psychotic disturbance, mood disturbance, and anxiety; I10 Essential (primary) hypertension; E11.9 Type 2 diabetes mellitus without complications; J45.909 Unspecified asthma, uncomplicated; G47.33 Obstructive sleep apnea (adult) (pediatric)
CPT/HCPCS: 36415; 80053; 80162; 83735; 85025; 99284; A9270

== ENCOUNTER 2024-08-20 19:19 | Emergency (ER) | payer MEDICARE, OTHER | END 2024-08-20 21:53 | disposition home or self-care (01) | LOC: ED 19:19 | DX: S16.1XXA Strain of muscle, fascia and tendon at neck level, initial encounter (principal); I10 Essential (primary) hypertension; E11.9 Type 2 diabetes mellitus without complications; J45.909 Unspecified asthma, uncomplicated; Z91.013 Allergy to seafood; Z88.8 Allergy status to other drugs, medicaments and biological substances; Z88.5 Allergy status to narcotic agent; Z88.0 Allergy status to penicillin; Z79.899 Other long term (current) drug therapy; Z88.2 Allergy status to sulfonamides; W18.30XA Fall on same level, unspecified, initial encounter ==

== ENCOUNTER 2024-08-25 11:02 | Emergency (ER) | payer MEDICARE, OTHER ==
[2024-08-25 11:38] LABS: BASOPHILS 0.6 % (0-2); EOSINOPHILS 0.3 % (0-6); HEMATOCRIT 31.2 % (35.0-50.0); HEMOGLOBIN 10.4 g/dL (12.0-18.0); LYMPHOCYTES 14.4 % (24-44); MCH 29.9 (27-36); MCHC 33.5 g/dl (30-36); MCV 89.2 fl (81-99); MONOCYTES 8.4 % (0-12); NEUTROPHILS 76.3 % (39-80); PLATELET COUNT 124 K/uL (140-440); RDW 17.7 (10.5-15.0)
[2024-08-25] MEDS ORDERED: IBLOOD GLUCOSE TEST STRIP 1 EA TEST XX ONE (11:45)
[2024-08-25 11:52] LABS: ALBUMIN 2.4 g/dL (3.4-5.0); ALBUMIN/GLOBULIN RATIO 0.73 (1.1-2.4); ANION GAP 8.1 (7-21); BILIRUBIN, TOTAL 0.9 mg/dL (0.2-1.0); BUN/CREATININE RATIO 10.63 (6.0-28.6); CALCIUM 7.8 mg/dL (8.5-10.1); CREATININE, SERUM 0.94 mg/dL (0.55-1.02); MAGNESIUM 1.6 mg/dL (1.8-2.4); POTASSIUM 4.1 mmol/L (3.5-5.1); PROTEIN, TOTAL 5.7 g/dL (6.4-8.2)
[2024-08-25 12:15] LABS: DIGOXIN 1.9 ng/dL (0.9-2.0)
[2024-08-25] MEDS ORDERED: SODIUM CHLORIDE 0.9% 1,000 ML IV ONE (12:15)
--- NOTE | 2024-08-25 12:46 | EKG ---
[facility] [address] [facility] [place] [address] Signed Normal sinus rhythm Septal infarct , age undetermined ST \T\ T wave abnormality, consider inferior ischemia ST \T\ T wave abnormality, consider anterolateral ischemia Abnormal ECG When compared with ECG of 12-JUL-2024 00:10, premature atrial complexes are no longer present Confirmed by Martina Galdamez DO ([id number]) on 08/25/2024 12:46:11 PM Electronically Signed By: MARTINA GALDAMEZ DO 08/25/24 1246 PATIENT NAME: TERRELL BECERRIL [place] Electrocardiogram DATE OF : 47 PHYSICIAN: MARTINA GALDAMEZ DO REPORT #: [id number] REPORT IS CONFIDENTIAL AND NOT TO BE RELEASED WITHOUT AUTHORIZATION
[2024-08-25 15:10] VITALS: BP 180/67
== END 2024-08-25 15:10 | disposition home or self-care (01) ==
LOC: ED 11:02
PROVIDERS: Emergency Medicine
DX: R19.7 Diarrhea, unspecified (principal); I10 Essential (primary) hypertension; E11.9 Type 2 diabetes mellitus without complications; J45.909 Unspecified asthma, uncomplicated; I25.2 Old myocardial infarction; G47.30 Sleep apnea, unspecified; Z79.82 Long term (current) use of aspirin; Z79.51 Long term (current) use of inhaled steroids; Z79.899 Other long term (current) drug therapy; Z91.013 Allergy to seafood; Z88.8 Allergy status to other drugs, medicaments and biological substances
CPT/HCPCS: 36415; 80053; 80162; 83735; 84484; 85025; 93005; 93010; 99284; J7030

== ENCOUNTER 2024-09-01 11:02 | Emergency (ER) | payer MEDICARE, OTHER ==
[~2024-09-01] VITALS: Ht 162.6 cm; Wt 65.9 kg
[~2024-09-01 11:02] MED LIST changes: +TYLENOL325 MG PO; -TYLOPHEN500 MG PO
[2024-09-01] MEDS ORDERED: AMOXICILLIN500 MG PO (11:13)
[2024-09-01] MEDS ORDERED: LOPERAMIDE2 MG PO (11:17)
[2024-09-01] MEDS ORDERED: NITROFURANTOIN100 M1 PO (11:18)
[2024-09-01 11:19] LABS: BASOPHILS 0.6 % (0-2); EOSINOPHILS 0.9 % (0-6); HEMATOCRIT 31.1 % (35.0-50.0); HEMOGLOBIN 10.4 g/dL (12.0-18.0); LYMPHOCYTES 10.7 % (24-44); MCH 30.1 (27-36); MCHC 33.6 g/dl (30-36); MCV 89.7 fl (81-99); MONOCYTES 6.9 % (0-12); NEUTROPHILS 80.9 % (39-80); PLATELET COUNT 143 K/uL (140-440); RBC 3.47 M/ul (4.3-5.7); RDW 18.5 (10.5-15.0)
[2024-09-01] MEDS ORDERED: ONDANSETRON HCL4 MG PO (11:19)
[2024-09-01 11:30] LABS: INR 1.89 (0.80-1.30); PROTIME 20.5 Sec (11.2-14.2)
[2024-09-01 11:37] LABS: ALBUMIN 2.3 g/dL (3.4-5.0); ALKALINE PHOSPHATASE 119 U/L (46-116); ALT (SGPT) 24 U/L (14-59); ANION GAP 11.6 (7-21); AST (SGOT) 40 U/L (15-37); BILIRUBIN, TOTAL 0.8 mg/dL (0.2-1.0); BUN/CREATININE RATIO 11.76 (6.0-28.6); CALCIUM 7.8 mg/dL (8.5-10.1); CARBON DIOXIDE 29 mmol/L (21-32); CHLORIDE 102 mmol/L (98-107); CREATININE, SERUM 1.19 mg/dL (0.55-1.02); GLOMERULAR FILTRATION RATE,EST 47 mL/min (>60); POTASSIUM 4.6 mmol/L (3.5-5.1); PROTEIN, TOTAL 5.6 g/dL (6.4-8.2); UREA NITROGEN 14 mg/dL (7-18)
[2024-09-01 11:40] LABS: DIGOXIN 2.1 ng/dL (0.9-2.0)
[2024-09-01] MEDS ORDERED: SODIUM CHLORIDE 0.9% 500 ML IV PRN (13:00)
[2024-09-01 14:20] VITALS: BP 131/55
--- NOTE | 2024-09-01 22:03 | EKG ---
[facility] [address] [place] [address] Signed Normal sinus rhythm ST \T\ T wave abnormality, consider inferior ischemia ST \T\ T wave abnormality, consider anterolateral ischemia Abnormal ECG When compared with ECG of 25-AUG-2024 11:43, No significant change was found Confirmed by Gualberto Bueno MD () on 09/01/2024 10:02:57 PM Electronically Signed By: GUALBERTO BUENO MD 09/01/242202 PATIENT NAME: TERRELL BECERRIL [place] Electrocardiogram DATE OF : 47 PHYSICIAN: GUALBERTO BUENO MD REPORT #: [id number] REPORT IS CONFIDENTIAL AND NOT TO BE RELEASED WITHOUT AUTHORIZATION
== END 2024-09-01 14:20 | disposition home or self-care (01) ==
LOC: ED 11:02
PROVIDERS: Emergency Medicine
DX: R40.4 Transient alteration of awareness (principal); I10 Essential (primary) hypertension; E11.9 Type 2 diabetes mellitus without complications; J45.909 Unspecified asthma, uncomplicated; M19.90 Unspecified osteoarthritis, unspecified site; G47.33 Obstructive sleep apnea (adult) (pediatric); Z91.013 Allergy to seafood; Z79.4 Long term (current) use of insulin; Z88.8 Allergy status to other drugs, medicaments and biological substances; Z79.2 Long term (current) use of antibiotics; Z79.899 Other long term (current) drug therapy; Z79.82 Long term (current) use of aspirin; Z79.890 Hormone replacement therapy
CPT/HCPCS: 36415; 80053; 80162; 85025; 85610; 93005; 93010; 99285; J7040

== ENCOUNTER 2024-09-02 07:54 | Emergency (ER) | payer MEDICARE, OTHER ==
[~2024-09-02] VITALS: Ht 162.6 cm; Wt 65.8 kg
[~2024-09-02 07:54] MED LIST changes: +AMOXICILLIN500 MG PO; +LOPERAMIDE2 MG PO; +NITROFURANTOIN100 M1 PO; +ONDANSETRON HCL4 MG PO
[2024-09-02 09:00] VITALS: BP 146/59
== END 2024-09-02 09:00 | disposition home or self-care (01) ==
LOC: ED 07:54
DX: S09.90XA Unspecified injury of head, initial encounter (principal); I10 Essential (primary) hypertension; E11.9 Type 2 diabetes mellitus without complications; J45.909 Unspecified asthma, uncomplicated; G47.33 Obstructive sleep apnea (adult) (pediatric); Z91.013 Allergy to seafood; Z88.8 Allergy status to other drugs, medicaments and biological substances; W18.30XA Fall on same level, unspecified, initial encounter
CPT/HCPCS: 36415; 70450; 72170; 99284-25; G0480

== ENCOUNTER 2024-09-03 11:53 | Emergency (ER) | payer MEDICARE, OTHER ==
[~2024-09-03] VITALS: Ht 162.6 cm; Wt 62.5 kg
[2024-09-03 12:06] LABS: BASOPHILS 0.6 % (0-2); EOSINOPHILS 1.6 % (0-6); HEMATOCRIT 29.1 % (35.0-50.0); HEMOGLOBIN 9.6 g/dL (12.0-18.0); LYMPHOCYTES 11.8 % (24-44); MCH 29.8 (27-36); MCHC 32.9 g/dl (30-36); MCV 90.5 fl (81-99); MONOCYTES 6.7 % (0-12); NEUTROPHILS 79.3 % (39-80); PLATELET COUNT 118 K/uL (140-440); RBC 3.21 M/ul (4.3-5.7); RDW 17.9 (10.5-15.0)
[2024-09-03 12:17] LABS: ALCOHOL, MEDICAL <3 ng/dL (<3); ANION GAP 7.8 (7-21); BUN/CREATININE RATIO 18.62 (6.0-28.6); CALCIUM 7.4 mg/dL (8.5-10.1); CARBON DIOXIDE 30 mmol/L (21-32); CHLORIDE 103 mmol/L (98-107); CREATININE, SERUM 1.02 mg/dL (0.55-1.02); GLOMERULAR FILTRATION RATE,EST 56 mL/min (>60); POTASSIUM 3.8 mmol/L (3.5-5.1); UREA NITROGEN 19 mg/dL (7-18)
[2024-09-03 13:44] VITALS: BP 97/44
--- NOTE | 2024-09-03 20:59 | EKG ---
[facility] [address] [facility] [place] [address] Signed Normal sinus rhythm Nonspecific ST and T wave abnormality Abnormal ECG When compared with ECG of 01-SEP-2024 11:11, No significant change was found Confirmed by Gualberto Bueno MD () on 09/03/2024 8:59:08 PM Electronically Signed By: GUALBERTO BUENO MD 09/03/242058 PATIENT NAME: TERRELL BECERRIL [place] Electrocardiogram DATE OF : 47 PHYSICIAN: GUALBERTO BUENO MD REPORT #: [id number] REPORT IS CONFIDENTIAL AND NOT TO BE RELEASED WITHOUT AUTHORIZATION
[2024-09-04] MEDS ORDERED: POTASSIUM CHLO10 MEQ PO (07:58)
[2024-09-04] MEDS ORDERED: FUROSEMIDE20 MG PO (07:59)
[2024-09-04] MEDS ORDERED: PROLIA60 MG/1 ML SUB-Q (08:11)
== END 2024-09-03 13:45 | disposition home or self-care (01) ==
LOC: ED 11:53
PROVIDERS: Emergency Medicine
DX: Z04.3 Encounter for examination and observation following other accident (principal); I10 Essential (primary) hypertension; E11.9 Type 2 diabetes mellitus without complications; J45.909 Unspecified asthma, uncomplicated; M19.90 Unspecified osteoarthritis, unspecified site; G47.33 Obstructive sleep apnea (adult) (pediatric); Z91.013 Allergy to seafood; Z88.8 Allergy status to other drugs, medicaments and biological substances; Z79.899 Other long term (current) drug therapy
CPT/HCPCS: 36415; 70450; 80048; 85025; 93005; 93010; 99284-25; G0480

== ENCOUNTER 2024-09-03 20:26 | Inpatient (IN) | payer MEDICARE, OTHER ==
[~2024-09-03] VITALS: Ht 162.6 cm; Wt 63.0 kg
[2024-09-03 21:54] LABS: BASOPHILS 0.9 % (0-2); EOSINOPHILS 1.6 % (0-6); HEMATOCRIT 27.8 % (35.0-50.0); HEMOGLOBIN 9.1 g/dL (12.0-18.0); MCH 29.7 (27-36); MCHC 32.9 g/dl (30-36); MCV 90.2 fl (81-99); NEUTROPHILS 72.5 % (39-80); PLATELET COUNT 104 K/uL (140-440); RBC 3.08 M/ul (4.3-5.7); RDW 17.8 (10.5-15.0)
[2024-09-03 22:22] LABS: ALBUMIN 2.1 g/dL (3.4-5.0); ALBUMIN/GLOBULIN RATIO 0.78 (1.1-2.4); ANION GAP 9.4 (7-21); BILIRUBIN, TOTAL 0.6 mg/dL (0.2-1.0); BUN/CREATININE RATIO 17.85 (6.0-28.6); CALCIUM 7.3 mg/dL (8.5-10.1); CREATININE, SERUM 1.12 mg/dL (0.55-1.02); POTASSIUM 3.4 mmol/L (3.5-5.1); PROTEIN, TOTAL 4.8 g/dL (6.4-8.2)
[2024-09-03 22:40] LABS: BILIRUBIN, URINE NEGATIVE (negative); BLOOD/HGB, URINE NEGATIVE (Negative); KETONE, URINE TRACE (Negative); LEUK ESTERASE, URINE SMALL (negative); NITRITE, URINE POSITIVE (negative); PH, URINE 5.5 (5-7)
[2024-09-03 22:44] LABS: RED BLOOD CELLS, URINE 0-1 /hpf (0-5)
[2024-09-03 22:45] LABS: CASTS, URINE NONE SEEN \\lpf; CRYSTALS, URINE NONE SEEN (0-1+); EPITHELIAL CELLS, URINE SQUAMOUS 1+ /lpf (0-1+); WHITE BLOOD CELLS, URINE >50 /HPF (0-5)
[2024-09-03 22:46] LABS: BACTERIA, URINE 2+ /hpf (negative); COLLECTION TYPE, URINE CATH; REFLEX CULTURE, URINE Yes (No)
[2024-09-03] MEDS ORDERED: CEFTRIAXONE SODIUM 2 GM in SODIUM CHLORIDE 0.9% 100 ML IV ONE (23:00)
[2024-09-03] MEDS ORDERED: LACTATED RINGER'S 1,000 ML IV ONE (23:45)
[2024-09-03 23:56] LABS: LACTIC ACID, BLOOD 2.5 mmol/L (0.4-2.0)
[2024-09-04] VITALS (12 sets, daily range): BP systolic 99–196; BP diastolic 45–85
[2024-09-04] MEDS ORDERED: LACTATED RINGER'S 1,000 ML IV SCH (01:45)
[2024-09-04] MEDS ORDERED: ondansetron HCL 4 MG/2 ML VIAL IV PRN ×2 (01:45→11:45)
[2024-09-04] MEDS ORDERED: ACETAMINOPHEN 325 MG TAB PO PRN ×2 (01:45→11:45)
[2024-09-04] MEDS ORDERED: Calcium Gluconate in NS 1,000 MG/50 ML BAG IV ONE (02:00)
--- NOTE | 2024-09-04 04:32 | NUR ---
RECEIVED BEDSIDE REPORT IN ED, TRANSFERRED VIA STRETCHER TO ROOM 119 WITH ALL BELONGINGS. ASSESSMENT SHOWS MANY BRUISES FROM RECENT FALLS, ALONG WITH REDDENDED, YET BLANCHABLE COCCYX. SUPPORTED WITH PILLOWS. ORIENTED TO CALL LIGHT AND PLAN OF CARE. ADMINISTERED PRN TYLENOL FOR GENERALIZED PAIN. CALL LIGHT IN REACH, BED ALARM ACTIVE
[2024-09-04 05:46] LABS: EOSINOPHILS 1.5 % (0-6); HEMATOCRIT 29.9 % (35.0-50.0); HEMOGLOBIN 9.9 g/dL (12.0-18.0); LYMPHOCYTES 18.2 % (24-44); MCH 29.8 (27-36); MCV 90.2 fl (81-99); MONOCYTES 9.8 % (0-12); NEUTROPHILS 69.5 % (39-80); PLATELET COUNT 121 K/uL (140-440); RBC 3.32 M/ul (4.3-5.7)
--- NOTE | 2024-09-04 05:49 | NUR ---
PT RESTING IN BED, ALERT. GIVEN CHAPTSTICK AND WARM BLANKETS. CALL LIGHT IN REACH, BED ALARM ACTIVE
[2024-09-04 06:06] LABS: ALBUMIN 2.3 g/dL (3.4-5.0); ALBUMIN/GLOBULIN RATIO 0.74 (1.1-2.4); ANION GAP 9.5 (7-21); BILIRUBIN, TOTAL 0.6 mg/dL (0.2-1.0); BUN/CREATININE RATIO 18.62 (6.0-28.6); CALCIUM 7.6 mg/dL (8.5-10.1); CREATININE, SERUM 1.02 mg/dL (0.55-1.02); POTASSIUM 3.5 mmol/L (3.5-5.1); PROTEIN, TOTAL 5.4 g/dL (6.4-8.2)
--- NOTE | 2024-09-04 07:22 | NUR ---
REPORT FROM EVENING NURSE
--- NOTE | 2024-09-04 07:44 | NUR ---
MORNING ASSESSMENT IS COMPLETE. PATIENT AWAKE BRIEFLY AND THEN BACK TO SLEEPING QUIETLY. NO NEEDS AT THIS TIME, PLAN TO SIT PATIENT UP WHEN BREAKFAST ARRIVED.
[2024-09-04] MEDS ORDERED: POTASSIUM CHLO10 MEQ PO (07:58)
[2024-09-04] MEDS ORDERED: FUROSEMIDE20 MG PO (07:59)
[2024-09-04] MEDS ORDERED: PROLIA60 MG/1 ML SUB-Q (08:11)
--- NOTE | 2024-09-04 08:20 | NUR ---
PATIENT UP TO CHAIR FOR BREAKFAST, 2PA PIVOT. PATIENT DID VERY WELL AND COULD BE A 1PA. LINENS CHANGED. CHAIR ALARM ON. CALL LIGHT IN REACH. NO FURTHER NEEDS AT THIS TIME.
--- NOTE | 2024-09-04 08:39 | NUR ---
PATIENT PULLED OUT IV. AWAITING DOCTORS ORDERS BEFORE REPLACING IV.
--- NOTE | 2024-09-04 08:54 | NUR ---
PATIENT INITIALLY REFUSED CARES, STATING THEY WANTED TO "BE LEFT ALONE." SOO CORLEY AND CARLOS REEDER WERE ABLE TO GET THEM UP TO THE CHAIR AND SET UP FOR BREAKFAST.
--- NOTE | 2024-09-04 09:05 | NUR ---
ATTEMPT TO CALL SOO JAMES AT [facility], MESSAGE LEFT WITH STAFF TO PLEASE CALL BACK.
--- NOTE | 2024-09-04 09:22 | NUR ---
PT SITTING IN RECLINER, SIPPING ON ICE WATER. E COMMERCE MARKETING ANALYST ASSESSING VS. CALL LIGHT IN REACH, NO NEEDS AT THIS TIME.
--- NOTE | 2024-09-04 09:34 | NUR ---
SPOKE WITH ERIKA AT [facility]. PATIENT HAS DME, WALKER, WHEELCHAIR. HAS HOME HEALTH SERVICES. HAS RECENTLY BEEN SEEN BY SPEECH THERAPY FOR DIFFICULTY EATING. PATIENT HAS HAD RECENTLY BEEN SEEN BY DR. WALLER AND MEDICATION CHANGES MADE. ERIKA CONCERNED ABOUT DIGOXIN LEVEL IT'S BEEN BORDERLINE HIGH. PATIENT HAS CONTINUED TO DECLINE, HOWEVER, THEY HAVE INCREASED HER SERVICE PLAN WITHIN THE LAST COUPLE WEEKS TO MEET PATIENT NEEDS. THEY HAVE DISCUSSED HOSPICE WITH PATIENT'S SON, ADRIANNA, BUT NO DECISIONS HAVE BEEN MADE IN THAT REGARD. DR. BUENO UPDATED ABOUT DISCUSSION WITH [facility], CURRENTLY THE PLAN IS TO RETURN TO [facility] WHEN MEDICALLY STABLE.
[2024-09-04] MEDS ORDERED: MAGNESIUM400 MG PO (09:56)
--- NOTE | 2024-09-04 10:12 | NUR ---
medications reconciled using pharmacy records and facility [facility]
--- NOTE | 2024-09-04 10:25 | NUR ---
PT JUST FINISHED WORKING WITH PT. UPON THIER ASSESSMENT, PT IS A 2PA TO THE BSC. PT WAS ABLE TO VOID. PT IS NOW BACK IN RECLINER WITH BLANKET. PERSONAL BELONGINGS AND CALL LIGHT WITHIN REACH, NO FURTHER NEEDS AT THIS TIME.
--- NOTE | 2024-09-04 10:46 | NUR ---
CALLED AND SPOKE WITH [facility], VERIFIED PATIENT IS ON THEIR SERVICE. H&P FAXED TO [facility].
--- NOTE | 2024-09-04 11:30 | NUR ---
PT POSITIONED IN RECLINER WITH PILLOWS AND BLANKET. MD CURRENTLY IN ROOM TALKING WITH PT. CALL LIGHT IN REACH.
[2024-09-04] MEDS ORDERED: PHARMACY RENAL DOSE ADJUSTMENT 1 DOSE MISC PO SCH (12:00)
--- NOTE | 2024-09-04 12:15 | EKG ---
[facility] [address] [place] [address] Signed Sinus rhythm with 1st degree AV block Low voltage QRS Septal infarct , age undetermined T wave abnormality, consider inferolateral ischemia Abnormal ECG When compared with ECG of 03-SEP-2024 12:14, [place] interval has increased Septal infarct is now present Confirmed by Gualberto Bueno MD () on 09/04/2024 12:15:15 PM Electronically Signed By: GUALBERTO BUENO MD 09/04/24 1215 PATIENT NAME: TERRELL BECERRIL [place] Electrocardiogram DATE OF : 47 PHYSICIAN: GUALBERTO BUENO MD REPORT #: [id number] REPORT IS CONFIDENTIAL AND NOT TO BE RELEASED WITHOUT AUTHORIZATION
[2024-09-04] MEDS ORDERED: LEVOTHYROXINE SODIUM 112 MCG TAB PO SCH (12:21)
[2024-09-04] MEDS ORDERED: DULOXETINE HCL 60 MG CAP PO SCH (12:21)
[2024-09-04] MEDS ORDERED: FUROSEMIDE 20 MG TAB PO PRN (12:30)
--- NOTE | 2024-09-04 12:44 | NUR ---
PT SITTING UP EATING LUNCH. PT REPORTS THAT THE MASHED POTATOES AND BROCCOLI ARE "WONDERFUL" BUT THAT SHE "CAN'T SWALLOW THE MEATLOAF BECAUSE IT'S TOO HARD." SOO MARIO AND THIS SN COLLABORATING WITH PT FOR APPROPRIATE DINNER SUBSTITUTIONS. CALL LIGHT IN HAND, NO FURTHER NEEDS AT THIS TIME.
[2024-09-04 12:47] LABS: DIGOXIN 0.7 ng/dL (0.9-2.0)
--- NOTE | 2024-09-04 12:51 | NUR ---
UR CLINICAL REVIEW: 2 MN FOR VERSALUS: MEETS INPT CRITERIA FOR UTI WITH [facility] INPT 09/04/24 @ 1138 ORDER MATCHES REG NO AUTH REQ PER MEDICARE GUIDELINES DISCHARGE TO HOME WHEN STABLE. ANTICIPATE 1-2 DAYS.
--- NOTE | 2024-09-04 14:34 | NUR ---
VISITED DURING SPIRITUAL CARE ROUNDS. PT APPEARED TO BE SLEEPING. DID NOT DISTURB. PROVIDED PRAYER.
--- NOTE | 2024-09-04 14:36 | NUR ---
IN WITH SOO MARIO. NEW IV PLACED BY SOO MARIO. IV FLUIDS RESUMED. ASSISTED PT TO BSC, PT UNABLE TO VOID. PT BACK TO CHAIR, REPOSITIONED WITH BLANKET AND PILLOWS. ASSESSMENT COMPLETED. PT NOTED TO HAVE 3+ PITTING EDEMA TO BLE. LEGS ELEVATED, PRN LASIX ADMINISTERED. CALL LIGHT IN HAND. NO FURTHER NEEDS AT THIS TIME.
--- NOTE | 2024-09-04 16:07 | NUR ---
PATIENT UP TO COMMODE WITH 2PA TO VOID 300ML URINE. PATIENT BACK TO CHAIR, CHAIR ALARM IS ON, CALL LIGHT WITHIN REACH.
--- NOTE | 2024-09-04 17:10 | NUR ---
PT SITTING UP IN RECLINER WATCHING TV. CALL LIGHT IN HAND, NO NEEDS AT THIS TIME.
--- NOTE | 2024-09-04 18:36 | NUR ---
ANALYTICAL MANAGER IN ROOM TAKING VS. PT WORKING ON ENSURE AND APPLE SAUCE IN RECLINER. CALL LIGHT IN HAND, DENIES FURTHER NEEDS AT THIS TIME. APPETITE WAS GREATLY IMPROVED THIS MEAL.
--- NOTE | 2024-09-04 19:38 | NUR ---
REPORT RECEIVED FROM DAY SHIFT RN. PT SITTING IN RECLINER. DENIES NEEDS. WHITE BOARD UPDATED. CALL LIGHT IN REACH. CHAIR ALARM FOR SAFETY.
[2024-09-04] MEDS ORDERED: APIXABAN 5 MG TAB PO SCH (21:00)
[2024-09-04] MEDS ORDERED: ATORVASTATIN 40 MG TAB PO SCH (21:00)
[2024-09-04] MEDS ORDERED: carvediloL 6.25 MG TAB PO SCH (21:00)
[2024-09-04] MEDS ORDERED: CEFTRIAXONE SODIUM 2 GM in SODIUM CHLORIDE 0.9% 100 ML IV SCH (21:00)
--- NOTE | 2024-09-04 21:24 | NUR ---
EVENING ASSESSMENT COMPLETE. SCHEDULED MEDS ADMIN PER EMAR WITH BITES OF APPLESAUCE. PT REPORTS PAIN 5/10. PRN FOR PAIN ADMIN PER EMAR. PT DENIES NAUSEA. IV ABX INFUSING WNL. PT HOME CPAP IN PLACE. SpO2 HIGH 90'S. PUREWICK PLACED PER PT REQUEST. RED AREA ON COCCYX NOTED. AREA BLANCHABLE WITH SKIN INTACT. BARRIER CREAM UTILIZED. PT REPOSITIONED ON LEFT HIP WITH PILLOW. PT DENIES QUESTIONS OR CONCERNS. CALL LIGHT IN REACH. BED ALARM FOR SAFETY.
--- NOTE | 2024-09-04 21:30 | NUR ---
CALL LIGHT ANSWERED. 1 PA TO BEDSIDE COMMODE FROM CHAIR USING WALKER. PATIENT VOIDED 175ML URINE. PATIENT IS NOW LAYING IN BED. V/S AND I&O'S COMPLETED. WARM BLANKET PROVIDED. CALL LIGHT WITHIN REACH. BED ALARM ON FOR SAFETY.
--- NOTE | 2024-09-04 23:34 | NUR ---
PT RESTING IN BED WITH EYES CLOSED. RESPIRATIONS EVEN. CALL LIGHT IN REACH. BED ALARM FOR SAFETY.
[2024-09-05] VITALS (11 sets, daily range): BP systolic 104–165; BP diastolic 47–69
--- NOTE | 2024-09-05 01:41 | NUR ---
PT RESTING WITH EYES CLOSED. AWAKENS EASILY. VS OBTAINED, WNL. NO C/O PAIN AT THIS TIME. ASSITED PT TO REPOSITION IN BED. NO NEEDS AT THIS TIME. CALL LIGHT IN REACH.
--- NOTE | 2024-09-05 03:05 | NUR ---
IN TO REPLACE TELE LEADS/BATTERIES. PT UP TO BSC WITH 1PA TO VOID. STAFF ASSIST WITH MALINDA CARE. BACK TO BED, RADHA WELL. GAIT WEAK. REPOSITIONED TO LEFT SIDE WITH PILLOWS. WARM BLANKET PROVIDED. CPAP IN PLACE. NO FURTHER NEEDS. BED ALARM IN PLACE. CALL LIGHT IN REACH.
--- NOTE | 2024-09-05 03:59 | NUR ---
PT RESTING IN BED WITH EYES CLOSED. RESPIRATIONS EVEN. CALL LIGHT IN REACH.
[2024-09-05 05:20] LABS: BASOPHILS 0.9 % (0-2); EOSINOPHILS 3.2 % (0-6); HEMATOCRIT 27.1 % (35.0-50.0); HEMOGLOBIN 9.1 g/dL (12.0-18.0); LYMPHOCYTES 25.3 % (24-44); MCHC 33.5 g/dl (30-36); MCV 89.4 fl (81-99); MONOCYTES 10.4 % (0-12); NEUTROPHILS 60.2 % (39-80); PLATELET COUNT 133 K/uL (140-440); RBC 3.03 M/ul (4.3-5.7)
--- NOTE | 2024-09-05 05:22 | NUR ---
LAB IN FOR MORNING DRAW. VS AND I&O OBTAINED. PT REPOSITIONED TO RIGHT SIDE WITH PILLOWS. NO NEEDS AT THIS TIME. CALL LIGHT IN REACH. BED ALARM FOR SAFETY.
[2024-09-05 05:33] LABS: ALBUMIN/GLOBULIN RATIO 0.69 (1.1-2.4); ANION GAP 7.4 (7-21); BILIRUBIN, TOTAL 0.4 mg/dL (0.2-1.0); BUN/CREATININE RATIO 15.78 (6.0-28.6); CALCIUM 7.1 mg/dL (8.5-10.1); CREATININE, SERUM 0.95 mg/dL (0.55-1.02); MAGNESIUM 1.7 mg/dL (1.8-2.4); PHOSPHORUS, INORGANIC 3.3 mg/dL (2.5-4.9); POTASSIUM 3.4 mmol/L (3.5-5.1); PROTEIN, TOTAL 4.9 g/dL (6.4-8.2)
--- NOTE | 2024-09-05 07:27 | NUR ---
REPORT RECEIVED FROM SOO VILLASEÑOR. PT IN BED SLEEPING, CALL LIGHT IN LAP.
[2024-09-05] MEDS ORDERED: MAGNESIUM SULFATE 2 GM/50 ML BAG IV ONE (07:30)
[2024-09-05] MEDS ORDERED: POTASSIUM CHLORIDE 40 MEQ,LIDOCAINE HCL 1% 40 MG in DEXTROSE 5% 250 ML IV ONE (07:30)
[2024-09-05] MEDS ORDERED: DIGOXIN 125 MCG TAB PO SCH (09:00)
[2024-09-05] MEDS ORDERED: ASPIRIN 81 MG TABEC PO SCH (09:00)
--- NOTE | 2024-09-05 09:02 | NUR ---
ADMINISTERED MORNING MEDS. PT UP IN CHAIR EATING BREAKFAST. DENIES CONCERNS ATT.
--- NOTE | 2024-09-05 09:21 | NUR ---
PATIENT IS CURRENTLY SITTING UP IN THE RECLINER. RN BARNEY AND STUDENT MAGGIE HAD DONE VITALS WITH THE EXCEPTION OF THEIR TEMPERATURE, TAKEN AND THEN DOCUMENTED. A STRAW WAS PROVIDED FOR ENSURE PROTEIN MAX DRINK. NO OTHER CARES WERE REQUESTED. CALL LIGHT AND PERSONAL ITEMS ARE WITHIN REACH.
--- NOTE | 2024-09-05 09:48 | NUR ---
CALLED AND SPOKE WITH RAJEEV AT [facility] AND NOTIFIED PATIENT WILL LIKELY DC BACK TO THEIR FACILITY TOMORROW. STATES THEY WILL PLAN TO COMPLETE THEIR READMISSION ASSESSMENT PRIOR TO DC.
--- NOTE | 2024-09-05 09:59 | NUR ---
CALLED TO PT ROOM BY PHYS THERAPY. PT HAD SYNCOPAL EPISODE WHILE TRYING TO STAND FOR ORTHOSTATIC VS. PT ANSWERS QUESTIONS APPROPRIATLY BUT IS LATHARGIC. VS STABLE, BP SLIGHTLY LOW AT 104\42(58). IN ROOM. EKG ORDERED. HOYERED BACK TO BED.
[2024-09-05 10:28] LABS: ALBUMIN/GLOBULIN RATIO 0.69 (1.1-2.4); ANION GAP 5.6 (7-21); BILIRUBIN, TOTAL 0.4 mg/dL (0.2-1.0); BUN/CREATININE RATIO 14.43 (6.0-28.6); CALCIUM 7.2 mg/dL (8.5-10.1); CREATININE, SERUM 0.97 mg/dL (0.55-1.02); MAGNESIUM 2.2 mg/dL (1.8-2.4); POTASSIUM 3.6 mmol/L (3.5-5.1); PROTEIN, TOTAL 4.9 g/dL (6.4-8.2)
--- NOTE | 2024-09-05 10:42 | NUR ---
PT REMAINS DROWSY BUT ANSWERS QUESTIONS APPROP. VS STABLE, BP COMING BACK UP LAST 120'S SYS,
--- NOTE | 2024-09-05 11:04 | NUR ---
PT NOT AVAILABLE FOR VISIT. PROVIDED PRAYER.
--- NOTE | 2024-09-05 11:09 | NUR ---
PT BACK FROM CT. PLACED PILLOWS UNDER PT'S L HIP; IV HOOKED BACK UP AND RUNNING. PUREWICK BACK IN PLACE, PT VOIDING. PT'S MENTATION IS BACK TO BASELINE; PT REPORTS THAT THE COLD CT TABLE "WOKE HER UP." CALL LIGHT WITHIN REACH, NO NEEDS AT THIS TIME.
--- NOTE | 2024-09-05 12:55 | NUR ---
PT UPSET THAT THE KITCHEN AGAIN BROUGHT HER GLUTEN FREE FOOD SHE IS NOT ALLERGIC AND WANTED CHICKEN NUGGETS, THEY BROUGHT HER PLAIN CHICKEN.
--- NOTE | 2024-09-05 13:06 | EKG ---
[facility] [address] [facility] [place] [address] Signed Sinus rhythm with 1st degree AV block with premature atrial complexes Septal infarct (cited on or before 03-SEP-2024) ST \T\ T wave abnormality, consider inferior ischemia ST \T\ T wave abnormality, consider anterior ischemia Abnormal ECG When compared with ECG of 03-SEP-2024 21:38, premature atrial complexes are now present Questionable change in initial forces of Septal leads Nonspecific T wave abnormality has replaced inverted T waves in Lateral leads Confirmed by Martina Galdamez DO ([id number]) on 09/05/2024 1:06:28 PM Electronically Signed By: MARTINA GALDAMEZ DO 09/05/24 1306 PATIENT NAME: TERRELL BECERRIL [place] Electrocardiogram DATE OF : 47 PHYSICIAN: MARTINA GALDAMEZ DO REPORT #: [id number] REPORT IS CONFIDENTIAL AND NOT TO BE RELEASED WITHOUT AUTHORIZATION
--- NOTE | 2024-09-05 13:44 | NUR ---
UPDATED PROGRESS NOTES FAXED TO [facility].
--- NOTE | 2024-09-05 14:15 | NUR ---
IN ROOM TO COMPLETE FOCUSED ASSESSMENT. PT RESTING IN BED, EYES CLOSED. PT'S DINNER ORDER PLACED. CALL LIGHT IN REACH, NO FURTHER NEEDS AT THIS TIME.
--- NOTE | 2024-09-05 15:31 | NUR ---
PT RESTING IN BED WITH EYES CLOSED; RR EVEN AND UNLABORED. CALL LIGHT WITHIN REACH.
--- NOTE | 2024-09-05 17:00 | NUR ---
PT RESTING IN BED WITH EYES CLOSED. CALL LIGHT IN LAP.
--- NOTE | 2024-09-05 19:31 | NUR ---
REPORT RECEIVED FROM DAY SHIFT RN. PT LYING IN BED ALERT AND ORIENTED. ASSISTED TO REPOSITION WITH PILLOWS. WHITE BOARD UPDATED. CALL LIGHT IN REACH. BED ALARM FOR SAFETY.
--- NOTE | 2024-09-05 21:30 | NUR ---
EVENING ASSESSMENT COMPLETE. SCHEDULED MEDS ADMIN WITH BITES OF APPLESAUCE. NO SWALLOWING ISSUES NOTED. PT REPORTS COCCYX PAIN. PT PLACED ON WAFFLE MATTRESS OVERLAY WITH USE OF ERICKA SLING. COCCYX SLIGHTLY RED, BLANCHABLE. SKIN INTACT. ALLEVYN PLACED FOR COMFORT. PT REPORTS SLIGHT NAUSEA AND DIZZINESS WITH ACTIVITY. NEW PUREWICK PLACED AFTER MALINDA CARE. PT DENIES FURTHER NEEDS AT THIS TIME. CALL LIGHT IN REACH. BED ALARM FOR SAFETY.
--- NOTE | 2024-09-05 22:06 | NUR ---
PUMP ALARMING, IV ABX COMPLETE. IV SITE WNL, BRISK BLOOD RETURN NOTED AND IV SALINE LOCKED AFTER FLUSHING WITH 10MLS NS. PUMP CLEARED. NO ADDITIONAL NEEDS OR CONCERNS. CALL LIGHT IN REACH AND BED ALARM ON FOR SAFETY.
--- NOTE | 2024-09-05 23:37 | NUR ---
PT AWAKE IN BED. ASSISTED WITH HOME CPAP. PT REPOSITIONED WITH PILLOWS. REPORT COCCYX PAIN IMPROVED WITH WAFFLE MATTRESS. WARM BLANKET PROVIDED. NO FURTHER NEEDS. BED ALARM IN PLACE. CALL LIGHT IN REACH.
[2024-09-06] VITALS (7 sets, daily range): BP systolic 103–141; BP diastolic 41–71
--- NOTE | 2024-09-06 01:49 | NUR ---
PT RESTING WITH EYES CLOSED. AWAKENS EASILY. VS AND I&O OBTAINED. PT INCONTINENT AROUND PUREWICK. NEW PUREWICK PLACED AFTER MALINDA CARE. PT ABLE TO ASSIST WITH CARES. REPOSITIONED WITH PILLOWS IN BED. SIPS OF WATER PROVIDED. CPAP MASK IN PLACE. NO FURTHER NEEDS. BED ALARM FOR SAFETY. CALL LIGHT IN REACH.
--- NOTE | 2024-09-06 03:57 | NUR ---
PT RESTING IN BED WITH EYES CLOSED. HOME CPAP IN PLACE. TELE #[address] HR 50'S. BED ALARM FOR SAFETY. CALL LIGHT IN REACH.
[2024-09-06 05:32] LABS: BASOPHILS 0.7 % (0-2); EOSINOPHILS 2.8 % (0-6); HEMATOCRIT 26.6 % (35.0-50.0); LYMPHOCYTES 34.6 % (24-44); MCH 29.9 (27-36); MCHC 33.7 g/dl (30-36); MCV 88.8 fl (81-99); MONOCYTES 10.6 % (0-12); NEUTROPHILS 51.3 % (39-80); PLATELET COUNT 134 K/uL (140-440); RDW 18.4 (10.5-15.0)
[2024-09-06 05:48] LABS: ALBUMIN 1.9 g/dL (3.4-5.0); ALBUMIN/GLOBULIN RATIO 0.7 (1.1-2.4); BILIRUBIN, TOTAL 0.5 mg/dL (0.2-1.0); BUN/CREATININE RATIO 14.81 (6.0-28.6); CALCIUM 7.3 mg/dL (8.5-10.1); CREATININE, SERUM 0.81 mg/dL (0.55-1.02); MAGNESIUM 2.1 mg/dL (1.8-2.4); PROTEIN, TOTAL 4.6 g/dL (6.4-8.2)
--- NOTE | 2024-09-06 06:09 | NUR ---
LAB IN FOR MORNING DRAW. VS AND I&O OBTAINED. PT REPORTS 11/02 BACK/COCCYX PAIN. PRN FOR PAIN ADMIN WITH BITES OF APPLESAUCE. 2PA TO REPOSITION IN BED WITH PILLOWS. NO FURTHER NEEDS. CALL LIGHT IN REACH. BED ALARM FOR SAFETY.
--- NOTE | 2024-09-06 06:34 | NUR ---
MD CALLED TO CLARIFY TELE ORDER. TELE DC'D PER MD. VERIFIED WITH READBACK METHOD.
--- NOTE | 2024-09-06 07:19 | NUR ---
IN BED, ALERT AND ORIENTED. ON ROOM AIR, DENIES FEELINGS OF LIGHTHEADNESS AND DIZZINES. PUREWICK IN PLACE,DENIES C/OPAIN OR CP. COOPERATIVE WITH ASSESSMENT
--- NOTE | 2024-09-06 08:10 | NUR ---
up to chair, waffle mattress on bed and waffle cushion on chair. 2PA/fww, tolerated well, no c/o lightheadness, call light at hands reach. no c/o pain. Bruised arms, back and legs, healing, purewick in place
--- NOTE | 2024-09-06 08:27 | NUR ---
Up in chair, feeding self, took meds with applesauce.
--- NOTE | 2024-09-06 08:59 | NUR ---
CALLED AND SPOKE WITH RAJEEV AT [facility] TO NOTIFY THEM PATIENT WILL BE DISCHARGED TODAY.
--- NOTE | 2024-09-06 10:08 | NUR ---
PATIENT IS RESTING IN CHAIR, SLEEPING WITH REGULAR RESPIRATIONS.
--- NOTE | 2024-09-06 10:20 | NUR ---
CALLED AND SPOKE WITH ADRIANNA, SON. INFORMED HIM PATIENT WILL BE DISCHARGED FROM FACILITY TODAY, DISCUSSED TRANSPORTATION OPTIONS. ADRIANNA REQUESTS PATIENT RETURN TO [facility]IA [facility].
--- NOTE | 2024-09-06 10:32 | NUR ---
VISITED DURING SPIRITUAL CARE ROUNDS. PT IN OVERALL GOOD SPIRITS; NO IMMEDIATE NEEDS. AUTOMATION MACHINE BUILDER PROVIDED SUPPORTIVE PRESENCE, HOSPITALITY, PRAYER, FACILITATED INTERACTION WITH THERAPY ANIMAL. PT EXPRESSED GRATITUDE, AIME.
[2024-09-06] MEDS ORDERED: BACTRIM DS TAB1 EACH PO (10:35)
--- NOTE | 2024-09-06 10:47 | NUR ---
Pt in chair, room air, no c/o pain, purewick in place. CM in room earlier talking to pt about DC.
--- NOTE | 2024-09-06 11:07 | NUR ---
ORDERS FAXED TO [facility]
--- NOTE | 2024-09-06 11:15 | NUR ---
DC SUMMARY, HOME HEALTH ORDERS AND FACESHEET FAXED TO [facility].
--- NOTE | 2024-09-06 11:21 | NUR ---
WHEELCHAIR [facility] SCHEDULED FOR 1400 PICKUP TO TRANSPORT TO [facility]. CALLED AND SPOKE WITH THE [facility] STAFF, THEY WILL BE UP TO COMPLETE ASSESSMENT BEFORE 1:30 PM.
--- NOTE | 2024-09-06 12:40 | NUR ---
Up in chair, eating, Pt aware she will be dc later today back to [facility]
--- NOTE | 2024-09-06 13:16 | NUR ---
pT IN CHAIR, REQUIRED 2 PA/FWW TO STAND UP FROM CHAIR, COOP WITH ASSESSMENT, VITALS, SIGNED DC PAPERS, WENT THROUGH ALL HER BELONGINGS AND SET UP FOR DC. COOPERATIVE.
--- NOTE | 2024-09-06 13:58 | NUR ---
NOTIFIED SONADRIANNA, PATIENT WILL BE TRANSPORTED AT 1400.
--- NOTE | 2024-09-06 14:00 | NUR ---
Pt dc back to [facility] via transport w/c. Dc with all belongings and dc instructions.
== END 2024-09-06 13:58 | disposition home or self-care (01) | DRG 690 ==
LOC: ED 20:26 → MS 20:27
PROVIDERS: Internal Medicine; Student in an Organized Health Care Education/Training Program; ADMIT Family Medicine; ATTEND Family Medicine
DX: N39.0 Urinary tract infection, site not specified (principal); I10 Essential (primary) hypertension; E11.9 Type 2 diabetes mellitus without complications; J45.909 Unspecified asthma, uncomplicated; M79.7 Fibromyalgia; R29.6 Repeated falls; I48.91 Unspecified atrial fibrillation; E78.5 Hyperlipidemia, unspecified; F39 Unspecified mood [affective] disorder; M19.90 Unspecified osteoarthritis, unspecified site; I44.0 Atrioventricular block, first degree; E89.0 Postprocedural hypothyroidism; Z86.73 Personal history of transient ischemic attack (TIA), and cerebral infarction without residual deficits; Z95.5 Presence of coronary angioplasty implant and graft; Z91.81 History of falling; Z98.84 Bariatric surgery status; Z90.49 Acquired absence of other specified parts of digestive tract; Z90.710 Acquired absence of both cervix and uterus; Z98.890 Other specified postprocedural states; Z79.01 Long term (current) use of anticoagulants; Z91.013 Allergy to seafood; Z91.030 Bee allergy status; Z88.8 Allergy status to other drugs, medicaments and biological substances; Z79.2 Long term (current) use of antibiotics; Z79.899 Other long term (current) drug therapy; Z79.51 Long term (current) use of inhaled steroids; Z79.82 Long term (current) use of aspirin; Z79.890 Hormone replacement therapy; Z91.011 Allergy to milk products; Z82.49 Family history of ischemic heart disease and other diseases of the circulatory system; Z95.828 Presence of other vascular implants and grafts
CPT/HCPCS: 36415; 51701; 70450; 80053; 80162; 81001; 82607; 83036; 83605; 83735; 84100; 84484; 85025; 87088; 92507; 92523; 92610; 93005; 93010; 94762; 97161; 97165; 97530; 99285-25; A9270; J0696; J3475; J3480; J3490; J7060; J7121

== ENCOUNTER 2024-09-09 01:45 | Emergency (ER) | payer MEDICARE, OTHER ==
[~2024-09-09] VITALS: Ht 162.6 cm; Wt 62.5 kg
[~2024-09-09 01:45] MED LIST changes: +BACTRIM DS TAB1 EACH PO; +POTASSIUM CHLO10 MEQ PO
[2024-09-09] MEDS ORDERED: IBLOOD GLUCOSE TEST STRIP 1 EA TEST XX ONE (02:00)
[2024-09-09] MEDS ORDERED: LACTATED RINGER'S 1,000 ML IV ONE (02:30)
[2024-09-09 02:46] LABS: BASOPHILS 1.3 % (0-2); EOSINOPHILS 2.4 % (0-6); HEMATOCRIT 24.4 % (35.0-50.0); HEMOGLOBIN 8.1 g/dL (12.0-18.0); LYMPHOCYTES 23.1 % (24-44); MCH 29.9 (27-36); MCHC 33.1 g/dl (30-36); MCV 90.3 fl (81-99); MONOCYTES 7.4 % (0-12); NEUTROPHILS 65.8 % (39-80); PLATELET COUNT 189 K/uL (140-440); RBC 2.71 M/ul (4.3-5.7); RDW 18.6 (10.5-15.0)
[2024-09-09 03:04] LABS: ALBUMIN/GLOBULIN RATIO 0.71 (1.1-2.4); ANION GAP 6.6 (7-21); BILIRUBIN, TOTAL 0.6 mg/dL (0.2-1.0); BUN/CREATININE RATIO 22.35 (6.0-28.6); CALCIUM 7.5 mg/dL (8.5-10.1); CREATININE, SERUM 0.85 mg/dL (0.55-1.02); POTASSIUM 4.6 mmol/L (3.5-5.1); PROTEIN, TOTAL 4.8 g/dL (6.4-8.2)
[2024-09-09 03:08] LABS: BILIRUBIN, URINE NEGATIVE (negative); BLOOD/HGB, URINE NEGATIVE (Negative); KETONE, URINE SMALL (Negative); LEUK ESTERASE, URINE TRACE (negative); NITRITE, URINE NEGATIVE (negative); PH, URINE 5.5 (5-7)
[2024-09-09 03:21] LABS: BACTERIA, URINE 1+ /hpf (negative); CASTS, URINE NONE SEEN \\lpf; COLLECTION TYPE, URINE CLEAN CATCH; CRYSTALS, URINE URIC ACID 1+ (0-1+); EPITHELIAL CELLS, URINE SQUAMOUS 1+ /lpf (0-1+); REFLEX CULTURE, URINE Yes (No)
[2024-09-09] MEDS ORDERED: CEPHALEXIN500 MG PO (03:42)
[2024-09-09] MEDS ORDERED: CEPHALEXIN MONOHYDRATE 500 MG HOME.PACK PO ONE (03:45)
[2024-09-09 06:07] VITALS: BP 115/54
--- NOTE | 2024-09-09 16:13 | EKG ---
[facility] [address] [facility] [place] [address] Signed Normal sinus rhythm Nonspecific ST and T wave abnormality Abnormal ECG When compared with ECG of 05-SEP-2024 09:48, premature atrial complexes are no longer present T wave inversion no longer evident in Anterior leads Confirmed by Licha Melgar MD ([id number]) on 09/09/2024 4:13:30 PM Electronically Signed By: LICHA MELGAR MD 09/09/24 1613 PATIENT NAME: TERRELL BECERRIL [place] Electrocardiogram DATE OF : 47 PHYSICIAN: LICHA MELGAR MD REPORT #: [id number] REPORT IS CONFIDENTIAL AND NOT TO BE RELEASED WITHOUT AUTHORIZATION
== END 2024-09-09 06:07 ==
LOC: ED 01:45
PROVIDERS: Internal Medicine
DX: R55 Syncope and collapse (principal); N39.0 Urinary tract infection, site not specified; I10 Essential (primary) hypertension; E11.9 Type 2 diabetes mellitus without complications; J45.909 Unspecified asthma, uncomplicated; G47.33 Obstructive sleep apnea (adult) (pediatric); Z86.73 Personal history of transient ischemic attack (TIA), and cerebral infarction without residual deficits; Z91.013 Allergy to seafood; Z88.8 Allergy status to other drugs, medicaments and biological substances; Z79.899 Other long term (current) drug therapy
CPT/HCPCS: 36415; 51701; 80053; 81001; 83735; 83880; 84484; 85025; 87088; 93005; 93010; 99285-25; A9270; J7121

== ENCOUNTER 2024-09-09 10:51 | Inpatient (IN) | payer MEDICARE, OTHER ==
[2024-09-09] VITALS (20 sets, daily range): BP systolic 84–135; BP diastolic 37–59
[~2024-09-09] VITALS: Ht 162.6 cm; Wt 43.4 kg
[2024-09-09] MEDS ORDERED: PANTOPRAZOLE SODIUM 40 MG/10 ML VIAL IV ONE (11:15)
[2024-09-09] MEDS ORDERED: SODIUM CHLORIDE 0.9% 1,000 ML IV PRN (11:15)
[2024-09-09 11:27] LABS: BASOPHILS 1.1 % (0-2); EOSINOPHILS 1.4 % (0-6); HEMOGLOBIN 7.3 g/dL (12.0-18.0); LYMPHOCYTES 27.2 % (24-44); MCH 30.2 (27-36); MCHC 33.1 g/dl (30-36); MCV 91.2 fl (81-99); MONOCYTES 6.2 % (0-12); NEUTROPHILS 64.1 % (39-80); PLATELET COUNT 186 K/uL (140-440); RBC 2.41 M/ul (4.3-5.7); RDW 18.4 (10.5-15.0)
[2024-09-09 11:41] LABS: INR 2.17 (0.80-1.30); PARTIAL THROMBOPLASTIN TIME 31.9 Sec (22.9-41.3); PROTIME 22.9 Sec (11.2-14.2)
[2024-09-09 11:54] LABS: ALBUMIN 1.8 g/dL (3.4-5.0); ALBUMIN/GLOBULIN RATIO 0.67 (1.1-2.4); ANION GAP 6.7 (7-21); BILIRUBIN, TOTAL 0.5 mg/dL (0.2-1.0); BUN/CREATININE RATIO 27.9 (6.0-28.6); CALCIUM 7.3 mg/dL (8.5-10.1); CREATININE, SERUM 0.86 mg/dL (0.55-1.02); POTASSIUM 4.7 mmol/L (3.5-5.1); PROTEIN, TOTAL 4.5 g/dL (6.4-8.2)
[2024-09-09 12:02] LABS: BILIRUBIN, URINE NEGATIVE (negative); BLOOD/HGB, URINE NEGATIVE (Negative); KETONE, URINE TRACE (Negative); LEUK ESTERASE, URINE TRACE (negative); NITRITE, URINE NEGATIVE (negative)
[2024-09-09 12:03] LABS: ABO A; ANTIBODY SCREEN NEGATIVE; RH POSITIVE
[2024-09-09 12:09] LABS: EPITHELIAL CELLS, URINE SQUAMOUS 1+ /lpf (0-1+)
[2024-09-09 12:10] LABS: BACTERIA, URINE NONE SEEN /hpf (negative); CASTS, URINE NONE SEEN \\lpf; COLLECTION TYPE, URINE CLEAN CATCH; CRYSTALS, URINE NONE SEEN (0-1+); RED BLOOD CELLS, URINE 0-1 /hpf (0-5); REFLEX CULTURE, URINE No (No)
[2024-09-09 13:44] LABS: LACTIC ACID, BLOOD 1.5 mmol/L (0.4-2.0)
[2024-09-09 13:59] LABS: IS CROSSMATCH COMPATIBLE
[2024-09-09] MEDS ORDERED: ONDANSETRON 4 MG TAB ODT SL ONE (16:00)
--- NOTE | 2024-09-09 16:14 | EKG ---
[facility] [address] [facility] [place] [address] Signed Normal sinus rhythm T wave abnormality, consider lateral ischemia Abnormal ECG When compared with ECG of 09-SEP-2024 01:59, (Unconfirmed) Inverted T waves have replaced nonspecific T wave abnormality in Anterolateral leads Confirmed by Licha Melgar MD ([id number]) on 09/09/2024 4:13:41 PM Electronically Signed By: LICHA MELGAR MD 09/09/24 1614 PATIENT NAME: TERRELL BECERRIL [place] Electrocardiogram DATE OF : 47 PHYSICIAN: LICHA MELGAR MD REPORT #: [id number] REPORT IS CONFIDENTIAL AND NOT TO BE RELEASED WITHOUT AUTHORIZATION
[2024-09-09] MEDS ORDERED: HYDROmorphone HCL 1 MG/ML SYR IV ONE (16:15)
[2024-09-09] MEDS ORDERED: ACETAMINOPHEN 325 MG TAB PO PRN (18:00)
[2024-09-09 18:27] LABS: BASOPHILS 0.8 % (0-2); EOSINOPHILS 0.6 % (0-6); HEMATOCRIT 28.6 % (35.0-50.0); HEMOGLOBIN 9.5 g/dL (12.0-18.0); LYMPHOCYTES 26.4 % (24-44); MCH 29.4 (27-36); MCHC 33.2 g/dl (30-36); MCV 88.5 fl (81-99); MONOCYTES 7.3 % (0-12); NEUTROPHILS 64.9 % (39-80); PLATELET COUNT 168 K/uL (140-440); RBC 3.23 M/ul (4.3-5.7); RDW 17.9 (10.5-15.0)
[2024-09-09] MEDS ORDERED: diphenhydrAMINE HCL 50 MG/ML VIAL IV PRN (18:45)
[2024-09-09] MEDS ORDERED: HUMAN PROTHROMBIN COMPLX(PCC) 500 UNIT/20 ML VIAL IV ONE ×2 (18:45→19:45)
[2024-09-09] MEDS ORDERED: SODIUM CHLORIDE 0.9% 50 ML IV PRN (18:45)
[2024-09-09] MEDS ORDERED: ondansetron HCL 4 MG/2 ML VIAL IV PRN (20:30)
[2024-09-09] MEDS ORDERED: MELATONIN 3 MG TAB PO SCH (21:00)
[2024-09-09] MEDS ORDERED: GABAPENTIN 300 MG CAP PO SCH (21:00)
[2024-09-09] MEDS ORDERED: PANTOPRAZOLE SODIUM 40 MG/10 ML VIAL IV SCH (21:00)
[2024-09-09 22:17] LABS: BASOPHILS 1.1 % (0-2); HEMOGLOBIN 10.6 g/dL (12.0-18.0)
[2024-09-09 22:21] LABS: EOSINOPHILS 0.6 % (0-6); HEMATOCRIT 31.5 % (35.0-50.0); LYMPHOCYTES 26.9 % (24-44); MCH 29.5 (27-36); MCHC 33.8 g/dl (30-36); MCV 87.3 fl (81-99); MONOCYTES 7.2 % (0-12); NEUTROPHILS 64.2 % (39-80); PLATELET COUNT 146 K/uL (140-440); RBC 3.61 M/ul (4.3-5.7); RDW 17.5 (10.5-15.0)
[2024-09-09] MEDS ORDERED: LACTATED RINGER'S 1,000 ML IV ONE (23:15)
[2024-09-10] VITALS (31 sets, daily range): BP systolic 101–158; BP diastolic 42–78
[2024-09-10] MEDS ORDERED: ALBUTEROL SULFATE 0.083% 3 ML VIAL INH PRN (00:45)
[2024-09-10 01:47] LABS: BASOPHILS 1.3 % (0-2); EOSINOPHILS 0.8 % (0-6); HEMATOCRIT 31.1 % (35.0-50.0); HEMOGLOBIN 10.7 g/dL (12.0-18.0); LYMPHOCYTES 26.1 % (24-44); MCH 29.7 (27-36); MCHC 34.4 g/dl (30-36); MCV 86.2 fl (81-99); MONOCYTES 7.3 % (0-12); NEUTROPHILS 64.5 % (39-80); PLATELET COUNT 150 K/uL (140-440); RBC 3.61 M/ul (4.3-5.7); RDW 17.2 (10.5-15.0)
[2024-09-10 05:16] LABS: BASOPHILS 1.2 % (0-2); EOSINOPHILS 1.3 % (0-6); HEMATOCRIT 32.3 % (35.0-50.0); LYMPHOCYTES 26.2 % (24-44); MCH 29.6 (27-36); MCV 87.1 fl (81-99); MONOCYTES 6.8 % (0-12); NEUTROPHILS 64.5 % (39-80); PLATELET COUNT 151 K/uL (140-440); RBC 3.71 M/ul (4.3-5.7); RDW 17.4 (10.5-15.0)
[2024-09-10 05:27] LABS: ANION GAP 7.7 (7-21); BUN/CREATININE RATIO 31.63 (6.0-28.6); CALCIUM 7.4 mg/dL (8.5-10.1); CREATININE, SERUM 0.98 mg/dL (0.55-1.02); POTASSIUM 4.7 mmol/L (3.5-5.1)
[2024-09-10 05:35] LABS: DIGOXIN 1.3 ng/dL (0.9-2.0)
[2024-09-10] MEDS ORDERED: propofoL 200 MG/20 ML VIAL ONE (08:55)
[2024-09-10] MEDS ORDERED: LIDOCAINE HCL 2% 5 ML SDV ONE (08:55)
[2024-09-10] MEDS ORDERED: DIGOXIN 125 MCG TAB PO SCH (09:00)
[2024-09-10] MEDS ORDERED: LEVOTHYROXINE SODIUM 112 MCG TAB PO SCH (09:00)
[2024-09-10] MEDS ORDERED: DULOXETINE HCL 60 MG CAP PO SCH (09:00)
[2024-09-10] MEDS ORDERED: LACTATED RINGER'S 1,000 ML IV SCH (11:30)
[2024-09-10] MEDS ORDERED: PHARMACY RENAL DOSE ADJUSTMENT 1 DOSE MISC PO SCH (12:00)
[2024-09-10 18:16] LABS: BASOPHILS 1.3 % (0-2); EOSINOPHILS 1.2 % (0-6); HEMATOCRIT 28.2 % (35.0-50.0); HEMOGLOBIN 9.5 g/dL (12.0-18.0); LYMPHOCYTES 28.9 % (24-44); MCH 29.6 (27-36); MCHC 33.7 g/dl (30-36); MCV 87.7 fl (81-99); MONOCYTES 7.4 % (0-12); NEUTROPHILS 61.2 % (39-80); PLATELET COUNT 131 K/uL (140-440); RBC 3.22 M/ul (4.3-5.7); RDW 17.3 (10.5-15.0)
[2024-09-10] MEDS ORDERED: VANCOMYCIN HCL 125 MG CAP PO SCH (21:00)
[2024-09-11] VITALS (11 sets, daily range): BP systolic 104–146; BP diastolic 48–79
[2024-09-11 05:08] LABS: BASOPHILS 1.3 % (0-2); EOSINOPHILS 2.5 % (0-6); HEMATOCRIT 29.3 % (35.0-50.0); HEMOGLOBIN 9.9 g/dL (12.0-18.0); MCH 29.3 (27-36); MCHC 33.7 g/dl (30-36); MCV 86.8 fl (81-99); MONOCYTES 9.2 % (0-12); PLATELET COUNT 107 K/uL (140-440); RBC 3.38 M/ul (4.3-5.7)
[2024-09-11 05:22] LABS: BUN/CREATININE RATIO 34.21 (6.0-28.6); CALCIUM 7.2 mg/dL (8.5-10.1); CREATININE, SERUM 0.76 mg/dL (0.55-1.02); MAGNESIUM 1.8 mg/dL (1.8-2.4)
[2024-09-11] MEDS ORDERED: GABAPENTIN 300 MG CAP PO SCH (09:00)
[2024-09-11] MEDS ORDERED: DULOXETINE HCL 60 MG CAP PO SCH (09:00)
[2024-09-11] MEDS ORDERED: DIGOXIN 125 MCG TAB PO SCH (09:00)
[2024-09-11 11:07] LABS: IS CROSSMATCH COMPATIBLE
[2024-09-11] MEDS ORDERED: FUROSEMIDE 40 MG/4 ML VIAL IV ONE (14:15)
[2024-09-11] MEDS ORDERED: SUCRALFATE 1 GM TAB PO SCH (16:00)
[2024-09-12] VITALS (10 sets, daily range): BP systolic 109–165; BP diastolic 46–72
[2024-09-12 06:56] LABS: BASOPHILS 1.1 % (0-2); EOSINOPHILS 3.8 % (0-6); HEMATOCRIT 37.3 % (35.0-50.0); HEMOGLOBIN 12.5 g/dL (12.0-18.0); LYMPHOCYTES 25.6 % (24-44); MCH 29.4 (27-36); MCHC 33.5 g/dl (30-36); MCV 87.7 fl (81-99); MONOCYTES 8.9 % (0-12); NEUTROPHILS 60.6 % (39-80); PLATELET COUNT 138 K/uL (140-440); RBC 4.25 M/ul (4.3-5.7); RDW 17.3 (10.5-15.0)
[2024-09-12] MEDS ORDERED: LEVOTHYROXINE SODIUM 112 MCG TAB PO SCH (07:00)
[2024-09-12 07:06] LABS: ANION GAP 5.5 (7-21); BUN/CREATININE RATIO 19.1 (6.0-28.6); CALCIUM 7.5 mg/dL (8.5-10.1); CREATININE, SERUM 0.89 mg/dL (0.55-1.02); MAGNESIUM 1.8 mg/dL (1.8-2.4); POTASSIUM 3.5 mmol/L (3.5-5.1)
[2024-09-12] MEDS ORDERED: POTASSIUM CHLORIDE 10 MEQ TABCR PO ONE (07:30)
[2024-09-12] MEDS ORDERED: DIGOXIN 125 MCG TAB PO SCH (09:00)
[2024-09-12] MEDS ORDERED: DULOXETINE HCL 60 MG CAP PO SCH (11:54)
[2024-09-12] MEDS ORDERED: FUROSEMIDE 40 MG/4 ML VIAL IV ONE (12:00)
[2024-09-12] MEDS ORDERED: PANTOPRAZOLE SO40 MG PO (13:01)
[2024-09-12] MEDS ORDERED: SUCRALFATE1 GM PO (13:01)
[2024-09-12] MEDS ORDERED: GABAPENTIN 300 MG CAP PO SCH (15:00)
[2024-09-12] MEDS ORDERED: PANTOPRAZOLE SODIUM 40 MG TABEC PO SCH (21:00)
[2024-09-13 05:27] VITALS: BP 132/55
[2024-09-13 05:55] LABS: BASOPHILS 1.2 % (0.1-1.2); EOSINOPHILS 3.5 % (0.7-5.8); HEMATOCRIT 34.6 % (34.1-44.9); LYMPHOCYTES 29.4 % (19.3-51.7); MCH 28.9 PG (25.6-32.2); MCHC 31.8 g/dL (32.2-35.5); MCV 90.8 fL (79.4-94.8); MONOCYTES 7.7 % (4.7-12.5); NEUTROPHILS 57.7 % (34.0-71.1); PLATELET COUNT 130 K/uL (182-369); RBC 3.81 M/uL (3.93-5.22)
[2024-09-13 05:56] VITALS: BP 132/55
[2024-09-13 06:04] LABS: ANION GAP 7.8 (7-21); BUN/CREATININE RATIO 17.28 (6.0-28.6); CALCIUM 7.4 mg/dL (8.5-10.1); CREATININE, SERUM 0.81 mg/dL (0.55-1.02); MAGNESIUM 1.6 mg/dL (1.8-2.4); POTASSIUM 3.8 mmol/L (3.5-5.1)
[2024-09-13] MEDS ORDERED: MAGNESIUM SULFATE 2 GM/50 ML BAG IV SCH (07:30)
[2024-09-13 08:33] VITALS: BP 133/61
[2024-09-13 09:24] VITALS: BP 130/67
[2024-09-13] MEDS ORDERED: LASIX40 MG PO (10:36)
[2024-09-13 10:37] VITALS: BP 130/67
[2024-09-13 10:46] LABS: HELICOBACTER PYLORI AG,BY EIA Negative (Negative)
== END 2024-09-13 11:50 | DRG 378 ==
LOC: ED 10:51 → CCU 16:58 → MS 09-12 15:00
PROVIDERS: Emergency Medicine; Surgery; ADMIT Student in an Organized Health Care Education/Training Program; ATTEND Student in an Organized Health Care Education/Training Program
PROC: 0DJ08ZZ Inspection of Upper Intestinal Tract, Via Natural or Artificial Opening Endoscopic (ICD-10-PCS; 2024-09-10)
PROC: 30283B1 Transfusion of Nonautologous 4-Factor Prothrombin Complex Concentrate into Vein, Percutaneous Approach (ICD-10-PCS; 2024-09-10)
PROC: 30233N1 Transfusion of Nonautologous Red Blood Cells into Peripheral Vein, Percutaneous Approach (ICD-10-PCS; principal; 2024-09-10 09:00)
DX: K92.2 Gastrointestinal hemorrhage, unspecified (principal); D62 Acute posthemorrhagic anemia; N17.9 Acute kidney failure, unspecified; Z79.01 Long term (current) use of anticoagulants; I25.10 Atherosclerotic heart disease of native coronary artery without angina pectoris; I48.91 Unspecified atrial fibrillation; E03.9 Hypothyroidism, unspecified; F39 Unspecified mood [affective] disorder; I10 Essential (primary) hypertension; E11.9 Type 2 diabetes mellitus without complications; M10.9 Gout, unspecified; I95.9 Hypotension, unspecified; K21.9 Gastro-esophageal reflux disease without esophagitis; M25.562 Pain in left knee; M25.561 Pain in right knee; M54.31 Sciatica, right side; Z86.73 Personal history of transient ischemic attack (TIA), and cerebral infarction without residual deficits; Z90.49 Acquired absence of other specified parts of digestive tract; Z95.1 Presence of aortocoronary bypass graft; Z98.84 Bariatric surgery status; Z91.013 Allergy to seafood; Z87.440 Personal history of urinary (tract) infections; Z88.8 Allergy status to other drugs, medicaments and biological substances
CPT/HCPCS: 00731; 36415; 36430; 51702; 74177; 80048; 80053; 80162; 81001; 83605; 83690; 83735; 84484; 85025; 85610; 85730; 86850; 86900; 86901; 86922; 87324; 87338; 93005; 93010; 94799; 97162; 97166; 97530; 99285-25; A9270; J1171; J1938; J2003; J2405; J2470; J2704; J3475; J7030; J7121; J7168; P9016; Q9967

== ENCOUNTER 2024-09-27 04:16 | Emergency (ER) | payer MEDICARE, OTHER ==
[~2024-09-27] VITALS: Ht 162.6 cm; Wt 74.8 kg
[~2024-09-27 04:16] MED LIST changes: +LASIX40 MG PO
[2024-09-27 04:37] LABS: HEMATOCRIT 34.2 % (34.1-44.9); HEMOGLOBIN 10.9 g/dL (11.2-15.7); LYMPHOCYTES 26.1 % (19.3-51.7); MCH 29.3 PG (25.6-32.2); MCHC 31.9 g/dL (32.2-35.5); MCV 91.9 fL (79.4-94.8); MONOCYTES 9.6 % (4.7-12.5); NEUTROPHILS 58.7 % (34.0-71.1); PLATELET COUNT 197 K/uL (182-369); RBC 3.72 M/uL (3.93-5.22)
[2024-09-27 04:59] LABS: ALBUMIN 1.9 g/dL (3.4-5.0); ALBUMIN/GLOBULIN RATIO 0.61 (1.1-2.4); ANION GAP 9.2 (7-21); BILIRUBIN, TOTAL 0.4 mg/dL (0.2-1.0); BUN/CREATININE RATIO 20.95 (6.0-28.6); CALCIUM 7.3 mg/dL (8.5-10.1); CREATININE, SERUM 1.05 mg/dL (0.55-1.02); MAGNESIUM 1.6 mg/dL (1.8-2.4); POTASSIUM 3.2 mmol/L (3.5-5.1)
[2024-09-27] MEDS ORDERED: POTASSIUM CHLORIDE 10 MEQ TABCR PO ONE ×2 (05:30→06:45)
[2024-09-27] MEDS ORDERED: MAGNESIUM OXIDE 400 MG TABLET PO ONE (05:30)
[2024-09-27 06:09] LABS: BILIRUBIN, URINE NEGATIVE (negative); BLOOD/HGB, URINE NEGATIVE (Negative); KETONE, URINE NEGATIVE (Negative); LEUK ESTERASE, URINE MODERATE (negative); NITRITE, URINE NEGATIVE (negative)
[2024-09-27 06:28] LABS: BACTERIA, URINE 1+ /hpf (negative); CASTS, URINE NONE SEEN \\lpf; CRYSTALS, URINE NONE SEEN (0-1+); EPITHELIAL CELLS, URINE SQUAMOUS 1+ /lpf (0-1+); RED BLOOD CELLS, URINE 0-1 /hpf (0-5); REFLEX CULTURE, URINE Yes (No); WHITE BLOOD CELLS, URINE >50 /HPF (0-5)
[2024-09-27 06:34] LABS: ABO A; ANTIBODY SCREEN NEGATIVE; RH POSITIVE
[2024-09-27] MEDS ORDERED: NITROFURANTOIN MONOHYD MACROCR 100 MG CAP PO ONE (06:45)
[2024-09-27] MEDS ORDERED: FUROSEMIDE 40 MG TAB PO ONE (06:45)
[2024-09-27 08:20] VITALS: BP 134/56
--- NOTE | 2024-09-28 19:13 | EKG ---
[facility] [address] [facility] [place] [address] Signed Atrial fibrillation Low voltage QRS Septal infarct , age undetermined Abnormal ECG When compared with ECG of 09-SEP-2024 12:08, Atrial fibrillation has replaced Sinus rhythm Confirmed by Licha Melgar MD ([id number]) on 09/28/2024 7:12:58 PM Electronically Signed By: LICHA MELGAR MD 09/28/241912 PATIENT NAME: TERRELL BECERRIL [place] Electrocardiogram DATE OF : 47 PHYSICIAN: LICHA MELGAR MD REPORT #: [id number] REPORT IS CONFIDENTIAL AND NOT TO BE RELEASED WITHOUT AUTHORIZATION
== END 2024-09-27 08:05 ==
LOC: ED 04:16
PROVIDERS: Internal Medicine
DX: R51.9 Headache, unspecified (principal); N39.0 Urinary tract infection, site not specified; M25.571 Pain in right ankle and joints of right foot; M25.572 Pain in left ankle and joints of left foot; I10 Essential (primary) hypertension; J45.909 Unspecified asthma, uncomplicated; M19.90 Unspecified osteoarthritis, unspecified site; G47.33 Obstructive sleep apnea (adult) (pediatric); Z88.8 Allergy status to other drugs, medicaments and biological substances; Z91.030 Bee allergy status; Z79.899 Other long term (current) drug therapy; Z79.2 Long term (current) use of antibiotics
CPT/HCPCS: 36415; 70450; 71045; 72125; 80053; 81001; 83735; 83880; 84484; 85025; 86850; 86900; 86901; 87088; 93005; 93010; 99285-25; A9270

== ENCOUNTER 2024-09-30 04:04 | Emergency (ER) | payer MEDICARE, OTHER ==
[~2024-09-30] VITALS: Ht 162.6 cm; Wt 74.8 kg
[2024-09-30 04:54] LABS: ALBUMIN/GLOBULIN RATIO 0.65 (1.1-2.4); ALCOHOL, MEDICAL <3 ng/dL (<3); ALKALINE PHOSPHATASE 129 U/L (46-116); ALT (SGPT) 31 U/L (14-59); ANION GAP 12.8 (7-21); AST (SGOT) 44 U/L (15-37); BILIRUBIN, TOTAL 0.6 mg/dL (0.2-1.0); BUN/CREATININE RATIO 22.36 (6.0-28.6); CALCIUM 7.6 mg/dL (8.5-10.1); CARBON DIOXIDE 24 mmol/L (21-32); CHLORIDE 109 mmol/L (98-107); CREATININE, SERUM 0.76 mg/dL (0.55-1.02); GLOMERULAR FILTRATION RATE,EST 80 mL/min (>60); POTASSIUM 3.8 mmol/L (3.5-5.1); PROTEIN, TOTAL 5.1 g/dL (6.4-8.2); UREA NITROGEN 17 mg/dL (7-18)
[2024-09-30] MEDS ORDERED: LIDOCAINE 2% VISCOUS 6 ML SYR TOP ONE (05:30)
[2024-09-30 06:03] LABS: BILIRUBIN, URINE NEGATIVE (negative); BLOOD/HGB, URINE TRACE-I (Negative); KETONE, URINE NEGATIVE (Negative); LEUK ESTERASE, URINE LARGE (negative); NITRITE, URINE NEGATIVE (negative)
[2024-09-30 06:17] LABS: CRYSTALS, URINE NONE SEEN (0-1+); EPITHELIAL CELLS, URINE SQUAMOUS 1+ /lpf (0-1+)
[2024-09-30 06:18] LABS: BACTERIA, URINE 1+ /hpf (negative); CASTS, URINE NONE SEEN \\lpf; COLLECTION TYPE, URINE CLEAN CATCH; REFLEX CULTURE, URINE Yes (No)
[2024-09-30 06:21] LABS: WHITE BLOOD CELLS, URINE 41-50 /HPF (0-5)
[2024-09-30 06:49] LABS: BASOPHILS 0.8 % (0.1-1.2); EOSINOPHILS 2.5 % (0.7-5.8); HEMATOCRIT 30.7 % (34.1-44.9); HEMOGLOBIN 10.2 g/dL (11.2-15.7); LYMPHOCYTES 19.1 % (19.3-51.7); MCH 29.7 PG (25.6-32.2); MCHC 33.2 g/dL (32.2-35.5); MCV 89.5 fL (79.4-94.8); NEUTROPHILS 68.1 % (34.0-71.1); RBC 3.43 M/uL (3.93-5.22)
[2024-09-30 06:54] LABS: PLATELET COUNT 16 K/uL (182-369)
[2024-09-30] MEDS ORDERED: MACROBID 100 M100 MG PO (07:02)
[2024-09-30 08:17] VITALS: BP 145/98
== END 2024-09-30 08:17 | disposition home or self-care (01) ==
LOC: ED 04:04
PROVIDERS: Family Medicine
DX: S01.81XA Laceration without foreign body of other part of head, initial encounter (principal); S13.4XXA Sprain of ligaments of cervical spine, initial encounter; K59.00 Constipation, unspecified; I10 Essential (primary) hypertension; E11.9 Type 2 diabetes mellitus without complications; J45.909 Unspecified asthma, uncomplicated; M19.90 Unspecified osteoarthritis, unspecified site; G47.33 Obstructive sleep apnea (adult) (pediatric); Z91.013 Allergy to seafood; Z88.8 Allergy status to other drugs, medicaments and biological substances; Z79.899 Other long term (current) drug therapy; W06.XXXA Fall from bed, initial encounter
CPT/HCPCS: 12013; 36415; 51702; 70450; 72125; 74177; 80053; 81001; 85025; 87088; 99284-25; A4311; G0480

== ENCOUNTER 2024-10-16 07:37 | Emergency (ER) | payer MEDICARE, OTHER ==
[~2024-10-16] VITALS: Ht 162.6 cm; Wt 78.0 kg
[2024-10-16 08:52] LABS: ALBUMIN 1.6 g/dL (3.4-5.0); ALBUMIN/GLOBULIN RATIO 0.47 (1.1-2.4); ANION GAP 11.3 (7-21); BILIRUBIN, TOTAL 0.5 mg/dL (0.2-1.0); BUN/CREATININE RATIO 13.09 (6.0-28.6); CALCIUM 7.7 mg/dL (8.5-10.1); CREATININE, SERUM 0.84 mg/dL (0.55-1.02); POTASSIUM 3.3 mmol/L (3.5-5.1)
[2024-10-16 08:54] LABS: BASOPHILS 0.9 % (0.1-1.2); EOSINOPHILS 1.5 % (0.7-5.8); HEMATOCRIT 33.3 % (34.1-44.9); HEMOGLOBIN 10.9 g/dL (11.2-15.7); LYMPHOCYTES 17.5 % (19.3-51.7); MCH 29.5 PG (25.6-32.2); MCHC 32.7 g/dL (32.2-35.5); MCV 90.2 fL (79.4-94.8); MONOCYTES 9.3 % (4.7-12.5); NEUTROPHILS 70.2 % (34.0-71.1); PLATELET COUNT 201 K/uL (182-369); RBC 3.69 M/uL (3.93-5.22)
[2024-10-16 09:08] LABS: INR 1.06 (0.80-1.30); PROTIME 13.4 Sec (11.2-14.2)
[2024-10-16 10:27] LABS: BILIRUBIN, URINE NEGATIVE (negative); BLOOD/HGB, URINE NEGATIVE (Negative); KETONE, URINE NEGATIVE (Negative); LEUK ESTERASE, URINE MODERATE (negative); NITRITE, URINE NEGATIVE (negative)
[2024-10-16] MEDS ORDERED: SODIUM CHLORIDE 0.9% 500 ML IV PRN (10:30)
[2024-10-16] MEDS ORDERED: ACETAMINOPHEN 500 MG TAB PO ONE (10:30)
[2024-10-16 10:33] LABS: CASTS, URINE NONE SEEN \\lpf; CRYSTALS, URINE NONE SEEN (0-1+); RED BLOOD CELLS, URINE 0-1 /hpf (0-5); WHITE BLOOD CELLS, URINE >50 /HPF (0-5)
[2024-10-16 10:35] LABS: BACTERIA, URINE 1+ /hpf (negative); COLLECTION TYPE, URINE CATH; EPITHELIAL CELLS, URINE SQUAMOUS 1+ /lpf (0-1+); REFLEX CULTURE, URINE Yes (No)
[2024-10-16] MEDS ORDERED: LEVOFLOXACIN750 MG PO (11:24)
[2024-10-16] MEDS ORDERED: levoFLOXacin 750 MG TAB PO ONE (11:30)
[2024-10-16 11:43] VITALS: BP 167/67
--- NOTE | 2024-10-16 20:53 | EKG ---
[facility] [address] [facility] [place] [address] Signed Atrial fibrillation Low voltage QRS Septal infarct (cited on or before 27-SEP-2024) Abnormal ECG When compared with ECG of 27-SEP-2024 04:34, Questionable change in QRS axis QT has shortened Confirmed by Gualberto Bueno MD () on 10/16/2024 8:53:32 PM Electronically Signed By: GUALBERTO BUENO MD 10/16/242052 PATIENT NAME: TERRELL BECERRIL [place] Electrocardiogram DATE OF : 47 PHYSICIAN: GUALBERTO BUENO MD REPORT #: [id number] REPORT IS CONFIDENTIAL AND NOT TO BE RELEASED WITHOUT AUTHORIZATION
== END 2024-10-16 11:44 | disposition home or self-care (01) ==
LOC: ED 07:37
PROVIDERS: Emergency Medicine
DX: N39.0 Urinary tract infection, site not specified (principal); I10 Essential (primary) hypertension; E11.9 Type 2 diabetes mellitus without complications; J45.909 Unspecified asthma, uncomplicated; G47.33 Obstructive sleep apnea (adult) (pediatric); I63.9 Cerebral infarction, unspecified; Z86.73 Personal history of transient ischemic attack (TIA), and cerebral infarction without residual deficits; Z79.899 Other long term (current) drug therapy; Z79.51 Long term (current) use of inhaled steroids; Z91.013 Allergy to seafood; Z88.8 Allergy status to other drugs, medicaments and biological substances; Z91.030 Bee allergy status
CPT/HCPCS: 36415; 70450; 70496; 70498; 70551; 71045; 80053; 81001; 85025; 85610; 85730; 87088; 93005; 93010; 99285-25; A9270; J7040; Q9967

== ENCOUNTER 2024-10-21 12:57 | Emergency (ER) | payer MEDICARE, OTHER ==
[~2024-10-21] VITALS: Ht 162.6 cm; Wt 80.0 kg
[~2024-10-21 12:57] MED LIST changes: +LEVOFLOXACIN750 MG PO
[2024-10-21] MEDS ORDERED: NITROGLYCERIN 0.4 MG SUBL SL PRN (13:15)
[2024-10-21] MEDS ORDERED: ASPIRIN 81 MG CHEW PO ONE (13:15)
[2024-10-21 13:32] LABS: BASOPHILS 0.9 % (0.1-1.2); EOSINOPHILS 2.4 % (0.7-5.8); HEMATOCRIT 32.5 % (34.1-44.9); HEMOGLOBIN 10.5 g/dL (11.2-15.7); LYMPHOCYTES 19.3 % (19.3-51.7); MCH 29.6 PG (25.6-32.2); MCHC 32.3 g/dL (32.2-35.5); MCV 91.5 fL (79.4-94.8); MONOCYTES 8.5 % (4.7-12.5); PLATELET COUNT 172 K/uL (182-369); RBC 3.55 M/uL (3.93-5.22)
[2024-10-21 13:58] LABS: ALBUMIN 1.7 g/dL (3.4-5.0); ALBUMIN/GLOBULIN RATIO 0.53 (1.1-2.4); BILIRUBIN, TOTAL 0.3 mg/dL (0.2-1.0); BUN/CREATININE RATIO 6.3 (6.0-28.6); CALCIUM 7.6 mg/dL (8.5-10.1); CREATININE, SERUM 1.11 mg/dL (0.55-1.02); MAGNESIUM 1.4 mg/dL (1.8-2.4); PROTEIN, TOTAL 4.9 g/dL (6.4-8.2)
[2024-10-21 14:55] VITALS: BP 161/59
[2024-10-22] MEDS ORDERED: POTASSIUM CHLO10 MEQ PO (07:52)
--- NOTE | 2024-10-22 12:15 | EKG ---
[facility] [address] [facility] [place] [address] Signed Atrial fibrillation Low voltage QRS Nonspecific T wave abnormality Abnormal ECG When compared with ECG of 16-OCT-2024 09:00, Questionable change in QRS axis Confirmed by Martina Galdamez DO ([id number]) on 10/22/2024 12:15:08 PM Electronically Signed By: MARTINA GALDAMEZ DO 10/22/24 1215 PATIENT NAME: TERRELL BECERRIL [place] Electrocardiogram DATE OF : 47 PHYSICIAN: MARTINA GALDAMEZ DO REPORT #: [id number] REPORT IS CONFIDENTIAL AND NOT TO BE RELEASED WITHOUT AUTHORIZATION
== END 2024-10-21 15:15 | disposition home or self-care (01) ==
LOC: ED 12:57
PROVIDERS: Emergency Medicine
DX: J90 Pleural effusion, not elsewhere classified (principal); I10 Essential (primary) hypertension; E11.9 Type 2 diabetes mellitus without complications; J45.909 Unspecified asthma, uncomplicated; G47.33 Obstructive sleep apnea (adult) (pediatric); Z86.73 Personal history of transient ischemic attack (TIA), and cerebral infarction without residual deficits; M19.90 Unspecified osteoarthritis, unspecified site; Z90.49 Acquired absence of other specified parts of digestive tract; Z90.711 Acquired absence of uterus with remaining cervical stump; Z91.018 Allergy to other foods; Z88.8 Allergy status to other drugs, medicaments and biological substances; Z79.899 Other long term (current) drug therapy
CPT/HCPCS: 36415; 71045; 80053; 83735; 83880; 84484; 85025; 93005; 93010; 99285-25

== ENCOUNTER 2024-10-22 07:29 | Emergency (ER) | payer MEDICARE, OTHER ==
[~2024-10-22] VITALS: Ht 162.6 cm; Wt 84.8 kg
[2024-10-22 07:47] LABS: BASOPHILS 0.9 % (0.1-1.2); EOSINOPHILS 2.4 % (0.7-5.8); HEMATOCRIT 33.4 % (34.1-44.9); HEMOGLOBIN 10.6 g/dL (11.2-15.7); LYMPHOCYTES 21.8 % (19.3-51.7); MCH 29.1 PG (25.6-32.2); MCHC 31.7 g/dL (32.2-35.5); MCV 91.8 fL (79.4-94.8); MONOCYTES 7.1 % (4.7-12.5); NEUTROPHILS 66.8 % (34.0-71.1); PLATELET COUNT 168 K/uL (182-369); RBC 3.64 M/uL (3.93-5.22)
[2024-10-22] MEDS ORDERED: POTASSIUM CHLO10 MEQ PO (07:52)
[2024-10-22 08:10] LABS: ALBUMIN 1.7 g/dL (3.4-5.0); ALBUMIN/GLOBULIN RATIO 0.55 (1.1-2.4); ANION GAP 9.9 (7-21); BILIRUBIN, TOTAL 0.3 mg/dL (0.2-1.0); BUN/CREATININE RATIO 8.82 (6.0-28.6); CALCIUM 7.5 mg/dL (8.5-10.1); CREATININE, SERUM 1.02 mg/dL (0.55-1.02); POTASSIUM 2.9 mmol/L (3.5-5.1); PROTEIN, TOTAL 4.8 g/dL (6.4-8.2)
[2024-10-22] MEDS ORDERED: POTASSIUM CHLORIDE 10 MEQ TABCR PO ONE (11:15)
[2024-10-22 11:56] VITALS: BP 155/61
--- NOTE | 2024-10-22 12:19 | EKG ---
[facility] [address] [facility] [place] [address] Signed Atrial fibrillation Low voltage QRS Septal infarct , age undetermined Abnormal ECG When compared with ECG of 21-OCT-2024 12:57, Confirmed by Martina Galdamez DO ([id number]) on 10/22/2024 12:18:52 PM Electronically Signed By: MARTINA GALDAMEZ DO 10/22/24 1219 PATIENT NAME: TERRELL BECERRIL [place] Electrocardiogram DATE OF : 47 PHYSICIAN: MARTINA GALDAMEZ DO REPORT #: [id number] REPORT IS CONFIDENTIAL AND NOT TO BE RELEASED WITHOUT AUTHORIZATION
== END 2024-10-22 12:07 | disposition home or self-care (01) ==
LOC: ED 07:29
PROVIDERS: Emergency Medicine
DX: R07.9 Chest pain, unspecified (principal); R79.89 Other specified abnormal findings of blood chemistry; E87.6 Hypokalemia; B02.9 Zoster without complications; Z66 Do not resuscitate; Z91.013 Allergy to seafood; Z88.8 Allergy status to other drugs, medicaments and biological substances; Z91.030 Bee allergy status; Z79.899 Other long term (current) drug therapy
CPT/HCPCS: 36415; 71045; 71260; 80053; 83690; 83880; 84484; 85025; 93005; 93010; 99285-25; A9270; Q9967

== ENCOUNTER 2024-11-21 15:21 | Emergency (ER) | payer MEDICARE, OTHER ==
[~2024-11-21] VITALS: Ht 162.6 cm; Wt 72.8 kg
[2024-11-21] MEDS ORDERED: HYDROCODONE/ACETA 5/325 TAB PO ONE (17:30)
[2024-11-21 18:20] VITALS: BP 131/62
== END 2024-11-21 18:24 | disposition home or self-care (01) ==
LOC: ED 15:21
DX: S01.01XA Laceration without foreign body of scalp, initial encounter (principal); I10 Essential (primary) hypertension; E11.9 Type 2 diabetes mellitus without complications; J45.909 Unspecified asthma, uncomplicated; I25.2 Old myocardial infarction; G47.30 Sleep apnea, unspecified; Z95.5 Presence of coronary angioplasty implant and graft; Z86.73 Personal history of transient ischemic attack (TIA), and cerebral infarction without residual deficits; Z88.8 Allergy status to other drugs, medicaments and biological substances; Z91.013 Allergy to seafood; Z91.030 Bee allergy status; Z79.890 Hormone replacement therapy; Z79.899 Other long term (current) drug therapy; W05.0XXA Fall from non-moving wheelchair, initial encounter
CPT/HCPCS: 12015; 70450; 72125; 99284-25